=== PATIENT | male | born 1950 | race Caucasian/White ===

== ENCOUNTER → 2017-05-24 07:36 | Outpatient (CLI) | payer MEDICARE, OTHER, SELFPAY ==
--- NOTE | 2017-05-24 07:41 | CT_ITS ---
EXAM: CT LUNG LOW DOSE WO CONTRAST COMPARISON: None HISTORY: 66-year-old male asymptomatic with 30 pack-year smoking history ORDERING PHYSICIAN: Alondra Quan MD PATIENT AGE: 66 years TECHNIQUE: The exam was performed on a GE Light Speed [address] scanner using 2.90 mGy CTDI. A low dose helical CT CHEST was performed on a multi-detector scanner. All CT scans at the facility use one or more dose reduction, viz: automated exposure control; ma/kV adjustment per patient size (including targeted exams where dose is matched to indication; i.e. head); or iterative reconstruction technique. The LDCT was performed in a facility that meets the criteria for the screening program. Data regarding this exam was submitted to ACR which is an approved registry. The order for this exam indicates that it came as a result of a lung cancer screening counseling shard decision-making visit that included all the elements required of such a visit including smoking cessation. The radiologist interpreting this exam meets the CMS criteria for the LDCT lung cancer screening program. The exam is reported using the Lung-RADS classification scale and reported to the ACR registry. NOTE: This study was performed for the specific purposes of lung cancer screening and is not an alternative to diagnostic chest CT. RADIATION DOSE: CTDI vol(CT dose Index-volume) = 2.90mG DLP (Dose Length Product) = 112.03 mGcm FINDINGS: Centrilobular emphysematous change is. Hyperinflation with bronchial thickening consistent with obstructive chronic bronchitis. Severe coronary artery calcifications are present. Cardiac pacemaker device is present.. 4 mm noncalcified nodule right upper lobe. IMPRESSION: 1. Lung RADS Category: 2, benign 2. Other findings: Centrilobular emphysema/COPD Coronary artery disease RECOMMENDATIONS: 12 month LDCT follow-up
== END ==
PROVIDERS: Family Provider Family Medicine; PCP Family Medicine; Visit Provider Family Medicine
DX: Z87.891 Personal history of nicotine dependence (principal); Z12.2 Encounter for screening for malignant neoplasm of respiratory organs

== ENCOUNTER → 2018-08-10 12:48 | Outpatient (CLI) | payer MEDICARE, OTHER, SELFPAY ==
--- NOTE | 2018-08-10 12:56 | XR_ITS ---
XR ribs LT 2V HISTORY: ITS.REASON: LT CHEST WALL PAIN ORDERING PHYSICIAN: Aba Espinoza MD PATIENT AGE: 67 years Comparison: None FINDINGS: Bone density appears normal. There is a complete mildly fracture through the lateral left seventh rib. There is no definite evidence of pneumothorax or pleural effusion. Impression: Acute lateral left seventh rib fracture.
--- NOTE | 2018-08-10 12:56 | XR_ITS ---
XR chest 2V HISTORY: ITS.REASON: LT CHEST WALL PAIN ORDERING PHYSICIAN: Aba Espinoza MD PATIENT AGE: 67 years COMPARISON: 06/12/2016. FINDINGS: Comparison was also made with a left-sided rib series performed on the same day. The lateral left seventh rib fracture is not well seen on this exam. Cardiac silhouette, hilar areas and pulmonary vessels are normal. Lungs are clear without pleural effusion or pneumothorax. There is now a left subclavian cardiac pacemaker with the lead wire projected over the expected right ventricle area. This appears to be intact. Also noted is some pleural-based density along the left lateral hemithorax area. The underlying ribs however appear to be intact except the rib series showed a acute lateral left rib fracture. Impression: Nonspecific left lateral pleural process which could be thickening although considering symptoms in this area and a acute left lateral rib fracture consider CT scan of this area for further evaluation.
== END ==
PROVIDERS: PCP Family Medicine; Visit Provider Family Medicine
DX: R07.89 Other chest pain (principal)
CPT/HCPCS: 71046; 71100

== ENCOUNTER → 2019-06-29 07:40 | Outpatient (CLI) | payer MEDICARE, OTHER, SELFPAY ==
--- NOTE | 2019-06-29 07:45 | US_ITS ---
PROCEDURE: US EXTREMITY LT LIMITED CLINICAL INDICATION: BURSITIS Palpable mass of the elbow posteriorly COMPARISON: No exams were available for comparison FINDINGS: There is a hyperechoic collection along the posterior aspect of the elbow in the subcutaneous tissues which measures 5 x 3 cm. This contains hyperechoic mature which has some internal motion suggesting that this is fluid. There are few other areas of slightly decreased echogenicity which are rounded in nature IMPRESSION: Hyperechoic fluid collection along the posterior elbow with some internal debris. This could represent blood or pus or bursal fluid with internal debris. Dictated by: Je Plasencia MD 06/29/2019 21:16 Electronically signed by Je Plasencia MD in [place] 06/29/2019 21:16
== END ==
PROVIDERS: PCP Family Medicine; Visit Provider Family Medicine
DX: M70.22 Olecranon bursitis, left elbow (principal)
CPT/HCPCS: 76882

== ENCOUNTER → 2020-12-31 10:55 | Outpatient (CLI) | payer MEDICARE, OTHER, SELFPAY ==
--- NOTE | 2020-12-31 10:59 | XR_ITS ---
PROCEDURE: XR KNEE RT 3V CLINICAL INDICATION: RT KNEE PAIN COMPARISON: No exams were available for comparison FINDINGS: No acute fracture or dislocation. There are tricompartmental osteoarthritic changes greatest at the lateral compartment. There are tissue calcifications with vascular calcifications noted. One faint calcific density is present in dorsal to the distal femur at 14 mm and could be related to a soft tissue calcification or a loose body. Fragmentation is noted along tibial tuberosity which appears chronic IMPRESSION: Osteoarthritic changes, no acute finding. Possible loose body in the popliteal region. Dictated by: Je Plasencia MD 12/31/2020 18:55 Je Plasencia MD in [place] 12/31/2020 18:55
== END ==
PROVIDERS: PCP Family Medicine; Visit Provider Family Medicine
DX: M25.561 Pain in right knee (principal)
CPT/HCPCS: 73562

== ENCOUNTER → 2021-11-16 14:26 | Outpatient (CLI) | payer MEDICARE, OTHER, SELFPAY ==
--- NOTE | 2021-11-16 14:31 | XR_ITS ---
FINAL REPORT CLINICAL HISTORY: ISCHEMIC CARDIOMYOPAHY, S/P CABGX5 COMPARISON: 06/12/2016 FINDINGS: Cardiomegaly is noted. Postoperative changes are seen from median sternotomy. A left subclavian ICD is present. There are postoperative changes in the right axillary region. No acute pulmonary abnormalities identified. There is no pneumothorax. The bony thorax is intact. IMPRESSION: No acute cardiopulmonary process. Reviewed, Interpreted and Dictated by Pieter Sampson III, MD Transcribed by Sosa Hall Authenticated and [facility]
== END ==
PROVIDERS: PCP Family Medicine; Visit Provider Family Medicine
DX: I25.5 Ischemic cardiomyopathy (principal); Z95.1 Presence of aortocoronary bypass graft
CPT/HCPCS: 71046

== ENCOUNTER 2023-07-01 11:15 | Outpatient (CLI) | payer MEDICARE, SELFPAY ==
--- NOTE | 2023-07-01 11:24 | XR_ITS ---
FINAL REPORT CLINICAL HISTORY: PERIPHERAL POLYNEUROPATHY COMPARISON: None FINDINGS: 5 views of the lumbar spine were obtained. There is no evidence of fracture or dislocation. There is mild right curvature of the lumbar spine. There are moderate and severe degenerative changes present, with vacuum phenomenon present at the L4-5 and L5-S1 levels. There is mild retrolisthesis of L1 on L2, L2 on L3, L3 on L4, and L4 on L5. Vascular calcifications are noted. IMPRESSION: No acute bony abnormality. Moderate and severe degenerative changes as described. Reviewed, Interpreted and Dictated by Pieter Sampson III, MD Transcribed by Julia Aguirre Authenticated and . [facility]
== END 2023-07-01 23:59 | disposition home or self-care (01) ==
PROVIDERS: PCP Family Medicine; Visit Provider Family Medicine
DX: G62.9 Polyneuropathy, unspecified (principal)
CPT/HCPCS: 72110

== ENCOUNTER 2024-01-18 14:45 | Outpatient (CLI) | payer MEDICARE, SELFPAY ==
--- OUTSIDE RECORDS SUMMARY | 2024-01-18 14:48 | XMS_ITS ---
Author Organization [facility] Address [address] [facility] [address] [id number] Care Team Providers Care Jacquard Loom Carpet Weaver Name Role Phone Mirta Quan Primary Care Provider Mariah Heaton Unavailable [phone] ALLERGIES No Known Allergies REASON FOR VISIT wanting an xray, possible cracked ribs MEDICATIONS Medication SIG (Take, Route, Frequency, Duration) Notes Start Date End Date Status Zithromax Z-Da 250 MG 2 pills first day then one daily for 4 days orally as directed for 5 days 01/18/2024 Active Albuterol Sulfate HFA 108 (90 Base) MCG/ACT 1 puff as needed Inhalation every 4 hrs, prn 01/18/2024 Active Escitalopram Oxalate 20 MG TAKE 1 TABLET BY MOUTH EVERY DAY FOR 90 DAYS for 90 days Not-Taking Rosuvastatin Calcium 40 MG 1 tablet Orally Once a day Active Allopurinol 100 MG 1 tablet Orally Once a day for 90 days Active glipiZIDE 5 MG 3 tab(s) orally once a day Active Spironolactone 25 MG 1 tab(s) orally onc e a day Active Jardiance 25 MG 1 tab(s) orally once a day (in the morning) Active Carvedilol 25 MG 1 tab(s) Orally 2 ti mes a day Active Entresto 24-26 MG 1 tab(s) Orally 2 ti mes a day Active Nitroglycerin 0.4 MG/SPRAY 1 spray(s) sublingually every 5 minutes Active Torsemide 10 MG 1 tablet orally once a prn Active Magnesium Oxide 400 MG 1 tab(s) orally 2 times a day Active Aspirin 81 MG 1 tab(s) orally once a day Active Basaglar KwikPen 100 UNIT/ML 24 units qd subcutaneously once daily Active rOPINIRole HCl 0.5 MG 1 tablet 1 to 3 ho urs before bedtime Orally at bedtime Active Nexletol 180 MG 1 tablet Orally Once a day for 30 day(s) Active Ozempic (0.25 or 0.5 MG/DOSE) 2 MG/3ML 0.5 Subcutaneous once a week Active SOCIAL HISTORY Tobacco Use: Social History Observation Description Date Smoking Status WARNING: Information temporarily unavailable Sex Assigned At : Social History Observation Description Sex Assigned At Unknown CURRENT TOBACCO USE: Question Answer Notes Are you a: Stopped 08/14/2016 VITAL SIGNS Weight 270.2 lbs 01/18/2024 Blood pressure systolic 118 mm Hg 01/18/20 24 Blood pressure diastolic 66 mm Hg 024 Heart Rate 73 /min 01/18/2024 Height 75 in 01/18/2024 BMI 33.77 kg/m2 01/18/2024 Encounters Encounter Location Date Provider Diagnosis [facility] [id number] 01/18/2024 Mariah Crowdy Chest wall pain R07. 89 ; Pain, joint, shoulder, right M25.511 ; Acute midline thoracic back pain M54.6 ; Wheezing R06.2 and Bilateral rales R09.89 ASSESSMENTS Encounter Date Diagnosis Assessment Notes Treatment Notes Treatment Clinical Notes 01/18/2024 Chest wall pain (ICD-10 - R07.89) 01/18/2024 Pain, joint, shoulder, right (ICD-10 - M25.511) 01/18/2024 Acute midline thoracic back pain (ICD-10 - M54.6) 01/18/2024 Wheezing (ICD-10 - R06.2) 01/18/2024 Bilateral rales (ICD-10 - R09.89) PLAN OF TREATMENT Medication Medication Name Sig Start Date Stop Date Notes Zithromax Z-Da 250 MG 2 pills first day then one daily for 4 days orally as directed for 5 days 01/18/2024 Albuterol Sulfate HFA 108 (9 0 Base) MCG/ACT 1 puff as needed Inhalation every 4 hrs, prn 01/18/2024 Pending Test Test Name Order Date X ray : Shoulder, right 01/18/2024 X ray : Spine, thoracic spine 01/18/2024 CXR 01/18/2024 CBC Fingerstick (in house) 01/18/2024 COVID 19- Full Respiratory Panel with CO VID 01/18/2024 Next Appt Details Follow Up: via phone to repo rt test results, Reason: Provider Name:Mirta Zarate er, 03/05/2024 01:15:00 PM, [address], [address], [place], [place], [id number], Progress Notes * Examination Category Sub-Category Detail Notes General Examination HEENT: sclera and c onjunctiva clear, PERRLA, TM's normal, translucent Heart: RSR Lungs: bilateral wheezes an d rales Abdomen: bowel sounds present , soft and nontender, no organomegaly or masses, no guarding or rigidity Extremities: ttp along the right AC joint and upper humerus General Appearance: NAD Skin: normal, no rash Neurologic Exam: Intact, gait normal Neck: supple, no lymphaden opathy Oral cavity: no lesions, mucosa m oist and WNL, no erythema Peripheral pulses: normal (2+) bilatera lly Back: ttp along the mid T- spine Chest: normal shape and exp ansion, ttp along the entire right chest wall, pain with breathing History and Physical Notes * HPI (History of Present Illness) Category Sub-Category Detail Notes Shoulder/Upper arm shoulder pain Pt presents t frannie to discuss getting an order for an x-ray. Pt sts that he fell on Tuesday evening and hurt his right shoulder and right side of the chest. Pt sts that he is hurting all the way around into the left side of his ribs. Pt sts that he feels he may have broken something or possible punctured a lung. Pt has an audible wheeze and crackling with his breaths. Pt sts that he hurts every time he coughs
--- OUTSIDE RECORDS SUMMARY | 2024-01-18 14:48 | XMS_ITS ---
Care Plan - [facility] Created on: January 18, 2024 Dane Ray : 1950 Sex: Male Author Organization [facility] Address [address] [place] [phone] Phone Care Team Providers Care Tumor Registrar Name Role Phone Edvin VELAZQUEZ, [place] Cervantes Unavailable
--- OUTSIDE RECORDS SUMMARY | 2024-01-18 14:48 | XMS_ITS | Encounter Summary ---
[facility] Address [address] [place] [address] Care Team Providers Care Naval Designer Name Role Phone Aba Espinoza MD Primary Care Provider + [phone] Encounter Details Date Type Department Care Team (Late st Contact Info) Description 04/06/2022 Telephone [facility] MEDICAL [facility] SLEEP MEDICINE [address] [phone] Kelsi Hartman Social History Tobacco Use Types Packs/Day Years Used Date Smoking Tobacco: Former Cigarettes 3 26.7 1 - 07/29/2005 Smokeless Tobacco: Never Comments:stopped june 2016 Alcohol Use Standard Drinks/Week Comments Not Currently 12 (1 standard drink = 0.6 oz pu re alcohol) Sex and Gender Information Value Date Recorded Sex Assigned at Male 11/12/2019 1:21 PM EDT Legal Sex Male 8:04 AM EDT Gender Identity Male 11/12/2019 1:21 PM EDT Sexual Orientation Not on file documented as of this encounter Miscellaneous Notes * Telephone Encounter - Kelsi Hartman MA - 04/09/2022 2:57 PM EST PRESCRIPTION HAS BEEN SENT TO [facility] ON 04/08/2022 * Telephone Encounter - Kelsi Hartman MA - 04/06/2022 10:17 AM ESTSummary: refill request rOPINIRole (REQUIP) 0.5 MG tablet [facility] Pharmacy - JERALD Morrison - [facility] AT Portal to Registered [facility] Sites - [phone] - [phone] documented in this encounter Plan of Treatment Upcoming Encounters Date Type Department Care Team (Late st Contact Info) Description 03/02/2024 2:45 PM EST Telemedicine [facility] SLEEP MEDICINE [address] [facility] [address] [place] [phone] Rosalino Tom, CORRECTIVE AND MANUAL ARTS THERAPIST [address] [place] [address] documented as of this encounter Visit Diagnoses Not on filedocumented in this encounter Care Teams Naval Designer Relationship Specialty Start Date End Date Aba Espinoza MD [address] [facility] [address] [place] [address] PCP - General Family Medicine 02/17/18 documented as of this encounter
--- OUTSIDE RECORDS SUMMARY | 2024-01-18 14:48 | XMS_ITS | Encounter Summary ---
Author Organization [facility] Address [address] [place] [address] Care Team Providers Care Director Digital Strategy Name Role Phone Aba Espinoza MD Primary Care Provider + [phone] Reason for Visit * Reason Comments Med Refill Encounter Details Date Type Department Care Team (Late st Contact Info) Description 05/07/2021 Refill [facility] CARDIOLOGY [address] [facility] [address] [place] [phone] [place] Morataya MD [address] [facility] [address] [place] [address] Med Refill Social History Tobacco Use Types Packs/Day Years Used Date Smoking Tobacco: Former Cigarettes 3 26.7 1 - 07/29/2005 Smokeless Tobacco: Never Comments:stopped june 2016 Alcohol Use Standard Drinks/Week Comments Yes 12 (1 standard drink = 0.6 oz pu re alcohol) Sex and Gender Information Value Date Recorded Sex Assigned at Male 11/12/2019 1:21 PM EDT Legal Sex Male 8:04 AM EDT Gender Identity Male 11/12/2019 1:21 PM EDT Sexual Orientation Not on file documented as of this encounter Plan of Treatment Upcoming Encounters Date Type Department Care Team (Late st Contact Info) Description 03/02/2024 2:45 PM EST Telemedicine [facility]EP [facility] [address] [facility] [address] [place] [phone] Rosalino Tom, BILINGUAL LEGAL ASSISTANT [address] [place] [address] documented as of this encounter Visit Diagnoses Not on filedocumented in this encounter Care Teams Director Digital Strategy Relationship Specialty Start Date End Date Aba Espinoza MD [address] [facility] [address] [facility] [address] [facility] [place] [address] PCP - General Family Medicine 02/17/18 documented as of this encounter
--- OUTSIDE RECORDS SUMMARY | 2024-01-18 14:48 | XMS_ITS | Encounter Summary ---
Author Organization [facility] Address [address] [place] [address] Care Team Providers Care Meteorology Teacher Name Role Phone Aba Espinoza MD Primary Care Provider + [phone] Encounter Details Date Type Department Care Team (Late st Contact Info) Description 11/25/2021 Documentation [facility] C[facility]ATION [address] [place] [phone] Armida Mccarthy MA Social History Tobacco Use Types Packs/Day Years [...] on file documented as of this encounter Progress Notes * Armida Mccarthy MA - 11/25/2021 4:15 PM EDT Order received for Phase II Cardiac Rehab. Staff sent referral to [facility] in regards to scheduling. [facility] is the closest facility to patients home. Staff available if additional assistance needed. documented in this encounter Plan of Treatment Upcoming Encounters Date Type Department Care Team (Late st Contact Info) Description 03/02/2024 2:45 PM EST Telemedicine [facility] SLEEP MEDICINE [address] [facility] [address] [place] [address] Rosalino Tom, TERRAZZO LAYER HELPER [address] [place] [address] documented as of this encounter Visit Diagnoses Not on filedocumented in this encounter Care Teams Meteorology Teacher Relationship Specialty Start Date End Date Aba Espinoza MD [address] [facility] [address] [place] [address] PCP - General Family Medicine 02/17/18 documented as of this encounter
--- OUTSIDE RECORDS SUMMARY | 2024-01-18 14:48 | XMS_ITS ---
Author Organization [facility] Address [address] [facility] [address] [facility] [address] [place] [id number] Care Team Providers Care Certified Master Safe Technician Name Role Phone Mirta Quan Primary Care Provider REASON FOR VISIT Test results* Encounters Encounter Location Date Provider Diagnosis [facility] [address] [facility] [address] [place] [phone] 01/10/2024 Mirta Quan PLAN OF TREATMENT Next Appt Details Provider Name:Mirta Zarate er, 03/05/2024 01:15:00 PM, [address] [facility], [address], [place], [phone],
--- OUTSIDE RECORDS SUMMARY | 2024-01-18 14:48 | XMS_ITS | Clinical Summary ---
Author Organization [facility] Address [address] [place] [address] Care Team Providers Care Coal Bagger Name Role Phone Aba Espinoza MD Primary Care Provider + [phone] Allergies Active Allergy Reactions Criticality Noted Date Comments Epinephrine Other (See Comments) 05/04/2021 Contraindicated related to pt's EF=25% Medications escitalopram (LEXAPRO) 20 MG tablet Take 20 mg by mouth Daily. Active glipiZIDE (GLUCOTROL) 5 MG tablet Take 5 mg by mouth Daily. Active metFORMIN (GLUCOPHAGE) 1000 MG tablet Take 1,000 mg by mouth 2 (Two) Times a Day With Meals. Active aspirin 81 MG chewable tablet Chew 1 tablet Daily. 30 tablet 12 07/07/2016 3:28 PM EDT 7 Active spironolactone (ALDACTONE) 25 MG tablet Take 1 tablet by mouth Daily. 30 tablet 07/07/2016 3:28 PM EDT 7 Active carvedilol (COREG) 3.125 MG tablet Take 1 tablet by mouth 2 (Two) Times a Day With Meals. 60 tablet 7 Active Additional Information Patient taking differently:3.125 mg Oral 2 Times Daily With Meals,Takes 6.25 in evening, Reported on 11/25/2021 simvastatin (ZOCOR) 40 MG tablet Take 40 mg by mouth Every Night. Active magnesium oxide (MAG-OX) 400 MG tablet Take 400 mg by mouth 2 (Two) Times a Day. Active nitroglycerin (NITROLINGUAL) 0.4 MG/SPRAY spray PLACE 1 SPRAY UNDER THE TONGUE EVERY 5 MINUTES NEEDED FOR CHEST PAIN. 4.9 g 2 0 Active empagliflozin (JARDIANCE) 25 MG tablet tablet Take by mouth Daily. Active allopurinol (ZYLOPRIM) 100 MG tablet 1 tablet Daily. 1 Active BD Pen Needle Dori 2nd Gen 32G X 4 MM misc 1 Active Entresto 24-26 MG tablet TAKE ONE TABLET BY MOUTH TWICE A DAY 180 tablet 3 2 Active Insulin Glargine (BASAGLAR KWIKPEN SC) Inject 10 Units under the skin into the appropriate area as directed Every Evening. Active torsemide (DEMADEX) 10 MG tablet 1 tablet 3 (Three) Times a Week. Mon, wed, and fri 2 Active acetaminophen (TYLENOL) 325 MG tablet Take 2 tablets by mouth 2 (Two) Times a Day. Active rOPINIRole (REQUIP) 0.5 MG tabletIndicatio ns:Restless legs syndrome (RLS) TAKE 1 TABLET EVERY NIGHT 1 HOUR BEFORE BEDTIME 30 tablet 11 4 Active Active Problems Problem Noted Date Diagnosed Date Obesity, Class I, BMI 30-34.9 08/02/2019 Uncontrolled diabetes mellit us with stage 3 chronic kidney disease, without long-term current use of insulin 02/22/2019 Ischemic heart disease 08/30/2018 Dyslipidemia 08/30/2018 Severe obesity (BMI 35.0-39.9) with comorbidity 06/01/2018 Chronic systolic heart failure 11/26/2016 Cardiomyopathy 10/13/2016 Essential hypertension 10/13/2016 Mixed hyperlipidemia 10/13/2016 CAD (coronary artery disease) 07/06/2016 Systolic CHF 07/06/2016 Abnormal stress test 07/05/2016 Hypertension associated with diabetes 08/13/2014 Screening PSA (prostate specific antigen) 2014 Male erectile disorder 04/11/2014 Dyslipidemia 04/11/2014 Immunizations Name Administration Dates Next Due Fluzone High-Dose 65+YRS 11/14/2018,12/15/2017,1 Hepatitis A 03/10/2018 Influenza, Unspecified 09/29/2019 Pneumococcal Polysaccharide (PPSV23) 12/07/2016 Family History Medical History Relation Name Comments Diabetes Father Victorino nightingale Heart disease Father Victorino woodallingjose Hypertension Father Victorino nightingale Heart attack Mother Erin nightingale Heart disease Mother Erin nightingale Heart failure Mother Erin nightingale Hypertension Mother Erin pham Stroke Mother Erin pham Relation Name Status Comments Father Victorino pham Mother Erin pham Social History Tobacco Use Types Packs/Day Years Used Date Smoking Tobacco: Former Cigarettes 3 26.7 1 - 07/29/2005 Smokeless Tobacco: Never Tobacco Cessation:Counseling Given: Not Answered Comments:stopped june 2016 Alcohol Use Standard Drinks/Week Comments Not Currently 12 (1 standard drink = 0.6 oz pu re alcohol) Abuse Screen Answer Date Recorded Unsafe at Home or Work/School Not on file Feels Threatened by Someone? Not on file 08/2022 Does Anyone Keep You from Co ntacting Others or Doint Things Outside the Home? Not on file 11/20/2022 Physical Sign of Abuse Present Not on file 1 Housing Stability Answer Date Recorded Current Living Arrangements Not on file 08/2022 Potentially Unsafe Housing Conditions Not on antonio e 11/20/2022 Family and Community Support Answer Mario e Recorded Help with Day-to-Day Activities Not on file 11/20/2022 Lonely or Isolated Not on file 11/20/2022 Employment Answer Date Recorded Do you want help finding or keeping work or a jaleel b? Not on file 11/20/2022 Disabilities Answer Date Recorded Concentrating, Remembering, or Making Decisions Difficulty Not on file 11/20/2022 Doing Errands Independently Difficulty Not on fi le 11/20/2022 Education Answer Date Recorded Help with school or training? Not on file Preferred Language Not on file 11/20/2022 Sex and Gender Information Value Date Recorded Sex Assigned at Male 11/12/2019 1:21 PM EDT Legal Sex Male 8:04 AM EDT Gender Identity Male 11/12/2019 1:21 PM EDT Sexual Orientation Not on file Last Filed Vital Signs Vital Sign Reading Time Taken Comments Blood Pressure 126/62 11/25/2021 10:34 AM EDT Pulse 73 11/25/2021 10:34 AM EDT Temperature 36.3 ??C (97.3 ??F) 05/04/2021 10:46 AM E DT Respiratory Rate 16 05/04/2021 9:11 AM EDT Oxygen Saturation 99% 11/25/2021 10:34 AM EDT Inhaled Oxygen Concentration - - Weight 122 kg (270 lb) 03/04/2023 1:00 PM EST Height 190.5 cm (6' 3 ) 03/04/2023 1:00 PM EST Body Mass Index 33.75 03/04/2023 1:00 PM EST Plan of Treatment Upcoming Encounters Date Type Department Care Team (Late st Contact Info) Description 03/02/2024 2:45 PM EST Telemedicine [facility] [address] [place] [address] Rosalino Tom, MACHINE DRILLER [address] [place] [id number] Health Maintenance Due Date Last Done Comments BMI FOLLOWUP 1950 COLOGUARD 1950 COLON CANCER SCREENING 5 YEA R SIGMOIDOSCOPY [address] COLONOGRAPHY 1950 FECAL OCCULT BLOOD TEST 1950 FIT Testing (1 year) 1950 ANNUAL WELLNESS VISIT 07/05/2016 HEPATITIS C SCREENING 07/05/2016 Pneumococcal Vaccine 65+ (2 of 2 - PCV) 12/07/2017 12/07/2016 DIABETIC EYE EXAM 10/10/2019 10/09/2018, 07/04/2017 INFLUENZA VACCINE 08/15/2023 02/04/2022, , 10/12/2021, Additional history exists HEMOGLOBIN A1C 08/24/2023 02/23/2023, 10/15, 04/02/2022, Additional history exists COVID-19 Vaccine (4 - 2023-2 5 season) 2023 12/30/2020, 03/18/2020, 02/20/2020 LIPID PANEL 10/28/2023 10/27/2022, 03/17, 04/02/2022, Additional history exists TDAP/TD VACCINES (2 - Td or Tdap) 02/06/2030 020 COLONOSCOPY 05/05/2031 05/04/2021, 07/18/2017 COLORECTAL CANCER SCREENING 05/05/2031 ZOSTER VACCINE Completed 04/15/2020, 02/07/2020 URINE MICROALBUMIN Discontinued 10/27/2022, 0 04/02/2022, 02/19/2021, Additional history exists Medical Devices Implanted Type Area Sql Ssrs Ssis Developer Device Identifier Shelf Expiration Date Model / Serial / Lot Pacemaker-12/06 Implanted:12/06 (Quantity not on file) Pacemaker [id number] / / Description:place Nov 2016 vira casillas [facility], [facility] Lj Acevedo Insurance MEDICARE A & B Member Subscriber Plan / Payer (Ef fective 2016-Present) Name:Dane Pham Member ID:[id number] Relation to Subscriber:Self Name:Dane Pham Subscriber ID:[id number] Payer ID:[id number] Group ID:Not on file Type:Not on file Address: [id number] [employer] [facility] Advance Directives * Full Code (Latest Code Status on File) Date Activated Date Inactivated Comments 07/05/2016 5:25 PM 07/07/2016 6:46 PM Question Answer Comments Level Of Support Discussed With: Patient Care Teams Coal Bagger Relationship Specialty Start Date End Date Aba Espinoza MD [address] [facility] [address] [place] [address] PCP - General Family Medicine 02/17/18
--- OUTSIDE RECORDS SUMMARY | 2024-01-18 14:48 | XMS_ITS | Encounter Summary ---
Author Organization [facility] Address [address] [place] [address] Care Team Providers Care Snow Maker Name Role Phone Aba Espinoza MD Primary Care Provider [phone] Reason for Referral * Rehabilitation - Outpatient (Routine) - Closed Specialty Diagnoses / Procedures Referred By Contact Referred To Contact Cardiac Rehabilitation Diagnoses S/P CABG (coronary artery bypass graft) Heriberto Sotomayor MD [address] [address] Phone: tel: fax: [facility] CARDIAC REHABILIATATION [address] [place] [address] Phone: tel: Referral ID Status Reason Start Date Expiration Date V isits Requested Visits Authorized [id number] Closed Specialty Services Required 11/25/2021 11/25/2022 1 1 Reason for Visit * Reason Comments Coronary Artery Disease Ischemic heart disease Encounter Details Date Type Department Care Team (Late st Contact Info) Description 11/25/2021 10:45 AM EDT Office Visit [facility] CARDIOLOGY [address] [facility] [address] [place] [address] Heriberto Sotomayor MD [address] [facility] [address] [place] [address] S/P CABG (coronary artery bypass graft) (Primary Dx); Ischemic cardiomyopathy; Primary hypertension; Type 2 diabetes mellitus with other circulatory complication, without long-term current use of insulin; Chronic systolic heart failure; Severe obesity (BMI 35.0-39.9) with comorbidity; Stage 3a chronic kidney disease Social History Tobacco Use Types Packs/Day Years [...] on file documented as of this encounter Last Filed Vital Signs Vital Sign Reading Time Taken Comments Blood Pressure 126/62 11/25/2021 10:34 AM EDT Pulse 73 11/25/2021 10:34 AM EDT Temperature - - Respiratory Rate - - Oxygen Saturation 99% 11/25/2021 10:34 AM EDT Inhaled Oxygen Concentration - - Weight 113 kg (250 lb) 11/25/2021 10:34 AM EDT Height 190.5 cm (6' 3 ) 11/25/2021 10:34 AM EDT Body Mass Index 31.25 11/25/2021 10:34 AM EDT documented in this encounter Progress Notes * Heriberto Sotomayor MD - 11/25/2021 10:45 AM EDTAssociated Order(s): ECG 12 Lead Post-Procedure Diagnose(s): S/P CABG (coronary artery bypass graft) Established Patient Office Visit Patient Name: Dane Ray : 1950 Care Team: Patient Care Team: Aba Espinoza MD as PCP - General (Family Medicine) Chief Complaint Patient presents with ??? Coronary Artery Disease ??? Ischemic heart disease Patient ID: Dane Ray is a 71 y.o. 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 PHYSICIAN: Aba Espinoza MD REMOTE COMPRESSOR STATION ENGINEER: Steve Valentino MD HEART FAILURE/TRANSPLANT COMPRESSOR STATION ENGINEER:??Liss Acevedo MD ([facility]), Gary Vu MD CARDIOTHORACIC SURGEON: Surya Lopez MD; Dr. Bird at [facility], Amy Higuera MD ([facility]) UTILITY SERVICE WORKER: Fili Sanchez MD SLEEP PHYSICIAN: Heriberto Chaudhary MD Problem List: Coronary artery disease/ischemic cardiomyopathy - Echocardiogram,??07/13/2016; moderately enlarged left atrium, moderately dilated LV with severely reduced LV systolic function, LVEF 0.20-0.25 with multiple wall motion abnormalities, mild MR and TR, RVSP 38 mmHg Exercise stress test,??06/30/2016; abnormal, myocardial perfusion imaging abnormal, overall LV systolic function is abnormal with regional wall motion abnormalities, LVEF 0.18 Right and Left heart catheterization,??07/05/2016; left main 40% distal,??LAD 80% mid with collateral flow to the RCA, left circumflex 80% plaque, RCA 100% mid with collaterals from the left and right, LVEF 0.10, mixed ischemia/nonischemic cardiomyopathy, 2 vessel CAD, not a candidate for CABG at this time after cardiac viability testing and might need an LVAD and/or heart transplant, transplant specialist at [facility],??07/28/2016; LVEF 0.17, mixed viability area in the mid to distal LAD territory and nonviable areas of the RCA territory, RV normal in size, RVEF 34%, biatrial enlargement Medtronic ICD model number [id number] implanted at [facility],??12/06/2016?? TTE,??06/30/2017, [facility]: LV severely dilated, grade 2 LV??diastolic??dysfunction, EF??0.15, no LV thrombus, LA mildly dilated, aortic valve exhibits sclerosis Echocardiogram,??December 2017 at [facility]; EF??15% per patient report October 2019 with TTE with EF 20% at [facility] Echocardiogram 07/07/2020 at [facility] with EF 20% Acceptable remote device interrogation October 2020 with 8.3 year battery longevity, no ventricular arrhythmias Occasional PVCs Type 2 diabetes mellitus, hemoglobin A1c 7%, 6.3% October 2020 Hypertension Hyperlipidemia Former??tobacco use; on Chantix, quit 08/13/2016 Mild-moderate??obesity; BMI 33.64 Anxiety Remote fall with left rib fracture - data deficit, July 2018. 10. Surgical history: [facility] BiV ICD,??November 2016 HPI: Dane Ray is a 71 y.o. male who presents today for routine follow-up after bypass surgery in October at [facility]. He was admitted 10/28-11/05 at [facility] and underwent multivessel bypass (TREVIÑO-LAD, RSV-OM2, RSV-D1, RSV-PDA) with Dr. Rob Higuera. They have had chest x-raywith her PCP locally as well as blood work and had a telemedicine visit with the CT surgery clinic r eports things were going well. Mr. Ray has been able to ambulate and go up multiple flightsof stairs without issue and he feels like he is getting increasing strength and mobility in his upper extremities as well. He and his report that his sternotomy and vein harvest sites are all healing well. They are interested in pursuing cardiac rehab closer to home. He has been taking a regular log of his blood pressures and this morning did have a systolic of 77 mmHg however he felt asymptomatic and denies any dizziness with this. Otherwise his pressures have been 80s to 110s and tolerating activity well with no orthostasis. Subjective Review of Systems Constitutional: Negative for fatigue. Respiratory: Negative for shortness of breath. Cardiovascular: Positive for leg swelling. Negative for chest pain and palpitations. Neurological: Negative for dizziness. Social History Tobacco Use Smoking Status Former ??? Packs/day: 3.00 ??? Years: 25.00 ??? Pack years: 75.00 ??? Types: Cigarettes ??? Start date: 11/15/1978 ??? Quit date: 07/29/2005 ??? Years since quittin.3 Smokeless Tobacco Never Tobacco Comments stopped june 2016 Allergies Allergen Reactions ??? Epinephrine Other (See Comments) Contraindicated related to pt's EF=25% Current Outpatient Medications: ??? acetaminophen (TYLENOL) 325 MG tablet, Take 2 tablets by mouth 2 (Two) Times a Day., Disp: , Rfl: ??? allopurinol (ZYLOPRIM) 100 MG tablet, 1 tablet Daily., Disp: , Rfl: ??? aspirin 81 MG chewable tablet, Chew 1 tablet Daily., Disp: 30 tablet, Rfl: 12 ??? BD Pen Needle Dori 2nd Gen 32G X 4 MM [facility], , Disp: , Rfl: ??? carvedilol (COREG) 3.125 MG tablet, Take 1 tablet by mouth 2 (Two) Times a Day With Meals. (Patient taking differently: Take 1 tablet by mouth 2 (Two) Times a Day With Meals. Takes 6.25 in evening), Disp: 60 tablet, Rfl: 0 ??? empagliflozin (JARDIANCE) 25 MG tablet tablet, Take by mouth Daily., Disp: , Rfl: ??? Entresto 24-26 MG tablet, TAKE ONE TABLET BY MOUTH TWICE A DAY, Disp: 180 tablet, Rfl: 3 ??? escitalopram (LEXAPRO) 20 MG tablet, Take 20 mg by mouth Daily., Disp: , Rfl: ??? glipiZIDE (GLUCOTROL) 5 MG tablet, Take 5 mg by mouth Daily., Disp: , Rfl: ??? Insulin Glargine (BASAGLAR KWIKPEN SC), Inject 10 Units under the skin into the appropriate area as directed Every Evening., Disp: , Rfl: ??? magnesium oxide (MAG-OX) 400 MG tablet, Take 400 mg by mouth 2 (Two) Times a Day., Disp: , Rfl: ??? metFORMIN (GLUCOPHAGE) 1000 MG tablet, Take 1,000 mg by mouth 2 (Two) Times a Day With Meals., Disp: , Rfl: ??? nitroglycerin (NITROLINGUAL) 0.4 MG/SPRAY spray, PLACE 1 SPRAY UNDER THE TONGUE EVERY 5 MINUTESAS NEEDED FOR CHEST PAIN., Disp: 4.9 g, Rfl: 2 ??? rOPINIRole (REQUIP) 0.5 MG tablet, TAKE ONE TABLET BY MOUTH ONCE NIGHTLY ONE HOUR BEFORE BEDTIME, Disp: 30 tablet, Rfl: 11 ??? simvastatin (ZOCOR) 40 MG tablet, Take 40 mg by mouth Every Night., Disp: , Rfl: ??? spironolactone (ALDACTONE) 25 MG tablet, Take 1 tablet by mouth Daily., Disp: 30 tablet, Rfl: 12 ??? torsemide (DEMADEX) 10 MG tablet, 1 tablet 3 (Three) Times a Week. Mon, wed, and fri, Disp: , Rfl: Objective Vitals: 11/25/21 1034 BP: 126/62 BP Location: Left arm Patient Position: Sitting Pulse: 73 SpO2: 99% Weight: 113 kg (250 lb) Height: 190.5 cm (75 ) Body mass index is 31.25 kg/m??. Gen: well developed, older white male, sitting up on exam room been, no distress HEENT: MMM, sclera anicteric, conjunctiva normal CV: regular rate, regular rhythm, well approximated sternotomy, no erythema or induration surrounding incision, normal S1, S2. Pulm: RA, normal work of breathing, no wheezes, rales, rhonchi Abd: soft, non-tender, non-distended, +bowel sounds Ext: normal bulk for age, normal tone, 1+ edema of right lower extremity, vein harvest sites healing well Neuro: alert, oriented, face symmetrical, moving all extremities well Psych: normal mood, appropriate affect RESULTS: ECG 12 Lead Date/Time: 11/25/2021 1:29 PM Performed by: Heriberto Sotomayor MD Authorized by: Heriberto Sotomayor MD Comparison: compared with previous ECG from 11/19/2020 Comparison to previous ECG: T wave inversions in 1 and aVL more prominent inferior Q waves Rhythm: sinus rhythm Rate: normal BPM: 73 Conduction: 1st degree AV block Conduction comments: MO 242 ms Q waves: II, aVL and III ST Segments: ST segments normal T elevation: I and aVL QRS axis: normal Other findings: poor R wave progression Clinical impression: abnormal EKG Labs: Lab Results Component Value Date HGBA1C 7.4 (H) 06/04/2021 Lab Results Component Value Date CHLPL 133 06/04/2021 TRIG 172 (H) 06/04/2021 HDL 46 06/04/2021 LDL 58 06/04/2021 Most recent PCP note, imaging tests, and labs reviewed. Outside records from care everywhere were reviewed. Assessment & Plan ICD-10-CM ICD-9-CM 1. S/P CABG (coronary artery bypass graft) Z95.1 V45.81 2. Ischemic cardiomyopathy I25.5 414.8 3. Primary hypertension I10 401.9 4. Type 2 diabetes mellitus with other circulatory complication, without long- term current use of insulin (HCC) E11.59 250.70 5. Chronic systolic heart failure (HCC) I50.22 428.22 6. Severe obesity (BMI 35.0-39.9) with comorbidity ([facility]) E66.01 278.01 7. Stage 3a chronic kidney disease (HCC) N18.31 585.3 Coronary artery disease -CABG 10/28/21 (TREVIÑO-LAD, SVG- D1, SVG- OM1, SVG-PDA) Ischemic cardiomyopathy Chronic systolic congestive heart failure - Follows with [facility], surgeon is Dr. Rob Higuera - Doing well today on current medication regimen. Does have intermittent periods of hypotension however these are asymptomatic. I encouraged the patient to keep monitoring his blood pressure and callif he should develop symptoms of dizziness or presyncope. - Refer to cardiac rehab, patient prefers location closer to home - [facility] - GDMT includes sacubitril/valsartan 24/26mg, carvedilol 3.125mg a.m./6.25 mg p.m., spironolactone 25 mg daily, empagliflozin 25 mg daily - Maintaining weight on torsemide 3 times weekly Diabetes type 2, complicated by CKD and ASCVD - Empagliflozin, glipizide, metformin, glargine Return in about 6 months (around 05/26/2022). Alondra Sotomayor MD, MS 11/25/21 [facility] Cardiology [address] [place] [address] [address] [place] [address] documented in this encounter Plan of Treatment Upcoming Encounters Date Type Department Care Team (Late st Contact Info) Description 03/02/2024 2:45 PM EST Telemedicine [facility] SLEEP MEDICINE [address] [facility] [address] [place] [address] Rosalino Tom, FLATBED DRIVER [address] [place] [address] Scheduled Referrals Name Type Priority Associated Diagnoses Order Schedule Ambulatory Referral to Cardiac Rehab Outpatient Referral Routine S/P CABG (coronary artery bypass graft) Ordered: 11/25/2021 documented as of this encounter Procedures Procedure Name Priority Date/Time Associated Diagnosis Comments ECG 12-LEAD Routine 11/25/2021 S/P CABG (coronary artery bypass graft) documented in this encounter Results * ECG 12-LEAD (11/25/2021) Narrative 11/25/2021 Heriberto Sotomayor MD ? 11/25/2021 ??1:41 PM ECG 12 Lead Date/Time: 11/25/2021 1:29 PM Performed by: Heriberto Sotomayor MD Authorized by: Heriberto Sotomayor MD Comparison: compared with previous ECG from 11/19/2020 Comparison to previous ECG: T wave inversions in 1 and aVL more prominent inferior Q waves Rhythm: sinus rhythm Rate: normal BPM: 73 Conduction: 1st degree AV block Conduction comments: MO 242 ms Q waves: II, aVL and III ST Segments: ST segments normal T elevation: I and aVL QRS axis: normal Other findings: poor R wave progression Clinical impression: abnormal EKG Procedure Note Heriberto Sotomayor MD - 11/25/2021 10:45 AM EDT Established Patient Office Visit Patient Name: Dane Ray : 1950 Care Team: Patient Care Team: Aba Espinoza MD as PCP - General (Family Medicine) Chief Complaint Patient presents with ? ? Coronary Artery Disease ? ? Ischemic heart disease Patient ID: Dane Ray is a 71 y.o. 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 PHYSICIAN: Aba Espinoza MD REMOTE COMPRESSOR STATION ENGINEER: Steve Valentino MD HEART FAILURE/TRANSPLANT COMPRESSOR STATION ENGINEER:??Liss Acevedo MD ([facility]),Gary Vu MD CARDIOTHORACIC SURGEON: Surya Lopez MD; Dr. Bird at [facility], Amy Higuera MD ([facility]) UTILITY SERVICE WORKER: Fili Sanchez MD SLEEP PHYSICIAN: Heriberto Chaudhary MD Problem List: Coronary artery disease/ischemic cardiomyopathy - Echocardiogram,??07/13/2016; moderately enlarged left atrium, moderatelydilated LV with severely reduced LV systolic function, LVEF 0.20-0.25 withmultiple wall motion abnormalities, mild MR and TR, RVSP 38 mmHg Exercise stress test,??06/30/2016; abnormal, myocardial perfusion imagingabnormal, overall LV systolic function is abnormal with regional wallmotion abnormalities, LVEF 0.18 Right and Left heart catheterization,??07/05/2016; left main 40% distal,??LAD80% mid with collateral flow to the RCA, left circumflex 80% plaque, MDP959% mid with collaterals from the left and right, LVEF 0.10, mixedischemia/nonischemic cardiomyopathy, 2 vessel CAD, not a candidate forCABG at this time after cardiac viability testing and might need an LVADand/or heart transplant, transplant specialist at [facility],??07/28/2016; LVEF 0.17, mixed viability area in the mid todistal LAD territory and nonviable areas of the RCA territory, RV normalin size, RVEF 34%, biatrial enlargement Med[place] [facility] [place] [id number]?? TTE,??06/30/2017, [facility]: LV severely dilated, grade 2LV??diastolic??dysfunction, EF??0.15, no LV thrombus, LA mildly dilated,aortic valve exhibits sclerosis Echocardiogram,??December 2017 at [facility]; EF??15% per patientreport October 2019 with TTE with EF 20% at [facility] Echocardiogram 07/07/2020 at [facility] with EF 20% Acceptable remote device interrogation October 2020 with 8.3 yearbattery longevity, no ventricular arrhythmias Occasional PVCs Type 2 diabetes mellitus, hemoglobin A1c 7%, 6.3% October 2020 Hypertension Hyperlipidemia Former??tobacco use; on Chantix, quit 08/13/2016 Mild-moderate??obesity; BMI 33.64 Anxiety Remote fall with left rib fracture - data deficit, July 2018. 10. Surgical history: [facility] BiV ICD,??November 2016 HPI: Dane Ray is a 71 y.o. male who presents today for routinefollow-up after bypass surgery in October at [facility]. He wasadmitted 10/28-11/05 at [facility] and underwent multivessel bypass(TREVIÑO-LAD, RSV-OM2, RSV-D1, RSV-PDA) with Dr. Rob Higuera. They have hadchest x-ray with her PCP locally as well as blood work and had atelemedicine visit with the CT surgery clinic reports things were goingwell. Mr. Ray has been able to ambulate and go up multipleflights of stairs without issue and he feels like he is getting increasingstrength and mobility in his upper extremities as well. He and his wifereport that his sternotomy and vein harvest sites are all healing well.They are interested in pursuing cardiac rehab closer to home. He has beentaking a regular log of his blood pressures and this morning did have asystolic of 77 mmHg however he felt asymptomatic and denies any dizzinesswith this. Otherwise his pressures have been 80s to 110s and toleratingactivity well with no orthostasis. Subjective Review of Systems Constitutional: Negative for fatigue. Respiratory: Negative for shortness of breath. Cardiovascular: Positive for leg swelling. Negative for chest pain andpalpitations. Neurological: Negative for dizziness. Social History Tobacco Use Smoking Status Former ? ? Packs/day: 3.00 ? ? Years: 25.00 ? ? Pack years: 75.00 ? ? Types: Cigarettes ? ? Start date: 11/15/1978 ? ? Quit date: 07/29/2005 ? ? Years since quittin.3 Smokeless Tobacco Never Tobacco Comments stopped june 2016 Allergies Allergen Reactions ? ? Epinephrine Other (See Comments) Contraindicated related to pt's EF=25% Current Outpatient Medications: ? ? acetaminophen (TYLENOL) 325 MG tablet, Take 2 tablets by mouth 2 (Two)Times a Day., Disp: , Rfl: ? ? allopurinol (ZYLOPRIM) 100 MG tablet, 1 tablet Daily., Disp: , Rfl: ? ? aspirin 81 MG chewable tablet, Chew 1 tablet Daily., Disp: 30 tablet,Rfl: 12 ? ? BD Pen Needle Dori 2nd Gen 32G X 4 MM misc, , Disp: , Rfl: ? ? carvedilol (COREG) 3.125 MG tablet, Take 1 tablet by mouth 2 (Two)Times a Day With Meals. (Patient taking differently: Take 1 tablet bymouth 2 (Two) Times a Day With Meals. Takes 6.25 in evening), Disp: 60tablet, Rfl: 0 ? ? empagliflozin (JARDIANCE) 25 MG tablet tablet, Take by mouth Daily.,Disp: , Rfl: ? ? Entresto 24-26 MG tablet, TAKE ONE TABLET BY MOUTH TWICE A DAY, Disp:180 tablet, Rfl: 3 ? ? escitalopram (LEXAPRO) 20 MG tablet, Take 20 mg by mouth Daily., Disp:, Rfl: ? ? glipiZIDE (GLUCOTROL) 5 MG tablet, Take 5 mg by mouth Daily., Disp: ,Rfl: ? ? Insulin Glargine (BASAGLAR KWIKPEN SC), Inject 10 Units under the skininto the appropriate area as directed Every Evening., Disp: , Rfl: ? ? magnesium oxide (MAG-OX) 400 MG tablet, Take 400 mg by mouth 2 (Two)Times a Day., Disp: , Rfl: ? ? metFORMIN (GLUCOPHAGE) 1000 MG tablet, Take 1,000 mg by mouth 2 (Two)Times a Day With Meals., Disp: , Rfl: ? ? nitroglycerin (NITROLINGUAL) 0.4 MG/SPRAY spray, PLACE 1 SPRAY UNDERTHE TONGUE EVERY 5 MINUTES NEEDED FOR CHEST PAIN., Disp: 4.9 g, Rfl:2 ? ? rOPINIRole (REQUIP) 0.5 MG tablet, TAKE ONE TABLET BY MOUTH ONCENIGHTLY ONE HOUR BEFORE BEDTIME, Disp: 30 tablet, Rfl: 11 ? ? simvastatin (ZOCOR) 40 MG tablet, Take 40 mg by mouth Every Night.,Disp: , Rfl: ? ? spironolactone (ALDACTONE) 25 MG tablet, Take 1 tablet by mouth Daily.,Disp: 30 tablet, Rfl: 12 ? ? torsemide (DEMADEX) 10 MG tablet, 1 tablet 3 (Three) Times a Week. Mon,wed, and fri, Disp: , Rfl: Objective Vitals: 11/25/21 1034 BP: 126/62 BP Location: Left arm Patient Position: Sitting Pulse: 73 SpO2: 99% Weight: 113 kg (250 lb) Height: 190.5 cm (75 ) Body mass index is 31.25 kg/m??. Gen: well developed, older white male, sitting up on exam room been, nodistress HEENT: MMM, sclera anicteric, conjunctiva normal CV: regular rate, regular rhythm, well approximated sternotomy, noerythema or induration surrounding incision, normal S1, S2. Pulm: RA, normal work of breathing, no wheezes, rales, rhonchi Abd: soft, non-tender, non-distended, +bowel sounds Ext: normal bulk for age, normal tone, 1+ edema of right lower extremity,vein harvest sites healing well Neuro: alert, oriented, face symmetrical, moving all extremities well Psych: normal mood, appropriate affect RESULTS: ECG 12 Lead Date/Time: 11/25/2021 1:29 PM Performed by: Heriberto Sotomayor MD Authorized by: Heriberto Sotomayor MD Comparison: compared with previous ECG from 11/19/2020 Comparison to previous ECG: T wave inversions in 1 and aVL more prominentinferior Q waves Rhythm: sinus rhythm Rate: normal BPM: 73 Conduction: 1st degree AV block Conduction comments: MO 242 ms Q waves: II, aVL and III ST Segments: ST segments normal T elevation: I and aVL QRS axis: normal Other findings: poor R wave progression Clinical impression: abnormal EKG Labs: Lab Results Component Value Date HGBA1C 7.4 (H) 06/04/2021 Lab Results Component Value Date CHLPL 133 06/04/2021 TRIG 172 (H) 06/04/2021 HDL 46 06/04/2021 LDL 58 06/04/2021 Most recent PCP note, imaging tests, and labs reviewed. Outside recordsfrom care everywhere were reviewed. Assessment & Plan ICD-10-CM ICD-9-CM 1. S/P CABG (coronary artery bypass graft) Z95.1 V45.81 2. Ischemic cardiomyopathy I25.5 414.8 3. Primary hypertension I10 401.9 4. Type 2 diabetes mellitus with other circulatory complication, withoutlong- term current use of insulin (HCC) E11.59 250.70 5. Chronic systolic heart failure (HCC) I50.22 428.22 6. Severe obesity (BMI 35.0-39.9) with comorbidity ([facility]) E66.01 278.01 7. Stage 3a chronic kidney disease (HCC) N18.31 585.3 Coronary artery disease -CABG 10/28/21 (TREVIÑO-LAD, SVG- D1, SVG- OM1,SVG-PDA) Ischemic cardiomyopathy Chronic systolic congestive heart failure - Follows with [facility], surgeon is Dr. Shinya Unai - Doing well today on current medication regimen. Does have intermittentperiods of hypotension however these are asymptomatic. I encouraged thepatient to keep monitoring his blood pressure and call if he shoulddevelop symptoms of dizziness or presyncope. - Refer to cardiac rehab, patient prefers location closer to home -[facility] - GDMT includes sacubitril/valsartan 24/26mg, carvedilol 3.125mga.m./6.25 mg p.m., spironolactone 25 mg daily, empagliflozin 25 mg daily - Maintaining weight on torsemide 3 times weekly Diabetes type 2, complicated by CKD and ASCVD - Empagliflozin, glipizide, metformin, glargine Return in about 6 months (around 05/26/2022). Alondra Sotomayor MD, MS 11/25/21 [facility] Cardiology [address] [place] [id number] Heriberto Sotomayor MD ECG ORDERABLES Final Result documented in this encounter Visit Diagnoses Diagnosis S/P CABG (coronary artery bypass graft)- Primary Postsurgical aortocoronary bypass status Ischemic cardiomyopathy Other specified forms of chronic ischemic heart disease Primary hypertension Unspecified essential hypertension Type 2 diabetes mellitus with other circulatory complication, without long-term current use of insulin Chronic systolic heart failure Severe obesity (BMI 35.0-39.9) with comorbidity Stage 3a chronic kidney disease documented in this encounter Care Teams Snow Maker Relationship Specialty Start Date End Date Aba Espinoza MD [facility] [address] [facility] [address] [place] [address] PCP - General Family Medicine 02/17/18 documented as of this encounter
--- OUTSIDE RECORDS SUMMARY | 2024-01-18 14:48 | XMS_ITS | Encounter Summary ---
Author Organization [facility] Address [address] [place] [address] Care Team Providers Care Project Internship Name Role Phone Aba Espinoza MD Primary Care Provider + [phone] Reason for Referral * Durable Medical Equipment (Routine) - Closed Specialty Diagnoses / Procedures Referred By Kadie casillas Referred To Contact Diagnoses IVY (obstructive sleep apnea) Procedures PAP Therapy Rosalino Tom APRN [address] [place] [address] Phone: tel: fax: [address] [place] [address] Phone: tel: fax: Referral ID Status Reason Start Date Expiration Date Visits Re quested Visits Authorized [id number] Closed 03/04/2023 03/03/2024 1 1 Encounter Details Date Type Department Care Team (Late st Contact Info) Description 03/04/2023 2:30 PM EST Telemedicine [facility] SLEEP [facility] [address] [facility] [address] [place] [id number] Rosalino Tom APRN [address] [place], [place] [id number] IVY (obstructive sleep apnea) (Primary Dx); Restless legs syndrome (RLS); Obesity, Class I, BMI 30-34.9 Social History Tobacco Use Types Packs/Day Years [...] Sign Reading Time Taken Comments Blood Pressure - - Pulse - - Temperature - - Respiratory Rate - - Oxygen Saturation - - Inhaled Oxygen Concentration - - Weight 122 kg (270 lb) 03/04/2023 1:00 PM EST Height 190.5 cm (6' 3 ) 03/04/2023 1:00 PM EST Body Mass Index 33.75 03/04/2023 1:00 PM EST documented in this encounter Patient Instructions * Patient Instructions* Rosalino Tom APRN - 03/04/2023 2:30 PM EST Images from the original note were not included. Screening for Sleep Apnea Sleep apnea is a condition in which breathing pauses or becomes shallow during sleep. Sleep apnea screening is a test to determine if you are at risk for sleep apnea. The test is easy and only takes a few minutes. Your health care provider may ask you to have this test in preparation for surgery oras part of a physical exam. What are the symptoms of sleep apnea? Common symptoms of sleep apnea include: Snoring. Restless sleep. Daytime sleepiness. Pauses in breathing. Choking during sleep. Irritability. Forgetfulness. Trouble thinking clearly. Depression. Personality changes. Most people with sleep apnea are not aware that they have it. Why should I get screened? Getting screened for sleep apnea can help: Ensure your safety. It is important for your health care providers to know whether or not you have sleep apnea, especially if you are having surgery or have other long-term (chronic) health conditions. Improve your health and allow you to get a better night's rest. Restful sleep can help you: Have more energy. Lose weight. Improve high blood pressure. Improve diabetes management. Prevent stroke. Prevent car accidents. How is screening done? Screening usually includes being asked a list of questions about your sleep quality. Some questionsyou may be asked include: Do you snore? Is your sleep restless? Do you have daytime sleepiness? Has a partner or spouse told you that you stop breathing during sleep? Have you had trouble concentrating or memory loss? If your screening test is positive, you are at risk for the condition. Further testing may be needed to confirm a diagnosis of sleep apnea. Where to find more information You can find screening tools online or at your health care clinic. For more information about sleepapnea screening and healthy sleep, visit these websites: Centers for Disease Control and Prevention: www.cdc.gov/sleep/index.html [place] [employer]: www.sleepapnea.org Contact a health care provider if: You think that you may have sleep apnea. Summary Sleep apnea screening can help determine if you are at risk for sleep apnea. It is important for your health care providers to know whether or not you have sleep apnea, especially if you are having surgery or have other chronic health conditions. You may be asked to take a screening test for sleep apnea in preparation for surgery or as part of a physical exam. This information is not intended to replace advice given to you by your health care provider. Make sure you discuss any questions you have with your health care provider. Document Revised: 11/17/2018 Document Reviewed: 05/13/2017 [employer] Patient Education ?? 2020 [employer] documented in this encounter Progress Notes * Rosalino Tom APRN - 03/04/2023 2:30 PM EST Sleep Clinic Video Visit Follow Up Note The patient is located in [facility]. The patient presents today for telehealth service. This service was conducted via audio/video technology through a secure [facility] video visit connection through [employer]. This provider is located in [facility]. Patient stated they are in a secure environment for the session. Patient's condition being diagnosed/treated is appropriate for telemedicine. The provider identified himself as well as his credentials. The patient, and/or patient's guardian, consent to be seen remotely, and when consent is given they understanding that the consent allows for patient identifiable information to be sent to a third-democrat as needed. They may refuse to be seen remotely at any time. The electronic data is encrypted and password protected, and the patient and/or guardian has been advised of the potential risk to privacy not withstanding such measures. Patient identifiers used: Name and date of . You have chosen to receive care through a telehealth visit. Do you consent to use a video connection for your medical care today? Yes Chief Complaint Follow-up and compliance of PAP therapy Subjective History of Present Illness (from previous encounter on 05/01/2021 with Ms. Lai): Dane Ray is a 70 y.o. male here for follow-up of sleep apnea. Patient has a history of CAD,CHF, hypertension, l lipidemia, obesity, uncontrolled diabetes with neuropathy, ED and sleep apnea.Patient was seen 01/06/2021 in consult for restless sleep, snoring x20 years, apneas x20 years, nonrestorative sleep and multiple leg kicking throughout the night that would awaken him. He did have atest years ago at [facility] that did show moderate obstructive sleep apnea and he did not initiate CPAP therapy. Patient did do so after his consult with us. Patient states he feels he is doing very well with CPAP. He sleeps 6 to 8 hours nightly and definitely feels more rested. He will goto sleep within 5 to 10 minutes and will get up 1-2 times in the night to use the restroom. Patienthas an Mazon score of /24. Patient is having no concerns or complaints regarding CPAP use and does wish to continue therapy. (End copied text) Interval History: Dane Ray is a 72 y.o. male returns for follow up and compliance of PAP therapy. The patientwas last seen on 05/01/2021 with Joelle. Overall the patient feels good with regard to therapy. The device appears to be working appropriately. On average the patient sleeps 8 hours per night. Thepatient wake 1-2 times per night. He feels well with use of the device. The patient reports the following changes to their medical and medication history since they were last seen: CABG X5 (12/05) Further details are as follows: Mazon Scale is: 24 Weight: Current Weight: 270 lb The patient's relevant past medical, surgical, family, and social history reviewed and updated in [facility] as appropriate. PMH: Past Medical History: Diagnosis Date Abnormal ECG Anxiety Arthritis Asthma Cardiomyopathy CHF (congestive heart failure) Chronic kidney disease 10/2020 Congenital heart disease COPD (chronic obstructive pulmonary disease) 2020 Coronary artery disease Diabetes mellitus Hyperlipidemia Hypertension Myocardial infarction Sleep apnea 10/2020 Past Surgical History: Procedure Laterality Date CARDIAC CATHETERIZATION Bilateral 07/05/2016 Procedure: Right and Left Heart Cath; Surgeon: Steve Valentino MD; Location: [facility]; Service: CARDIAC DEFIBRILLATOR PLACEMENT Left 02/2017 also PPM CARDIAC SURGERY COLONOSCOPY N/A 07/18/2017 Procedure: COLONOSCOPY; Surgeon: Liban Pierce MD; Location: [facility]; Service: Gastroenterology COLONOSCOPY N/A 05/04/2021 Procedure: COLONOSCOPY; Surgeon: Liban Pierce MD; Location: [facility]; Service: General; Laterality: N/A; CORONARY ARTERY BYPASS GRAFT WISDOM TOOTH EXTRACTION Allergies Allergen Reactions Epinephrine Other (See Comments) Contraindicated related to pt's EF=25% MEDS: Prior to Admission medications Medication Sig Start Date End Date Taking? Authorizing Provider acetaminophen (TYLENOL) 325 MG tablet Take 2 tablets by mouth 2 (Two) Times a Day. Provider, Historical, MD allopurinol (ZYLOPRIM) 100 MG tablet 1 tablet Daily. 10/13/20 Rocael Alva MD aspirin 81 MG chewable tablet Chew 1 tablet Daily. 07/07/16 Karan Carter PA BD Pen Needle Dori 2nd Gen 32G X 4 MM misc 12/26/20 Rocael Alva MD carvedilol (COREG) 3.125 MG tablet Take 1 tablet by mouth 2 (Two) Times a Day With Meals. Patient taking differently: Take 1 tablet by mouth 2 (Two) Times a Day With Meals. Takes 6.25 in evening 12/30/16 Ky Morataya MD empagliflozin (JARDIANCE) 25 MG tablet tablet Take by mouth Daily. Rocael Alva MD Entresto 24-26 MG tablet TAKE ONE TABLET BY MOUTH TWICE A DAY 05/07/21 Ky Morataya MD escitalopram (LEXAPRO) 20 MG tablet Take 20 mg by mouth Daily. Rocael Alva MD glipiZIDE (GLUCOTROL) 5 MG tablet Take 5 mg by mouth Daily. Rocael Alva MD Insulin Glargine (BASAGLAR KWIKPEN SC) Inject 10 Units under the skin into the appropriate area as directed Every Evening. Rocael Alva MD magnesium oxide (MAG-OX) 400 MG tablet Take 400 mg by mouth 2 (Two) Times a Day. Rocael Alva MD metFORMIN (GLUCOPHAGE) 1000 MG tablet Take 1,000 mg by mouth 2 (Two) Times a Day With Meals. Rocael Alva MD nitroglycerin (NITROLINGUAL) 0.4 MG/SPRAY spray PLACE 1 SPRAY UNDER THE TONGUE EVERY 5 MINUTES NEEDED FOR CHEST PAIN. 04/05/19 Ky Morataya MD rOPINIRole (REQUIP) 0.5 MG tablet Take 1 tablet by mouth Every Night. Take 1 hour before bedtime. 04/08/22 Liz Lai APRN simvastatin (ZOCOR) 40 MG tablet Take 40 mg by mouth Every Night. Rocael Alva MD spironolactone (ALDACTONE) 25 MG tablet Take 1 tablet by mouth Daily. 07/07/16 Karan Carter PA torsemide (DEMADEX) 10 MG tablet 1 tablet 3 (Three) Times a Week. Mon, wed, and fri 11/19/21 Provider, MD Rocael FH: Family History Problem Relation Age of Onset Heart disease Mother Hypertension Mother Stroke Mother Heart attack Mother Heart failure Mother Heart disease Father Hypertension Father Diabetes Father Objective Vital Signs: Ht 190.5 cm (75 ) Wt 122 kg (270 lb) BMI 33.75 kg/m?? Physical Exam Constitutional: Appearance: Normal appearance. Neurological: Mental Status: He is alert and oriented to person, place, and time. Psychiatric: Mood and Affect: Mood normal. Behavior: Behavior normal. Thought Content: Thought content normal. Judgment: Judgment normal. Result Review : PAP Report: AHI: 1.8/H Days of Usage: (97%) 95th Percentile Pressure: 10.4 cm H2O 95th percentile leaks: 89.1 L/min Number of Days Greater than 4 hours: 97% Settings: Auto CPAP-8/18 cm H2O, EPR ramp only, EPR level 1, response soft. Assessment and Plan Dane Ray is a 72 y.o. male who returns for follow-up and compliance of PAP therapy. The papreport has been reviewed. Overall usage and compliance are excellent at 97%. Patient averages 8 hours 34 minutes of therapy. Sleep apnea is well-controlled with an AHI of 1.8/H. I note a large leak at 99.1 L/min. The patient may benefit from mask fitting/change with [employer]. I will refill the patient's supplies, and they will return for follow-up and compliance in 1 year or sooner should theyhave further questions or concerns. Diagnoses and all orders for this visit: 1. IVY (obstructive sleep apnea) (Primary) - PAP Therapy 2. Restless legs syndrome (RLS) 3. Obesity, Class I, BMI 30-34.9 The patient continues to use and benefit from PAP therapy. 1. The patient was counseled regarding multimodal approach with healthy nutrition, healthy sleep, regular physical activity, social activities, counseling, and medications. Encouraged to practice lateral sleep position. Avoid alcohol and sedatives close to bedtime. 2. We will refill supplies x1 year. Return to clinic 1 year or sooner if symptoms warrant. Patient gave verbal consent today for video visit. I have reviewed the results of my evaluation and impression and discussed my recommendations in detail with the patient. Follow Up Return in about 1 year (around 03/04/2024) for Annual visit. Patient was given instructions and counseling regarding his condition or for health maintenance advice. Please see specific information pulled into the AVS if appropriate. Rosalino Tom APRN, ACNP- Pulmonology, Critical Care, and Sleep Medicine documented in this encounter Plan of Treatment Upcoming Encounters Date Type Department Care Team (Late st Contact Info) Description 03/02/2024 2:45 PM EST Telemedicine [facility] SLEEP [facility] [address] [facility] [address] [address] [place] [phone] Rosalino Tom APRN [address] [id number] documented as of this encounter Visit Diagnoses Diagnosis IVY (obstructive sleep apnea)- Primary Obstructive sleep apnea (adult) (pediatric) Restless legs syndrome (RLS) Obesity, Class I, BMI 30-34.9 documented in this encounter Care Teams Project Internship Relationship Specialty Start Date End Date Aba Espinoza MD [address] [facility] [address] [facility] [address] [place] [address] PCP - General Family Medicine 02/17/18 documented as of this encounter
--- OUTSIDE RECORDS SUMMARY | 2024-01-18 14:48 | XMS_ITS ---
Author Organization [facility] Address [address] [facility] [address] [place] [id number] Care Team Providers Care Ceramic Coater Name Role Phone Mirta Quan Primary Care Provider ALLERGIES No Known Allergies RESULTS Component Value Reference Range Notes Glycohemoglobin A1c (in hous e) Reviewed date:01/06/2024 10:28:42 AM Interpretation:8.0% Performing Lab: Notes/Report: 8.0% glycohemoglobin 8.0% 5 - 6.5 % P-Comprehensive Metabolic Pa clotilde (CMP) Reviewed date:01/10/2024 03:44:57 PM Interpretation:gluc 127, bun 31, Cr 1.54, gfr 48 Performing Lab: Notes/Report: Test performed by [facility] [address] [place] [address] , [address], [place] [address] Fili Feng MD, Fancy Packer CLIA: [id number] Sodium 138 135-145 mmol/L Potassium 4.5 3.5-5.3 mmol/L Chloride 102 97-108 mmol/L CO2 25 22-32 mmol/L Glucose 127 65-99 mg/dL BUN 31 8-23 mg/dL Creatinine 1.54 0.70-1.30 mg/dL Calcium 9.8 8.6-10.4 mg/dL eGFR by Creatinine 48 >59 mL/min/1.73m2 Protein 7.2 6.0-8.3 g/dL Albumin 4.6 3.5-5.3 g/dL Alkaline Phosphatase 49 40-129 IU/L ALT (SGPT) 21 <5-55 IU/L AST (SGOT) 18 <5-46 IU/L Bilirubin, Total 0.3 <0.2-1.2 mg/dL A/G Ratio 1.8 1.1-2.5 P-CPK Reviewed date:01/10/2024 03:44:57 PM Interpretation:Normal Performing Lab: Notes/Report: Test performed by [facility] [address] [place] [address] , [place] [address] Fili Feng MD, Fancy Packer CLIA: [id number] Creatine Kinase 196 20-200 U/L P-Lipid Panel Reviewed date:01/10/2024 03:44:57 PM Interpretation:chol 217, trigs 379, hdl 38, chol/hdl 5.71, non-hdl 179 Performing Lab: Notes/Report: Test performed by [facility] [address] [place] [address] , [address], [place] [address] Fili Feng MD, Fancy Packer CLIA: [id number] Cholesterol 217 <200 mg/dL Triglycerides 379 <150 mg/dL HDL Cholesterol 38 >39 mg/dL Cholesterol / HDL Ratio 5.71 0.00-4.99 Ratio Non-HDL Cholesterol 179 <130 mg/dL LDL Cholesterol (Calculation) 103 <130 mg/dL LDL Cholesterol Levels* Less than 100 mg/dL Optimal 100 to 129 mg/dL Near Optimal/ Above Optimal 130 to 159 mg/dL Borderline High 160 to 189 mg/dL High 190 mg/dL and above Very High * Categories as recommended by the 2004 ATPIII guidelines LDL/HDL Ratio 2.7 <3.3 Ratio LDL Cholesterol Patient History Test Date: 01/06/2024 LDL Results: 103 Units: mg/dL % Change: - REASON FOR VISIT Check Up, Needs labs with PSA, low dose chest CT, AAA screening, diabetic eye exam, & flu vaccine MEDICATIONS Medication SIG (Take, Route, Frequency, Duration) Notes Start Date End Date Status Torsemide 10 MG 1 tablet orally once a prn Active Nitroglycerin 0.4 MG/SPRAY 1 spray(s) sublingually every 5 minutes Active Magnesium Oxide 400 MG 1 tab(s) orally 2 times a day Active Entresto 24-26 MG 1 tab(s) Orally 2 ti mes a day Active Basaglar KwikPen 100 UNIT/ML 24 units qd subcutaneously once daily Active rOPINIRole HCl 0.5 MG 1 tablet 1 to 3 ho urs before bedtime Orally at bedtime Active Allopurinol 100 MG 1 tablet Orally Once a day for 90 days Active Aspirin 81 MG 1 tab(s) orally once a day Active Ozempic (0.25 or 0.5 MG/DOSE) 2 MG/3ML 0.5 Subcutaneous once a week Active Nexletol 180 MG 1 tablet Orally Once a day for 30 day(s) Active Rosuvastatin Calcium 40 MG 1 tablet Orally Once a day Active Spironolactone 25 MG 1 tab(s) orally onc e a day Active Escitalopram Oxalate 20 MG TAKE 1 TABLET BY MOUTH EVERY DAY FOR 90 DAYS for 90 days Not-Taking Carvedilol 25 MG 1 tab(s) Orally 2 ti mes a day Active glipiZIDE 5 MG 3 tab(s) orally once a day Active Jardiance 25 MG 1 tab(s) orally once a day (in the morning) Active SOCIAL HISTORY Tobacco Use: Social History Observation Description Date Smoking Status WARNING: Information temporarily unavailable Sex Assigned At : Social History Observation Description Sex Assigned At Unknown CURRENT TOBACCO USE: Question Answer Notes Are you a: Stopped 08/14/2016 PROBLEMS Problem Type ICD Code Onset Dates Problem Status W/U Status Risk SNOMED Code Notes Problem Hyperlipidemia, unspecified hyperlipidemia type (E78.5) Active confirmed [id number] VITAL SIGNS Weight 275.0 lbs 01/05/2024 Blood pressure systolic 120 mm Hg 01/05/20 24 Blood pressure diastolic 70 mm Hg 024 Heart Rate 71 /min 01/05/2024 Height 75 in 01/05/2024 BMI 34.37 kg/m2 01/05/2024 Encounters Encounter Location Date Provider Diagnosis [facility] [address] [place] [id number] 01/05/2024 Mirta Quan Type 2 diabetes rosetta itus without complication, without long-term current use of insulin E11.9 ; Systolic CHF, chronic I50.22 ; Type 2 diabetes with complication E11.8 ; Peripheral polyneuropathy G62.9 ; Adverse reaction to statin medication T46.6X5A and Hyperlipidemia, unspecified hyperlipidemia type E78.5 ASSESSMENTS Encounter Date Diagnosis Assessment Notes Treatment Notes Treatment Clinical Notes 01/05/2024 Type 2 diabetes mellitus without complication, without long-term current use of insulin (ICD-10 - E11.9) 01/05/2024 Systolic CHF, chroni c (ICD-10 - I50.22) 01/05/2024 Type 2 diabetes with complication (ICD-10 - E11.8) 01/05/2024 Peripheral polyneuropathy (ICD-10 - G62.9) 01/05/2024 Adverse reaction to statin medication (ICD-10 - T46.6X5A) 01/05/2024 Hyperlipidemia, unspecified hyperlipidemia type (ICD-10 - E78.5) PLAN OF TREATMENT Next Appt Details Follow Up: 2 Months, Reason: Provider Name:Mirta Zarate er, 03/05/2024 01:15:00 PM, [address], [address], [place], [phone], Progress Notes * Examination Category Sub-Category Detail Notes General Examination HEENT: unremarkable Heart: RSR, S4 Lungs: clear to auscultatio n Abdomen: soft and nontender Extremities: trace leg edema General Appearance: NAD Skin: normal, no rash Neurologic Exam: Intact, gait improve d Neck: supple, no lymphaden opathy Oral cavity: no lesions, mucosa m oist and WNL, no erythema Peripheral pulses: normal Chest: normal shape and exp ansion History and Physical Notes * HPI (History of Present Illness) Category Sub-Category Detail Notes Knee/Osborne knee pain has appt for Ort hopedic surgery for possible knee replacement. Dr. Ky Pardo. Was in therapy at [place], referred from [facility]. Self referred to [facility].
--- OUTSIDE RECORDS SUMMARY | 2024-01-18 14:48 | XMS_ITS | Patient Health Record ---
Author Organization Formerly [facility] Address [address] [facility] [address] [place] [id number] Care Team Providers Care Child Care Giver Name Role Phone Mirta Quan Primary Care Provider [phone] Aba Espinoza Unavailable [phone] DeshawnMariah mooney Unavailable [phone] ALLERGIES No Known Allergies RESULTS Component Value Reference Range Notes Glycohemoglobin A1c (in hous e) Reviewed date:01/06/2024 10:28:42 AM Interpretation:8.0% Performing Lab: Notes/Report: 8.0% glycohemoglobin 8.0% 5 - 6.5 % P-Comprehensive Metabolic Pa clotilde (CMP) Reviewed date:01/10/2024 03:44:57 PM Interpretation:gluc 127, bun 31, Cr 1.54, gfr 48 Performing Lab: Notes/Report: Test performed by [facility], [employer] [facility] , [address], [place] [address] Fili Feng MD, Valet Parking Attendant CLIA: [id number] Sodium 138 135-145 mmol/L Potassium 4.5 3.5-5.3 [...] Interpretation:Normal Performing Lab: Notes/Report: Test performed by [facility] [address] [place] [address] , [place] [address] Fili Feng MD, Valet Parking Attendant CLIA: [id number] Creatine Kinase 196 20-200 U/L P-Lipid Panel Reviewed date:01/10/2024 03:44:57 PM Interpretation:chol 217, trigs 379, hdl 38, chol/hdl 5.71, non-hdl 179 Performing Lab: Notes/Report: Test performed by [facility] [address] [place] [address] , [place] [address] Fili Feng MD, Valet Parking Attendant CLIA: [id number] Cholesterol 217 <200 mg/dL Triglycerides 379 <150 [...] Results: 103 Units: mg/dL % Change: - X ray : Spine, lumbosacral Reviewed date:07/04/2023 10:26:52 AM Interpretation:moderate and severe degenerative changes Performing Lab: Notes/Report: moderate and severe degenerative changes P-Microalbumin/Creatinine, R andom Urine Sample Reviewed date:07/04/2023 10:26:52 AM Interpretation:a/c 37 Performing Lab: Notes/Report: Test performed by [facility] , [place] [address] Fili Feng MD, Valet Parking Attendant CLIA: [id number] Albumin/Creatinine Ratio, Urine 37 0-30 ug/m g Microalbumin, Urine, Random 4.2 Creatinine, Urine 112.1 P-Comprehensive Metabolic Pa clotilde (CMP) Reviewed date:07/04/2023 10:26:52 AM Interpretation:gluc 109, bun 44, Cr 1.88, gfr 38 Performing Lab: Notes/Report: Test performed by [facility] , [place] [address] Fili Feng MD, Valet Parking Attendant CLIA: [id number] Sodium 135 135-145 mEq/L Potassium 4.9 3.5-5.3 mEq/L Chloride 100 97-108 mEq/L CO2 24 22-32 mEq/L Glucose 109 65-99 mg/dL BUN 44 8-23 mg/dL Creatinine 1.88 0.70-1.30 mg/dL Calcium 9.4 8.6-10.4 mg/dL eGFR by Creatinine 38 >59 mL/min/1.73m2 Protein 7.2 6.0-8.3 g/dL Albumin 4.5 3.5-5.3 g/dL Alkaline Phosphatase 51 40-129 IU/L ALT (SGPT) 22 <5-55 IU/L AST (SGOT) 20 <5-46 IU/L Bilirubin, Total 0.3 <0.2-1.2 mg/dL A/G Ratio 1.7 1.1-2.5 mg/dL REASON FOR REFERRAL No Information MEDICATIONS Medication SIG (Take, Route, Frequency, Duration) Notes Start Date End Date Status Zithromax Z-Da 250 MG 2 pills first day then one daily for 4 days orally as directed for 5 days 01/18/2024 Active Nitroglycerin 0.4 MG/SPRAY 1 spray(s) sublingually every 5 minutes Active Albuterol Sulfate HFA 108 (90 Base) MCG/ACT 1 puff as needed Inhalation every 4 hrs, prn 01/18/2024 Active Torsemide 10 MG 1 tablet orally once a prn Active Escitalopram Oxalate 20 MG TAKE 1 TABLET BY MOUTH EVERY DAY FOR 90 DAYS for 90 days Not-Taking Magnesium Oxide 400 MG 1 tab(s) orally 2 times a day Active rOPINIRole HCl 0.5 MG 1 tablet 1 to 3 ho urs before bedtime Orally at bedtime Active Rosuvastatin Calcium 40 MG 1 tablet Orally Once a day Active Aspirin 81 MG 1 tab(s) orally once a day Active Allopurinol 100 MG 1 tablet Orally Once a day for 90 days Active Nexletol 180 MG 1 tablet Orally Once a day for 30 day(s) Active glipiZIDE 5 MG 3 tab(s) orally once a day Active Ozempic (0.25 or 0.5 MG/DOSE) 2 MG/3ML 0.5 Subcutaneous once a week Active Spironolactone 25 MG 1 tab(s) orally onc e a day Active Jardiance 25 MG 1 tab(s) orally once a day (in the morning) Active Carvedilol 25 MG 1 tab(s) Orally 2 ti mes a day Active Basaglar KwikPen 100 UNIT/ML 24 units qd subcutaneously once daily Active Entresto 24-26 MG 1 tab(s) Orally 2 ti mes a day Active IMMUNIZATIONS Vaccine Route Administration Date Status Comme nts COVID 19 Moderna Unknown 02/20/2020 Administered COVID 19 Moderna Unknown 03/18/2020 Administered COVID 19 Moderna Unknown 03/18/2020 Administered COVID 19 Pfizer Unknown 12/30/2020 Administered COVID 19 Pfizer Unknown 12/30/2020 Administered Fluzone High Dose (65yr and older) IM Intramuscular 12/31/2020 Administered Fluzone High Dose (65yr and older) IM Intramuscular 10/12/2021 Administered Fluzone High Dose (65yr and older) IM Intramuscular 02/04/2022 Administered Fluzone High Dose (65yr and older) IM Intramuscular 11/01/2022 Administered Hepatitis A (adult) Unknown 03/10/2018 Administered Prevnar (PCV13) IM Intramuscular 01/24/2020 Administered Prevnar (PCV20) IM Intramuscular 02/04/2022 Administered Shingrix Unknown 02/07/2020 Administered Shingrix Unknown 04/15/2020 Administered Tetanus Tdap-Adacel (over 7yrs) Unknown 02/07/2020 Administered Varivax Unknown 02/06/2020 Administered Varivax Unknown 02/06/2020 Administered SOCIAL HISTORY Tobacco Use: Social History Observation Description Date Smoking Status WARNING: Information temporarily unavailable Sex Assigned At : Social History Observation Description Sex Assigned At Unknown CURRENT TOBACCO USE: Question Answer Notes Are you a: Stopped 08/14/2016 PROBLEMS Problem Type ICD Code Onset Dates Problem Status W/U Status Risk SNOMED Code Notes Problem Cardiomegaly (I51.7) Active confirmed 3755858 Problem Mixed hyperlipidemia (E78.2) Active confirmed 504195949 Problem Ischemic cardiomyopathy (I25.5) Active confirmed 191188770 Problem Peripheral polyneuropathy (G62.9) Active confirmed 24893764 Problem Hyperlipidemia, unspecified hyperlipidemia type (E78.5) Active confirmed 79678933 Problem Congestive heart failure, unspecified congestive heart failure chronicity, unspecified congestive heart failure type (I50.9) Active confirmed 86733245 Problem Type 2 diabetes mellitus without complication, without long-term current use of insulin (E11.9) Active confirmed Type 2 diabe jono mellitus without complication (253410739) Problem Gout involving toe of right foot, unspecified cause, unspecified chronicity (M10.9) Active confirmed 441295807 Problem Non-traumatic rhabdomyolysis (M62.82) Active confirmed 856135221 Problem Benign prostatic hyperplasia without lower urinary tract symptoms (N40.0) Active confirmed 399517399 Problem 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) Active confirmed 33664486 Problem Stage 3a chronic kidney disease (N18.31) Active confirmed 795735071 Problem Adverse reaction to statin medication (T46.6X5A) Active confirmed 659106136 Problem 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) Active confirmed 403359595 Problem Systolic CHF, chronic (I50.22) Active confirmed 750682865 Problem Type 2 diabetes with complication (E11.8) Active confirmed 57638492 VITAL SIGNS Heart Rate 73 /min 01/18/2024 Blood pressure diastolic 66 mm Hg 01/18/2024 Height 75 in 01/18/2024 Blood pressure systolic 118 mm Hg 01/18/2024 Weight 270.2 lbs 01/18/2024 BMI 33.77 kg/m2 01/18/2024 Encounters Encounter Location Date Provider Diagnosis [facility] [address] [facility] [address] [place], [place] [id number] 02/10/2023 Mirta Quan Adverse reaction to statin medication T46.6X5A ; Mixed hyperlipidemia E78.2 ; S/P CABG x 5 Z95.1 and Ischemic cardiomyopathy I25.5 [facility] 12[address] [facility] [address] [place], [place] [id number] 02/22/2023 Mirta Quan [facility] [address] [place] [facility] [address] [place], [place] [id number] 04/14/2023 Mirta Quan Peripheral polyneuropathy G62.9 ; Type 2 diabetes with complication E11.8 ; S/P CABG x 5 Z95.1 ; Stage 3a chronic kidney disease N18.31 and Ischemic cardiomyopathy I25.5 [facility] [address] [place] [facility] [address] [place], [place] [id number] 05/09/2023 Mirta Quan Depression 311 [facility] [address] [place] [facility] [address] [place], [place] [id number] 05/09/2023 Mirta Quan [facility] [address] [place] [facility] [address] [place], [place] [id number] 06/30/2023 Mirta Quan Type 2 diabetes rosetta itus without complication, without long-term current use of insulin E11.9 ; Ischemic cardiomyopathy I25.5 ; Peripheral polyneuropathy G62.9 ; S/P CABG x 5 Z95.1 ; Systolic CHF, chronic I50.22 ; Screening for AAA (abdominal aortic aneurysm) Z13.6 and History of tobacco use Z87.891 [facility] [address] [place] [facility] [address] [place], [place] [id number] 07/04/2023 Mirta Quan [facility] [facility] [address] [place], [place] [id number] 07/25/2023 [facility] [address] [place], [place] [id number] 10/14/2023 Aba Espinoza [facility] [address] [place], [place] [id number] 12/23/2023 Mir[facility] [address] [place], [place] [id number] 01/05/2024 Mirta Quan Type 2 diabetes rosetta itus without complication, without long-term current use of insulin E11.9 ; Systolic CHF, chronic I50.22 ; Type 2 diabetes with complication E11.8 ; Peripheral polyneuropathy G62.9 ; Adverse reaction to statin medication T46.6X5A and Hyperlipidemia, unspecified hyperlipidemia type E78.5 [facility] [address] [place], [place] [id number] 01/10/2024 Mir[facility] Qu[facility] [address] [place], [place] [id number] 01/18/2024 Mariah Crowdy Chest wall pain R07. 89 ; Pain, joint, shoulder, right M25.511 ; Acute midline thoracic back pain M54.6 ; Wheezing R06.2 and Bilateral rales R09.89 ASSESSMENTS Encounter Date Diagnosis Assessment Notes Treatment Notes Treatment Clinical Notes 04/14/2023 Peripheral polyneuropathy (ICD-10 - G62.9) continue current therapy 04/14/2023 Type 2 diabetes with complication (ICD-10 - E11.8) 06/30/2023 Ischemic cardiomyopathy (ICD-10 - I25.5) 06/30/2023 Type 2 diabetes mellitus without complication, without long-term current use of insulin (ICD-10 - E11.9) 01/05/2024 Type 2 diabetes mellitus without complication, without long-term current use of insulin (ICD-10 - E11.9) 01/05/2024 Systolic CHF, chroni c (ICD-10 - I50.22) 01/18/2024 Chest wall pain (ICD-10 - R07.89) 01/18/2024 Pain, joint, shoulder, right (ICD-10 - M25.511) 05/09/2023 Depression (ICD-10 - 311) 02/10/2023 Mixed hyperlipidemia (ICD-10 - E78.2) 02/10/2023 Adverse reaction to statin medication (ICD-10 - T46.6X5A) Dr. Guero Villalta FAX [phone] 02/10/2023 S/P CABG x 5 (ICD-10 - Z95.1) 01/18/2024 Acute midline thoracic back pain (ICD-10 - M54.6) 01/05/2024 Type 2 diabetes with complication (ICD-10 - E11.8) 04/14/2023 S/P CABG x 5 (ICD-10 - Z95.1) 06/30/2023 Peripheral polyneuropathy (ICD-10 - G62.9) 04/14/2023 Stage 3a chronic kidney disease (ICD-10 - N18.31) 06/30/2023 S/P CABG x 5 (ICD-10 - Z95.1) 01/18/2024 Wheezing (ICD-10 - R06.2) 01/05/2024 Peripheral polyneuropathy (ICD-10 - G62.9) 02/10/2023 Ischemic cardiomyopathy (ICD-10 - I25.5) 01/18/2024 Bilateral rales (ICD-10 - R09.89) 01/05/2024 Adverse reaction to statin medication (ICD-10 - T46.6X5A) 06/30/2023 Systolic CHF, chroni c (ICD-10 - I50.22) 04/14/2023 Ischemic cardiomyopathy (ICD-10 - I25.5) 01/05/2024 Hyperlipidemia, unspecified hyperlipidemia type (ICD-10 - E78.5) 06/30/2023 Screening for AAA (abdominal aortic aneurysm) (ICD-10 - Z13.6) 06/30/2023 History of tobacco use (ICD-10 - Z87.891) PLAN OF TREATMENT Pending Test Test Name Order Date X ray : Shoulder, right 01/18/2024 X ray : Spine, thoracic spine 01/18/2024 CXR 01/18/2024 CBC Fingerstick (in house) 01/18/2024 Ultrasound : Aorta 06/30/2023 CT Scan : Chest, low dose 06/30/2023 COVID 19- Full Respiratory Panel with CO VID 01/18/2024 Next Appt Details Provider Name:Mirta Villaltafransisco er, 03/05/2024 01:15:00 PM, [address], [address], [place], [place], [id number], Insurance Providers Payer Name Payer Address Payer Phone Subscriber Number Group Number Insured Name Patient Relationship to Insured Coverage Start Date Coverage End Date MEDICARE PART B [address] [address] [place] [id number] [phone] [id number] AMANDA BAJWA Self - patient is the insured [email or web address] [address] [address] [place] [address] [id number] AMANDA BAJWA Self - patient is the insured MEDICAL (GENERAL) HISTORY Medical History History ICD Code Hypertension Type 2 Diabetes, [facility] Congestive Heart Failure, EF 15% in 2017 , [facility] Cardiac Defibrillator, 11/2016 EF 20-25% [facility] 06/16/2016 EF 15% at [facility] 12/15/2017 Gout 60 Year Smoking Hx, Quit 2017 CAD- [facility] Surgical History Surgery Date(Month/Year) Defibrillator Placement 12/2016 Colonoscopy 2018 Hospitalization History Reason Date(Month/Year)
--- OUTSIDE RECORDS SUMMARY | 2024-01-18 14:48 | XMS_ITS ---
Author Organization [facility] Address [address] [place] [phone] Phone Care Team Providers Care Pottery Decorator Name Role Phone Edvin VELAZQUEZ, [place] Cervantes Unavailable [phone] Plan of Treatment Future Appointments Date Time Location Provi stacey Physician Specified 01/23/2024 10:15AM [facility] [place] Pardo MD Last Documented On 8:45AM ; [facility], [facility] Assessments Includes: Assessments for all patient encounters No Assessments Recorded Medical Equipment - Implanted Devices Includes: Current and historical Devices No Medical Equipment Recorded Medications Administered Includes: Administered Medications in patient's chart No Administered Medications Recorded Results Includes: Results from 01/17/2023 through 01/18/2024 No Results Recorded For Specified Dates History of Present Illness History of Present Illness not supported for this document type No History of Present Illness Recorded Social History No Social History Recorded - Smoking Status Unknown Medical History Includes: Medical History in patient's chart No Medical History Recorded Family History Includes: Family History in patient's chart No Family History Recorded Review of Systems Review of Systems not supported for this document type No Review of Systems Recorded Mental Status No Mental Status Recorded Functional Status No Functional Status Recorded Physical Exam Physical Exam not supported for this document type No Physical Exam Recorded Insurance Includes: Active Insurance Policies Plan Name Member ID Group # Subscriber Relationship Effect anthony Dates 1 - Medicare Part B [facility] [id number] Dane Ray Self 2 - [employer] [id number] Dane Ray Self Clinical Notes Includes: Signed Clinical Notes starting from 01/28/2022 No Clinical Notes Recorded
--- OUTSIDE RECORDS SUMMARY | 2024-01-18 14:48 | XMS_ITS | Encounter Summary ---
Author Organization [facility] Address [address] [place] [address] Care Team Providers Care Casting Machine Service Operator Name Role Phone Aba Espinoza MD Primary Care Provider + [phone] Reason for Visit * Reason Comments Med Refill Encounter Details Date Type Department Care Team (Late st Contact Info) Description 04/12/2023 Refill [facility] SLEEP MEDICINE [address] [facility] [address] [place] [phone] Liz Lai, HAND COUNTER [address] [facility] [address] [place], [place] [id number] Restless legs syndrome (RLS) Social History Tobacco Use Types Packs/Day Years [...] Info) Description 03/02/2024 2:45 PM EST Telemedicine [facility]ICAL [facility] SLEEP MEDICINE [address] [facility] [address] [place] [phone] Rosalino Tom, HAND COUNTER [address] [place] [address] documented as of this encounter Visit Diagnoses Diagnosis Restless legs syndrome (RLS) documented in this encounter Care Teams Casting Machine Service Operator Relationship Specialty Start Date End Date Aba Espinoza MD [address] [facility] [address] [place] [address] PCP - General Family Medicine 02/17/18 documented as of this encounter
--- NOTE | 2024-01-18 14:49 | XR_ITS ---
FINAL REPORT CLINICAL HISTORY: PAIN, ATTN RT RIBS COMPARISON: None FINDINGS: Two views of the chest were obtained. A left subclavian ICD is present. The heart size and pulmonary vascularity are within normal limits. The patient is status post median sternotomy. Mild left base opacities favor atelectasis or scarring. Postoperative changes are noted in the right axilla. There are several chronic left lateral rib fractures. There is mild irregularity of the right fourth and fifth lateral ribs that are likely rib fractures. No pneumothorax is identified. IMPRESSION: Likely right fourth and fifth lateral rib fractures. Left base opacities favor atelectasis or scarring. Reviewed, Interpreted and Dictated by Pieter Sampson III, MD Transcribed by Claudia Wright Authenticated and [facility]
--- NOTE | 2024-01-18 14:49 | XR_ITS ---
FINAL REPORT CLINICAL HISTORY: .ACUTE BACK PAIN COMPARISON: None FINDINGS: Three views of the thoracic spine were obtained. There are right fourth, fifth, and sixth lateral rib fractures with mild adjacent pleural thickening. There are mild degenerative changes with osteophytes. IMPRESSION: Right fourth, fifth, and sixth lateral rib fractures with mild adjacent pleural thickening. Reviewed, Interpreted and Dictated by Pieter Sampson III, MD Transcribed by Claudia Wright Authenticated and [facility]
--- NOTE | 2024-01-18 14:49 | XR_ITS ---
FINAL REPORT CLINICAL HISTORY: RT SHOULD JOINT PAIN COMPARISON: None FINDINGS: RIGHT SHOULDER 3 views demonstrate no acute fracture or dislocation. There are mild acromioclavicular joint and mild glenohumeral joint degenerative changes. The visualized bony structures are well aligned. No soft tissue abnormality is seen. Postoperative changes are noted in the right axilla. IMPRESSION: Degenerative and postoperative changes without acute process. Reviewed, Interpreted and Dictated by Pieter Samspon III, MD Transcribed by Claudia Wright Authenticated and [facility] [place]
--- OUTSIDE RECORDS SUMMARY | 2024-01-18 14:49 | XMS_ITS | Encounter Summary ---
[facility] Organization [facility] Address [address] [place] [address] Care Team Providers Care Nurse Orthopedic Name Role Phone Aba Espinoza MD Primary Care Provider + [phone] Reason for Visit * Auth/Cert Specialty Diagnoses / Procedures Referred By Kadie casillas Referred To Contact Diagnoses Procedures MN COLONOSCOPY FLX DX W/COLLJ SPEC WHEN PFRMD COLONOSCOPY Referral ID Status Reason Start Date Expiration Date Visits Re quested Visits Authorized [id number] 1 1 Encounter Details Date Type Department Care Team (Late st Contact Info) Description 05/04/2021 10:00 AM EDT - 05/04/2021 10:59 AM EDT Surgery [facility] ENDO SUITES [address] [place] [address] Liban Pierce MD [address] [facility] [place] [address] COLONOSCOPY [55948 (CPT??)] Social History Tobacco Use Types Packs/Day Years [...] Sign Reading Time Taken Comments Blood Pressure 110/61 05/04/2021 10:50 AM EDT Pulse 64 05/04/2021 10:50 AM EDT Temperature 36.3 ??C (97.3 ??F) 05/04/2021 10:46 AM E DT Respiratory Rate 16 05/04/2021 9:11 AM EDT Oxygen Saturation 93% 05/04/2021 10:50 AM EDT Inhaled Oxygen Concentration - - Weight 117 kg (258 lb) 05/04/2021 9:11 AM EDT Height 190.5 cm (6' 3 ) 05/04/2021 9:11 AM EDT Body Mass Index 32.25 05/04/2021 9:11 AM EDT documented in this encounter Discharge Instructions * Attachments The following attachments cannot be sent through Care Everywhere. * Moderate Conscious Sedation Adult (Libyan) * Colonoscopy Adult Care After (Libyan) documented in this encounter Medications at Time of Discharge allopurinol (ZYLOPRIM) 100 MG tablet 1 tablet Daily. 10/13/2020 aspirin 81 MG chewable tablet Chew 1 tablet Daily. 30 tablet 07/07/2016 3:28 PM EDT 07/07/2016 BD Pen Needle Dori 2nd Gen 32G X 4 MM misc 12/26/2020 carvedilol (COREG) 3.125 MG tablet Take 1 tablet by mouth 2 (Two) Times a Day With Meals. 60 tablet 12/30/2016 empagliflozin (JARDIANCE) 25 MG tablet tablet Take by mouth Daily. escitalopram (LEXAPRO) 20 MG tablet Take 20 mg by mouth Daily. glipiZIDE (GLUCOTROL) 5 MG tablet Take 5 mg by mouth Daily. magnesium oxide (MAG-OX) 400 MG tablet Take 400 mg by mouth 2 (Two) Times a Day. metFORMIN (GLUCOPHAGE) 1000 MG tablet Take 1,000 mg by mouth 2 (Two) Times a Day With Meals. nitroglycerin (NITROLINGUAL) 0.4 MG/SPRAY spray PLACE 1 SPRAY UNDER THE TONGUE EVERY 5 MINUTES NEEDED FOR CHEST PAIN. 4.9 g 2 04/05/2019 simvastatin (ZOCOR) 40 MG tablet Take 40 mg by mouth Every Night. spironolactone (ALDACTONE) 25 MG tablet Take 1 tablet by mouth Daily. 30 tablet 12 07/07/2016 3:28 PM EDT 07/07/2016 naproxen sodium (ALEVE) 220 MG tablet Take 220 mg by mouth As Needed. 11/25/2021 rOPINIRole (REQUIP) 0.5 MG tabletIndications :Restless legs syndrome (RLS) TAKE ONE TABLET BY MOUTH ONCE NIGHTLY ONE HOUR BEFORE BEDTIME 30 tablet 11 03/25/2021 04/05/2022 sacubitril-valsar mistry (Entresto) 24-26 MG tablet Take 1 tablet by mouth 2 (Two) Times a Day. 180 tablet 3 04/16/2020 05/07/2021 documented as of this encounter H&P Notes * Liban Pierce MD - 05/04/2021 10:52 AM EDT Images from the original note were not included. Colon and Rectal [CSGA] Patient Care Team: Aba Espinoza MD as PCP - General (Family Medicine) Chief complaint: Colon screening with diarrhea Subjective HPI: 70-year-old male with chronic intermittent diarrhea. He has been done in the hospital because of his ejection fraction of 20%. Review of Systems: No chest pain or shortness of breath. Follows Dr. Morataya for ICM status post ICDand he is deemed not a cardiac candidate. Ejection fraction 15% ??5%. Sclerotic AV valve. 9 point review does not show any significant changes. History Past Medical History: Diagnosis Date ??? Abnormal ECG ??? Anxiety ??? Arthritis ??? Asthma ??? Cardiomyopathy (HCC) ??? CHF (congestive heart failure) (HCC) ??? Chronic kidney disease 10/2020 ??? Congenital heart disease ??? COPD (chronic obstructive pulmonary disease) (HCC) 2020 ??? Coronary artery disease ??? Diabetes mellitus (HCC) ??? Hyperlipidemia ??? Hypertension ??? Myocardial infarction (HCC) ??? Sleep apnea 10/2020 Past Surgical History: Procedure Laterality Date ??? CARDIAC CATHETERIZATION Bilateral 07/05/2016 Procedure: Right and Left Heart Cath; Surgeon: Steve Valentino MD; Location: [facility] CATH INVASIVE LOCATION; Service: ??? CARDIAC DEFIBRILLATOR PLACEMENT Left 02/2017 also PPM ??? COLONOSCOPY N/A 07/18/2017 Procedure: COLONOSCOPY; Surgeon: Liban Pierce MD; Location: [facility] ENDOSCOPY; Service: Gastroenterology ??? WISDOM TOOTH EXTRACTION Family History Problem Relation Age of Onset ??? Heart disease Mother ??? Hypertension Mother ??? Stroke Mother ??? Heart attack Mother ??? Heart failure Mother ??? Heart disease Father ??? Hypertension Father ??? Diabetes Father Social History Tobacco Use ??? Smoking status: Former Smoker Packs/day: 3.00 Years: 25.00 Pack years: 75.00 Types: Cigarettes Start date: 11/15/1978 Quit date: 07/29/2005 Years since quittin.7 ??? Smokeless tobacco: Never Used ??? Tobacco comment: stopped june 2016 Substance Use Topics ??? Alcohol use: Yes Alcohol/week: 12.0 standard drinks Types: 12 Cans of beer per week ??? Drug use: Yes Types: Marijuana Medications Prior to Admission Medication Sig Dispense Refill Last Dose ??? allopurinol (ZYLOPRIM) 100 MG tablet Daily. 05/03/2021 at Unknown time ??? aspirin 81 MG chewable tablet Chew 1 tablet Daily. 30 tablet 12 05/03/2021 at 0800 ??? BD Pen Needle Dori 2nd Gen 32G X 4 MM misc 05/03/2021 at Unknown time ??? carvedilol (COREG) 3.125 MG tablet Take 1 tablet by mouth 2 (Two) Times a Day With Meals. (Patient taking differently: Take 6.25 mg by mouth 2 (Two) Times a Day With Meals.) 60 tablet 0 05/03/2021t 0800 ??? empagliflozin (JARDIANCE) 25 MG tablet tablet Take by mouth Daily. Past Week at Unknown time ??? escitalopram (LEXAPRO) 20 MG tablet Take 20 mg by mouth Daily. 05/03/2021 at Unknown time ??? glipiZIDE (GLUCOTROL) 5 MG tablet Take 5 mg by mouth Daily. 05/03/2021 at Unknown time ??? magnesium oxide (MAG-OX) 400 MG tablet Take 400 mg by mouth 2 (Two) Times a Day. 05/03/2021 at Unknown time ??? metFORMIN (GLUCOPHAGE) 1000 MG tablet Take 1,000 mg by mouth 2 (Two) Times a Day With Meals. 05/03/2021 at Unknown time ??? naproxen sodium (ALEVE) 220 MG tablet Take 220 mg by mouth As Needed. Past Week at Unknown time ??? nitroglycerin (NITROLINGUAL) 0.4 MG/SPRAY spray PLACE 1 SPRAY UNDER THE TONGUE EVERY 5 MINUTES NEEDED FOR CHEST PAIN. 4.9 g 2 Past Month at Unknown time ??? rOPINIRole (REQUIP) 0.5 MG tablet TAKE ONE TABLET BY MOUTH ONCE NIGHTLY ONE HOUR BEFORE [id number] tablet 11 05/03/2021 at Unknown time ??? sacubitril-valsartan (Entresto) 24-26 MG tablet Take 1 tablet by mouth 2 (Two) Times a Day. 180tablet 3 05/03/2021 at Unknown time ??? simvastatin (ZOCOR) 40 MG tablet Take 40 mg by mouth Every Night. 05/03/2021 at Unknown time ??? spironolactone (ALDACTONE) 25 MG tablet Take 1 tablet by mouth Daily. (Patient taking differently: Take 25 mg by mouth Daily. Take 1/2 tablet in am.) 30 tablet 12 05/03/2021 at Unknown time Allergies: Patient has no known allergies. Objective Vital Signs Blood pressure 107/60, pulse 63, temperature 97.3 ??F (36.3 ??C), temperature source Temporal, resp. rate 16, height 190.5 cm (75 ), weight 117 kg (258 lb), SpO2 94 %. Physical Exam: Alert and oriented HEENT normal Neck supple Lungs clear Heart regular Abdomen soft and benign Extremities warm good pulses no edema Musculoskeletal neurologic grossly within normal limits Results Review: Lab Results (last 24 hours) Procedure Component Value Units Date/Time Potassium [[id number]] (Normal) Collected: 05/04/21921 Specimen: Blood Updated: 05/04/21958 Potassium 4.4 mmol/L POC Glucose Once [[id number]] (Abnormal) Collected: 05/04/21920 Specimen: Blood Updated: 05/04/21921 Glucose 162 mg/dL Comment: Meter: [id number] Steam Trap Worker: [id number] Erika Hill Imaging Results (Last 24 Hours) No results found for the last 24 hours. Assessment/Plan Impression screening colonoscopy with chronic intermittent diarrhea Recommendation: Colonoscopy with anesthesia supervision I discussed the patients findings and my recommendations with patient and family. Liban Pierce MD 05/04/21 10:52 EDT documented in this encounter OR Notes * Op Note - Liban Pierce MD - 05/04/2021 10:23 AM EDT Colon and Rectal [CSGA] COLONOSCOPY Procedure Note Dane Ray 05/04/2021 Pre-op Diagnosis: Screening colonoscopy Chronic intermittent diarrhea Post-op Diagnosis: Normal colon and ileum Procedure(s): Ileal COLONOSCOPY with biopsies Surgeon(s): Liban Pierce MD Underwriting Service Representative: Rachel Osullivan RN Endo Buffing Turner And Counter: Sherrie Jeronimo CNA was responsible for performing the following activities. social science research assistant and their skilled assistance was necessary for the success of this case. Anesthesia: Monitored Anesthesia Care Staff: Underwriting Service Representative: Rachel Osullivan RN Endo Buffing Turner And Counter: Sherrie Jeronimo CNA Estimated Blood Loss: Minimal Specimens: Order Name Source Comment Collection Info Order Time POTASSIUM For all patients with renal disease, within 3 days if taking digoxin, [id number], or diuretics. Collected By: Tiana Diana RN 05/03/2021 11:34 AM Release to patient Immediate POTASSIUM 05/04/2021 9:27 AM Release to patient Immediate TISSUE PATHOLOGY EXAM Small Intestine Collected By: Liban Pierce MD 05/04/2021 10:28 AM Release to patient Immediate Findings: Normal Technique: Patient was brought to the endoscopy suite put in left lateral position given fentanyl and Versed. External anal digital exam showed some minor irritation probably from the prep. What I could feel the prostate was normal. Retroflexion the scope in the rectum was normal. Scope was passed easily to the cecum showing a normal opening the appendix and small bowel. The terminal ileum was normal The colon was normal without diverticuli, inflammation or polyps. Random biopsies were taken throughout to look for microscopic colitis. Follow-up with pathology within 2 weeks Family spoken to. Complications: 0 Liban Pierce MD Date: 05/04/2021 Time: 10:48 EDT documented in this encounter Plan of Treatment Upcoming Encounters Date Type Department Care Team (Princess Contact Info) Description 03/02/2024 2:45 PM EST Telemedicine [facility] SLEEP MEDIC[facility] [address] [place] [address] Rosalino Tom, VESSEL CAPTAIN [address] [place] [address] documented as of this encounter Procedures Procedure Name Priority Date/Time Associated Diagnosis Comments TISSUE PATHOLOGY EXAM Routine 05/04/2021 10:28 AM EDT Diarrhea MN COLONOSCOPY FLX DX W/COLLJ SPEC WHEN PFRMD 05/04/2021 10:02 AM EDT POTASSIUM Routine 05/04/2021 9:22 AM EDT POCT GLUCOSE FINGERSTICK Routine 05/04/2021 9:21 AM EDT documented in this encounter Results * Tissue Pathology Exam (05/04/2021 10:28 AM EDT) Case Report Surgical Pathology Report ? Case: [id number] ? Authorizing Provider: ??Liban Pierce MD ? Collected: ? 05/04/2021 10:28 AM ? Ordering Location: ? [facility] ?? Received: ?05/04/2021 11:48 AM ? ENDO SUITES ? Pathologist: ? Ike Marie MD ? Specimens: ?? 1) - Small Intestine, ileum biopsy for path ? 2) - Large Intestine, Transverse Colon, right/transverse colon biopsy for path ? 3) - Large Intestine, Left / Descending Colon, left colon biopsy for path ? 05/05/2021 9:18 AM [facility] Clinical Information Diarrhea 05/05/2021 9:18 AM [facility] Final Diagnosis ILEUM, BIOPSY: Small bowel mucosa with no significant pathologic change. 2. TRANSVERSE COLON, BIOPSIES: Colonic mucosa with no significant pathologic change. 3. DESCENDING COLON, BIOPSIES: Colonic mucosa with no significant pathologic change. GJK 05/05/2021 9:18 AM [facility] Gross Description 1. Small Intestine. Received in formalin labeled ileum biopsy is a 0.3 x 0.3 x 0.3 cm mistry soft tissue fragment submitted entirely in a single cassette. 2. Large Intestine, Transverse Colon. Received in formalin labeled right/transverse colon biopsy are multiple mistry soft tissue fragments aggregating 1 x 1 x 0.3 cm submitted entirely in a single cassette. 3. Large Intestine, Left / Descending Colon. Received in formalin labeled left colon biopsy are multiple mistry soft tissue fragments aggregating 1 x 1 x 0.2 cm submitted entirely in a single cassette. 05/05/2021 9:18 AM [facility] Microscopic Description The slides are reviewed and demonstrate histopathologic features supporting the above rendered diagnosis. 05/05/2021 9:18 AM EDT [facility] Tissue Structure of small intestine / Unknown 05/04/2021 10:28 AM EDT 05/04/2021 11:48 AM EDT Tissue specimen (specimen) Transverse colon structure / Unknown 05/04/2021 10:30 AM EDT 05/04/2021 11:48 AM EDT Tissue specimen (specimen) Descending colon structure / Unknown 05/04/2021 10:32 AM EDT 05/04/2021 11:48 AM EDT Liban Pierce MD PATHOLOGY/CYTOLOGY ORDERABLES Final Result Performing Organization Address City/[facility]/ZIP Co de Phone Number [facility]
[address] [place] [address], * Potassium (05/04/2021 9:22 AM EDT) Potassium 4.4 3.5 - 5.2 mmol/L 05/04/2021 9:59 AM EDT [facility] Blood Venipuncture / Unknown 05/04/2021 9:22 AM EDT 05/04/2021 9:38 AM EDT Beto Alanis MD LAB BLOOD ORDERABLES Final Re sult Performing Organization Address City/[facility]/ZIP Co de Phone Number [facility]
[address] [place] [address], * (ABNORMAL) POC Glucose Once (05/04/2021 9:21 AM EDT) Glucose 162(H) 70 - 130 mg/dL 05/04/2021 9:22 AM EDT [facility] Comment:Meter: [id number] Op erator: [id number] Erika Hill Blood 05/04/2021 9:21 AM EDT 05/04/2021 9:22 AM EDT us Liban Pierce MD POINT OF CARE TEST ORDERABLES Final Result [facility]
[address] [place] [address], documented in this encounter Visit Diagnoses Not on filedocumented in this encounter Administered Medications Inactive Administered Medications - up to 3 most recent administrations Medication Order MAR Action Action Date Dose Rate Site famotidine (PEPCID) injection 20 mg 20 mg, Intravenous, Once, On Tue05/04/21 at 0929, For 1 dose, Dilute to 10 mL total volume and give IV push over 2 minutes. Given 05/04/2021 9:38 AM EDT 20 mg lactated ringers infusion 9 mL/hr, Intravenous, Continuous, Starting on Tue05/04/21 at 0929, May switch to NS IV at KVO if renal / if indicated lidocaine PF 1% (XYLOCAINE) injection 0.5 mL 0.5 mL, Injection, Once As Needed, IV Start, Starting on Tue05/04/21 at 0927, For 1 dose midazolam (VERSED) injection 0.5 mg 0.5 mg, Intravenous, Every 10 Minutes PRN, Anxiety prophylaxis, Pre-op comfort, Starting on Tue05/04/21 at 0927, For 2 doses, May repeat dose in 10 minutes one time then contact provider for additional orders. {LUCRECIA} Given 05/04/2021 10:21 AM EDT 2 mg sodium chloride 0.9 % flush 10 mL 10 mL, Intravenous, Every 12 Hours Scheduled, First dose on Tue05/04/21 at 0929 sodium chloride 0.9 % flush 10 mL 10 mL, Intravenous, As Needed, Line Care, Starting on Tue05/04/21 at 0927 sodium chloride 0.9 % infusion 50 mL/hr, Intravenous, Continuous, Starting on Tue05/04/21 at 0930 New Bag 05/04/2021 9:38 AM EDT 50 mL/hr 50 mL/hr documented in this encounter Active and Recently Administered Medications Times are shown in EDT. Scheduled Medication Order 05/02/2021 05/03/2021 05/04/2021 famotidine (PEPCID) injection 20 mg (COMPLETED) 20 mg, Intravenous, Once, On Tue05/04/21 at 0929, For 1 dose, Dilute to 10 mL total volume and give IV push over 2 minutes. 0938 (Given - Provid er: Tiana Diana RN) famotidine (PEPCID) tablet 20 mg 20 mg, Oral, Once, On Tue05/04/21 at 0929, For 1 dose 09 (Due) sodium chloride 0.9 % flush 10 mL 10 mL, Intravenous, Every 12 Hours Scheduled, First dose on Tue05/04/21 at 0929 0929 (Due) Continuous Medication Order 05/02/2021 05/03/2021 05/04/2021 lactated ringers infusion 9 mL/hr, Intravenous, Continuous, Starting on Tue05/04/21 at 0929, May switch to NS IV at O if renal / if indicated 928 (Due) sodium chloride 0.9 % infusion 50 mL/hr, Intravenous, Continuous, Starting on Tue05/04/21 at 0930 0938 (New Bag - Prov ider: Tiana Diana RN) PRN Medication Order 05/02/2021 05/03/2021 05/04/2021 lidocaine PF 1% (XYLOCAINE) injection 0.5 mL 0.5 mL, Injection, Once As Needed, IV Start, Starting on Tue05/04/21 at 0927, For 1 dose midazolam (VERSED) injection 0.5 mg 0.5 mg, Intravenous, Every 10 Minutes PRN, Anxiety prophylaxis, Pre-op comfort, Starting on Tue05/04/21 at 0927, For 2 doses, May repeat dose in 10 minutes one time then contact provider for additional orders. {LUCRECIA} 1021 (Given - Provid er: Frederick Kern CRNA) sodium chloride 0.9 % flush 10 mL 10 mL, Intravenous, As Needed, Line Care, Starting on Tue05/04/21 at 0927 documented in this encounter Care Teams Nurse Orthopedic Relationship Specialty Start Date End Date Aba Espinoza MD [address] [place] [address] [place] [address] PCP - General Family Medicine 02/17/18 documented as of this encounter
--- OUTSIDE RECORDS SUMMARY | 2024-01-18 14:49 | XMS_ITS | Encounter Summary ---
Author Organization [facility] Address [address] [place] [address] Care Team Providers Care Waste Collection Driver Name Role Phone Aba Espinoza MD Primary Care Provider + [phone] Reason for Visit * Reason Onset Date Comments Med Refill 10/09/2018 Encounter Details Date Type Department Care Team (Late st Contact Info) Description 10/09/2018 Refill [facility] CARDIOLOGY [address] [facility] [address] [place] [phone] [place] Morataya MD [address] [facility] [address] [place] [address] Med Refill Social History Tobacco Use Types Packs/Day Years Used Date Smoking Tobacco: Former Cigarettes Q uit: 08/13/2016 Smokeless Tobacco: Never Comments:stopped june 2016 Alcohol Use Standard Drinks/Week Comments Yes 4 (1 standard drink = 0.6 oz pur e alcohol) Sex and Gender Information Value Date Recorded Sex Assigned at Male 11/12/2019 1:21 PM EDT Legal Sex Male 8:04 AM EDT Gender Identity Male 11/12/2019 1:21 PM EDT Sexual Orientation Not on file documented as of this encounter Plan of Treatment Upcoming Encounters Date Type Department Care Team (Late st Contact Info) Description 03/02/2024 2:45 PM EST Telemedicine [facility] SLEEP MEDICINE [address] [place] [phone] Rosalino Tom, INSPECTOR FUEL HOSE [address] [place] [address] documented as of this encounter Visit Diagnoses Not on filedocumented in this encounter Care Teams Waste Collection Driver Relationship Specialty Start Date End Date Aba Espinoza MD [address] [facility] [address] [facility] [address] [place] [address] PCP - General Family Medicine 02/17/18 documented as of this encounter
--- OUTSIDE RECORDS SUMMARY | 2024-01-18 14:49 | XMS_ITS | Encounter Summary ---
Author Organization [facility] Address [address] [place] [address] Care Team Providers Care Application Project Leader Name Role Phone Aba Espinoza MD Primary Care Provider [phone] Encounter Details Date Type Department Care Team (Late Contact Info) Description 06/01/2018 External CPT II DECORATOR HAND - [facility] Social History Tobacco Use Types Packs/Day Years [...] 03/02/2024 2:45 PM EST Telemedicine [facility] SLEEP MEDICINE [address] [facility] [address] [place] [phone] Rosalino Tom W, DUSTLESS OPERATOR [address] [place] [address] documented as of this encounter Visit Diagnoses Not on filedocumented in this encounter Care Teams Application Project Leader Relationship Specialty Start Date End Date Aba Espinoza MD [address] [facility] [address] [place] [address] PCP - General Family Medicine 02/17/18 documented as of this encounter
--- OUTSIDE RECORDS SUMMARY | 2024-01-18 14:49 | XMS_ITS | Encounter Summary ---
Author Organization [facility] Address [address] [place] [address] Care Team Providers Care Radio Tower Technician Name Role Phone Aba Espinoza MD Primary Care Provider + [phone] Reason for Visit * Reason Comments Med Refill Encounter Details Date Type Department Care Team (Late st Contact Info) Description 04/05/2019 Refill [facility] CARDIOLOGY [address] [facility] [address] [place] [phone] [place] Morataya MD [address] [facility] [address] [place] [address] Med Refill Social History Tobacco Use Types [...] Info) Description 03/02/2024 2:45 PM EST Telemedicine [facility] SLEEP MEDICINE [address] [place] [address] Rosalino Tom, WEAVER HAND LOOM [address] [place] [address] documented as of this encounter Visit Diagnoses Not on filedocumented in this encounter Care Teams Radio Tower Technician Relationship Specialty Start Date End Date Aba Espinoza MD [address] [facility] [address] [facility] [address] [place] [id number] PCP - General Family Medicine 02/17/18 documented as of this encounter
--- OUTSIDE RECORDS SUMMARY | 2024-01-18 14:49 | XMS_ITS | Encounter Summary ---
Author Organization [facility] Address [address] [place] [address] Care Team Providers Care Acoustical Installer Name Role Phone Aba Espinoza MD Primary Care Provider [phone] Encounter Details Date Type Department Care Team (Late Contact Info) Description 12/09/2017 External CPT II WEIGHT TRAINING INSTRUCTOR - [facility] Social History Tobacco Use [...] Info) Description 03/02/2024 2:45 PM EST Telemedicine [facility] SLEEP MEDICINE [address] [facility] [address] [place] [phone] Rosalino Tom W, PHYSICAL THERAPY AID [address] [place] [address] documented as of this encounter Visit Diagnoses Not on filedocumented in this encounter Care Teams Acoustical Installer Relationship Specialty Start Date End Date Aba Espinoza MD [address] [place] [facility] [address] [place] [address] PCP - General Family Medicine 02/17/18 documented as of this encounter
--- OUTSIDE RECORDS SUMMARY | 2024-01-18 14:49 | XMS_ITS | Encounter Summary ---
[facility] Address [address] [place] [address] Care Team Providers Care Train System Operator Name Role Phone Aba Espinoza MD Primary Care Provider + [phone] Reason for Visit * Auth/Cert Specialty Diagnoses / Procedures Referred By Kadie casillas Referred To Contact Diagnoses Procedures SD COLONOSCOPY FLX DX W/COLLJ SPEC WHEN PFRMD COLONOSCOPY Referral ID Status Reason Start Date Expiration Date Visits Re quested Visits Authorized [id number] 1 1 Encounter Details Date Type Department Care Team (Latest Contact Info) Description 05/04/2021 7:49 AM EDT - 05/04/2021 11:30 AM EDT Hospital Encounter [facility] END[facility] SUITES [address] [place] [address] Liban Pierce MD [address] [place] [id number] Diarrhea Discharge Disposition: Home or Self Care Social History Tobacco Use Types Packs/Day Years [...] Sign Reading Time Taken Comments Blood Pressure 124/70 05/04/2021 11:00 AM EDT Pulse 64 05/04/2021 11:00 AM EDT Temperature 36.3 ??C (97.3 ??F) 05/04/2021 10:46 AM E DT Respiratory Rate 16 05/04/2021 9:11 AM EDT Oxygen Saturation 95% 05/04/2021 11:00 AM EDT Inhaled Oxygen Concentration - - Weight 117 kg (258 lb) 05/04/2021 9:11 AM EDT Height 190.5 cm (6' 3 ) 05/04/2021 9:11 AM EDT Body Mass Index 32.25 05/04/2021 9:11 AM EDT documented in this encounter Discharge Instructions * Attachments The following attachments cannot be sent through Care Everywhere. * Moderate Conscious Sedation Adult (Hungarian) * Colonoscopy Adult Care After (Hungarian) documented in this encounter Medications at Time [...] disease ??? COPD (chronic obstructive pulmonary disease) ([facility]) 2020 ??? Coronary artery disease ??? Diabetes mellitus (HCC) ??? Hyperlipidemia ??? Hypertension ??? Myocardial infarction (HCC) ??? Sleep apnea 10/2020 Past Surgical History: Procedure Laterality Date ??? CARDIAC CATHETERIZATION Bilateral 07/05/2016 Procedure: Right and Left Heart Cath; Surgeon: Steve Valentino MD; [facility]; Service: ??? CARDIAC DEFIBRILLATOR PLACEMENT Left 02/2017 also PPM ??? COLONOSCOPY N/A 07/18/2017 Procedure: COLONOSCOPY; Surgeon: Liban Pierce MD; Location: [facility]; Service: Gastroenterology ??? WISDOM TOOTH EXTRACTION [...] BY MOUTH ONCE NIGHTLY ONE HOUR BEFORE [id number] tablet 11 05/03/2021 at Unknown time ??? [...] hours) Procedure Component Value Units Date/Time Potassium [[id number]] (Normal) Collected: 05/04/21921 Specimen: Blood Updated: 05/04/21958 Potassium 4.4 mmol/L POC Glucose Once [[id number]] (Abnormal) Collected: 05/04/21920 Specimen: Blood Updated: 05/04/21921 Glucose 162 mg/dL Comment: Meter: [id number] Tanning Drum Operator: [id number] Erika Hill Imaging Results (Last 24 Hours) [...] COLONOSCOPY with biopsies Surgeon(s): Liban Pierce MD Pattern Lease Inspector: Rachel Osullivan RN Endo Tar Worker: Sherrie Jeronimo CNA was responsible for performing the following activities. pastoral assistant and their skilled assistance was necessary for the success of this case. Anesthesia: Monitored Anesthesia Care Staff: Pattern Lease Inspector: Rachel Osullivan RN Endo Tar Worker: Sherrie Jeronimo CNA Estimated Blood Loss: Minimal Specimens: Order Name Source Comment Collection Info Order Time POTASSIUM For all patients with renal disease, within 3 days if taking digoxin, tzubxhsza-ojmpxyitivrxd-czqrwikizkdoc, or diuretics. Collected By: Tiana Diana RN [...] Info) Description 03/02/2024 2:45 PM EST Telemedicine [facility] SLEEP MEDICINE [address] [place] [address] Rosalino Tom, MEDICAL SCHEDULER [address] [place] [address] documented as of this encounter Procedures Procedure Name Priority Date/Time Associated Diagnosis Comments TISSUE PATHOLOGY EXAM Routine 05/04/2021 10:28 AM EDT Diarrhea SD COLONOSCOPY FLX DX W/COLLJ SPEC WHEN PFRMD 05/04/2021 10:02 AM EDT POTASSIUM Routine 05/04/2021 9:22 AM EDT POCT GLUCOSE FINGERSTICK Routine 05/04/2021 9:21 AM EDT documented in this encounter Results * Tissue Pathology Exam (05/04/2021 10:28 AM EDT) Case Report Surgical Pathology Report ? Case: [id number] ? Authorizing Provider: ??Liban Pierce MD ? Collected: ? 05/04/2021 10:28 AM ? Ordering Location: ? [facility] ?? Received: ?05/04/2021 11:48 AM ? ENDO SUITES ? Pathologist: ? Ike Marie MD ? Specimens: ?? 1) - Small Intestine, ileum biopsy for path ? 2) - Large Intestine, Transverse Colon, right/transverse colon biopsy for path ? 3) - Large Intestine, Left / Descending Colon, left colon biopsy for path ? 05/05/2021 9:18 AM [facility] Clinical Information Diarrhea 05/05/2021 9:18 AM [facility] Final Diagnosis ILEUM, BIOPSY: Small bowel mucosa with no significant pathologic change. 2. TRANSVERSE COLON, BIOPSIES: Colonic mucosa with no significant pathologic change. 3. DESCENDING COLON, BIOPSIES: Colonic mucosa with no significant pathologic change. GJK 05/05/2021 9:18 AM [facility] Gross Description 1. Small Intestine. Received [...] in a single cassette. 05/05/2021 9:18 AM [facility] Microscopic Description The slides are reviewed and demonstrate histopathologic features supporting the above rendered diagnosis. 05/05/2021 9:18 AM EDT [facility] Tissue Structure of small intestine / Unknown 05/04/2021 10:28 AM EDT 05/04/2021 11:48 AM EDT Tissue specimen (specimen) Transverse colon structure / Unknown 05/04/2021 10:30 AM EDT 05/04/2021 11:48 AM EDT Tissue specimen (specimen) Descending colon structure / Unknown 05/04/2021 10:32 AM EDT 05/04/2021 11:48 AM EDT Liban Pierce MD PATHOLOGY/CYTOLOGY ORDERABLES Final Result Performing Organization Address City/[facility]/ZIP Co de Phone Number [facility]
[address] [place] [address], * Potassium (05/04/2021 9:22 AM EDT) Potassium 4.4 3.5 - 5.2 mmol/L 05/04/2021 9:59 AM EDT [facility] Blood Venipuncture / Unknown 05/04/2021 9:22 AM EDT 05/04/2021 9:38 AM EDT Beto Alanis MD LAB BLOOD ORDERABLES Final Re sult Performing Organization Address City/[facility]/ZIP Co de Phone Number [facility]
[address] [place] [address], * (ABNORMAL) POC Glucose Once (05/04/2021 9:21 AM EDT) Glucose 162(H) 70 - 130 mg/dL 05/04/2021 9:22 AM EDT [facility] Comment:Meter: [id number] Op erator: [id number] Erika Hill Blood 05/04/2021 9:21 AM EDT 05/04/2021 9:22 AM EDT us Liban Pierce MD POINT OF CARE TEST ORDERABLES Final Result [facility]
[address] [place] [address], documented in this encounter Visit Diagnoses Diagnosis Diarrhea documented in this encounter Administered Medications Inactive Administered [...] {LUCRECIA} 1021 (Given - Provid er: Frederick Kern, ELOINA) sodium chloride 0.9 % flush 10 mL 10 mL, Intravenous, As Needed, Line Care, Starting on Tue05/04/21 at 0927 documented in this encounter Care Teams Train System Operator Relationship Specialty Start Date End Date Aba Espinoza MD [address] [place] [address] PCP - General Family Medicine 02/17/18 documented as of this encounter
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
--- OUTSIDE RECORDS SUMMARY | 2024-01-18 14:49 | XMS_ITS | Encounter Summary ---
[facility] Address [address] [place] [address] Care Team Providers Care Career Technical Counselor Name Role Phone Aba Espinoza MD Primary Care Provider + [phone] Reason for Visit * Reason Comments Med Refill Encounter Details Date Type Department Care Team (Late st Contact Info) Description 01/09/2020 Refill [facility] [address] [place] [id number] Carmelina Huang, CUT OUT AND MARKING MACHINE OPERATOR [address] [place] [address] Med Refill Social History Tobacco Use Types [...] encounter Miscellaneous Notes * Telephone Encounter - Laron Mcclelland RN - 01/09/2020 4:14 PM EST Refill. documented in this encounter Plan of Treatment Upcoming Encounters Date Type Department Care Team (Late st Contact Info) Description 03/02/2024 2:45 PM EST Telemedicine [facility]EP MEDIC[facility] [address] [facility] [place] [address] Rosalino Tom, CUT OUT AND MARKING MACHINE OPERATOR [address] [place] [address] documented as of this encounter Visit Diagnoses Not on filedocumented in this encounter Care Teams Career Technical Counselor Relationship Specialty Start Date End Date Aba Espinoza MD [address] [facility] [address] [facility] [address] [place] [address] PCP - General Family Medicine 02/17/18 documented as of this encounter
--- OUTSIDE RECORDS SUMMARY | 2024-01-18 14:49 | XMS_ITS | Encounter Summary ---
Author Organization [facility] Address [address] [address] Care Team Providers Care Angle Bender Name Role Phone Aba Espinoza MD Primary Care Provider + [phone] Reason for Visit * Reason Comments Med Refill Encounter Details Date Type Department Care Team (Late st Contact Info) Description 11/15/2019 Refill [facility] [address] [facility] [address] [place] [id number] Ky Morataya MD [address] [facility] [address] [place] [address] Med Refill Social History Tobacco Use Types [...] Info) Description 03/02/2024 2:45 PM EST Telemedicine [facility] SLEEP MEDICINE [address] [place] [address] Rosalino Tom, BORING MILL SET UP OPERATOR [address] [place] [address] documented as of this encounter Visit Diagnoses Not on filedocumented in this encounter Care Teams Angle Bender Relationship Specialty Start Date End Date Aba Espinoza MD [address] [facility] [address] [facility] [address] [place] [id number] PCP - General Family Medicine 02/17/18 documented as of this encounter
--- OUTSIDE RECORDS SUMMARY | 2024-01-18 14:49 | XMS_ITS | Encounter Summary ---
Author Organization [facility] Address [address] [place] [address] Care Team Providers Care Skidder Name Role Phone Aba Espinoza MD Primary Care Provider + [phone] Reason for Visit * Reason Comments Med Refill Encounter Details Date Type Department Care Team (Late st Contact Info) Description 09/19/2019 Refill [facility] [address] [facility] [address] [place] [phone] Ky Morataya MD [address] [facility] [address] [place] [address] Med Refill Social History Tobacco Use Types [...] Info) Description 03/02/2024 2:45 PM EST Telemedicine [facility] SLEEP MEDICINE [address] [place] [address] Rosalino Tom, HEADING MATCHER AND ASSEMBLER [address] [place] [address] documented as of this encounter Visit Diagnoses Not on filedocumented in this encounter Care Teams Skidder Relationship Specialty Start Date End Date Aba Espinoza MD [address] [facility] [address] [facility] [address] [place] [id number] PCP - General Family Medicine 02/17/18 documented as of this encounter
--- OUTSIDE RECORDS SUMMARY | 2024-01-18 14:49 | XMS_ITS | Encounter Summary ---
Author Organization [facility] Address [address] [place] [address] Care Team Providers Care Supervisor Painting Name Role Phone Aba Espinoza MD Primary Care Provider + [phone] Reason for Visit * Reason Onset Date Comments Med Refill 04/16/2020 Encounter Details Date Type Department Care Team (Late st Contact Info) Description 04/16/2020 Refill [facility] CARDIOLOGY [address] [facility] [address] [place] [phone] [place] Morataya MD [address] [facility] [address] [place] [address] Med Refill Social History Tobacco Use Types [...] [facility] SLEEP MEDICINE [address] [place] [phone] Rosalino Tom, SENIOR MARKET INTELLIGENCE CONSULTANT [address] [place] [address] documented as of this encounter Visit Diagnoses Not on filedocumented in this encounter Care Teams Supervisor Painting Relationship Specialty Start Date End Date Aba Espinoza MD [address] [facility] [address] [facility] [address] [place] [address] PCP - General Family Medicine 02/17/18 documented as of this encounter
--- OUTSIDE RECORDS SUMMARY | 2024-01-18 14:49 | XMS_ITS | Encounter Summary ---
Author Organization [facility] Address [address] [place] [address] Care Team Providers Care Mems Integration Engineer Name Role Phone Aba Espinoza MD Primary Care Provider + [phone] Encounter Details Date Type Department Care Team (Late st Contact Info) Description 01/13/2021 Telephone [facility] SLEEP MEDICINE [address] [facility] [address] [place] [address] Ita Rice, [facility] Social History Tobacco Use Types Packs/Day Years [...] encounter Miscellaneous Notes * Telephone Encounter - Ita Rice RegSched Rep - 01/13/2021 11:10 AM EST CREATED IN ERROR documented in this encounter Plan of Treatment Upcoming Encounters Date Type Department Care Team (Late st Contact Info) Description 03/02/2024 2:45 PM EST Telemedicine [facility] SLEEP MEDICINE [address] [facility] [address] [place] [address] Rosalino Tom, JAY [address] [place] [address] documented as of this encounter Visit Diagnoses Not on filedocumented in this encounter Care Teams Mems Integration Engineer Relationship Specialty Start Date End Date Aba Espinoza MD [address] [facility] [address] [facility] [address] [place] [address] PCP - General Family Medicine 02/17/18 documented as of this encounter
--- OUTSIDE RECORDS SUMMARY | 2024-01-18 14:49 | XMS_ITS | Encounter Summary ---
Author Organization [facility] Address [address] [place] [address] Care Team Providers Care Investigator Cash Shortage Name Role Phone Aba Espinoza MD Primary Care Provider + [phone] Reason for Referral * Durable Medical Equipment (Routine) - Closed Specialty Diagnoses / Procedures Referred By Kadie casillas Referred To Contact Diagnoses IVY (obstructive sleep apnea) Procedures PAP Therapy Liz Lai APRN [address] [facility] [address] [place] [address] Phone: tel: fax: [address] [place] [address] Phone: tel: fax: Referral ID Status Reason Start Date Expiration Date Visits Re quested Visits Authorized [id number] Closed 05/01/2021 05/01/2022 1 1 Reason for Visit * Reason Comments Follow-up Encounter Details Date Type Department Care Team (Late st Contact Info) Description 05/01/2021 9:15 AM EDT Telemedicine [facility] SLEEP MEDICINE [address] [facility] [address] [place] [phone] Liz Lai APRN [address] [facility] [address] [place] [address] IVY (obstructive sleep apnea) (Primary Dx); Restless legs syndrome (RLS) Social History Tobacco [...] - Inhaled Oxygen Concentration - - Weight 117 kg (258 lb) 05/01/2021 9:26 AM EDT Height 190.5 cm (6' 3 ) 05/01/2021 9:26 AM EDT Body Mass Index 32.25 05/01/2021 9:26 AM EDT documented in this encounter Progress Notes * Liz Lai, MATERIAL FLOW ANALYST - 05/01/2021 9:15 AM EDT Chief Complaint: Chief Complaint Patient presents with ??? Follow-up HPI: Dane Ray is a 70 y.o. male [...] He did have at[facility] that did show moderate obstructive sleep [...] night to use the restroom. Patienthas an Ben[place] score of 1/24. Patient is having no concerns or complaints regarding CPAP use and does wish to continue therapy. Patient does feel he is doing very well with Requip 0.5 mg. If he does not take this an hour beforebedtime he will have a leg movements throughout the night. Of asked patient if he would like to increase the dose and he is does not at this time he if he takes it 1 hour before bed he does very well. He has no side effects from this medication and will continue use. Current medications are: Current Outpatient Medications: ??? allopurinol (ZYLOPRIM) 100 MG tablet, Daily., Disp: , Rfl: ??? aspirin 81 MG chewable tablet, Chew 1 tablet Daily., Disp: 30 tablet, Rfl: 12 ??? BD Pen Needle Dori 2nd Gen 32G X 4 MM misc, , Disp: , Rfl: ??? carvedilol (COREG) 3.125 MG tablet, Take 1 tablet by mouth 2 (Two) Times a Day With Meals. (Patient taking differently: Take 6.25 mg by mouth 2 (Two) Times a Day With Meals.), Disp: 60 tablet, Rfl: 0 ??? empagliflozin (Jardiance) 25 MG tablet tablet, Take by mouth Daily., Disp: , Rfl: ??? escitalopram (LEXAPRO) 20 MG tablet, Take 20 mg by mouth Daily., Disp: , Rfl: ??? glipiZIDE (GLUCOTROL) 5 MG tablet, Take 5 mg by mouth Daily., Disp: , Rfl: ??? magnesium oxide (MAG-OX) [...] BEDTIME, Disp: 30 tablet, Rfl: 11 ??? sacubitril-valsartan (Entresto) 24-26 MG tablet, Take 1 tablet by mouth 2 (Two) Times a Day., Disp: 180 tablet, Rfl: 3 ??? simvastatin (ZOCOR) 40 MG tablet, Take 40 mg by mouth Every Night., Disp: , Rfl: ??? spironolactone (ALDACTONE) 25 MG tablet, Take 1 tablet by mouth Daily. (Patient taking differently: Take 25 mg by mouth Daily. Take 1/2 tablet in am.), Disp: 30 tablet, Rfl: 12. The patient's relevant past medical, surgical, family and social history were reviewed and updated in [facility] as appropriate. Review of Systems Eyes: Positive for visual disturbance. Respiratory: Positive for apnea, chest tightness and shortness of breath. Cardiovascular: Positive for chest pain, palpitations and leg swelling. Musculoskeletal: Positive for arthralgias, joint swelling and myalgias. Neurological: Positive for light-headedness and numbness. Psychiatric/Behavioral: Positive for sleep disturbance. The patient is nervous/anxious. All other systems reviewed and are negative. Objective: Physical Exam Constitutional: Appearance: Normal appearance. HENT: Head: Normocephalic and atraumatic. Pulmonary: Effort: Pulmonary effort is normal. No respiratory distress. Neurological: Mental Status: He is alert and oriented to person, place, and time. Psychiatric: Mood and Affect: Mood normal. Behavior: Behavior normal. Thought Content: Thought content normal. Judgment: Judgment normal. 55/55 days of use Greater than 4-hour use 84% Settings 8-18 95th percentile pressure 10.6 AHI of 3.9 ASSESSMENT/PLAN Diagnoses and all orders for this visit: 1. IVY (obstructive sleep apnea) (Primary) - PAP Therapy 2. Restless legs syndrome (RLS) 1. Counseled patient regarding multimodal approach with healthy nutrition, healthy sleep, regular physical activity, social activities, counseling, and medications. Encouraged to practice lateral sleep position. Avoid alcohol and sedatives close to bedtime. 2. Refill supplies x1 year. Return to clinic 1 year or sooner symptoms warrant. Patient will continue Requip with no changes to dosing at this time he gave verbal consent today for video visit. I have reviewed the results of my evaluation and impression and discussed my recommendations in detail with the patient. Signed by Liz Lai, JAY May 01, 2021 CC: Aba Espinoza MD No ref. provider found documented in this encounter Plan of Treatment Upcoming Encounters Date Type Department Care Team (Late st Contact Info) Description 03/02/2024 2:45 PM EST Telemedicine [facility] SLEEP MEDICINE [address] [facility] [address] [place] [phone] Rosalino Tom, MATERIAL FLOW ANALYST [address] [place] [address] documented as of this encounter Visit Diagnoses Diagnosis IVY (obstructive sleep apnea)- Primary Obstructive sleep apnea (adult) (pediatric) Restless legs syndrome (RLS) documented in this encounter Care Teams Investigator Cash Shortage Relationship Specialty Start Date End Date Aba Espinoza MD [address] [facility] [address] [facility] 2 [place] [address] PCP - General Family Medicine 02/17/18 documented as of this encounter
--- OUTSIDE RECORDS SUMMARY | 2024-01-18 14:49 | XMS_ITS | Encounter Summary ---
Author Organization [facility] Address [address] [place] [address] Care Team Providers Care Weaver Apprentice Name Role Phone Aba Espinoza MD Primary Care Provider + [phone] Reason for Visit * Reason Comments Cardiomyopathy Shortness of Breath Encounter Details Date Type Department Care Team (Late st Contact Info) Description 11/19/2020 11:00 AM EDT Office Visit [facility] CARDIOLOGY [address] [facility] [facility] [address] [place] [address] Ky Morataya MD [address] [facility] [address] [place] [address] Ischemic heart disease (Primary Dx); Cardiomyopathy, unspecified [...] Sign Reading Time Taken Comments Blood Pressure 126/72 11/19/2020 11:19 AM EDT Pulse 72 11/19/2020 11:19 AM EDT Temperature - - Respiratory Rate - - Oxygen Saturation 97% 11/19/2020 11:19 AM EDT Inhaled Oxygen Concentration - - Weight 119 kg (262 lb) 11/19/2020 11:13 AM EDT Height 188 cm (6' 2 ) 11/19/2020 11:13 AM EDT Body Mass Index 33.64 11/19/2020 11:13 AM EDT documented in this encounter Progress Notes * Ky Morataya MD - 11/19/2020 11:00 AM EDTAssociated Order(s): ECG 12 Lead Subjective: Encounter Date:11/19/2020 Patient ID: Dane Ray is a 70 y.o. 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 ?? PHYSICIAN: Aba Espinoza MD REMOTE TRIM INSTALLER: Steve Valentino MD HEART FAILURE/TRANSPLANT TRIM INSTALLER:??Liss Acevedo MD ([facility]), Gary Vu MD CARDIOTHORACIC SURGEON: Surya Lopez MD; Dr. Bird at [facility] FLIGHT ENGINEER: Fili Sanchez MD SLEEP PHYSICIAN: Heriberto Chaudhary MD Chief Complaint: Chief Complaint Patient presents with ??? Cardiomyopathy ??? Shortness of Breath Problem List: 1. Coronary artery disease/ischemic cardiomyopathy: a. Remote??exercise stress test x 6: Negative per patient-data deficit, in [place] b. Echocardiogram, 07/13/2016; moderately enlarged left atrium, [...] biatrial enlargement f. Medtronic ICD model number [id number] implanted at [facility], 12/06/2016?? g. Echocardiogram,??06/30/2017, [facility]: LV severely dilated, grade 2 LV??diastolic??dysfunction, EF??0.15, no LV thrombus, LA mildly dilated, aortic valve exhibits sclerosis h. Echocardiogram, December 2017 at [facility]; EF 0.15 per patient report, minute ventilation test acceptable-data deficit?? i. CCS??class I chest discomfort/NYHA class II dyspnea with exertion, October 2019 with abnormal echocardiogram at [facility] (LVEF 0.20), July 2019 j. Echocardiogram 07/07/2020 at [facility] with EF 20% k. Acceptable remote device interrogation October 2020 with 8.3 year battery longevity, no ventricular arrhythmias l. CCS??class I chest discomfort/NYHA class II dyspnea with exertion November 2020 2. Occasional PVCs 3. Type 2 diabetes mellitus, hemoglobin A1c 7%, 6.3% October 2020 4. Hypertension 5. Hyperlipidemia 6. Former??tobacco use; on Chantix, quit 08/13/2016 7. Mild-moderate??obesity; BMI 33.64 8. Anxiety 9. Remote fall with left rib fracture - data deficit, July 2018. 10. Surgical history: a. C b. BiV ICD, November 2016 No Known Allergies Current Outpatient Medications: ??? allopurinol (ZYLOPRIM) 100 [...] PAIN., Disp: 4.9 g, Rfl: 2 ??? sacubitril-valsartan (Entresto) 24-26 MG tablet, Take [...] in am.), Disp: 30 tablet, Rfl: 12 ?? Basaglar 10 units per day History of Present Illness: Patient returns for scheduled 12-month follow up. In the interim the patient has not had any hospitalizations. He is followed closely at [facility] and had an echocardiogram in June 2020 with EF 20%. The patient recently saw his [facility] mascara molder and wastold that his biventricular ICD had 8 years left on it and LVAD was deferred. He was recently switched from Januvia to Jardiance. He is no longer taking torsemide. He has not noticed any increased swelling or increased shortness of breath. He also denies any chest pain, presyncope, or syncope. He has an upcoming sleep study December [address] Heriberto Chaudhary to assess for sleep apnea. He has frequent nocturnal awakening. His last A1c was 6.3%. He has had both of his Moderna COVID vaccinations aswell as his shingles vaccination. The patient is able to do most of his activities without many cardiopulmonary complaints. He just got a new puppy over the summer. He has torsemide to use PRN at home for increased edema/SOB. He is accompanied to the office today by his who confirms his history. Review of Systems Cardiovascular: Positive for dyspnea on exertion. Obtained and negative except as outlined in problem list and HPI. ECG 12 Lead Date/Time: 11/19/2020 12:25 PM Performed by: Ky Morataya MD Authorized by: Ky Morataya MD Rhythm comments: SR with 1st degree AV block with occasional PVC's, nonspecific T wave abnormality,70bpm, QRS 104ms, QTc 455 ms, MD 254ms, no significant changes from last ECG July 2017 Objective: Vitals: 11/19/20 1113 11/19/20 1119 BP: 119/72 126/72 BP Location: Right arm Right arm Patient Position: Sitting Standing Pulse: 70 72 SpO2: 97% 97% Weight: 119 kg (262 lb) Height: 188 cm (74 ) Body mass index is 33.64 kg/m??. Last weight: 260 lbs Vitals reviewed. Constitutional: Appearance: Well-developed. Neck: Thyroid: No thyromegaly. Vascular: No carotid bruit or JVD. Lymphadenopathy: No cervical adenopathy. Pulmonary: Effort: Pulmonary effort is normal. Breath sounds: Decreased breath sounds present. No wheezing. No rhonchi. No rales. Cardiovascular: Regular rhythm. Murmurs: There is a grade 2/6 mid frequency harsh early systolic murmur at the LLSB. No gallop. No S3 gallop. Pulses: Dorsalis pedis: 2+ bilaterally. Posterior tibial: 2+ bilaterally. Edema: Peripheral edema absent. Abdominal: Palpations: Abdomen is soft. There is no abdominal mass. Tenderness: There is no abdominal tenderness. Musculoskeletal: Normal range of motion. Skin: General: Skin is warm and dry. Findings: No rash. Comments: Left precordial PCD nominal Neurological: Mental Status: Alert and oriented to person, place, and time. Lab Review: 11/05/2020: ?? Lipid panel: cholesterol 123, HDL 59, triglycerides 72, LDL 49 ?? HgbA1C 6.3% ?? CMP: creatinine 1.41, ALT 14, AST 14, alkaline phosphatase 54 Assessment: Overall continued acceptable course with no new interim cardiopulmonary complaints with acceptable functional status. We will defer additional diagnostic or therapeutic intervention from a cardiac perspective at this time. Last EF was 20% on echocardiogram June 2020 at [facility] on GDMT and Bi VICD. Diagnosis Plan 1. Ischemic heart disease No recurrent angina pectoris or CHF on current activity schedule; continue current treatment 2. Cardiomyopathy, unspecified type (HCC) Last EF was 20% on echocardiogram June 2020 at [facility] on GDMT and BiVICD 3. Essential hypertension Controlled, continue current cardiac medications 4. Dyslipidemia No new labs to review, continue simvastatin Plan: 1. Patient to continue current medications and close follow up with the above providers. 2. Tentative cardiology follow up in November 2021 or patient may return sooner PRN. Scribed for Ky Morataya MD by Carmelina Huang APRN. 11/19/2020 12:21 EDT I, Ky Morataya MD, [facility], personally performed the services described in this documentation as scribed by the above named individual in my presence, and it is both accurate and complete. At 12:59EDT on 11/19/2020 documented in this encounter Plan of Treatment Upcoming Encounters Date Type Department Care Team (Late st Contact Info) Description 03/02/2024 2:45 PM EST Telemedicine [facility] SLEEP MEDICINE [address] [facility] [address] [place] [phone] Roaslino Tom, VARNISH COOKER [address] [place] [address] documented as of this encounter Procedures Procedure Name Priority Date/Time Associated Diagnosis Comments ECG 12-LEAD Routine 11/19/2020 Ischemic heart disease documented in this encounter Results * ECG 12-LEAD (11/19/2020) Narrative 11/19/2020 Ky Moraatya MD ? 11/19/2020 12:59 PM ECG 12 Lead Date/Time: 11/19/2020 12:25 PM Performed by: Ky Morataya MD Authorized by: Ky Morataya MD Rhythm comments: SR with 1st degree AV block with occasional PVC's, nonspecific T wave abnormality, 70bpm, QRS 104ms, QTc 455 ms, MD 254ms, no significant changes from last ECG July 2017 Procedure Note Ky Morataya MD - 11/19/2020 11:00 AM EDT Subjective: Encounter Date:11/19/2020 Patient ID: Dane Ray is a 70 y.o. 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 ?? PHYSICIAN: Aba Espinoza MD REMOTE TRIM INSTALLER: Steve Valentino MD HEART FAILURE/TRANSPLANT TRIM INSTALLER:??Liss Acevedo MD ([facility]),Gary Vu MD CARDIOTHORACIC SURGEON: Surya Lopez MD; Dr. Bird at [facility] FLIGHT ENGINEER: Fili Sanchez MD SLEEP PHYSICIAN: Heriberto Chaudhary MD Chief Complaint: Chief Complaint Patient presents with ? ? Cardiomyopathy ? ? Shortness of Breath Problem List: 1. Coronary artery disease/ischemic cardiomyopathy: a. Remote??exercise stress test x 6: [place] b. Echocardiogram, 07/13/2016; moderately enlarged left atrium, moderatelydilated LV with severely reduced LV systolic function, LVEF 0.20-0.25 withmultiple omental wall motion abnormalities, mild MR and TR, RVSP 38 mmHg c. Exercise stress test, 06/30/2016; abnormal, myocardial perfusion imagingabnormal, overall LV systolic function is abnormal with regional wallmotion abnormalities, LVEF 0.18 d. Right and Left heart catheterization, 07/05/2016; left main 40%distal,??LAD 80% mid with collateral flow to the RCA, left circumflex 80%plaque, RCA 100% mid with collaterals from the left and right, LVEF 0.10,mixed ischemia/nonischemic cardiomyopathy, 2 vessel CAD, not a candidatefor CABG at this time after cardiac viability testing and might need anLVAD and/or heart transplant, transplant specialist at e. Cardiac MRI, 07/28/2016; LVEF 0.17, mixed viability area in the mid todistal LAD territory and nonviable areas of the RCA territory, RV normalin size, RVEF 34%, biatrial enlargement f. Medtronic ICD model number [id number] implanted at [facility],12/06/2016?? g. Echocardiogram,??06/30/2017, [facility]: LV severely dilated, grade2 LV??diastolic??dysfunction, EF??0.15, no LV thrombus, LA mildly dilated,aortic valve exhibits sclerosis h. Echocardiogram, December 2017 at [facility]; EF 0.15 per patientreport, minute ventilation test acceptable-data deficit?? i. CCS??class I chest discomfort/NYHA class II dyspnea with exertion,October 2019 with abnormal echocardiogram at [facility] (LVEF0.20), July 2019 j. Echocardiogram 07/07/2020 at [facility] with EF 20% k. Acceptable remote device interrogation October 2020 with 8.3 yearbattery longevity, no ventricular arrhythmias l. CCS??class I chest discomfort/NYHA class II dyspnea with exertionOct2020 2. Occasional PVCs 3. Type 2 diabetes mellitus, hemoglobin A1c 7%, 6.3% October 2020 4. Hypertension 5. Hyperlipidemia 6. Former??tobacco use; on Chantix, quit 08/13/2016 7. Mild-moderate??obesity; BMI 33.64 8. Anxiety 9. Remote fall with left rib fracture - data deficit, July 2018. 10. Surgical history: a. [facility] b. BiV ICD, November 2016 No Known Allergies Current Outpatient Medications: ? ? allopurinol (ZYLOPRIM) 100 MG tablet, Daily., Disp: , Rfl: ? ? aspirin 81 MG chewable tablet, Chew 1 tablet Daily., Disp: 30 tablet,Rfl: 12 ? ? carvedilol (COREG) 3.125 MG tablet, Take 1 tablet by mouth 2 (Two)Times a Day With Meals. (Patient taking differently: Take 6.25 mg by mouth2 (Two) Times a Day With Meals.), Disp: 60 tablet, Rfl: 0 ? ? empagliflozin (Jardiance) 25 MG tablet tablet, Take by mouth Daily.,Disp: , Rfl: ? ? escitalopram (LEXAPRO) 20 MG tablet, Take 20 mg by mouth Daily., Disp:, Rfl: ? ? glipiZIDE (GLUCOTROL) 5 MG tablet, Take 5 mg by mouth Daily., Disp: ,Rfl: ? ? magnesium oxide (MAG-OX) 400 MG tablet, Take 400 mg by mouth 2 (Two)Times a Day., Disp: , Rfl: ? ? metFORMIN (GLUCOPHAGE) 1000 MG tablet, Take 1,000 mg by mouth 2 (Two)Times a Day With Meals., Disp: , Rfl: ? ? naproxen sodium (ALEVE) 220 MG tablet, Take 220 mg by mouth As Needed.,Disp: , Rfl: ? ? nitroglycerin (NITROLINGUAL) 0.4 MG/SPRAY spray, PLACE 1 SPRAY UNDERTHE TONGUE EVERY 5 MINUTES NEEDED FOR CHEST PAIN., Disp: 4.9 g, Rfl:2 ? ? sacubitril-valsartan (Entresto) 24-26 MG tablet, Take 1 tablet by mouth2 (Two) Times a Day., Disp: 180 tablet, Rfl: 3 ? ? simvastatin (ZOCOR) 40 MG tablet, Take 40 mg by mouth Every Night.,Disp: , Rfl: ? ? spironolactone (ALDACTONE) 25 MG tablet, Take 1 tablet by mouth Daily.(Patient taking differently: Take 25 mg by mouth Daily. Take 1/2 tablet nick.), Disp: 30 tablet, Rfl: 12 ?? Basaglar 10 units per day History of Present Illness: Patient returns for scheduled 12-month followup. In the interim the patient has not had any hospitalizations. He isfollowed closely at [facility] and had an echocardiogram in June 2020with EF 20%. The patient recently saw his [facility] cardiologistand was told that his biventricular ICD had 8 years left on it and LVADwas deferred. He was recently switched from Januvia to Jardiance. He isno longer taking torsemide. He has not noticed any increased swelling orincreased shortness of breath. He also denies any chest pain, presyncope,or syncope. He has an upcoming sleep study December [address] Ellison to assess for sleep apnea. He has frequent nocturnal awakening.His last A1c was 6.3%. He has had both of his Moderna COVID vaccinationsas well as his shingles vaccination. The patient is able to do most ofhis activities without many cardiopulmonary complaints. He just got a newpuppy over the summer. He has torsemide to use PRN at home for increasededema/SOB. He is accompanied to the office today by his who confirmshis history. Review of Systems Cardiovascular: Positive for dyspnea on exertion. Obtained and negative except as outlined in problem list and HPI. ECG 12 Lead Date/Time: 11/19/2020 12:25 PM Performed by: Ky Morataya MD Authorized by: Ky Morataya MD Rhythm comments: SR with 1st degree AV block with occasional PVC's,nonspecific T wave abnormality, 70bpm, QRS 104ms, QTc 455 ms, MD 254ms, nosignificant changes from last ECG July 2017 Objective: Vitals: 11/19/20 1113 11/19/20 1119 BP: 119/72 126/72 BP Location: Right arm Right arm Patient Position: Sitting Standing Pulse: 70 72 SpO2: 97% 97% Weight: 119 kg (262 lb) Height: 188 cm (74 ) Body mass index is 33.64 kg/m??. Last weight: 260 lbs Vitals reviewed. Constitutional: Appearance: Well-developed. Neck: Thyroid: No thyromegaly. Vascular: No carotid bruit or JVD. Lymphadenopathy: No cervical adenopathy. Pulmonary: Effort: Pulmonary effort is normal. Breath sounds: Decreased breath sounds present. No wheezing. Norhonchi. No rales. Cardiovascular: Regular rhythm. Murmurs: There is a grade 2/6 mid frequency harsh early systolic murmurat the LLSB. No gallop. No S3 gallop. Pulses: Dorsalis pedis: 2+ bilaterally. Posterior tibial: 2+ bilaterally. Edema: Peripheral edema absent. Abdominal: Palpations: Abdomen is soft. There is no abdominal mass. Tenderness: There is no abdominal tenderness. Musculoskeletal: Normal range of motion. Skin: General: Skin is warm and dry. Findings: No rash. Comments: Left precordial PCD nominal Neurological: Mental Status: Alert and oriented to person, place, and time. Lab Review: 11/05/2020: ?? Lipid panel: cholesterol 123, HDL 59, triglycerides 72, LDL 49 ?? HgbA1C 6.3% ?? CMP: creatinine 1.41, ALT 14, AST 14, alkaline phosphatase 54 Assessment: Overall continued acceptable course with no new interim cardiopulmonarycomplaints with acceptable functional status. We will defer additionaldiagnostic or therapeutic intervention from a cardiac perspective at thistime. Last EF was 20% on echocardiogram June 2020 at [facility] onGDMT and BiVICD. Diagnosis Plan 1. Ischemic heart disease No recurrent angina pectoris or CHF on currentactivity schedule; continue current treatment 2. Cardiomyopathy, unspecified type (HCC) Last EF was 20% onechocardiogram June 2020 at [facility] on GDMT and BiVICD 3. Essential hypertension Controlled, continue current cardiacmedications 4. Dyslipidemia No new labs to review, continue simvastatin Plan: 1. Patient [facility] continue current medications [facility] 2. Tentative cardiology follow up in November 2021 or patient may returnsooner PRN. Scribed for Ky Morataya MD by Carmelina Huang, VARNISH COOKER. 11/19/2020 12:21EDT I, Ky Morataya MD, [facility], personally performed the services describedin this documentation as scribed by the above named individual in mypresence, and it is both accurate and complete. At 12:59 EDT on11/19/2020 us Ky Morataya MD ECG ORDERABLES Final Result documented in this encounter Visit Diagnoses Diagnosis Ischemic heart disease- Primary Other specified forms of chronic ischemic heart disease Cardiomyopathy, unspecified type Essential hypertension Unspecified essential hypertension Dyslipidemia Other and unspecified hyperlipidemia documented in this encounter Care Teams Weaver Apprentice Relationship Specialty Start Date End Date Aba Espinoza MD Critical access hospital0 [facility] [address] [facility] [address] [place] [address] PCP - General Family Medicine 02/17/18 documented as of this encounter
--- OUTSIDE RECORDS SUMMARY | 2024-01-18 14:49 | XMS_ITS | Encounter Summary ---
Author Organization [facility] Address [address] [place] [address] Care Team Providers Care Pit Clerk Name Role Phone Aba Espinoza MD Primary Care Provider [phone] Encounter Details Date Type Department Care Team (Late Contact Info) Description 07/20/2017 External CPT II STAMP MAKER - [employer] [facility] Social History Tobacco Use [...] Info) Description 03/02/2024 2:45 PM EST Telemedicine [facility] SLEEP MEDICINE [address] [facility] [address] [place] [phone] Rosalino Tom W, ELECTRICIAN HELPER [address] [place] [address] documented as of this encounter Visit Diagnoses Not on filedocumented in this encounter Care Teams Pit Clerk Relationship Specialty Start Date End Date Aba Espinoza MD [address] [facility] [address] [place] [id number] PCP - General Family Medicine 02/17/18 documented as of this encounter
--- OUTSIDE RECORDS SUMMARY | 2024-01-18 14:49 | XMS_ITS | Encounter Summary ---
Author Organization [facility] Address [address] [place] [address] Care Team Providers Care Bit Welder Name Role Phone Aba Espinoza MD Primary Care Provider + [phone] Reason for Visit * Reason Comments Med Refill Encounter Details Date Type Department Care Team (Late st Contact Info) Description 12/11/2019 Refill [facility] CARDIOLOGY [address] [facility] [address] [place] [phone] Ky Morataya MD [address] [facility] [address] [place] [address] Med Refill Social History Tobacco Use Types [...] Info) Description 03/02/2024 2:45 PM EST Telemedicine [facility] SLEEP MEDICINE [address] [address] [place] [address] Rosalino Tom, SERVER CASHIER [address] [place] [address] documented as of this encounter Visit Diagnoses Not on filedocumented in this encounter Care Teams Bit Welder Relationship Specialty Start Date End Date Aba Espinoza MD [address] [facility] [address] [facility] [address] [place] [id number] PCP - General Family Medicine 02/17/18 documented as of this encounter
--- OUTSIDE RECORDS SUMMARY | 2024-01-18 14:49 | XMS_ITS | Encounter Summary ---
Author Organization [facility] Address [address] [place] [address] Care Team Providers Care Child Care Attendant School Name Role Phone Aba Espinoza MD Primary Care Provider [phone] Reason for Referral * Durable Medical Equipment (Routine) - Closed Specialty Diagnoses / Procedures Referred By Kadie casillas Referred To Contact Diagnoses Obstructive sleep apnea, adult Procedures Detailed AutoPAP Order Heriberto Chaudhary MD [address] [facility] 1, [facility] [address] [place] [address] Phone: tel: fax: [address] [place] [address] Phone: tel: fax: Referral ID Status Reason Start Date Expiration Date Visits Re quested Visits Authorized [id number] Closed 01/06/2021 01/06/2022 1 1 Reason for Visit * Reason Comments Sleeping Problem * Consultation (Routine) - Closed Specialty Diagnoses / Procedures Referred By Kadie casillas Referred To Contact Sleep Medicine Diagnoses Snoring Guero Villalta MD [address] [place] [address] Phone: tel: fax: [facility] [address] [place] [phone] Phone: tel: fax: Referral ID Status Reason Start Date Expiration Date Visits Re quested Visits Authorized [id number] Closed 10/31/2020 10/31/2021 1 1 Encounter Details Date Type Department Care Team (Late st Contact Info) Description 01/06/2021 8:30 AM EST Office Visit [facility] [address] [facility] [address] [place] [address] Heriberto Chaudhary MD [address] [facility] [address], [address] [place] [id number] Snoring (Primary Dx); Obstructive sleep apnea, adult; Cardiomyopathy, unspecified type; Restless legs syndrome (RLS); Class 1 obesity due to excess calories without serious comorbidity with body mass index (BMI) of 33.0 to 33.9 in adult; Parasomnia, unspecified type Social History Tobacco Use Types Packs/Day Years [...] Sign Reading Time Taken Comments Blood Pressure 99/70 01/06/2021 8:31 AM EST Pulse 76 01/06/2021 8:31 AM EST Temperature - - Respiratory Rate - - Oxygen Saturation 96% 01/06/2021 8:31 AM EST Inhaled Oxygen Concentration - - Weight 119 kg (262 lb 6.4 oz) 01/06/2021 8:31 AM EST Height 188 cm (6' 2 ) 01/06/2021 8:31 AM EST Body Mass Index 33.69 01/06/2021 8:31 AM EST documented in this encounter Patient Instructions * Patient Instructions* Heriberto Chaudhary MD - 01/06/2021 8:30 AM EST Images from the original note were not included. Restless Legs Syndrome Restless legs syndrome is a condition that causes uncomfortable feelings or sensations in the legs,especially while sitting or lying down. The sensations usually cause an overwhelming urge to move the legs. The arms can also sometimes be affected. The condition can range from mild to severe. The symptoms often interfere with a person's ability to sleep. What are the causes? The cause of this condition is not known. What increases the risk? The following factors may make you more likely to develop this condition: ?? Being older than 50. ?? . ?? Being a woman. In general, the condition is more common in women than in men. ?? A family history of the condition. ?? Having iron deficiency. ?? Overuse of caffeine, nicotine, or alcohol. ?? Certain medical conditions, such as kidney disease, Parkinson's disease, or nerve damage. ?? Certain medicines, such as those for high blood pressure, nausea, colds, allergies, depression, and some heart conditions. What are the signs or symptoms? The main symptom of this condition is uncomfortable sensations in the legs, such as: ?? Pulling. ?? Tingling. ?? Prickling. ?? Throbbing. ?? Crawling. ?? Burning. Usually, the sensations: ?? Affect both sides of the body. ?? Are worse when you sit or lie down. ?? Are worse at night. These may wake you up or make it difficult to fall asleep. ?? Make you have a strong urge to move your legs. ?? Are temporarily relieved by moving your legs. The arms can also be affected, but this is rare. People who have this condition often have tiredness during the day because of their lack of sleep at night. How is this diagnosed? This condition may be diagnosed based on: ?? Your symptoms. ?? Blood tests. In some cases, you may be monitored in a sleep lab by a specialist (a sleep study). This can detectany disruptions in your sleep. How is this treated? This condition is treated by managing the symptoms. This may include: ?? Lifestyle changes, such as exercising, using relaxation techniques, and avoiding caffeine, alcohol, or tobacco. ?? Medicines. Anti-seizure medicines may be tried first. Follow these instructions at home: General instructions ?? Take [id number]-[id number] and prescription medicines only as told by your health care provider. ?? Use methods to help relieve the uncomfortable sensations, such as: ? Massaging your legs. ? Walking or stretching. ? Taking a cold or hot bath. ?? Keep all follow-up visits as told by your health care provider. This is important. Lifestyle ?? Practice good sleep habits. For example, go to bed and get up at the same time every day. Most adults should get 7-9 hours of sleep each night. ?? Exercise regularly. Try to get at least 30 minutes of exercise most days of the week. ?? Practice ways of relaxing, such as yoga or meditation. ?? Avoid caffeine and alcohol. ?? Do not use any products that contain nicotine or tobacco, such as cigarettes and e-cigarettes. If you need help quitting, ask your health care provider. Contact a health care provider if: ?? Your symptoms get worse or they do not improve with treatment. Summary ?? Restless legs syndrome is a condition that causes uncomfortable feelings or sensations in the legs, especially while sitting or lying down. ?? The symptoms often interfere with a person's ability to sleep. ?? This condition is treated by managing the symptoms. You may need to make lifestyle changes or take medicines. This information is not intended to replace advice given to you by your health care provider. Make sure you discuss any questions you have with your health care provider. Document Revised: 03/21/2020 Document Reviewed: 02/20/2018 [employer] Patient Education ?? 2020 [employer] Sleep Apnea Sleep apnea is a condition in which breathing pauses or becomes shallow during sleep. Episodes of sleep apnea usually last 10 seconds or longer, and they may occur as many as 20 times an hour. Sleep apnea disrupts your sleep and keeps your body from getting the rest that it needs. This condition can increase your risk of certain health problems, including: ?? Heart attack. ?? Stroke. ?? Obesity. ?? Diabetes. ?? Heart failure. ?? Irregular heartbeat. What are the causes? There are three kinds of sleep apnea: ?? Obstructive sleep apnea. This kind is caused by a blocked or collapsed airway. ?? Central sleep apnea. This kind happens when the part of the brain that controls breathing does not send the correct signals to the muscles that control breathing. ?? Mixed sleep apnea. This is a combination of obstructive and central sleep apnea. The most common cause of this condition is a collapsed or blocked airway. An airway can collapse orbecome blocked if: ?? Your throat muscles are abnormally relaxed. ?? Your tongue and tonsils are larger than normal. ?? You are overweight. ?? Your airway is smaller than normal. What increases the risk? You are more likely to develop this condition if you: ?? Are overweight. ?? Smoke. ?? Have a smaller than normal airway. ?? Are elderly. ?? Are male. ?? Drink alcohol. ?? Take sedatives or tranquilizers. ?? Have a family history of sleep apnea. What are the signs or symptoms? Symptoms of this condition include: ?? Trouble staying asleep. ?? Daytime sleepiness and tiredness. ?? Irritability. ?? Loud snoring. ?? Morning headaches. ?? Trouble concentrating. ?? Forgetfulness. ?? Decreased interest in sex. ?? Unexplained sleepiness. ?? Mood swings. ?? Personality changes. ?? Feelings of depression. ?? Waking up often during the night to urinate. ?? Dry mouth. ?? Sore throat. How is this diagnosed? This condition may be diagnosed with: ?? A medical history. ?? A physical exam. ?? A series of tests that are done while you are sleeping (sleep study). These tests are usually done in a sleep lab, but they may also be done at home. How is this treated? Treatment for this condition aims to restore normal breathing and to ease symptoms during sleep. Itmay involve managing health issues that can affect breathing, such as high blood pressure or obesity. Treatment may include: ?? Sleeping on your side. ?? Using a decongestant if you have nasal congestion. ?? Avoiding the use of depressants, including alcohol, sedatives, and narcotics. ?? Losing weight if you are overweight. ?? Making changes to your diet. ?? Quitting smoking. ?? Using a device to open your airway while you sleep, such as: ? An oral appliance. This is a custom-made mouthpiece that shifts your lower jaw forward. ? A continuous positive airway pressure (CPAP) device. This device blows air through a mask when you breathe out (exhale). ? A nasal expiratory positive airway pressure (EPAP) device. This device has valves that you put into each nostril. ? A bi-level positive airway pressure (BPAP) device. This device blows air through a mask when you breathe in (inhale) and breathe out (exhale). ?? Having surgery if other treatments do not work. During surgery, excess tissue is removed to create a wider airway. It is important to get treatment for sleep apnea. Without treatment, this condition can lead to: ?? High blood pressure. ?? Coronary artery disease. ?? In men, an inability to achieve or maintain an erection (impotence). ?? Reduced thinking abilities. Follow these instructions at home: Lifestyle ?? Make any lifestyle changes that your health care provider recommends. ?? Eat a healthy, well-balanced diet. ?? Take steps to lose weight if you are overweight. ?? Avoid using depressants, including alcohol, sedatives, and narcotics. ?? Do not use any products that contain nicotine or tobacco, such as cigarettes, e-cigarettes, and chewing tobacco. If you need help quitting, ask your health care provider. General instructions ?? Take vegh-sbi-flbosnd and prescription medicines only as told by your health care provider. ?? If you were given a device to open your airway while you sleep, use it only as told by your health care provider. ?? If you are having surgery, make sure to tell your health care provider you have sleep apnea. Youmay need to bring your device with you. ?? Keep all follow-up visits as told by your health care provider. This is important. Contact a health care provider if: ?? The device that you received to open your airway during sleep is uncomfortable or does not seem to be working. ?? Your symptoms do not improve. ?? Your symptoms get worse. Get help right away if: ?? You develop: ? Chest pain. ? Shortness of breath. ? Discomfort in your back, arms, or stomach. ?? You have: ? Trouble speaking. ? Weakness on one side of your body. ? Drooping in your face. These symptoms may represent a serious problem that is an emergency. Do not wait to see if the symptoms will go away. Get medical help right away. Call your local emergency services (911 in the [place] Do not drive yourself to the hospital. Summary ?? Sleep apnea is a condition in which breathing pauses or becomes shallow during sleep. ?? The most common cause is a collapsed or blocked airway. ?? The goal of treatment is to restore normal breathing and to ease symptoms during sleep. This information is not intended to replace advice given to you by your health care provider. Make sure you discuss any questions you have with your health care provider. Document Revised: 07/18/2019 Document Reviewed: 09/26/2018 [employer] Patient Education ?? 2020 [employer] documented in this encounter Progress Notes * Heriberto Chaudhary MD - 01/06/2021 8:30 AM EST Chief Complaint Snoring and obstructive sleep apnea Subjective Dane Ray presents to [facility] for evaluation snoring andobstructive sleep apnea. He is referred by Dr. Villalta at [facility]. His local barrel and receiver aligner is Dr. Morataya. His primary care physician is Dr. Espinoza. He is seen in person in the sleep clinic. History of Present Illness Patient complains of being restless at night. He acts out sometimes at night. He has been told thathe snores loudly and awakens at least twice during the night. He sometimes has problems getting back to sleep. He had snoring noted for 20 years and apneas also noted for 20 years. He denies awakening gasping for breath. He is not rested on arising in the morning. He has a morning headache 2 days/week. He had a home sleep test to fall being evaluated at [facility] and was found to have moderate obstructive sleep apnea. He is not been started on therapy. He says his weight has been stable for the past 6 months. He has occasional kicking of his legs at night. Says he is has neuropathy. He denies having chronicpain that keeps him awake. He describes acting out dreams . He says this occurs maybe once per month. He moves in bed but has not gotten out of bed. He may remember the dreams. He has been noticing these for about 5 years. He did fall out of bed on one occasion 3 months ago. He goes to bed about 9:30 PM till 11 PM. He will fall asleep in 30 to 90 minutes. He awakens twice during the night. He thinks he gets 7 to 8 hours of sleep but is not rested. He has had hypertensionknown for 20 years and diabetes known for 20 years. He has a history of cardiomyopathy. His ejection fraction earlier this year was 21%. Allergies: Without Habits: Smoking: He smoked 3 packs/day for up to 40 years but says he quit in 2017. Caffeine: He has 2 cups of coffee and 3-4 eden each day. Alcohol: He says he will have a sixpack of beer about every third night. Medical illnesses: He has had a history of arrhythmias, congestive heart failure, arthritis, COPD, diabetes, restless leg syndrome. Medications:allopurinol (ZYLOPRIM) 100 MG tablet aspirin 81 MG chewable tablet BD Pen Needle Dori 2nd Gen 32G X 4 MM misc carvedilol (COREG) 3.125 MG tablet empagliflozin (Jardiance) 25 MG tablet tablet escitalopram (LEXAPRO) 20 MG tablet glipiZIDE (GLUCOTROL) 5 MG tablet magnesium oxide (MAG-OX) 400 MG tablet metFORMIN (GLUCOPHAGE) 1000 MG tablet sacubitril-valsartan (Entresto) 24-26 MG tablet simvastatin (ZOCOR) 40 MG tablet spironolactone (ALDACTONE) 25 MG tablet naproxen sodium (ALEVE) 220 MG tablet nitroglycerin (NITROLINGUAL) 0.4 MG/SPRAY spray rOPINIRole (Requip) 0.5 MG tablet Surgeries: Had wisdom teeth extraction and a defibrillator implanted Family history: Positive for diabetes, heart disease, stroke, obesity, Review of systems: Is positive for appetite change, weight change, nasal congestion, dental problems, hearing loss, rhinorrhea, sneezing, eye itching, visual disturbance, chest tightness, cough, chest pain, leg swelling, diarrhea, heat intolerance, decreased libido, pain, joint swelling, neck stiffness, dizziness, lightheadedness, weakness, easy bruising, behavioral problems, confusion, decreasedconcentration, sleep disturbance. Other systems reviewed and negative. [place] score is 6/24 Objective Vital Signs: BP 99/70 Pulse 76 Ht 188 cm (74 ) Wt 119 kg (262 lb 6.4 oz) SpO2 96% BMI 33.69 kg/m?? Physical Exam patient appears to be awake and alert. He does not appear to be in acute respiratory distress. He is normocephalic. He has Mallampati class II anatomy. Lungs are clear. Cardiac exam revealed normal S1 and S2. Extremities showed no edema. Result Review : Patient had home sleep testing to [facility] on September 30. He was found to have respiratory event index of 26 consistent with moderate obstructive sleep apnea. He spent 214 minutes in the desaturated state Assessment and Plan Diagnoses and all orders for this visit: 1. Snoring (Primary) 2. Obstructive sleep apnea, adult - Detailed AutoPAP Order 3. Cardiomyopathy, unspecified type (HCC) 4. Restless legs syndrome (RLS) - rOPINIRole (Requip) 0.5 MG tablet; Take 1 tablet by mouth Every Night. Take 1 hour before bedtime. Dispense: 30 tablet; Refill: 2 5. Class 1 obesity due to excess calories without serious comorbidity with body mass index (BMI) of33.0 to 33.9 in adult 6. Parasomnia, unspecified type Patient does have moderate obstructive sleep apnea. We have discussed potential therapies includingCPAP, weight control, oral appliance, and surgery. He is willing to try CPAP. We will place orders for this. With his cardiomyopathy we will watch carefully if he has treatment emergent central apneas. He had only a few central events on his home sleep test. We discussed. Long-term consequences of untreated obstructive sleep apnea. These include hypertension, diabetes, heart disease, stroke, and dementia. He is encouraged to achieve ideal body weight. He is encouraged to avoid alcohol and sedatives close to bedtime. He is encouraged to practice lateral position sleep. We will plan to see him back in 2 months and we can then download his machine to make sure it is being effective. If he tolerates it well he may also need to have overnight oximetry to be certain we are correcting his nocturnal hypoxemia. Patient also has a history of kicking his legs at night and having difficulty to sleep sometimes. We will try him on ropinirole 0.5 mg taken 1 hour before bedtime. Patient also says he sometimes actsout dreams. 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 These events did not improve with treatment of his obstructive sleep apnea. He may need to have a polysomnogram to see if can observe theseevents. These issues may need to be addressed further on his return. I spent 45 minutes caring for Dane on this date of service. This time includes time spent by me in the following activities:reviewing tests, obtaining and/or reviewing a separately obtained history, performing a medically appropriate examination and/or evaluation , counseling and educating the patie nt/family/caregiver, ordering medications, tests, or procedures and documenting information in the medical record Follow Up Return in about 2 months (around 03/08/2021). Patient was given instructions and counseling regarding his condition or for health maintenance advice. Please see specific information pulled into the AVS if appropriate. Heriberto Chaudhary MD [facility] Sleep Medicine Pulmonary and Critical Care Medicine documented in this encounter Plan of Treatment Upcoming Encounters Date Type Department Care Team (Late st Contact Info) Description 03/02/2024 2:45 PM EST Telemedicine [facility] [address] [facility] [address] [place] [id number] Rosalino Tom, SALES REPRESENT[employer]IVE [employer] [address] [place] [address] documented as of this encounter Visit Diagnoses Diagnosis Snoring- Primary Other dyspnea and respiratory abnormality Obstructive sleep apnea, adult Cardiomyopathy, unspecified type Restless legs syndrome (RLS) Class 1 obesity due to excess calories without serious comorbidity with body mass index (BMI) of 33.0 to 33.9 in adult Parasomnia, unspecified type documented in this encounter Care Teams Child Care Attendant School Relationship Specialty Start Date End Date Aba Espinoza MD [address] [facility] [address] [place] [id number] PCP - General Family Medicine 02/17/18 documented as of this encounter
--- OUTSIDE RECORDS SUMMARY | 2024-01-18 14:49 | XMS_ITS | Encounter Summary ---
Author Organization [facility] Address [address] [place] [address] Care Team Providers Care Gas Derrick Operator Name Role Phone Aba Espinoza MD Primary Care Provider + [phone] Reason for Visit * Reason Comments Ischemic heart disease Shortness of Breath Encounter Details Date Type Department Care Team (Late st Contact Info) Description 11/13/2019 1:30 PM EDT Office Visit [facility] [address] [facility] [address] [place] [address] Ky Morataya MD [address] [facility] [address] [place] [address] Ischemic heart disease (Primary Dx); Cardiomyopathy, unspecified [...] Sign Reading Time Taken Comments Blood Pressure 116/68 11/13/2019 1:16 PM EDT Pulse 81 11/13/2019 1:16 PM EDT Temperature - - Respiratory Rate - - Oxygen Saturation - - Inhaled Oxygen Concentration - - Weight 118 kg (260 lb) 11/13/2019 1:16 PM EDT Height 190.5 cm (6' 3 ) 11/13/2019 1:16 PM EDT Body Mass Index 32.5 11/13/2019 1:16 PM EDT documented in this encounter Progress Notes * Ky Morataya MD - 11/13/2019 1:30 PM EDT Subjective: Encounter Date:11/13/2019 Patient ID: Dane Ray is a 69 y.o. 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 ?? PHYSICIAN: Aba Espinoza MD REMOTE GLOVE FACTORY SEWER: Steve Valentino MD HEART FAILURE/TRANSPLANT GLOVE FACTORY SEWER:??Liss Acevedo MD ([facility]) CARDIOTHORACIC SURGEON: Surya Lopez MD; Dr. Bird at [facility] SPEECH COMMUNICATION INSTRUCTOR: Fili Sanchez MD Chief Complaint: Chief Complaint Patient presents with ??? Ischemic heart disease ??? Shortness of Breath Problem List: 1. Coronary artery disease/ischemic cardiomyopathy: a. Remote??exercise stress test x 6: Negative per patient-data deficit, in [place] b. Echocardiogram, 07/13/2016; moderately enlarged left atrium, [...] biatrial enlargement f. Medtronic ICD model number [id number] implanted at [facility], 12/06/2016?? g. Echocardiogram,??06/30/2017, [facility]: LV severely dilated, grade 2 LV??diastolic??dysfunction, EF??0.15, no LV thrombus, LA mildly dilated, aortic valve exhibits sclerosis h. Echocardiogram, December 2017 at [facility]; EF 0.15 per patient report, minute ventilation test acceptable-data deficit?? i. CCS??class I chest discomfort/NYHA class II dyspnea with exertion, October 2019 with abnormal echocardiogram at [facility] (LVEF 0.20), July 2019 2. Occasional PVCs 3. Type 2 diabetes mellitus, hemoglobin A1c 7% 4. Hypertension 5. Hyperlipidemia 6. Former??tobacco use; on Chantix, quit 08/13/2016 7. Mild-moderate??obesity; BMI 32.50 8. Anxiety 9. Recent fall with left rib fracture - data deficit, July 2018. 10. Surgical history: a. C b. BiV ICD, November 2016 No Known Allergies Current Outpatient Medications: ??? aspirin 81 MG chewable tablet, Chew 1 tablet Daily., Disp: 30 tablet, Rfl: 12 ??? carvedilol (COREG) 3.125 MG tablet, Take 1 tablet by mouth 2 (Two) Times a Day With Meals. (Patient taking differently: Take 6.25 mg by mouth 2 (Two) Times a Day With Meals.), Disp: 60 tablet, Rfl: 0 ??? ENTRESTO 24-26 MG tablet, TAKE 1 TABLET EVERY 12 HOURS, Disp: 180 tablet, Rfl: 3 ??? escitalopram [...] PAIN., Disp: 4.9 g, Rfl: 2 ??? simvastatin (ZOCOR) 40 MG tablet, Take [...] 12 ??? torsemide (DEMADEX) 20 MG tablet, TAKE 1/2 TO 1 TABLET DAILY NEEDED. (NEED LABS FOR FURTHER REFILLS), Disp: 45 tablet, Rfl: 0 History of Present Illness: Patient has telephone visit today after a 14-month hiatus. Since he waslast seen he has been doing well overall. He is staying safe and sheltered from the pandemic. He has been seeing Dr. Vu in [facility] recently for his advanced ischemic cardiomyopathy. He has also been seeing Dr. Sanchez for his diabetes mellitis. He has already received the influenza immunization this fall. He is active and asymptomatic on a daily basis. He has had no interim ER visits, hospitalizations, serious illnesses, or surgeries. Patient otherwise denies chest pain, severe shortness of breath, PND, edema, palpitations, syncope or presyncope at this time on limited activity. ROS Obtained and negative except as outlined in problem list and HPI. Procedures Objective: Vitals: 11/13/19 1316 BP: 116/68 BP Location: Left arm Patient Position: Sitting Pulse: 81 Weight: 118 kg (260 lb) Height: 190.5 cm (75 ) Body mass index is 32.5 kg/m??. Last weight: 267 lbs. Physical Exam not able to be performed due to telephone visit due to coronavirus. Lab Review: Reviewed with patient by letter: Lab Results Component Value Date GLU 214 (H) 08/01/2019 BUN 26 (H) 08/01/2019 CREATININE 1.50 (H) 08/01/2019 EGFRIFNONA 75 07/06/2016 EGFRIFAFRI 56 08/01/2019 BCR 13.0 07/06/2016 NA 137 08/01/2019 K 4.8 08/01/2019 CL 99 08/01/2019 MG 1.9 08/01/2019 CO2 27 08/01/2019 CALCIUM 9.5 08/01/2019 ALBUMIN 4.5 08/01/2019 AST 20 08/01/2019 ALT 19 08/01/2019 Lab Results Component Value Date WBC 8.71 08/01/2019 HGB 12.9 (L) 08/01/2019 HCT 39.3 08/01/2019 MCV 102.3 (H) 08/01/2019 PLT 213 08/01/2019 Echocardiogram, 08/01/2019: LVEF 0.22 AICD interrogation nominal, 08/01/2019 This patient has consented to a telehealth visit via telephone. The visit was scheduled as a telephone visit to comply with patient safety concerns in accordance with CDC recommendations. All vitals recorded within this visit are reported by the patient. I spent 25 minutes in total including but not limited to the 10 minutes spent in direct conversation with this patient. Assessment: Overall continued acceptable course with no new interim cardiopulmonary complaints with acceptable functional status. We will defer additional diagnostic or therapeutic intervention from a cardiac perspective at this time. He will discuss with his flat bed knitter substituting Farxiga for glipizide. Diagnosis Plan 1. Ischemic heart disease No recurrent angina pectoris or CHF on current activity schedule; continue current treatment. 2. Cardiomyopathy, unspecified type (CMS/HCC) Continue current treatment; may be a candidate for Farxiga. 3. Essential hypertension Acceptable controlled; Continue current treatment. 4. Dyslipidemia No data to review; continue simvastatin. Plan: 1. Patient to continue current medications and close follow up with the above providers. 2. Tentative cardiology follow up in October 2020 or patient may return sooner PRN. Scribed for Ky Morataya MD by Gracie Ma. 11/13/2019 13:35 EDT I, Ky Morataya MD, [facility], personally performed the services described in this documentation as scribed by the above named individual in my presence, and it is both accurate and complete. At 13:35EDT on 11/13/2019 documented in this encounter Plan of Treatment Upcoming Encounters Date Type Department Care Team (Late st Contact Info) Description 03/02/2024 2:45 PM EST Telemedicine [facility] SLEEP MEDICINE [address] [facility] [address] [place] [phone] Rosalino Tom, BOILER ENGINEER [address] [place] [address] documented as of this encounter Visit Diagnoses Diagnosis Ischemic heart disease- Primary Other specified forms of chronic ischemic heart disease Cardiomyopathy, unspecified type Essential hypertension Unspecified essential hypertension Dyslipidemia Other and unspecified hyperlipidemia documented in this encounter Care Teams Gas Derrick Operator Relationship Specialty Start Date End Date Aba Espinoza MD [address] [facility] [address] [facility] [address] [place] [address] PCP - General Family Medicine 02/17/18 documented as of this encounter
--- OUTSIDE RECORDS SUMMARY | 2024-01-18 14:49 | XMS_ITS | Encounter Summary ---
Author Organization [facility] Address [address] [place] [address] Care Team Providers Care President Practicing Urologist Name Role Phone Aba Espinoza MD Primary Care Provider + [phone] Encounter Details Date Type Department Care Team (Late st Contact Info) Description 11/21/2019 Telephone [facility] CARDIOLOGY [address] [facility] [address] [place] [phone] Ky Morataya MD [address] [facility] [address] [place] [address] Social History Tobacco Use Types Packs/Day Years [...] encounter Miscellaneous Notes * Telephone Encounter - Abril Singleton RN - 11/30/2019 5:01 PM EDT Patient called back, LVM. Returned pt's call. No answer, LVM for return call. * Telephone Encounter - Abril Singleton RN - 11/21/2019 2:01 PM EDT [employer] sent fax stating that patient had received RXs for Entresto and losartan. I called the patient and he stated that he is not taking losartan, that he is taking Entresto. Patient stated that he used to take valsartan. I asked patient if he was still taking valsartan and Entresto and patient was unsure. Patient was driving and could not verify medications at this time. Advised pt to call me back when he got home to verify which medications he was taking. Pt verbalizes understanding and agreeable to plan. documented in this encounter Plan of Treatment Upcoming Encounters Date Type Department Care Team (Late st Contact Info) Description 03/02/2024 2:45 PM EST Telemedicine [facility] SLEEP MEDICINE [address] [facility] [address] [place] [phone] Rosalino Tom, LUNCHROOM OPERATOR [address] [place] [address] documented as of this encounter Visit Diagnoses Not on filedocumented in this encounter Care Teams President Practicing Urologist Relationship Specialty Start Date End Date Aba Espinoza MD [address] [facility] [address] [facility] [place] [address] PCP - General Family Medicine 02/17/18 documented as of this encounter
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
--- OUTSIDE RECORDS SUMMARY | 2024-01-18 14:49 | XMS_ITS | Encounter Summary ---
Author Organization [facility] Address [address] [place] [address] Care Team Providers Care Cardiovascular Invasive Specialist Name Role Phone Alexandr Quan MD Primary Care Provider Reason for Visit * Reason Onset Date Comments Med Refill 10/27/2017 Encounter Details Date Type Department Care Team (Late st Contact Info) Description 10/27/2017 Refill [facility] CARDIOLOGY [address] [facility] [address] [place] [address] Ky Morataya MD [address] [facility] [address] [place] [address] Med Refill Social History Tobacco Use Types [...] as of this encounter Progress Notes * Jerrell Avilez RN - 10/28/2017 3:05 PM EDTAddended by: JERRELL AVILEZ on: 10/28/2017 03:05 PM Modules accepted: Orders documented in this encounter Plan of Treatment Upcoming Encounters Date Type Department Care Team (Late st Contact Info) Description 03/02/2024 2:45 PM EST Telemedicine [facility] SLEEP MEDICINE [address] [facility] [address] [place] [address] Rosalino Tom, OUTSIDE SALES MANAGER [address] [place] [address] documented as of this encounter Visit Diagnoses Not on filedocumented in this encounter Care Teams Cardiovascular Invasive Specialist Relationship Specialty Start Date End Date Alexandr Quan MD PCP - General Family Medicine 07/20/17 02/16/18 documented as of this encounter
--- OUTSIDE RECORDS SUMMARY | 2024-01-18 14:49 | XMS_ITS | Encounter Summary ---
Author Organization [facility] Address [address] [place] [address] Care Team Providers Care Business Services Intern Name Role Phone Aba Espinoza MD Primary Care Provider + [phone] Reason for Visit * Reason Comments Med Refill Encounter Details Date Type Department Care Team (Late st Contact Info) Description 03/31/2018 Refill [facility] CARDIOLOGY [address] [facility] [address] [place] [phone] Ky Morataya MD [address] [facility] [address] [place] [address] Med Refill Social History Tobacco Use Types [...] Info) Description 03/02/2024 2:45 PM EST Telemedicine [facility] SLEEP MEDICINE [address] [facility] [address] [place] [address] Rosalino Tom, SEAM STAY STITCHER [address] [place] [address] documented as of this encounter Visit Diagnoses Not on filedocumented in this encounter Care Teams Business Services Intern Relationship Specialty Start Date End Date Aba Espinoza MD [address] [facility] [address] [facility] [address] [place] [phone] PCP - General Family Medicine 02/17/18 documented as of this encounter
--- OUTSIDE RECORDS SUMMARY | 2024-01-18 14:49 | XMS_ITS | Encounter Summary ---
Author Organization [facility] Address [address] [place] [address] Care Team Providers Care Fancy Wire Drawer Name Role Phone Alexandr Quan MD Primary Care Provider Reason for Visit * Reason Onset Date Comments Med Refill 08/05/2017 Encounter Details Date Type Department Care Team (Late st Contact Info) Description 08/05/2017 Refill [facility] CARDIOLOGY [address] [facility] [address] [place] [address] Glendy Gaviria, RN Med Refill Social History Tobacco Use Types [...] Info) Description 03/02/2024 2:45 PM EST Telemedicine [facility] SLEEP MEDICINE [address] [facility] [address] [place] [address] Rosalino Tom, SUPERVISOR CELLARS [address] [place] [address] documented as of this encounter Visit Diagnoses Not on filedocumented in this encounter Care Teams Fancy Wire Drawer Relationship Specialty Start Date End Date Alexandr Quan MD PCP - General Family Medicine 07/20/17 02/16/18 documented as of this encounter
--- OUTSIDE RECORDS SUMMARY | 2024-01-18 14:49 | XMS_ITS | Encounter Summary ---
Author Organization [facility] Address [address] [place] [address] Care Team Providers Care Communications Attendant Name Role Phone Aba Espinoza MD Primary Care Provider [phone] Encounter Details Date Type Department Care Team (Late Contact Info) Description 04/07/2018 External CPT II ENGINEERING LABORATORY TECHNICIAN - [employer] Social History Tobacco Use [...] Info) Description 03/02/2024 2:45 PM EST Telemedicine [facility] SLEEP MEDICINE [address] [facility] [address] [place] [phone] Rosalino Tom W, RADIAL DRILL OPERATOR [address] [place] [address] documented as of this encounter Visit Diagnoses Not on filedocumented in this encounter Care Teams Communications Attendant Relationship Specialty Start Date End Date Aba Espinoza MD [address] [facility] [address] [place] [address] PCP - General Family Medicine 02/17/18 documented as of this encounter
--- OUTSIDE RECORDS SUMMARY | 2024-01-18 14:49 | XMS_ITS | Encounter Summary ---
Author Organization [facility] Address [address] [place] [address] Care Team Providers Care Auto Locator Name Role Phone Aba Espinoza MD Primary Care Provider + [phone] Reason for Visit * Reason Comments Med Refill Encounter Details Date Type Department Care Team (Late st Contact Info) Description 01/31/2019 Refill [facility] CARDIOLOGY [address] [facility] [address] [place] [phone] Ky Morataya MD [address] [facility] [address] [place] [address] Med Refill Social History Tobacco Use Types [...] Info) Description 03/02/2024 2:45 PM EST Telemedicine [facility] SLEEP MEDICINE [address] [facility] [address] [place] [address] Rosalino Tom, OPERATING ROOM SURGICAL TECHNICIAN [address] [place] [address] documented as of this encounter Visit Diagnoses Not on filedocumented in this encounter Care Teams Auto Locator Relationship Specialty Start Date End Date Aba Espinoza MD [address] [facility] [address] [facility] [address] [place] [id number] PCP - General Family Medicine 02/17/18 documented as of this encounter
--- OUTSIDE RECORDS SUMMARY | 2024-01-18 14:49 | XMS_ITS | Encounter Summary ---
Author Organization [facility] Address [address] [place] [address] Care Team Providers Care Hand Launderer Name Role Phone Aba Espinoza MD Primary Care Provider + [phone] Reason for Visit * Auth/Cert Specialty Diagnoses / Procedures Referred By Kadie casillas Referred To Contact Diagnoses Procedures HI COLONOSCOPY FLX DX W/COLLJ SPEC WHEN PFRMD COLONOSCOPY Referral ID Status Reason Start Date Expiration Date Visits Re quested Visits Authorized [id number] 1 1 Encounter Details Date Type Department Care Team (Late st Contact Info) Description 05/04/2021 10:18 AM EDT Anesthesia Event [facility] [address] [place] [phone] Beto Alanis MD [address] [place] [address] Anesthesia Record Procedure Summary Procedure Name Responsible Anesthesiologist Anesthesia Start Time Anesthesia Stop Time COLONOSCOPY Beto Alanis MD 05/04/21 1018 1042 Events Date Time Event Comment 05/04/2021 0919 0948 AN Equip Check 1018 An Start The patient was reevaluated immediately before moderate or deep sedation use and before anesthesia induction. 1018 An Start Data 1021 An Induction 1040 an stop data 1042 An Stop 1042 Handoff to RN The following has been completed: 1. Identification of Patient, holt family member(s) or patient surrogate 2. Identification of the responsible Practitioner (primary service) 3. Discussion of the pertinent/attainable medical history 4. Discussion of the surgical/procedure course (procedure, reason for surgery, procedure performed) 5. Intraoperative anesthetic management and issue/concerns to include things such as airway, hemodynamics, narcotic, sedation level and paralytic management and intravenous fluids/blood products and urine output during the procedure 6. Expectations/Plans for the early post-procedure period to include things such as anticipated course (anticipatory guidance), complications, need for laboratory or ECG and medication administration 7. Opportunity for questions and acknowledgment of understanding of report from the receiving PACU/ICU team Meds Name Total midazolam (VERSED) injection 0.5 mg 2 mg fentaNYL (SUBLIMAZE) 0.05 mg/mL 100 mcg lactated ringers infusion 300 mL * Agents Name O2 N2O Air * Blood No blood administrations on file. Lines, Drains, and Airways Type Details Placement Removal Peripheral IV Placement Date: 04/15 03/07; Placement Time: 919; Catheter Size: 20 G; Orientation: Posterior, Right; Location: Forearm; Site Prep: Chlorhexidine; Inserted by: Caty James RN; Insertion Attempts: 1; Patient Tolerance: Tolerated well; Removal Date: 05/04/21; Removal Time: 112105/04/21919 by Tiana Diana RN 05/04/211121 by Beto Magaña, TONNY documented in this encounter Social History Tobacco Use Types Packs/Day Years [...] on file documented as of this encounter OR Notes * Anesthesia Postprocedure Evaluation - Frederick Kern CRNA - 05/04/2021 10:47 AM EDT Patient: Dane Ray Procedure Summary Date: 05/04/21 [facility] / [facility] Anesthesia Start: 1018 Anesthesia Stop: 1041 Procedure: COLONOSCOPY (N/A ) Diagnosis: Surgeons: Liban Pierce MD Provider: Beto Alanis MD Anesthesia Type: MAC ASA Status: 4 Anesthesia Type: MAC Vitals Vitals Value Taken Time BP 111/59 05/04/21 1045 Temp Pulse 53 05/04/21 1045 Resp SpO2 91 % 05/04/21 1046 Vitals shown include unvalidated device data. Post Anesthesia Care and Evaluation Patient location during evaluation: PACU Patient participation: complete - patient participated Level of consciousness: awake and alert Pain management: adequate Airway patency: patent Anesthetic complications: No anesthetic complications PONV Status: none Cardiovascular status: hemodynamically stable and acceptable Respiratory status: nonlabored ventilation, acceptable and nasal cannula Hydration status: acceptable * Anesthesia Preprocedure Evaluation - Beto Alanis MD - 05/04/2021 9:13 AM EDT Anesthesia Evaluation Patient summary reviewed and Nursing notes reviewed Airway Mallampati: II TM distance: >3 FB Neck ROM: full No difficulty expected Dental - normal exam Pulmonary - normal exam (+) a smoker (quit 15 yrs ago) Former, COPD, asthma,sleep apnea, Cardiovascular - normal exam (+) pacemaker pacemaker, hypertension, CAD, hyperlipidemia, ROS comment: Echo 07/04: EF 20% LHC 06/30: L main 40%, LAD 80% w/ collateral flow to RCA, left circumflex 80%, RCA 100% w/ collaterals Neuro/Psych- negative ROS GI/Hepatic/Renal/Endo (+) obesity, renal disease CRI, diabetes mellitus, Musculoskeletal Abdominal - normal exam Bowel sounds: normal. 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 Plan discussed with MASTER TECHNICIAN. CODE STATUS: documented in this encounter Plan of Treatment Upcoming Encounters Date Type Department Care Team (Late st Contact Info) Description 03/02/2024 2:45 PM EST Telemedicine [facility] SLEEP MEDICINE [address] [facility] [address] [place] [address] Rosalino Tom, WALLCOVERING HANGER [address] [place] [address] documented as of this encounter Visit Diagnoses Not on filedocumented in this encounter Administered Medications Inactive Administered Medications - up to 3 most recent administrations Medication Order MAR Action Action Date Dose Rate Site fentaNYL citrate (PF) (SUBLIMAZE) injection Intravenous, As Needed, Starting on Tue05/04/21 at 1021 Given 05/04/2021 10:37 AM EDT 25 mcg Given 05/04/2021 10:32 AM EDT 25 mcg Given 05/04/2021 10:21 AM EDT 50 mcg lactated ringers infusion Intravenous, Continuous PRN, Starting on Tue05/04/21 at 1018 New Bag 05/04/2021 10:18 AM EDT midazolam (VERSED) injection 0.5 mg 0.5 mg, Intravenous, Every 10 Minutes PRN, Anxiety prophylaxis, Pre-op comfort, Starting on Tue05/04/21 at 0927, For 2 doses, May repeat dose in 10 minutes one time then contact provider for additional orders. {LUCRECIA} Given 05/04/2021 10:21 AM EDT 2 mg documented in this encounter Care Teams Hand Launderer Relationship Specialty Start Date End Date Aba Espinoza MD [address] [facility] [address] [place] [address] PCP - General Family Medicine 02/17/18 documented as of this encounter
--- OUTSIDE RECORDS SUMMARY | 2024-01-18 14:49 | XMS_ITS | Encounter Summary ---
Author Organization [facility] Address [address] [place] [address] Care Team Providers Care Special Events Coordinator Name Role Phone Aba Espinoza MD Primary Care Provider + [phone] Reason for Visit * Reason Comments Med Refill Encounter Details Date Type Department Care Team (Late st Contact Info) Description 03/23/2021 Refill [facility] SLEEP MEDICINE [address] [facility] [address] [place] [address] Heriberto Chaudhary MD [address] [place] [address] 1, [address] [place] [address] Restless legs syndrome (RLS) Social History Tobacco [...] encounter Miscellaneous Notes * Telephone Encounter - Becki Reynolds - 03/25/2021 9:11 AM EST Advised patient that rx was escribed documented in this encounter Plan of Treatment Upcoming Encounters Date Type Department Care Team (Late st Contact Info) Description 03/02/2024 2:45 PM EST Telemedicine [facility] SLEEP MEDICINE [address] [facility] [address] [place] [address] Rosalino Tom, ADVERTISING LAYOUT WORKER [address] [place] [address] documented as of this encounter Visit Diagnoses Diagnosis Restless legs syndrome (RLS) documented in this encounter Care Teams Special Events Coordinator Relationship Specialty Start Date End Date Aba Espinoza MD [address] [facility] [address] [place] [address] PCP - General Family Medicine 02/17/18 documented as of this encounter
--- OUTSIDE RECORDS SUMMARY | 2024-01-18 14:49 | XMS_ITS | Encounter Summary ---
Author Organization [facility] Address [address] [place] [address] Care Team Providers Care Packager Head Name Role Phone Aba Espinoza MD Primary Care Provider + [phone] Reason for Visit * Reason Comments Med Refill Encounter Details Date Type Department Care Team (Late st Contact Info) Description 04/17/2019 Refill [facility] CARDIOLOGY [address] [facility] [address] [place] [phone] Ky Morataya MD [address] [facility] [address] [place] [address] Med Refill Social History Tobacco Use Types [...] Info) Description 03/02/2024 2:45 PM EST Telemedicine [facility] SLEEP MEDICINE [address] [facility] [address] [place] [address] Rosalino Tom, CLOTH FRAMER [address] [place] [address] documented as of this encounter Visit Diagnoses Not on filedocumented in this encounter Care Teams Packager Head Relationship Specialty Start Date End Date Aab Espinoza MD [address] [facility] [address] [facility] [address] [place] [phone] PCP - General Family Medicine 02/17/18 documented as of this encounter
--- OUTSIDE RECORDS SUMMARY | 2024-01-18 14:49 | XMS_ITS | Encounter Summary ---
Author Organization [facility] Address [address] [place] [address] Care Team Providers Care Director Of Engineering Name Role Phone Aba Espinoza MD Primary Care Provider + [phone] Reason for Visit * Reason Comments Med Refill Encounter Details Date Type Department Care Team (Late st Contact Info) Description 03/13/2020 Refill [facility] CARDIOLOGY [address] [facility] [address] [place] [phone] Ky Morataya MD [address] [facility] [address] [place] [address] Med Refill Social History Tobacco Use Types [...] Description 03/02/2024 2:45 PM EST Telemedicine [facility] SLEEP MEDICINE [address] [facility] [address] [place] [address] Rosalino Tom, GAS PLUMBING INSPECTOR [address] [place] [address] documented as of this encounter Visit Diagnoses Not on filedocumented in this encounter Care Teams Director Of Engineering Relationship Specialty Start Date End Date Aba Espinoza MD [address] [facility] [address] [facility] 2 [place] [address] PCP - General Family Medicine 02/17/18 documented as of this encounter
--- OUTSIDE RECORDS SUMMARY | 2024-01-18 14:49 | XMS_ITS | Encounter Summary ---
Author Organization [facility] Address [address] [place] [address] Care Team Providers Care Huc Ob Name Role Phone Aba Espinoza MD Primary Care Provider + [phone] Reason for Visit * Reason Comments Med Refill Encounter Details Date Type Department Care Team (Late st Contact Info) Description 04/15/2020 Refill [facility] CARDIOLOGY [address] [facility] [address] [place] [phone] Carmelina Huang, SINGLE STROKE PREFORMER [address] [facility] [address] [address] [place] [address] Med Refill Social History Tobacco Use Types [...] Info) Description 03/02/2024 2:45 PM EST Telemedicine [facility] SLEEP MEDICINE [address] [facility] [address] [place] [address] Rosalino Tom, SINGLE STROKE PREFORMER [address] [place] [address] documented as of this encounter Visit Diagnoses Not on filedocumented in this encounter Care Teams Huc Ob Relationship Specialty Start Date End Date Aba Espinoza MD [address] [facility] [address] [facility] 2 [place] [address] PCP - General Family Medicine 02/17/18 documented as of this encounter
--- OUTSIDE RECORDS SUMMARY | 2024-01-18 14:49 | XMS_ITS | Encounter Summary ---
Author Organization [facility] Address [address] [place] [address] Care Team Providers Care Midwife Name Role Phone Aba Espinoza MD Primary Care Provider + [phone] Reason for Visit * Reason Onset Date Comments Med Refill 04/10/2018 Encounter Details Date Type Department Care Team (Late st Contact Info) Description 04/10/2018 Refill [facility] CARDIOLOGY [address] [facility] [address] [place] [phone] Ky Morataya MD [address] [facility] [address] [place] [address] Med Refill Social History Tobacco Use Types [...] [facility] SLEEP MEDICINE [address] [facility] [address] [place] [phone] Rosalino Tom, PROMOTIONS TEAM LEADER [address] [place] [address] documented as of this encounter Visit Diagnoses Not on filedocumented in this encounter Care Teams Midwife Relationship Specialty Start Date End Date Aba Espinoza MD 12[address] [facility] [address] [facility] 2 [place] [address] PCP - General Family Medicine 02/17/18 documented as of this encounter
--- OUTSIDE RECORDS SUMMARY | 2024-01-18 14:49 | XMS_ITS | Encounter Summary ---
Author Organization [facility] Address [address] [place] [address] Care Team Providers Care Registered Dental Assistant Name Role Phone Aba Espinoza MD Primary Care Provider + [phone] Reason for Visit * Reason Comments Med Refill Encounter Details Date Type Department Care Team (Late st Contact Info) Description 06/04/2019 Refill [facility] CARDIOLOGY [address] [facility] 400 [place] [phone] Ky Morataya MD [address] [facility] [address] [place] [address] Med Refill Social History Tobacco Use Types [...] [facility] SLEEP MEDICINE [address] [facility] [address] [place] [address] Rosalino Tom, FLANGING ROLL OPERATOR [address] [place] [address] documented as of this encounter Visit Diagnoses Not on filedocumented in this encounter Care Teams Registered Dental Assistant Relationship Specialty Start Date End Date Aba Espinoza MD [address] [facility] [address] [facility] 2 [place] [phone] PCP - General Family Medicine 02/17/18 documented as of this encounter
--- OUTSIDE RECORDS SUMMARY | 2024-01-18 14:49 | XMS_ITS | Encounter Summary ---
Author Organization [facility] Address [address] [place] [address] Care Team Providers Care Mine Equipment Design Engineer Name Role Phone Aba Espinoza MD Primary Care Provider + [phone] Reason for Visit * Reason Comments Congestive Heart Failure Encounter Details Date Type Department Care Team (Late st Contact Info) Description 02/17/2018 1:15 PM EST Office Visit [facility] CARDIOLOGY [address] [place] [address] Ky Morataya MD [address] [facility] [address] [place] [address] Cardiomyopathy, unspecified type (Primary Dx); Systolic congestive heart failure, unspecified HF chronicity; Essential hypertension; Mixed hyperlipidemia Social History Tobacco Use Types Packs/Day Years [...] Sign Reading Time Taken Comments Blood Pressure 93/64 02/17/2018 1:16 PM EST Pulse 78 02/17/2018 1:16 PM EST Temperature - - Respiratory Rate - - Oxygen Saturation - - Inhaled Oxygen Concentration - - Weight 125 kg (276 lb 6.4 oz) 02/17/2018 1:13 PM EST Height - - Body Mass Index 34.55 07/20/2017 1:46 PM EDT documented in this encounter Progress Notes * Ky Morataya MD - 02/17/2018 1:15 PM EST Subjective: Encounter Date:02/17/2018 Patient ID: Dane Ray is a 67 y.o. 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 ?? PHYSICIAN: Aba Espinoza MD REMOTE PHOTOTYPESETTER OPERATOR: Steve Valentino MD HEART FAILURE/TRANSPLANT PHOTOTYPESETTER OPERATOR:??Liss Acevedo MD ([facility]) CARDIOTHORACIC SURGEON: Surya Lopez MD; Dr. Bird at [facility] . Chief Complaint: Chief Complaint Patient presents with ??? Congestive Heart Failure Problem List: 1. Coronary artery disease/ischemic cardiomyopathy: a. Remote exercise stress test x 6: Negative per patient-data deficit, in [place] b. Echocardiogram 07/13/16; moderately enlarged left atrium, moderately dilated LV with severely reduced LV systolic function, LVEF 0.20-0.25 with multiple omental wall motion abnormalities, mild MR and TR, RVSP 38 mmHg c. Exercise stress test 06/30/16; abnormal, myocardial perfusion imaging abnormal, overall LV systolic function is abnormal with regional wall motion abnormalities, LVEF 0.18 d. Right and Left heart catheterization 07/05/16; left main 40% distal,??LAD 80% mid with collateralflow to the RCA, left circumflex 80% plaque, RCA 100% mid with collaterals from the left and right,LVEF 0.10, mixed ischemia/nonischemic cardiomyopathy, 2 vessel CAD, not a candidate for CABG at this time after cardiac viability testing and might need an LVAD and/or heart transplant, transplant specialist at e. Cardiac MRI 07/28/16; LVEF 0.17, mixed viability area in the mid to distal LAD territory and nonviable areas of the RCA territory, RV normal in size, RVEF 34%, biatrial enlargement f. Medtronic ICD model number [id number] implanted at [facility] 12/06/16 g. Echocardiogram, 06/30/2017, [facility]: LV severely dilated, grade 2 LV diastolic dysfunction, EF 0.15, no LV thrombus, LA mildly dilated, aortic valve exhibits sclerosis h. Echocardiogram December 2017 at [facility]; EF 15% per patient report, minute ventilation test acceptable-data deficit i. CCS class I chest discomfort/NYHA class II dyspnea with exertion 2. Occasional PVCs 3. Type 2 diabetes mellitus, hemoglobin A1c 7% 4. Hypertension 5. Hyperlipidemia 6. Former??tobacco use; on Chantix, quit 08/13/16 7. Mild-moderate??obesity; BMI 34.4 8. Anxiety 9. Surgical history: a. LHC b. BiV ICD November 2016 ?? No Known Allergies Current Outpatient Medications: ??? [...] Day Before Meals., Disp: , Rfl: ??? metFORMIN (GLUCOPHAGE) 1000 [...] ??? torsemide (DEMADEX) 20 MG tablet, Take 1 tablet by mouth Daily. Take one half to one whole tablet as needed daily, Disp: 90 tablet, Rfl: 3 ?? Magnesium 400mg bid HISTORY OF PRESENT ILLNESS: Patient is here for a 7 month follow-up. His echocardiograms in June and December 2017 at the [facility] demonstrated EF of 0.15 per patient report. He was seen in December 2017 at the [facility] with recommendations to defer LVAD currently, but this may be an option in the future, possibly 5 years from now. Magnesium 400 mg twice a day was added. He has some shortness of breath on exer tion but overall continues most of his activities without difficulties. He states that he is a little bit more fatigued than he used to be. If he overdoes it on one day, it will take him 1-2 days to recover. He denies any anginal type chest discomfort, increased edema, palpitations, presyncope, or syncope. His blood pressure is chronically low, and he measures this daily. He had questions whether he can try some cardiopulmonary rehabilitation by swimming. He also had a minute ventilation stress study at [facility] in December 2017 that was borderline acceptable; data deficit. Review of Systems Constitution: Positive for weight gain. Respiratory: Positive for shortness of breath. Hematologic/Lymphatic: Bruises/bleeds easily. Obtained and otherwise negative except as outlined in problem list and HPI. Procedures Objective: Vitals: 02/17/18 1313 02/17/18 1316 BP: 99/69 93/64 BP Location: Left arm Left arm Patient Position: Sitting Standing Pulse: 78 78 Weight: 125 kg (276 lb 6.4 oz) Body mass index is 34.55 kg/m??. Last weight July 2017 was 275 pounds Physical Exam Constitutional: He is oriented to person, place, and time. He appears well- developed and well-nourished. Neck: No JVD present. Carotid bruit is not present. No thyromegaly present. Cardiovascular: Regular rhythm, S1 normal and S2 normal. Exam reveals distant heart sounds. Exam reveals no gallop, no S3 and no friction rub. Murmur heard. High-pitched blowing holosystolic murmur is present with a grade of 2/6 at the apex. Pulses: Dorsalis pedis pulses are 1+ on the right side, and 1+ on the left side. Posterior tibial pulses are 1+ on the right side, and 1+ on the left side. Pulmonary/Chest: Effort normal. He has decreased breath sounds. He has no wheezes. He has no rhonchi. He has no rales. Abdominal: Soft. He exhibits no mass. There [...] Value Date GLUCOSE 106 (H) 07/06/2016 BUN 13 07/06/2016 CREATININE 1.00 07/06/2016 EGFRIFNONA 75 07/06/2016 BCR 13.0 07/06/2016 CO2 29.0 07/06/2016 CALCIUM 9.2 07/06/2016 ALBUMIN 3.70 07/06/2016 AST 27 07/06/2016 ALT 25 07/06/2016 Lab Results Component Value Date WBC 7.17 07/05/2016 HGB 14.1 07/05/2016 HCT 44.7 07/05/2016 MCV 100.2 (H) 07/05/2016 PLT 269 07/05/2016 Medtronic PACEART ICD interrogation, December 2017: Battery voltage 3.02 V Assessment: Overall continued acceptable course with no interim cardiopulmonary complaints with fair but acceptable functional status. We will defer additional diagnostic or therapeutic intervention from a cardiac perspective at this time. His echocardiogram at [facility] in December 2017 demonstrated EFof 0.15 per patient's report. He has marginal blood pressure but is tolerating the Entresto 24/26 mg twice a day. The patient will eventually need an LVAD but is surprisingly functional and asymptomatic most of the time. He also had a minute ventilation test that was acceptable. Diagnosis Plan 1. Cardiomyopathy, unspecified type (CMS/HCC) EF 0.15 per patient report in December 2017 2. Systolic congestive heart failure, unspecified HF chronicity (CMS/[facility]) EF 0.15 3. Essential hypertension Controlled 4. Mixed hyperlipidemia No new labs to review Plan: 1. Patient to continue current medications and close follow up with the above providers. 2. Tentative cardiology follow up in August 2018 or patient may return sooner PRN. Scribed for Ky Morataya MD by Carmelina Huang, DIAMOND ASSORTER. 02/17/2018 1:48 PM I, Ky Morataya MD, [facility], personally performed the services described in this documentation as scribed by the above named individual in my presence, and it is both accurate and complete. At 2:07 PM on 02/17/2018 documented in this encounter Plan of Treatment Upcoming Encounters Date Type Department Care Team (Late st Contact Info) Description 03/02/2024 2:45 PM EST Telemedicine [facility] SLEEP MEDICINE [address] [facility] [address] [place] [phone] Rosalino Tom, DIAMOND ASSORTER [address] [place] [address] documented as of this encounter Visit Diagnoses Diagnosis Cardiomyopathy, unspecified type- Primary Systolic congestive heart failure, unspecified HF chronicity Essential hypertension Unspecified essential hypertension Mixed hyperlipidemia documented in this encounter Care Teams Mine Equipment Design Engineer Relationship Specialty Start Date End Date Aba Espinoza MD [address] [facility] [address] [place] [address] PCP - General Family Medicine 02/17/18 documented as of this encounter
--- OUTSIDE RECORDS SUMMARY | 2024-01-18 14:50 | XMS_ITS | Encounter Summary ---
Author Organization [facility] Address [address] [place] [address] Care Team Providers Care Motor Equipment Lieutenant Name Role Phone Aba Espinoza MD Primary Care Provider + [phone] Reason for Visit * Reason Onset Date Comments Med Refill 12/30/2016 Encounter Details Date Type Department Care Team (Late st Contact Info) Description 12/30/2016 Refill [facility] [address] [facility] [address] [place] [address] Laron Mcclelland RN Med Refill Social History Tobacco Use Types Packs/Day Years Used Date Smoking Tobacco: Former Cigarettes Q uit: 08/13/2016 Smokeless Tobacco: Never Alcohol Use Standard Drinks/Week Comments Yes 12 [...] 03/02/2024 2:45 PM EST Telemedicine [facility] SLEEP [facility] [address] [facility] [address] [place] [address] Rosalino Tom, PARKING ASSISTANT [address] [place] [address] documented as of this encounter Visit Diagnoses Not on filedocumented in this encounter Care Teams Motor Equipment Lieutenant Relationship Specialty Start Date End Date Aba Espinoza MD [address] [place] [facility] [address] [place] [address] PCP - General Family Medicine 07/05/16 07/19/17 documented as of this encounter
--- OUTSIDE RECORDS SUMMARY | 2024-01-18 14:50 | XMS_ITS | Encounter Summary ---
Author Organization [facility] Address [address] [place] [address] Care Team Providers Care Washing Machine Installer Name Role Phone Aba Espinoza MD Primary Care Provider + [phone] Encounter Details Date Type Department Care Team (Late st Contact Info) Description 04/29/2017 Telephone [facility] [address] [facility] [address] [place] [address] Josephine Gonzalez RN Social History Tobacco Use Types Packs/Day Years [...] encounter Miscellaneous Notes * Telephone Encounter - Josephine Live RN - 04/29/2017 3:04 PM EDT Ino Bonds, pharmacist from [facility], ([phone]) called and states patient came in to refill Torsemide. Patient reports to pharmacist that [facility] advised him to take Torsemide two times daily due to the build up of fluid he has. Pharmacy called primary care who had patient brittny lower dose than what our records currently show. Our records show Torsemide 20 mg, take one half to one whole tablet daily as needed. Patient asked pharmacist to contact Dr. Morataya's office for refills. Advised pharmacy will check with Dr. Morataya and call them back. Chart review of [facility] records show Dr. Acevedo did advise to double but with stipulations.Called patient to get more info, his phone kept disconnecting. Will wait for his return call. documented in this encounter Plan of Treatment Upcoming Encounters Date Type Department Care Team (Late st Contact Info) Description 03/02/2024 2:45 PM EST Telemedicine [facility] SLEEP [facility]ICINE [address] [facility] [address] [place] [address] Rosalino Tom, COMMERCIAL BAKING TEACHER [address] [place] [address] documented as of this encounter Visit Diagnoses Not on filedocumented in this encounter Care Teams Washing Machine Installer Relationship Specialty Start Date End Date Aba Espinoza MD [address] [facility] [address] [facility] [address] [place] [address] PCP - General Family Medicine 07/05/16 07/19/17 documented as of this encounter
--- OUTSIDE RECORDS SUMMARY | 2024-01-18 14:50 | XMS_ITS | Encounter Summary ---
[facility] Organization [facility] Address [address] [place] [address] Care Team Providers Care Qa Tester Name Role Phone Aba Espinoza MD Primary Care Provider [phone] Reason for Visit * Auth/Cert Specialty Diagnoses / Procedures Referred By Kadie casillas Referred To Contact Diagnoses Abnormal stress test Abnormal stress test [R94.39] Procedures Right and Left Heart Cath Referral ID Status Reason Start Date Expiration Date Visits Re quested Visits Authorized [id number] 1 1 Encounter Details Date Type Department Care Team (Late st Contact Info) Description 07/05/2016 6:05 PM EDT - 07/05/2016 7:05 PM EDT Surgery [facility] [address] [place] [address] Steve Valentino MD [address] [place] [address] Right and Left Heart Cath Social History Tobacco Use Types Packs/Day Years Used Date Smoking Tobacco: Every Day Cigarettes Tobacco Cessation:Ready to Q uit: Yes; Counseling Given: Yes Alcohol Use Standard Drinks/Week Comments Yes 12 [...] Sign Reading Time Taken Comments Blood Pressure 73/50 07/05/2016 7:00 PM EDT Pulse 74 07/05/2016 7:00 PM EDT Temperature 35.9 ??C (96.7 ??F) 07/05/2016 1:14 PM ED T Respiratory Rate 18 07/05/2016 4:54 PM EDT Oxygen Saturation 93% 07/05/2016 7:00 PM EDT Inhaled Oxygen Concentration - - Weight 103 kg (226 lb 13.7 oz) 07/05/2016 1:14 P M EDT Height 190.5 cm (6' 3 ) 07/05/2016 1:14 PM EDT Body Mass Index 27.89 07/07/2016 11:58 AM EDT documented in this encounter Discharge Summaries * Karan Carter PA - 07/07/2016 2:49 PM EDT Date of Discharge: 07/07/2016 [facility] Date of Admit: 07/05/2016 Aba Espinoza MD Discharge Diagnosis:Active Problems: Abnormal stress test CAD (coronary artery disease) Systolic CHF Hospital Course: Mr. Ray is a very pleasant 65-year-old male who was admitted to [facility] on 07/05/16 secondary to an abnormal stress test. He underwent heart catheterization which revealed multivessel CAD. His EF is estimated to be approximately 10%. Dr. Lopez of cardiothoracic surgery was consulted and felt his best option would be to follow up with cardiothoracic surgery at the [facility]. These arrangements are currently being made. Mr. Ray is being provided a lifevest prior to discharge. Today he is denying any complaints and is therefore felt ready for discharge. Procedures Performed Procedure(s): Right and Left Heart Cath Consults No orders found from 06/06/2016 to 07/06/2016. Pertinent Test Results: angiography: Multivessel CAD, EF~10% . Discharge Physical Exam: General Appearance No acute distress Neck No adenopathy, supple, trachea midline, no JVD Lungs Clear to auscultation,respirations regular, even and unlabored Heart Regular rhythm and normal rate, normal S1 and S2, no murmur, no gallop, no rub, no click Chest wall No abnormalities observed Abdomen Normal bowel sounds, no masses, no hepatomegaly, soft Extremities Moves all extremities well, no edema, no cyanosis, no redness Neurological Alert and oriented x 3 Discharge Medications Dane Ray Home Medication Instructions BLESSING:[id number] Printed on:07/07/16 5038 Medication Information aspirin 81 MG chewable tablet Chew 1 tablet Daily. CALCIUM-MAGNESIUM PO Take 1 tablet by mouth Daily. carvedilol (COREG) 3.125 MG tablet Take 3.125 mg by mouth 2 (Two) Times a Day With Meals. escitalopram (LEXAPRO) 20 MG tablet Take 20 mg by mouth Daily. furosemide (LASIX) 40 MG tablet Take 40 mg by mouth Daily. glipiZIDE (GLUCOTROL) 5 MG tablet Take 5 mg by mouth 2 (Two) Times a Day Before Meals. metFORMIN (GLUCOPHAGE) 1000 MG tablet Take 1,000 mg by mouth 2 (Two) Times a Day With Meals. potassium chloride (K-DUR) 10 MEQ CR tablet Take 10 mEq by mouth Daily. sacubitril-valsartan (ENTRESTO) 24-26 MG tablet Take 1 tablet by mouth 2 (Two) Times a Day. simvastatin (ZOCOR) 40 MG tablet Take 40 mg by mouth Every Night. SITagliptin (JANUVIA) 50 MG tablet Take 50 mg by mouth Daily. spironolactone (ALDACTONE) 25 MG tablet Take 1 tablet by mouth Daily. Discharge Diet: cardiac/diabetic Activity at Discharge: as tolerated Discharge disposition: home Condition on Discharge: stable Follow-up Appointments No future appointments. Additional Instructions for the Follow-ups that You Need to Schedule Discharge Follow-up with Specified Provider As directed To: CTS at [facility] as soon as possible Home with JERALD Lees 07/07/16 2:52 PM Cosigned by Steve Valentino MD at 07/07/2016 8:39 PM EDT documented in this encounter Discharge Instructions * Appointments* Mer Bashir - 07/07/2016 3:03 PM EDT You have an appointment with Shon Bird MD on June@14:30. Call them if you have any questions. [address] [place] [id number] * Attachments The following attachments cannot be sent through Care Everywhere. * STEPS TO QUIT SMOKING (SYRIAC) * CHEST PAIN OBSERVATION (SYRIAC) documented in this encounter Medications at Time of Discharge aspirin 81 MG chewable tablet Chew 1 tablet Daily. 30 tablet 12 07/07/2016 3:28 PM EDT 07/07/2016 escitalopram (LEXAPRO) 20 MG tablet Take 20 mg by mouth Daily. glipiZIDE (GLUCOTROL) 5 MG tablet Take 5 mg by mouth Daily. metFORMIN (GLUCOPHAGE) 1000 MG tablet Take 1,000 mg by mouth 2 (Two) Times a Day With Meals. spironolactone (ALDACTONE) 25 MG tablet Take 1 tablet by mouth Daily. 30 tablet 12 07/07/2016 3:28 PM EDT 07/07/2016 CALCIUM-MAGNESIUM PO Take 1 tablet by mouth Daily. 10/13/2016 carvedilol (COREG) 3.125 MG tablet Take 3.125 mg by mouth 2 (Two) Times a Day With Meals. 12/30/2016 furosemide (LASIX) 40 MG tablet Take 40 mg by mouth Daily. 10/13/2016 potassium chloride (K-DUR) 10 MEQ CR tablet Take 10 mEq by mouth Daily. 07/18/2017 sacubitril-valsar mistry (ENTRESTO) 24-26 MG tablet Take 1 tablet by mouth 2 (Two) Times a Day. 10/13/2016 simvastatin (ZOCOR) 40 MG tablet Take 40 mg by mouth Every Night. 07/18/2017 SITagliptin (JANUVIA) 50 MG tablet Take 50 mg by mouth Daily. 11/19/2020 documented as of this encounter Progress Notes * Laura Hogan, RD - 07/07/2016 12:15 PM EDT Malnutrition Severity Assessment Patient Name: Dane Ray Date of : 1950 Admit Date: 07/05/2016 Patient meets criteria for : Mild malnutrition (pt meets criteria for mild, chronic malnutrition based on energy intake and wt loss) Comments: Malnutrition Type: Chronic Illness Malnutrition Malnutrition Type (last 8 hours) Malnutrition Severity Assessment 07/07/16 1207 Malnutrition Severity Assessment Malnutrition Type Chronic Illness Malnutrition Weight Status Most Recent Value Weight Loss Mild (>5% / 3 mo) Energy Intake Status Most Recent Value Energy Intake Mod (<75% / > or equal to 1 mo) Electronically signed by: Laura Hogan RD 07/07/16 12:15 PM Cosigned by Steve Valentino MD at 07/12/2016 12:00 PM EDT Associated attestation - Steve Valentino MD - 07/12/2016 12:00 PM EDT I have reviewed the documentation above and agree. Steve Valentino MD 07/12/16 11:00 AM * Karan Carter PA - 07/07/2016 11:17 AM EDT [facility] LOS: 2 days Patient Care Team: Aba Espinoza MD as PCP - General (Family Medicine) Subjective Patient Denies: Cp, sob, palps Vital Signs Temp: [97.4 ??F (36.3 ??C)-98.1 ??F (36.7 ??C)] 97.9 ??F (36.6 ??C) Heart Rate: [78-82] 78 Resp: [16-18] 18 BP: (79-95)/(51-73) 89/62 Intake/Output Summary (Last 24 hours) at 07/07/16 1118 Last data filed at 07/07/16 0904 Gross per 24 hour Intake 940 ml Output 600 ml Net 340 ml I/O this shift: In: 240 [P.O.:240] Out: - Physical Exam: General Appearance: Alert, cooperative, in no acute distress Neck: No adenopathy, supple, trachea midline, no JVD Lungs: Clear to auscultation,respirations regular, even and unlabored Heart: Regular rhythm and normal rate, normal S1 and S2, no murmur, no gallop, no rub, no click Chest Wall: No abnormalities observed Abdomen: Normal bowel sounds, no masses, no organomegaly, soft non-tender, non- distended, no guarding, no rebound tenderness Extremities: Moves all extremities well, no edema, no cyanosis, no redness Pulses: Pulses palpable and equal bilaterally Results Review: I reviewed the patient's new clinical results. WBC WBC Date/Time Value Ref Range Status 07/05/2016 1319 7.17 3.50 - 10.80 10*3/mm3 Final HGB Hemoglobin Date/Time Value Ref Range Status 07/05/2016 1319 14.1 13.1 - 17.5 g/dL Final HCT Hematocrit Date/Time Value Ref Range Status 07/05/2016 1319 44.7 38.9 - 50.9 % Final Platlets No results found for: LABPLAT Sodium Sodium Date/Time Value Ref Range Status 07/06/2016 1453 138 132 - 146 mmol/L Final 07/05/2016 1319 139 132 - 146 mmol/L Final Potassium Potassium Date/Time Value Ref Range Status 07/06/2016 1453 4.3 3.5 - 5.5 mmol/L Final 07/05/2016 1319 4.5 3.5 - 5.5 mmol/L Final Chloride Chloride Date/Time Value Ref Range Status 07/06/2016 1453 108 99 - 109 mmol/L Final 07/05/2016 1319 107 99 - 109 mmol/L Final BicarbonateNo results found for: PLASMABICARB BUN BUN Date/Time Value Ref Range Status 07/06/2016 1453 13 9 - 23 mg/dL Final 07/05/2016 1319 15 9 - 23 mg/dL Final Creatinine Creatinine Date/Time Value Ref Range Status 07/06/2016 1453 1.00 0.60 - 1.30 mg/dL Final 07/05/2016 1319 0.90 0.60 - 1.30 mg/dL Final Calcium Calcium Date/Time Value Ref Range Status 07/06/2016 1453 9.2 8.7 - 10.4 mg/dL Final 07/05/2016 1319 9.3 8.7 - 10.4 mg/dL Final Mag No results found for: MG PT/INR: No results found for: PROTIME/No results found for: INR Troponin I No results found for: CKTOTAL, CKMB, CKMBINDEX, TROPONINI, TROPONINT aspirin 81 mg Oral Daily carvedilol 3.125 mg Oral BID With Meals escitalopram 20 mg Oral Daily furosemide 40 mg Oral Daily glipiZIDE 5 mg Oral BID AC insulin lispro 0-7 Units Subcutaneous 4x Daily With Meals & Nightly Pharmacy Meds to Bed Consult Does not apply Daily potassium chloride 10 mEq Oral Daily sacubitril-valsartan 1 tablet Oral Q12H SITagliptin 50 mg Oral Daily spironolactone 25 mg Oral Daily Assessment/Plan Patient Active Problem List Diagnosis Code ??? Abnormal stress test R94.39 ??? CAD (coronary artery disease) I25.10 ??? Systolic CHF I50.20 Home after lifevest placed JERALD Schultz 07/07/16 11:18 AM Cosigned by Steve Valentino MD at 07/07/2016 8:39 PM EDT Associated attestation - Steve Valentino MD - 07/07/2016 8:39 PM EDT I have reviewed the documentation above and agree. * Karan Carter PA - 07/06/2016 11:11 AM EDT [facility] LOS: 1 day Patient Care Team: Aba Espinoza MD as PCP - General (Family Medicine) Subjective Patient Denies: Cp, sob, palps Vital Signs Temp: [96.7 ??F (35.9 ??C)-97.9 ??F (36.6 ??C)] 97.5 ??F (36.4 ??C) Heart Rate: [51-84] 51 Resp: [16-18] 18 BP: (73-97)/(47-79) 89/66 Intake/Output Summary (Last 24 hours) at 07/06/16 1112 Last data filed at 07/06/16 0906 Gross per 24 hour Intake 240 ml Output 800 ml Net -560 ml I/O this shift: In: 240 [P.O.:240] Out: - Physical Exam: General Appearance: Alert, cooperative, in no acute distress Neck: No adenopathy, supple, trachea midline, no JVD Lungs: Clear to auscultation,respirations regular, even and unlabored Heart: Regular rhythm and normal rate, normal S1 and S2, no murmur, no gallop, no rub, no click Chest Wall: No abnormalities observed Abdomen: Normal bowel sounds, no masses, no organomegaly, soft non-tender, non- distended, no guarding, no rebound tenderness Extremities: Moves all extremities well, no edema, no cyanosis, no redness Pulses: Pulses palpable and equal bilaterally Results Review: I reviewed the patient's new clinical results. WBC WBC Date/Time Value Ref Range Status 07/05/2016 1319 7.17 3.50 - 10.80 10*3/mm3 Final HGB Hemoglobin Date/Time Value Ref Range Status 07/05/2016 1319 14.1 13.1 - 17.5 g/dL Final HCT Hematocrit Date/Time Value Ref Range Status 07/05/2016 1319 44.7 38.9 - 50.9 % Final Platlets No results found for: LABPLAT Sodium Sodium Date/Time Value Ref Range Status 07/05/2016 1319 139 132 - 146 mmol/L Final Potassium Potassium Date/Time Value Ref Range Status 07/05/2016 1319 4.5 3.5 - 5.5 mmol/L Final Chloride Chloride Date/Time Value Ref Range Status 07/05/2016 1319 107 99 - 109 mmol/L Final BicarbonateNo results found for: PLASMABICARB BUN BUN Date/Time Value Ref Range Status 07/05/2016 1319 15 9 - 23 mg/dL Final Creatinine Creatinine Date/Time Value Ref Range Status 07/05/2016 1319 0.90 0.60 - 1.30 mg/dL Final Calcium Calcium Date/Time Value Ref Range Status 07/05/2016 1319 9.3 8.7 - 10.4 mg/dL Final Mag No results found for: MG PT/INR: No results found for: PROTIME/No results found for: INR Troponin I No results found for: CKTOTAL, CKMB, CKMBINDEX, TROPONINI, TROPONINT aspirin 81 mg Oral Daily carvedilol 3.125 mg Oral BID With Meals escitalopram 20 mg Oral Daily furosemide 40 mg Oral Daily glipiZIDE 5 mg Oral BID AC insulin lispro 0-7 Units Subcutaneous 4x Daily With Meals & Nightly potassium chloride 10 mEq Oral Daily sacubitril-valsartan 1 tablet Oral Q12H SITagliptin 50 mg Oral Daily spironolactone 25 mg Oral Daily Assessment/Plan Patient Active Problem List Diagnosis Code ??? Abnormal stress test R94.39 ??? CAD (coronary artery disease) I25.10 ??? Systolic CHF I50.20 CTS to see JERALD Schultz 07/06/16 11:12 AM Cosigned by Steve Valentino MD at 07/07/2016 8:39 PM EDT Associated attestation - Steve Valentino MD - 07/07/2016 8:39 PM EDT I have reviewed the documentation above and agree. documented in this encounter Consult Notes * Laura Hogan RD - 07/07/2016 12:11 PM EDTAssociated Order(s): IP CONSULT TO NUTRITION SERVICES Adult Nutrition Assessment/PES Patient Name: Dane Ray Date of : 1950 Admit Date: 07/05/2016 Assessment Date: 07/07/2016 Reason for Assessment 07/07/16 1153 Reason for Assessment Reason For Assessment/Visit nurse/nurse practitioner consult Identified At Risk By Screening Criteria unintentional loss of 10 lbs or more in the past 2 mos Time Spent (min) 30 Cardiac HTN;Dyslipidemia;CAD;CHF Endocrine DM Type 2 Nutrition/Diet History 07/07/16 1156 Nutrition/Diet History Reported/Observed By Family Other Pt sleeping at time of visit. Family reports pt appetite/PO intake very good. PO intake decreased to <75% usual x 2-3 months. Asked for heart healthy nutrition education materials. Anthropometrics 07/07/16 1158 Anthropometrics Height 190.5 cm (75 ) Weight 101 kg (223 lb 1.6 oz) [place] Body Weight (IBW) [place] Body Weight (IBW), Male (kg) 90.45 % [place] Body Weight 112.12 Usual Body Weight (UBW) Usual Body Weight 109 kg (240 lb) 235-240 lb % Usual Body Weight 92.96 Weight Loss 6.804 kg (15 lb) unintentional % Weight Loss 6.25 % Weight Loss Time Frame last 2-3 months Body Mass Index (BMI) BMI (kg/m2) 27.94 Labs/Tests/Procedures/Meds 07/07/16 120 Labs/Tests/Procedures/Meds Labs/Tests Review Reviewed Nutrition Prescription Ordered 07/07/16 120 Nutrition Prescription PO Current PO Diet Regular Common Modifiers Cardiac Evaluation of Received Nutrient/Fluid Intake 07/07/16 1201 PO Evaluation Number of Meals 5 % PO Intake 100 Malnutrition Severity Assessment 07/07/16 120 Malnutrition Severity Assessment Malnutrition Type Chronic Illness Malnutrition Weight Status (Chronic) Weight Loss Mild (>5% / 3 mo) Energy Intake Status (Chronic) Energy Intake Mod (<75% / > or equal to 1 mo) Criteria Met (Must meet criteria for severity in at least 2 of these categories: M Wasting, Fat Loss, Fluid, Secondary Signs, Wt. Status, Intake) Patient meets criteria for Mild malnutrition pt meets criteria for mild, malnutrition based on energy intake and wt loss Problem/Interventions: Problem 1 07/07/16 120 Nutrition Diagnoses Problem 1 Problem 1 Knowledge Deficit Etiology (related to) Medical Diagnosis Cardiac CAD;CHF Signs/Symptoms (evidenced by) Reported Information Deficit Problem 2 07/07/161201 Nutrition Diagnoses Problem 2 Problem 2 Nutrition Appropriate for Condition at this Time Signs/Symptoms (evidenced by) PO Intake Percent (%) intake recorded 100 % Over number of meals 5 Intervention Goal 07/07/16 120 Intervention Goal General Nutrition support treatment;Provide information regarding MNT for treatment/condition PO Maintain intake Nutrition Intervention 07/07/[address]/Tech Action Follow Tx progress;Care plan reviewd Nutrition Prescription 07/07/161202 Nutrition Prescription PO PO Prescription Begin/change diet appropriate for current dx Begin/Change Diet to Regular Common Modifiers Cardiac;Consistent Carbohydrate New PO Prescription Ordered? Yes Education/Evaluation 07/07/161202 Education Education Provided education regarding;Education topics;Advised regarding habits/behavior Provided education regarding Diet rationale Education Topics Cardiac heart health low sodium/fat intake Advised Regarding Habits/Behavior Appropriate portions;Eating out;Food choices;Food prep;Label reading;Seasoning food Monitor/Evaluation Monitor Per protocol;PO intake Comments: Electronically signed by: Laura Hogan RD 07/07/16 12:11 PM * Surya Lopez MD - 07/07/2016 7:08 AM EDT CTS Consult Patient Care Team: Aba Espinoza MD as PCP - General (Family Medicine) Reason for Consult: Evaluate for coronary surgery HPI Patient is a 65 y.o. male presents with some fatigue and increasing shortness of breath. This patient essentially was unaware that he ever had a heart-related medical issue. He is a long-standing diabetic and he is a nonsmoker and he has never had anginal symptoms. He is had some shortness of breath with activity that he says has worsened recently. It is associated with some fatigue but again no chest pain. His also felt like he has had a bronchitis or mild pneumonia that he has been unable to resolve. His family physician sent him to Dr. Valentino for cardiac evaluation and subsequent tests have demonstrated significant coronary artery disease with an ejection fraction of only 10%. There wasno significant associated valvular abnormalities. I have visited the patient last evening and had along discussion with him and his and I will return today to talk further as his daughter is flying in from another state. This time the patient remains pain free and is breathing on labored and is alert and conversant Review of Systems Ocular: Denies blurred vision denies retinal disease denies glaucoma Nose and throat: Denies thyroid disease denies known tracheal malignancy Pulmonary: denies tuberculosis history , positive for recent bronchitis Endocrine: Denies thyroid disease, does have a history of hyperlipidemia positive for diabetes Gastrointestinal: Denies chronic constipation denies chronic diarrhea denies a history of ulcer surgery Neurologic: Denies a history of strokes denies a history of seizures Integument: denies a history of psoriasis or malignant melanoma Psychiatric: Denies a history of psychosis denies a diagnosis of neurolysis positive for anxiety Cardiac: Denies a history of rheumatic fever or palpitations Urologic: Denies a history of nephrolithiasis or hematuria Hematologic: Denies known blood dyscrasias also denies any hemophilia Immunologic: Denies any known immunologic deficiency denies recent steroid usage History Past Medical History: Diagnosis Date ??? Anxiety ??? Diabetes mellitus ??? Hyperlipidemia ??? Hypertension Past Surgical History: Procedure Laterality Date ??? CARDIAC CATHETERIZATION Bilateral 07/05/2016 Procedure: Right and Left Heart Cath; Surgeon: Steve Valentino MD; Location: [facility]; Service: Family History Problem Relation Age of Onset ??? Heart disease Mother ??? Hypertension Mother ??? Stroke Mother ??? Heart disease Father ??? Hypertension Father ??? Diabetes Father Social History Substance Use Topics ??? Smoking status: Current Every Day Smoker Packs/day: 3.00 Types: Cigarettes ??? Smokeless tobacco: None ??? Alcohol use 7.2 oz/week 12 Cans of beer per week Prescriptions Prior to Admission Medication Sig Dispense Refill Last Dose ??? CALCIUM-MAGNESIUM PO Take 1 tablet by mouth Daily. 07/04/2016 at Unknown time ??? carvedilol (COREG) 3.125 MG tablet Take 3.125 mg by mouth 2 (Two) Times a Day With Meals. 07/05/2016 at Unknown time ??? escitalopram (LEXAPRO) 20 MG tablet Take 20 mg by mouth Daily. 07/05/2016 at Unknown time ??? furosemide (LASIX) 40 MG tablet Take 40 mg by mouth Daily. 07/04/2016 at Unknown time ??? glipiZIDE (GLUCOTROL) 5 MG tablet Take 5 mg by mouth 2 (Two) Times a Day Before Meals. 07/04/2016 at Unknown time ??? metFORMIN (GLUCOPHAGE) 1000 MG tablet Take 1,000 mg by mouth 2 (Two) Times a Day With Meals. 07/02/2016 ??? potassium chloride (K-DUR) 10 MEQ CR tablet Take 10 mEq by mouth Daily. 07/04/2016 at Unknown time ??? sacubitril-valsartan (ENTRESTO) 24-26 MG tablet Take 1 tablet by mouth 2 (Two) Times a Day. 07/05/2016 at Unknown time ??? simvastatin (ZOCOR) 40 MG tablet Take 40 mg by mouth Every Night. 07/04/2016 at Unknown time ??? SITagliptin (JANUVIA) 50 MG tablet Take 50 mg by mouth Daily. 07/04/2016 at Unknown time Allergies: Review of patient's allergies indicates no known allergies. Objective Vital Signs Temp: [97.4 ??F (36.3 ??C)-98.1 ??F (36.7 ??C)] 97.4 ??F (36.3 ??C) Heart Rate: [51-82] 80 Resp: [16-18] 16 BP: (79-95)/(51-73) 90/60 Physical Exam:CONSTITUTIONAL: Alert and conversant, in his hospital room EYES: Sclera clean, Anicteric, Pupils equal ENT: No nasal deviation, Trachea midline NECK: No neck masses, Supple LUNGS: No wheezing, Cough, non-congested HEART: No rubs, No murmurs ABDOMEN: Soft, non-distended, No masses, Non tender to palpation NEURO: No motor deficits, No sensory deficits, Cranial Nerves 2 through 12 grossly intact PSYCHIATRIC: Oriented to person, place and time, No memory deficits, Mood appropriate VASCULAR: No carotid bruits, Posterior tibial pulses palpable bilaterally, Femoral pulses palpable and symmetric Data Review: Results from last 7 days Lab Units 07/05/16 1319 WBC 10*3/mm3 7.17 HEMOGLOBIN g/dL 14.1 HEMATOCRIT % 44.7 PLATELETS 10*3/mm3 269 Results from last 7 days Lab Units 07/06/16 1453 SODIUM mmol/L 138 POTASSIUM mmol/L 4.3 CHLORIDE mmol/L 108 TOTAL CO2 mmol/L 29.0 BUN mg/dL 13 CREATININE mg/dL 1.00 GLUCOSE mg/dL 106* CALCIUM mg/dL 9.2 Coagulation: No results found for: INR, APTT Cardiac markers: ABGs: Invalid input(s): PO2, PCO2 Radiology: Imaging Results (last 72 hours) Procedure Component Value Units Date/Time XR Chest 1 View [[id number]] Collected: 07/06/16 1603 Updated: 07/06/16 1619 Narrative: EXAMINATION: XR CHEST 1 VW- 07/06/2016 INDICATION: R94.39-Abnormal result of other cardiovascular function study COMPARISON: NONE FINDINGS: There is a normal cardiac silhouette. There is no pulmonary inflammatory process. There is no mass or effusion. Impression: No active disease. E: 07/06/2016 This report was finalized on 07/06/2016 4:[address] Rodolfo Ruano MD. Assessment: Active Problems: Abnormal stress test CAD (coronary artery disease) Systolic CHF This patient has coronary disease and an ejection fraction of barely 10%. However clinically he does not look like a typical patient with this poor heart function. He does have systolic failure but does not have what appears to be significant diastolic failure. I have discussed with him high risk coronary bypass grafting surgery but there is questions regarding postoperatively if he has heart failure could we placed a left ventricular assist device and/or would he be a transplant candidate. He may be near the upper age limit is otherwise fairly healthy and may very well be a transplant candidate. I have now discussed this with Dr. Valentino on 2 occasions and now with the patient and his wifeon 2 occasions and now with his daughter who is in attendance. It is their feeling they would rather have his coronary surgery at the [facility] so that he would have heart transplant backup readily available and/or ventricular assist device readily available should problems arise. I can concur with their decision I discussed placing a LifeVest with Dr. Valentino and he will make those arrangements. Plan: As stated above Please note that portions of this note were completed with a voice recognition program. Efforts were made to edit the dictations, but occasionally words are mistranscribed. Surya Lopez MD 07/07/16 7:08 AM documented in this encounter Nursing Notes * Gela Soto RN - 07/07/2016 9:29 AM EDT Problem: Patient Care Overview (Adult) Goal: Discharge Needs Assessment Outcome: Ongoing (interventions implemented as appropriate) * Gela Soto RN - 07/07/2016 9:28 AM EDT Problem: Cardiac Output, Decreased (Adult) Goal: Adequate Cardiac Output/Effective Tissue Perfusion Outcome: Ongoing (interventions implemented as appropriate) * Kelly Banks RN - 07/07/2016 3:25 AM EDT Problem: Patient Care Overview (Adult) Goal: Plan of Care Review Outcome: Ongoing (interventions implemented as appropriate) Goal: Adult Individualization and Mutuality Outcome: Ongoing (interventions implemented as appropriate) Goal: Discharge Needs Assessment Outcome: Ongoing (interventions implemented as appropriate) Problem: Cardiac Catheterization with/without PCI (Adult) Goal: Signs and Symptoms of Listed Potential Problems Will be Absent or Manageable (Cardiac Catheterization with/without PCI) Outcome: Ongoing (interventions implemented as appropriate) Problem: Cardiac Output, Decreased (Adult) Goal: Identify Related Risk Factors and Signs and Symptoms Outcome: Outcome(s) achieved Date Met: 07/07/16 Goal: Adequate Cardiac Output/Effective Tissue Perfusion Outcome: Ongoing (interventions implemented as appropriate) * Steve Wooten RN - 07/06/2016 2:31 AM EDT Problem: Cardiac Catheterization with/without PCI (Adult) Goal: Signs and Symptoms of Listed Potential Problems Will be Absent or Manageable (Cardiac Catheterization with/without PCI) Outcome: Ongoing (interventions implemented as appropriate) 07/06/16 0231 Cardiac Catheterization with/without PCI Problems Assessed (Cardiac Catheterization) all Problems Present (Cardiac Catheterization) none * Maria Fernanda Adams, RN - 07/05/2016 1:28 PM EDT Problem: Patient Care Overview (Adult) Goal: Plan of Care Review Outcome: Ongoing (interventions implemented as appropriate) 07/05/16 1327 Coping/Psychosocial Response Interventions Plan Of Care Reviewed With patient;spouse Patient Care Overview Progress progress toward functional goals as expected documented in this encounter Plan of Treatment Upcoming Encounters Date Type Department Care Team (Late st Contact Info) Description 03/02/2024 2:45 PM EST Telemedicine [facility] SLEEP MEDICINE [address] [facility] [address] [place] [id number] Rosalino Tom, COMPLIANCE INTERN [address] [place] [address] documented as of this encounter Procedures Procedure Name Priority Date/Time Associated Diagnosis Comments POCT GLUCOSE FINGERSTICK Routine 07/07/2016 11:43 AM EDT POCT GLUCOSE FINGERSTICK Routine 07/07/2016 7:40 AM EDT POCT GLUCOSE FINGERSTICK Routine 07/06/2016 8:27 PM EDT POCT GLUCOSE FINGERSTICK Routine 07/06/2016 5:00 PM EDT P2Y12 PLATELET INHIBITION Routine 07/06/2016 2:53 PM EDT COMPREHENSIVE METABOLIC PANEL Routine 07/06/2016 2:53 PM EDT XR CHEST 1 VW STAT 07/06/2016 2:48 PM EDT POCT GLUCOSE FINGERSTICK Routine 07/06/2016 11:42 AM EDT POCT GLUCOSE FINGERSTICK Routine 07/06/2016 7:33 AM EDT POCT GLUCOSE FINGERSTICK Routine 07/05/2016 10:40 PM EDT CARDIAC CATHETERIZATION Routine 07/06/19 17 4:51 PM EDT Abnormal stress test CBC (NO DIFF) STAT 07/05/2016 1:19 PM EDT BASIC METABOLIC PANEL STAT 07/05/2016 1:19 PM EDT POCT GLUCOSE FINGERSTICK Routine 07/05/2016 1:14 PM EDT SCANNED - TELEMETRY 07/05/2016 SCANNED - TELEMETRY 07/05/2016 SCANNED - CARDIOLOGY 07/05/2016 documented in this encounter Results * POC Glucose Fingerstick (07/07/2016 11:43 AM EDT) Glucose 127 70 - 130 mg/dL 07/07/2016 11:52 AM EDT [facility] Blood 07/07/2016 11:4 3 AM EDT 07/07/2016 11:52 AM EDT [facility] - 07/07/2016 11:52 AM EDT Meter: [id number] Admission Specialist: [id number] Buddy Montenegro Steve Valentino MD POINT OF CARE TEST ORDERA BLES Final Result Performing Organization Address [facility] Co de Phone Number [facility]
[address] [place] [address], * POC Glucose Fingerstick (07/07/2016 7:40 AM EDT) Glucose 124 70 - 130 mg/dL 07/07/2016 7:46 AM EDT [facility] Blood 07/07/2016 7:40 AM EDT 07/07/2016 7:46 AM EDT [facility] - 07/07/2016 7:46 AM EDT Meter: [id number] Admission Specialist: [id number] Buddy Montenegro Steve Valentino MD POINT OF CARE TEST ORDERA BLES Final Result Performing Organization Address [facility] de Phone Number [facility]
[address] [place] [address], * (ABNORMAL) POC Glucose Fingerstick (07/06/2016 8:27 PM EDT) Glucose 186(H) 70 - 130 mg/dL 07/06/2016 8:28 PM EDT [facility] Blood 07/06/2016 8:27 PM EDT 07/06/2016 8:28 PM EDT [facility] - 07/06/2016 8:28 PM EDT Meter: [id number] Admission Specialist: [id number] Jeff Vega Steve Valentino MD POINT OF CARE TEST ORDERA BLES Final Result Performing Organization Address [facility] de Phone Number [facility]
[address] [place] [address], * POC Glucose Fingerstick (07/06/2016 5:00 PM EDT) Glucose 108 70 - 130 mg/dL 07/06/2016 5:16 PM EDT [facility] Blood 07/06/2016 5:00 PM EDT 07/06/2016 5:16 PM EDT [facility] - 07/06/2016 5:16 PM EDT Meter: [id number] Admission Specialist: [id number] Buddy Montenegro Steve Valentino MD POINT OF CARE TEST ORDERA BLES Final Result Performing Organization Address [facility] Phone Number [facility]
[address] [place] [address], * P2Y12 Platelet Inhibition (07/06/2016 2:53 PM EDT) P2Y12 Reactivity Unit 236 PRU DISK DIFFUSION 07/06/2016 3:45 PM EDT [facility] Blood 07/06/2016 2:53 PM EDT 07/06/2016 3:31 PM EDT [facility] - 07/06/2016 3:45 PM EDT Test results are reported in P2Y12 Reaction Units (PRU). ??This measures the extent of platelet aggregation in the presence of a P2Y12 inhibitor. ??P2Y12 results of less than 208 PRU are associated with expected anti-platelet effect. P2Y12 results of greater than 208 PRU are indicative of a decreased response to P2Y12 inhibitors. ??Pre-surgical P2Y12 values should be greater than 250 PRU to ensure adequate coagulation and prevent bleeding. ??The results of a study performed by the test newspaper vendor are summarized below: % Inhibition Threshold ?PRU Threshold ?JOHNATHAN AUC ? 10% ?259 ?0.91 ? 20% ?237 ?0.93 ? 30% ?214 ?0.95 ? 40% ?187 ?0.97 ? 50% ?159 ?0.98 ? 60% ?131 ?0.99 ? us Tariq MARQUES LAB BLOOD ORDERABLES Final R esult [facility]
[address] [place] [address], * (ABNORMAL) Comprehensive Metabolic Panel (07/06/2016 2:53 PM EDT) [facility] Signature Glucose 106(H) 70 - 100 mg/dL 07/06/2016 4:14 PM EDT [facility] BUN 13 9 - 23 mg/dL 07/06/2016 4:14 PM EDT [facility] Creatinine 1.00 0.60 - 1.30 mg/dL 07/06/2016 4:14 PM EDT [facility] Sodium 138 132 - 146 mmol/L 07/06/2016 4:14 PM EDT [facility] Potassium 4.3 3.5 - 5.5 mmol/L 07/06/2016 4:14 PM EDT [facility] Chloride 108 99 - 109 mmol/L 07/06/2016 4:14 PM EDT [facility] CO2 29.0 20.0 - 31.0 mmol/L 07/06/2016 4:14 PM EDT [facility] Calcium 9.2 8.7 - 10.4 mg/dL 07/06/2016 4:14 PM EDT [facility] Total Protein 7.3 5.7 - 8.2 g/dL 07/06/2016 4:14 PM EDT [facility] Albumin 3.70 3.20 - 4.80 g/dL 07/06/2016 4:14 PM EDT [facility] ALT (SGPT) 25 7 - 40 U/L 07/06/2016 4:14 PM EDT [facility] AST (SGOT) 27 0 - 33 U/L 07/06/2016 4:14 PM EDT [facility] Alkaline Phosphatase 63 25 - 100 U/L 07/06/2016 4:14 PM EDT [facility] Total Bilirubin 0.5 0.3 - 1.2 mg/dL 07/06/2016 4:14 PM EDT [facility] eGFR Non Amer 75 >60 mL/min/1.7 3 07/06/2016 4:14 PM EDT [facility] Globulin 3.6 gm/dL 07/06/2016 4:14 PM EDT [facility] A/G Ratio 1.0(L) 1.5 - 2.5 g/dL 07/06/2016 4:14 PM EDT [facility] BUN/Creatinine Ratio 13.0 7.0 - 25.0 07/06/2016 4:14 PM EDT [facility] Anion Gap 1.0(L) 3.0 - 11.0 mmol/L 07/06/2016 4:14 PM EDT [facility] Blood 07/06/2016 2:53 PM EDT 07/06/2016 3:26 PM EDT Narrative [facility] - 07/06/2016 4:14 PM EDT National Kid[employer] Guidelines Stage ? Description ?GFR 1 ? Normal or High ? 90+ 2 ? Mild decrease ?60-89 3 ? Moderate decrease ??30-59 4 ? Severe decrease ?15-29 5 ? Kidney failure ? <15 Tariq MARQUES LAB BLOOD ORDERABLES Final R esult [facility]
[address] [place] [address], * XR Chest 1 View (07/06/2016 2:48 PM EDT) Anatomical Region Laterality Modality Body N/A Radiographic Emma ging 07/06/2016 4:03 PM EDT Impressions 07/06/2016 4:16 PM EDT No active disease. D: ??07/06/2016 E: ??07/06/2016 This report was finalized on 07/06/2016 4:[address] Rodolfo Ruano MD. Narrative 07/06/2016 4:16 PM EDT EXAMINATION: XR CHEST 1 VW- 07/06/2016 INDICATION: R94.39-Abnormal result of other cardiovascular function study COMPARISON: NONE FINDINGS: There is a normal cardiac silhouette. There is no pulmonary inflammatory process. There is no mass or effusion. ? Procedure Note Sharan Ruano MD - 07/06/2016 EXAMINATION: XR CHEST 1 VW- 07/06/2016 INDICATION: R94.39-Abnormal result of other cardiovascular function study COMPARISON: NONE FINDINGS: There is a normal cardiac silhouette. There is no pulmonary inflammatory process. There is no mass or effusion. IMPRESSION: No active disease. E: 07/06/2016 This report was finalized on 07/06/2016 4:[address] Rodolfo Ruano MD. Tariq MARQUES IMG DIAGNOSTIC IMAGING ORDER AURELIO Final Result * (ABNORMAL) POC Glucose Fingerstick (07/06/2016 11:42 AM EDT) Glucose 190(H) 70 - 130 mg/dL 07/06/2016 11:52 AM EDT [facility] Blood 07/06/2016 11:4 2 AM EDT 07/06/2016 11:52 AM EDT [facility] - 07/06/2016 11:52 AM EDT Meter: [id number] Admission Specialist: [id number] Goodwinella Montenegro Steve Valentino MD POINT OF CARE TEST ORDERA BLES Final Result [facility]
[address] [place] [address], * (ABNORMAL) POC Glucose Fingerstick (07/06/2016 7:33 AM EDT) Glucose 131(H) 70 - 130 mg/dL 07/06/2016 7:39 AM EDT [facility] Blood 07/06/2016 7:33 AM EDT 07/06/2016 7:39 AM EDT [facility] - 07/06/2016 7:39 AM EDT Meter: [id number] Admission Specialist: [id number] Buddy Montenegro Steve Valentino MD POINT OF CARE TEST ORDERA BLES Final Result Performing Organization Address [facility] Co de Phone Number [facility]
[address] [place] [address], [place] [phone] * POC Glucose Fingerstick (07/05/2016 10:40 PM EDT) Glucose 94 70 - 130 mg/dL 07/05/2016 10:41 PM EDT [facility] Blood 07/05/2016 10:4 0 PM EDT 07/05/2016 10:41 PM EDT Narrative [facility] - 07/05/2016 10:41 PM EDT Meter: [id number] Admission Specialist: [id number] Mookie Mendiola Steve Valentino MD POINT OF CARE TEST ORDERA BLES Final Result Performing Organization Address [facility] de Phone Number [facility]
[address] [place] [address], * RIGHT AND LEFT HEART CATH (07/05/2016 4:51 PM EDT) Anatomical Region Laterality Modality X-Ray Angiograph y Narrative 07/05/2016 4:59 PM EDT Cardiac Catheterization Referring Provider: ??Aba Espinoza M.D. Indication(s) for this Procedure: ??Unstable angina pectoris with abnormal stress test showing ischemia and chronic systolic congestive heart failure Procedure(s) Performed: ?? Right heart catheterization Left heart catheterization Left ventriculography Coronary angiography Description of the Procedure: ??Informed since tapered sheath was placed a left radial artery and left brachial vein. ??Selective angiography of the right left coronary arteries as well as left heart catheterization left ventriculography was performed. ??Right heart catheterization was performed. ??Procedure is terminated sheath was moved with the TR band and there were no early complications Angiographic Findings: right coronary dominance ?? LM: ?? 40% distal ?? LAD: ??80% mid with collateral flow to the RCA ?? LCX: ??80% plaque ?? RCA: ??100% mid with collaterals from the left and right LV: LVEF ??10% Hemodynamic Findings: Ao pressure: ??97/69 mmHg LVEDP: ??25 mmHg RA: ?? 6 RV: ??30/6 PA: ??30/18 PA mean: ??20 Mean PCWP: ?? 17 EBL: None Specimen(s): None obtained Complications: There were no early complications. Final Impression(s): ?? Two-vessel CAD Severely impaired LV systolic function Mixed ischemic/nonischemic cardio myopathy Recommendations: ?? Implantable defibrillator Consideration for two-vessel bypass surgery Aggressive medical management for congestive heart failure us Steve Valentino MD CV CARDIAC CATH ORDERABLE S Final Result * (ABNORMAL) Basic Metabolic Panel (07/05/2016 1:19 PM EDT) Glucose 159(H) 70 - 100 mg/dL 07/05/2016 1:52 PM EDT [facility] BUN 15 9 - 23 mg/dL 07/05/2016 1:52 PM EDT [facility] Creatinine 0.90 0.60 - 1.30 mg/dL 07/05/2016 1:52 PM EDT [facility] Sodium 139 132 - 146 mmol/L 07/05/2016 1:52 PM EDT [facility] Potassium 4.5 3.5 - 5.5 mmol/L 07/05/2016 1:52 PM EDT [facility] Chloride 107 99 - 109 mmol/L 07/05/2016 1:52 PM EDT [facility] CO2 24.0 20.0 - 31.0 mmol/L 07/05/2016 1:52 PM EDT [facility] Calcium 9.3 8.7 - 10.4 mg/dL 07/05/2016 1:52 PM EDT [facility] eGFR Non Amer 85 >60 mL/min/1.7 3 07/05/2016 1:52 PM EDT [facility] BUN/Creatinine Ratio 16.7 7.0 - 25.0 07/05/2016 1:52 PM EDT [facility] Anion Gap 8.0 3.0 - 11.0 mmol/L 07/05/2016 1:52 PM EDT [facility] Blood Line / Unknown 07/05/2016 1: 19 PM EDT 07/05/2016 1:26 PM EDT Narrative [facility] - 07/05/2016 1:52 PM EDT National Kidney Foundation Guidelines Stage ? Description ?GFR 1 ? Normal or High ? 90+ 2 ? Mild decrease ?60-89 3 ? Moderate decrease ??30-59 4 ? Severe decrease ?15-29 5 ? Kidney failure ? <15 us Steve Valentino MD LAB BLOOD ORDERABLES Jessenia bartholomew Result [facility]
[address] [place] [address], * (ABNORMAL) CBC (No Diff) (07/05/2016 1:19 PM EDT) WBC 7.17 3.50 - 10.80 10*3/mm3 07/05/2016 1:32 PM EDT [facility] RBC 4.46 4.20 - 5.76 10*6/mm3 07/05/2016 1:32 PM EDT [facility] Hemoglobin 14.1 13.1 - 17.5 g/dL 07/05/2016 1:32 PM EDT [facility] Hematocrit 44.7 38.9 - 50.9 % 07/05/2016 1:32 PM EDT [facility] MCV 100.2(H) 80.0 - 99.0 fL 07/05/2016 1:32 PM EDT [facility] MCH 31.6(H) 27.0 - 31.0 pg 07/05/2016 1:32 PM EDT [facility] MCHC 31.5(L) 32.0 - 36.0 g/dL 07/05/2016 1:32 PM EDT [facility] RDW 14.2 11.3 - 14.5 % 07/05/2016 1:32 PM EDT [facility] RDW-SD 51.9 37.0 - 54.0 fl 07/05/2016 1:32 PM EDT [facility] MPV 10.7 6.0 - 12.0 fL 07/05/2016 1:32 PM EDT [facility] Platelets 269 150 - 450 10*3/mm3 07/05/2016 1:32 PM EDT [facility] Blood Line / Unknown 07/05/2016 1: 19 PM EDT 07/05/2016 1:26 PM EDT Steve Valentino MD LAB BLOOD ORDERABLES Jessenia l Result Performing Organization Address City/[facility]/ZIP Co de Phone Number [facility]
[address] [place] [address], * (ABNORMAL) POC Glucose Fingerstick (07/05/2016 1:14 PM EDT) Glucose 152(H) 70 - 130 mg/dL 07/05/2016 1:16 PM EDT [facility] Blood 07/05/2016 1:14 PM EDT 07/05/2016 1:16 PM EDT Narrative [facility] - 07/05/2016 1:16 PM EDT Meter: [id number] Admission Specialist: [id number] Meghan Nazario Steve Valentino MD POINT OF CARE TEST ORDERA BLES Final Result [facility]
[address] [place] [address], * SCANNED - CARDIOLOGY (07/05/2016) Anatomical Region Laterality Modality Other [facility] CARDI[facility] SERVICES ORDERABLE S Final Result * SCANNED - TELEMETRY (07/05/2016) Anatomical Region Laterality Modality Other [facility] ECG ORDERABLES Final Result * SCANNED - TELEMETRY (07/05/2016) Anatomical Region Laterality Modality Other [facility] ECG ORDERABLES Final Result documented in this encounter Visit Diagnoses Diagnosis Abnormal stress test Other nonspecific abnormal cardiovascular system function study Abnormal stress test Other nonspecific abnormal cardiovascular system function study Abnormal stress test Other nonspecific abnormal cardiovascular system function study documented in this encounter Admitting Diagnoses Diagnosis Abnormal stress test Other nonspecific abnormal cardiovascular system function study documented in this encounter Administered Medications Inactive Administered Medications - up to 3 most recent administrations Medication Order MAR Action Action Date Dose Rate Site aspirin chewable tablet 81 mg 81 mg, Oral, Daily, First dose on Tue07/06/16 at 0900, Unless given today. Herbal/drug interaction: Avoid use with ginkgo biloba. Given 07/07/2016 9:06 AM EDT 81 mg Given 07/06/2016 10:14 AM EDT 81 mg dextrose (D50W) solution 25 g 25 g, Intravenous, Every 15 Minutes PRN, Low Blood Sugar, Blood Sugar Less Than 70, Patient Has IV Access - Unresponsive, NPO or Unable To Safely Swallow, Starting on Tue07/05/16 at 1337 dextrose (GLUTOSE) oral gel 15 g 15 g, Oral, Every 15 Minutes PRN, Low Blood Sugar, Blood Sugar Less Than 70, Patient Alert, Is Not NPO & Can Safely Swallow, Starting on Tue07/05/16 at 1337 escitalopram (LEXAPRO) tablet 20 mg 20 mg, Oral, Daily, First dose on Tue07/06/16 at 0900 Given 07/07/2016 9:07 AM EDT 20 mg Given 07/06/2016 10:13 AM EDT 20 mg furosemide (LASIX) tablet 40 mg 40 mg, Oral, Daily, First dose on Tue07/05/16 at 1800 Given 07/07/2016 9:07 AM EDT 40 mg Given 07/06/2016 10:12 AM EDT 40 mg glipiZIDE (GLUCOTROL) tablet 5 mg 5 mg, Oral, 2 Times Daily Before Meals, First dose on Tue07/05/16 at 1800 Given 07/07/2016 9:06 AM EDT 5 mg Given 07/06/2016 5:19 PM EDT 5 mg Given 07/06/2016 10:15 AM EDT 5 mg glucagon (GLUCAGEN) injection 1 mg 1 mg, Subcutaneous, Every 15 Minutes PRN, Blood Glucose Less Than 70 - Patient Without IV Access - Unresponsive, NPO or Unable To Safely Swallow, Starting on Tue07/05/16 at 1337 HYDROcodone-acetaminophen (NORCO) 5-325 MG per tablet 1 tablet 1 tablet, Oral, Every 4 Hours PRN, Moderate Pain, Starting on Tue07/05/16 at 1725, For 10 days, Do not exceed 4 grams of acetaminophen in a 24 hr period. Given 07/07/2016 9:06 AM EDT 1 tablet insulin lispro (humaLOG) injection 0-7 Units 0-7 Units, Subcutaneous, 4 Times Daily With Meals & Nightly, First dose on Tue07/05/16 at 1800, Correction - Low Dose. Less than 40 units/day total insulin dose or lean, elderly, renal patients Blood glucose 150-199 mg/dL - 2 units Blood glucose 200-249 mg/dL - 3 units Blood glucose 250-299 mg/dL - 4 units Blood glucose 300-349 mg/dL - 5 units Blood glucose 350-400 mg/dL - 6 units Blood glucose greater than 400 mg/dL - 7 units and call provider {BKC} Given 07/06/2016 9:42 PM EDT 2 Units Right Lower Abdomen Given 07/06/2016 1:38 PM EDT 2 Units Le ft Arm iopamidol (ISOVUE-370) 76 % injection As Needed, Starting on Tue07/05/16 at 1651 Given 07/05/2016 4:51 PM EDT 89 mL lidocaine (XYLOCAINE) 1 % injection As Needed, Starting on Tue07/05/16 at 1632 Given 07/05/2016 4:32 PM EDT 3 mL Wrist Left Morphine sulfate (PF) injection 1 mg 1 mg, Intravenous, Every 4 Hours PRN, Severe Pain, Starting on Tue07/05/16 at 1725, For 10 days naloxone (NARCAN) injection 0.4 mg 0.4 mg, Intravenous, Every 5 Minutes PRN, Respiratory Depression, Starting on Tue07/05/16 at 1725, If respiratory rate is less than 8 breaths/minute or patient is difficult to arouse stop any narcotics and contact physician. Administer slow IV push. Repeat as ordered until patient's respiratory rate is greater than 12 breaths/minute. nicardipine (CARDENE) 400 mcg, nitroglycerin 400 mcg, heparin (porcine) 5,000 Units radial artery injection As Needed, Starting on Tue07/05/16 at 1634 Given 07/05/2016 4:34 PM EDT Left Arm O2 (OXYGEN) As Needed, Starting on Tue07/05/16 at 1641 Given 07/05/2016 4:41 PM EDT 2 L Pharmacy Meds to Bed Consult Daily (Tuesday-Tuesday), First dose on Tue07/06/16 at 1230, Until Discontinued potassium chloride (MICRO-K) CR capsule 10 mEq 10 mEq, Oral, Daily, First dose on Tue07/05/16 at 1800 Given 07/07/2016 9:07 AM EDT 10 mEq Given 07/06/2016 10:12 AM EDT 10 mEq sacubitril-valsartan (ENTRESTO) 24-26 MG tablet 1 tablet 1 tablet, Oral, Every 12 Hours Scheduled, First dose on Tue07/05/16 at 2100 Given 07/07/2016 9:06 AM EDT 1 tablet Given 07/06/2016 9:42 PM EDT 1 tablet Given 07/06/2016 10:16 AM EDT 1 tablet SITagliptin (JANUVIA) tablet 50 mg 50 mg, Oral, Daily, First dose on Tue07/05/16 at 1800 Given 07/07/2016 9:07 AM EDT 50 mg Given 07/06/2016 10:15 AM EDT 50 mg spironolactone (ALDACTONE) tablet 25 mg 25 mg, Oral, Daily, First dose on Tue07/05/16 at 1800 Given 07/07/2016 9:07 AM EDT 25 mg Given 07/06/2016 10:14 AM EDT 25 mg documented in this encounter Active and Recently Administered Medications Times are shown in EDT. Scheduled Medication Order 07/05/2016 07/06/2016 07/07/2016 aspirin chewable tablet 81 mg 81 mg, Oral, Daily, First dose on Tue07/06/16 at 0900, Unless given today. Herbal/drug interaction: Avoid use with ginkgo biloba. 1014 (Given - Provider: Jyoti Fox RN) 0906 (Given - Provider: Jyoti Fox RN) aspirin EC tablet 325 mg (CANCELED) 325 mg, Oral, Daily, First dose on Tue07/05/16 at 1400, Herbal/drug interaction: Avoid use with ginkgo biloba. Do not crush or chew. 1424 (Given - Provider: Maria Fernanda Adams RN)1600 (MAR Hold - Provider: Automatic Transfer Provider - Reason: Unreviewed Transfer Orders)1725 (MAR Unhold - Provider: Tiana Crabtree RN) carvedilol (COREG) tablet 3.125 mg 3.125 mg, Oral, 2 Times Daily With Meals, First dose on Tue07/05/16 at 1800, Give with food. 2242 (Not Given - Provider: Marlena Damico RN - Reason: Other - Comment: bp /) 1013 (Not Given - Provider: Jyoti Fox RN - Reason: Order parameters not met)1851 (Not Given - Provider: Jyoti Fox RN - Reason: Order parameters not met) 0907 (Not Given - Provider: Jyoti Fox RN - Reason: Order parameters not met) escitalopram (LEXAPRO) tablet 20 mg 20 mg, Oral, Daily, First dose on Tue07/06/16 at 0900 1013 (Given - Provider: Jyoti Fox RN) 0907 (Given - Provider: Jyoti Fox RN) furosemide (LASIX) tablet 40 mg 40 mg, Oral, Daily, First dose on Tue07/05/16 at 1800 2246 (Not Given - Provider: Marlena Damico RN - Reason: Other - Comment: bp /) 1012 (Given - Provider: Jyoti Fox RN) 0907 (Given - Provider: Jyoti Fox RN) glipiZIDE (GLUCOTROL) tablet 5 mg 5 mg, Oral, 2 Times Daily Before Meals, First dose on Tue07/05/16 at 1800 2244 (Not Given - Provider: Marlena Damico RN - Reason: Patient/family refused) 1015 (Given - Provider: Jyoti Fox RN)1719 (Given - Provider: Maribell Moreno LPN) 0906 (Given - Provider: Jyoti Fox RN) insulin lispro (humaLOG) injection 0-7 Units 0-7 Units, Subcutaneous, 4 Times Daily With Meals & Nightly, First dose on Tue07/05/16 at 1800, Correction - Low Dose. Less than 40 units/day total insulin dose or lean, elderly, renal patients Blood glucose 150-199 mg/dL - 2 units Blood glucose 200-249 mg/dL - 3 units Blood glucose 250-299 mg/dL - 4 units Blood glucose 300-349 mg/dL - 5 units Blood glucose 350-400 mg/dL - 6 units Blood glucose greater than 400 mg/dL - 7 units and call provider {BKC} 1600 (MAR Hold - Provider: Automatic Transfer Provider - Reason: Unreviewed Transfer Orders)1725 (MAR Unhold - Provider: Tiana Crabtree RN)2243 (Not Given - Provider: Marlena Damico RN - Reason: Other - Comment: fsbs 94) 0057 (Not Given - Provider: Steve Wooten RN - Reason: Order parameters not met)1017 (Not Given - Provider: Jyoti Fox RN - Reason: Order parameters not met)1338 (Given - Provider: Jyoti Fox RN)1721 (Not Given - Provider: Maribell Moreno LPN - Reason: Order parameters not met)2142 (Given - Provider: Kelly Banks RN) 0908 (Not Given - Provider: Jyoti Fox RN - Reason: Order parameters not met - Comment: B)1226 (Not Given - Provider: Gela Soto RN - Reason: Contraindicated) Pharmacy Meds to Bed Consult Daily (Tuesday-Tuesday), First dose on Tue07/06/16 at 1230, Until Discontinued 1339 (Canceled Entry - Provider: Jyoti Fox RN) 0908 (Canceled Entry - Provider: Jyoti Fox RN) potassium chloride (MICRO-K) CR capsule 10 mEq 10 mEq, Oral, Daily, First dose on Tue07/05/16 at 1800 2246 (Not Given - Provider: Marlena Damico RN - Reason: Patient/family refused) 1012 (Given - Provider: Jyoti Fox RN) 0907 (Given - Provider: Jyoti Fox RN) sacubitril-valsartan (ENTRESTO) 24-26 MG tablet 1 tablet 1 tablet, Oral, Every 12 Hours Scheduled, First dose on Tue07/05/16 at 2100 2243 (Not Given - Provider: Marlena Damico RN - Reason: Other - Comment: bp 90/73) 1016 (Given - Provider: Jyoti Fox RN)2142 (Given - Provider: Kelly Banks RN) 0906 (Given - Provider: Jyoti Fox RN) SITagliptin (JANUVIA) tablet 50 mg 50 mg, Oral, Daily, First dose on Tue07/05/16 at 1800 2244 (Not Given - Provider: Marlena Damico RN - Reason: Patient/family refused) 1015 (Given - Provider: Jyoti Fox RN) 0907 (Given - Provider: Jyoti Fox RN) spironolactone (ALDACTONE) tablet 25 mg 25 mg, Oral, Daily, First dose on Tue07/05/16 at 1800 2245 (Not Given - Provider: Marlena Damico RN - Reason: Other) 1014 (Given - Provider: Jyoti Fox RN) 0907 (Given - Provider: Jyoti Fox RN) PRN Medication Order 07/05/2016 07/06/2016 07/07/2016 acetaminophen (TYLENOL) tablet 650 mg 650 mg, Oral, Every 4 Hours PRN, Mild Pain, temperature greater than 101F, Starting on Tue07/05/16 at 1725, Do not exceed 4 grams of acetaminophen in a 24 hr period. ALPRAZolam (XANAX) tablet 0.25 mg 0.25 mg, Oral, 3 Times Daily PRN, Anxiety, Starting on Tue07/05/16 at 1725, For 10 days, Avoid grapefruit juice dextrose (D50W) solution 25 g 25 g, Intravenous, Every 15 Minutes PRN, Low Blood Sugar, Blood Sugar Less Than 70, Patient Has IV Access - Unresponsive, NPO or Unable To Safely Swallow, Starting on Tue07/05/16 at 1337 1600 ([facility] Hold - Provider: Automatic Transfer Provider - Reason: Unreviewed Transfer Orders)1725 ([facility] Unhold - Provider: Tiana Crabtree RN) dextrose (GLUTOSE) oral gel 15 g 15 g, Oral, Every 15 Minutes PRN, Low Blood Sugar, Blood Sugar Less Than 70, Patient Alert, Is Not NPO & Can Safely Swallow, Starting on Tue07/05/16 at 1337 1600 ([facility] Hold - Provider: Automatic Transfer Provider - Reason: Unreviewed Transfer Orders)1725 ([facility] Unhold - Provider: Tiana Crabtree RN) glucagon (GLUCAGEN) injection 1 mg 1 mg, Subcutaneous, Every 15 Minutes PRN, Blood Glucose Less Than 70 - Patient Without IV Access - Unresponsive, NPO or Unable To Safely Swallow, Starting on Tue07/05/16 at 1337 1600 ([facility] Hold - Provider: Automatic Transfer Provider - Reason: Unreviewed Transfer Orders)1725 ([facility] Unhold - Provider: Tiana Crabtree RN) HYDROcodone-acetaminophen (NORCO) 5-325 MG per tablet 1 tablet 1 tablet, Oral, Every 4 Hours PRN, Moderate Pain, Starting on Tue07/05/16 at 1725, For 10 days, Do not exceed 4 grams of acetaminophen in a 24 hr period. 0906 (Given - Provid er: Jyoti Fox RN) iopamidol (ISOVUE-370) 76 % injection (CANCELED) As Needed, Starting on Tue07/05/16 at 1651 1651 (Given - Provider: Steve Valentino MD) lidocaine (XYLOCAINE) 1 % injection (CANCELED) As Needed, Starting on Tue07/05/16 at 1632 1632 (Given - Provider: Steve Valentino MD - Comment: Left AC vein) Morphine sulfate (PF) injection 1 mg(Linked Group 1) 1 mg, Intravenous, Every 4 Hours PRN, Severe Pain, Starting on Tue07/05/16 at 1725, For 10 days naloxone (NARCAN) injection 0.4 mg(Linked Group 1) 0.4 mg, Intravenous, Every 5 Minutes PRN, Respiratory Depression, Starting on Tue07/05/16 at 1725, If respiratory rate is less than 8 breaths/minute or patient is difficult to arouse stop any narcotics and contact physician. Administer slow IV push. Repeat as ordered until patient's respiratory rate is greater than 12 breaths/minute. nicardipine (CARDENE) 400 mcg, nitroglycerin 400 mcg, heparin (porcine) 5,000 Units radial artery injection (CANCELED) As Needed, Starting on Tue07/05/16 at 1634 1634 (Given - Provider: Steve Valentino MD) O2 (OXYGEN) (CANCELED) As Needed, Starting on Tue07/05/16 at 1641 1641 (Given - Provider: Sabine Garcia RN) temazepam (RESTORIL) capsule 7.5 mg 7.5 mg, Oral, Nightly PRN, Sleep, Starting on Tue07/05/16 at 1725, For 10 days Linked Groups Order Group 1: Morphine sulfate (PF) injection 1 mgJump to med 1 mg, Intravenous, Every 4 Hours PRN, Severe Pain, Starting on Tue07/05/16 at 1725, For 10 days And naloxone (NARCAN) injection 0.4 mgJump to med 0.4 mg, Intravenous, Every 5 Minutes PRN, Respiratory Depression, Starting on Tue07/05/16 at 1725, If respiratory rate is less than 8 breaths/minute or patient is difficult to arouse stop any narcotics and contact physician. Administer slow IV push. Repeat as ordered until patient's respiratory rate is greater than 12 breaths/minute. documented in this encounter Care Teams Qa Tester Relationship Specialty Start Date End Date Aba Espinoza MD [address] [place] [address] [address] [place] [address] PCP - General Family Medicine 07/05/16 07/19/17 documented as of this encounter
--- OUTSIDE RECORDS SUMMARY | 2024-01-18 14:50 | XMS_ITS | Encounter Summary ---
Author Organization [facility] Address [address] [place] [address] Care Team Providers Care Stamp Analyst Name Role Phone Aba Espinoza MD Primary Care Provider + [phone] Reason for Visit * Auth/Cert Specialty Diagnoses / Procedures Referred By Kadie casillas Referred To Contact Diagnoses Encounter for screening for malignant neoplasm of colon Z12.11 (ICD-10-CM) - Encounter for screening for malignant neoplasm of colon Procedures COLONOSCOPY Referral ID Status Reason Start Date Expiration Date Visits Re quested Visits Authorized [id number] 1 1 Encounter Details Date Type Department Care Team (Latest Contact Info) Description 07/18/2017 9:02 AM EDT - 07/18/2017 2:00 PM EDT Hospital Encounter [facility] OR [address] [place] [id number] Liban Pierce MD [address] [place] [address] Screening for cancer Discharge Disposition: Home or Self Care Social [...] Sign Reading Time Taken Comments Blood Pressure 113/66 07/18/2017 1:20 PM EDT Pulse 64 07/18/2017 1:20 PM EDT Temperature 36.6 ??C (97.8 ??F) 07/18/2017 1:20 PM ED T Respiratory Rate 18 07/18/2017 1:20 PM EDT Oxygen Saturation 96% 07/18/2017 1:20 PM EDT Inhaled Oxygen Concentration - - Weight 122 kg (269 lb 12.8 oz) 07/18/2017 10:34 AM EDT Height 190.5 cm (6' 3 ) 07/18/2017 10:26 AM EDT Body Mass Index 33.72 07/18/2017 10:26 AM EDT documented in this encounter Discharge Instructions * Attachments The following attachments cannot be sent through Care Everywhere. * COLONOSCOPY ADULT CARE AFTER [id number] ([facility]) * MODERATE CONSCIOUS SEDATION ADULT CARE AFTER ([facility]) documented in this encounter Medications at Time of Discharge aspirin 81 MG chewable tablet Chew 1 tablet Daily. 30 tablet 12 07/07/2016 3:28 PM EDT 07/07/2016 carvedilol (COREG) 3.125 MG tablet Take 1 tablet by mouth 2 (Two) Times a Day With Meals. 60 tablet 12/30/2016 escitalopram (LEXAPRO) 20 MG tablet Take 20 mg by mouth Daily. glipiZIDE (GLUCOTROL) 5 MG tablet Take 5 mg by mouth Daily. metFORMIN (GLUCOPHAGE) 1000 MG tablet Take 1,000 mg by mouth 2 (Two) Times a Day With Meals. spironolactone (ALDACTONE) 25 MG tablet Take 1 tablet by mouth Daily. 30 tablet 12 07/07/2016 3:28 PM EDT 07/07/2016 benzonatate (TESSALON) 200 MG capsule Take 200 mg by mouth As Needed for Cough. 07/20/2017 nitroglycerin (NITROLINGUAL) 0.4 MG/SPRAY spray Place 1 spray under the tongue Every 5 (Five) Minutes As Needed for Chest Pain. 4.9 g 12 10/13/2016 10/27/2017 sacubitril-valsar mistry (ENTRESTO) 24-26 MG tablet Take 1 tablet by mouth Every 12 (Twelve) Hours. 60 tablet 11 04/22/2017 08/05/2017 SITagliptin (JANUVIA) 50 MG tablet Take 50 mg by mouth Daily. 11/19/2020 torsemide (DEMADEX) 20 MG tablet Take 1 tablet by mouth Daily. Take one half to one whole tablet as needed daily 90 tablet 3 03/02/2017 08/05/2017 documented as of this encounter H&P Notes * Liban Pierce MD - 07/18/2017 12:31 PM EDT Pre-Op H&P Dane Ray [phone] [id number] Chief complaint: Screening colonoscopy HPI: Patient is a 66 y.o.male presents with history of colonoscopy 20 years ago with remote benign colonpolyps with removal who presents today in referral from his PCP for screening colonoscopy. Denies any melena, change in bowel habits. Review of Systems: General ROS: negative for chills, fever or skin lesions; No changes since last office visit Cardiovascular ROS: no chest pain or dyspnea on exertion. Follows with Dr. Abernathy/[facility] for ICM s/p ICD and not cardiac surgical candidate. Last TTE 06/2017 with [facility] office visit (see chart for note) EF 15% +/- 5% sclerotic AV. No shocks, monitoring weight gain with no significant increases. ? Plans for cardiac transplant in future Respiratory ROS: no cough, +baselin shortness of breath, or wheezing. No orthopnea Allergies: No Known Allergies Home Meds: No current facility-administered medications on file prior to encounter. Current Outpatient Prescriptions on File Prior to Encounter Medication Sig Dispense Refill ??? aspirin 81 MG chewable tablet Chew 1 tablet Daily. 30 tablet 12 ??? carvedilol (COREG) 3.125 MG tablet Take 1 tablet by mouth 2 (Two) Times a Day With Meals. (Patient taking differently: Take 6.25 mg by mouth 2 (Two) Times a Day With Meals.) 60 tablet 0 ??? escitalopram (LEXAPRO) 20 MG tablet Take 20 mg by mouth Daily. ??? glipiZIDE (GLUCOTROL) 5 MG tablet Take 5 mg by mouth 2 (Two) Times a Day Before Meals. ??? metFORMIN (GLUCOPHAGE) 1000 MG tablet Take 1,000 mg by mouth 2 (Two) Times a Day With Meals. ??? nitroglycerin (NITROLINGUAL) 0.4 MG/SPRAY spray Place 1 spray under the tongue Every 5 (Five) Minutes As Needed for Chest Pain. 4.9 g 12 ??? sacubitril-valsartan (ENTRESTO) 24-26 MG tablet Take 1 tablet by mouth Every 12 (Twelve) Hours.60 tablet 11 ??? SITagliptin (JANUVIA) 50 MG tablet Take 50 mg by mouth Daily. ??? spironolactone (ALDACTONE) 25 MG tablet Take 1 tablet by mouth Daily. (Patient taking differently: Take 25 mg by mouth Daily. Take 1/2 tablet in am.) 30 tablet 12 ??? torsemide (DEMADEX) 20 MG tablet Take 1 tablet by mouth Daily. Take one half to one whole tablet as needed daily 90 tablet 3 ??? benzonatate (TESSALON) 200 MG capsule Take 200 mg by mouth As Needed for Cough. ??? [DISCONTINUED] potassium chloride (K-DUR) 10 MEQ CR tablet Take 10 mEq by mouth Daily. ??? [DISCONTINUED] simvastatin (ZOCOR) 40 MG tablet Take 40 mg by mouth Every Night. PMH: Past Medical History: Diagnosis Date ??? Anxiety ??? Cardiomyopathy ??? Coronary artery disease ??? Diabetes mellitus ??? Hyperlipidemia ??? Hypertension PSH: Past Surgical History: Procedure Laterality Date ??? CARDIAC CATHETERIZATION Bilateral 07/05/2016 Procedure: Right and Left Heart Cath; Surgeon: Steve Valentino MD; Location: [facility] CATH [facility] LOCATION; Service: ??? CARDIAC DEFIBRILLATOR PLACEMENT Left 02/2017 also PPM Social History: Tobacco: History Smoking Status ??? Former Smoker ??? Types: Cigarettes ??? Quit date: 08/13/2016 Smokeless Tobacco ??? Never Used Comment: stopped june 2016 Alcohol: History Alcohol Use ??? 2.4 oz/week ??? 4 Cans of beer per week Vitals: BP 119/81 (BP Location: Left arm, Patient Position: Lying) Pulse 62 Temp 97.5 ??F (36.4 ??C) (Temporal Artery ) Resp 16 Ht 190.5 cm (75 ) Wt 122 kg (269 lb 12.8 oz) SpO2 97% BMI 33.72 kg/m?? Physical Exam: General Appearance: Alert, cooperative, no distress, appears stated age Head: Normocephalic, without obvious abnormality, atraumatic Lungs: Clear to auscultation bilaterally, respirations unlabored Heart: Regular rate and rhythm, S1 and S2 normal, no murmur, rub or gallop Abdomen: Soft, non-tender. +bowel sounds Breast Exam: deferred Genitalia: deferred Extremities: Extremities normal, atraumatic, no cyanosis or scant LE edema Skin: Skin color, texture, turgor normal, no rashes or lesions Neurologic: Grossly intact Results Review I reviewed the patient's new clinical results. Cancer Staging (if applicable) Cancer Patient: __ yes _x_no __unknown; If yes, clinical stage T:__ N:__M:__, stage group or __N/A Impression/Plan: Colonoscopy screening, Preoperative evaluation for possible cardiac transplant, with last colonoscopy approximately 20 yrs ago with benign colon polyps with removal per pt/family report. Procedure discussed with pt/family and agreeable to proceed. Cassia Crespo APRN 07/18/2017 12:31 PM documented in this encounter OR Notes * Op Note - Liban Pierce MD - 07/18/2017 1:08 PM EDT Colon and Rectal [CSGA] COLONOSCOPY Procedure Note Dane Stoutjose 07/18/2017 Pre-op Diagnosis: Lung cancer screening Post-op Diagnosis: Right colon polyp Procedure(s): COLONOSCOPY and polypectomy Surgeon(s): Liban Pierce MD Anesthesia: Sedation Staff: Endo Comb Capper: Gracie Dubose Endo Nurse: Caty James RN Estimated Blood Loss: 0 Specimens: Order Name Source Comment Collection Info Order Time OR POTASSIUM Arm, Right Collected By: Caty James RN 07/18/2017 10:59 AM TISSUE PATHOLOGY EXAM Large Intestine, Right / Ascending Colon Collected By: Liban Pierce MD 07/18/2017 12:54 PM Findings: Given his severe heart disease, anesthesia opted to treat him lightly with Versed and propofol. This was done in the left lateral position. External anal and digital exam was normal. The scope was passed fairly easily to the cecum showing a normal opening the appendix and small bowel. There is some thick bile on the wall that would not come off so I easily could've missed some small polyps. There was a 1 cm polyp in the proximal right colon removed cleanly with the cold snare and retrieved. The remainder of the colon was normal without evidence of diverticuli, inflammation or further polyps. The patient tolerated the procedure well and follow-up will depend on pathology symptoms and his overall health. Complications: 0 Liban Pierce MD Date: 07/18/2017 Time: 1:08 PM documented in this encounter Plan of Treatment Upcoming Encounters Date Type Department Care Team (Late st Contact Info) Description 03/02/2024 2:45 PM EST Telemedicine [facility] [address] [facility] [address] [place] [phone] Rosalino Tom, [employer]ER [address] [place] [address] documented as of this encounter Procedures Procedure Name Priority Date/Time Associated Diagnosis Comments TISSUE PATHOLOGY EXAM Routine 07/18/2017 12:53 PM EDT Screening for cancer COLONOSCOPY 07/18/2017 12:23 PM EDT ECG 12-LEAD Routine 07/18/2017 11:27 AM EDT CONV OR POTASSIUM Routine 07/18/2017 11: 02 AM EDT POCT GLUCOSE FINGERSTICK Routine 07/18/2017 10:38 AM EDT documented in this encounter Results * Tissue Pathology Exam (07/18/2017 12:53 PM EDT) Case Report Surgical Pathology Report ? Case: [id number] ? Authorizing Provider: ??Liban Pierce MD ?Collected: ? 07/18/2017 12:53 PM ? Ordering Location: ? [facility] ?? Received: ?07/18/2017 01:53 PM ? ENDO SUITES ? Pathologist: ? Heriberto Shah MD ? Specimen: ?Large Intestine, Right / Ascending Colon, cold snare polyp ? 07/19/2017 5:22 PM EDT [facility] Clinical Information The working history is colon polyps. 07/19/2017 5:22 PM EDT [facility] Final Diagnosis CECUM POLYP: Tubular adenoma without high-grade dysplasia. JFJ/dlb 07/19/2017 5:22 PM EDT [facility] Gross Description Received in formalin labeled as right colon cold snare polyp are two pieces of mistry soft tissue aggregating 1.0 x 1.0 x 0.3 cm. The larger piece of tissue is sectioned and the specimen is submitted entirely in cassette 1. HBM/klb 07/19/2017 5:22 PM EDT [facility] Microscopic Description Sections show a tubular proliferation of crypts lined by cells with enlarged, hyperchromatic, overlapping nuclei. There is no evidence of in-situ or invasive carcinoma. 07/19/2017 5:22 PM EDT [facility] Embedded Images 07/19/2017 5:22 PM EDT [facility] Tissue Ascending colon structure / Unknown 07/18/2017 12:53 PM EDT 07/18/2017 1:53 PM EDT us Liban Pierce MD PATHOLOGY/CYTOLOGY ORDERABLES Final Result [facility]
[address] [place] [address], * ECG 12 Lead (07/18/2017 11:27 AM EDT) 07/18/2017 11:2 7 AM EDT 07/18/2017 3:34 PM EDT Narrative ECG - 07/18/2017 3:35 PM EDT Test Reason : pre procedure Blood Pressure : / mmHG Vent. Rate : 064 BPM ? Atrial Rate : 064 BPM ?? P-R Int : 234 ms ?QRS Dur : 102 ms ?QT Int : 464 ms ? P-R-T Axes : 072 -21 035 degrees ?? QTc Int : 478 ms Poor data quality, interpretation may be adversely affected Sinus rhythm with 1st degree AV block Low voltage QRS Abnormal ECG No previous ECGs available Confirmed by JOSEMANUEL ??KY VELAZQUEZ ([id number]) on 07/18/2017 3:34:57 PM Referred By: ? Confirmed By:KY ABERNATHY ?? Procedure Note Ky Abernathy MD - 07/18/2017 Test Reason : pre procedure Blood Pressure : / mmHG Vent. Rate : 064 BPM Atrial Rate : 064 BPM P-R Int : 234 ms QRS Dur : 102 ms QT Int : 464 ms P-R-T Axes : 072 -21 035 degrees QTc Int : 478 ms Poor data quality, interpretation may be adversely affected Sinus rhythm with 1st degree AV block Low voltage QRS Abnormal ECG No previous ECGs available Confirmed by KY ABERNATHY MD ([id number]) on 07/18/2017 3:34:57 PM Referred By: Confirmed By:KY ABERNATHY MD Philip Raman MD ECG ORDERABLES Final Result Performing Organization Address [facility] Co de Phone Number ECG * OR Potassium (07/18/2017 11:02 AM EDT) Potassium, OR 4.20 3.5 - 5.3 mmol/L 07/18/2017 11:13 AM EDT [facility] Blood Right upper arm structure / Unknown Venipuncture / Unknown 07/18/2017 11:02 AM EDT 07/18/2017 11:11 AM EDT Philip Raman MD LAB BLOOD ORDERABLES Final R esult Performing Organization Address [facility] [[email or web address]] de Phone Number [facility]
[address] [place] [address], * (ABNORMAL) POC Glucose Once (07/18/2017 10:38 AM EDT) Glucose 132(H) 70 - 130 mg/dL 07/18/2017 10:41 AM EDT [facility] Blood 07/18/2017 10:3 8 AM EDT 07/18/2017 10:41 AM EDT Narrative [facility] - 07/18/2017 10:41 AM EDT Meter: [id number] Blade Operator: [id number] Robert Frazier Liban Pierce MD POINT OF CARE TEST ORDERABLES Final Result Performing Organization Address [facility] Co de Phone Number [facility]
[address] [place] [address], documented in this encounter Visit Diagnoses Diagnosis Screening for cancer Screening for unspecified malignant neoplasm documented in this encounter Administered Medications Inactive Administered Medications - up to 3 most recent administrations Medication Order MAR Action Action Date Dose Rate Site lactated ringers infusion 9 mL/hr, Intravenous, Continuous, Starting on 07/18/17 at 1315, May switch to NS IV at KVO if renal / if indicated New Bag 07/18/2017 12:37 PM EDT New Bag 07/18/2017 12:31 PM EDT 9 mL/hr 9 mL/hr documented in this encounter Active and Recently Administered Medications Times are shown in EDT. Continuous Medication Order 07/16/2017 07/17/2017 07/18/2017 lactated ringers infusion 9 mL/hr, Intravenous, Continuous, Starting on 07/18/17 at 1315, May switch to NS IV at KVO if renal / if indicated 1231 (New Bag - Prov ider: Caty James RN)1237 (New Bag - Provider: April Kay CRNA)1255 (Anesthesia Volume Adjustment - Provider: April Kay CRNA) documented in this encounter Care Teams Stamp Analyst Relationship Specialty Start Date End Date Aba Espinoza MD [address] [facility] [address] [facility] [address] [place] [address] PCP - General Family Medicine 07/05/16 07/19/17 documented as of this encounter
--- OUTSIDE RECORDS SUMMARY | 2024-01-18 14:50 | XMS_ITS | Encounter Summary ---
Author Organization [facility] Address [address] [address] Care Team Providers Care Dairy Tester Name Role Phone Aba Espinoza MD Primary Care Provider + [phone] Reason for Visit * Reason Comments Cardiomyopathy Encounter Details Date Type Department Care Team (Late st Contact Info) Description 01/13/2017 2:15 PM EST Office Visit [facility] CARDIOLOGY [address] [place] [address] Ky Morataya MD [address] [facility] [address] [place] [address] Cardiomyopathy, unspecified type (Primary Dx); Coronary artery disease involving eyak coronary artery of eyak heart without angina pectoris; Essential hypertension; Mixed hyperlipidemia Social History Tobacco [...] Sign Reading Time Taken Comments Blood Pressure 91/64 01/13/2017 2:41 PM EST Pulse 88 01/13/2017 2:41 PM EST Temperature - - Respiratory Rate - - Oxygen Saturation - - Inhaled Oxygen Concentration - - Weight 121 kg (267 lb) 01/13/2017 2:39 PM EST Height 190.5 cm (6' 3 ) 01/13/2017 2:39 PM EST Body Mass Index 33.37 01/13/2017 2:39 PM EST documented in this encounter Progress Notes * Ky Morataya MD - 01/13/2017 2:15 PM EST Images from the original note were not included. Subjective: Encounter Date:01/13/2017 Patient ID: Dane Ray is a 66 y.o. 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 PHYSICIAN: Aba Espinoza MD REMOTE COLLEGE COUNSELOR: Steve Valentino MD HEART FAILURE/TRANSPLANT COLLEGE COUNSELOR: Liss Acevedo MD ([facility]) CARDIOTHORACIC SURGEON: Surya Lopez MD; Dr. Bird at [facility] Chief Complaint: Chief Complaint Patient presents with ??? Cardiomyopathy Problem List: 1. Coronary artery disease/ischemic cardiomyopathy: A. Remote exercise stress test x 6: Negative per patient-data deficit, in [place] B. Echocardiogram 07/13/16; moderately enlarged left atrium, moderately dilated LV with severely reduced LV systolic function, LVEF 0.20-0.25 with multiple omental wall motion abnormalities, mild MR and TR, RVSP 38 mmHg C. Exercise stress test 06/30/16; abnormal, myocardial perfusion imaging abnormal, overall LV systolic function is abnormal with regional wall motion abnormalities, LVEF 0.18 D. Right and Left heart catheterization 07/05/16; left main 40% distal, LAD 80% mid with collateral flow to the RCA, left circumflex 80% plaque, RCA 100% mid with collaterals from the left and right, LVEF 0.10, mixed ischemia/nonischemic cardiomyopathy, 2 vessel CAD, not a candidate for CABG at thistime after cardiac viability testing and might need an LVAD and/or heart transplant, transplant specialist at E. Cardiac MRI 07/28/16; LVEF 0.17, mixed viability area in the mid to distal LAD territory and nonviable areas of the RCA territory, RV normal in size, RVEF 34%, biatrial enlargement F. Medtronic ICD model number [id number] implanted at [facility] 12/06/16 G. CCS Class I chest discomfort/NYHA class II dyspnea with exertion 2. Occasional PVC's 3. Type 2 diabetes mellitus, hemoglobin A1c 7% 4. Hypertension 5. Hyperlipidemia 6. Former tobacco use; on Chantix, quit 08/13/16 7. Mild-moderate obesity; BMI 33.4 8. Anxiety 9. Surgical history: LHC ?? No Known Allergies Current Outpatient Prescriptions: ??? aspirin 81 MG chewable tablet, Chew 1 tablet Daily., Disp: 30 tablet, Rfl: 12 ??? benzonatate (TESSALON) 200 MG capsule, Take 200 mg by mouth As Needed for Cough., Disp: , Rfl: ??? carvedilol (COREG) 3.125 MG tablet, Take 1 tablet by mouth 2 (Two) Times a Day With Meals., Disp: 60 tablet, Rfl: 0 ??? escitalopram [...] for Chest Pain., Disp: 4.9 g, Rfl: 12 ??? potassium chloride (K-DUR) 10 MEQ CR tablet, Take 10 mEq by mouth Daily., Disp: , Rfl: ??? sacubitril-valsartan (ENTRESTO) 24-26 MG tablet, Take 1 tablet by mouth 2 (Two) Times a Day., Disp: , Rfl: ??? simvastatin (ZOCOR) 40 MG tablet, Take 40 mg by mouth Every Night., Disp: , Rfl: ??? SITagliptin (JANUVIA) 50 MG tablet, Take 50 mg by mouth Daily., Disp: , Rfl: ??? spironolactone (ALDACTONE) 25 MG tablet, Take 1 tablet by mouth Daily., Disp: 30 tablet, Rfl: 12 ??? torsemide (DEMADEX) 10 MG tablet, Take 1 tablet by mouth Daily., Disp: 90 tablet, Rfl: 1 HISTORY OF PRESENT ILLNESS: Patient returns for scheduled 3-month followup. Since he last saw us, he went to [facility] where they placed an ICD on 12/06/16. He had no complications with surgery and has not sustained any shocks since having his device implanted. He has had a cold for the past2 weeks and was hoping that overall he would have more energy or feel a little bit better after having his device placed. He denies any chest pain and does not use nitroglycerin. Occasionally he has had some intermittent GERD which was relieved with Tums. He denies any shortness of breath or edema.He is scheduled to go back up to [facility] in February 2017 for reassessment including echocar diogram. He did have Pneumovax, as well as influenza immunization, in November 2016. Patient otherwise denies chest pain, shortness of breath, PND, edema, palpitations, syncope or presyncope at this time. He is accompanied to the office today by his . Review of Systems Constitution: Positive for weight gain. Cardiovascular: Positive for dyspnea on exertion. Respiratory: Positive for cough and snoring. Endocrine: Positive for polydipsia. Hematologic/Lymphatic: Bruises/bleeds easily. Skin: Positive for dry skin and poor wound healing. Gastrointestinal: Positive for heartburn. Neurological: Positive for difficulty with concentration, dizziness and loss of balance. Allergic/Immunologic: Positive for environmental allergies. Obtained and otherwise negative except as outlined in problem list and HPI. Procedures Objective: Vitals: 01/13/17 1439 01/13/17 1441 BP: 103/68 91/64 BP Location: Left arm Left arm Patient Position: Sitting Standing Pulse: 83 88 Weight: 267 lb (121 kg) Height: 75 (190.5 cm) Body mass index is 33.37 kg/(m^2). Last weight: 254 lbs. Physical Exam Constitutional: He is oriented to person, place, and time. He appears well- developed and well-nourished. Neck: No JVD present. Carotid bruit is not present. No thyromegaly present. Cardiovascular: Regular rhythm, S1 normal and S2 normal. Exam reveals no gallop, no S3 and no friction rub. Murmur heard. High-pitched blowing holosystolic murmur is present at the apex Pulses: Dorsalis pedis pulses are 2+ on the right side, and 2+ on the left side. Posterior tibial pulses are 2+ on the right side, and 2+ on the left side. Pulmonary/Chest: Effort normal. [...] warm, dry and intact. No rash noted. ICD site CDI Vitals reviewed. Lab Review: Lab Results Component Value Date GLUCOSE 106 (H) 07/06/2016 BUN 13 07/06/2016 CREATININE 1.00 07/06/2016 EGFRIFNONA 75 07/06/2016 BCR 13.0 07/06/2016 CO2 29.0 07/06/2016 CALCIUM 9.2 07/06/2016 ALBUMIN 3.70 07/06/2016 LABIL2 1.0 (L) 07/06/2016 AST 27 07/06/2016 ALT 25 07/06/2016 Lab Results Component Value Date WBC 7.17 07/05/2016 HGB 14.1 07/05/2016 HCT 44.7 07/05/2016 MCV 100.2 (H) 07/05/2016 PLT 269 07/05/2016 Assessment: Patient with right and left heart catheterization in June 2016 with EF of 0.10 followed by a cardiacMRI in July 2016 demonstrating LVEF of 0.17. Patient has been seen by Dr. Acevedo at the [facility] and had a Medtronic ICD placed 12/06/16. He is scheduled to go back to [facility] in February 2017 with an echocardiogram. Diagnosis Plan 1. Cardiomyopathy, unspecified type Patient to have follow-up echocardiogram in February 2017 2. Coronary artery disease involving eyak coronary artery of eyak heart without angina pectorisStable 3. Essential hypertension Controlled 4. Mixed hyperlipidemia No new labs Plan: 1. Patient to continue current medications and close follow up with the above providers. 2. Tentative cardiology follow up in June 2017, or patient may return sooner PRN. Scribed for Ky Morataya MD by Carmelina Huang APRN. 01/13/2017 2:46 PM I, Ky Morataya MD, [facility], personally performed the services described in this documentation as scribed by the above named individual in my presence, and it is both accurate and complete. At 4:02 PM on 01/13/2017 documented in this encounter Plan of Treatment Upcoming Encounters Date Type Department Care Team (Late st Contact Info) Description 03/02/2024 2:45 PM EST Telemedicine [facility] SLEEP MEDICINE [address] [facility] [address] [address] [place] [address] Rosalino Tom, HOSPITALITY TEAM MEMBER [address] [place] [address] documented as of this encounter Visit Diagnoses Diagnosis Cardiomyopathy, unspecified type- Primary Coronary artery disease involving eyak coronary artery of eyak heart without angina pectoris Essential hypertension Unspecified essential hypertension Mixed hyperlipidemia documented in this encounter Care Teams Dairy Tester Relationship Specialty Start Date End Date Aba Espinoza MD [address] [facility] [address] [facility] [place] [address] PCP - General Family Medicine 07/05/16 07/19/17 documented as of this encounter
--- OUTSIDE RECORDS SUMMARY | 2024-01-18 14:50 | XMS_ITS | Clinical Summary ---
Author Organization [facility] Address [address] [id number] Care Team Providers Care Yard Switcher Name Role Phone Heriberto Quan MD Primary Care Provider [phone] Allergies Active Allergy Reactions Criticality Noted Date Comments Epinephrine Palpitations Low 09/15/2023 Contraindicated per cardiology Medications allopurinol (Zyloprim) 100 MG tablet Take 1 tablet (100 mg) by mouth 1 (one) time each day. 08/23/2023 Active ASPIRIN 81 MG chewable tablet Chew 1 tablet (81 mg) 1 (one) time each day. 07/07/2016 Active carvedilol (Coreg) 25 MG tablet Take 1 tablet (25 mg) by mouth 2 (two) times a day with meals. 02/23/2023 Active cyanocobalamin 1000 MCG tablet Take 1 tablet (1,000 mcg) by mouth 1 (one) time each day. 02/25/2023 Active Jardiance 25 MG Take 1 tablet (25 mg) by mouth 1 (one) time each day. Active ergocalciferol 1.25 MG (46320 UT) capsule Take 1 capsule (50,000 Units) by mouth 1 (one) time per week. Active escitalopram (Lexapro) 20 MG tablet Take 1 tablet (20 mg) by mouth 1 (one) time each day. Active glipiZIDE XL 5 MG 24 hr tablet Take 2 tablets (10 mg) by mouth 1 (one) time each day. And 5mg in evening 02/25/2023 Active Basaglar KwikPen 100 UNIT/ML injection pen Inject 26 Units under the skin 1 (one) time each day in the evening. 02/25/2023 Active magnesium oxide (Mag-Ox) 400 MG tablet Take 1 tablet (400 mg) by mouth 2 (two) times a day. Active rOPINIRole (Requip) 0.5 MG tablet Take 1 tablet (0.5 mg) by mouth every night. 04/12/2023 Active rosuvastatin (Crestor) 20 MG tablet Take 1 tablet (20 mg) by mouth every night. 06/23/2023 Active Entresto 24-26 MG tablet Take 1 tablet by mouth 2 (two) times a day. Active Ozempic, 1 MG/DOSE, 4 MG/3ML solution pen-injector 1 (one) time per week. Active spironolactone (Aldactone) 25 MG tablet Take 1 tablet (25 mg) by mouth 1 (one) time each day. 07/07/2016 Active torsemide (Demadex) 10 MG tablet Take 1 tablet (10 mg) by mouth if needed. 04/11/2023 Active diclofenac (Voltaren) 1 % topical gelIndications: Chronic pain of both knees Place 2-4 g on the skin 3 (three) times a day. Apply as directed to b/l knee 3-4x/d for knee pain 150 g 1 09/15/2023 Active Encounters Date Type Department Care Team Description 01/02/2024 2:20 PM EST Procedure Visit [facility] at [facility] [address] [place] [address] Michael Reynolds DO Chronic pain of both knees (Primary Dx); Bilateral primary osteoarthritis of knee 01/02/2024 Travel 12/26/2023 Travel 11/15/2023 Telephone [facility] [address] [place] [address] Michael Reynolds DO [facility] Clinical Concern/Question from Last 3 Months Family History Medical History Relation Name Comments Cardiac disorder Father Coronary artery disease Father Diabetes Father Hypertension Father Coronary artery disease Mother Hypertension Mother Stroke Mother Relation Name Status Comments Father Mother Social History Tobacco Use Types Packs/Day Years Used Date Smoking Tobacco: Every Day Smokeless Tobacco: Never Tobacco Cessation:Ready to Q uit: Not Asked; Counseling Given: Not Answered Alcohol Use Standard Drinks/Week Comments Yes 0 (1 standard drink = 0.6 oz pure alcohol) Alcoholic Drinks/day: History of alcohol abuse PHQ-2 Answer Date Recorded Patient Health Questionnaire-2 Score 0 09/29/2023 Sex and Gender Information Value Date Recorded Sex Assigned at Not on file Legal Sex Male 6:27 PM EDT Gender Identity Not on file Sexual Orientation Not on file Last Filed Vital Signs Vital Sign Reading Time Taken Comments Blood Pressure 105/62 01/02/2024 2:03 PM EST Pulse 68 01/02/2024 2:03 PM EST Temperature - - Respiratory Rate 18 01/02/2024 2:03 PM EST Oxygen Saturation 95% 01/02/2024 2:03 PM EST Inhaled Oxygen Concentration - - Weight 119 kg (262 lb) 01/02/2024 2:03 PM EST Height 190.5 cm (6' 3 ) 01/02/2024 2:03 PM EST Body Mass Index 32.75 01/02/2024 2:03 PM EST Plan of Treatment Health Maintenance Due Date Last Done Comments [facility]-Hepatitis C Screening 1950 [facility]-Medicare Annual Wellness (AWV) 1950 [facility]-/Child/Adol SDOH Screenings 1950 [facility]- SDOH Screenings 10/21/1969 [facility]-Adult SDOH Screenings 10/21/1969 CT Colonography 10/21/1996 Colonoscopy 10/21/1996 FIT-DNA 10/21/1996 FIT 10/21/1996 FOBT 10/21/1996 Sigmoidoscopy 10/21/1996 [facility]-Colorectal Cancer Screening 10/21/1996 [facility]-Abdominal Aortic Aneurysm (AAA) Screening 10/21/2016 [id number] Vaccine (2023- season) 2023 12/30/2020, 03/18/2020, 02/20/2020 [facility]-Depression Screening 09/28/2024 09/29/2023 [facility]-RSV Vaccine: 60+ Years or (1 - 1-dose 75+ series) 10/21/2026 [facility]-DTaP,Tdap,and Td Vaccines (2 - Td or Tdap) 02/06/2030 02/07/2020 [facility]-Hepatitis A Vaccines Aged Out 03/10/2018 No longer eligible based on patient's age to complete this topic [facility]-Zoster Vaccines Completed 04/15/2020, 02/07/2020, 02/06/2020 [facility]-Pneumococcal Vaccine: 65+ Years Completed 02/04/2022, 01/24/2020, 12/07/2016 [facility]-Influenza Vaccine Completed 10/13/2023 , 10/12/2021, 12/31/2020, Additional history exists [facility]-Obesity Intervention Completed 024, 09/29/2023, 09/15/2023 [facility]-HIB Vaccines Aged Out No longer e ligible based on patient's age to complete this topic [facility]-HPV Vaccines Aged Out No longer e ligible based on patient's age to complete this topic [facility]-IPV Vaccines Aged Out No longer e ligible based on patient's age to complete this topic [facility]-Rotavirus Vaccines Aged Out No lo nger eligible based on patient's age to complete this topic Insurance MEDICARE Care Teams Yard Switcher Relationship Specialty Start Date End Date Heriberto Quan MD [address] [place] [address] PCP - General 08/24/23
--- OUTSIDE RECORDS SUMMARY | 2024-01-18 14:50 | XMS_ITS | Encounter Summary ---
Author Organization [facility] Address [address] [place] [address] Care Team Providers Care Blow Up Operator Name Role Phone Aba Espinoza MD Primary Care Provider + [phone] Encounter Details Date Type Department Care Team (Late st Contact Info) Description 01/26/2017 Telephone [facility] CARDIOLOGY [address] [facility] [address] [place] [address] Glendy Gaviria RN Social History Tobacco Use Types Packs/Day [...] encounter Miscellaneous Notes * Telephone Encounter - Glendy Espinal RN - 01/26/2017 12:50 PM EST Pharmacy called for refill for Carvedilol 3.125 mg take one tablet daily BID with meals. Refill approved. documented in this encounter Plan of Treatment Upcoming Encounters Date Type Department Care Team (Late st Contact Info) Description 03/02/2024 2:45 PM EST Telemedicine [facility] SLEEP MEDICINE [address] [facility] [address] [place] [address] Rosalino Tom, OCCUPATIONAL HEALTH AND SAFETY ADVISER [address] [place] [address] documented as of this encounter Visit Diagnoses Not on filedocumented in this encounter Care Teams Blow Up Operator Relationship Specialty Start Date End Date Aba Espinoza MD [address] [facility] [address] [place] [address] PCP - General Family Medicine 07/05/16 07/19/17 documented as of this encounter
--- OUTSIDE RECORDS SUMMARY | 2024-01-18 14:50 | XMS_ITS | Encounter Summary ---
Author Organization [facility] Address [address] [place] [address] Care Team Providers Care Deputy District Customs Director Name Role Phone Aba Espinoza MD Primary Care Provider + [phone] Reason for Visit * Reason Onset Date Comments Med Refill 03/02/2017 Encounter Details Date Type Department Care Team (Late st Contact Info) Description 03/02/2017 Refill [facility] CARDIOLOGY [address] [place] [address] [address] [place] [address] Glendy Gaviria RN Med Refill Social History Tobacco Use [...] Telephone Encounter - Glendy Espinal RN - 03/02/2017 2:19 PM EST Refilled medication per patient request documented in this encounter Plan of Treatment Upcoming Encounters Date Type Department Care Team (Late st Contact Info) Description 03/02/2024 2:45 PM EST Telemedicine [facility] SLEEP MEDICINE [address] [facility] [address] [place] [address] Rosalino Tom, APARTMENT COORDINATOR [address] [place] [address] documented as of this encounter Visit Diagnoses Not on filedocumented in this encounter Care Teams Deputy District Customs Director Relationship Specialty Start Date End Date Aba Espinoza MD [address] [facility] [address] [place] [address] PCP - General Family Medicine 07/05/16 07/19/17 documented as of this encounter
--- OUTSIDE RECORDS SUMMARY | 2024-01-18 14:50 | XMS_ITS | Encounter Summary ---
Author Organization [facility] Address [address] [place] [address] Care Team Providers Care Loom Checker Name Role Phone Aba Espinoza MD Primary Care Provider + [phone] Reason for Visit * Auth/Cert Specialty Diagnoses / Procedures Referred By Kadie casillas Referred To Contact Diagnoses Encounter for screening for malignant neoplasm of colon Z12.11 (ICD-10-CM) - Encounter for screening for malignant neoplasm of colon Procedures COLONOSCOPY Referral ID Status Reason Start Date Expiration Date Visits Re quested Visits Authorized [id number] 1 1 Encounter Details Date Type Department Care Team (Late st Contact Info) Description 07/18/2017 12:37 PM EDT Anesthesia Event [facility] SU[facility] [address] [place] [address] Rodolfo Vu MD [address] [place] [address] Anesthesia Record Procedure Summary Procedure Name Responsible Anesthesiologist Anesthesia Start Time Anesthesia Stop Time COLONOSCOPY Rodolfo Vu MD 07/18/17 1237 8 1304 Events Date Time Event Comment 07/18/2017 1121 1237 AN Equip Check 1237 An Start 1237 An Start Data 1241 An Induction The patient was reevaluated immediately before moderate or deep sedation use and before anesthesia induction. 1259 an stop data 1304 Handoff to RN The following has been [...] of report from the receiving PACU/ICU team 1304 An Stop Meds Name Total propofol (DIPRIVAN) injection 50 mg lidocaine 1% 50 mg midazolam (VERSED) injection 2 mg/2 mL 2 mg lactated ringers infusion 550 mL * Agents Name O2 * Blood No blood administrations on file. Lines, Drains, and Airways Type Details Placement Removal Peripheral IV Placement Date: 06/01; Catheter Size: 20 G; Orientation: Left; Location: Hand; Site Prep: Chlorhexidine; Inserted by: Juan Trotter RN; Insertion Attempts: 3; Patient Tolerance: Tolerated well; Removal Date: 07/18/17; Removal Time: 1355 07/18/17 0000 by Caty James RN 07/18/17 1355 by Shakir English RN documented in this encounter Social History Tobacco [...] OR Notes * Anesthesia Postprocedure Evaluation - Moise Borrego CRNA - 07/18/2017 1:04 PM EDT Patient: Dane Ray Procedure Summary Date: 07/18/17 [facility] / [facility] Anesthesia Start: 1237 Anesthesia Stop: 1304 Procedure: COLONOSCOPY (N/A ) Diagnosis: Surgeon: Liban Pierce MD Provider: Rodolfo Vu MD Anesthesia Type: MAC ASA Status: 4 Anesthesia Type: MAC Last vitals BP (!) 88/54 (07/18/17 1301) Temp 97.8 ??F (36.6 ??C) (07/18/17 1301) Pulse 64 (07/18/17 1301) Resp 16 (07/18/17 1301) SpO2 98 % (07/18/17 1301) Post Anesthesia Care and Evaluation Patient location during evaluation: PACU Patient participation: complete - patient participated Level of consciousness: awake and alert Pain score: 0 Pain management: adequate Airway patency: patent Anesthetic complications: No anesthetic complications PONV Status: none Cardiovascular status: hemodynamically stable and acceptable Respiratory status: nonlabored ventilation, acceptable and nasal cannula Hydration status: acceptable * Anesthesia Preprocedure Evaluation - Loly Gilbert CRNA - 07/18/2017 11:10 AM EDT Anesthesia Evaluation Patient summary reviewed and Nursing notes reviewed NPO Solid Status: > 8 hours NPO Liquid Status: > 8 hours Airway Mallampati: II TM distance: >3 FB Neck ROM: full No difficulty expected Dental (+) poor dentition Pulmonary breath sounds clear to auscultation Cardiovascular Exercise tolerance: poor (<4 METS) Rhythm: regular Rate: normal Neuro/Psych GI/Hepatic/Renal/Endo Musculoskeletal Abdominal Substance History MOLDING ASSOCIATE Other Phys Exam Other: This patient looks better than his numbers suggest I talked to him and his about sedation for this procedure He understands he is not getting a full anesthetic and maybe aware Anesthesia Plan ASA 4 MAC intravenous induction Anesthetic plan and risks discussed with patient. Plan discussed with ELOINA. documented in this encounter Plan of Treatment Upcoming Encounters Date Type Department Care Team (Late st Contact Info) Description 03/02/2024 2:45 PM EST Telemedicine [facility] SLEEP MEDICINE [address] [address] Rosalino Tom, WATCHER [employer] [address] [place] [address] documented as of this encounter Visit Diagnoses Not on filedocumented in this encounter Administered Medications Inactive Administered Medications - up to 3 most recent administrations Medication Order MAR Action Action Date Dose Rate Site lactated ringers infusion 9 mL/hr, Intravenous, Continuous, Starting on Tue07/18/17 at 1315, May switch to NS IV at KVO if renal / if indicated New Bag 07/18/2017 12:37 PM EDT New Bag 07/18/2017 12:31 PM EDT 9 mL/hr 9 mL/hr lidocaine (XYLOCAINE) 1 % injection As Needed, Starting on Tue07/18/17 at 1240 Given 07/18/2017 12:40 PM EDT 5 0 mg midazolam (VERSED) injection Intravenous, As Needed, Starting on Tue07/18/17 at 1240 Given 07/18/2017 12:40 PM EDT 2 mg Propofol (DIPRIVAN) injection Intravenous, As Needed, Starting on Tue07/18/17 at 1240 Given 07/18/2017 12:40 PM EDT 50 mg documented in this encounter Care Teams Loom Checker Relationship Specialty Start Date End Date Aba Espinoza MD [address] [facility] [address] [facility] [address] [place] [address] PCP - General Family Medicine 07/05/16 07/19/17 documented as of this encounter
--- OUTSIDE RECORDS SUMMARY | 2024-01-18 14:50 | XMS_ITS | Encounter Summary ---
Author Organization [facility] Address [address] [place] [address] Care Team Providers Care Senior Catering Sales Manager Name Role Phone Aba Espinoza MD Primary Care Provider + [phone] Reason for Visit * Auth/Cert Specialty Diagnoses / Procedures Referred By Kadie casillas Referred To Contact Diagnoses Encounter for screening for malignant neoplasm of colon Z12.11 (ICD-10-CM) - Encounter for screening for malignant neoplasm of colon Procedures COLONOSCOPY Referral ID Status Reason Start Date Expiration Date Visits Re quested Visits Authorized [id number] 1 1 Encounter Details Date Type Department Care Team (Late st Contact Info) Description 07/18/2017 10:30 AM EDT - 07/18/2017 11:14 AM EDT Surgery [facility] [address] [place] [id number] Liban Pierce MD [address] [facility] [place] [address] COLONOSCOPY Social History Tobacco Use Types Packs/Day Years [...] Sign Reading Time Taken Comments Blood Pressure 119/81 07/18/2017 10:26 AM EDT Pulse 62 07/18/2017 10:26 AM EDT Temperature 36.4 ??C (97.5 ??F) 07/18/2017 10:26 AM E DT Respiratory Rate 16 07/18/2017 10:26 AM EDT Oxygen Saturation 97% 07/18/2017 10:26 AM EDT Inhaled Oxygen Concentration - - Weight 122 kg (269 lb 12.8 oz) 07/18/2017 10:34 AM EDT Height 190.5 cm (6' 3 ) 07/18/2017 10:26 AM EDT Body Mass Index 33.72 07/18/2017 10:26 AM EDT documented in this encounter Discharge Instructions * Attachments The following attachments cannot be sent through Care Everywhere. * COLONOSCOPY ADULT CARE AFTER HBAG-LY-AKOI ([facility]WK) * MODERATE CONSCIOUS SEDATION ADULT CARE AFTER ([facility]) documented in this encounter Medications at Time [...] 12:31 PM EDT Pre-Op H&P Dane Ray [id number] Chief complaint: Screening colonoscopy HPI: Patient [...] or dyspnea on exertion. Follows with Dr. Abernathy/[facility] for ICM s/p ICD and not cardiac surgical candidate. Last TTE 06/2017 with [facility] office visit (see chart for note) [...] Heart Cath; Surgeon: Steve Valentino MD; Location: [facility] CATH INVASIVE LOCATION; Service: ??? CARDIAC DEFIBRILLATOR [...] Rectal [CSGA] COLONOSCOPY Procedure Note Dane Ray 07/18/2017 Pre-op Diagnosis: Lung cancer screening Post-op Diagnosis: Right colon polyp Procedure(s): COLONOSCOPY and polypectomy Surgeon(s): Liban Pierce MD Anesthesia: Sedation Staff: Endo Check Writer: Gracie Dubose Endo Nurse: Caty James RN [...] Info) Description 03/02/2024 2:45 PM EST Telemedicine [facility]EP [facility]IC[facility] [address] [facility] [address] [place] [address] Rosalino Tom, COLLETER [address] [phone] documented as of this encounter Procedures Procedure [...] Case Report Surgical Pathology Report ? Case: [id number] ? Authorizing Provider: ??Liban Pierce MD ?Collected: ? 07/18/2017 12:53 PM ? Ordering Location: ? [facility] ?? Received: ?07/18/2017 01:53 PM ? ENDO SUITES ? Pathologist: ? Heriberto Shah MD ? Specimen: ?Large Intestine, Right / Ascending Colon, cold snare polyp ? 07/19/2017 5:22 PM EDT [facility] Clinical Information The working history is colon polyps. 07/19/2017 5:22 PM EDT [facility] Final Diagnosis CECUM POLYP: Tubular adenoma without high-grade dysplasia. JFJ/cuong 07/19/2017 5:22 PM EDT [facility] Gross Description Received in formalin labeled as right colon cold snare polyp are two pieces of mistry soft tissue aggregating 1.0 x 1.0 x 0.3 cm. The larger piece of tissue is sectioned and the specimen is submitted entirely in cassette 1. MICKIE/cydney 07/19/2017 5:22 PM EDT [facility] Microscopic Description Sections show a tubular proliferation of crypts lined by cells with enlarged, hyperchromatic, overlapping nuclei. There is no evidence of in-situ or invasive carcinoma. 07/19/2017 5:22 PM EDT [facility] Embedded Images 07/19/2017 5:22 PM EDT [facility] Tissue Ascending colon structure / Unknown 07/18/2017 12:53 PM EDT 07/18/2017 1:53 PM EDT us Liban Pierce MD PATHOLOGY/CYTOLOGY ORDERABLES Final Result [facility]
[address] [place] [address], * ECG 12 Lead (07/18/2017 11:27 AM [...] ECG ORDERABLES Final Result Performing Organization Address [facility] Phone Number ECG * OR Potassium (07/18/2017 11:02 AM EDT) Potassium, OR 4.20 3.5 - 5.3 mmol/L 07/18/2017 11:13 AM EDT [facility] Blood Right upper arm structure / Unknown Venipuncture / Unknown 07/18/2017 11:02 AM EDT 07/18/2017 11:11 AM EDT Philip Raman MD LAB BLOOD ORDERABLES Final R esult Performing Organization Address [facility] Phone Number [facility]
[address] [place] [address], * (ABNORMAL) POC Glucose Once (07/18/2017 10:38 AM EDT) Glucose 132(H) 70 - 130 mg/dL 07/18/2017 10:41 AM EDT [facility] Blood 07/18/2017 10:3 8 AM EDT 07/18/2017 10:41 AM EDT Narrative [facility] - 07/18/2017 10:41 AM EDT Meter: [id number] [employer] Job Titles: [id number] Robert Frazier Liban Pierce MD POINT OF CARE TEST ORDERABLES Final Result Performing Organization Address [facility] [employer] Phone Number [facility]
[address] [place] [address], documented in this encounter Visit Diagnoses Not [...] CRNA) documented in this encounter Care Teams Senior Catering Sales Manager Relationship Specialty Start Date End Date Aba Espinoza MD [address] [facility] [address] [facility] [address] [place] [address] PCP - General Family Medicine 07/05/16 07/19/17 documented as of this encounter
--- OUTSIDE RECORDS SUMMARY | 2024-01-18 14:50 | XMS_ITS | Encounter Summary ---
Author Organization [facility] Address [address] [place], [place] [id number] Care Team Providers Care Manager Party Name Role Phone Heriberto Quan MD Primary Care Provider Reason for Referral * Consultation (Routine) - Authorized Specialty Diagnoses / Procedures Referred By Kadie casillas Referred To Contact Orthopaedic Surgery Diagnoses Chronic pain of both knees Bilateral primary osteoarthritis of knee Michael Reynolds DO [address] [address] Phone: tel: fax: Referral ID Status Reason Start Date Expiration Date V isits Requested Visits Authorized [id number] Authorized 01/02/2024 07/03/2025 1 1 Scheduling Instructions [facility] - Dr Moura Reason for Visit * Other Medical (Routine) - Closed Specialty Diagnoses / Procedures Referred By Kadie casillas Referred To Contact Physical Medicine and Rehabilitation Diagnoses Chronic pain of both knees Bilateral primary osteoarthritis of knee Procedures Injection - Large Joint Michael Reynolds DO [address] [address] Phone: tel: fax: Referral ID Status Reason Start Date Expiration Date Visits Re quested Visits Authorized [id number] Closed 09/29/2023 03/30/2025 1 1 Encounter Details Date Type Department Care Team (Late st Contact Info) Description 01/02/2024 2:20 PM EST Procedure Visit [facility] [address] [place] [address] Michael Reynolds DO [address] [place] [address] Chronic pain of both knees (Primary Dx); Bilateral primary osteoarthritis of knee Social History Tobacco Use Types Packs/Day Years Used Date Smoking Tobacco: Every Day Smokeless Tobacco: Never Alcohol Use Standard Drinks/Week Comments Yes 0 (1 standard drink = 0.6 oz pure alcohol) Alcoholic Drinks/day: History of alcohol abuse PHQ-2 Answer Date Recorded Patient Health Questionnaire-2 Score 0 09/29/2023 Sex and Gender Information Value Date Recorded Sex Assigned at Not on file Legal Sex Male 6:27 PM EDT Gender Identity Not on file Sexual Orientation Not on file documented as [...] Mass Index 32.75 01/02/2024 2:03 PM EST documented in this encounter Miscellaneous Notes * Progress Notes - Cal Carl, - 01/02/2024 2:20 PM EST Physical Medicine and Rehabilitation Outpatient Follow Up Visit Chief Complaint: BL Knee Pain Background History: Patient is a 73 year old male w/ BL knee pain R>L in the setting of BL Knee OA. Patient was lastseen 09/29/23 at which time he received BL knee CSI. Interval History: Patient states that he is doing okay. States that he is having L>R knee pain. Worked w/ PT whichsomewhat helped, but flared up the pain in his knees, so he stopped going the in person visits. Continues home exercises. States that the CSI only lasted a month and a half and did not provide as much pain relief as he was hoping for. It also increased his blood pressure and blood glucose. States that he's been using frankincense that seems to help his bilateral knee pain. Would like to avoid further injections but asks about MAYBERRY injection. Would prefer to discuss w/ surgeon. Details of past medical history, surgical history, family history, and social history reviewed in the medical record. Allergies: Allergies Allergen Reactions Epinephrine Palpitations Contraindicated per cardiology Medications: Current Outpatient Medications: allopurinol (Zyloprim) 100 MG tablet, Take 1 tablet (100 mg) by mouth 1 (one) time each day., Disp:, Rfl: ASPIRIN 81 MG chewable tablet, Chew 1 tablet (81 mg) 1 (one) time each day., Disp: , Rfl: Basaglar KwikPen 100 UNIT/ML injection pen, Inject 26 Units under the skin 1 (one) time each day inthe evening., Disp: , Rfl: carvedilol (Coreg) 25 MG tablet, Take 1 tablet (25 mg) by mouth 2 (two) times a day with meals., Disp: , Rfl: cyanocobalamin 1000 MCG tablet, Take 1 tablet (1,000 mcg) by mouth 1 (one) time each day., Disp: , Rfl: diclofenac (Voltaren) 1 % topical gel, Place 2-4 g on the skin 3 (three) times a day. Apply as directed to b/l knee 3-4x/d for knee pain, Disp: 150 g, Rfl: 1 Entresto 24-26 MG tablet, Take 1 tablet by mouth 2 (two) times a day., Disp: , Rfl: ergocalciferol 1.25 MG (67917 UT) capsule, Take 1 capsule (50,000 Units) by mouth 1 (one) time per week., Disp: , Rfl: escitalopram (Lexapro) 20 MG tablet, Take 1 tablet (20 mg) by mouth 1 (one) time each day., Disp: ,Rfl: glipiZIDE XL 5 MG 24 hr tablet, Take 2 tablets (10 mg) by mouth 1 (one) time each day. And 5mg in evening, Disp: , Rfl: Jardiance 25 MG, Take 1 tablet (25 mg) by mouth 1 (one) time each day., Disp: , Rfl: magnesium oxide (Mag-Ox) 400 MG tablet, Take 1 tablet (400 mg) by mouth 2 (two) times a day., Disp:, Rfl: Ozempic, 1 MG/DOSE, 4 MG/3ML solution pen-injector, 1 (one) time per week., Disp: , Rfl: rOPINIRole (Requip) 0.5 MG tablet, Take 1 tablet (0.5 mg) by mouth every night., Disp: , Rfl: rosuvastatin (Crestor) 20 MG tablet, Take 1 tablet (20 mg) by mouth every night., Disp: , Rfl: spironolactone (Aldactone) 25 MG tablet, Take 1 tablet (25 mg) by mouth 1 (one) time each day., Disp: , Rfl: torsemide (Demadex) 10 MG tablet, Take 1 tablet (10 mg) by mouth if needed., Disp: , Rfl: The following portions of the chart were reviewed this encounter and updated as appropriate: Tobacco Allergies Meds Problems Med Hx Surg Hx Fam Hx ROS: 14 point ROS negative except for above. Physical Examination: Visit Vitals BP 105/62 Pulse 68 Ht 1.905 m (6' 3 ) Wt 119 kg (262 lb) SpO2 95% BMI 32.75 kg/m?? Some recent data might be hidden Constitutional: Well-developed, no acute distress and well nourished. Psychiatric: Follows commands and alert Eyes: EOMI and anicteric. NCAT. Neck: supple, trachea midline Respiratory: Normal effort and normal rate. Cardiovascular: No edema and no clubbing. Skin: Warm, dry and intact, no cyanosis Neurologic: Speech is fluent, muscle tone normal. MSK: Gait intact. Range of motion was within functional limits Motor Exam: Moving all extremities against gravity. Tenderness to palpation around the bilateral knee joints L>R DATA: XRAY === 09/15/23 === XR KNEE RIGHT 4+ VIEWS - Narrative - CLINICAL INDICATION: pain TECHNIQUE: XR KNEE LEFT 4+ VIEWS, XR KNEE RIGHT 4+ VIEWS COMPARISON: None. FINDINGS: 4 views of the left knee show minimal chondrocalcinosis in the medial compartment. Normal joint space and alignment. Minimal degenerative changes of the patellofemoral joint. No fracture or osteonecrosis. No effusion. Minimal arterial calcification. 4 views of the right knee show lateral compartment joint space narrowing and osteophyte formation. Surgical clips in the posterior medial soft tissues. Dystrophic calcifications in the distribution of the iliotibial band possibly related to prior injection. Skin calcifications are appreciated in the anterior soft tissues of the lower leg. Minimal arterial calcification. - Impression - 1. Severe osteoarthritis of the right knee. 2. Minimal left patellofemoral degenerative changes. CRITICAL RESULT: No. COMMUNICATION: Per this written report. Drafted by Wero Galvez MD on 09/15/2023 12:57 PM Final report signed by Wero Galvez MD on 09/15/2023 1:01 PM Assessment: Dane Ray is a 73 y.o. male with severe OA of the R knee, mild OA of the L knee. This is a/an Chronic Worsening problem Diagnoses and all orders for this visit: Chronic pain of both knees - Injection - Large Joint Bilateral primary osteoarthritis of knee - Injection - Large Joint Plan: - Will refer to Orthopedic Surgeon, Dr. Waterman, at [facility] at patient's request - Patient would like to discuss options for knee replacement given that he is trying to avoid further injections - If patient does not or can not proceed with surgery, could trial MAYBERRY injection to ascertain if this could provide pain relief - Could receive this from ortho surgeon office if wishes to proceed - Could consider cryo if other options not available Follow up if symptoms worsen or fail to improve. Cosigned by Michael Reynolds DO at 01/02/2024 3:11 PM EST Associated attestation - Michael Reynolds DO - 01/02/2024 3:11 PM EST I saw and evaluated the patient with the resident/fellow. I discussed the case with the resident/fellow and agree with the findings and plan as documented. documented in this encounter Plan of Treatment Scheduled Referrals Name Type Priority Associated Diagnoses Orde r Schedule Ambulatory referral to Orthopaedics Joint Reconstruction Outpatient Referral Routine Chronic pain of both knees Bilateral primary osteoarthritis of knee 1 Occurrences starting 01/02/2024 until 07/01/2025 documented as of this encounter Visit Diagnoses Diagnosis Chronic pain of both knees- Primary Bilateral primary osteoarthritis of knee documented in this encounter Additional Health Concerns Assessment Noted Time A fall risk assessment has been complete d for the patient 01/02/2024 2:07 PM EST A Body Mass Index follow-up plan has been documented for the patient 01/02/2024 3:11 PM EST documented as of this encounter Care Teams Manager Party Relationship Specialty Start Date End Date Heriberto Quan MD [address] [place] [address] PCP - General 08/24/23 documented as of this encounter
--- OUTSIDE RECORDS SUMMARY | 2024-01-18 14:50 | XMS_ITS | Encounter Summary ---
Author Organization [facility] Address [address] [place] [address] Care Team Providers Care Manager Market Intelligence Name Role Phone Aba Espinoza MD Primary Care Provider + [phone] Reason for Visit * Reason Comments Congestive Heart Failure Consult Encounter Details Date Type Department Care Team (Late st Contact Info) Description 10/13/2016 9:30 AM EDT Consult [facility] CARDIOLOGY [address] [facility] [address] [place] [address] Lucas Morataya MD [address] [facility] [address] [place] [id number] Cardiomyopathy (Primary Dx); Coronary artery disease involving twin hills coronary artery of twin hills heart without angina pectoris; Essential hypertension; Mixed hyperlipidemia; Acute on chronic systolic congestive heart failure Social History Tobacco Use Types Packs/Day Years [...] Sign Reading Time Taken Comments Blood Pressure 95/63 10/13/2016 9:24 AM EDT Pulse 74 10/13/2016 9:24 AM EDT Temperature - - Respiratory Rate - - Oxygen Saturation - - Inhaled Oxygen Concentration - - Weight 115 kg (254 lb 3.2 oz) 10/13/2016 9:15 AM EDT Height 190.5 cm (6' 3 ) 10/13/2016 9:15 AM EDT Body Mass Index 31.77 10/13/2016 9:15 AM EDT documented in this encounter Progress Notes * Lucas Morataya MD - 10/13/2016 9:30 AM EDTAssociated Order(s): ECG 12-LEAD Subjective: Encounter Date:10/13/2016 Patient ID: Dane Ray is a 65 y.o. 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 PHYSICIAN: Aba Espinoza MD REMOTE SPECIAL DIET COOK: Steve Valentino MD HEART FAILURE/TRANSPLANT SPECIAL DIET COOK: Liss Acevedo MD ([facility]) CARDIOTHORACIC SURGEON: Surya Lopez MD; Dr. Bird at [facility] Chief Complaint: Chief Complaint Patient presents with ??? Congestive Heart Failure Consult Problem List: 1. Coronary artery disease/ischemic cardiomyopathy A. Remote exercise stress test x 6: Negative per patient-data deficit, in [place] B. Echocardiogram 07/13/16; moderately enlarged left atrium, [...] in size, RVEF 34%, biatrial enlargement F. CCS Class I chest discomfort/NYHA class II dyspnea with exertion 2. Occasional PVC's 3. Type 2 diabetes mellitus, hemoglobin A1c 7% 4. Hypertension 5. Hyperlipidemia 6. Former tobacco use; on Chantix, quit 08/13/16 7. Mild obesity; BMI 31 8. Anxiety 9. Surgical history: [facility] No Known Allergies Current Outpatient Prescriptions: ??? aspirin 81 MG chewable tablet, Chew 1 tablet Daily., Disp: 30 tablet, Rfl: 12 ??? carvedilol (COREG) 3.125 MG tablet, Take 3.125 mg by mouth 2 (Two) Times a Day With Meals., Disp: , Rfl: ??? escitalopram (LEXAPRO) 20 MG tablet, Take 20 mg by mouth Daily., Disp: , Rfl: ??? furosemide (LASIX) 40 MG tablet, Take 40 mg by mouth Daily., Disp: , Rfl: ??? glipiZIDE (GLUCOTROL) 5 MG tablet, Take 5 mg by mouth 2 (Two) Times a Day Before Meals., Disp: , Rfl: ??? metFORMIN (GLUCOPHAGE) 1000 MG tablet, Take 1,000 mg by mouth 2 (Two) Times a Day With Meals., Disp: , Rfl: ??? potassium chloride (K-DUR) 10 MEQ CR tablet, Take 10 mEq by mouth Daily., Disp: , Rfl: ??? simvastatin (ZOCOR) 40 MG tablet, Take 40 mg by mouth Every Night., Disp: , Rfl: ??? SITagliptin (JANUVIA) 50 MG tablet, Take 50 mg by mouth Daily., Disp: , Rfl: ??? spironolactone (ALDACTONE) 25 MG tablet, Take 1 tablet by mouth Daily., Disp: 30 tablet, Rfl: 12 ??? valsartan (DIOVAN) 80 MG tablet, Take 40 mg by mouth 2 (Two) Times a Day., Disp: , Rfl: History of Present Illness This 65-year-old white male presents to establish care for his cardiomyopathy. He was seen previously for a heart catheterization by Dr. Valentino. He went to his physician's office for a scrape on hisshin, and when the physician auscultated his chest, she found an abnormality (PVCs) and suggested an echocardiogram. His echocardiogram showed an EF of 10%. He has had multiple stress tests in the past, but none of them required a left heart catheterization or treatment prior to June 2016. He had a right and left heart catheterization in June 2016 and was found to have 2-vessel CAD, as well as cardiomyopathy, with an EF at that time of approximately 20%. He spoke with Dr. Lopez, and after having a cardiac MRI, he was not found to be a candidate for surgery and was sent to the [facility] for consideration of an LVAD and/or heart transplant. The patient went to [facility] and spoke to Dr. Bird and very briefly with the transplant surgeon, and the patient and his girlfriend were not happy with their demeanor and went to [facility] for evaluation. Once he talked to Dr. Kristina strickland [facility], she suggested that he had a 6-month waiting period for any type of surgery because he was a smoker. He stopped smoking on 08/13/16 and has been wearing a LifeVest. Initially, he was started on carvedilol, Entresto, and furosemide, but Entresto was discontinued and valsartan started because she wanted my lower number (diastolic) to go up with my blood pressure. Occasionally,he has some chest discomfort, but it resolves with rest; he does not have nitroglycerin sublingual available at home. He has noticed some shortness of breath with his activity, but he has still been able to do some hiking. 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 He denies any palpitations, arrhythmias, heart monitors in the past, CVA's, TIAs, seizures, DVTs, or PEs. Occasionally, he has mild edema in his right ankle. He has known hypertension, type 2 diabetes mellitus which is controlled with an A1c of 7%, and hyperlipidemia. He has smoked on and off for several years and smoked around one pack per day for two years. Prior to that, he had quit smoking for 8 yearsbut had smoked remotely. Cardiovascular Disease Risk Factors hyptertension, hyperlipidemia, diabetes mellitus, increased age, male gender Social History Social History ??? Marital status: Single Spouse name: N/A ??? Number of children: 3 ??? Years of education: N/A Occupational History ??? Not on file. Social History Main Topics ??? Smoking status: Former Smoker Types: Cigarettes Quit date: 08/13/2016 ??? Smokeless tobacco: Never Used ??? Alcohol use 7.2 oz/week 12 Cans of beer per week ??? Drug use: No ??? Sexual activity: Defer Other Topics Concern ??? Not on file Social History Narrative Family History Problem Relation Age of Onset ??? Heart disease Mother ??? Hypertension Mother ??? Stroke Mother ??? Heart disease Father ??? Hypertension Father ??? Diabetes Father Review of Systems Constitution: Positive for diaphoresis, weakness and night sweats. HENT: Negative. Eyes: Negative. Cardiovascular: Positive for chest pain and leg swelling. Negative for claudication, irregular heartbeat, near-syncope, palpitations, paroxysmal nocturnal dyspnea and syncope. Respiratory: Positive for shortness of breath and snoring. Endocrine: T2DM Hematologic/Lymphatic: Bruises/bleeds easily. Skin: Positive for dry skin and poor wound healing. Musculoskeletal: Negative. Gastrointestinal: Positive for bloating, change in bowel habit, constipation and heartburn. Negative for melena. Genitourinary: Positive for frequency. Neurological: Positive for dizziness. Negative for focal weakness, light- headedness and seizures. Psychiatric/Behavioral: The patient is nervous/anxious. Allergic/Immunologic: Negative. Obtained and negative except as outlined in problem list and HPI. ECG 12 Lead Date/Time: 10/13/2016 10:58 AM Performed by: LUCAS MORATAYA Authorized by: LUCAS MORATAYA Rhythm comments: Sinus rhythm with first-degree AV block, cannot rule out inferior infarct, age undetermined, abnormal ECG, 75 bpm Objective: Vitals: 10/13/16 0915 10/13/16 0922 10/13/16 0923 10/13/16 0924 BP: (!) 82/56 (!) 74/55 (!) 81/62 95/63 BP Location: Left arm Left arm Right arm Right arm Patient Position: Sitting Standing Standing Sitting Pulse: 74 80 84 74 Weight: 254 lb 3.2 oz (115 kg) Height: 75 (190.5 cm) Body mass index is 31.77 kg/(m^2). Physical Exam Constitutional: He appears well-developed and well-nourished. HENT: Head: Normocephalic and atraumatic. Mouth/Throat: Oropharynx is clear and moist and mucous membranes are normal. Eyes: Fundoscopic exam: The right eye shows AV nicking. The right eye shows no exudate and no hemorrhage. The left eye shows AV nicking. The left eye shows no exudate and no hemorrhage. Neck: Neck supple. No JVD present. Carotid bruit is not present. No thyromegaly present. Cardiovascular: Normal rate and regular rhythm. Exam reveals no gallop, no S3 and no friction rub. Murmur heard. Medium-pitched blowing holosystolic murmur is present with a grade of 2/6 at the apex Pulses: Dorsalis pedis pulses are 2+ on the right side, and 2+ on the left side. Posterior tibial pulses are 2+ on the right side, and 2+ on the left side. Pulmonary/Chest: Effort normal. He has decreased breath sounds. Abdominal: Soft. He exhibits no mass. There is no hepatosplenomegaly. There is no tenderness. Musculoskeletal: He exhibits edema (1+ right ankle). Lymphadenopathy: He has no cervical adenopathy. Neurological: He is alert. Skin: Skin is warm, dry and intact. Lab Review: Results for orders placed or performed during the hospital encounter of 07/05/16 CBC (No Diff) Result Value Ref Range WBC 7.17 3.50 - 10.80 10*3/mm3 RBC 4.46 4.20 - 5.76 10*6/mm3 Hemoglobin 14.1 13.1 - 17.5 g/dL Hematocrit 44.7 38.9 - 50.9 % MCV 100.2 (H) 80.0 - 99.0 fL MCH 31.6 (H) 27.0 - 31.0 pg MCHC 31.5 (L) 32.0 - 36.0 g/dL RDW 14.2 11.3 - 14.5 % RDW-SD 51.9 37.0 - 54.0 fl MPV 10.7 6.0 - 12.0 fL Platelets 269 150 - 450 10*3/mm3 Basic Metabolic Panel Result Value Ref Range Glucose 159 (H) 70 - 100 mg/dL BUN 15 9 - 23 mg/dL Creatinine 0.90 0.60 - 1.30 mg/dL Sodium 139 132 - 146 mmol/L Potassium 4.5 3.5 - 5.5 mmol/L Chloride 107 99 - 109 mmol/L CO2 24.0 20.0 - 31.0 mmol/L Calcium 9.3 8.7 - 10.4 mg/dL eGFR Non Amer 85 >60 mL/min/1.73 BUN/Creatinine Ratio 16.7 7.0 - 25.0 Anion Gap 8.0 3.0 - 11.0 mmol/L Comprehensive Metabolic Panel Result Value Ref Range Glucose 106 (H) 70 - 100 mg/dL BUN 13 9 - 23 mg/dL Creatinine 1.00 0.60 - 1.30 mg/dL Sodium 138 132 - 146 mmol/L Potassium 4.3 3.5 - 5.5 mmol/L Chloride 108 99 - 109 mmol/L CO2 29.0 20.0 - 31.0 mmol/L Calcium 9.2 8.7 - 10.4 mg/dL Total Protein 7.3 5.7 - 8.2 g/dL Albumin 3.70 3.20 - 4.80 g/dL ALT (SGPT) 25 7 - 40 U/L AST (SGOT) 27 0 - 33 U/L Alkaline Phosphatase 63 25 - 100 U/L Total Bilirubin 0.5 0.3 - 1.2 mg/dL eGFR Non Amer 75 >60 mL/min/1.73 Globulin 3.6 gm/dL A/G Ratio 1.0 (L) 1.5 - 2.5 g/dL BUN/Creatinine Ratio 13.0 7.0 - 25.0 Anion Gap 1.0 (L) 3.0 - 11.0 mmol/L P2Y12 Platelet Inhibition Result Value Ref Range P2Y12 Reactivity Unit 236 PRU POC Glucose Fingerstick Result Value Ref Range Glucose 152 (H) 70 - 130 mg/dL POC Glucose Fingerstick Result Value Ref Range Glucose 94 70 - 130 mg/dL POC Glucose Fingerstick Result Value Ref Range Glucose 131 (H) 70 - 130 mg/dL POC Glucose Fingerstick Result Value Ref Range Glucose 190 (H) 70 - 130 mg/dL POC Glucose Fingerstick Result Value Ref Range Glucose 108 70 - 130 mg/dL POC Glucose Fingerstick Result Value Ref Range Glucose 186 (H) 70 - 130 mg/dL POC Glucose Fingerstick Result Value Ref Range Glucose 124 70 - 130 mg/dL POC Glucose Fingerstick Result Value Ref Range Glucose 127 70 - 130 mg/dL Assessment: Patient with severe cardiomyopathy with LVEF approximately 15%, currently wearing a LifeVest. He isbeing seen/treated at the [facility] with possible LVAD and/or heart transplant in the future. He was told of a six-month waiting period due to his smoking history. He quit 08/13/16. We will discontinue his valsartan and substitute Entresto 24/26 mg twice a day to help improve his cardiomyopathy. In addition we will discontinue his Lasix and substitute torsemide 10 mg daily. We instructed the patient that he can take an additional 10 mg of torsemide when necessary for increased edema/shortness of breath. He is scheduled to see his physician at [facility] in November 2016 for further evaluation. We provided him with a CHF handbook today. We will also sign any papers for him to havea handicap permit. Lastly, we will provide him with nitroglycerin sublingual for intermittent chestpain. Patient will call us in 2 weeks with blood pressure readings. Patient to continue wearing LifeVest. Diagnosis Plan 1. Cardiomyopathy Discontinue valsartan. Begin Entresto 24/26 mg twice a day 2. Coronary artery disease involving [place] coronary artery of [place] heart without angina pectorisAwaiting further consultation from [facility] and/or heart transplant 3. Essential hypertension Controlled 4. Mixed hyperlipidemia Controlled 5. Acute on chronic systolic congestive heart failure Continue Lasix. Begin torsemide 10 mg daily. Instructed patient that he may have an additional 10 mg when necessary for edema/increased shortnessof breath Plan: 1. Patient to continue current medications and close follow up with the above providers. 2. Tentative cardiology follow up in December 2016 or patient may return sooner PRN. 3. Discontinue valsartan 4. Entresto 24/26 mg bid 5. Patient is to call us in 2 weeks with blood pressure readings 6. CHF handbook 7. Handicap permit 8. Discontinue lasix 9. Torsemide 10 mg daily and an additional 10 mg PRN for increased edema/SOB 10. NTG SL 11. Continue wearing LifeVest 12. 1 800 card provided Scribed for Lucas Morataya MD by Carmelina Huang, JAY. 10/13/2016 10:56 AM I, Lucas Morataya MD, [facility], personally performed the services described in this documentation as scribed by the above named individual in my presence, and it is both accurate and complete. At 11:31AM on 10/13/2016 documented in this encounter Plan of Treatment Upcoming Encounters Date Type Department Care Team (Late st Contact Info) Description 03/02/2024 2:45 PM EST Telemedicine [facility] SLEEP MEDICINE [address] [place] [id number] Rosalino Tom, FILLING MACHINE SET UP MECHANIC [address] [place] [address] documented as of this encounter Procedures Procedure Name Priority Date/Time Associated Diagnosis Comments ECG 12-LEAD Routine 10/13/2016 4:27 PM EDT Cardiomyopathy SCANNED EKG 10/13/2016 documented in this encounter Results * ECG 12-LEAD (10/13/2016 4:27 PM EDT) Narrative Lucas Morataya MD - 10/13/2016 4:27 PM EDT Lucas Morataya MD ? 10/13/2016 ??4:27 PM ECG 12 Lead Date/Time: 10/13/2016 10:58 AM Performed by: LUCAS MORATAYA Authorized by: LUCAS MORATAYA Rhythm comments: Sinus rhythm with first-degree AV block, cannot rule out inferior infarct, age undetermined, abnormal ECG, 75 bpm Lucas Morataya MD ECG ORDERABLES Final Result * SCANNED EKG (10/13/2016) Lucas Morataya MD ECG ORDERABLES Final Result documented in this encounter Visit Diagnoses Diagnosis Cardiomyopathy- Primary Other primary cardiomyopathies Coronary artery disease involving [place] coronary artery of [place] heart without angina pectoris Essential hypertension Unspecified essential hypertension Mixed hyperlipidemia Acute on chronic systolic congestive heart failure documented in this encounter Care Teams Manager Market Intelligence Relationship Specialty Start Date End Date Aba Espinoza MD [address] [place] [id number] PCP - General Family Medicine 07/05/16 07/19/17 documented as of this encounter
--- OUTSIDE RECORDS SUMMARY | 2024-01-18 14:50 | XMS_ITS | Encounter Summary ---
Author Organization [facility] Address [address] [place] [address] Care Team Providers Care Syrup Mixer Helper Name Role Phone Aba Espinoza MD Primary Care Provider [phone] Reason for Referral * Diagnostic Medical (Routine) - Closed Specialty Diagnoses / Procedures Referred By Kadie casillas Referred To Contact Diagnoses Abnormal stress test Procedures Cardiac Catheterization/Vascular Study Steve Valentino MD [address] [place] [address] Phone: tel: fax: Referral ID Status Reason Start Date Expiration Date Visits Re quested Visits Authorized [id number] Closed 07/02/2016 07/02/2017 1 1 Reason for Visit * Auth/Cert Specialty Diagnoses / Procedures Referred By Kadie casillas Referred To Contact Diagnoses Abnormal stress test Abnormal stress test [R94.39] Procedures Right and Left Heart Cath Referral ID Status Reason Start Date Expiration Date Visits Re quested Visits Authorized [id number] 1 1 Encounter Details Date Type Department Care Team (Late st Contact Info) Description 07/05/2016 1:00 PM EDT - 07/07/2016 4:45 PM EDT Hospital Encounter [facility] [address] [place] [address] Steve Valentino MD [address] [facility] [address] [place] [address] Abnormal stress test Discharge Disposition: Home or Self Care Social [...] Sign Reading Time Taken Comments Blood Pressure 91/63 07/07/2016 1:58 PM EDT Pulse 79 07/07/2016 1:58 PM EDT Temperature 36.6 ??C (97.9 ??F) 07/07/2016 1:58 PM ED T Respiratory Rate 18 07/07/2016 1:58 PM EDT Oxygen Saturation 95% 07/06/2016 11:45 PM EDT Inhaled Oxygen Concentration - - Weight 101 kg (223 lb 1.6 oz) 07/07/2016 11:58 A M EDT Height 190.5 cm (6' 3 ) 07/07/2016 11:58 AM EDT Body Mass Index 27.89 07/07/2016 11:58 AM EDT documented in this encounter Discharge Summaries * Karan Carter PA - 07/07/2016 2:49 PM EDT Date of Discharge: 07/07/2016 [facility] Date of Admit: 07/05/2016 Aba Espinoza MD Discharge Diagnosis:Active Problems: Abnormal stress test CAD (coronary artery disease) Systolic CHF Hospital Course: Mr. Ray is a very pleasant 65-year-old male who was admitted to [facility] on 07/05/16 secondary to an abnormal stress test. He underwent heart catheterization which revealed multivessel CAD. His EF is estimated to be approximately 10%. Dr. Lopez of cardiothoracic surgery was consulted and felt his best option would be to follow up with cardiothoracic surgery at the [facility]. These arrangements are currently being made. Mr. [...] Discharge Medications Dane Ray Home Medication Instructions BLESSING:[id number] Printed on:07/07/16 8464 Medication Information aspirin 81 MG chewable tablet [...] Specified Provider As directed To: CTS at [facility] as soon as possible Home with JERALD Lees 07/07/16 2:52 PM Cosigned by Steve Valentino MD at 07/07/2016 8:39 PM EDT documented in this encounter Discharge Instructions * Appointments* Mer Bashir - 07/07/2016 3:03 PM EDT You have an appointment with Shon Bird MD on June@14:30. Call them if you have any questions. [address] [facility] [address] * Attachments The following attachments cannot be sent through Care Everywhere. * STEPS TO QUIT SMOKING (LEBANESE) * CHEST PAIN OBSERVATION (LEBANESE) documented in this encounter Medications at Time [...] of this encounter Progress Notes * Laura Hogan RD - 07/07/2016 12:15 PM EDT Malnutrition [...] 07/12/2016 12:00 PM EDT Associated attestation - Steev Valentino MD - 07/12/2016 12:00 PM EDT I have reviewed the documentation above and agree. Steve Valentino MD 07/12/16 11:00 AM * Karan Carter PA - 07/07/2016 11:17 AM EDT [facility] LOS: 2 days Patient Care [...] Carter PA - 07/06/2016 11:11 AM EDT [facility] LOS: 1 day Patient Care [...] Weight 101 kg (223 lb 1.6 oz) [place] Body Weight (IBW) [place] Body Weight (IBW), Male (kg) 90.45 % [place] Body Weight 112.12 Usual Body Weight (UBW) Usual Body Weight 109 kg (240 lb) 235-240 lb % Usual Body Weight 92.96 Weight Loss 6.804 kg (15 lb) unintentional % Weight Loss 6.25 % Weight Loss Time Frame last 2-3 months Body Mass Index (BMI) BMI (kg/m2) 27.94 Labs/Tests/Procedures/Meds 07/07/16 1201 Labs/Tests/Procedures/Meds Labs/Tests Review Reviewed Nutrition Prescription Ordered 07/07/16 1201 Nutrition Prescription PO Current PO Diet Regular Common Modifiers Cardiac Evaluation of Received Nutrient/Fluid Intake 07/07/16 1201 PO Evaluation Number of Meals 5 % PO Intake 100 Malnutrition Severity Assessment 07/07/16 1207 Malnutrition Severity [...] and wt loss Problem/Interventions: Problem 1 07/07/16 1201 Nutrition Diagnoses Problem 1 Problem 1 Knowledge Deficit Etiology (related to) Medical Diagnosis Cardiac CAD;CHF Signs/Symptoms (evidenced by) Reported Information Deficit Problem 2 07/07/16 1202 Nutrition Diagnoses Problem 2 Problem 2 Nutrition Appropriate for Condition at this Time Signs/Symptoms (evidenced by) PO Intake Percent (%) intake recorded 100 % Over number of meals 5 Intervention Goal 07/07/16 1202 Intervention Goal General Nutrition support treatment;Provide information regarding MNT for treatment/condition PO Maintain intake Nutrition Intervention 07/07/[address]/Tech Action Follow Tx progress;Care plan reviewd Nutrition Prescription 07/07/16 1203 Nutrition Prescription PO PO Prescription Begin/change diet appropriate for current dx Begin/Change Diet to Regular Common Modifiers Cardiac;Consistent Carbohydrate New PO Prescription Ordered? Yes Education/Evaluation 07/07/16 1203 Education Education Provided education regarding;Education topics;Advised regarding [...] Heart Cath; Surgeon: Steve Valentino MD; Location: [facility] CATH INVASIVE LOCATION; Service: Family History Problem [...] Value Units Date/Time XR Chest 1 View [[id number]] Collected: 07/06/16 1603 Updated: 07/06/16 1619 Narrative: [...] rather have his coronary surgery at the [facility] so that he would have heart transplant [...] Present (Cardiac Catheterization) none * Maria Fernanda Adams RN - 07/05/2016 1:28 PM EDT Problem: [...] [facility] SLEEP [facility] [address] [place] [address] Rosalino Tom, LIQUOR GRINDING MILL OPERATOR [address] [place] [address] documented as of this encounter Procedures Procedure [...] 10:40 PM EDT CARDIAC CATHETERIZATION Routine 07/06/19 4:51 PM EDT Abnormal stress test CBC [...] - 130 mg/dL 07/07/2016 11:52 AM EDT [facility] Blood 07/07/2016 11:4 3 AM EDT 07/07/2016 11:52 AM EDT [facility] - 07/07/2016 11:52 AM EDT Meter: [id number] Senior Visual Designer: [id number] Buddy Montenegro Steve Valentino MD POINT OF CARE TEST ORDERA BLES Final Result Performing Organization Address City/[facility]/ZIP Co de Phone Number [facility]
[address] [place] [address], * POC Glucose Fingerstick (07/07/2016 7:40 AM EDT) Glucose 124 70 - 130 mg/dL 07/07/2016 7:46 AM EDT [facility] Blood 07/07/2016 7:40 AM EDT 07/07/2016 7:46 AM EDT [facility] - 07/07/2016 7:46 AM EDT Meter: [id number] Senior Visual Designer: [id number] Buddy Montenegro Steve Valentino MD POINT OF CARE TEST ORDERA BLES Final Result Performing Organization Address City/[facility]/ZIP Co de Phone Number [facility]
[address] [place] [address], * (ABNORMAL) POC Glucose Fingerstick (07/06/2016 8:27 PM EDT) Glucose 186(H) 70 - 130 mg/dL 07/06/2016 8:28 PM EDT [facility] Blood 07/06/2016 8:27 PM EDT 07/06/2016 8:28 PM EDT [facility] - 07/06/2016 8:28 PM EDT Meter: [id number] Senior Visual Designer: [id number] Jeff Vega Steve Valentino MD POINT OF CARE TEST ORDERA BLES Final Result Performing Organization Address [facility]/ZIP Co de Phone Number [facility]
[address] [place] [address], * POC Glucose Fingerstick (07/06/2016 5:00 PM EDT) Glucose 108 70 - 130 mg/dL 07/06/2016 5:16 PM EDT [facility] Blood 07/06/2016 5:00 PM EDT 07/06/2016 5:16 PM EDT [facility] - 07/06/2016 5:16 PM EDT Meter: [id number] Senior Visual Designer: [id number] Buddy Montenegro Steve Valentino MD POINT OF CARE TEST ORDERA BLES Final Result Performing Organization Address [facility]/State/ZIP Co de Phone Number [facility]
[address] [place] [address], * P2Y12 Platelet Inhibition (07/06/2016 2:53 PM EDT) P2Y12 Reactivity Unit 236 PRU DISK DIFFUSION 07/06/2016 3:45 PM EDT [facility] Blood 07/06/2016 2:53 PM EDT 07/06/2016 3:31 PM EDT [facility] - 07/06/2016 3:45 PM EDT [...] of a study performed by the test lodging facilities attendant are summarized below: % Inhibition Threshold ?PRU Threshold ?JOHNATHAN AUC ? 10% ?259 ?0.91 ? 20% ?237 ?0.93 ? 30% ?214 ?0.95 ? 40% ?187 ?0.97 ? 50% ?159 ?0.98 ? 60% ?131 ?0.99 ? us Tariq MARQUES LAB BLOOD ORDERABLES Final R esult [facility]
[address] [place] [address], * (ABNORMAL) Comprehensive Metabolic Panel (07/06/2016 2:53 PM EDT) Glucose 106(H) 70 - 100 mg/dL 07/06/2016 4:14 PM EDT [facility] BUN 13 9 - 23 mg/dL 07/06/2016 4:14 PM EDT [facility] Creatinine 1.00 0.60 - 1.30 mg/dL 07/06/2016 4:14 PM EDT [facility] Sodium 138 132 - 146 mmol/L 07/06/2016 4:14 PM EDT [facility] Potassium 4.3 3.5 - 5.5 mmol/L 07/06/2016 4:14 PM EDT [facility] Chloride 108 99 - 109 mmol/L 07/06/2016 4:14 PM EDT [facility] CO2 29.0 20.0 - 31.0 mmol/L 07/06/2016 4:14 PM EDT [facility] Calcium 9.2 8.7 - 10.4 mg/dL 07/06/2016 4:14 PM EDT [facility] Total Protein 7.3 5.7 - 8.2 g/dL 07/06/2016 4:14 PM EDT [facility] Albumin 3.70 3.20 - 4.80 g/dL 07/06/2016 4:14 PM EDT [facility] ALT (SGPT) 25 7 - 40 U/L 07/06/2016 4:14 PM EDT [facility] AST (SGOT) 27 0 - 33 U/L 07/06/2016 4:14 PM EDT [facility] Alkaline Phosphatase 63 25 - 100 U/L 07/06/2016 4:14 PM EDT [facility] Total Bilirubin 0.5 0.3 - 1.2 mg/dL 07/06/2016 4:14 PM EDT [facility] eGFR Non Amer 75 >60 mL/min/1.7 3 07/06/2016 4:14 PM EDT [facility] Globulin 3.6 gm/dL 07/06/2016 4:14 PM EDT [facility] A/G Ratio 1.0(L) 1.5 - 2.5 g/dL 07/06/2016 4:14 PM EDT [facility] BUN/Creatinine Ratio 13.0 7.0 - 25.0 07/06/2016 4:14 PM EDT [facility] Anion Gap 1.0(L) 3.0 - 11.0 mmol/L 07/06/2016 4:14 PM EDT [facility] Blood 07/06/2016 2:53 PM EDT 07/06/2016 3:26 PM EDT [facility] - 07/06/2016 4:14 PM EDT National Kidney Foundation Guidelines Stage ? Description ?GFR 1 ? Normal or High ? 90+ 2 ? Mild decrease ?60-89 3 ? Moderate decrease ??30-59 4 ? Severe decrease ?15-29 5 ? Kidney failure ? <15 us Tariq MARQUES LAB BLOOD ORDERABLES Final R esult [facility]
[address] [place] [address], * XR Chest 1 View (07/06/2016 2:48 PM EDT) Anatomical Region Laterality Modality Body N/A Radiographic Emma ging 07/06/2016 4:03 PM EDT Impressions 07/06/2016 4:16 PM EDT No active disease. D: ??07/06/2016 E: ??07/06/2016 This report was finalized on 07/06/2016 4:[address] Rodolfo Ruano MD. Narrative 07/06/2016 4:16 PM EDT EXAMINATION: XR CHEST 1 - 07/06/2016 INDICATION: R94.39-Abnormal result of other cardiovascular function study COMPARISON: NONE FINDINGS: There is a normal cardiac silhouette. There is no pulmonary inflammatory process. There is no mass or effusion. ? Procedure Note Sharan Ruano MD - 07/06/2016 EXAMINATION: XR CHEST 1 - 07/06/2016 INDICATION: R94.39-Abnormal result of other cardiovascular function study COMPARISON: NONE FINDINGS: There is a normal cardiac silhouette. There is no pulmonary inflammatory process. There is no mass or effusion. IMPRESSION: No active disease. E: 07/06/2016 This report was finalized on 07/06/2016 4:[address] Rodolfo Ruano MD. us Tariq MARQUES IMG DIAGNOSTIC IMAGING ORDER AURELIO Final Result * (ABNORMAL) POC Glucose Fingerstick (07/06/2016 11:42 AM EDT) Glucose 190(H) 70 - 130 mg/dL 07/06/2016 11:52 AM EDT [facility] Blood 07/06/2016 11:4 2 AM EDT 07/06/2016 11:52 AM EDT Narrative [facility] - 07/06/2016 11:52 AM EDT Meter: [id number] Senior Visual Designer: [id number] Buddy Montenegro Steve Valentino MD POINT OF CARE TEST ORDERA BLES Final Result [facility]
[address] [place] [address], * (ABNORMAL) POC Glucose Fingerstick (07/06/2016 7:33 AM EDT) Glucose 131(H) 70 - 130 mg/dL 07/06/2016 7:39 AM EDT [facility] Blood 07/06/2016 7:33 AM EDT 07/06/2016 7:39 AM EDT [facility] - 07/06/2016 7:39 AM EDT Meter: [id number] Senior Visual Designer: [id number] Buddy Montenegro Steve Valentino MD POINT OF CARE TEST ORDERA BLES Final Result Performing Organization Address [facility]/ZIP Co de Phone Number [facility]
[address] [place] [address], * POC Glucose Fingerstick (07/05/2016 10:40 PM EDT) Glucose 94 70 - 130 mg/dL 07/05/2016 10:41 PM EDT [facility] Blood 07/05/2016 10:4 0 PM EDT 07/05/2016 10:41 PM EDT [facility] - 07/05/2016 10:41 PM EDT Meter: [id number] Senior Visual Designer: [id number] Mookie Mendiola Steve Valentino MD POINT OF CARE TEST ORDERA BLES Final Result Performing Organization Address [facility]/ZIP Co de Phone Number [facility]
[address] [place] [address], * RIGHT AND LEFT HEART CATH (07/05/2016 [...] Basic Metabolic Panel (07/05/2016 1:19 PM EDT) [facility] Glucose 159(H) 70 - 100 mg/dL 07/05/2016 1:52 PM EDT [facility] BUN 15 9 - 23 mg/dL 07/05/2016 1:52 PM EDT [facility] Creatinine 0.90 0.60 - 1.30 mg/dL 07/05/2016 1:52 PM EDT [facility] Sodium 139 132 - 146 mmol/L 07/05/2016 1:52 PM EDT [facility] Potassium 4.5 3.5 - 5.5 mmol/L 07/05/2016 1:52 PM EDT [facility] Chloride 107 99 - 109 mmol/L 07/05/2016 1:52 PM EDT [facility] CO2 24.0 20.0 - 31.0 mmol/L 07/05/2016 1:52 PM EDT [facility] Calcium 9.3 8.7 - 10.4 mg/dL 07/05/2016 1:52 PM EDT [facility] eGFR Non Amer 85 >60 mL/min/1.7 3 07/05/2016 1:52 PM EDT [facility] BUN/Creatinine Ratio 16.7 7.0 - 25.0 07/05/2016 1:52 PM EDT [facility] Anion Gap 8.0 3.0 - 11.0 mmol/L 07/05/2016 1:52 PM EDT [facility] Blood Line / Unknown 07/05/2016 1: 19 PM EDT 07/05/2016 1:26 PM EDT [facility] - 07/05/2016 1:52 PM EDT National Kidney Foundation Guidelines Stage ? Description ?GFR 1 ? Normal or High ? 90+ 2 ? Mild decrease ?60-89 3 ? Moderate decrease ??30-59 4 ? Severe decrease ?15-29 5 ? Kidney failure ? <15 us Steve Valentino MD LAB BLOOD ORDERABLES Jessenia l Result [facility]
[address] [place] [address], * (ABNORMAL) CBC (No Diff) (07/05/2016 1:19 PM EDT) WBC 7.17 3.50 - 10.80 10*3/mm3 07/05/2016 1:32 PM EDT [facility] RBC 4.46 4.20 - 5.76 10*6/mm3 07/05/2016 1:32 PM EDT [facility] Hemoglobin 14.1 13.1 - 17.5 g/dL 07/05/2016 1:32 PM EDT [facility] Hematocrit 44.7 38.9 - 50.9 % 07/05/2016 1:32 PM EDT [facility] MCV 100.2(H) 80.0 - 99.0 fL 07/05/2016 1:32 PM EDT [facility] MCH 31.6(H) 27.0 - 31.0 pg 07/05/2016 1:32 PM EDT [facility] MCHC 31.5(L) 32.0 - 36.0 g/dL 07/05/2016 1:32 PM EDT [facility] RDW 14.2 11.3 - 14.5 % 07/05/2016 1:32 PM EDT [facility] RDW-SD 51.9 37.0 - 54.0 fl 07/05/2016 1:32 PM EDT [facility] MPV 10.7 6.0 - 12.0 fL 07/05/2016 1:32 PM EDT [facility] Platelets 269 150 - 450 10*3/mm3 07/05/2016 1:32 PM EDT [facility] Blood Line / Unknown 07/05/2016 1: 19 PM EDT 07/05/2016 1:26 PM EDT Steve Valentino MD LAB BLOOD ORDERABLES Jessenia bartholomew Result [facility]
[address] [place] [address], * (ABNORMAL) POC Glucose Fingerstick (07/05/2016 1:14 PM EDT) Glucose 152(H) 70 - 130 mg/dL 07/05/2016 1:16 PM EDT [facility] Blood 07/05/2016 1:14 PM EDT 07/05/2016 1:16 PM EDT Narrative [facility] - 07/05/2016 1:16 PM EDT Meter: [id number] Senior Visual Designer: [id number] Meghan Nazario Steve Valentino MD POINT OF CARE TEST ORDERA BLES Final Result [facility]
[address] [place] [address], * SCANNED - CARDIOLOGY (07/05/2016) Anatomical Region Laterality Modality Other [facility] Onbase CV CARDIAC SERVICES ORDERABLE S Final Result * SCANNED - TELEMETRY (07/05/2016) Anatomical Region Laterality Modality Other [facility] Onbase ECG ORDERABLES Final Result * SCANNED - TELEMETRY (07/05/2016) Anatomical Region Laterality Modality Other [facility] Onbase ECG ORDERABLES Final Result documented in this encounter Visit Diagnoses Diagnosis Abnormal stress test Other nonspecific abnormal cardiovascular system function study Abnormal stress test Other nonspecific abnormal cardiovascular system function study CAD (coronary artery disease) Coronary atherosclerosis of unspecified type of vessel, kotlik or graft Systolic CHF Abnormal stress test Other nonspecific abnormal cardiovascular [...] Given 07/06/2016 10:14 AM EDT 81 mg aspirin EC tablet 325 mg 325 mg, Oral, Daily, First dose on Tue07/05/16 at 1400, Herbal/drug interaction: Avoid use with ginkgo biloba. Do not crush or chew. Given 07/05/2016 2:24 PM EDT 325 mg dextrose (D50W) solution 25 g 25 [...] PM EDT 2 Units Le ft Arm Morphine sulfate (PF) injection 1 mg 1 [...] respiratory rate is greater than 12 breaths/minute. Pharmacy Meds to Bed Consult Daily (Tuesday-Tuesday), [...] Patient/family refused) 1015 (Given - Provider: Jyoti Fox, TONNY)1719 (Given - Provider: Maribell Moreno LPN) 0906 [...] Crabtree RN)2243 (Not Given - Provider: Marlena Dmaico RN - Reason: Other - Comment: fsbs [...] 2100 2243 (Not Given - Provider: Marlena Damcio RN - Reason: Other - Comment: bp [...] Swallow, Starting on Tue07/05/16 at 1337 1600 ([facility] Hold - Provider: Automatic Transfer Provider - Reason: Unreviewed Transfer Orders)172 ([facility] Unhold - Provider: Tiana Crabtree RN) dextrose (GLUTOSE) oral gel 15 g 15 g, Oral, Every 15 Minutes PRN, Low Blood Sugar, Blood Sugar Less Than 70, Patient Alert, Is Not NPO & Can Safely Swallow, Starting on Tue07/05/16 at 1337 1600 ([facility] Hold - Provider: Automatic Transfer Provider - Reason: Unreviewed Transfer Orders)172 ([facility] Unhold - Provider: Tiana Crabtree RN) glucagon (GLUCAGEN) injection 1 mg 1 mg, Subcutaneous, Every 15 Minutes PRN, Blood Glucose Less Than 70 - Patient Without IV Access - Unresponsive, NPO or Unable To Safely Swallow, Starting on Tue07/05/16 at 1337 1600 ([facility] Hold - Provider: Automatic Transfer Provider - Reason: Unreviewed Transfer Orders)172 ([facility] Unhold - Provider: Tiana Crabtree RN) HYDROcodone-acetaminophen (NORCO) 5-325 MG per tablet 1 tablet 1 tablet, Oral, Every 4 Hours PRN, Moderate Pain, Starting on Tue07/05/16 at 1725, For 10 days, Do not exceed 4 grams of acetaminophen in a 24 hr period. 0906 (Given - Provid er: Jyoti Fox, RN) iopamidol (ISOVUE-370) 76 % injection (CANCELED) [...] breaths/minute. documented in this encounter Care Teams Syrup Mixer Helper Relationship Specialty Start Date End Date Aba Espinoza MD [address] [facility] [address] [facility] [address] [place] [address] PCP - General Family Medicine 07/05/16 07/19/17 documented as of this encounter
--- OUTSIDE RECORDS SUMMARY | 2024-01-18 14:50 | XMS_ITS | Encounter Summary ---
Author Organization [facility] Address [address] [place] [address] Care Team Providers Care Fashion Illustrator Name Role Phone Heriberto Quan MD Primary Care Provider [phone] Reason for Visit * Reason Onset Date Comments HCN Clinical Concern/Question 11/15/2023 Encounter Details Date Type Department Care Team (Late st Contact Info) Description 11/15/2023 Telephone Physical Medicine & Rehabilitation Clinic at [facility] [address] [place] [address] Michael Reynolds DO [address] [place] [address] HCN Clinical Concern/Question Social History Tobacco Use Types Packs/Day Years [...] encounter Miscellaneous Notes * Telephone Encounter - Emely Fong - 11/15/2023 4:27 PM EDT I spoke with pt, he said he will just wait until it start bothering him again and he will let us know but as of right now he will just keep his next appt. * Telephone Encounter - Hakeem Fnogjoanna Kennedy - 11/15/2023 12:36 PM EDT Spoke with pt he stated that PT is Starting to affect both knees every time he does some exercise.Pain score is a 4 even when he sleeps.PT has him standing up and holding 5 pounds and he thinks it's to much. Pt did not go last and this week. Please advise * Telephone Encounter - Ruth Doll - 11/15/2023 8:35 AM EDT Clinical Concern/Question Reason for Call: patient is requesting a call back regarding his pain after PT. Best contact number: [phone] (home) Optimal time of day to reach caller: ANYTIME Additional comments/information from caller: None Note: Please do not reply to this message. Follow-up communication and further actions as a result of this message need to be communicated with the patient directly, if the patient is not active onMyChart. If the patient is active on MyChart, they will receive notification of the communication/outcome via [employer]. documented in this encounter Plan of Treatment Not on file documented as of this encounter Visit Diagnoses Not on filedocumented in this encounter Additional Health Concerns Assessment Noted Time A fall risk assessment has been complete d for the patient 09/29/2023 11:41 AM EDT A Body Mass Index follow-up plan has been documented for the patient 09/29/2023 12:31 PM EDT documented as of this encounter Care Teams Fashion Illustrator Relationship Specialty Start Date End Date Heriberto Quan MD [address] [place] [address] PCP - General 08/24/23 documented as of this encounter
--- OUTSIDE RECORDS SUMMARY | 2024-01-18 14:50 | XMS_ITS | Encounter Summary ---
Author Organization Healthcare Address [facility] [place] [address] Care Team Providers Care Diamond Powder Mixer Name Role Phone Heriberto Quan MD Primary Care Provider [phone] Encounter Details Date Type Department Care Team (Latest Contact Info) Description 12/26/2023 Travel Social History Tobacco Use Types Packs/Day Years [...] as of this encounter Plan of Treatment Not on [...] documented as of this encounter Care Teams Diamond Powder Mixer Relationship Specialty Start Date End Date Heriberto Quan MD [address] [place] [address] PCP - General 08/24/23 documented as of this encounter
--- OUTSIDE RECORDS SUMMARY | 2024-01-18 14:50 | XMS_ITS | Encounter Summary ---
Author Organization [facility] Address [address] [place] [address] Care Team Providers Care Speech Therapy Assistant Name Role Phone Aba Espinoza MD Primary Care Provider + [phone] Reason for Visit * Reason Onset Date Comments Med Refill 04/22/2017 Encounter Details Date Type Department Care Team (Late st Contact Info) Description 04/22/2017 Refill [facility] [address] [facility] [address] [place] [address] Glendy Gaviria, RN Med Refill [...] Info) Description 03/02/2024 2:45 PM EST Telemedicine [facility] [address] [facility] [address] [place] [address] Rosalino Tom, PROGRAM EVALUATOR [address] [place] [address] documented as of this encounter Visit Diagnoses Not on filedocumented in this encounter Care Teams Speech Therapy Assistant Relationship Specialty Start Date End Date Aba Espinoza MD [address] [facility] [address] [place] [address] PCP - General Family Medicine 07/05/16 07/19/17 documented as of this encounter
--- OUTSIDE RECORDS SUMMARY | 2024-01-18 14:50 | XMS_ITS | Encounter Summary ---
Author Organization Healthcare Address [facility] [place] [address] Care Team Providers Care Lending Manager Name Role Phone Heriberto Quan MD Primary Care Provider [phone] Encounter Details Date Type Department Care Team (Latest Contact Info) Description 09/29/2023 Travel Social History Tobacco Use Types Packs/Day [...] documented as of this encounter Care Teams Lending Manager Relationship Specialty Start Date End Date Heriberto Quan MD [address] [place] [address] PCP - General 08/24/23 documented as of this encounter
--- OUTSIDE RECORDS SUMMARY | 2024-01-18 14:50 | XMS_ITS | Encounter Summary ---
Author Organization Healthcare Address [facility] [place] [address] Care Team Providers Care Compatibility Test Engineer Name Role Phone Heriberto Quan MD Primary Care Provider [phone] Encounter Details Date Type Department Care Team (Latest Contact Info) Description 01/02/2024 Travel Social History Tobacco Use Types Packs/Day [...] documented as of this encounter Care Teams Compatibility Test Engineer Relationship Specialty Start Date End Date Heriberto Quan MD [address] [place] [address] PCP - General 08/24/23 documented as of this encounter
--- OUTSIDE RECORDS SUMMARY | 2024-01-18 14:50 | XMS_ITS | Encounter Summary ---
Author Organization [facility] Address [address] [place] [address] Care Team Providers Care Oriental Medicine Practitioner Name Role Phone Alexandr Quan MD Primary Care Provider Reason for Visit * Reason Comments Cardiomyopathy Chest Pain Shortness of Breath Dizziness Encounter Details Date Type Department Care Team (Late st Contact Info) Description 07/20/2017 1:45 PM EDT Office Visit [facility] [address] [facility] [address] [place] [address] Ky Morataya MD [address] [facility] [address] [place] [address] Acute on chronic systolic congestive heart failure (Primary Dx); Cardiomyopathy, unspecified type; Essential hypertension; Mixed hyperlipidemia Social History Tobacco [...] Sign Reading Time Taken Comments Blood Pressure 86/56 07/20/2017 1:46 PM EDT Pulse 78 07/20/2017 1:46 PM EDT Temperature - - Respiratory Rate - - Oxygen Saturation - - Inhaled Oxygen Concentration - - Weight 125 kg (275 lb) 07/20/2017 1:46 PM EDT Height 190.5 cm (6' 3 ) 07/20/2017 1:46 PM EDT Body Mass Index 34.37 07/20/2017 1:46 PM EDT documented in this encounter Progress Notes * Ky Morataya MD - 07/20/2017 1:45 PM EDT Subjective: Encounter Date:07/20/2017 Patient ID: Dane Ray is a 66 y.o. 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 ?? PHYSICIAN: Aba Espinoza MD REMOTE LEACHER: Steve Valentino MD HEART FAILURE/TRANSPLANT LEACHER:??Liss Acevedo MD ([facility]) CARDIOTHORACIC SURGEON: Surya Lopez MD; Dr. Bird at [facility] Chief Complaint: Chief Complaint Patient presents with ??? Cardiomyopathy ??? Chest Pain ??? Shortness of Breath ??? Dizziness Problem List: 1. Coronary artery disease/ischemic cardiomyopathy: A. Remote exercise stress test x 6: Negative per patient-data deficit, in [place] B. Echocardiogram 07/13/16; moderately enlarged left atrium, [...] biatrial enlargement F. Medtronic ICD model number [id number] implanted at [facility] 12/06/16 G. Echocardiogram, 06/30/2017, [facility]: LV severely dilated, grade 2 LV diastolic dysfunction, EF 0.15, no LV thrombus, LA mildly dilated, aortic valve exhibits sclerosis H. CCS class I chest discomfort/NYHA class II dyspnea with exertion 2. Occasional PVCs 3. Type 2 diabetes mellitus, hemoglobin A1c 7% 4. Hypertension 5. Hyperlipidemia 6. Former??tobacco use; on Chantix, quit 08/13/16 7. Mild-moderate obesity; BMI 34.4 8. Anxiety 9. Surgical history: A. LHC B. BiV ICD November 2016 ?? No Known Allergies Current Outpatient Prescriptions: ??? acetaminophen (TYLENOL) 500 MG tablet, Take [...] Pain., Disp: 4.9 g, Rfl: 12 ??? sacubitril-valsartan (ENTRESTO) 24-26 MG tablet, Take 1 tablet by mouth Every 12 (Twelve) Hours., Disp: 60 tablet, Rfl: 11 ??? SITagliptin (JANUVIA) 50 MG tablet, Take [...] needed daily, Disp: 90 tablet, Rfl: 3 HISTORY OF PRESENT ILLNESS: Patient returns for scheduled followup after a 6- month hiatus. He denies increased SOB, palpitations, presyncope, or syncope. He has a Medtronic ICD which was interrogatedon 07/18/2017 before his colonoscopy. He had a polyp removal with no complications. He denies melena or change in bowel habits. Occasionally, he has increased edema but has torsemide and can take an extra tablet if needed. Several months ago, he had an episode of chest pain and took one nitroglycerinsublingual with resolution of symptoms. He had an echocardiogram in June 2017 when he went to [facility] which demonstrated an EF of 0.15. His Coreg was increased to 6.25 mg twice a day. He denies any defibrillator shocks. He was rather sedentary over the winter and has gained 8 pounds since his last visit. He has used sublingual nitroglycerin for prompt relief of chest pain, approximately monthly on average. Patient otherwise denies prolonged chest pain, recurrent shortness of breath, PND, edema, palpitations, syncope or presyncope at this time on limited activity. He is accompanied to the office today by his girlfriend, with whom he lives. Review of Systems Constitution: Positive for weight gain. Cardiovascular: Positive for chest pain and leg swelling. Respiratory: Positive for snoring. Endocrine: Positive for polydipsia. Hematologic/Lymphatic: Bruises/bleeds easily. Skin: Positive for dry skin and poor wound healing. Gastrointestinal: Positive for flatus and heartburn. Neurological: Positive for excessive daytime sleepiness, dizziness and loss of balance. Obtained and otherwise negative except as outlined in problem list and HPI. Procedures Objective: Vitals: 07/20/17 1340 07/20/17 1346 BP: (!) 86/52 (!) 86/56 BP Location: Left arm Left arm Patient Position: Sitting Standing Pulse: 73 78 Weight: 125 kg (275 lb) 125 kg (275 lb) Height: 190.5 cm (75 ) 190.5 cm (75 ) Body mass index is 34.37 kg/m??. Last weight: 267 lbs. Physical Exam Constitutional: He is oriented [...] the apex Pulses: Dorsalis pedis pulses are 1+ on [...] MCV 100.2 (H) 07/05/2016 PLT 269 07/05/2016 BMP 06/30/17: BUN 34, creatinine 1.45, sodium 136, potassium 5.2, chloride 97, carbon dioxide 27, calcium 9.4, glucose 194, GFR 47, proBNP 312 Assessment: Overall continued acceptable course with no interim cardiopulmonary complaints with acceptable functional status. He had an echocardiogram when he had a follow-up appointment at [facility] June 2017 which demonstrated EF of 0.15. He had a colonoscopy this week with polyp removal. Overall, he is rather asymptomatic and able to tolerate activity despite his low EF. We will defer a trial of Ranexa at this time. He states he will attempt to allow us to review his recent laboratory studies. Diagnosis Plan 1. Acute on chronic systolic congestive heart failure Echocardiogram with EF of 0.15 with recent increase Coreg to 6.25 mg twice a day 2. Cardiomyopathy, unspecified type No recurrent prolonged angina pectoris or CHF. 3. Essential hypertension Controlled 4. Mixed hyperlipidemia No new labs Plan: 1. Patient to continue current medications and close follow up with the above providers. 2. Tentative cardiology follow up in January 2018, or patient may return sooner PRN. Scribed for Ky Morataya MD by Carmelina Huang APRN. 07/20/2017 2:11 PM IKy MD, [facility], personally performed the services described in this documentation as scribed by the above named individual in my presence, and it is both accurate and complete. At 2:27 PM on 07/20/2017 documented in this encounter Plan of Treatment Upcoming Encounters Date Type Department Care Team (Late st Contact Info) Description 03/02/2024 2:45 PM EST Telemedicine [facility] [address] [facility] [address] [place] [id number] Rosalino Tom, FINANCIAL LEGAL ASSISTANT [address] [place] [address] documented as of this encounter Visit Diagnoses Diagnosis Acute on chronic systolic congestive heart failure- Primary Cardiomyopathy, unspecified type Essential hypertension Unspecified essential hypertension Mixed hyperlipidemia documented in this encounter Care Teams Oriental Medicine Practitioner Relationship Specialty Start Date End Date Alexandr Quan MD PCP - General Family Medicine 07/20/17 02/16/18 documented as of this encounter
--- OUTSIDE RECORDS SUMMARY | 2024-01-18 14:50 | XMS_ITS | Encounter Summary ---
Author Organization [facility] Address [address] [place] [address] Care Team Providers Care Marking Machine Operator Name Role Phone Heriberto Quan MD Primary Care Provider [phone] Reason for Visit * Reason Onset Date Comments HCN - Patient Message 10/05/2023 Encounter Details Date Type Department Care Team (Late st Contact Info) Description 10/05/2023 Telephone Physical Medicine [facility] at [facility] [address] [place] [place] [address] Michael Reynolds DO [address] [facility] [address] [place] [address] HCN - Patient Message Social History Tobacco Use Types Packs/Day Years [...] encounter Miscellaneous Notes * Telephone Encounter - Sabino Faust - 10/05/2023 11:46 AM EDT Clinical Concern/Question Reason for Call: Hannah W/ [facility] is asking to get a PT order faxed to her at ; says patient has an appointment with them tomorrow. Best contact number: Other: Optimal time of day to reach caller: ANYTIME Additional comments/information from caller: None Note: Please do not reply to this message. Follow-up communication and further actions as a result of this message need to be communicated with the patient directly, if the patient is not active onMyChart. If the patient is active on MyChart, they will receive notification of the communication/outcome via [facility]. documented in this encounter Plan of Treatment [...] documented as of this encounter Care Teams Marking Machine Operator Relationship Specialty Start Date End Date Heriberto Quan MD [address] [place] [address] PCP - General 08/24/23 documented as of this encounter
--- OUTSIDE RECORDS SUMMARY | 2024-01-18 14:51 | XMS_ITS | Encounter Summary ---
Author Organization Healthcare Address [facility] [place] [address] Care Team Providers Care Meat Pumper Name Role Phone Heriberto Quan MD Primary Care Provider [phone] Encounter Details Date Type Department Care Team (Latest Contact Info) Description 09/15/2023 Travel Social History Tobacco Use Types Packs/Day Years Used Date Smoking Tobacco: Every Day Smokeless Tobacco: Never Alcohol Use Standard Drinks/Week Comments Yes 0 (1 standard drink = 0.6 oz pure alcohol) Alcoholic Drinks/day: History of alcohol abuse PHQ-2 Answer Date Recorded Patient Health Questionnaire-2 Score 0 09/15/2023 Sex and Gender Information Value Date Recorded [...] has been complete d for the patient 09/15/2023 10:03 AM EDT A Body Mass Index follow-up plan has been documented for the patient 09/19/2023 1:04 PM EDT documented as of this encounter Care Teams Meat Pumper Relationship Specialty Start Date End Date Heriberto Quan MD [address] [place] [address] PCP - General 08/24/23 documented as of this encounter
--- OUTSIDE RECORDS SUMMARY | 2024-01-18 14:51 | XMS_ITS | Encounter Summary ---
Author Organization Healthcare Address [facility] [place] [address] Care Team Providers Care Tail Puller Name Role Phone Unavailable Primary Care Provider Unavailabl e Encounter Details Date Type Department Care Team ([facility] st Contact Info) Description 07/14/2016 [facility] Vitals Encounter [facility] OUTPATIENT CONVERSIONS [address] [place] [address] Provider, MD Rocael [address] [place] [address] Social History Tobacco Use Types Packs/Day Years Used Date Smoking Tobacco: Never Assessed Sex and Gender Information Value Date Recorded [...] - Inhaled Oxygen Concentration - - Weight 103 kg (227 lb 1.2 oz) 07/14/2016 2:34 PM EDT Height 190.5 cm (6' 3 ) 07/14/2016 2:34 PM EDT Body Mass Index 28.38 07/14/2016 2:34 PM EDT documented in this encounter Plan of Treatment Not on file documented as of this encounter Visit Diagnoses Not on filedocumented in this encounter
--- OUTSIDE RECORDS SUMMARY | 2024-01-18 14:51 | XMS_ITS | Encounter Summary ---
Author Organization Healthcare Address [facility] [place] [address] Care Team Providers Care Development Executive Name Role Phone Heriberto Quan MD Primary Care Provider [phone] Encounter Details Date Type Department Care Team (Latest Contact Info) Description 09/22/2023 Travel Social History Tobacco Use Types Packs/Day [...] documented as of this encounter Care Teams Development Executive Relationship Specialty Start Date End Date Heriberto Quan MD [address] [place] [address] PCP - General 08/24/23 documented as of this encounter
--- OUTSIDE RECORDS SUMMARY | 2024-01-18 14:51 | XMS_ITS | Encounter Summary ---
Author Organization [place] [address] Care Team Providers Care Dog Sitter Name Role Phone Fili Sanchez MD Unavailable [phone] Aba Espinoza MD Primary Care Provider [phone] Reason for Visit * Reason Onset Date Comments Medication Refill 10/31/2023 Encounter Details Date Type Department Care Team (Late st Contact Info) Description 10/31/2023 Refill [facility] [address] [facility] [address] [place] [address] Lakisha Gupta APRN [address] [facility] [address] [place] [phone] Medication Refill Social History Tobacco Use Types Packs/Day Years Used Date Smoking Tobacco: Former Cigarettes 2.5 8.1 1 03/02/2012 - 06/25/2016 Passive Smoke Exposure: Past Smokeless Tobacco: Never Comments:3 months ago Alcohol Use Standard Drinks/Week Comments Yes 10 (1 standard drink = 0.6 oz pu re alcohol) A week Sexually Active Control Partners Comments Not Currently Female Sex and Gender Information Value Date Recorded Sex Assigned at Not on file Legal Sex Male 12:38 PM EST Gender Identity Not on file Sexual Orientation Not on file documented as of this encounter Ordered Prescriptions Prescription Sig Dispense Quantity Refills Last Filled Start Date End Date empagliflozin (JARDIANCE) 25 mg Oral TabletIndications:T ype 2 diabetes mellitus with hyperglycemia, with long-term current use of insulin (HCC) Take 1 Tablet by mouth daily. 90 Tablet 3 10/31/2023 documented in this encounter Plan of Treatment Upcoming Encounters Date Type Department Care Team (Late st Contact Info) Description 04/26/2024 9:00 AM EDT Office Visit [facility] [place] [address] [facility] [place] [address] Julio Silva MD [address] [facility] [place] [address] documented as of this encounter Visit Diagnoses Diagnosis Type 2 diabetes mellitus with hyperglycemia, with long-term current use of insulin (HCC)- Primary documented in this encounter Discontinued Medications Medication Sig Discontinue Reason Start Date End Da te empagliflozin (JARDIANCE) 25 mg Oral Tablet Take 1 Tablet by mouth daily. Reorder 10/28/2022 10/31/2023 documented as of this encounter Additional Health Concerns Assessment Noted Time A fall risk assessment has been complete d for the patient 10/19/2023 9:50 AM EDT documented as of this encounter Care Teams Dog Sitter Relationship Specialty Start Date End Date Aba Espinoza MD [address] [place] [address] PCP - General Family Medicine 07/27/16 Fili Sanchez MD [address] [address] Internal Medicine-Endocrinology, Diabetes & Metabolism 04/11/14 documented as of this encounter
--- OUTSIDE RECORDS SUMMARY | 2024-01-18 14:51 | XMS_ITS | Encounter Summary ---
Author Organization [facility] Address [facility] [place] [address] Care Team Providers Care Head Sawyer Automatic Name Role Phone Heriberto Quan MD Primary Care Provider [phone] Reason for Referral * Other Medical (Routine) - Pending Review Specialty Diagnoses / Procedures Referred By Kadie casillas Referred To Contact Physical Medicine and Rehabilitation Diagnoses Chronic pain of both knees Bilateral primary osteoarthritis of knee Procedures Injection - Large Joint Michael Reynolds DO [address] [id number] Phone: tel: fax: Referral ID Status Reason Start Date Expiration Date V isits Requested Visits Authorized [id number] Pending Review 09/19/2023 03/20/2025 1 1 * Consultation (Routine) - Authorized Specialty Diagnoses / Procedures Referred By Kadie casillas Referred To Contact Physical Therapy Diagnoses Pain in both knees, unspecified chronicity Michael Reynolds DO [address] [address] Phone: tel: fax: Referral ID Status Reason Start Date Expiration Date Visits Requested Visits Authorized [id number] Authorized Specialty Services Required 09/15/2023 03/16/2025 10 10 Scheduling Instructions Consult PT for modalities, ROM/ Flexibility , HEP, and quad/glute/core strengthening. Please include modalities as dry needling, manual techniques and if needed and other indicated therapies per PT. Reason for Visit * Reason Comments Consult Neck Pain Encounter Details Date Type Department Care Team (Late st Contact Info) Description 09/15/2023 10:00 AM EDT Office Visit Physical Medicine & Rehabilitation Clinic at [facility] [address] [place] [address] Michael Reynolds DO [address] [place] [address] Chronic pain of both knees [...] Sign Reading Time Taken Comments Blood Pressure 95/61 09/15/2023 9:54 AM EDT Pulse 77 09/15/2023 9:54 AM EDT Temperature - - Respiratory Rate 18 09/15/2023 9:54 AM EDT Oxygen Saturation 98% 09/15/2023 9:54 AM EDT Inhaled Oxygen Concentration - - Weight 122 kg (270 lb) 09/15/2023 9:54 AM EDT Height 190.5 cm (6' 3 ) 09/15/2023 9:54 AM EDT Body Mass Index 33.75 09/15/2023 9:54 AM EDT documented in this encounter Miscellaneous Notes * Progress Notes - Alexis Sims DO - 09/15/2023 10:00 AM EDT [facility] PHYSICAL MEDICINE AND REHABILITATION OUTPATIENT CONSULT NOTE Chief Complaint: b/l knee pain HPI Onset: worsening since Sep 2022 Location: R > L medial knee recess; deep, intraarticular Duration: constant Character: stabbing ache Radiation: none Timing: PM > AM Associated Factors: crepitus, CAD s/p CABG 2021, ischemic HFpEF ( EF 18%) Exacerbating Factors: walking, standing/seated long time Alleviating Factors: tylenol, jamel's rub Severity: On average pain level 6/10 and at worst pain level 7/10. Red flags: Negative for changes in bowel or bladder function, saddle anesthesia, night sweats, nighttime fever chills, and no unintentional weight loss greater than 20 lb in the last 6 months. Prior Treatment Have You Tried Any Benefit Comments Rest Yes Sometimes Ice No N/A Heat No N/A Topical Medications: Voltaren gel, Lidocaine, Aspercream, BenGay, Icy Hot, etc No N/A N/A NSAIDs Ibuprofen, Advil, Naproxen, Aleve, Meloxicam, Diclofenac, Celebrex Yes Sometimes N/A Tylenol Yes Yes Muscle Relaxants No N/A N/A Manual Medicine No N/A [id number]: N/A Other Treatments: none Physical Therapy: Patient has not completed PT for knee pain Injection Therapies: none Pertinent Imaging: none Review of Systems 14 point ROS negative other than mentioned above and HPI. Medical Histories Past Medical: Past Medical History: Diagnosis Date Essential (primary) hypertension Hypertension Type 2 diabetes mellitus without complications (CMS/HCC) Non-insulin dependent type 2 diabetes mellitus Past Surgical: No past surgical history on file. Allergies: Allergies Allergen Reactions Epinephrine Palpitations Contraindicated per cardiology Family History: Family History Problem Relation Name Age of Onset Coronary artery disease Mother Coronary artery disease Father Cardiac disorder Father Stroke Mother Diabetes Father Hypertension Mother Hypertension Father Family history reviewed with patient and not pertinent. Social History: Patient lives in [place], [place]. Lives in a(n) home with Education level includes college Current/Past work history: retired Tobacco: Denies use Alcohol: Affirms use Recreational drug use: Denies use Home Exercise Program: none Medications: Current Outpatient Medications: allopurinol (Zyloprim) 100 [...] day., Disp: , Rfl: ergocalciferol 1.25 MG (56030 UT) capsule, Take 1 capsule (50,000 Units) [...] by mouth if needed., Disp: , Rfl: Physical Exam: Visit Vitals BP 95/61 Pulse 77 Ht 1.905 m (6' 3 ) Wt 122 kg (270 lb) SpO2 98% BMI 33.75 kg/m?? Some recent data might be hidden General: Well nourished, no acute distress. Psych: Alert and oriented. Mood and affect normal. Eyes: PERRLA and EOMI. HEENT: Supple, no JVD. Unable to exam oral mucosa with facemask in place. Trachea midline Respiratory: nonlabored breathing and normal rate Cardiovascular: no edema and no clubbing Skin: warm, dry and intact. No rashes on exposed skin. Neuro: Speech fluent. Follows commands. Normal muscle tone. MSK: Gait intact, not antalgic. TTP b/l knee medial recess Motor Exam: Lower Extremity Motor Strength Right Left L2: Hip flexion (Iliopsoas) 06/18 06/18 L3: Knee extension (Quads) 06/18 06/18 L4: Ankle DF (TA) 06/18 06/18 L5: Great Toe DF (EHL) 06/18 06/18 S1: Ankle PF (Gastroc and Soleus) Foot Eversion (Peroneal longus/brevis) 06/18 06/18 S2: Great Toe flexion (FHL) Knee flexion 06/18 06/18 Neuro Exam: Lower Extremity Reflexes Right Left Patella +2 +2 Medial Hamstring +2 +2 Achilles +2 +2 Clonus Beats 0 0 Sensation Right Left L2: Proximal anterior thigh Normal Normal L3: Mid anterior thigh Normal Normal L4: Medial leg/foot, great toe (Saphenous n.) Normal Normal L5: Dorsum of mid foot Normal Normal S1: Lateral leg/foot, little toe, Back of leg (Sural n.) Normal Normal Special Tests: Knee Inspection/Palpation Right Left Erythema Negative Negative Edema Positive Positive Rashes Negative Negative Surgical incisions Negative Negative Joint line tenderness Positive Positive Pes Anserine tenderness Negative Negative SPECIAL TESTS RIGHT LEFT Kirti Negative Negative Anterior Drawer Negative Negative Posterior Drawer Negative Negative Varus test @ 0 & 30 degrees Positive Positive Valgus test @ 0 & 30 degrees Positive Positive Giovanni Negative Negative Thessaly Negative Negative Assessment: Dane Ray is a 72 y.o. male with b/l knee pain who presents to clinic for evaluation and recommendations. This is a/an Chronic Progressing problem Diagnoses and all orders for this visit: Chronic pain of both knees - Physical Therapy (outgoing); Future - XR Knee Right 4+ Views; Future - XR Knee Left 4+ Views; Future - diclofenac (Voltaren) 1 % topical gel; Place 2-4 g on the skin 3 (three) times a day. Apply as directed to b/l knee 3-4x/d for knee pain Bilateral primary osteoarthritis of knee Plan: Order PT Rx for pain control, inflammatory control, ROM, quad/glute/core strengthening for b/l kneepain and use modalities such as ice, heat, pool, TENS, stim, etc as see fit Order b/l knee XR to assess degree of arthritic change and for further treatment plan Rx Voltaren 1% gel to b/l knee 2-4g tid or qid for inflammatory control Educate patient on efficacy of pool therapy or swimming RTC in 2 weeks for repeat clinical evaluation and to consider further intervention (ie injections vs surgical referral) pending XR results Follow up in about 2 weeks (around 09/29/2023). Alexis Sims D.O. PGY-4 [facility] Physical Medicine & Rehabilitation Pager: [phone] Thank you very much for allowing me to participate in the care of this patient. If you have any questions, please do not hesitate to contact me. Cosigned by Michael Reynolds DO at 09/19/2023 1:04 PM EDT Associated attestation - Michael Reynolds DO - 09/19/2023 1:04 PM EDT I saw and evaluated the patient with the resident/fellow. I discussed the case with the resident/fellow and agree with the findings and plan as documented. documented in this encounter Plan of Treatment Scheduled Orders Name Type Priority Associated Diagnoses Orde r Schedule Injection - Large Joint Procedures Routine Chronic pain of both knees Bilateral primary osteoarthritis of knee 1 Occurrences starting 09/19/2023 until 09/18/2024 Scheduled Referrals Name Type Priority Associated Diagnoses Orde r Schedule Physical Therapy (outgoing) Outpatient Referral Routine Chronic pain of both knees Expected: 09/15/2023 (Approximate), Expires: 03/17/2025 documented as of this encounter Results * XR Knee Left 4+ Views (09/15/2023 11:22 AM EDT) Anatomical Region Laterality Modality Lower Extremities, Knee Left Digital Radiography Impressions 09/15/2023 1:01 PM EDT 1. Severe osteoarthritis of the right knee. 2. Minimal left patellofemoral degenerative changes. CRITICAL RESULT: ?? No. COMMUNICATION: Per this written report. Drafted by Wero Galvez MD on 09/15/2023 12:57 PM Final report signed by Wero Galvez MD on 09/15/2023 1:01 PM Narrative 09/15/2023 1:01 PM EDT CLINICAL INDICATION: pain TECHNIQUE: XR KNEE LEFT [...] of the lower leg. Minimal arterial calcification. Procedure Note Wero Galvez MD - 09/15/2023 CLINICAL INDICATION: pain TECHNIQUE: XR KNEE LEFT 4+ VIEWS, XR KNEE RIGHT 4+ VIEWS COMPARISON: None. FINDINGS: 4 views of the left knee show minimal chondrocalcinosis in the medialcompartment. Normal joint space and alignment. Minimal degenerativechanges of the patellofemoral joint. No fracture or osteonecrosis. Noeffusion. Minimal arterial calcification. 4 views of the right knee show lateral compartment joint space narrowingand osteophyte formation. Surgical clips in the posterior medial softtissues. Dystrophic calcifications in the distribution of the iliotibialband possibly related to prior injection. Skin calcifications areappreciated in the anterior soft tissues of the lower leg. Minimalarterial calcification. IMPRESSION: 1.Severe osteoarthritis of the right knee. 2.Minimal left patellofemoral degenerative changes. CRITICAL RESULT: No. COMMUNICATION: Per this written report. Drafted by Wero Galvez MD on 09/15/2023 12:57 PM Final report signed by Wero Galvez MD on 09/15/2023 1:01 PM Michael Reynolds DO IMG XR PROCEDURES Final Re sult * XR Knee Right 4+ Views (09/15/2023 11:22 AM EDT) Anatomical Region Laterality Modality Lower Extremities, Knee Right Digital Radiography Impressions 09/15/2023 1:01 PM EDT 1. Severe osteoarthritis of the right knee. 2. Minimal left patellofemoral degenerative changes. CRITICAL RESULT: ?? No. COMMUNICATION: Per this written report. Drafted by Wero Galvez MD on 09/15/2023 12:57 PM Final report signed by Wero Galvez MD on 09/15/2023 1:01 PM Narrative 09/15/2023 1:01 PM EDT CLINICAL INDICATION: pain TECHNIQUE: XR KNEE LEFT [...] of the lower leg. Minimal arterial calcification. Procedure Note Wero Galvez MD - 09/15/2023 CLINICAL INDICATION: pain TECHNIQUE: XR KNEE LEFT 4+ VIEWS, XR KNEE RIGHT 4+ VIEWS COMPARISON: None. FINDINGS: 4 views of the left knee show minimal chondrocalcinosis in the medialcompartment. Normal joint space and alignment. Minimal degenerativechanges of the patellofemoral joint. No fracture or osteonecrosis. Noeffusion. Minimal arterial calcification. 4 views of the right knee show lateral compartment joint space narrowingand osteophyte formation. Surgical clips in the posterior medial softtissues. Dystrophic calcifications in the distribution of the iliotibialband possibly related to prior injection. Skin calcifications areappreciated in the anterior soft tissues of the lower leg. Minimalarterial calcification. IMPRESSION: 1.Severe osteoarthritis of the right knee. 2.Minimal left patellofemoral degenerative changes. CRITICAL RESULT: No. COMMUNICATION: Per this written report. Drafted by Wero Galvez MD on 09/15/2023 12:57 PM Final report signed by Wero Galvez MD on 09/15/2023 1:01 PM Michael Reynolds DO IMG XR PROCEDURES Final Re sult documented in this encounter Visit Diagnoses Diagnosis Chronic pain of both knees- Primary Bilateral primary osteoarthritis of knee Pain in both knees, unspecified chronicity documented in this encounter Additional Health Concerns Assessment Noted Time A fall risk assessment has been complete d for the patient 09/15/2023 10:03 AM EDT A Body Mass Index follow-up plan has been documented for the patient 09/19/2023 1:04 PM EDT documented as of this encounter Care Teams Head Sawyer Automatic Relationship Specialty Start Date End Date Heriberto Quan MD [address] [place] [address] PCP - General 08/24/23 documented as of this encounter
--- OUTSIDE RECORDS SUMMARY | 2024-01-18 14:51 | XMS_ITS | Encounter Summary ---
Author Organization Healthcare Address [address] [place] [address] Care Team Providers Care Director Social Welfare Name Role Phone Heriberto Quan MD Primary Care Provider [phone] Encounter Details Date Type Department Care Team (Latest Contact Info) Description 09/15/2023 11:12 AM EDT - 09/15/2023 11:59 PM EDT Hospital Encounter [facility] [address] [facility], [address] [place] [address] Pain in both knees, unspecified chronicity Discharge Disposition: Home or Self Care Social [...] on file documented as of this encounter Medications at Time of Discharge allopurinol (Zyloprim) 100 MG tablet Take 1 tablet (100 mg) by mouth 1 (one) time each day. 08/23/2023 ASPIRIN 81 MG chewable tablet Chew 1 tablet (81 mg) 1 (one) time each day. 07/07/2016 Basaglar KwikPen 100 UNIT/ML injection pen Inject 26 Units under the skin 1 (one) time each day in the evening. 02/25/2023 carvedilol (Coreg) 25 MG tablet Take 1 tablet (25 mg) by mouth 2 (two) times a day with meals. 02/23/2023 cyanocobalamin 1000 MCG tablet Take 1 tablet (1,000 mcg) by mouth 1 (one) time each day. 02/25/2023 diclofenac (Voltaren) 1 % topical gelIndications:Ch ronic pain of both knees Place 2-4 g on the skin 3 (three) times a day. Apply as directed to b/l knee 3-4x/d for knee pain 150 g 1 09/15/2023 Entresto 24-26 MG tablet Take 1 tablet by mouth 2 (two) times a day. ergocalciferol 1.25 MG (52540 UT) capsule Take 1 capsule (50,000 Units) by mouth 1 (one) time per week. escitalopram (Lexapro) 20 MG tablet Take 1 tablet (20 mg) by mouth 1 (one) time each day. glipiZIDE XL 5 MG 24 hr tablet Take 2 tablets (10 mg) by mouth 1 (one) time each day. And 5mg in evening 02/25/2023 Jardiance 25 MG Take 1 tablet (25 mg) by mouth 1 (one) time each day. magnesium oxide (Mag-Ox) 400 MG tablet Take 1 tablet (400 mg) by mouth 2 (two) times a day. Ozempic, 1 MG/DOSE, 4 MG/3ML solution pen-injector 1 (one) time per week. rOPINIRole (Requip) 0.5 MG tablet Take 1 tablet (0.5 mg) by mouth every night. 04/12/2023 rosuvastatin (Crestor) 20 MG tablet Take 1 tablet (20 mg) by mouth every night. 06/23/2023 spironolactone (Aldactone) 25 MG tablet Take 1 tablet (25 mg) by mouth 1 (one) time each day. 07/07/2016 torsemide (Demadex) 10 MG tablet Take 1 tablet (10 mg) by mouth if needed. 04/11/2023 documented as of this encounter Plan of Treatment Not on file documented as of this encounter Procedures Procedure Name Priority Date/Time Associated Diagnosis Comments XR KNEE RIGHT 4+ VIEWS Routine 09/15/2023 11:22 AM EDT Pain in both knees, unspecified chronicity XR KNEE LEFT 4+ VIEWS Routine 09/15/2023 11:22 AM EDT Pain in both knees, unspecified chronicity documented in this encounter Results * XR Knee Right 4+ Views (09/15/2023 [...] PROCEDURES Final Re sult * XR Knee Left 4+ Views (09/15/2023 [...] documented in this encounter Visit Diagnoses Diagnosis Pain in both knees, unspecified chronicity documented in this encounter Additional Health Concerns Assessment Noted Time A fall risk assessment has been complete d for the patient 09/15/2023 10:03 AM EDT A Body Mass Index follow-up plan has been documented for the patient 09/19/2023 1:04 PM EDT documented as of this encounter Care Teams Director Social Welfare Relationship Specialty Start Date End Date Heriberto Quan MD [address] [place] [address] PCP - General 08/24/23 documented as of this encounter
--- OUTSIDE RECORDS SUMMARY | 2024-01-18 14:51 | XMS_ITS | Encounter Summary ---
Author Organization Healthcare Address [facility] [place] [address] Care Team Providers Care [place] Worker Name Role Phone Unavailable Primary Care Provider Unavailabl e Encounter Details Date Type Department Care Team ([facility] st Contact Info) Description 07/28/2016 [facility] Vitals Encounter [facility] OUTPATIENT CONVERSIONS [address] [place] [address] Provider, MD Rocael [address] [place] [id number] Social History Tobacco Use Types Packs/Day [...] - Inhaled Oxygen Concentration - - Weight 106 kg (233 lb 11 oz) 07/28/2016 12:48 PM EDT Height 190.5 cm (6' 3 ) 07/28/2016 12:48 PM EDT Body Mass Index 29.21 07/28/2016 12:48 PM EDT documented in this encounter Plan of Treatment Not on file documented as of this encounter Visit Diagnoses Not on filedocumented in this encounter
--- OUTSIDE RECORDS SUMMARY | 2024-01-18 14:51 | XMS_ITS | Encounter Summary ---
Author Organization [place] [address] Care Team Providers Care Distribution Operations Supervisor Name Role Phone Fili Sanchez MD Unavailable [phone] Aba Espinoza MD Primary Care Provider [phone] Encounter Details Date Type Department Care Team (Latest Contact Info) Description 12/23/2023 1:23 PM EST - 12/23/2023 11:59 PM [facility] Hospital Encounter NOEMI Cruz [facility] [address] [place] [address] Chronic systolic heart failure (HCC) (Primary Dx); Stage 3a chronic kidney disease (HCC); HTN (hypertension), benign; Chronic kidney disease-mineral and bone disorder Discharge Disposition: Home or Self Care Social [...] this encounter Medications at Time of Discharge allopurinoL (ZYLOPRIM) 100 mg Oral Tablet 100 mg daily. TAKES IN EVENING 06/22/2019 aspirin (ASPIRIN) 81 mg Oral Tablet, Chewable Take 1 Tab by mouth daily. 30 Tab 0 04/11/2014 bempedoic acid 180 mg Oral Tablet Take 180 mg by mouth daily. 05/06/2023 Blood Sugar Diagnostic (ACCU-CHEK GUIDE TEST STRIPS) [facility] Strip Use to test blood sugars daily. Dx Code:E11.65 100 Strip 3 11/12/2020 carvediloL (COREG) 25 mg Oral Tablet Take 25 mg by mouth 2 times daily. cyanocobalamin 1,000 mcg Oral Tablet Take 1 Tablet by mouth daily. Take one tab daily 02/25/2023 empagliflozin (JARDIANCE) 25 mg Oral TabletIndication s:Type 2 diabetes mellitus with hyperglycemia, with long-term current use of insulin (HCC) Take 1 Tablet by mouth daily. 90 Tablet 3 10/31/2023 ergocalciferol (DRISDOL) 1,250 mcg (50,000 unit) Oral CapsuleIndicatio ns:Type 2 diabetes mellitus with microalbuminuria , with long-term current use of insulin (HCC) Take 1 Capsule by mouth once a week. 12 Capsule 3 03/03/2023 escitalopram oxalate (LEXAPRO) 20 mg Oral Tablet Take by mouth daily. flash glucose sensor (FREESTYLE THIEN 2 SENSOR) [facility] Kit 1 Each by [facility].(Non-Drug; Combo Route) route every 14 days. 6 Kit 1 12/18/2021 FREESTYLE THIEN 2 READER [facility] Use as directed to test BS. DX code: E11.21 1 Each 12/18/2021 glipiZIDE (GLUCOTROL XL) 5 mg Oral Tablet Extended Rel 24 hr TAKE 3 TABLETS WITH FIRST MEAL OF THE DAY 300 Tablet 12/19/2023 Insulin [place], Disposable, (BD PATITO 2ND GEN PEN NEEDLE) 32 gauge x 32 [facility] Needle USE ONCE DAILY WITH INSULIN 90 Each 1 09/22/2023 magnesium oxide 400 mg magnesium Oral Capsule Take by mouth. Take 2 times daily nitroGLYCERIN (NITROLINGUAL) 400 mcg/spray TL [place], Non-Aerosol Place 1 [place] under the tongue every 5 minutes as needed for Chest pain. rOPINIRole (REQUIP) 0.5 mg Oral Tablet Take 0.5 mg by mouth. Takes once daily at night 01/30/2021 rosuvastatin (CRESTOR) 20 mg Oral Tablet Take 20 mg by mouth daily. 07/27/2022 sacubitriL-valsa rtan (ENTRESTO) 24-26 mg Oral Tablet Take 1 Tab by mouth 2 times daily. semaglutide (OZEMPIC) 1 mg/dose (4 mg/3 mL) SubQ Pen InjectorIndicati ons:Type 2 diabetes mellitus with diabetic nephropathy, with long-term current use of insulin (HCC) Subcutaneous (Inject under the skin) 1 mg once a week. 3 mL 11 06/01/2023 spironolactone (ALDACTONE) 25 mg Oral Tablet Take 25 mg by mouth daily. torsemide (DEMADEX) 10 mg Oral Tablet 10 mg. Takes one tab MWF 05/25/2021 BASAGLAR KWIKPEN U-100 INSULIN 100 unit/mL (3 mL) SubQ Insulin Pen Subcutaneous (Inject under the skin) 26 Units every evening. 15 mL 3 02/25/2023 4 documented as of this encounter Discharge Disposition Disposition Code Departure Means Destination Home or Self Care documented in this encounter Plan of Treatment Upcoming Encounters Date Type Department Care Team (Late st Contact Info) Description 04/26/2024 9:00 AM EDT Office Visit [facility] Nephrology [place] [address] [facility] [place] [place] [address] Julio Silva MD [address] [place] [address] documented as of this encounter Procedures Procedure Name Priority Date/Time Associated Diagnosis Comments BILIRUBIN DIRECT Routine 12/23/2023 1:27 PM EST Stage 3a chronic kidney disease (HCC) PROTEIN/CREATININE RATIO URINE Routine 12/23/2023 1:27 PM EST Stage 3a chronic kidney disease (HCC) HTN (hypertension), benign CBC Routine 12/23/2023 1:27 PM EST Chronic systolic heart failure (HCC) VITAMIN D 25 HYDROXY Routine 12/23/2023 1:27 PM EST Chronic kidney disease-mineral and bone disorder MICROALBUMIN/CREATININE RATIO URINE Routine 12/23/2023 1:27 PM EST Stage 3a chronic kidney disease (HCC) HTN (hypertension), benign URINALYSIS Routine 12/23/2023 1:27 PM EST Stage 3a chronic kidney disease (HCC) ALANINE AMINOTRANSFERASE Routine 1:27 PM EST Stage 3a chronic kidney disease (HCC) ASPARTATE AMINOTRANSFERASE Routine 12/23/2023 1:27 PM EST Stage 3a chronic kidney disease (HCC) PROTEIN TOTAL-BLOOD Routine 12/23/2023 1 :27 PM EST Stage 3a chronic kidney disease (HCC) ALKALINE PHOSPHATASE Routine 12/23/2023 1:27 PM EST Stage 3a chronic kidney disease (HCC) PARATHYROID HORMONE INTACT Routine 12/23/2023 1:27 PM EST Chronic kidney disease-mineral and bone disorder NT PROBNP Routine 12/23/2023 1:27 PM EST Chronic systolic heart failure (HCC) IRON LEVEL Routine 12/23/2023 1:27 PM EST Chronic systolic heart failure (HCC) BILIRUBIN TOTAL Routine 12/23/2023 1:27 PM EST Stage 3a chronic kidney disease (HCC) RENAL FUNCTION PANEL Routine 12/23/2023 1:27 PM EST Stage 3a chronic kidney disease (HCC) HTN (hypertension), benign documented in this encounter Results * ALANINE AMINOTRANSFERASE (12/23/2023 1:27 PM EST) ALT 24 <=41 U/L 12/23/2023 9:0 3 PM EST [facility] Blood VENOUS BLOOD / Unknown Venipuncture / Unknown 12/23/2023 1:27 PM EST 12/23/2023 1:27 PM EST us Julio Silva MD CHEMISTRY ORDERABLES Final Resul t Performing Organization Address [facility] Co de Phone Number [facility] [address] , [place] [phone] * ASPARTATE AMINOTRANSFERASE (12/23/2023 1:27 PM EST) AST 24 <=40 U/L 12/23/2023 9:0 3 PM EST [facility] Blood VENOUS BLOOD / Unknown Venipuncture / Unknown 12/23/2023 1:27 PM EST 12/23/2023 1:27 PM EST us Julio Silva MD CHEMISTRY ORDERABLES Final Resul t Performing Organization Address [facility] de Phone Number [facility] [address] , [place] [address] * PROTEIN TOTAL-BLOOD (12/23/2023 1:27 PM EST) Total Protein 7.5 6.4 - 8.3 gm/dL 12/23/2023 9:03 PM EST [email or web address] Blood VENOUS BLOOD / Unknown Venipuncture / Unknown 12/23/2023 1:27 PM EST 12/23/2023 1:27 PM EST us Julio Silva MD CHEMISTRY ORDERABLES Final Resul t Performing Organization Address [facility] Co de Phone Number [facility] [address] , [place] [address] * ALKALINE PHOSPHATASE (12/23/2023 1:27 PM EST) Alk Phos 49 40 - 129 U/L 12/23/2023 9:03 PM EST [email or web address] Blood VENOUS BLOOD / Unknown Venipuncture / Unknown 12/23/2023 1:27 PM EST 12/23/2023 1:27 PM EST us Julio Silva MD CHEMISTRY ORDERABLES Final Resul t Performing Organization Address [facility] Co de Phone Number [facility] [employer], [address] , [place] [address] * BILIRUBIN TOTAL (12/23/2023 1:27 PM EST) Bili Total 0.4 0.2 - 1.4 mg/dL 12/23/2023 9:03 PM EST [facility] Blood VENOUS BLOOD / Unknown Venipuncture / Unknown 12/23/2023 1:27 PM EST 12/23/2023 1:27 PM EST us Julio Silva MD CHEMISTRY ORDERABLES Final Resul t Performing Organization Address [facility] Co de Phone Number [facility] + [facility] [address] , [place] [address] * BILIRUBIN DIRECT (12/23/2023 1:27 PM EST) Pathologist [facility] Bili Direct <0.2 0.0 - 0.3 mg/dL 12/23/2023 9:03 PM EST [facility] [employer] Blood VENOUS BLOOD / Unknown Venipuncture / Unknown 12/23/2023 1:27 PM EST 12/23/2023 1:27 PM EST us Julio Silva MD CHEMISTRY ORDERABLES Final Resul t Performing Organization Address [facility] Co de Phone Number [facility], [facility] [address] , [place] [address] * (ABNORMAL) URINALYSIS (12/23/2023 1:27 PM EST) UA Color Colorless 12/23/2023 8:04 PM EST [facility] UA Appear Clear Clear 12/23/2023 8:04 PM EST [facility] UA Glucose 4+ (>1000mg/dL) (A) Negative mg/dL 12/23/2023 8:04 PM EST [facility] UA Ketones Negative Negative mg/dL 12/23/2023 8:04 PM EST [facility] UA Blood Negative Negative 12/23/2023 8:04 PM EST [facility] UA pH 6.0 5.0 - 8.0 pH 12/23/2023 8:04 PM EST [facility] UA Protein Negative Negative mg/dL 12/23/2023 8:04 PM EST [facility] UA Urobilinogen Normal <=1 mg/dL 8:04 PM EST [facility] UA Bili Negative Negative 12/23/2023 8:04 PM EST [facility] UA Nitrite Negative Negative 12/23/2023 8:04 PM EST [facility] UA Leuk Est Negative Negative 12/23/2023 8:04 PM EST [facility] UA Spec Grav 1.011 1.001 - 1.035 no units 12/23/2023 8:04 PM EST [facility] Comment:Reference range ji d for random specimens only. Urine URINE SPECIMEN COLLECTION, CLEAN CATCH / Unknown 12/23/2023 1:27 PM EST 12/23/2023 1:27 PM EST us Julio Silva MD URINE ORDERABLES Final Result [facility] [employer], [facility] [address] , [address] [place] [phone] * PARATHYROID HORMONE INTACT (12/23/2023 1:27 PM EST) PTH Intact 62.70 15.00 - 65.00 pg/mL 12/24/2023 12:05 AM EST [facility], [facility] Blood VENOUS BLOOD / Unknown Venipuncture / Unknown 12/23/2023 1:27 PM EST 12/23/2023 1:27 PM EST Narrative [facility], [facility] - 12/24/2023 12:05 AM EST Intact PTH ? Calcium ? Interpretation ? ------- ? 15 - 65 ? 8.6 - 10.2 ?Normal ?? > 65 ? > 10.2 ? Primary Hyperparathyroidism ?? < 20 ? > 10.2 ? Non-Parathyroid hypercalcemia ?? < 15 ? < 8.6 ?Hypoparathyroidism Consider the above as guidelines only. ??PTH results should be interpreted in conjunction with the total or ionized calcium level. ??The finding of a persistently high-normal calcium accompanied by a high-normal PTH (or a low-normal calcium accompanied by a low-normal PTH) warrants further investigation. Although the PTH may itself be within normal limits, it may be inappropriately high (or low) relative to the circulating calcium level. ?? Ingestion of pratik doses of biotin (>5 mg/day) taken within 8 hours of drawing blood sample can interfere with this immunoassay test. Julio Silva MD CHEMISTRY ORDERABLES Final Resul t Performing Organization Address [facility] de Phone Number [facility] [address] [place] [address] , [place] [address] * VITAMIN D 25 HYDROXY (12/23/2023 1:27 PM EST) Pathologist [facility] Vit D 25 OH 32.3 30.0 - 150.0 ng/mL 12/24/2023 1:52 AM EST [facility] Comment: Preferred: >= 30 ng/mL Insufficient: 21-29 ng/mL Deficient <= 20 ??ng/mL Possible Toxicity: >150 ng/mL Samples should not be taken from patients receiving therapy with high biotin doses (i.e. > 5 mg/day) until at least 8 hours following the last biotin administration. Blood VENOUS BLOOD / Unknown Venipuncture / Unknown 12/23/2023 1:27 PM EST 12/23/2023 1:27 PM EST Julio Silva MD CHEMISTRY ORDERABLES Final Resul t Performing Organization Address [facility] de Phone Number [facility] [address] , [place] [address] * (ABNORMAL) RENAL FUNCTION PANEL (12/23/2023 1:27 PM EST) Sodium 137 136 - 145 mmol/L 12/23/2023 9:03 PM EST [facility] Potassium 4.6 3.5 - 5.0 mmol/L 12/23/2023 9:03 PM EST [facility] Chloride 98 98 - 107 mmol/L 12/23/2023 9:03 PM EST [facility] Total CO2 27 22 - 29 mmol/L 12/23/2023 9:03 PM EST [facility] Anion Gap 12 7 - 16 mmol/L 12/23/2023 9:03 PM EST [facility] Calcium 9.6 8.8 - 10.4 mg/dL 12/23/2023 9:03 PM EST [facility] Glucose Lvl 136(H) 70 - 99 mg/dL 12/23/2023 9:03 PM EST [facility] BUN 28(H) 8 - 23 mg/dL 12/23/2023 9:03 PM EST [facility] Creatinine 1.58(H) 0.67 - 1.30 mg/dL 12/23/2023 9:03 PM EST [facility] Albumin 4.7(H) 3.2 - 4.6 gm/dL 12/23/2023 9:03 PM EST [facility] Phosphorus 3.7 2.5 - 4.5 mg/dL 12/23/2023 9:03 PM EST [facility] eGFR (CKD-EPIcr 2020) 46(L) >=60 mL/min/1.7 3 m2 12/23/2023 9:03 PM EST [facility] Comment:Estimated GFR was ca lculated using the CKD-EPIcr (2020) equation refit without race. The equation is recommended by the National Kidney Foundation - [place] [employer] of Nephrology Task Force. Blood VENOUS BLOOD / Unknown Venipuncture / Unknown 12/23/2023 1:27 PM EST 12/23/2023 1:27 PM EST us Julio Silva MD CHEMISTRY ORDERABLES Final Resul t Performing Organization Address [facility] Co de Phone Number [facility] [employer] [facility] [employer], [facility] [address] , [place] [address] [facility] [address] [place] [address] * PROTEIN/CREATININE RATIO URINE (12/23/2023 1:27 PM EST) Urine Protein <6.0 mg/dL 12/23/2023 9:50 PM EST [facility] Urine Creatinine 39.7 mg/dL 12/23/2023 9:50 PM EST [facility] Ur Protein/Creat <0.15 mg/mg 12/23/2023 9:50 PM EST [facility] Urine URINE SPECIMEN COLLECTION / Unknown 12/23/2023 1:27 PM EST 12/23/2023 1:27 PM EST Julio Silva MD URINE ORDERABLES Final Result Performing Organization Address [facility] Co de Phone Number [facility] [employer], [facility] [address] , [place] [address] [facility] 1 [place] [address] * MICROALBUMIN/CREATININE RATIO URINE (12/23/2023 1:27 PM EST) Urine Microalb 12.0 mg/L 12/23/2023 9:50 PM EST [facility] Urine Creatinine 39.7 mg/dL 12/23/2023 9:50 PM EST [facility] Ur Microalb/Creat 30 0 - 30 mg/g 12/23/2023 9:50 PM EST [facility] Urine URINE SPECIMEN COLLECTION / Unknown 12/23/2023 1:27 PM EST 12/23/2023 1:27 PM EST Julio Silva MD URINE ORDERABLES Final Result Performing Organization Address [facility]/ZIP Co de Phone Number [facility], [facility] [address] , [place] [address] [facility] 1 [place] [address] * IRON LEVEL (12/23/2023 1:27 PM EST) Pathologist [facility] Iron 119 50 - 170 mcg/dL 12/23/2023 9:03 PM EST [email or web address] Blood VENOUS BLOOD / Unknown Venipuncture / Unknown 12/23/2023 1:27 PM EST 12/23/2023 1:27 PM EST us Referring Nonstaff CHEMISTRY ORDERABLES Final Re sult Performing Organization Address [facility] Co de Phone Number [facility] [address] , [place] [address] * (ABNORMAL) NT PROBNP (12/23/2023 1:27 PM EST) [facility] NT Pro-BNP 688(H) <=229 pg/mL 12/24/2023 1:38 AM EST [email or web address] Blood VENOUS BLOOD / Unknown Venipuncture / Unknown 12/23/2023 1:27 PM EST 12/23/2023 1:27 PM EST Narrative [facility] - 12/24/2023 1:38 AM EST An NT pro-BNP level less than 300 pg/mL in any patient, regardless of age, effectively rules out acute CHF with a 99% negative predictive value. Ingestion of pratik doses of biotin (>5 mg/day) taken within 8 hours of drawing blood sample can interfere with this immunoassay test. us Referring Nonstaff CHEMISTRY ORDERABLES Final Re sult Performing Organization Address [facility] Co de Phone Number [email or web address] [address] , [place] [address] * (ABNORMAL) CBC (12/23/2023 1:27 PM EST) Pathologist [facility] WBC 12.0(H) 3.7 - 10.3 x10(3)/mcL 12/23/2023 8:39 PM EST [facility] RBC 3.99(L) 4.60 - 6.10 x10(6)/mcL 12/23/2023 8:39 PM EST [facility] Hgb 13.8 13.7 - 17.5 g/dL 12/23/2023 8:39 PM EST [facility] Hct 41.4 40.0 - 51.0 % 12/23/2023 8:39 PM EST [facility] MCV 103.8(H) 80.0 - 100.0 fL 12/23/2023 8:39 PM EST [facility] MCH 34.6(H) 26.0 - 34.0 pg 12/23/2023 8:39 PM EST [facility] MCHC 33.3 30.7 - 35.5 g/dL 12/23/2023 8:39 PM EST [facility] RDW 12.7 <=14.9 % 12/23/2023 8:39 PM EST [facility] Platelet 165 155 - 369 x10(3)/mcL 12/23/2023 8:39 PM EST [facility] MPV 13.4(H) 8.8 - 12.5 fL 12/23/2023 8:39 PM EST [facility] Blood VENOUS BLOOD / Unknown Venipuncture / Unknown 12/23/2023 1:27 PM EST 12/23/2023 1:27 PM EST us Referring Nonstaff HEMATOLOGY ORDERABLES Final R esult [facility] [address] [place] [address] documented in this encounter Visit Diagnoses Diagnosis Chronic systolic heart failure (HCC)- Primary Chronic systolic heart failure Stage 3a chronic kidney disease (HCC) HTN (hypertension), benign Essential hypertension, benign Chronic kidney disease-mineral and bone disorder documented in this encounter Orders Lab Orders Without Results Count Last Ordered D ate First Ordered Date HEPATIC FUNCTION PANEL 1 12/23/2023 documented in this encounter Additional Health Concerns Assessment Noted Time A fall risk assessment has been complete d for the patient 10/19/2023 9:50 AM EDT documented as of this encounter Care Teams Distribution Operations Supervisor Relationship Specialty Start Date End Date Aba Espinoza MD [address] [place] [phone] PCP - General Family Medicine 07/27/16 Fili Sanchez MD [address] [address] Internal Medicine-Endocrinology, Diabetes & Metabolism 04/11/14 documented as of this encounter
--- OUTSIDE RECORDS SUMMARY | 2024-01-18 14:51 | XMS_ITS | Encounter Summary ---
Author Organization [facility] [address] Care Team Providers Care Freight Car Repairer Name Role Phone Fili Sanchez MD Unavailable [phone] Aba Espinoza MD Primary Care Provider [phone] Reason for Visit * Reason Onset Date Comments Cancellation 01/18/2024 Encounter Details Date Type Department Care Team (Late st Contact Info) Description 01/18/[address] [facility] [address] [facility] [address] [place] [id number] Dat Onofre MD [address] [place] [address] Cancellation Social History Tobacco Use Types Packs/Day Years [...] encounter Miscellaneous Notes * Telephone Encounter - Katt Hernandez Crystal - 01/18/2024 8:11 AM EST Noted no labs to review * Telephone Encounter - Saida Cai - 01/18/2024 8:06 AM EST pt cancelled appt for 01/17 pt fell will call back to rs documented in this encounter Plan of Treatment Upcoming Encounters Date Type Department Care Team (Late st Contact Info) Description 04/26/2024 9:00 AM EDT Office Visit [facility] Nephrology [place] [address] [facility] [address] [facility] [address] [place] [address] Julio Silva MD [address] [place] [address] documented as of this encounter Visit Diagnoses Not on filedocumented in this encounter Additional Health Concerns Assessment Noted Time A fall risk assessment has been complete d for the patient 10/19/2023 9:50 AM EDT documented as of this encounter Care Teams Freight Car Repairer Relationship Specialty Start Date End Date Aba Espinoza MD [address] [place] [phone] PCP - General Family Medicine 07/27/16 Fili Sanchez MD [address] [facility] [address] [place] [address] Internal Medicine-Endocrinology, Diabetes & Metabolism 04/11/14 documented as of this encounter
--- OUTSIDE RECORDS SUMMARY | 2024-01-18 14:51 | XMS_ITS | Encounter Summary ---
Author Organization Healthcare Address [address] [place] [address] Care Team Providers Care Extension Associate Name Role Phone Aba Espinoza MD Primary Care Provider [phone] Heriberto Quan MD Primary Care Provider [phone] Encounter Details Date Type Department Care Team (Late st Contact Info) Description 07/01/2023 Orders Only External Location [address] [place] [address] Provider, External Social History Tobacco Use Types Packs/Day Years Used Date Smoking Tobacco: Every Day Alcohol Use Standard Drinks/Week Comments Yes 0 (1 standard drink = 0.6 oz pure alcohol) Alcoholic Drinks/day: History of alcohol abuse Sex and Gender Information Value Date Recorded Sex Assigned at Not on file Legal Sex Male 6:27 PM EDT Gender Identity Not on file Sexual Orientation Not on file documented as of this encounter Plan of Treatment Not on file documented as of this encounter Procedures Procedure Name Priority Date/Time Associated Diagnosis Comments XR OUTSIDE IMAGES 07/01/2023 11:26 AM EDT documented in this encounter Results * XR OUTSIDE IMAGES (07/01/2023 11:26 AM EDT) Anatomical Region Laterality Modality Radiographic Emma ging 07/01/2023 11:2 6 AM EDT us External Provider IMG XR PROCEDURES Final Result documented in this encounter Visit Diagnoses Not on filedocumented in this encounter Care Teams Extension Associate Relationship Specialty Start Date End Date Aba Espinoza MD [address] [place], [place] [id number] PCP - General 06/27/20 08/23/23 Heriberto Quan MD [address] [facility] [address] [facility] [place] [address] PCP - General 08/24/23 documented as of this encounter
--- OUTSIDE RECORDS SUMMARY | 2024-01-18 14:51 | XMS_ITS | Referral Summary ---
Author Organization [facility] Address [address] [place] [phone] Phone Care Team Providers [employer] Leader Name Role Phone Fili Sanchez MD Unavailable [phone] Aba Espinoza MD Primary Care Provider Encounters Date Type Department Care Team Description 01/18/2024 Telephone [facility] [address] [facility] [address] [place] [phone] Dat Onofre MD Cancellation 01/14/2024 Travel 01/13/2024 Refill [facility] [address] [facility] [address] [place] [phone] Lakisha Gupta APRN Medication Refill 12/23/2023 1:23 PM EST - 12/23/2023 11:59 PM EST Hospital Encounter [facility] [address] [place] [address] Chronic systolic heart failure (HCC) (Primary Dx); Stage 3a chronic kidney disease (HCC); HTN (hypertension), benign; Chronic kidney disease-mineral and bone disorder Discharge Disposition: Home or Self Care 12/15/2023 Refill [facility] [address] [place] [address] Lakisha Gupta APRN Medication Refill 10/31/2023 Refill [facility] [address] [phone] Lakisha Gupta APRN Medication Refill 10/19/2023 10:00 AM EDT Office Visit [facility] [address] [phone] Dat Onofre MD Type 2 diabetes mellitus with microalbuminuria, with long-term current use of insulin (HCC) (Primary Dx); Type 2 diabetes mellitus with hyperglycemia, with long-term current use of insulin (HCC); Hypertension associated with diabetes (HCC); Hyperlipidemia associated with type 2 diabetes mellitus ([facility]) from Last 3 Months Allergies Active Allergy Reactions Criticality Noted Date Comments Pioglitazone Other (See Comments) 02/25/2023 HF Epinephrine Other (See Comments) 05/04/2021 Contraindicated related to pt's EF=25% Metformin Swelling Medium 10/28/2022 Swelling of feet and myalgias Rosuvastatin Other (See Comments) 04/11/2023 Leg cramps and pain. Medications aspirin (ASPIRIN) 81 mg Oral Tablet, Chewable Take 1 Tab by mouth daily. 30 Tab 0 04/11/19 15 Active escitalopram oxalate (LEXAPRO) 20 mg Oral Tablet Take by mouth daily. Active spironolactone (ALDACTONE) 25 mg Oral Tablet Take 25 mg by mouth daily. Active sacubitriL-rylee sartan (ENTRESTO) 24-26 mg Oral Tablet Take 1 Tab by mouth 2 times daily. Active nitroGLYCERIN (NITROLINGUAL) 400 mcg/spray TL [place], Non-Aerosol Place 1 [place] under the tongue every 5 minutes as needed for Chest pain. Active allopurinoL (ZYLOPRIM) 100 mg Oral Tablet 100 mg daily. TAKES IN EVENING 06/22/19 20 Active Blood Sugar Diagnostic (ACCU-CHEK GUIDE TEST STRIPS) Misc Strip Use to test blood sugars daily. Dx Code:E11.65 100 Strip 3 11/13/19 21 Active Additional Information Patient not taking.Reported on 10/19/2023 magnesium oxide 400 mg magnesium Oral Capsule Take by mouth. Take 2 times daily Active rOPINIRole (REQUIP) 0.5 mg Oral Tablet Take 0.5 mg by mouth. Takes once daily at night 01/31/20 21 Active torsemide (DEMADEX) 10 mg Oral Tablet 10 mg. Takes one tab MWF 05/26/19 22 Active flash glucose sensor (FREESTYLE THIEN 2 SENSOR) [facility] Kit 1 Each by [facility].(Non-Drug; Combo Route) route every 14 days. 6 Kit 1 12/19/19 22 Active FREESTYLE THIEN 2 READER [facility] Use as directed to test BS. DX code: E11.21 1 Each 12/19/19 22 Active carvediloL (COREG) 25 mg Oral Tablet Take 25 mg by mouth 2 times daily. Active rosuvastatin (CRESTOR) 20 mg Oral Tablet Take 20 mg by mouth daily. 07/28/19 23 Active cyanocobalamin 1,000 mcg Oral Tablet Take 1 Tablet by mouth daily. Take one tab daily 02/25/19 24 Active ergocalciferol (DRISDOL) 1,250 mcg (50,000 unit) Oral CapsuleIndicat ions:Type 2 diabetes mellitus with microalbuminur ia, with long-term current use of insulin ([facility]) Take 1 Capsule by mouth once a week. 12 Capsule 3 03/03/19 24 Active bempedoic acid 180 mg Oral Tablet Take 180 mg by mouth daily. 05/06/19 24 Active semaglutide (OZEMPIC) 1 mg/dose (4 mg/3 mL) SubQ Pen InjectorIndica tions:Type 2 diabetes mellitus with diabetic nephropathy, with long-term current use of insulin (HCC) Subcutaneous (Inject under the skin) 1 mg once a week. 3 mL 11 06/01/19 24 Active Insulin [place], Disposable, (BD PATITO 2ND GEN PEN NEEDLE) 32 gauge x /32 [facility] Needle USE ONCE DAILY WITH INSULIN 90 Each 1 09/22/19 24 Active empagliflozin (JARDIANCE) 25 mg Oral TabletIndicati ons:Type 2 diabetes mellitus with hyperglycemia, with long-term current use of insulin (HCC) Take 1 Tablet by mouth daily. 90 Tablet 3 10/31/19 24 Active glipiZIDE (GLUCOTROL XL) 5 mg Oral Tablet Extended Rel 24 hr TAKE 3 TABLETS WITH FIRST MEAL OF THE DAY 300 Tablet 12/19/19 24 Active BASAGLAR KWIKPEN U-100 INSULIN 100 unit/mL (3 mL) SubQ Insulin Pen Inject 20 units daily 30 Each 1 01/16/20 24 Active BASAGLAR KWIKPEN U-100 INSULIN 100 unit/mL (3 mL) SubQ Insulin Pen Subcutaneous (Inject under the skin) 26 Units every evening. 15 mL 3 02/25/19 24 024 Discontinued Active Problems Problem Noted Date Diagnosed Date Hyperlipidemia associated with type 2 diabetes m ellitus 06/01/2023 Obesity, diabetes, and hypertension syndrome 01/2024 Vitamin D deficiency 11/25/2022 Stage 3a chronic kidney disease 11/25/2022 Type 2 diabetes mellitus wit h microalbuminuria, with long-term current use of insulin 10/28/2022 Long-term insulin use 10/28/2022 Encounter for long-term (current) use of medicat ions 10/28/2022 Dyslipidemia associated with type 2 diabetes shereen litus 10/28/2022 Type 2 diabetes mellitus wit h diabetic nephropathy, with long-term current use of insulin 02/22/2019 Severe obesity (BMI 35.0-39.9) with comorbidity 06/01/2018 Hypertension associated with diabetes 08/13/2014 Screening PSA (prostate specific antigen) 2014 Dyslipidemia 04/11/2014 Male erectile disorder 04/11/2014 Resolved Problems Problem Noted Date Diagnosed Date Resolved Date Essential hypertension 07/29/201507/27 Uncontrolled type 2 diabetes mellitus without complication, without long-term current use of insulin 04/11/2014 02/22/2019 HTN (hypertension) 04/11/2014 6 Immunizations Name Administration Dates Next Due Influenza Nasal, Unspecified Formulation 019 Tdap 02/06/2020 Varicella 02/06/2020 Social History Tobacco Use Types Packs/Day Years Used Date Smoking Tobacco: Former Cigarettes 2.5 8.1 1 03/02/2012 - 06/25/2016 Passive Smoke Exposure: Past Smokeless Tobacco: Never Tobacco Cessation:Counseling Given: Not Answered Comments:3 months ago Alcohol Use Standard Drinks/Week [...] Sign Reading Time Taken Comments Blood Pressure 116/60 10/19/2023 9:52 AM EDT Pulse 74 10/19/2023 9:52 AM EDT Temperature 35.9 ??C (96.6 ??F) 10/11/2023 9:20 AM ED T Respiratory Rate 16 10/19/2023 9:52 AM EDT Oxygen Saturation - - Inhaled Oxygen Concentration - - Weight 121 kg (266 lb 12.8 oz) 10/19/2023 9:52 A M EDT Height 185.4 cm (6' 1 ) 10/19/2023 9:52 AM EDT Body Mass Index 35.2 10/19/2023 9:52 AM EDT Plan of Treatment Upcoming Encounters Date Type Department Care Team (Late st Contact Info) Description 04/26/2024 9:00 AM EDT Office Visit [facility] [place] [address] [place] [address] Julio Silva MD [address] [place] [address] Procedures Procedure Name Priority Date/Time Associated Diagnosis Comments ALANINE AMINOTRANSFERASE Routine 1:27 PM EST Stage 3a chronic kidney disease (HCC) ASPARTATE AMINOTRANSFERASE Routine 12/23/2023 1:27 PM EST Stage 3a chronic kidney disease (HCC) PROTEIN TOTAL-BLOOD Routine 12/23/2023 1 :27 PM EST Stage 3a chronic kidney disease (HCC) ALKALINE PHOSPHATASE Routine 12/23/2023 1:27 PM EST Stage 3a chronic kidney disease (HCC) BILIRUBIN TOTAL Routine 12/23/2023 1:27 PM EST Stage 3a chronic kidney disease (HCC) BILIRUBIN DIRECT Routine 12/23/2023 1:27 PM EST Stage 3a chronic kidney disease (HCC) URINALYSIS Routine 12/23/2023 1:27 PM EST Stage 3a chronic kidney disease (HCC) PARATHYROID HORMONE INTACT Routine 12/23/2023 1:27 PM EST Chronic kidney disease-mineral and bone disorder VITAMIN D 25 HYDROXY Routine 12/23/2023 1:27 PM EST Chronic kidney disease-mineral and bone disorder RENAL FUNCTION PANEL Routine 12/23/2023 1:27 PM EST Stage 3a chronic kidney disease (HCC) HTN (hypertension), benign PROTEIN/CREATININE RATIO URINE Routine 12/23/2023 1:27 PM EST Stage 3a chronic kidney disease (HCC) HTN (hypertension), benign MICROALBUMIN/CREATININE RATIO URINE Routine 12/23/2023 1:27 PM EST Stage 3a chronic kidney disease (HCC) HTN (hypertension), benign IRON LEVEL Routine 12/23/2023 1:27 PM EST Chronic systolic heart failure (HCC) NT PROBNP Routine 12/23/2023 1:27 PM EST Chronic systolic heart failure (HCC) CBC Routine 12/23/2023 1:27 PM EST Chronic systolic heart failure (HCC) POCT GLYCATED HEMOGLOBIN, TOTAL Routine 10/19/2023 9:58 AM EDT Type 2 diabetes mellitus with hyperglycemia, with long-term current use of insulin (HCC) HM DIABETES EYE EXAM Routine 05/20/2023 LIPID PANEL REFLEX Routine 10/27/2022 10 :59 AM EDT Type 2 diabetes mellitus with diabetic nephropathy, with long-term current use of insulin (HCC) from Last 3 Months or Most Recently Relevant to Health Maintenance Results * BILIRUBIN DIRECT (12/23/2023 1:27 PM EST) Bili Direct <0.2 0.0 - 0.3 mg/dL 12/23/2023 9:03 PM EST [facility] [employer], [facility] Blood VENOUS BLOOD / Unknown Venipuncture / Unknown 12/23/2023 1:27 PM EST 12/23/2023 1:27 PM EST us Julio Silva MD CHEMISTRY ORDERABLES Final Resul t Performing Organization Address City/[facility]/ZIP Co de Phone Number [facility] [employer], [facility] [address] [facility] , [place] [address] * PROTEIN/CREATININE RATIO URINE (12/23/2023 1:27 PM EST) Urine Protein <6.0 mg/dL 12/23/2023 9:50 PM EST [facility] Urine Creatinine 39.7 mg/dL 12/23/2023 9:50 PM EST [facility] Ur Protein/Creat <0.15 mg/mg 12/23/2023 9:50 PM EST [facility] Urine URINE SPECIMEN COLLECTION / Unknown 12/23/2023 1:27 PM EST 12/23/2023 1:27 PM EST us Julio Silva MD URINE ORDERABLES Final Result Performing Organization Address [facility] de Phone Number [facility] [employer], [facility] [address] [facility] , [place] [address] [facility] [address] [place], [place] [id number] * (ABNORMAL) CBC (12/23/2023 1:27 PM EST) WBC 12.0(H) 3.7 - 10.3 x10(3)/mcL 12/23/2023 8:39 PM EST [facility] RBC 3.99(L) 4.60 - 6.10 x10(6)/mcL 12/23/2023 8:39 PM EST [facility] Hgb 13.8 13.7 - 17.5 g/dL 12/23/2023 8:39 PM EST [facility] Hct 41.4 40.0 - 51.0 % 12/23/2023 8:39 PM EST [facility] MCV 103.8(H) 80.0 - 100.0 fL 12/23/2023 8:39 PM EST [facility] MCH 34.6(H) 26.0 - 34.0 pg 12/23/2023 8:39 PM EST [facility] MCHC 33.3 30.7 - 35.5 g/dL 12/23/2023 8:39 PM EST [facility] RDW 12.7 <=14.9 % 12/23/2023 8:39 PM EST [facility] Platelet 165 155 - 369 x10(3)/mcL 12/23/2023 8:39 PM EST [facility] [employer], [facility] MPV 13.4(H) 8.8 - 12.5 fL 12/23/2023 8:39 PM EST [facility] [employer], [facility] Blood VENOUS BLOOD / Unknown Venipuncture / Unknown 12/23/2023 1:27 PM EST 12/23/2023 1:27 PM EST us Referring Nonstaff HEMATOLOGY ORDERABLES Final R esult [facility] [employer], [facility] [address] [facility] , [address] [place] [id number] * VITAMIN D 25 HYDROXY (12/23/2023 1:27 PM EST) Vit D 25 OH 32.3 30.0 - 150.0 ng/mL 12/24/2023 1:52 AM EST [facility] [employer], [facility] Comment: Preferred: >= 30 ng/mL Insufficient: 21-29 [...] ORDERABLES Final Resul t Performing Organization Address City/[facility] Co de Phone Number [facility]REFERRED [facility] [employer], [address] , [place] [address] * MICROALBUMIN/CREATININE RATIO URINE (12/23/2023 1:27 PM EST) Urine Microalb 12.0 mg/L 12/23/2023 9:50 PM EST [facility] Urine Creatinine 39.7 mg/dL 12/23/2023 9:50 PM EST [facility] Ur Microalb/Creat 30 0 - 30 mg/g 12/23/2023 9:50 PM EST [facility] Urine URINE SPECIMEN COLLECTION / Unknown 12/23/2023 1:27 PM EST 12/23/2023 1:27 PM EST us Julio Silva MD URINE ORDERABLES Final Result Performing Organization Address [facility] de Phone Number [facility] [address] [facility] , [place] [address] [facility] [address] [place] [address] * (ABNORMAL) URINALYSIS (12/23/2023 1:27 PM EST) UA Color Colorless 12/23/2023 8:04 PM EST [facility] UA Appear Clear Clear 12/23/2023 8:04 PM EST [facility] UA Glucose 4+ (>1000mg/dL) (A) Negative mg/dL 12/23/2023 8:04 PM EST [facility] UA Ketones Negative Negative mg/dL 12/23/2023 8:04 PM EST [facility] UA Blood Negative Negative 12/23/2023 8:04 PM EST [facility] UA pH 6.0 5.0 - 8.0 pH 12/23/2023 8:04 PM EST [facility] UA Protein Negative Negative mg/dL 12/23/2023 8:04 PM EST [facility] UA Urobilinogen Normal <=1 mg/dL 8:04 PM EST [facility] UA Bili Negative Negative 12/23/2023 8:04 PM EST [facility] UA Nitrite Negative Negative 12/23/2023 8:04 PM EST [facility] UA Leuk Est Negative Negative 12/23/2023 8:04 PM EST [facility] UA Spec Grav 1.011 1.001 - 1.035 no units 12/23/2023 8:04 PM EST [facility] Comment:Reference range ji d for random specimens only. Urine URINE SPECIMEN COLLECTION, CLEAN CATCH / Unknown 12/23/2023 1:27 PM EST 12/23/2023 1:27 PM EST us Julio Silva MD URINE ORDERABLES Final Result Performing Organization Address [facility] Phone Number [facility] [employer] , [place] [address] * ALANINE AMINOTRANSFERASE (12/23/2023 1:27 PM EST) ALT 24 <=41 U/L 12/23/2023 9:0 3 PM EST [facility] [employer], [facility] Blood VENOUS BLOOD / Unknown Venipuncture / Unknown 12/23/2023 1:27 PM EST 12/23/2023 1:27 PM EST us Julio Silva MD CHEMISTRY ORDERABLES Final Resul t Performing Organization Address [facility] Phone Number [facility]ED [facility] [employer], [address] , [place] [address] * ASPARTATE AMINOTRANSFERASE (12/23/2023 1:27 PM EST) AST 24 <=40 U/L 12/23/2023 9:0 3 PM EST [facility] [employer], [facility] Blood VENOUS BLOOD / Unknown Venipuncture / Unknown 12/23/2023 1:27 PM EST 12/23/2023 1:27 PM EST us Julio Silva MD CHEMISTRY ORDERABLES Final Resul t Performing Organization Address [facility]/ZIP Co de Phone Number [employer] [address] [facility] , [place] [address] * PROTEIN TOTAL-BLOOD (12/23/2023 1:27 PM EST) Pathologist [facility] Total Protein 7.5 6.4 - 8.3 gm/dL 12/23/2023 9:03 PM EST [facility] [employer] Blood VENOUS BLOOD / Unknown Venipuncture / Unknown 12/23/2023 1:27 PM EST 12/23/2023 1:27 PM EST us Julio Silva MD CHEMISTRY ORDERABLES Final Resul t Performing Organization Address [facility] Co de Phone Number [employer] [address] [facility] , [place] [address] * ALKALINE PHOSPHATASE (12/23/2023 1:27 PM EST) Pathologist [facility] Alk Phos 49 40 - 129 U/L 12/23/2023 9:03 PM EST [employer] Blood VENOUS BLOOD / Unknown Venipuncture / Unknown 12/23/2023 1:27 PM EST 12/23/2023 1:27 PM EST us Julio Silva MD CHEMISTRY ORDERABLES Final Resul t Performing Organization Address [facility] de Phone Number [employer] [address] [facility] , [place] [address] * PARATHYROID HORMONE INTACT (12/23/2023 1:27 PM EST) PTH Intact 62.70 15.00 - 65.00 pg/mL 12/24/2023 12:05 AM EST [facility] [employer] Blood VENOUS BLOOD / Unknown Venipuncture / Unknown 12/23/2023 1:27 PM EST 12/23/2023 1:27 PM EST Narrative [facility] [employer] - 12/24/2023 12:05 AM EST Intact PTH [...] can interfere with this immunoassay test. us Julio Silva MD CHEMISTRY ORDERABLES Final Resul t [facility] [employer] [address] [place] [address] , [place] [address] * (ABNORMAL) NT PROBNP (12/23/2023 1:27 PM EST) NT Pro-BNP 688(H) <=229 pg/mL 12/24/2023 1:38 AM EST [facility] [employer] Blood VENOUS BLOOD / Unknown Venipuncture / Unknown 12/23/2023 1:27 PM EST 12/23/2023 1:27 PM EST Narrative [facility] [employer] - 12/24/2023 1:38 AM EST An NT pro-BNP level less than 300 pg/mL in any patient, regardless of age, effectively rules out acute CHF with a 99% negative predictive value. Ingestion of pratik doses of biotin (>5 mg/day) taken within 8 hours of drawing blood sample can interfere with this immunoassay test. us Referring Nonstaff CHEMISTRY ORDERABLES Final Re sult Performing Organization Address [facility] Co de Phone Number [employer] [address] [facility] , [place] [address] * IRON LEVEL (12/23/2023 1:27 PM EST) Iron 119 50 - 170 mcg/dL 12/23/2023 9:03 PM EST [facility] [employer], [employer] Blood VENOUS BLOOD / Unknown Venipuncture / Unknown 12/23/2023 1:27 PM EST 12/23/2023 1:27 PM EST us Referring Nonstaff CHEMISTRY ORDERABLES Final Re sult Performing Organization Address [facility] de Phone Number [employer] [facility] [address] [facility] , [place] [address] * BILIRUBIN TOTAL (12/23/2023 1:27 PM EST) Bili Total 0.4 0.2 - 1.4 mg/dL 12/23/2023 9:03 PM EST [facility] [employer], [employer] Blood VENOUS BLOOD / Unknown Venipuncture / Unknown 12/23/2023 1:27 PM EST 12/23/2023 1:27 PM EST us Julio Silva MD CHEMISTRY ORDERABLES Final Resul t Performing Organization Address [facility] de Phone Number [employer] [address] [facility] , [place] [address] * (ABNORMAL) RENAL FUNCTION PANEL (12/23/2023 1:27 PM EST) Sodium 137 136 - 145 mmol/L 12/23/2023 9:03 PM EST [facility] [employer] [employer] Potassium 4.6 3.5 - 5.0 mmol/L 12/23/2023 9:03 PM EST [facility] [employer] Chloride 98 98 - 107 mmol/L 12/23/2023 9:03 PM EST [facility] Total CO2 27 22 - 29 mmol/L 12/23/2023 9:03 PM EST [facility], [facility] Anion Gap 12 7 - 16 mmol/L 12/23/2023 9:03 PM EST [facility], [facility] Calcium 9.6 8.8 - 10.4 mg/dL 12/23/2023 9:03 PM EST [facility], [facility] Glucose Lvl 136(H) 70 - 99 mg/dL 12/23/2023 9:03 PM EST [facility], [facility] BUN 28(H) 8 - 23 mg/dL 12/23/2023 9:03 PM EST [facility], [facility] Creatinine 1.58(H) 0.67 - 1.30 mg/dL 12/23/2023 9:03 PM EST [facility] Albumin 4.7(H) 3.2 - 4.6 gm/dL 12/23/2023 9:03 PM EST [facility], [facility] Phosphorus 3.7 2.5 - 4.5 mg/dL 12/23/2023 9:03 PM EST [facility], [facility] eGFR (CKD-EPIcr 2020) 46(L) >=60 mL/min/1.7 3 m2 12/23/2023 9:03 PM EST [facility] Comment:Estimated GFR was ca lculated using the CKD-EPIcr (2020) equation refit without race. The equation is recommended by the National Kidney Foundation - [place] [employer] of Nephrology Task Force. Blood VENOUS BLOOD / Unknown Venipuncture / Unknown 12/23/2023 1:27 PM EST 12/23/2023 1:27 PM EST us Julio Silva MD CHEMISTRY ORDERABLES Final Resul t [facility] [address] [facility] , [place] [address] [facility] [address] [place] [address] * (ABNORMAL) POCT GLYCATED HEMOGLOBIN, TOTAL (10/19/2023 9:58 AM EDT) Hemoglobin A1C 7.2(A) 4 - 6 % SEP OFFICE Lot Number SEP OFFICE Expiration Date SEP OFFICE SeriAl # SEP OFFICE 10/19/2023 9:58 AM EDT us Dat Onofre MD POINT OF CARE TEST ORDERABLES Final Result SEP OFFICE * HM DIABETES EYE EXAM (05/20/2023) Left Diabetic Retinopathy Not Present Present/Not Present SEP OFFICE Right Diabetic Retinopathy Not Present Present/Not Present SEP OFFICE us Lakisha Gupta ASSISTANT [employer] MAINTENANCE Final Res ult SEP OFFICE * LIPID PANEL REFLEX (10/27/2022 10:59 AM EDT) Cholesterol 128 <200 mg/dL 10/27/2022 3:09 PM EDT [facility] [employer] Comment: < 200 ?Desirable 200 - 239 ? Borderline High >= 240 ?High Triglyceride 122 <150 mg/dL 10/27/2022 3:09 PM EDT [facility] [employer] Comment: < 150 ? Normal 150 - 199 ?Borderline High 200 - 499 ?High ??>= 500 ? Very High HDL 50 >=40 mg/dL 10/27/2022 3:09 PM EDT [employer] [employer] Comment: ??> 60 ?Optimal 40 - 60 ?Acceptable ?? < 40 ?Low LDL Calculated 56 <100 mg/dL 10/27/2022 3:09 PM EDT [facility]REF[facility]ED [employer], [employer] Non-HDL-C Calculated 78 <=129 mg/dL 10/27/2022 3:09 PM EDT [facility] [employer] [employer] Comment: <130 ?Desirable 130-159 Above Desirable 160-189 Borderline High 190-219 High >= 220 ??Very High Fasting Specimen? Yes None 023 3:09 PM EDT [facility] Blood VENOUS BLOOD / Unknown Venipuncture / Unknown 10/27/2022 10:59 AM EDT 10/27/2022 10:59 AM EDT Fili Sanchez MD CHEMISTRY ORDERABLES Fin al Result [facility] [employer] [address] [facility], [place] [address] [facility] 1 [place] [address] from Last 3 Months or Most Recently Relevant to Health Maintenance Insurance MEDICARE [place] PART A AND B MEDICARE [place] PART A AND B [id number] INS MEDICARE [place] PART A AND B [employer] [facility] SPPNTL INS Care Teams [employer] Leader Relationship Specialty Start Date End Date Aba Espinoza MD [address] [place] [address] [place] [id number] PCP - General Family Medicine 07/27/16 Fili Sanchez MD [address] [facility] [address] [place] [id number] Internal Medicine-Endocrinology, Diabetes & Metabolism 04/11/14
--- OUTSIDE RECORDS SUMMARY | 2024-01-18 14:51 | XMS_ITS | Encounter Summary ---
Author Organization [place] [address] Care Team Providers Care Director Of Casino Marketing Name Role Phone Fili Sanchez MD Unavailable [phone] Aba Espinoza MD Primary Care Provider [phone] Reason for Visit * Reason Comments Diabetes * Consultation (Routine) - Pending Review Specialty Diagnoses / Procedures Referred By Kadie casillas Referred To Contact Internal Medicine-Endocrinology, Diabetes & Metabolism / Diabetes Services Diagnoses DM ty2 FU 3 mo per 05/31 jr Procedures DM FOLLOW UP Aba Espinoza MD [address] [facility] [address] [place] [address] Phone: tel: fax: Dat Onofre MD [address] [place] [address] Phone: tel: fax: Referral ID Status Reason Start Date Expiration Date V isits Requested Visits Authorized [id number] Pending Review 10/19/2023 10/18/2024 99 [phone] Encounter Details Date Type Department Care Team (Late st Contact Info) Description 10/19/2023 10:00 AM EDT [facility] [address] [place], [place] [id number] Dat Onofre MD [address] [place] [address] Type 2 diabetes mellitus with microalbuminuria, with long-term current use of insulin (HCC) (Primary Dx); Type 2 diabetes mellitus with hyperglycemia, with long-term current use of insulin (HCC); Hypertension associated with diabetes (HCC); Hyperlipidemia associated with type 2 diabetes mellitus (HCC) Social History Tobacco Use Types Packs/Day Years [...] Pulse 74 10/19/2023 9:52 AM EDT Temperature - - Respiratory Rate 16 10/19/2023 9:52 AM EDT Oxygen Saturation - - Inhaled Oxygen Concentration - - Weight 121 kg (266 lb 12.8 oz) 10/19/2023 9:52 A M EDT Height 185.4 cm (6' 1 ) 10/19/2023 9:52 AM EDT Body Mass Index 35.2 10/19/2023 9:52 AM EDT documented in this encounter Progress Notes * Rosalee Bowens MA - 10/19/2023 10:00 AM EDT Pt forgot Rianna reader. Pharmacy verified. Refills not needed. A1c resulted. Medication reconciliation complete. * Dat Onofre MD - 10/19/2023 10:00 AM EDT Subjective Subjective: Patient ID: Dane Ray is a 72 y.o. male. Chief Complaint Patient presents with Diabetes HPI: Dane returns for follow up of type 2 diabetes. He reports some fluctuations in blood sugar with some hypoglycemia. He has chronic cough that is non productive and wonders if it is his medications. Itstarted a few months ago. His foot healed up after removal of embedded splinter. He also saw motor racer with good check up. PMSFH: Past Medical History: Diagnosis Date Diabetes mellitus (HCC) High blood pressure Hyperlipidemia Multiple endocrine neoplasia (HCC) Uncontrolled diabetes mellitus with stage 3 chronic kidney disease, without long-term current use of insulin 02/22/2019 Patients past medical, family and social histories were reviewed and updated. There were no changesexcept as noted. Review of Systems Constitutional: Negative for activity change, appetite change, chills, diaphoresis, fatigue and fever. HENT: Positive for congestion, rhinorrhea and sinus pressure. Negative for dental problem, drooling, ear discharge, ear pain, facial swelling, hearing loss, mouth sores, nosebleeds, postnasal drip, sore throat, tinnitus, trouble swallowing and voice change. Eyes: Positive for photophobia and discharge. Negative for pain, redness, itching and visual disturbance. Respiratory: Negative for apnea, cough, choking, chest tightness, shortness of breath and wheezing. Cardiovascular: Positive for leg swelling. Negative for chest pain and palpitations. Gastrointestinal: Negative for abdominal distention, abdominal pain, anal bleeding, constipation, diarrhea, nausea, rectal pain and vomiting. Endocrine: Negative for cold intolerance, heat intolerance, polydipsia, polyphagia and polyuria. Genitourinary: Positive for flank pain and urgency. Negative for decreased urine volume, dysuria, frequency, genital sores and hematuria. Musculoskeletal: Positive for back pain, gait problem, myalgias, neck pain and neck stiffness. Skin: Negative for color change, pallor, rash and wound. Allergic/Immunologic: Negative for environmental allergies, food allergies and immunocompromised state. Neurological: Positive for dizziness, weakness, light-headedness and numbness. Negative for tremors, seizures, facial asymmetry, speech difficulty and headaches. Hematological: Does not bruise/bleed easily. Psychiatric/Behavioral: Negative for agitation, behavioral problems, confusion, decreased concentration, dysphoric mood, hallucinations, self-injury, sleep disturbance and suicidal ideas. The patientis not nervous/anxious and is not hyperactive. Objective Outpatient Medications Marked as Taking for the 10/19/23 encounter (Office Visit) with Evelio Onofre MD Medication Sig Dispense Refill allopurinoL (ZYLOPRIM) 100 mg Oral Tablet 100 mg daily. TAKES IN EVENING aspirin (ASPIRIN) 81 mg Oral Tablet, Chewable Take 1 Tab by mouth daily. 30 Tab 0 bempedoic acid 180 mg Oral Tablet Take 180 mg by mouth daily. carvediloL (COREG) 25 mg Oral Tablet Take 25 mg by mouth 2 times daily. cyanocobalamin 1,000 mcg Oral Tablet Take 1 Tablet by mouth daily. Take one tab daily empagliflozin (JARDIANCE) 25 mg Oral Tablet Take 1 Tablet by mouth daily. 30 Tablet 5 ergocalciferol (DRISDOL) 1,250 mcg (50,000 unit) Oral Capsule Take 1 Capsule by mouth once a week. 12 Capsule 3 escitalopram oxalate (LEXAPRO) 20 mg Oral Tablet Take by mouth daily. flash glucose sensor (FREESTYLE RIANNA 2 SENSOR) [facility] Kit 1 Each by [facility].(Non- Drug; Combo Route) route every 14 days. 6 Kit 1 FREESTYLE RIANNA 2 READER [facility] Use as directed to test BS. DX code: E11.21 1 Each 0 glipiZIDE (GLUCOTROL XL) 5 mg Oral Tablet Extended Rel 24 hr Take 3 tabs with first meal of the pse612 Tablet 2 Insulin [place], Disposable, (BD PATITO 2ND GEN PEN NEEDLE) 32 gauge x 5/32 [facility] Needle USE ONCE DAILY WITH INSULIN 90 Each 1 magnesium oxide 400 mg magnesium Oral Capsule Take by mouth. Take 2 times daily nitroGLYCERIN (NITROLINGUAL) 400 mcg/spray TL [place], Non-Aerosol Place 1 [place] under the tongue every 5 minutes as needed for Chest pain. rOPINIRole (REQUIP) 0.5 mg Oral Tablet Take 0.5 mg by mouth. Takes once daily at night rosuvastatin (CRESTOR) 20 mg Oral Tablet Take 20 mg by mouth daily. sacubitriL-valsartan (ENTRESTO) 24-26 mg Oral Tablet Take 1 Tab by mouth 2 times daily. semaglutide (OZEMPIC) 1 mg/dose (4 mg/3 mL) SubQ Pen Injector Subcutaneous (Inject under the skin) 1 mg once a week. 3 mL 11 spironolactone (ALDACTONE) 25 mg Oral Tablet Take 25 mg by mouth daily. torsemide (DEMADEX) 10 mg Oral Tablet 10 mg. Takes one tab MWF Objective: DATA REVIEW: LABS Recent and historical labs reviewed in chart, results discussed with patient. DIABETES CGM Lab Results Component Value Date HGBA1C 7.2 (A) 10/19/2023 HGBA1C 8.0 (H) 05/30/2023 HGBA1C 9.2 (H) 02/23/2023 RENAL Lab Results Component Value Date CREATININE 1.49 (H) 10/11/2023 Lab Results Component Value Date MICROALBCR 10/11/2023 Comment: Because the albumin level is below the level of detection in this urine specimen, the laboratory isunable to calculate a reliable albumin/creatinine ratio. Microalbuminuria is unlikely if the urine albumin concentration is less than 20- 30 mg/L in a randomspecimen. LIPIDS No components found for: LDL Lab Results Component Value Date LDLCALC 56 10/27/2022 Lab Results Component Value Date LDLDIRECT 61 06/27/2020 Lab Results Component Value Date HDL 50 10/27/2022 Lab Results Component Value Date TRIG 122 10/27/2022 Lab Results Component Value Date CHOLESTEROL 128 10/27/2022 OTHER Lab Results Component Value Date TSH 2.750 02/23/2023 FREET4 1.27 04/16/2014 Lab Results Component Value Date FSHD81ZF 41.8 10/11/2023 Lab Results Component Value Date [id number] 867 05/30/2023 Vitals: 10/19/23 0952 BP: 116/60 Pulse: 74 Resp: 16 Weight: 266 lb 12.8 oz (121 kg) Height: 6' 1 (1.854 m) Body mass index is 35.2 kg/m??. Physical Exam Vitals and nursing note reviewed. Assessment and Plan: Diagnoses and all orders for this visit: Type 2 diabetes mellitus with microalbuminuria, with long-term current use of insulin (HCC) (Chronic) - MICROALBUMIN/CREATININE RATIO URINE; Future; Expected date: 12/28/2023 (Before Next Appt) - HEMOGLOBIN A1C; Future; Expected date: 12/28/2023 (Before Next Appt) Type 2 diabetes mellitus with hyperglycemia, with long-term current use of insulin (HCC) (Chronic) - POCT GLYCATED HEMOGLOBIN, TOTAL Hypertension associated with diabetes (HCC) (Chronic) - COMPREHENSIVE METABOLIC PANEL; Future; Expected date: 12/28/2023 (Before Next Appt) Hyperlipidemia associated with type 2 diabetes mellitus (HCC) (Chronic) - LIPID PANEL REFLEX; Future; Expected date: 12/28/2023 (Before Next Appt) Assessment and Recommendations: 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 His HbA1c is down to 7.2%. He is having some symptomatic hypoglycemia with activity and fasting blood sugar is above goal. I recommend decreasing glipizide to 5 mg in the morning and increasing Basaglar to 24 units nightly. Cellulitis or right foot has resolved with treatment. He has follow up with soapstoner. Hypertension controlled. Hyperlipidemia treated with rosuvastatin. Managed by Dr. Quan. Return to office: Return in about 3 months (around 01/18/2024) for Type 2 diabetes. documented in this encounter Miscellaneous Notes * Patient Instructions - Dat Onofre MD - 10/19/2023 10:00 AM EDT Decrease Glipizide to one 5 mg tablet daily. Increase Basaglar to 24 units every evening Continue all other medications as before. documented in this encounter Plan of Treatment Upcoming Encounters Date Type Department Care Team (Late st Contact Info) Description 04/26/2024 9:00 AM EDT Office Visit [facility] Nephrology [place] [address] [place] [address] Julio Silva MD [address] [place] [address] Scheduled Orders Name Type Priority Associated Diagnoses Orde r Schedule MICROALBUMIN/CREATININE RATIO URINE Lab Routine Type 2 diabetes mellitus with microalbuminuria, with long-term current use of insulin (HCC) Expected: 12/28/2023 (Approximate), Expires: 10/18/2024 HEMOGLOBIN A1C Lab Routine Type 2 diabetes mellitus with microalbuminuria, with long-term current use of insulin (HCC) Expected: 12/28/2023 (Approximate), Expires: 10/18/2024 COMPREHENSIVE METABOLIC PANEL Lab Routine Hypertension associated with diabetes (HCC) Expected: 12/28/2023 (Approximate), Expires: 10/18/2024 LIPID PANEL REFLEX Lab Routine Hyperlipidemia associated with type 2 diabetes mellitus (HCC) Expected: 12/28/2023 (Approximate), Expires: 10/18/2024 documented as of this encounter Procedures Procedure Name Priority Date/Time Associated Diagnosis Comments POCT GLYCATED HEMOGLOBIN, TOTAL Routine 10/19/2023 9:58 AM EDT Type 2 diabetes mellitus with hyperglycemia, with long-term current use of insulin ([facility]) documented in this encounter Results * (ABNORMAL) POCT GLYCATED HEMOGLOBIN, TOTAL (10/19/2023 9:58 AM EDT) Hemoglobin A1C 7.2(A) 4 - 6 % SEP OFFICE Lot Number SEP OFFICE Expiration Date SEP OFFICE SeriAl # SEP OFFICE 10/19/2023 9:58 AM EDT us Dat Onofre MD POINT OF CARE TEST ORDERABLES Final Result SEP OFFICE documented in this encounter Visit Diagnoses Diagnosis Type 2 diabetes mellitus with microalbuminuria, with long-term current use of insulin (HCC)- Primary Type 2 diabetes mellitus with hyperglycemia, with long-term current use of insulin ([facility]) Hypertension associated with diabetes ([facility]) Type II or unspecified type diabetes mellitus with other specified manifestations, not stated as uncontrolled Hyperlipidemia associated with type 2 diabetes mellitus ([facility]) documented in this encounter Discontinued Medications Medication Sig Discontinue Reason Start Date End Da te carvediloL (COREG) 12.5 mg Oral Tablet 12.5 mg 2 times daily. Take an additonal 6.25 every evening Patient Reported not taking medication 03/26/2022 10/19/2023 flash glucose sensor (FREESTYLE RIANNA 14 DAY SENSOR) [facility] Kit 1 Each by Mis.(Non-Drug; Combo Route) route every 14 days. Patient Reported not taking medication 12/16/2021 10/19/2023 documented as of this encounter Additional Health Concerns Assessment Noted Time A fall risk assessment has been complete d for the patient 10/19/2023 9:50 AM EDT documented as of this encounter Care Teams Director Of Casino Marketing Relationship Specialty Start Date End Date Aba Espinoza MD [address] [place] [id number] PCP - General Family Medicine 07/27/16 Fili Sanchez MD [address] [address] Internal Medicine-Endocrinology, Diabetes & Metabolism 04/11/14 documented as of this encounter
--- OUTSIDE RECORDS SUMMARY | 2024-01-18 14:51 | XMS_ITS | Encounter Summary ---
Author Organization Healthcare Address [facility] [place] [address] Care Team Providers Care Steeler Name Role Phone Heriberto Quan MD Primary Care Provider [phone] Encounter Details Date Type Department Care Team (Latest Contact Info) Description 09/14/2023 Travel Social History Tobacco Use Types Packs/Day [...] on filedocumented in this encounter Care Teams Steeler Relationship Specialty Start Date End Date Heriberto Quan MD [address] [place] [address] PCP - General 08/24/23 documented as of this encounter
--- OUTSIDE RECORDS SUMMARY | 2024-01-18 14:51 | XMS_ITS | Encounter Summary ---
Author Organization Healthcare Address [address] [place] [address] Care Team Providers Care Registered Medical Transcriptionist Name Role Phone Aba Espinoza MD Primary Care Provider [phone] Heriberto Quan MD Primary Care Provider [phone] Encounter Details Date Type Department Care Team (Late st Contact Info) Description 08/25/2016 [facility] Encounter HISTORICAL OTTR [address] [place] [address] ProviderRocael MD [address] [place] [id number] Social History Tobacco Use Types Packs/Day Years Used Date Smoking Tobacco: Never Assessed Sex and Gender Information Value Date Recorded Sex Assigned at Not on file Legal Sex Male 6:27 PM EDT Gender Identity Not on file Sexual Orientation Not on file documented as of this encounter Miscellaneous Notes * Progress Notes - ProviderRocael MD - 08/25/2016 11:59 AM EDT Romana from [facility] called for pt phone number. I called back, had to leave message. Provided number and also advised that pt cancelled his appt/eval and we closed out the referral. * Progress Notes - Gela Whaley - 08/09/2016 11:03 AM EDT bed request for 7/3 cancelled in [employer] * Progress Notes - Gela Whaley - 08/09/2016 10:56 AM EDT pt called and stated he needs to cancel eval on Tuesday and he has decided to consult another doctor, I tried to get more info but the pt did not elaborate, I asked that he keep my contact info in case things don't work out and he stated he will and he expressed his gratitude for my assistance, MD Colin/ Julia Noyola/MD Bird notified referral closed * Progress Notes - Rocael Alva MD - 08/05/2016 2:17 PM EDT Added FC letter to [employer]. * Progress Notes - Rocael Alva MD - 08/04/2016 1:20 PM EDT Per Romana at [facility], case effective date is 08/03. To list, submit clinical to be reviewed. [email or web address] network will be used. * Progress Notes - Gela Whaley - 08/03/2016 4:50 PM EDT per Cynthia Million ok to order eval testing spoke with pt and scheduled for direct admit on 08/16 at 8:00 Pav A registration, pt had C/LHC 07/05/16-MD Colin aware, provided pt with my contact info and instructed him to call me if he has any questions, requires ER visit due to HF or needs to reschedule, pt verbalized understanding pt stated last colonoscopy performed 10yrs ago in [place], pt denies family/medical hx of cancer bed requested in [employer] * Progress Notes - Rocael Alva MD - 08/02/2016 1:47 PM EDT Faxed clinical and home phone # to Romana, per her request. * Progress Notes - Rocael Alva MD - 08/02/2016 1:45 PM EDT Pt is financially clear to start the evaluation, no approval needed, per Romana Olson (TONNY CM). Iwill check the drug plan and write the FC letter. * Progress Notes - Rocael Alva MD - 07/29/2016 2:48 PM EDT Pt has UMR. Called txp dept, left message. Waiting for call back. * Progress Notes - Julia Noyola - 07/29/2016 11:52 AM EDT New referral entered. documented in this encounter Plan of Treatment Not on file documented as of this encounter Visit Diagnoses Not on filedocumented in this encounter Care Teams Registered Medical Transcriptionist Relationship Specialty Start Date End Date Aba Espinoza MD [address] [facility] [address] [place] [address] PCP - General 06/27/20 08/23/23 Heriberto Quan MD [address] [facility] [address] [facility] [place] [address] PCP - General 08/24/23 documented as of this encounter
--- OUTSIDE RECORDS SUMMARY | 2024-01-18 14:51 | XMS_ITS | Encounter Summary ---
Author Organization [place] [address] Care Team Providers Care Dental Mechanic Name Role Phone Fili Sanchez MD Unavailable [phone] Aba Espinoza MD Primary Care Provider [phone] Reason for Visit * Reason Comments Medication Refill Encounter Details Date Type Department Care Team (Late st Contact Info) Description 12/15/2023 Refill [facility] Physicians [facility] Diabetes [place] [address] [facility] [address] [place] [phone] Lakisha Gupta APRN [address] [facility] [address] [place] [phone] Medication Refill Social History Tobacco Use [...] Refills Last Filled Start Date End Date glipiZIDE (GLUCOTROL XL) 5 mg Oral Tablet Extended Rel 24 hr TAKE 3 TABLETS WITH FIRST MEAL OF THE DAY 300 Tablet 12/19/2023 documented in this encounter Miscellaneous Notes * Telephone Encounter - Betty Grimes CPhT - 12/19/2023 9:22 AM EST Glipizide 5mg - Future Visit: 01-18-24 Last Assessed Visit: 10-19-23 Follow-Up Date: 01-18-24 All protocols passed. Refills approved and sent to requesting pharmacy. Routed to [facility] if applicable. documented in this encounter Plan of Treatment Upcoming Encounters Date Type Department Care Team (Late st Contact Info) Description 04/26/2024 9:00 AM EDT Office Visit [facility] Nephrology [place] [address] [facility] [address] [place] [address] Julio Silva MD [address] [facility] [address] [place] [address] documented as of this encounter Visit Diagnoses Not on filedocumented in this encounter Discontinued Medications Medication Sig Discontinue Reason Start Date End Da te glipiZIDE (GLUCOTROL XL) 5 mg Oral Tablet Extended Rel 24 hr Take 3 tabs with first meal of the day 02/25/2023 12/19/2023 documented as of this encounter Additional Health Concerns Assessment Noted Time A fall risk assessment has been complete d for the patient 10/19/2023 9:50 AM EDT documented as of this encounter Care Teams Dental Mechanic Relationship Specialty Start Date End Date Aba Espinoza MD [address] [place] [phone] PCP - General Family Medicine 07/27/16 Fili Sanchez MD [address] [id number] Internal Medicine-Endocrinology, Diabetes & Metabolism 04/11/14 documented as of this encounter
--- OUTSIDE RECORDS SUMMARY | 2024-01-18 14:51 | XMS_ITS | Clinical Summary ---
Author Organization [facility] Address [address] [place] [phone] Phone Care Team Providers Care Geospatial Information Scientist Name Role Phone Fili Sanchez MD Unavailable [phone] Aba Espinoza MD Primary Care Provider [phone] Allergies Active Allergy Reactions Criticality Noted Date [...] daily. Active nitroGLYCERIN (NITROLINGUAL) 400 mcg/spray TL [place], Non-Aerosol Place 1 [place] under the tongue every 5 minutes as needed for Chest pain. Active allopurinoL (ZYLOPRIM) 100 mg Oral Tablet 100 mg daily. TAKES IN EVENING 06/22/19 20 Active Blood Sugar Diagnostic (ACCU-CHEK GUIDE TEST STRIPS) [facility] Strip Use to test blood sugars daily. [...] flash glucose sensor (FREESTYLE THIEN 2 SENSOR) [facility] Kit 1 Each by [facility]Non-Drug; Combo Route) route every 14 days. 6 Kit 1 12/19/19 22 Active FREESTYLE THIEN 2 READER [facility] Use as directed to test BS. [...] ia, with long-term current use of insulin (HCC) [...] 3 mL 11 06/01/19 24 Active Insulin [place], Disposable, (BD PATITO 2ND GEN PEN NEEDLE) 32 gauge x 5/32 [facility] Needle USE ONCE DAILY WITH INSULIN 90 [...] insulin 04/11/2014 02/22/2019 HTN (hypertension) 04/11/2014 6 Encounters Date Type Department Care Team Description 01/18/2024 Telephone [facility] [address] [facility] [address] [place] [phone] Dat Onofre MD Cancellation 01/14/2024 Travel 01/13/2024 Refill [facility] [address] [facility] [address] [place] [address] Lakisha Gupta APRN Medication Refill 12/23/2023 1:23 PM EST - 12/23/2023 11:59 PM EST Hospital Encounter [facility] [address] [place] [address] Chronic systolic heart failure (HCC) (Primary Dx); Stage 3a chronic kidney disease (HCC); HTN (hypertension), benign; Chronic kidney disease-mineral and bone disorder Discharge Disposition: Home or Self Care 12/15/2023 Refill [facility] [address] [place] [phone] Lakisha Gupta APRN Medication Refill 10/31/2023 Refill [facility] [address] [place] [phone] Lakisha Gupta APRN Medication Refill 10/19/2023 10:00 AM EDT Office Visit [facility] [address] [place] [phone] Dat Onofre MD Type 2 diabetes mellitus with microalbuminuria, with long-term current use of insulin (HCC) (Primary Dx); Type 2 diabetes mellitus with hyperglycemia, with long-term current use of insulin (HCC); Hypertension associated with diabetes (HCC); Hyperlipidemia associated with type 2 diabetes mellitus (HCC) from Last 3 Months Immunizations Name Administration Dates Next Due Influenza Nasal, Unspecified Formulation 019 Tdap 02/06/2020 Varicella 02/06/2020 Surgical History Surgery Date Site/Laterality Comments PACEMAKER PLACEMENT COLONOSCOPY BYPASS GRAFT 11/14/2021 - 12/14/2021 Medical History Medical History Date Comments Diabetes mellitus (HCC) High blood pressure Hyperlipidemia Uncontrolled diabetes mellit us with stage 3 chronic kidney disease, without long-term current use of insulin 02/22/2019 Multiple endocrine neoplasia (HCC) Family History Medical History Relation Name Comments Diabetes Father Victorino pham Heart Attack Father Victorino pham Heart Attack Mother Relation Name Status Comments Father Victorino pham Mother Social History Tobacco Use Types Packs/Day [...] on file Sexual Orientation Not on file Obstetrics History Last Filed Vital Signs Vital Sign Reading [...] Description 04/26/2024 9:00 AM EDT Office Visit [facility] Nephrology [place] [address] [place] [address] Julio Silva MD [address] [place] [address] Health Maintenance Due Date Last Done Comments Wellness Exam Medicare 10/21/1952 Hepatitis C Screening 10/21/1969 Cologuard 10/21/1996 Colon Cancer Screening 10/21/1996 Colonoscopy 10/21/1996 FIT 10/21/1996 Sigmoidoscopy 10/21/1996 Virtual Colonography 10/21/1996 Low Dose Lung Cancer Screening 10/21/2001 RSV or 60+ (1 - Ris k 60-74 years 1-dose series) 2011 AAA Screening 10/21/2016 COVID-19 Vaccine (4 - 2023-2 5 season) 2023 12/30/2020, 03/18/2020, 02/20/2020 Lipids 10/28/2023 10/27/2022, 03/17, 11/26/2021, Additional history exists Hemoglobin A1c 04/17/2024 10/19/2023, 05/15, 02/23/2023, Additional history exists Microalbuminuria 12/22/2024 12/23/2023, , 10/27/2022, Additional history exists Diabetic Eye Exam 05/19/2025 05/20/2023, , 04/15/2020, Additional history exists DTaP/TDaP/Td (2 - Td or Tdap) 02/05/2030 02/06/2020 Zoster Completed 04/15/2020, 02/07/2020 Pneumococcal Vaccine 65+ Completed 022, 01/24/2020, 12/07/2016 Influenza Vaccine Completed 10/13/2023, , 12/31/2020, Additional history exists Hepatitis B Vaccine Aged Out No longe r eligible based on patient's age to complete this topic Procedures Procedure Name Priority Date/Time Associated Diagnosis Comments ALANINE AMINOTRANSFERASE Routine 024 1:27 PM EST Stage 3a chronic kidney [...] mg/dL 12/23/2023 9:03 PM EST [facility] Blood VENOUS BLOOD / Unknown Venipuncture / Unknown 12/23/2023 1:27 PM EST 12/23/2023 1:27 PM EST us Julio Silva MD CHEMISTRY ORDERABLES Final Resul t Performing Organization Address City/[facility]/ZIP Co de Phone Number [facility]REFERRED [facility] [address] [facility] , [place] [address] * PROTEIN/CREATININE RATIO URINE (12/23/2023 1:27 PM EST) Urine Protein <6.0 mg/dL 12/23/2023 9:50 PM EST [facility] Urine Creatinine 39.7 mg/dL 12/23/2023 9:50 PM EST [facility] Ur Protein/Creat <0.15 mg/mg 12/23/2023 9:50 PM EST [facility] Urine URINE SPECIMEN COLLECTION / Unknown 12/23/2023 1:27 PM EST 12/23/2023 1:27 PM EST us Julio Silva MD URINE ORDERABLES Final Result Performing Organization Address [facility] de Phone Number [facility] [address] [facility] , [place] [address] [facility] [address] [place], [place] [id number] * (ABNORMAL) CBC (12/23/2023 1:27 PM EST) WBC 12.0(H) 3.7 - 10.3 x10(3)/mcL 12/23/2023 8:39 PM EST [facility] RBC 3.99(L) 4.60 - 6.10 x10(6)/mcL 12/23/2023 8:39 PM EST [facility] Hgb 13.8 13.7 - 17.5 g/dL 12/23/2023 8:39 PM EST [facility] Hct 41.4 40.0 - 51.0 % 12/23/2023 8:39 PM EST [facility] MCV 103.8(H) 80.0 - 100.0 fL 12/23/2023 8:39 PM EST [facility] MCH 34.6(H) 26.0 - 34.0 pg 12/23/2023 8:39 PM EST [facility] MCHC 33.3 30.7 - 35.5 g/dL 12/23/2023 8:39 PM EST [facility] RDW 12.7 <=14.9 % 12/23/2023 8:39 PM EST [facility] Platelet 165 155 - 369 x10(3)/mcL 12/23/2023 8:39 PM EST [facility] MPV 13.4(H) 8.8 - 12.5 fL 12/23/2023 8:39 PM EST [facility] Blood VENOUS BLOOD / Unknown Venipuncture / Unknown 12/23/2023 1:27 PM EST 12/23/2023 1:27 PM EST us Referring Nonstaff HEMATOLOGY ORDERABLES Final R esult [facility] [address] [facility] , [address] [place] [id number] * VITAMIN D 25 HYDROXY (12/23/2023 1:27 PM EST) Vit D 25 OH 32.3 30.0 - 150.0 ng/mL 12/24/2023 1:52 AM EST [facility] Comment: Preferred: >= 30 ng/mL Insufficient: [...] ORDERABLES Final Resul t Performing Organization Address City/[facility] Co de Phone Number [facility], [address] , [place] [address] * MICROALBUMIN/CREATININE RATIO URINE (12/23/2023 1:27 PM EST) Urine Microalb 12.0 mg/L 12/23/2023 9:50 PM EST [facility] Urine Creatinine 39.7 mg/dL 12/23/2023 9:50 PM EST [facility] Ur Microalb/Creat 30 0 - 30 mg/g 12/23/2023 9:50 PM EST [facility] Urine URINE SPECIMEN COLLECTION / Unknown 12/23/2023 1:27 PM EST 12/23/2023 1:27 PM EST us Julio Silva MD URINE ORDERABLES Final Result Performing Organization Address [facility] de Phone Number [facility] [address] [facility] , [place] [address] [facility] [address] [place] [address] * (ABNORMAL) URINALYSIS (12/23/2023 1:27 PM EST) UA Color Colorless 12/23/2023 8:04 PM EST [facility] UA Appear Clear Clear 12/23/2023 8:04 PM EST [facility] UA Glucose 4+ (>1000mg/dL) (A) Negative mg/dL 12/23/2023 8:04 PM EST [facility] UA Ketones Negative Negative mg/dL 12/23/2023 8:04 PM EST [facility] UA Blood Negative Negative 12/23/2023 8:04 PM EST [facility] UA pH 6.0 5.0 - 8.0 pH 12/23/2023 8:04 PM EST [facility] UA Protein Negative Negative mg/dL 12/23/2023 8:04 PM EST [facility] UA Urobilinogen Normal <=1 mg/dL 8:04 PM EST [facility] UA Bili Negative Negative 12/23/2023 8:04 PM EST [facility] UA Nitrite Negative Negative 12/23/2023 8:04 PM EST [facility] UA Leuk Est Negative Negative 12/23/2023 8:04 PM EST [facility] UA Spec Grav 1.011 1.001 - 1.035 no units 12/23/2023 8:04 PM EST [facility] Comment:Reference range ji d for random specimens only. Urine URINE SPECIMEN COLLECTION, CLEAN CATCH / Unknown 12/23/2023 1:27 PM EST 12/23/2023 1:27 PM EST us Julio Silva MD URINE ORDERABLES Final Result Performing Organization Address [facility] Phone Number [facility] , [place] [address] * ALANINE AMINOTRANSFERASE (12/23/2023 1:27 PM EST) ALT 24 <=41 U/L 12/23/2023 9:0 3 PM EST [facility] Blood VENOUS BLOOD / Unknown Venipuncture / Unknown 12/23/2023 1:27 PM EST 12/23/2023 1:27 PM EST us Julio Silva MD CHEMISTRY ORDERABLES Final Resul t Performing Organization Address [facility] Phone Number [facility]ERRED [facility], [address] , [place] [address] * ASPARTATE AMINOTRANSFERASE (12/23/2023 1:27 PM EST) AST 24 <=40 U/L 12/23/2023 9:0 3 PM EST [facility] Blood VENOUS BLOOD / Unknown Venipuncture / Unknown 12/23/2023 1:27 PM EST 12/23/2023 1:27 PM EST us Julio Silva MD CHEMISTRY ORDERABLES Final Resul t Performing Organization Address [facility]/ZIP Co de Phone Number [facility] [address] [facility] , [place] [address] * PROTEIN TOTAL-BLOOD (12/23/2023 1:27 PM EST) Pathologist [facility] Total Protein 7.5 6.4 - 8.3 gm/dL 12/23/2023 9:03 PM EST [facility] Blood VENOUS BLOOD / Unknown Venipuncture / Unknown 12/23/2023 1:27 PM EST 12/23/2023 1:27 PM EST us Julio Silva MD CHEMISTRY ORDERABLES Final Resul t Performing Organization Address [facility] Co de Phone Number [facility] [address] [facility] , [place] [address] * ALKALINE PHOSPHATASE (12/23/2023 1:27 PM EST) Pathologist [facility] Alk Phos 49 40 - 129 U/L 12/23/2023 9:03 PM EST [facility] Blood VENOUS BLOOD / Unknown Venipuncture / Unknown 12/23/2023 1:27 PM EST 12/23/2023 1:27 PM EST us Julio Silva MD CHEMISTRY ORDERABLES Final Resul t Performing Organization Address [facility] de Phone Number [facility] [address] [facility] , [place] [address] * PARATHYROID HORMONE INTACT (12/23/2023 1:27 PM EST) PTH Intact 62.70 15.00 - 65.00 pg/mL 12/24/2023 12:05 AM EST [facility] Blood VENOUS BLOOD / Unknown Venipuncture / Unknown 12/23/2023 1:27 PM EST 12/23/2023 1:27 PM EST Narrative [facility] - 12/24/2023 12:05 AM EST Intact PTH [...] MD CHEMISTRY ORDERABLES Final Resul t [facility] [address] [place] [address] , [place] [address] * (ABNORMAL) NT PROBNP (12/23/2023 1:27 PM EST) NT Pro-BNP 688(H) <=229 pg/mL 12/24/2023 1:38 AM EST [facility] Blood VENOUS BLOOD / Unknown Venipuncture / Unknown 12/23/2023 1:27 PM EST 12/23/2023 1:27 PM EST Narrative [facility] - 12/24/2023 1:38 AM EST An NT pro-BNP level less than 300 pg/mL in any patient, regardless of age, effectively rules out acute CHF with a 99% negative predictive value. Ingestion of pratik doses of biotin (>5 mg/day) taken within 8 hours of drawing blood sample can interfere with this immunoassay test. us Referring Nonstaff CHEMISTRY ORDERABLES Final Re sult Performing Organization Address [facility] Co de Phone Number [facility] [address] [facility] , [place] [address] * IRON LEVEL (12/23/2023 1:27 PM EST) Iron 119 50 - 170 mcg/dL 12/23/2023 9:03 PM EST [facility] Blood VENOUS BLOOD / Unknown Venipuncture / Unknown 12/23/2023 1:27 PM EST 12/23/2023 1:27 PM EST us Referring Nonstaff CHEMISTRY ORDERABLES Final Re sult Performing Organization Address [facility] de Phone Number [employer] [facility] [address] [facility] , [place] [address] * BILIRUBIN TOTAL (12/23/2023 1:27 PM EST) Bili Total 0.4 0.2 - 1.4 mg/dL 12/23/2023 9:03 PM EST [facility] Blood VENOUS BLOOD / Unknown Venipuncture / Unknown 12/23/2023 1:27 PM EST 12/23/2023 1:27 PM EST us Julio Silva MD CHEMISTRY ORDERABLES Final Resul t Performing Organization Address [facility] de Phone Number [facility] [address] [facility] , [place] [address] * (ABNORMAL) RENAL FUNCTION PANEL (12/23/2023 1:27 PM EST) Sodium 137 136 - 145 mmol/L 12/23/2023 9:03 PM EST [facility] Potassium 4.6 3.5 - 5.0 mmol/L 12/23/2023 9:03 PM EST [facility] Chloride 98 98 - 107 mmol/L 12/23/2023 9:03 PM EST [facility] Total CO2 27 22 - 29 mmol/L 12/23/2023 9:03 PM EST [facility], [facility] Anion Gap 12 7 - 16 mmol/L 12/23/2023 9:03 PM EST [facility], [facility] Calcium 9.6 8.8 - 10.4 mg/dL 12/23/2023 9:03 PM EST [facility], [facility] Glucose Lvl 136(H) 70 - 99 mg/dL 12/23/2023 9:03 PM EST [facility], [facility] BUN 28(H) 8 - 23 mg/dL 12/23/2023 9:03 PM EST [facility], [facility] Creatinine 1.58(H) 0.67 - 1.30 mg/dL 12/23/2023 9:03 PM EST [facility], [facility] Albumin 4.7(H) 3.2 - 4.6 gm/dL 12/23/2023 9:03 PM EST [facility] Phosphorus 3.7 2.5 - 4.5 mg/dL 12/23/2023 9:03 PM EST [facility], [facility] eGFR (CKD-EPIcr 2020) 46(L) >=60 mL/min/1.7 3 m2 12/23/2023 9:03 PM EST [facility] Comment:Estimated GFR was ca lculated using the CKD-EPIcr (2020) equation refit without race. The equation is recommended by the National Kidney [employer] - [place] [employer] of Nephrology Task Force. Blood VENOUS BLOOD / Unknown Venipuncture / Unknown 12/23/2023 1:27 PM EST 12/23/2023 1:27 PM EST us Julio Silva MD CHEMISTRY ORDERABLES Final Resul t [facility] [address] [facility] , [place] [address] [facility] 1 [place] [address] * (ABNORMAL) POCT GLYCATED HEMOGLOBIN, [...] Present/Not Present SEP OFFICE us Lakisha Gupta PRODUCTION RECORDER HEALTH MAINTENANCE Final Res ult SEP OFFICE * LIPID PANEL REFLEX (10/27/2022 10:59 AM EDT) Cholesterol 128 <200 mg/dL 10/27/2022 3:09 PM EDT [facility] Comment: < 200 ?Desirable 200 - 239 ? Borderline High >= 240 ?High Triglyceride 122 <150 mg/dL 10/27/2022 3:09 PM EDT PREFERRED [facility] Comment: < 150 ? Normal 150 - 199 ?Borderline High 200 - 499 ?High ??>= 500 ? Very High HDL 50 >=40 mg/dL 10/27/2022 3:09 PM EDT [facility] Comment: ??> 60 ?Optimal 40 - 60 ?Acceptable ?? < 40 ?Low LDL Calculated 56 <100 mg/dL 10/27/2022 3:09 PM EDT PREFERRED [employer], [facility] Non-HDL-C Calculated 78 <=129 mg/dL 10/27/2022 3:09 PM EDT [facility] Comment: <130 ?Desirable 130-159 Above Desirable 160-189 Borderline High 190-219 High >= 220 ??Very High Fasting Specimen? Yes None 023 3:09 PM EDT [facility] Blood VENOUS BLOOD / Unknown Venipuncture / Unknown 10/27/2022 10:59 AM EDT 10/27/2022 10:59 AM EDT Fili Sanchez MD CHEMISTRY ORDERABLES Fin al Result [facility] [address] [facility], [place] [address] [facility] [address] [place] [address] from Last 3 Months or Most Recently Relevant to Health Maintenance Insurance [place]ICARE [place] B [place]ARE [place] PART A AND B [employer] INS MED[place]ARE [place] PART A AND B AETNA [facility] SPPNTL INS Care Teams Geospatial Information Scientist Relationship Specialty Start Date End Date Aba Espinoza MD [address] [place] [address] [place] [id number] PCP - General Family Medicine 07/27/16 Fili Sanchez MD [address] [facility] [address] [place] [id number] Internal Medicine-Endocrinology, Diabetes & Metabolism 04/11/14
--- OUTSIDE RECORDS SUMMARY | 2024-01-18 14:51 | XMS_ITS | Encounter Summary ---
Author Organization [facility] [place] [address] Care Team Providers Care Land Planner Name Role Phone Fili Sanchez MD Unavailable Aba Espinoza MD Primary Care Provider [phone] Encounter Details Date Type Department Care Team (Latest Contact Info) Description 01/14/2024 Travel Social History Tobacco Use Types Packs/Day [...] Description 04/26/2024 9:00 AM EDT Office Visit [facility] Nephrology [place] [address] [place] [address] Julio Silva MD [address] [place] [address] documented as of this encounter Visit Diagnoses Not on filedocumented in this encounter Additional Health Concerns Assessment Noted Time A fall risk assessment has been complete d for the patient 10/19/2023 9:50 AM EDT documented as of this encounter Care Teams Land Planner Relationship Specialty Start Date End Date Aba Espinoza MD [address] [place] [address] [place] [phone] PCP - General Family Medicine 07/27/16 Fili Sanchez MD [address] [phone] Internal Medicine-Endocrinology, Diabetes & Metabolism 04/11/14 documented as of this encounter
--- OUTSIDE RECORDS SUMMARY | 2024-01-18 14:51 | XMS_ITS | Encounter Summary ---
Author Organization Address [address] [place] [address] Care Team Providers Care Electronic Equipment Repairer Name Role Phone Heriberto Quan MD Primary Care Provider [phone] Reason for Referral * Other Medical (Routine) - Pending Review Specialty Diagnoses / Procedures Referred By Kadie casillas Referred To Contact Diagnoses Chronic pain of both knees Bilateral primary osteoarthritis of knee Procedures Injection - Large Joint: R knee Michael Reynolds DO [address] [address] Phone: tel: fax: Referral ID Status Reason Start Date Expiration Date V isits Requested Visits Authorized [id number] Pending Review 09/29/2023 03/30/2025 1 1 * Other Medical (Routine) - Closed Specialty Diagnoses / Procedures Referred By Kadie casillas Referred To Contact Physical Medicine and Rehabilitation Diagnoses Chronic pain of both knees Bilateral primary osteoarthritis of knee Procedures Injection - Large Joint Michael Reynolds DO [address] [address] Phone: tel: fax: Referral ID Status Reason Start Date Expiration Date Visits Re quested Visits Authorized [id number] Closed 09/29/2023 03/30/2025 1 1 Encounter Details Date Type Department Care Team (Late st Contact Info) Description 09/29/2023 11:40 AM EDT Office Visit [facility] Rehabilitation [facility] at [facility] [address] [place] [address] Michael Reynolds DO [address] [place] [address] Chronic pain of both knees [...] Sign Reading Time Taken Comments Blood Pressure 97/58 09/29/2023 11:37 AM EDT Pulse 72 09/29/2023 11:37 AM EDT Temperature - - Respiratory Rate - - Oxygen Saturation 98% 09/29/2023 11:37 AM EDT Inhaled Oxygen Concentration - - Weight 122 kg (270 lb) 09/29/2023 11:37 AM EDT Height 190.5 cm (6' 3 ) 09/29/2023 11:37 AM EDT Body Mass Index 33.75 09/29/2023 11:37 AM EDT documented in this encounter Miscellaneous Notes * Progress Notes - Raphael Bob DO - 09/29/2023 11:40 AM EDTAssociated Order(s): Injection - Large Joint: R knee Post-Procedure Diagnose(s): Chronic pain of both knees; Bilateral primary osteoarthritis of knee [facility] PHYSICAL MEDICINE AND REHABILITATION OUTPATIENT FOLLOW UP NOTE Chief Complaint: b/l knee pain HPI Onset: worsening since Sep 2022 Location: R > L medial knee recess; deep, intraarticular Duration: constant Character: stabbing ache Radiation: none Timing: PM > AM Associated Factors: crepitus, CAD s/p CABG 2021, ischemic HFpEF ( EF 18%) Exacerbating Factors: walking, standing/seated long time Alleviating Factors: Tylenol, jamel's rub Severity: On average pain level 6/10 and at worst pain level 7/10. INTERVAL HISTORY: Patient returns to clinic today following initial consultation and evaluation of bilateral knee pain right >left completed on 09/15/2023. Patient presents with today. Patient continues to utilize diclofenac gel and OTC analgesics/NSAIDs to mitigate symptoms. Patient endorses significant carmelita litating pain that has greatly impacted activities of daily living including exercises and house hold chores. Patient has been staying at [facility] and is moving back up to [facility] in the coming days. Patient would like to review XR images and discuss possible treatment options moving forward. Of note, patient has not been able to start PT due to lack of availability. Patient is otherwise in good health and in NAD today. Patient denies weakness, numbness, significant bilateral lower extremity weakness/sensory deficit, fever or other unexplained weight loss/red flag symptoms. Details of past medical history, surgical history, family history, and social history reviewed in the medical record. Prior Treatment Have You Tried Any Benefit Comments Rest Yes Sometimes Ice No N/A Heat No N/A Topical Medications: Voltaren gel, Lidocaine, Aspercream, BenGay, Icy Hot, etc No N/A N/A NSAIDs Ibuprofen, Advil, Naproxen, Aleve, Meloxicam, Diclofenac, Celebrex Yes Sometimes N/A Tylenol Yes Yes Muscle Relaxants No N/A N/A Manual Medicine No N/A [id number]: N/A Other Treatments: none Physical Therapy: Patient has completed PT for knee pain Injection Therapies: [...] not pertinent. Social History: Patient lives in [place], [place]. Lives in a(n) home with Education [...] day., Disp: , Rfl: ergocalciferol 1.25 MG (01666 UT) capsule, Take 1 capsule (50,000 Units) [...] by mouth if needed., Disp: , Rfl: No current facility-administered medications for this visit. Physical Exam: Visit Vitals BP 97/58 Pulse 72 Ht 1.905 m (6' 3 ) Wt 122 kg (270 lb) SpO2 98% BMI 33.75 kg/m?? Some recent data might be hidden General: Well nourished, NAD Psych: Alert and oriented x 3. Mood and affect normal. Eyes: PERRLA and EOMI. Respiratory: nonlabored breathing and normal rate Cardiovascular: no edema and no clubbing Skin: warm, dry and intact. No rashes on exposed skin. Neuro: Speech fluent. Follows commands. Normal muscle tone. MSK: Gait intact, not antalgic. TTP b/l knee medial recess Motor Exam: Lower Extremity Motor Strength Right Left L2: Hip flexion (Iliopsoas) 5 55 L3: Knee extension (Quads) / 5 L4: Ankle DF (TA) 06/18 55 L5: Great Toe DF (EHL) 06/18 5 S1: Ankle PF (Gastroc and Soleus) Foot Eversion (Peroneal longus/brevis) 06/18 5 S2: Great Toe flexion (FHL) Knee flexion 06/18 5 Neuro Exam: Lower Extremity Reflexes Right Left [...] Positive Giovanni Negative Negative Thessaly Negative Negative Name of Procedure: R knee CSI Pre-Procedure Diagnosis: R knee OA Post-Procedure Diagnosis: Same Procedure performed by: Raphael Bob DO Supervised by: Michael Reynolds DO The patient was examined and informed of the risks, benefits, and alternative options. The patient signed the informed consent form. A time out was performed to verify the correct patient identity, site, and procedure. In seated position, the right Knee was exposed, the knee joint was palpated, marked, and prepped with chloraprep. Under aseptic conditions, a 25 gauge 1.5 inch needle was advanced into the knee jointwithout ultrasound guidance, followed by an injection of 40mg Triamcinolone, 2mL 0.25% Bupivicaine,and 2mL 1% Lidocaine after negative aspiration. The needle removed from the injection site thereafter. A bandage was applied. The patient tolerated the procedure well with no complications. Patient ID: Dane Ray is a 72 y.o. male. Encounter Diagnoses Name Primary? Chronic pain of both knees Yes Bilateral primary osteoarthritis of knee Injection - Large Joint: R knee on 09/29/2023 11:40 AM Indications: pain and joint swelling Details: 22 G needle, anterolateral approach (guidance: palpation) Medications: 10 mg bupivacaine 0.5 %; 20 mg lidocaine 1 %; 10 mg Kenalog-10 10 MG/ML Outcome: tolerated well, no immediate complications Procedure, treatment alternatives, risks and benefits explained, specific risks discussed. Consent was given by the patient. Immediately prior to procedure a time out was called to verify the correctpatient, procedure, equipment, it support specialist and site/side marked as required. Patient was prepped and draped in the usual sterile fashion. Assessment: Dane Ray is a 72 y.o. male with b/l knee pain who presents to clinic for evaluation and recommendations. This is a/an Chronic Progressing problem Diagnoses and all orders for this visit: Chronic pain of both knees - Injection - Large Joint; Future - lidocaine (Xylocaine) 1 % injection 2 mL - triamcinolone acetonide (Kenalog-40) injection 40 mg - bupivacaine PF (Marcaine) 0.25 % injection 5 mg Bilateral primary osteoarthritis of knee - Injection - Large Joint; Future - lidocaine (Xylocaine) 1 % injection 2 mL - triamcinolone acetonide (Kenalog-40) injection 40 mg - bupivacaine PF (Marcaine) 0.25 % injection 5 mg Other orders - Injection - Large Joint PLAN: #Primary Knee Osteoarthritis, chronic progressing #Acute on Chronic Knee Pain, chronic worsening Due to the patient 's persistent symptoms of intraarticular knee pain secondary to radiographic evidence of moderate to severe OA. Corticosteroid injections were considered for today's appointment due to the chronic progressive nature of the patient's symptoms. Patient tolerated CSI to the right knee with no postprocedural complications. Patient endorsed significant improvement of symptoms immediately following the injection. Patient endorsed greater than 50% symptom relief. Counseled patient on the likelihood for postoperative soreness and increased pressure inside the knee following today's procedure. Discussed the need for mobilization of the knee in order to assist in evenly dissipating the substance throughout the joint. Informed patient to contact the office if symptoms do not resolve in approximately 3-5 days. Recommended that the patient continue conservativemanagement including ice, heat and OTC analgesics/anti- inflammatories as needed. Depending on the responsiveness of today's CSI injection, discussed the candidacy for alternative treatments in the setting of primary osteoarthritis. Discussed the option for MAYBERRY injections to provide benefit over prior corticosteroid injections. Will also introduce the possibility for orthopedic ball rgery referral in order to consider options for knee replacement versus alternative non-surgical treatment modalities (e.g including Cryoneurolysis/Iovera, Genicular Nerve blocks with IVP or repeat MAYBERRY injections) to mitigate current worsening symptoms. At that time, may obtain repeat plain film radiographs of the knee to assess for worsening and/or advancement of osteoarthritis of the knee. Patient recommended to: 1. Keep the injection site clean and dry. 2. Continue medications as currently prescribed. 3. Avoid submerging injection site, eg. Hot tub, pool, baths, for at least 24 hours Follow up in about 3 months (around 12/30/2023) for large joint right knee . Patient was seen and plan was discussed with attending physician Dr. Michael Reynolds DO; we are grateful for the opportunity to participate in the care of this patient. Raphael Bob D.O MSirishaS Resident Physician, PGY-2 Dept. Of Physical Medicine and Rehabilitation This note was partially generated using [employer] Direct system, and there may be some incorrect words, spellings, and punctuation that were not noted in checking the note before saving. Cosigned by Michael Reynolds DO at 09/30/2023 7:53 AM EDT Associated attestation - Michael Reynolds DO - 09/30/2023 7:53 AM EDT I saw and evaluated the patient with the resident/fellow. I discussed the case with the resident/fellow and agree with the findings and plan as documented. I was present for the entirety of the procedure(s). documented in this encounter Plan of Treatment Scheduled Orders Name Type Priority Associated Diagnoses Orde r Schedule Injection - Large Joint Procedures Routine Chronic pain of both knees Bilateral primary osteoarthritis of knee Expected: 09/29/2023, Expires: 09/28/2024 documented as of this encounter Procedures Procedure Name Priority Date/Time Associated Diagnosis Comments MI ARTHROCENTESIS ASPIR&/INJ MAJOR JT/BURSA W/O US Routine 09/29/2023 11:40 AM EDT Chronic pain of both knees Bilateral primary osteoarthritis of knee documented in this encounter Results * MI ARTHROCENTESIS ASPIR&/INJ MAJOR JT/BURSA W/O US (09/29/2023 11:40 AM EDT) Narrative Michael Reynolds, DO - 09/29/2023 11:40 AM EDT Michael Reynolds, DO ? 09/30/2023 ??7:53 AM Injection - Large Joint: R knee on 09/29/2023 11:40 AM Indications: pain and joint swelling Details: 22 G needle, anterolateral approach (guidance: palpation) Medications: 10 mg bupivacaine 0.5 %; 20 mg lidocaine 1 %; 10 mg Kenalog-10 10 MG/ML Outcome: tolerated well, no immediate complications Procedure, treatment alternatives, risks and benefits explained, specific risks discussed. Consent was given by the patient. Immediately prior to procedure a time out was called to verify the correct patient, procedure, equipment, it support specialist and site/side marked as required. Patient was prepped and draped in the usual sterile fashion. Michael Reynolds DO IN CLINIC/BEDSIDE ORDERABL ES Final Result documented in this encounter Visit Diagnoses Diagnosis Chronic pain of both knees- Primary Bilateral primary osteoarthritis of knee documented in this encounter Administered Medications Inactive Administered Medications - up to 3 most recent administrations Medication Order MAR Action Action Date Dose Rate Site bupivacaine (Marcaine) 0.5 % injection 10 mg 10 mg, Injection, Once PRN Procedure, 1 dose, Starting on Marie 09/29/23 at 1140, Until Marie 09/29/23 at 1140, RoutineIndications:Chronic pain of both knees,Bilateral primary osteoarthritis of knee Given 09/29/2023 11:40 AM EDT 10 mg bupivacaine PF (Marcaine) 0.25 % injection 5 mg 5 mg (2 mL), Injection, Once, 1 dose, On Marie 09/29/23 at 1230, RoutineIndications:Chronic pain of both knees,Bilateral primary osteoarthritis of knee Given 09/29/2023 12:10 PM EDT 5 mg Other lidocaine (Xylocaine) 1 % injection 2 mL 2 mL, Injection, Once, 1 dose, On Marie 09/29/23 at 1230, RoutineIndications:Chronic pain of both knees,Bilateral primary osteoarthritis of knee Given 09/29/2023 12:09 PM EDT 2 mL Other lidocaine (Xylocaine) 1 % injection 20 mg 20 mg, Intra-articular, Once PRN Procedure, 1 dose, Starting on Marie 09/29/23 at 1140, Until Marie 09/29/23 at 1140, RoutineIndications:Chronic pain of both knees,Bilateral primary osteoarthritis of knee Given 09/29/2023 11:40 AM EDT 20 mg triamcinolone acetonide (Kenalog) 10 MG/ML injection 10 mg 10 mg, Intra-articular, Once PRN Procedure, 1 dose, Starting on Marie 09/29/23 at 1140, Until Marie 09/29/23 at 1140, RoutineIndications:Chronic pain of both knees,Bilateral primary osteoarthritis of knee Given 09/29/2023 11:40 AM EDT 10 mg triamcinolone acetonide (Kenalog-40) injection 40 mg 40 mg, Intra-articular, Once, 1 dose, On Marie 09/29/23 at 1230, RoutineIndications:Chronic pain of both knees,Bilateral primary osteoarthritis of knee Given 09/29/2023 12:09 PM EDT 40 mg Other documented in this encounter Additional Health Concerns Assessment Noted Time A fall risk assessment has been complete d for the patient 09/29/2023 11:41 AM EDT A Body Mass Index follow-up plan has been documented for the patient 09/29/2023 12:31 PM EDT documented as of this encounter Care Teams Electronic Equipment Repairer Relationship Specialty Start Date End Date Heriberto Quan MD [address] [place] [address] PCP - General 08/24/23 documented as of this encounter
--- OUTSIDE RECORDS SUMMARY | 2024-01-18 14:51 | XMS_ITS | Encounter Summary ---
Author Organization [place] [address] Care Team Providers Care Senior Java Software Developer Name Role Phone Fili Sanchez MD Unavailable [phone] Aba Espinoza MD Primary Care Provider [phone] Reason for Visit * Reason Comments Medication Refill Encounter Details Date Type Department Care Team (Late st Contact Info) Description 01/13/2024 Refill [facility] Physicians [facility] Diabetes Tracy [address] [facility] [address] [place] [phone] Lakisha Gupta APRN [address] [facility] [address] [place] [phone] Medication Refill Social History Tobacco Use [...] Refills Last Filled Start Date End Date BASAGLAR ANTONIIKPEN U-100 INSULIN 100 unit/mL (3 mL) SubQ Insulin Pen Inject 20 units daily 30 Each 1 01/16/2024 documented in this encounter Miscellaneous Notes * Telephone Encounter - Betty Grimes CPhT - 01/16/2024 6:32 AM EST Insulin Glargine - Refill request deferred to the office: Patient is taking medication differently than prescribed documented in this encounter Plan of Treatment Upcoming Encounters Date Type Department Care Team (Late st Contact Info) Description 04/26/2024 9:00 AM EDT Office Visit [facility] Neph[facility] [place] [address] [facility] [place] [address] Julio Silva MD [address] [facility] [place] [address] documented as of this encounter Visit Diagnoses Not on filedocumented in this encounter Discontinued Medications Medication Sig Discontinue Reason Start Date End Da te BASAGLAR KWIKPEN U-100 INSULIN 100 unit/mL (3 mL) SubQ Insulin Pen Subcutaneous (Inject under the skin) 26 Units every evening. 02/25/2023 01/16/2024 documented as of this encounter Additional Health Concerns Assessment Noted Time A fall risk assessment has been complete d for the patient 10/19/2023 9:50 AM EDT documented as of this encounter Care Teams Senior Java Software Developer Relationship Specialty Start Date End Date Aba Espinoza MD [address] [place] [address] [place] [id number] PCP - General Family Medicine 07/27/16 Fili Sanchez MD [address] [facility] [address] [place] [address] Internal Medicine-Endocrinology, Diabetes & Metabolism 04/11/14 documented as of this encounter
--- OUTSIDE RECORDS SUMMARY | 2024-01-18 14:52 | XMS_ITS | Encounter Summary ---
Author Organization [place] [address] Care Team Providers Care Associate Professor Of Art History Name Role Phone Fili Sanchez MD Unavailable [phone] Aba Espinoza MD Primary Care Provider [phone] Reason for Referral * Consultation (Routine) - Pending Review Specialty Diagnoses / Procedures Referred By Kadie casillas Referred To Contact Nephrology Diagnoses Stage 3a chronic kidney disease (HCC) Lakisha Gupta APRN [address] [facility] [address] [place] [address] Phone: tel: fax: Kidney [facility] Hypertension [address] [place] [address] [address] [place] [address] Phone: tel: fax: Referral ID Status Reason Start Date Expiration Date V isits Requested Visits Authorized [id number] Pending Review 02/25/2023 02/25/2024 99 99 Reason for Visit * Reason Comments Diabetes type 2 * Consultation (Routine) - Closed Specialty Diagnoses / Procedures Referred By Kadie casillas Referred To Contact Internal Medicine-Endocrinology, Diabetes & Metabolism / Diabetes Services Diagnoses FU DM, type 2-4 months per 04/05/22 lw Procedures DM FOLLOW UP Aba Espinoza MD [address] [place] [address] [place] [address] Phone: tel: fax: Fili Sanchez MD [address] [employer] [address] [place] [phone] Phone: tel: fax: Referral ID Status Reason Start Date Expiration Date Visits Re quested Visits Authorized [id number] Closed 08/04/2022 08/04/2023 99 99 Encounter Details Date Type Department Care Team (Late st Contact Info) Description 02/25/2023 9:20 AM EST Office Visit [facility] [address] [employer] [address] [place] [phone] Lakisha Gupta APRN [address] [employer] [address] [phone] Type 2 diabetes mellitus with microalbuminuria, with long-term current use of insulin (HCC) (Primary Dx); Type 2 diabetes mellitus with diabetic nephropathy, with long-term current use of insulin (HCC); Hypertension associated with diabetes (HCC) (HCC); Dyslipidemia associated with type 2 diabetes mellitus (HCC) (HCC); Encounter for long-term (current) use of medications; Long-term insulin use (HCC); Stage 3a chronic kidney disease (HCC); Vitamin D deficiency; Severe obesity (BMI 35.0-39.9) with comorbidity (HCC); Obesity, diabetes, and hypertension syndrome (HCC) (HCC) Social History Tobacco Use Types Packs/Day Years Used Date Smoking Tobacco: Former Cigarettes 3 4 1 03/02/2012 - 06/25/2016 Smokeless Tobacco: Never Comments:3 months ago Alcohol Use Standard Drinks/Week Comments Not Currently 10 (1 standard drink = 0.6 oz [...] Sign Reading Time Taken Comments Blood Pressure 104/64 02/25/2023 9:22 AM EST Pulse 95 02/25/2023 9:22 AM EST Temperature - - Respiratory Rate 12 02/25/2023 9:22 AM EST Oxygen Saturation - - Inhaled Oxygen Concentration - - Weight 123.6 kg (272 lb 8 oz) 02/25/2023 9:22 AM EST Height 185.4 cm (6' 1 ) 02/25/2023 9:22 AM EST Body Mass Index 35.95 02/25/2023 9:22 AM EST documented in this encounter Ordered Prescriptions Prescription Sig Dispense Quantity Refills Last Filled Start Date End Date cyanocobalamin 1,000 mcg Oral Tablet Take 1 Tablet by mouth daily. Take one tab daily 02/25/2023 ergocalciferol (DRISDOL) 1,250 mcg (50,000 unit) Oral Capsule Take 1 Capsule by mouth once a week. 12 Capsule 3 02/25/2023 4 glipiZIDE (GLUCOTROL XL) 5 mg Oral Tablet Extended Rel 24 hr Take 3 tabs with first meal of the day 270 Tablet 2 02/25/2023 4 BASAGLAR KWIKPEN U-100 INSULIN 100 unit/mL (3 mL) SubQ Insulin Pen Subcutaneous (Inject under the skin) 26 Units every evening. 15 mL 3 02/25/2023 4 semaglutide 0.25 mg or 0.5 mg (2 mg/3 mL) SubQ Pen Injector Subcutaneous (Inject under the skin) 0.5 mg once a week. 9 mL 2 02/25/2023 4 documented in this encounter Progress Notes * Ranjana Harper MA - 02/25/2023 9:20 AM EST pharmacy verified no refills checks bs 3-4 ismael * Lakisha Gupta APRN - 02/25/2023 9:20 AM EST Diabetes Associated symptoms include arthralgias, headaches, myalgias and neck pain. Pertinent negatives include no abdominal pain, chest pain, chills, congestion, coughing, diaphoresis, fatigue, fever, nausea, numbness, rash, sore throat, vomiting or weakness. Dane Ray is a 72 y.o. male who presents today for follow up Diabetes Mellitus since 2003. He is here for follow up. He was last seen 3 months ago. Current diabetes regimen includes: Glipizide XL 5 mg 2 tabs a day before breakfast Jardiance 25 mg a day Basaglar 23 units every evening. Did not start the ozempic as ordered at last visit due to cost. Using Rianna: avg for past 2 weeks is 203 with 31% TIR and no lows. Sugars are elevated after meals and also overnight. Review of Systems Constitutional: Positive for activity change and appetite change. Negative for chills, diaphoresis,fatigue and fever. HENT: Positive for dental problem. Negative for congestion, drooling, ear discharge, ear pain, facial swelling, hearing loss, mouth sores, nosebleeds, postnasal drip, rhinorrhea, sinus pressure, sorethroat, tinnitus and voice change. Eyes: Positive for visual disturbance. Negative for photophobia, pain, discharge, redness and itching. Respiratory: Negative for apnea, cough, choking, chest tightness, shortness of breath and wheezing. Cardiovascular: Positive for leg swelling. Negative for chest pain. Gastrointestinal: Positive for diarrhea. Negative for abdominal distention, abdominal pain, anal bleeding, constipation, nausea, rectal pain and vomiting. Endocrine: Negative for cold intolerance, heat intolerance, polydipsia, polyphagia and polyuria. Genitourinary: Positive for flank pain. Negative for decreased urine volume, dysuria, frequency, genital sores and urgency. Musculoskeletal: Positive for arthralgias, back pain, myalgias, neck pain and neck stiffness. Negative for gait problem. Skin: Negative for color change, pallor, rash and wound. Allergic/Immunologic: Negative for environmental allergies, food allergies and immunocompromised state. Neurological: Positive for dizziness, light-headedness and headaches. Negative for tremors, seizures, speech difficulty, weakness and numbness. Hematological: Bruises/bleeds easily. Psychiatric/Behavioral: Negative for agitation, behavioral problems, confusion, decreased concentration, dysphoric mood, hallucinations, self-injury, sleep disturbance and suicidal ideas. The patientis not nervous/anxious and is not hyperactive. Objective Vitals: 02/25/23 0922 BP: 104/64 Pulse: 95 Resp: 12 Weight: 272 lb 8 oz (123.6 kg) Height: 6' 1 (1.854 m) Body mass index is 35.95 kg/m??. Objective: Physical Exam Vitals reviewed. Constitutional: Appearance: Normal appearance. He is obese. HENT: Head: Normocephalic. Nose: Nose normal. Eyes: Conjunctiva/sclera: Conjunctivae normal. Cardiovascular: Rate and Rhythm: Normal rate. Pulmonary: Effort: Pulmonary effort is normal. Abdominal: General: There is no distension. Musculoskeletal: General: Normal range of motion. Cervical back: Normal range of motion. Right lower leg: Edema present. Left lower leg: Edema present. Neurological: Mental Status: He is alert and oriented to person, place, and time. Psychiatric: Mood and Affect: Mood normal. Behavior: Behavior normal. Thought Content: Thought content normal. Judgment: Judgment normal. Laboratory: Lab Results Component Value Date HGBA1C 9.2 (H) 02/23/2023 Lab Results Component Value Date CREATININE 1.45 (H) 02/23/2023 No results found for: TSHREFLEX Lab Results Component Value Date ALT 20 02/23/2023 AST 17 02/23/2023 ALKPHOS 76 02/23/2023 Lab Results Component Value Date URINEMICROAL 13.6 10/27/2022 Lab Results Component Value Date CHOLESTEROL 128 10/27/2022 Lab Results Component Value Date HDL 50 10/27/2022 Lab Results Component Value Date LDLCALC 56 10/27/2022 Lab Results Component Value Date TRIG 122 10/27/2022 No results found for: CHOLHDL Assessment and Plan: 1. Diabetes Mellitus Type 2 UnControlled with CKD 3 Plan: -increase Glipizide ER 5 mg 3 tabs before first meal of the day. -increase Basaglar to 26 units a day. -continue Jardiance 25 mg a day. Tolerating well. -Call if BS less than 80 -Continue Freestyle rianna. Will see if can afford ozempic again, Take Ozempic 0.25 mg subcutaneous once a week for 4 weeks, increase to Ozempic 0.5 mg once a week until your next office visit here. Stop taking Ozempic and call the office if experiencing severe nausea, vomiting, or abdominal pain. -Hypoglycemic symptoms, prevention and treatment discussed in detail. - Advised to keep glucose tab and hard candy with him all the time -unable to use actos due to HF. -check fingerstick 2 times a day at different times. Diabetes Health Maintance: Eye exam: Advised yearly eye exam. Last exam on record from 04/2020; will call for report. Foot exam: 10/2022 MATT/ARB: on entresto ASA: 81 mg once a day. Smoking: former smoker 2. HTN: BP is at goal; Follows with Cardiology. 3. Dyslipidemia: currently not taking crestor 20 mg due to myalgias per direction of PCP. Goal LDL of less than 55 with hx of CAD; 10/2022 LDL at 56, HDL and trigs at goal. He prefers to defer to cardiology and PCP right no, will not recheck. 4. CAD with low EF and hx of CABG 10/2021: defer to specialist 5. Vit D Def: level low, will start drisdol once a week and repeat at follow up. 6. Low normal B 12: start OTC 1000 mcg daily since having myalgias. No follow-ups on file. documented in this encounter Miscellaneous Notes * Patient Instructions - Lakisha Gupta APRN - 02/25/2023 9:20 AM EST Test sugars at fasting and 2 hours after lunch or last meal of the day. Continue sensor. Start prescription vitamin D once a week Start over the counter vitamin B 12 1000 mcg once a day. Increase basaglar to 26 units daily and increase glipizide to 3 tabs Take Ozempic 0.25 mg subcutaneous once a week for 4 weeks, increase to Ozempic 0.5 mg once a week until your next office visit here. Stop taking Ozempic and call the office if experiencing severe nausea, vomiting, or abdominal pain. documented in this encounter Plan of Treatment Upcoming Encounters Date Type Department Care Team (Late st Contact Info) Description 04/26/2024 9:00 AM EDT Office Visit [facility] Nephrology [place] [address] [place] [address] Julio Silva MD [address] [address] Scheduled Orders Name Type Priority Associated Diagnoses Orde r Schedule IL CONTINUOUS GLUCOSE MONITORING ANALYSIS I&R [place] Charge Routine Type 2 diabetes mellitus with microalbuminuria, with long-term current use of insulin (HCC) Ordered: 02/25/2023 Scheduled Referrals Name Type Priority Associated Diagnoses Order Schedule AMB REFERRAL TO NEPHROLOGY Outpatient Referral Routine Stage 3a chronic kidney disease (HCC) Ordered: 02/25/2023 documented as of this encounter Results * VITAMIN D 25 HYDROXY (05/30/2023 11:11 AM EDT) Vit D 25 OH 31.9 30.0 - 150.0 ng/mL 05/30/2023 4:03 PM EDT [facility] Comment: Preferred: >= 30 ng/mL Insufficient: 21-29 ng/mL Deficient <= 20 ??ng/mL Possible Toxicity: >150 ng/mL Samples should not be taken from patients receiving therapy with high biotin doses (i.e. > 5 mg/day) until at least 8 hours following the last biotin administration. Blood VENOUS BLOOD / Unknown Venipuncture / Unknown 05/30/2023 11:11 AM EDT 05/30/2023 11:11 AM EDT us Lakisha Gupta MEASUREMENT TECHNICIAN CHEMISTRY ORDERABLES Final R esult [facility] [address] [place] [address] * VITAMIN B12 LEVEL (05/30/2023 11:11 AM EDT) Vitamin B12 867 232 - 1,245 pg/mL 05/30/2023 4:03 PM EDT [facility] [employer] [facility] Blood VENOUS BLOOD / Unknown Venipuncture / Unknown 05/30/2023 11:11 AM EDT 05/30/2023 11:11 AM EDT Narrative [facility] [employer] [facility] - 05/30/2023 4:03 PM EDT Ingestion of pratik doses of biotin (>5 mg/day) taken within 8 hours of drawing blood sample can interfere with this immunoassay test. Lakisha Gupta APRN CHEMISTRY ORDERABLES Final R esult Performing Organization Address [facility] [address] [facility] Co de Phone Number [facility] [employer] [address] , [place] [address] * (ABNORMAL) HEMOGLOBIN A1C (05/30/2023 11:11 AM EDT) [facility] Hgb A1C 8.0(H) 4.2 - 5.6 % 05/30/2023 3:54 PM EDT [facility] Est. Avg Glucose 183 mg/dL 05/30/2023 3:54 PM EDT [facility] [employer] [facility] Blood VENOUS BLOOD / Unknown Venipuncture / Unknown 05/30/2023 11:11 AM EDT 05/30/2023 11:11 AM EDT Narrative [facility] - 05/30/2023 3:54 PM EDT REFERENCE RANGE: Normal: 4.0-5.6% Pre-diabetes: 5.7-6.4% Provisional diagnosis of diabetes: >6.4% Hgb F>10% and anything which shortens red cell survival, such as hemolytic anemia, or unstable hemoglobin variants such as HbSS, HbSC, or HbCC, will lower the HbA1c value associated with a given level of glycemic control. ? Lakisha Gupta APRN CHEMISTRY ORDERABLES Final R esult Performing Organization Address [facility] [address]/[facility] Co de Phone Number [facility] [employer] [address] [place] [address] * (ABNORMAL) FRUCTOSAMINE (05/30/2023 11:11 AM EDT) Fructosamine 304(H) 205 - 285 mcmol/L 05/30/2023 4:03 PM EDT [facility] Blood VENOUS BLOOD / Unknown Venipuncture / Unknown 05/30/2023 11:11 AM EDT 05/30/2023 11:11 AM EDT Narrative [facility] - 05/30/2023 4:03 PM EDT Serum protein level variations may alter fructosamine results. Lakisha Gupta APRN CHEMISTRY ORDERABLES Final R esult [facility] [address] [facility] [address] , [place] [address] * (ABNORMAL) COMPREHENSIVE METABOLIC PANEL (05/30/2023 11:11 AM EDT) Sodium 137 136 - 145 mmol/L 05/30/2023 4:17 PM EDT [facility] Potassium 4.8 3.5 - 5.0 mmol/L 05/30/2023 4:17 PM EDT [facility] Chloride 99 98 - 107 mmol/L 05/30/2023 4:17 PM EDT [facility] Total CO2 25 22 - 29 mmol/L 05/30/2023 4:17 PM EDT [facility] Anion Gap 13 7 - 16 mmol/L 05/30/2023 4:17 PM EDT [facility] Calcium 10.3 8.8 - 10.4 mg/dL 05/30/2023 4:17 PM EDT [facility] Glucose Lvl 164(H) 70 - 99 mg/dL 05/30/2023 4:17 PM EDT [facility] BUN 29(H) 8 - 23 mg/dL 05/30/2023 4:17 PM EDT [facility] Creatinine 1.46(H) 0.67 - 1.30 mg/dL 05/30/2023 4:17 PM EDT [facility] Albumin 4.7(H) 3.2 - 4.6 gm/dL 05/30/2023 4:17 PM EDT [facility] Total Protein 7.7 6.4 - 8.3 gm/dL 05/30/2023 4:17 PM EDT [facility] Bili Total 0.3 0.2 - 1.4 mg/dL 05/30/2023 4:17 PM EDT [facility] ALT 20 <=41 U/L 05/30/2023 4:17 PM EDT [facility] AST 24 <=40 U/L 05/30/2023 4:17 PM EDT [facility] Alk Phos 53 40 - 129 U/L 05/30/2023 4:17 PM EDT [facility] eGFR (CKD-EPIcr 2020) 51(L) >=60 mL/min/1.7 3 m2 05/30/2023 4:17 PM EDT [facility] Comment:Estimated GFR was ca lculated using the CKD-EPIcr (2020) equation refit without race. The equation is recommended by the National Kidney Foundation - [place] [employer] of Nephrology Task Force. Blood VENOUS BLOOD / Unknown Venipuncture / Unknown 05/30/2023 11:11 AM EDT 05/30/2023 11:11 AM EDT Lakisha Gupta APRN CHEMISTRY ORDERABLES Final R esult [facility], [address] , [address] [place] [id number] [facility] [address] [place], [place] [phone] documented in this encounter Visit Diagnoses Diagnosis Type 2 diabetes mellitus with microalbuminuria, with long-term current use of insulin (HCC)- Primary Type 2 diabetes mellitus with diabetic nephropathy, with long-term current use of insulin (HCC) Hypertension associated with diabetes (HCC) Type II or unspecified type diabetes mellitus with other specified manifestations, not stated as uncontrolled Dyslipidemia associated with type 2 diabetes mellitus (HCC) Type II or unspecified type diabetes mellitus with other specified manifestations, not stated as uncontrolled Encounter for long-term (current) use of medications Encounter for long-term (current) use of other medications Long-term insulin use (HCC) Encounter for long-term (current) use of insulin Stage 3a chronic kidney disease (HCC) Vitamin D deficiency Unspecified vitamin D deficiency Severe obesity (BMI 35.0-39.9) with comorbidity (HCC) Obesity, diabetes, and hypertension syndrome (HCC) Type II or unspecified type diabetes mellitus without mention of complication, not stated as uncontrolled documented in this encounter Discontinued Medications Medication Sig Discontinue Reason Start Date End Da te BASAGLAR KWIKPEN U-100 INSULIN 100 unit/mL (3 mL) SubQ Insulin Pen Subcutaneous (Inject under the skin) 17 Units every evening. Reorder 11/25/2022 02/25/2023 glipiZIDE (GLUCOTROL XL) 5 mg Oral Tablet Extended Rel 24 hr Take 2 tabs with first meal of the day Reorder 11/25/2022 02/25/2023 documented as of this encounter Orders Nursing Count Last Ordered Date First Orde red Date EXTERNAL RESULTS REQUEST 1 02/25/2023 documented in this encounter Care Teams Associate Professor Of Art History Relationship Specialty Start Date End Date Aba Espinoza MD [address] [place] [address] [place] [phone] PCP - General Family Medicine 07/27/16 Fili Sanchez MD [address] [phone] Internal Medicine-Endocrinology, Diabetes & Metabolism 04/11/14 documented as of this encounter
--- OUTSIDE RECORDS SUMMARY | 2024-01-18 14:52 | XMS_ITS | Encounter Summary ---
Author Organization [place] [address] Care Team Providers Care Tobacco Stripping Machine Operator Name Role Phone Fili Sanchez MD Unavailable [phone] Aba Espinoza MD Primary Care Provider [phone] Reason for Visit * Reason Onset Date Comments Medication Refill 01/02/2023 Encounter Details Date Type Department Care Team (Late st Contact Info) Description 01/05/2023 Refill [facility] [address] [facility] [address] [place] [phone] Lakisha Gupta APRN [address] [facility] [address] [place] [phone] Medication Refill Social History Tobacco Use [...] encounter Miscellaneous Notes * Telephone Encounter - Jackie Adhikari MA - 01/05/2023 3:21 PM ESTFrom: Dane Ray To: Aba Espinoza Sent: 01/02/2023 9:24 PM EST Subject: Medication Renewal Request Refills have been requested for the following medications: Other - Spironolactone been out for a month.. Preferred pharmacy: [facility] - [place] [id number] - [facility] - [phone] Delivery method: Pickup documented in this encounter Plan of Treatment Upcoming Encounters Date Type Department Care Team (Late st Contact Info) Description 04/26/2024 9:00 AM EDT Office Visit [facility] Nephrology [place] [address] [place] [address] Julio Silva MD [address] [place] [address] documented as of this encounter Visit Diagnoses Not on filedocumented in this encounter Care Teams Tobacco Stripping Machine Operator Relationship Specialty Start Date End Date Aba Espinoza MD [address] [place] [address] [facility] [place] [place] [phone] PCP - General Family Medicine 07/27/16 Fili Sanchez MD [address] [facility] [address] [place] [phone] Internal Medicine-Endocrinology, Diabetes & Metabolism 04/11/14 documented as of this encounter
--- OUTSIDE RECORDS SUMMARY | 2024-01-18 14:52 | XMS_ITS | Encounter Summary ---
Author Organization [place] [address] Care Team Providers Care Manager Of Case Name Role Phone Fili Sanchez MD Unavailable [phone] Aba Espinoza MD Primary Care Provider [phone] Encounter Details Date Type Department Care Team (Late st Contact Info) Description 05/05/[address] [facility] [address] [place] [phone] Ranjana Harper MA Type 2 diabetes mellitus with microalbuminuria, with long-term current use of insulin (HCC) (Primary Dx) Social History Tobacco Use Types Packs/Day Years [...] Refills Last Filled Start Date End Date semaglutide 0.25 mg or 0.5 mg (2 mg/3 mL) SubQ Pen InjectorIndicatio ns:Type 2 diabetes mellitus with microalbuminuria, with long-term current use of insulin (HCC) Subcutaneous (Inject under the skin) 0.5 mg once a week. 9 mL 2 05/05/2023 4 documented in this encounter Plan of Treatment Upcoming Encounters Date Type Department Care Team (Late st Contact Info) Description 04/26/2024 9:00 AM EDT Office Visit [facility] Nephrology [place] [address] [place] [address] Julio Silva MD [address] [place] [address] documented as of this encounter Visit Diagnoses Diagnosis Type 2 diabetes mellitus with microalbuminuria, with long-term current use of insulin (HCC)- Primary documented in this encounter Discontinued Medications Medication Sig Discontinue Reason Start Date End Da te semaglutide 0.25 mg or 0.5 mg (2 mg/3 mL) SubQ Pen Injector Subcutaneous (Inject under the skin) 0.5 mg once a week. Reorder 02/25/2023 05/05/2023 documented as of this encounter Care Teams Manager Of Case Relationship Specialty Start Date End Date Aba Espinoza MD [address] [place] [phone] PCP - General Family Medicine 07/27/16 Fili Sanchez MD [address] [facility] [address] [place] [address] Internal Medicine-Endocrinology, Diabetes & Metabolism 04/11/14 documented as of this encounter
--- OUTSIDE RECORDS SUMMARY | 2024-01-18 14:52 | XMS_ITS | Encounter Summary ---
Author Organization [facility] [place] [address] Care Team Providers Care Production Painter Name Role Phone Fili Sanchez MD Unavailable [phone] Aba Espinoza MD Primary Care Provider [phone] Encounter Details Date Type Department Care Team (Latest Contact Info) Description 02/24/2023 Travel Social History Tobacco Use Types Packs/Day [...] Description 04/26/2024 9:00 AM EDT Office Visit [facility] Nephrology [place] [address] [facility] [place] [address] Julio Silva MD [address] [place] [address] documented as of this encounter Visit Diagnoses Not on filedocumented in this encounter Care Teams Production Painter Relationship Specialty Start Date End Date Aba Espinoza MD [address] [place] [phone] PCP - General Family Medicine 07/27/16 Fili Sanchez MD [address] [phone] Internal Medicine-Endocrinology, Diabetes & Metabolism 04/11/14 documented as of this encounter
--- OUTSIDE RECORDS SUMMARY | 2024-01-18 14:52 | XMS_ITS | Encounter Summary ---
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 [...] flash glucose sensor (FREESTYLE THIEN 2 SENSOR) [facility] Kit 1 Each by [facility].(Non-Drug; Combo Route) route every 14 days. 6 Kit 1 12/18/2021 FREESTYLE THIEN 2 READER [facility] Use as directed to test BS. DX code: E11.21 1 Each 12/18/2021 Insulin [place], Disposable, (BD PATITO 2ND GEN PEN NEEDLE) 32 gauge x 5/32 [facility] Needle USE ONCE DAILY WITH INSULIN 90 Each 1 09/22/2023 magnesium oxide 400 mg magnesium Oral Capsule Take by mouth. Take 2 times daily nitroGLYCERIN (NITROLINGUAL) 400 mcg/spray TL [place], Non-Aerosol Place 1 [place] under the tongue every 5 minutes as [...] every evening. 15 mL 3 02/25/2023 4 carvediloL (COREG) 12.5 mg Oral Tablet 12.5 mg 2 times daily. Take an additonal 6.25 every evening 03/26/2022 4 flash glucose sensor (FREESTYLE THIEN 14 DAY SENSOR) Misc Kit 1 Each by Mis.(Non-Drug; Combo Route) route every 14 days. 3 Kit 12/16/2021 4 glipiZIDE (GLUCOTROL XL) 5 mg Oral Tablet Extended Rel 24 hr Take 3 tabs with first meal of the day 270 Tablet 2 02/25/2023 4 documented as of this encounter Discharge Disposition Disposition Code Departure Means Destination Home or Self Care documented in this encounter Plan of Treatment Upcoming Encounters Date Type Department Care Team (Late st Contact Info) Description 04/26/2024 9:00 AM EDT Office Visit [facility] Nephrology [place] [address] [facility] [place] [address] Julio Silva MD [address] [facility] [place] [address] documented as of this encounter Procedures Procedure Name Priority Date/Time Associated Diagnosis Comments PROTEIN/CREATININE RATIO URINE Routine 10/11/2023 2:07 PM EDT Stage 3a chronic kidney disease (HCC) MICROALBUMIN/CREATININE RATIO URINE Routine 10/11/2023 2:07 PM EDT Stage 3a chronic kidney disease (HCC) URINALYSIS Routine 10/11/2023 2:07 PM EDT Stage 3a chronic kidney disease (HCC) BILIRUBIN DIRECT Routine 10/11/2023 10:4 0 AM EDT Stage 3a chronic kidney disease (HCC) VITAMIN D 25 HYDROXY Routine 10/11/2023 10:40 AM EDT 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) ALANINE AMINOTRANSFERASE Routine 024 10:40 AM EDT Stage 3a chronic kidney disease (HCC) ASPARTATE AMINOTRANSFERASE Routine 10/11/2023 10:40 AM EDT Stage 3a chronic kidney disease (HCC) PROTEIN TOTAL-BLOOD Routine 10/11/2023 1 0:40 AM EDT Stage 3a chronic kidney disease (HCC) ALKALINE PHOSPHATASE Routine 10/11/2023 10:40 AM EDT Stage 3a chronic kidney disease (HCC) PARATHYROID HORMONE INTACT Routine 10/11/2023 10:40 AM EDT 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) BILIRUBIN TOTAL Routine 10/11/2023 10:40 AM EDT Stage 3a chronic kidney disease (HCC) RENAL FUNCTION PANEL Routine 10/11/2023 10:40 AM EDT Stage 3a chronic kidney disease (HCC) documented in this encounter Results * (ABNORMAL) URINALYSIS (10/11/2023 2:07 PM EDT) UA Color Light Yellow 10/11/2023 7:44 PM EDT [facility] UA Appear Clear Clear 10/11/2023 7:44 PM EDT [facility] UA Glucose 4+ (1000 mg/dL)(A) Negative mg/dL 10/11/2023 7:44 PM EDT [facility] UA Ketones Negative Negative mg/dL 10/11/2023 7:44 PM EDT [facility] UA Blood Negative Negative 10/11/2023 7:44 PM EDT [facility] UA pH 6.5 5.0 - 8.0 pH 10/11/2023 7:44 PM EDT [facility] UA Protein Trace (10 mg/dL)(A) Negative mg/dL 10/11/2023 7:44 PM EDT [facility] UA Urobilinogen Normal <=1 mg/dL 7:44 PM EDT [facility] UA Bili Negative Negative 10/11/2023 7:44 PM EDT [facility] UA Nitrite Negative Negative 10/11/2023 7:44 PM EDT [facility] UA Leuk Est Negative Negative 10/11/2023 7:44 PM EDT [facility] UA Spec Grav 1.020 1.001 - 1.035 no units 10/11/2023 7:44 PM EDT [facility] Comment:Reference range ji d for random specimens only. Urine URINE SPECIMEN COLLECTION, CLEAN CATCH / Unknown 10/11/2023 2:07 PM EDT 10/11/2023 2:07 PM EDT us Julio Silva MD URINE ORDERABLES Final Result [facility] [address] [facility] [address] , [place] [address] * PROTEIN/CREATININE RATIO URINE (10/11/2023 2:07 PM EDT) Urine Protein 8.9 mg/dL 10/11/2023 9:04 PM EDT [facility] Urine Creatinine 90.1 mg/dL 10/11/2023 9:04 PM EDT [facility] Ur Protein/Creat 0.10 <=0.14 mg/mg 10/11/2023 9:[address] [facility] Urine URINE SPECIMEN COLLECTION / Unknown 10/11/2023 2:07 PM EDT 10/11/2023 2:07 PM EDT us Julio Silva MD URINE ORDERABLES Final Result [facility] [address] [facility] , [place] [address] [facility] [address] [place] [address] * MICROALBUMIN/CREATININE RATIO URINE (10/11/2023 2:07 PM EDT) Urine Microalb <12.0 mg/L 10/11/2023 9:04 PM EDT [facility] Urine Creatinine 90.1 mg/dL 10/11/19 24 9:04 PM EDT [facility] Ur Microalb/Creat 024 9:04 PM EDT [facility] Comment: Because the albumin level is below the level of detection in this urine specimen, the laboratory is unable to calculate a reliable albumin/creatinine ratio. Microalbuminuria is unlikely if the urine albumin concentration is less than 20- 30 mg/L in a random specimen. Urine URINE SPECIMEN COLLECTION / Unknown 10/11/2023 2:07 PM EDT 10/11/2023 2:07 PM EDT us Julio Silva MD URINE ORDERABLES Final Result Performing Organization Address [facility] Co de Phone Number [facility] [employer] [facility] [address] , [place] [address] * ALANINE AMINOTRANSFERASE (10/11/2023 10:40 AM EDT) ALT 21 <=41 U/L 10/11/2023 5:3 8 PM EDT [facility] Blood VENOUS BLOOD / Unknown Venipuncture / Unknown 10/11/2023 10:40 AM EDT 10/11/2023 10:40 AM EDT us Julio Silva MD CHEMISTRY ORDERABLES Final Resul t Performing Organization Address City/[facility]/ZIP Co de Phone Number [facility] [address] , [place] [address] * ASPARTATE AMINOTRANSFERASE (10/11/2023 10:40 AM EDT) AST 18 <=40 U/L 10/11/2023 5:3 8 PM EDT [facility] Blood VENOUS BLOOD / Unknown Venipuncture / Unknown 10/11/2023 10:40 AM EDT 10/11/2023 10:40 AM EDT us Julio Silva MD CHEMISTRY ORDERABLES Final Resul t Performing Organization Address City/[facility] Co de Phone Number [facility] [address] [facility] , [address] [place] [phone] * PROTEIN TOTAL-BLOOD (10/11/2023 10:40 AM EDT) Total Protein 7.4 6.4 - 8.3 gm/dL 10/11/2023 5:38 PM EDT [facility] Blood VENOUS BLOOD / Unknown Venipuncture / Unknown 10/11/2023 10:40 AM EDT 10/11/2023 10:40 AM EDT us Julio Silva MD CHEMISTRY ORDERABLES Final Resul t Performing Organization Address [facility] Co de Phone Number [facility] [address] [facility] [address] , [address] [place] [phone] * ALKALINE PHOSPHATASE (10/11/2023 10:40 AM EDT) Alk Phos 55 40 - 129 U/L 10/11/2023 5:38 PM EDT [facility] Blood VENOUS BLOOD / Unknown Venipuncture / Unknown 10/11/2023 10:40 AM EDT 10/11/2023 10:40 AM EDT us Julio Silva MD CHEMISTRY ORDERABLES Final Resul t Performing Organization Address City/[facility]/ZIP Co de Phone Number [facility] [address] [facility] [address] , [place] [address] * BILIRUBIN TOTAL (10/11/2023 10:40 AM EDT) Bili Total 0.4 0.2 - 1.4 mg/dL 10/11/2023 5:38 PM EDT [facility] Blood VENOUS BLOOD / Unknown Venipuncture / Unknown 10/11/2023 10:40 AM EDT 10/11/2023 10:40 AM EDT us Julio Silva MD CHEMISTRY ORDERABLES Final Resul t Performing Organization Address City/[facility]/ZIP Co de Phone Number [facility] [address] [place] [address] , [place] [address] * BILIRUBIN DIRECT (10/11/2023 10:40 AM EDT) Pathologist [facility] Bili Direct <0.2 0.0 - 0.3 mg/dL 10/11/2023 5:38 PM EDT [facility] Blood VENOUS BLOOD / Unknown Venipuncture / Unknown 10/11/2023 10:40 AM EDT 10/11/2023 10:40 AM EDT us Julio Silva MD CHEMISTRY ORDERABLES Final Resul t Performing Organization Address City/[facility] Co de Phone Number [facility] [address] [place] [place] [address] , [place] [address] * (ABNORMAL) PARATHYROID HORMONE INTACT (10/11/2023 10:40 AM EDT) PTH Intact 93.40(H) 15.00 - 65.00 pg/mL 10/11/2023 4:45 PM EDT [facility] Blood VENOUS BLOOD / Unknown Venipuncture / Unknown 10/11/2023 10:40 AM EDT 10/11/2023 10:40 AM EDT Narrative [facility] - 10/11/2023 4:45 PM EDT Intact PTH ? Calcium ? Interpretation ? [...] Silva MD CHEMISTRY ORDERABLES Final Resul t [facility] [address] [place] [address] , [place] [address] * VITAMIN D 25 HYDROXY (10/11/2023 10:40 AM EDT) [facility] Vit D 25 OH 41.8 30.0 - 150.0 ng/mL 10/11/2023 5:01 PM EDT [facility] Comment: Preferred: >= 30 ng/mL Insufficient: 21-29 ng/mL Deficient <= 20 ??ng/mL Possible Toxicity: >150 ng/mL Samples should not be taken from patients receiving therapy with high biotin doses (i.e. > 5 mg/day) until at least 8 hours following the last biotin administration. Blood VENOUS BLOOD / Unknown Venipuncture / Unknown 10/11/2023 10:40 AM EDT 10/11/2023 10:40 AM EDT us Julio Silva MD CHEMISTRY ORDERABLES Final Resul t [facility] [address] [facility] , [address] [place] [phone] * (ABNORMAL) RENAL FUNCTION PANEL (10/11/2023 10:40 AM EDT) Sodium 140 136 - 145 mmol/L 10/11/2023 5:38 PM EDT [facility] Potassium 4.8 3.5 - 5.0 mmol/L 10/11/2023 5:38 PM EDT [facility] Chloride 104 98 - 107 mmol/L 10/11/2023 5:38 PM EDT [facility] Total CO2 27 22 - 29 mmol/L 10/11/2023 5:38 PM EDT [facility] Anion Gap 9 7 - 16 mmol/L 10/11/2023 5:38 PM EDT [facility] Calcium 9.4 8.8 - 10.4 mg/dL 10/11/2023 5:38 PM EDT [facility] Glucose Lvl 153(H) 70 - 99 mg/dL 10/11/2023 5:38 PM EDT [facility] BUN 25(H) 8 - 23 mg/dL 10/11/2023 5:38 PM EDT [facility] Creatinine 1.49(H) 0.67 - 1.30 mg/dL 10/11/2023 5:38 PM EDT [facility] Albumin 4.5 3.2 - 4.6 gm/dL 10/11/2023 5:38 PM EDT [facility] Phosphorus 3.2 2.5 - 4.5 mg/dL 10/11/2023 5:38 PM EDT [facility] eGFR (CKD-EPIcr 2020) 50(L) >=60 mL/min/1.7 3 m2 10/11/2023 5:[address] [facility] Comment:Estimated GFR was ca lculated using the CKD-EPIcr (2020) equation refit without race. The equation is recommended by the National Kidney Foundation - [employer] of Nephrology Task Force. 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
--- OUTSIDE RECORDS SUMMARY | 2024-01-18 14:52 | XMS_ITS | Encounter Summary ---
Author Organization [place] [address] Care Team Providers Care Ict Business Development Manager Name Role Phone Fili Sanchez MD Unavailable [phone] Aba Espinoza MD Primary Care Provider [phone] Reason for Visit * Reason Onset Date Comments Medication Refill 03/08/2023 Encounter Details Date Type Department Care Team (Late st Contact Info) Description 03/08/2023 [facility] [address] [address] Fili Sanchez MD [address] [address] Medication Refill Social History Tobacco Use [...] Refills Last Filled Start Date End Date Insulin [place], Disposable, (BD PATITO 2ND GEN PEN NEEDLE) 32 gauge x 5/32 Misc Needle Use once daily with insulin 100 Each 1 03/09/2023 documented in this encounter Plan of Treatment Upcoming Encounters Date Type Department Care Team (Late st Contact Info) Description 04/26/2024 9:00 AM EDT Office Visit [facility] Nephrology [place] [address] [facility] [address] [address] [place] [address] Julio Silva MD [address] [place] [address] documented as of this encounter Visit Diagnoses Not on filedocumented in this encounter Discontinued Medications Medication Sig Discontinue Reason Start Date End Da te BD PATITO 2ND GEN PEN NEEDLE 32 gauge x 5/32 Misc Needle USE ONCE DAILY TO GIVE INSULIN SHOT Reorder 01/18/2022 03/08/2023 documented as of this encounter Care Teams Ict Business Development Manager Relationship Specialty Start Date End Date Aba Espinoza MD [address] [place] [address] [place] [id number] PCP - General Family Medicine 07/27/16 Fili Sanchez MD [address] [facility] [address] [place] [address] Internal Medicine-Endocrinology, Diabetes & Metabolism 04/11/14 documented as of this encounter
--- OUTSIDE RECORDS SUMMARY | 2024-01-18 14:52 | XMS_ITS | Encounter Summary ---
Author Organization [facility] Address [address] [place] [address] Care Team Providers Care Food Production Worker Name Role Phone Fili Sanchez MD Unavailable [phone] Aba Espinoza MD Primary Care Provider [phone] Reason for Referral * Ultrasound (Routine) - Pending Review Specialty Diagnoses / Procedures Referred By Kadie casillas Referred To Contact Radiology Diagnoses Stage 3a chronic kidney disease (HCC) Procedures US RENAL AND BLADDER Julio Silva MD [address] [place] [address] Phone: tel: fax: Referral ID Status Reason Start Date Expiration Date V isits Requested Visits Authorized [id number] Pending Review 06/23/2023 06/22/2024 1 1 Reason for Visit * Reason Comments New Patient Encounter Details Date Type Department Care Team (Late st Contact Info) Description 06/23/2023 9:15 AM EDT Office Visit [facility] Nephrology [place] [address] [place] [address] Julio Silva MD [address] [place] [address] Stage 3a chronic kidney disease (HCC) (Primary Dx); 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) Social History Tobacco Use Types Packs/Day Years Used Date Smoking Tobacco: Former Cigarettes 2.5 8.1 1 03/02/2012 - 06/25/2016 Smokeless Tobacco: Never Tobacco Cessation:Counseling Given: Yes Comments:3 months ago Alcohol Use Standard Drinks/Week [...] Sign Reading Time Taken Comments Blood Pressure 98/52 06/23/2023 9:14 AM EDT Pulse 69 06/23/2023 9:14 AM EDT Temperature - - Respiratory Rate - - Oxygen Saturation - - Inhaled Oxygen Concentration - - Weight 123.4 kg (272 lb) 06/23/2023 9:14 AM EDT Height 185.4 cm (6' 1 ) 06/23/2023 9:14 AM EDT Body Mass Index 35.89 06/23/2023 9:14 AM EDT documented in this encounter Progress Notes * Julio Silva MD - 06/23/2023 9:15 AM EDT Images from the original note were not included. OFFICE NOTE Referred by Lakisha Gupta APRN Reason for Consult: CKD stage 3a Chief Complaint Patient presents with New Patient History of Present Ilness: This patient is a pleasant 72 y.o. male presented to clinic for evaluation of renal insufficiency. He has DMII since 1999. He had CABG X 5 done in 2021. Hx of ischemic cardiopathy. He denies use of NSAIDs. Denies blood in urine or foamy urine. He denies nausea, vomiitng, chest pain, weight loss, mucosal ulcer, focal weakness. Going for vacation for 3 months. Past Medical History: Diagnosis Date Diabetes mellitus (HCC) High blood pressure Hyperlipidemia Multiple endocrine neoplasia (HCC) Uncontrolled diabetes mellitus with stage 3 chronic kidney disease, without long-term current use of insulin 02/22/2019 Past Surgical History: Procedure Laterality Date BYPASS GRAFT 11/2021 COLONOSCOPY PACEMAKER PLACEMENT Social History Occupational History Not on file Tobacco Use Smoking status: Former Current packs/day: 0.00 Average packs/day: 2.5 packs/day for 8.1 years (20.1 ttl pk-yrs) Types: Cigarettes Start date: 12/31/2012 Quit date: 06/25/2016 Years since quittin.9 Smokeless tobacco: Never Tobacco comments: 3 months ago Vaping Use Vaping status: Never Used Substance and Sexual Activity Alcohol use: Yes Alcohol/week: 6.0 oz Types: 10 Cans of beer per week Comment: A week Drug use: No Sexual activity: Not Currently Partners: Female Family History Problem Relation Age of Onset Heart Attack Mother Diabetes Father Heart Attack Father Allergies: Metformin, Actos [pioglitazone], Epinephrine, and Rosuvastatin Current Medications: Current Outpatient Medications on File Prior to Visit Medication Sig Dispense Refill allopurinoL (ZYLOPRIM) 100 mg Oral Tablet 100 mg daily. TAKES IN EVENING aspirin (ASPIRIN) 81 mg Oral Tablet, Chewable Take 1 Tab by mouth daily. 30 Tab 0 BASAGLAR KWIKPEN U-100 INSULIN 100 unit/mL (3 mL) SubQ Insulin Pen Subcutaneous (Inject under the skin) 26 Units every evening. 15 mL 3 bempedoic acid 180 mg Oral Tablet Take 180 mg by mouth daily. Blood Sugar Diagnostic (ACCU-CHEK GUIDE TEST STRIPS) [facility] Strip Use to test blood sugars daily. Dx Code:E11.65 100 Strip 3 carvediloL (COREG) 25 mg Oral Tablet Take [...] mouth daily. flash glucose sensor (FREESTYLE THIEN 14 DAY SENSOR) [facility] Kit 1 Each by [facility].(Non-Drug; Combo Route) route every 14 days. 3 Kit 0 flash glucose sensor (FREESTYLE THIEN 2 SENSOR) [facility] Kit 1 Each by [facility].(Non- Drug; Combo Route) route every 14 days. 6 Kit 1 FREESTYLE THIEN 2 READER [facility] Use as directed to test BS. DX code: E11.21 1 Each 0 glipiZIDE (GLUCOTROL XL) 5 mg Oral Tablet Extended Rel 24 hr Take 3 tabs with first meal of the [id number] Tablet 2 Insulin [place], Disposable, (BD PATITO 2ND GEN PEN NEEDLE) 32 gauge x 5/32 [facility] Needle Use once daily with insulin 100 Each 1 magnesium oxide 400 mg magnesium Oral Capsule Take by mouth. Take 2 times daily nitroGLYCERIN (NITROLINGUAL) 400 mcg/spray TL [place], Non-Aerosol Place 1 [place] under the tongue every 5 minutes as [...] Tablet 10 mg. Takes one tab MWF carvediloL (COREG) 12.5 mg Oral Tablet 12.5 mg 2 times daily. Take an additonal 6.25 every evening No current facility-administered medications on file prior to visit. Review of Systems: All other 12 ROS were negative except in HPI. Denies diaphoresis, weakness, blurred vision,photophobia, polydipsia,rash, ear pain, nosebleed, hemoptysis, dysuria, flank pain, tremor, tingling, depression, or insomnia. Physical exam: Vitals: 06/23/23 0914 BP: 98/52 BP Location: Right arm Patient Position: Sitting Pulse: 69 Weight: 272 lb (123.4 kg) Height: 6' 1 (1.854 m) Gen: Alert, oriented, not in distress HEENT: oral mucosa moist, atraumatic, sclera and conjunctiva clear Neck: Supple. JVD absent, midline trachea, no tenderness, no mass, no thyromegaly Chest: CTAB, normal airflow, normal effort, symmetrical chest expansion and clear to percussion andpalpation Heart: s1s2 normal, No rub or gallop, Abd: soft, Nt, BS present, no organomegaly Ext: Edema absent, no clubbing or cyanosis INTERNATIONAL REPRESENTATIVE: no focal deficit, alert, oriented Psychiatry: normal mood and affect. No depression Skin no rashes or suspicious lesions, no evidence of bleeding or bruising Database No results found for: FERRITIN No results found for: IRON , UIBC , TRANSSAT Lab Results Component Value Date WBC 9.9 10/27/2022 RBC 3.84 (L) 10/27/2022 HGB 13.4 (L) 10/27/2022 HCT 40.5 10/27/2022 MCV 105.5 (H) 10/27/2022 MCH 34.9 (H) 10/27/2022 MCHC 33.1 10/27/2022 RDW 13.0 10/27/2022 PLT 143 (L) 10/27/2022 MPV 12.4 10/27/2022 Lab Results Component Value Date NA 137 05/30/2023 K 4.8 05/30/2023 CL 99 05/30/2023 CO2 25 05/30/2023 ANIONGAP 13 05/30/2023 CALCIUM 10.3 05/30/2023 GLU 164 (H) 05/30/2023 BUN 29 (H) 05/30/2023 CREATININE 1.46 (H) 05/30/2023 ALBUMIN 4.7 (H) 05/30/2023 PROT 7.7 05/30/2023 LABBILI 0.3 05/30/2023 AST 24 05/30/2023 ALT 20 05/30/2023 ALKPHOS 53 05/30/2023 GFRAFRAM 58 (L) 11/05/2020 GFRNONAFRAM 50 (L) 11/05/2020 No results found for: PHOS Lab Results Component Value Date CHOLESTEROL 128 10/27/2022 TRIG 122 10/27/2022 HDL 50 10/27/2022 LDLCALC 56 10/27/2022 NONHDLC 78 10/27/2022 Lab Results Component Value Date UOWE61KC 31.9 05/30/2023 No results found for: PTHINTACT Assessment and Plan: 1. CKD IIIa: His chronic kidney disease is most likely secondary to atherosclerotic vascular disease + diabetic nephrpathy. Will do urine analysis and quantify urine proteinuria. If UA is active willdo glomerulonephritis work up. Will do renal US to assess the chronicity of kidney disease as well rule out cystic kidney disease. Asked to avoid high salt and high phos diet. Should avoid processed food and NSAIDs. Sr cr is around 1.4 2. BMD (bone mineral disease): Will check PTH, Phos and Vitamin D level. Calcium level Ok. 3. Anemia: HGB 13.4 4. HTN: Fairly well controlled. 5. Edema: Ask to monitor weight. 6. Ischemic cardiomyopathy: s/p CABG X5. On coreg, jardiance, entresto, spironolactone and torsemide. 7. DMII: HGBA1C 8.0. Better control will help nephropathy. Thank you for referring patient to me. Please call me with any question. Julio Silva MD [facility] NEPHROLOGY [place] [address] [facility] [address] [facility] [place] [address] Dept: [phone] Dept Loc: [phone] Loc [facility] Nephrology documented in this encounter Miscellaneous Notes * Patient Instructions - Julio Silva MD - 06/23/2023 9:15 AM EDT Please do all blood and urine tests one week before your next appointment. documented in this encounter Plan of Treatment Upcoming Encounters Date Type Department Care Team (Late st Contact Info) Description 04/26/2024 9:00 AM EDT Office Visit [facility] Nephrology [place] [address] [place] [address] Julio Silva MD [address] [place] [address] documented as of this encounter Results * (ABNORMAL) URINALYSIS (10/11/2023 2:07 PM EDT) UA Color Light Yellow 10/11/2023 7:44 PM EDT [facility] UA Appear Clear Clear 10/11/2023 7:44 PM EDT [facility] UA Glucose 4+ (1000 mg/dL)(A) Negative mg/dL 10/11/2023 7:44 PM EDT [facility] UA Ketones Negative Negative mg/dL 10/11/2023 7:44 PM EDT [facility] UA Blood Negative Negative 10/11/2023 7:44 PM EDT [facility] UA pH 6.5 5.0 - 8.0 pH 10/11/2023 7:44 PM EDT [facility] UA Protein Trace (10 mg/dL)(A) Negative mg/dL 10/11/2023 7:44 PM EDT [facility] UA Urobilinogen Normal <=1 mg/dL 7:44 PM EDT [facility] UA Bili Negative Negative 10/11/2023 7:44 PM EDT [facility] UA Nitrite Negative Negative 10/11/2023 7:44 PM EDT [facility] UA Leuk Est Negative Negative 10/11/2023 7:44 PM EDT [facility] UA Spec Grav 1.020 1.001 - 1.035 no units 10/11/2023 7:44 PM EDT [facility] Comment:Reference range ji d for random specimens only. Urine URINE SPECIMEN COLLECTION, CLEAN CATCH / Unknown 10/11/2023 2:07 PM EDT 10/11/2023 2:07 PM EDT us Julio Silva MD URINE ORDERABLES Final Result [facility] [address] [facility] , [place] [address] * PROTEIN/CREATININE RATIO URINE (10/11/2023 2:07 PM EDT) Urine Protein 8.9 mg/dL 10/11/2023 9:04 PM EDT [facility], [facility] Urine Creatinine 90.1 mg/dL 10/11/2023 9:04 PM EDT [facility], [facility] Ur Protein/Creat 0.10 <=0.14 mg/mg 10/11/2023 9:04 PM EDT [facility] Urine URINE SPECIMEN COLLECTION / Unknown 10/11/2023 2:07 PM EDT 10/11/2023 2:07 PM EDT Julio Silva MD URINE ORDERABLES Final Result Performing Organization Address [facility]/ZIP Co de Phone Number [address] [place] [address] [facility] [address] [place], [place] [id number] * MICROALBUMIN/CREATININE RATIO URINE (10/11/2023 2:07 PM EDT) [facility] Urine Microalb <12.0 mg/L 10/11/2023 9:04 PM EDT [facility] Urine Creatinine 90.1 mg/dL 10/11/19 24 9:04 PM EDT [facility] Ur Microalb/Creat 024 9:04 PM EDT [facility] Comment: Because the albumin level is [...] URINE ORDERABLES Final Result Performing Organization Address [facility] Co de Phone Number [facility] [address] [facility] , [place] [phone] * (ABNORMAL) PARATHYROID HORMONE INTACT (10/11/2023 10:40 AM EDT) [facility] PTH Intact 93.40(H) 15.00 - 65.00 pg/mL 10/11/2023 4:45 PM EDT [facility] Blood VENOUS BLOOD / Unknown Venipuncture / Unknown 10/11/2023 10:40 AM EDT 10/11/2023 10:40 AM EDT Narrative [facility] - 10/11/2023 4:45 PM EDT Intact PTH [...] Silva MD CHEMISTRY ORDERABLES Final Resul t [facility] [address] [facility] , [place] [address] * VITAMIN D 25 HYDROXY (10/11/2023 10:40 AM EDT) Pathologist [facility] Vit D 25 OH 41.8 30.0 - 150.0 ng/mL 10/11/2023 5:01 PM EDT [facility] Comment: Preferred: >= 30 ng/mL Insufficient: 21-29 [...] ORDERABLES Final Resul t [facility] [address] [facility] , [address] [place] [phone] * (ABNORMAL) RENAL FUNCTION PANEL (10/11/2023 10:40 [...] - 4.5 mg/dL 10/11/2023 5:38 PM EDT [facility] [employer], [facility] eGFR (CKD-EPIcr 2020) 50(L) >=60 mL/min/1.7 3 m2 10/11/2023 5:38 PM EDT [facility] Comment:Estimated GFR was ca lculated using the CKD-EPIcr (2020) equation refit without race. The equation is recommended by the National Kidney Foundation - [place] [employer] of Nephrology Task Force. Blood VENOUS BLOOD / Unknown Venipuncture / Unknown 10/11/2023 10:40 AM EDT 10/11/2023 10:40 AM EDT us Julio Silva MD CHEMISTRY ORDERABLES Final Resul t [facility] [employer] [facility] [address] [facility] [place] [address] [facility] [address] [place] [address] * US RENAL AND BLADDER (06/27/2023 1:27 PM EDT) Anatomical Region Laterality Modality Abdomen, Pelvis Ultrasound 06/27/2023 1:27 PM EDT Impressions 06/27/2023 1:31 PM EDT Bladder debris, otherwise normal. - Note: Radiology results need to be interpreted within a comprehensive clinical context. ??If you have questions about the radiology report, please contact the office of the ordering clinician. Narrative 06/27/2023 1:31 PM EDT US KIDNEYS AND BLADDER, ??06/27/2023 1:27 PM ?? CLINICAL HISTORY: ??N18.31-Chronic kidney disease, stage 3a (HCC)-ICD-10-CM. COMPARISON: ??None. PROCEDURE COMMENTS: Routine sonographic evaluation of the kidneys and bladder with termite control representative images and cnc operator programmer notes sent to PACS for radiologist review. FINDINGS: ?? RIGHT: ??11.8 x 6.3 x 6.1 cm. ??No hydronephrosis, solid-appearing mass, or shadowing stone. LEFT: 11.8 x 4.9 x 4.8 cm. ?? No hydronephrosis, solid-appearing mass, or shadowing stone. 1.2 cm left renal cyst. PELVIS: ??Layering bladder debris. Procedure Note Elan Vu MD - 06/27/2023 US KIDNEYS AND BLADDER, 06/27/2023 1:27 PM CLINICAL HISTORY: N18.31-Chronic kidney disease, stage 3a(HCC)-ICD-10-CM. COMPARISON: None. PROCEDURE COMMENTS: Routine sonographic evaluation of the kidneys andbladder with termite control representative images and cnc operator programmer notes sent to PACS forradiologist review. FINDINGS: RIGHT: 11.8 x 6.3 x 6.1 cm. No hydronephrosis, solid-appearing mass,or shadowing stone. LEFT: 11.8 x 4.9 x 4.8 cm. No hydronephrosis, solid-appearing mass, or shadowing stone. 1.2 cm left renal cyst. PELVIS: Layering bladder debris. IMPRESSION: Bladder debris, otherwise normal. - Note: Radiology results need to be interpreted within a comprehensiveclinical context. If you have questions about the radiology report, please contactthe office of the ordering clinician. 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
--- OUTSIDE RECORDS SUMMARY | 2024-01-18 14:52 | XMS_ITS | Encounter Summary ---
Author Organization [facility] [place] [address] Care Team Providers Care Aluminum Polisher Name Role Phone Fili Sanchez MD Unavailable [phone] Aba Espinoza MD Primary Care Provider [phone] Encounter Details Date Type Department Care Team (Latest Contact Info) Description 05/27/2023 Travel Social History Tobacco Use Types Packs/Day [...] Description 04/26/2024 9:00 AM EDT Office Visit [facility] Nephrology [place] [address] [facility] [place] [address] Julio Silva MD [address] [place] [address] documented as of this encounter Visit Diagnoses Not on filedocumented in this encounter Care Teams Aluminum Polisher Relationship Specialty Start Date End Date Aba Espinoza MD [address] [place] [address] [place] [address] [place] [phone] PCP - General Family Medicine 07/27/16 Fili Sanchez MD [address] [phone] Internal Medicine-Endocrinology, Diabetes & Metabolism 04/11/14 documented as of this encounter
--- OUTSIDE RECORDS SUMMARY | 2024-01-18 14:52 | XMS_ITS | Encounter Summary ---
Author Organization [place] [address] Care Team Providers Care Medical Office Receptionist Name Role Phone Fili Sanchez MD Unavailable [phone] Aba Espinoza MD Primary Care Provider [phone] Encounter Details Date Type Department Care Team (Latest Contact Info) Description 02/23/2023 12:10 PM EST - 02/23/2023 11:59 PM EST Hospital Encounter [facility] [address] [place] [address] Encounter for long-term (current) use of medications; Type 2 diabetes mellitus with diabetic nephropathy, with long-term current use of insulin (HCC); Vitamin D deficiency Discharge Disposition: Home or Self Care Social [...] by mouth daily. 30 Tab 0 04/11/2014 Blood Sugar Diagnostic (ACCU-CHEK GUIDE TEST STRIPS) [facility] Strip Use to test blood sugars daily. Dx Code:E11.65 100 Strip 3 11/12/2020 carvediloL (COREG) 25 mg Oral Tablet Take 25 mg by mouth 2 times daily. escitalopram oxalate (LEXAPRO) 20 mg Oral Tablet Take by mouth daily. flash glucose sensor (FREESTYLE THIEN 2 SENSOR) [facility] Kit 1 Each by [facility].(Non-Drug; Combo Route) route every 14 days. 6 Kit 1 12/18/2021 FREESTYLE THIEN 2 READER [facility] Use as directed to test BS. DX code: E11.21 1 Each 12/18/2021 magnesium oxide 400 mg magnesium Oral Capsule Take by mouth. Take 2 times daily nitroGLYCERIN (NITROLINGUAL) 400 mcg/spray TL [place], Non-Aerosol Place 1 [place] under the tongue every 5 minutes as needed for Chest pain. rOPINIRole (REQUIP) 0.5 mg Oral Tablet Take 0.5 mg by mouth. Takes once daily at night 01/30/2021 rosuvastatin (CRESTOR) 20 mg Oral Tablet Take 20 mg by mouth daily. 07/27/2022 sacubitriL-valsa rtan (ENTRESTO) 24-26 mg Oral Tablet Take 1 Tab by mouth 2 times daily. spironolactone (ALDACTONE) 25 mg Oral Tablet Take 25 mg by mouth daily. torsemide (DEMADEX) 10 mg Oral Tablet 10 mg. Takes one tab MWF 05/25/2021 carvediloL (COREG) 12.5 mg Oral Tablet 12.5 mg 2 times daily. Take an additonal 6.25 every evening 03/26/2022 4 flash glucose sensor (FREESTYLE THIEN 14 DAY SENSOR) [facility] Kit 1 Each by [facility].(Non-Drug; Combo Route) route every 14 days. 3 Kit 12/16/2021 4 documented as of this encounter Discharge Disposition Disposition Code Departure Means Destination Home or Self Care documented in this encounter Plan of Treatment Upcoming Encounters Date Type Department Care Team (Late st Contact Info) Description 04/26/2024 9:00 AM EDT Office Visit [facility] Nephrology [place] [address] [place] [address] Julio Silva MD [address] [place] [address] documented as of this encounter Procedures Procedure Name Priority Date/Time Associated Diagnosis Comments VITAMIN D 25 HYDROXY Routine 02/23/2023 12:23 PM EST Vitamin D deficiency THYROID STIMULATING HORMONE Routine 02/23/2023 12:23 PM EST Type 2 diabetes mellitus with diabetic nephropathy, with long-term current use of insulin (HCC) HEMOGLOBIN A1C Routine 02/23/2023 12:23 PM EST Type 2 diabetes mellitus with diabetic nephropathy, with long-term current use of insulin (HCC) VITAMIN B12 LEVEL Routine 02/23/2023 12: 23 PM EST Encounter for long-term (current) use of medications COMPREHENSIVE METABOLIC PANEL Routine 02/23/2023 12:23 PM EST Encounter for long-term (current) use of medications documented in this encounter Results * (ABNORMAL) VITAMIN D 25 HYDROXY (02/23/2023 12:23 PM EST) Vit D 25 OH 20.6(L) 30.0 - 150.0 ng/mL 02/23/2023 7:08 PM EST [facility] [employer] Comment: Preferred: >= 30 ng/mL Insufficient: 21-29 ng/mL Deficient <= 20 ??ng/mL Possible Toxicity: >150 ng/mL Samples should not be taken from patients receiving therapy with high biotin doses (i.e. > 5 mg/day) until at least 8 hours following the last biotin administration. Blood VENOUS BLOOD / Unknown Venipuncture / Unknown 02/23/2023 12:23 PM EST 02/23/2023 12:23 PM EST Lakisha Gupta WILDLIFE CONSERVATIONIST CHEMISTRY ORDERABLES Final R esult Performing Organization Address [facility] Co de Phone Number [facility] [address] , [place] [phone] * VITAMIN B12 LEVEL (02/23/2023 12:23 PM EST) [facility] Vitamin B12 339 232 - 1,245 pg/mL 02/23/2023 7:09 PM EST [facility] [employer] [address] [employer] [facility] Blood VENOUS BLOOD / Unknown Venipuncture / Unknown 02/23/2023 12:23 PM EST 02/23/2023 12:23 PM EST Narrative [facility] [employer] [address] [employer] [facility] - 02/23/2023 7:09 PM EST Ingestion of pratik doses of biotin (>5 mg/day) taken within 8 hours of drawing blood sample can interfere with this immunoassay test. Lakisha Gupta APRN CHEMISTRY ORDERABLES Final [facility] Performing Organization Address [facility] de Phone Number [facility] [employer] , [place] [address] * THYROID STIMULATING HORMONE (02/23/2023 12:23 PM EST) [facility] TSH 2.750 0.270 - 4.200 mcIU/mL 02/23/2023 7:00 PM EST [facility] [employer] [address] [employer] [facility] Blood VENOUS BLOOD / Unknown Venipuncture / Unknown 02/23/2023 12:23 PM EST 02/23/2023 12:23 PM EST Narrative [facility] - 02/23/2023 7:00 PM EST Ingestion of pratik doses of biotin (>5 mg/day) taken within 8 hours of drawing blood sample can interfere with this immunoassay test. Lakisha Gupta APRN CHEMISTRY ORDERABLES Final [facility] Performing Organization Address [facility] Co de Phone Number [facility] [address] [facility] , [place] [address] * (ABNORMAL) HEMOGLOBIN A1C (02/23/2023 12:23 PM EST) [facility] Hgb A1C 9.2(H) 4.2 - 5.6 % 02/23/2023 5:12 PM EST [facility] Est. Avg Glucose 217 mg/dL 02/23/2023 5:12 PM EST [facility] Blood VENOUS BLOOD / Unknown Venipuncture / Unknown 02/23/2023 12:23 PM EST 02/23/2023 12:23 PM EST Narrative [facility] - 02/23/2023 5:12 PM EST REFERENCE RANGE: Normal: 4.0-5.6% Pre-diabetes: 5.7-6.4% Provisional diagnosis of diabetes: >6.4% Hgb F>10% and anything which shortens red cell survival, such as hemolytic anemia, or unstable hemoglobin variants such as HbSS, HbSC, or HbCC, will lower the HbA1c value associated with a given level of glycemic control. ? us Lakisha Gupta WILDLIFE CONSERVATIONIST CHEMISTRY ORDERABLES Final R esult [facility] [address] [facility] , [address] [place] [phone] * (ABNORMAL) COMPREHENSIVE METABOLIC PANEL (02/23/2023 12:23 PM EST) Sodium 138 136 - 145 mmol/L 02/23/2023 7:00 PM EST [facility] Potassium 4.4 3.5 - 5.0 mmol/L 02/23/2023 7:00 PM EST [facility] Chloride 99 98 - 107 mmol/L 02/23/2023 7:00 PM EST [facility] Total CO2 27 22 - 29 mmol/L 02/23/2023 7:00 PM EST [facility] Anion Gap 12 7 - 16 mmol/L 02/23/2023 7:00 PM EST [facility] Calcium 9.7 8.8 - 10.4 mg/dL 02/23/2023 7:00 PM EST [facility] Glucose Lvl 215(H) 82 - 100 mg/dL 02/23/2023 7:00 PM EST [facility] BUN 29(H) 8 - 23 mg/dL 02/23/2023 7:00 PM EST [facility] Creatinine 1.45(H) 0.67 - 1.30 mg/dL 02/23/2023 7:00 PM EST [facility] Albumin 4.2 3.2 - 4.6 gm/dL 02/23/2023 7:00 PM EST [facility] Total Protein 7.3 6.4 - 8.3 gm/dL 02/23/2023 7:00 PM EST [facility] Bili Total 0.5 0.2 - 1.4 mg/dL 02/23/2023 7:00 PM EST [facility] ALT 20 <=41 U/L 02/23/2023 7:00 PM EST [facility] AST 17 <=40 U/L 02/23/2023 7:00 PM EST [facility] Alk Phos 76 40 - 129 U/L 02/23/2023 7:00 PM EST [facility] eGFR (CKD-EPIcr 2020) 52(L) >=60 mL/min/1.7 3 m2 02/23/2023 7:00 PM EST [facility] Comment:Estimated GFR was ca lculated using the CKD-EPIcr (2020) equation refit without race. The equation is recommended by the National Kidney [employer] - [place] [employer] of Nephrology Task Force. Blood VENOUS BLOOD / Unknown Venipuncture / Unknown 02/23/2023 12:23 PM EST 02/23/2023 12:23 PM EST Lakisha Gupta APRN CHEMISTRY ORDERABLES Final R esult [facility] [address] [facility] , [place] [address] [facility] [address] [place] [phone] documented in this encounter Visit Diagnoses Diagnosis Encounter for long-term (current) use of medications Encounter for long-term (current) use of other medications Type 2 diabetes mellitus with diabetic nephropathy, with long-term current use of insulin (HCC) Vitamin D deficiency Unspecified vitamin D deficiency documented in this encounter Care Teams Medical Office Receptionist Relationship Specialty Start Date End Date Aba Espinoza MD [address] [place] [address] [place] [phone] PCP - General Family Medicine 07/27/16 Fili Sanchez MD [address] [address] Internal Medicine-Endocrinology, Diabetes & Metabolism 04/11/14 documented as of this encounter
--- OUTSIDE RECORDS SUMMARY | 2024-01-18 14:52 | XMS_ITS | Encounter Summary ---
Author Organization [place] [address] Care Team Providers Care Caseworker Name Role Phone Fili Sanchez MD Unavailable [phone] Aba Espinoza MD Primary Care Provider [phone] Reason for Visit * Reason Onset Date Comments Medication Refill 03/08/2023 Encounter Details Date Type Department Care Team (Late st Contact Info) Description 03/09[facility]2023 [facility] [address] [facility] [address] [place] [phone] Dat Onofre MD [address] [place] [address] Medication Refill Social History Tobacco Use Types [...] encounter Miscellaneous Notes * Telephone Encounter - Trish Platt RMA - 04/25/2023 10:59 AM EDT PA for Ozempic 0.5 mg Pen was completed and approved. * Telephone Encounter - Jackie Adhikari MA - 03/09/2023 7:23 AM ESTFrom: Dane [facility] Nightingale To: Aba Espinoza Sent: 03/08/2023 9:05 PM EST Subject: Medication Renewal Request Refills have been requested for the following medications: Other - Ozempic, If you would [facility] script needs your ok to to explain why i need it. Also the needles for the basaglar. Thank you !!!!!!! Preferred pharmacy: [facility] [place] [address] Delivery method: Mail Medication renewals requested in this message routed separately: BD PATITO 2ND GEN PEN NEEDLE 32 gauge x 5/32 Misc Needle [Fili Sanchez] documented in this encounter Plan of Treatment Upcoming Encounters Date Type Department Care Team (Late st Contact Info) Description 04/26/2024 9:00 AM EDT Office Visit [facility] Nephrology [place] [address] [facility] [address] [place] [address] Julio Silva MD [address] [place] [address] documented as of this encounter Visit Diagnoses Not on filedocumented in this encounter Care Teams Caseworker Relationship Specialty Start Date End Date Aba Espinoza MD [address] [place] [address] [place] [phone] PCP - General Family Medicine 07/27/16 Fili Sanchez MD [address] [facility] [address] [place] [address] Internal Medicine-Endocrinology, Diabetes & Metabolism 04/11/14 documented as of this encounter
--- OUTSIDE RECORDS SUMMARY | 2024-01-18 14:52 | XMS_ITS | Encounter Summary ---
Author Organization [facility] [place] [address] Care Team Providers Care Operations Examiner Name Role Phone Fili Sanchez MD Unavailable [phone] Aba Espinoza MD Primary Care Provider [phone] Encounter Details Date Type Department Care Team (Latest Contact Info) Description 07/03/2023 Travel Social History Tobacco Use Types Packs/Day [...] Description 04/26/2024 9:00 AM EDT Office Visit [facility] Nephrology [place] [address] [facility] [place] [address] Julio Silva MD [address] [place] [address] documented as of this encounter Visit Diagnoses Not on filedocumented in this encounter Care Teams Operations Examiner Relationship Specialty Start Date End Date Aba Espinoza MD [address] [place] [phone] PCP - General Family Medicine 07/27/16 Fili Sanchez MD [address] [address] Internal Medicine-Endocrinology, Diabetes & Metabolism 04/11/14 documented as of this encounter
--- OUTSIDE RECORDS SUMMARY | 2024-01-18 14:52 | XMS_ITS | Encounter Summary ---
Author [place] [address] Care Team Providers Care Nuclear Design Engineer Name Role Phone Fili Sanchez MD Unavailable [phone] Aba Espinoza MD Primary Care Provider [phone] Reason for Referral * Medication Prior Authorization - Closed Specialty Diagnoses / Procedures Referred By Kadie casillas Referred To Contact Diagnoses Type 2 diabetes mellitus with diabetic nephropathy, with long-term current use of insulin (HCC) Dat Onofre MD [address] [place] [address] Phone: tel: fax: Referral ID Status Reason Start Date Expiration Date Visits Re quested Visits Authorized [id number] Closed 1 1 * Consultation (Routine) - Authorization Not Needed Specialty Diagnoses / Procedures Referred By Kadie casillas Referred To Contact Podiatry Diagnoses Type 2 diabetes mellitus with microalbuminuria, with long-term current use of insulin (HCC) Cellulitis of toe of left foot Dat Onofre MD [address] [place] [address] Phone: tel: fax: [facility] [place] [address] [place] [address] Phone: tel: fax: Referral ID Status Reason Start Date Expiration Date Visits Requested Visits Authorized [id number] Authorization Not Needed 06/01/2023 05/31/2024 99 99 Reason for Visit * Reason Comments New Patient Diabetes * Consultation (Routine) - Closed Specialty Diagnoses / Procedures Referred By Kadie casillas Referred To Contact Internal Medicine-Endocrinology, Diabetes & Metabolism / Diabetes Services Diagnoses FU DM, type 2-4 months per 04/05/22 lw Procedures DM FOLLOW UP Aba Espinoza MD [address] [place] [address] Phone: tel: fax: Fili Sanchez MD [address] [facility] [address] [place] [phone] Phone: tel: fax: Referral ID Status Reason Start Date Expiration Date Visits Re quested Visits Authorized [id number] Closed 08/04/2022 08/04/2023 99 99 Encounter Details Date Type Department Care Team (Late st Contact Info) Description 06/01/2023 10:15 AM EDT Office Visit [facility] [address] [place] [id number] Dat Onofre MD [address] [place] [address] Type 2 diabetes mellitus with microalbuminuria, with long-term current use of insulin (HCC) (Primary Dx); Type 2 diabetes mellitus with diabetic nephropathy, with long-term current use of insulin (HCC); Hypertension associated with diabetes (HCC); Hyperlipidemia associated with type 2 diabetes mellitus (HCC); Cellulitis of toe of right foot Social History Tobacco Use Types Packs/Day Years Used Date Smoking Tobacco: Former Cigarettes 2.5 8 1 03/02/2012 - 06/25/2016 Smokeless Tobacco: Never Tobacco Cessation:Counseling Given: Not [...] Sign Reading Time Taken Comments Blood Pressure 118/70 06/01/2023 10:02 AM EDT Pulse 66 06/01/2023 10:02 AM EDT Temperature - - Respiratory Rate 16 06/01/2023 10:02 AM EDT Oxygen Saturation - - Inhaled Oxygen Concentration - - Weight 124.7 kg (275 lb) 06/01/2023 10:02 AM EDT Height 185.4 cm (6' 1 ) 06/01/2023 10:02 AM EDT Body Mass Index 36.28 06/01/2023 10:02 AM EDT documented in this encounter Ordered Prescriptions Prescription Sig Dispense Quantity Refills Last Filled Start Date End Date semaglutide (OZEMPIC) 1 mg/dose (4 mg/3 mL) SubQ Pen InjectorIndicatio ns:Type 2 diabetes mellitus with diabetic nephropathy, with long-term current use of insulin (HCC) Subcutaneous (Inject under the skin) 1 mg once a week. 3 mL 11 06/01/2023 cephALEXin (KEFLEX) 500 mg Oral Capsule Take 1 Capsule by mouth every 6 hours for 14 days. 56 Capsule 06/01/2023 documented in this encounter Progress Notes * Rosalee Bowens MA - 06/01/2023 10:15 AM EDT Rianna downloaded. Pharmacy verified. Refills not appropriate at this time. INFORMATION SYSTEMS PROJECT MANAGER. Medication reconciliation complete. * Dat Onofre MD - 06/01/2023 10:15 AM EDT Subjective Subjective: Patient ID: Dane Ray is a 72 y.o. male. Chief Complaint Patient presents with New Patient Diabetes HPI: Dane was seen as new patient for type 2 diabetes. He was diagnosed in 2003 and has been working with Dr. Sanchez and Loly but he requested switch to me. At his last visit he was started on Ozempic and has done well in general with it. He reports some falling problems and neuropathy. He had EMG recently done with findings consistent with diabetic polyneuropathy. He is scheduled to see Dr. Silva for neurology consultation for this and his back pain. He reports left foot swelling and redness in fifth toe recently. PMSFH: Past Medical History: Diagnosis Date Diabetes [...] Outpatient Medications Marked as Taking for the 06/01/23 encounter (Office Visit) with Dat Onofre MD Medication Sig Dispense Refill allopurinoL [...] flash glucose sensor (FREESTYLE RIANNA 2 SENSOR) [facility] Kit 1 Each by [facility].(Non- Drug; Combo Route) route every 14 days. 6 Kit 1 FREESTYLE RIANNA 2 READER [facility] Use as directed to test BS. DX code: E11.21 1 Each 0 glipiZIDE (GLUCOTROL XL) 5 mg Oral Tablet Extended Rel 24 hr Take 3 tabs with first meal of the [id number] Tablet 2 Insulin [place], Disposable, (BD PATITO 2ND GEN PEN NEEDLE) 32 gauge x [facility] Needle Use once daily with insulin 100 Each 1 magnesium oxide 400 mg magnesium Oral Capsule Take by mouth. Take 2 times daily nitroGLYCERIN (NITROLINGUAL) 400 mcg/spray TL [place], Non-Aerosol Place 1 [place] under the tongue every 5 minutes as needed for Chest pain. rOPINIRole (REQUIP) 0.5 mg Oral Tablet Take 0.5 mg by mouth. Takes once daily at night sacubitriL-valsartan (ENTRESTO) 24-26 mg Oral Tablet Take 1 Tab by mouth 2 times daily. [DISCONTINUED] semaglutide 0.25 mg or 0.5 mg (2 mg/3 mL) SubQ Pen Injector Subcutaneous (Inject under the skin) 0.5 mg once a week. 9 mL 2 spironolactone (ALDACTONE) 25 mg Oral Tablet Take 25 mg by mouth daily. torsemide (DEMADEX) 10 mg Oral Tablet 10 mg. Takes one tab MWF Objective: DATA REVIEW: LABS Recent and historical labs reviewed in chart, results discussed with patient. DIABETES CGM TIR 76%, TAR 24%, TBR 0% AVG 160, GMI -%, GV 21.5% Pattern: Good nocturnal control with variable postprandial hyperglycemia. Lab Results Component Value Date HGBA1C 8.0 (H) 05/30/2023 HGBA1C 9.2 (H) 02/23/2023 HGBA1C 8.2 (H) 10/27/2022 RENAL Lab Results Component Value Date CREATININE 1.46 (H) 05/30/2023 Lab Results Component Value Date MICROALBCR 36 (H) 10/27/2022 LIPIDS No components found for: LDL Lab Results Component Value Date LDLCALC 56 10/27/2022 Lab Results Component Value Date LDLDIRECT 61 06/27/2020 Lab Results Component Value Date HDL 50 10/27/2022 Lab Results Component Value Date TRIG 122 10/27/2022 Lab Results Component Value Date CHOLESTEROL 128 10/27/2022 OTHER Lab Results Component Value Date TSH 2.750 02/23/2023 FREET4 1.27 04/16/2014 Lab Results Component Value Date FUCX08IA 31.9 05/30/2023 Lab Results Component Value Date [id number] 867 05/30/2023 Vitals: 06/01/23 1002 BP: 118/70 Pulse: 66 Resp: 16 Weight: 275 lb (124.7 kg) Height: 6' 1 (1.854 m) Body mass index is 36.28 kg/m??. Physical Exam Vitals and nursing note reviewed. Cardiovascular: Pulses: Dorsalis pedis pulses are 1+ on the right side and 1+ on the left side. Posterior tibial pulses are 1+ on the right side and 1+ on the left side. Feet: Right foot: Protective Sensation: 10 sites tested. 0 sites sensed. Skin integrity: Erythema, warmth and callus present. Toenail Condition: Right toenails are abnormally thick. Fungal disease present. Left foot: Protective Sensation: 10 sites tested. 0 sites sensed. Skin integrity: Callus present. Toenail Condition: Left toenails are abnormally thick. Fungal disease present. Comments: Right fifth toe is red and swollen. There is a callous and blister forming on the lateralaspect of the foot behind the metatarsal joint. Thick callous on ball of foot. Assessment and Plan: Diagnoses and all orders for this visit: Type 2 diabetes mellitus with microalbuminuria, with long-term current use of insulin (HCC) (Chronic) - AMB REFERRAL TO PODIATRY - MA CONTINUOUS GLUCOSE MONITORING ANALYSIS I&R Type 2 diabetes mellitus with diabetic nephropathy, with long-term current use of insulin ([facility]) (Chronic) - semaglutide (OZEMPIC) 1 mg/dose (4 mg/3 mL) SubQ Pen Injector; Subcutaneous (Inject under the skin) 1 mg once a week. Dispense: 3 mL; Refill: 11 - MA CONTINUOUS GLUCOSE MONITORING ANALYSIS I&R Hypertension associated with diabetes (HCC) (Chronic) Hyperlipidemia associated with type 2 diabetes mellitus (HCC) (Chronic) Cellulitis of toe of right foot - AMB REFERRAL TO PODIATRY Other orders - cephALEXin (KEFLEX) 500 mg Oral Capsule; Take 1 Capsule by mouth every 6 hours for 14 days. Dispense: 56 Capsule; Refill: 0 Assessment and Recommendations: 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 His HbA1c is down to 8.0% since starting Ozempic. I recommend increasing dose to 1 mg weekly. He will continue other medications as before. Cellulitis or right foot, mostly involving fifth toe. I recommend treatment with keflex 500 mg every six hours for 14 days. I'm referring him to podiatry for further care and follow up management of diabetic foot disease. Hypertension controlled. Hyperlipidemia treated with rosuvastatin. Managed by Dr. Quan. Return to office: Return in about 3 months (around 08/31/2023) for Type 2 diabets. 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, with long-term current use of insulin (HCC) Ordered: 06/01/2023 Scheduled Referrals Name Type Priority Associated Diagnoses Orde r Schedule AMB REFERRAL TO PODIATRY Outpatient Referral Routine Type 2 diabetes mellitus with microalbuminuria, with long-term current use of insulin (HCC) Cellulitis of toe of right foot Ordered: 06/01/2023 documented as of this encounter Visit Diagnoses [...] associated with type 2 diabetes mellitus (HCC) Cellulitis of toe of right foot Cellulitis and abscess of toe, unspecified documented in this encounter Discontinued Medications Medication Sig Discontinue Reason Start Date End Da te semaglutide 0.25 mg or 0.5 mg (2 mg/3 mL) SubQ Pen InjectorIndications:T ype 2 diabetes mellitus with microalbuminuria, with long-term current use of insulin (HCC) Subcutaneous (Inject under the skin) 0.5 mg once a week. Dose adjustment 05/05/2023 06/01/2023 documented as of this encounter Historical Medications * This list may reflect changes made after this encounter. bempedoic acid 180 mg Oral Tablet Take 180 mg by mouth daily. 05/06/2023 added in this encounter Care Teams Nuclear Design Engineer Relationship Specialty Start Date End Date Aba Espinoza MD [address] [place] [phone] PCP - General Family Medicine 07/27/16 Fili Sanchez MD [address] [address] Internal Medicine-Endocrinology, Diabetes & Metabolism 04/11/14 documented as of this encounter
--- OUTSIDE RECORDS SUMMARY | 2024-01-18 14:52 | XMS_ITS | Encounter Summary ---
Author Organization [place] [address] Care Team Providers Care Accreditation Specialist Name Role Phone Fili Sanchez MD Unavailable [phone] Aba Espinoza MD Primary Care Provider [phone] Encounter Details Date Type Department Care Team (Latest Contact Info) Description 05/30/2023 11:10 AM EDT - 05/30/2023 11:59 PM EDT Hospital Encounter NOEMI [facility] [address] [place] [address] Encounter for long-term (current) use of medications; Type 2 diabetes mellitus with microalbuminuria, with long-term current use of insulin (HCC); [...] Blood Sugar Diagnostic (ACCU-CHEK GUIDE TEST STRIPS) [facility] Strip Use to test blood sugars daily. [...] flash glucose sensor (FREESTYLE THIEN 2 SENSOR) [facility] Kit 1 Each by [facility].(Non-Drug; Combo Route) route every 14 days. 6 Kit 1 12/18/2021 FREESTYLE THIEN 2 READER [facility] Use as directed to test BS. DX code: E11.21 1 Each 12/18/2021 magnesium oxide 400 mg magnesium Oral Capsule Take by mouth. Take 2 times daily nitroGLYCERIN (NITROLINGUAL) 400 mcg/spray TL [place], Non-Aerosol Place 1 [place] under the tongue every 5 minutes as [...] mg. Takes one tab MWF 05/25/2021 BASAGLAR MARYCARMEN U-100 INSULIN 100 unit/mL (3 mL) SubQ Insulin Pen Subcutaneous (Inject under the skin) 26 Units every evening. 15 mL 3 02/25/2023 4 carvediloL (COREG) 12.5 mg Oral Tablet 12.5 mg 2 times daily. Take an additonal 6.25 every evening 03/26/2022 4 flash glucose sensor (FREESTYLE THIEN 14 DAY SENSOR) [facility] Kit 1 Each by [facility].(Non-Drug; Combo Route) route every 14 days. 3 Kit 12/16/2021 4 glipiZIDE (GLUCOTROL XL) 5 mg Oral Tablet Extended Rel 24 hr Take 3 tabs with first meal of the day 270 Tablet 2 02/25/2023 4 Insulin [place], Disposable, (BD PATITO 2ND GEN PEN NEEDLE) 32 gauge x /32 Misc Needle Use once daily with insulin 100 Each 1 03/09/2023 4 documented as of this encounter Discharge Disposition Disposition Code Departure Means Destination Home or Self Care documented in this encounter Plan of Treatment Upcoming Encounters Date Type Department Care Team (Late st Contact Info) Description 04/26/2024 9:00 AM EDT Office Visit [facility] Nephrology [place] [address] [facility] [place] [address] Julio Silva MD [address] [place] [address] documented as of this encounter Procedures Procedure Name Priority Date/Time Associated Diagnosis Comments FRUCTOSAMINE Routine 05/30/2023 11:11 AM EDT Type 2 diabetes mellitus with microalbuminuria, with long-term current use of insulin (HCC) VITAMIN D 25 HYDROXY Routine 05/30/2023 11:11 AM EDT Vitamin D deficiency HEMOGLOBIN A1C Routine 05/30/2023 11:11 AM EDT Type 2 diabetes mellitus with microalbuminuria, with long-term current use of insulin (HCC) VITAMIN B12 LEVEL Routine 05/30/2023 11: 11 AM EDT Encounter for long-term (current) use of medications COMPREHENSIVE METABOLIC PANEL Routine 05/30/2023 11:11 AM EDT Encounter for long-term (current) use of medications documented in this encounter Results * VITAMIN D 25 HYDROXY (05/30/2023 11:11 AM EDT) Vit D 25 OH 31.9 30.0 - 150.0 ng/mL 05/30/2023 4:03 PM EDT PREFERRED [facility] Comment: Preferred: >= 30 ng/mL Insufficient: 21-29 [...] Lakisha Gupta APRN CHEMISTRY ORDERABLES Final R [facility] Performing Organization Address [facility] de Phone Number [facility] [address] [place] [address] , [place] [address] * VITAMIN B12 LEVEL (05/30/2023 11:11 AM EDT) Pathologist [facility] Vitamin B12 867 232 - 1,245 pg/mL 05/30/2023 4:03 PM EDT [facility] Blood VENOUS BLOOD / Unknown Venipuncture / Unknown 05/30/2023 11:11 AM EDT 05/30/2023 11:11 AM EDT Narrative [facility] - 05/30/2023 4:03 PM EDT Ingestion of pratik doses of biotin (>5 mg/day) taken within 8 hours of drawing blood sample can interfere with this immunoassay test. Lakisha Gupta APRN CHEMISTRY ORDERABLES Final R esult Performing Organization Address [facility] Co de Phone Number [facility] [address] [place] [address] , [place] [address] * (ABNORMAL) HEMOGLOBIN A1C (05/30/2023 11:11 AM EDT) Pathologist [facility] Hgb A1C 8.0(H) 4.2 - 5.6 % 05/30/2023 3:54 PM EDT [facility]REF[facility] Est. Avg Glucose 183 mg/dL 05/30/2023 3:54 PM EDT [facility] [employer] [facility] Blood VENOUS BLOOD / Unknown Venipuncture / Unknown 05/30/2023 11:11 AM EDT 05/30/2023 11:11 AM EDT Narrative PREFERRED [employer] [facility] - 05/30/2023 3:54 PM EDT REFERENCE RANGE: Normal: 4.0-5.6% Pre-diabetes: 5.7-6.4% Provisional diagnosis of diabetes: >6.4% Hgb F>10% and anything which shortens red cell survival, such as hemolytic anemia, or unstable hemoglobin variants such as HbSS, HbSC, or HbCC, will lower the HbA1c value associated with a given level of glycemic control. ? Lakisha Gupta APRN CHEMISTRY ORDERABLES Final R [employer] [facility] [employer] [address] , [place] [address] * (ABNORMAL) FRUCTOSAMINE (05/30/2023 11:11 AM EDT) Pathologist [facility] Fructosamine 304(H) 205 - 285 mcmol/L 05/30/2023 4:03 PM EDT [facility] Blood VENOUS BLOOD / Unknown Venipuncture / Unknown 05/30/2023 11:11 AM EDT 05/30/2023 11:11 AM EDT Narrative [facility] [employer] [facility] - 05/30/2023 4:03 PM EDT Serum protein level variations may alter fructosamine results. Lakisha Gupta APRN CHEMISTRY ORDERABLES Final R [facility] [address] [place] [address] , [place] [address] * (ABNORMAL) COMPREHENSIVE METABOLIC PANEL (05/30/2023 11:11 AM EDT) [facility] Sodium 137 136 - 145 mmol/L 05/30/2023 [...] 4:17 PM EDT [facility] Bili Total 0.3 0.2 - 1.4 mg/dL 05/30/2023 4:17 PM EDT [facility] ALT 20 <=41 U/L 05/30/2023 4:17 PM EDT [facility] AST 24 <=40 U/L 05/30/2023 4:17 PM EDT [facility] Alk Phos 53 40 - 129 U/L 05/30/2023 4:17 PM EDT [facility] eGFR (CKD-EPIcr 2020) 51(L) >=60 mL/min/1.7 3 m2 05/30/2023 4:17 PM EDT [facility] Comment:Estimated GFR was ca lculated using the CKD-EPIcr (2020) equation refit without race. The equation is recommended by the National Kidney Foundation - [place] [employer] of Nephrology Task Force. Blood VENOUS BLOOD / Unknown Venipuncture / Unknown 05/30/2023 11:11 AM EDT 05/30/2023 11:11 AM EDT us Lakisha Gupta MEDICAL STAFF SPECIALIST CHEMISTRY ORDERABLES Final R esult [facility] [address] [place] [address] [facility] [address] [place] [address] documented in this encounter Visit Diagnoses Diagnosis Encounter for long-term (current) use of medications Encounter for long-term (current) use of other medications Type 2 diabetes mellitus with microalbuminuria, with long-term current use of insulin (HCC) Vitamin D deficiency Unspecified vitamin D deficiency documented in this encounter Care Teams Accreditation Specialist Relationship Specialty Start Date End Date Aba Espinoza MD [address] [place] [phone] PCP - General Family Medicine 07/27/16 Fili Sanchez MD [address] [facility] [address] [place] [address] Internal Medicine-Endocrinology, Diabetes & Metabolism 04/11/14 documented as of this encounter
--- OUTSIDE RECORDS SUMMARY | 2024-01-18 14:52 | XMS_ITS | Encounter Summary ---
Author Organization [place] [address] Care Team Providers Care Supervisor Gas Meter Rep[employer] Name Role Phone Fili Sanchez MD Unavailable [phone] Aba Espinoza MD Primary Care Provider [phone] Reason for Referral * In Office Procedure (Routine) - Authorization Not Needed Specialty Diagnoses / Procedures Referred By Kadie casillas Referred To Contact Diagnoses Right foot pain Foreign body (FB) in soft tissue Procedures DE INCISION & REMOVAL FOREIGN BODY SUBQ TISS SIMPLE Dane Alanis DPM Phone: tel: fax: Dane Alanis DPM Phone: tel: fax: Referral ID Status Reason Start Date Expiration Date Visits Requested Visits Authorized [id number] Authorization Not Needed 07/08/2023 07/16/2024 1 1 Reason for Visit * Reason Comments Diabetes Foot Pain B/L * In Office Procedure (Routine) - Authorization Not Needed Specialty Diagnoses / Procedures Referred By Kadie casillas Referred To Contact Diagnoses Right foot pain Foreign body (FB) in soft tissue Procedures DE INCISION & REMOVAL FOREIGN BODY SUBQ TISS SIMPLE Dane Alanis DPM Phone: tel: fax: Dane Alanis, [place] Phone: tel: fax: Referral ID Status Reason Start Date Expiration Date Visits Requested Visits Authorized [id number] Authorization Not Needed 07/08/2023 07/16/2024 1 1 Encounter Details Date Type Department Care Team (Late st Contact Info) Description 07/08/2023 8:30 AM EDT Office Visit [facility] [place] [address] [place] [address] Dane Alanis, DPM [address] [place] [address] Foreign body (FB) in soft tissue (Primary Dx); Type 2 diabetes mellitus with diabetic nephropathy, with long-term current use of insulin (HCC); Type 2 diabetes mellitus with microalbuminuria, with long-term current use of insulin (HCC); Right foot pain; Corns and callosities; Onychodystrophy; Onychomycosis Social History Tobacco Use Types Packs/Day Years [...] Pressure - - Pulse - - Temperature 36.1 ??C (96.9 ??F) 07/08/2023 8:34 AM ED T Respiratory Rate - - Oxygen Saturation - - Inhaled Oxygen Concentration - - Weight 123.7 kg (272 lb 9.6 oz) 07/08/2023 8:34 AM EDT Height 185.4 cm (6' 1 ) 07/08/2023 8:34 AM EDT Body Mass Index 35.97 07/08/2023 8:34 AM EDT documented in this encounter Progress Notes * Chen Knight MA - 07/08/2023 8:30 AM EDT Review of Systems Constitutional: Positive for activity change. Musculoskeletal: Positive for back pain, gait problem and joint swelling. * Dane Alanis DPM - 07/08/2023 8:30 AM EDT Images from the original note were not included. [facility] Podiatric Surgery Outpatient Progress Note Dane Alanis DPM Name: Dane Ray Primary Care Physician: Aba Espinoza MD Chief Complaint: Chief Complaint Patient presents with Diabetes Foot Pain B/L History of Presenting Illness: Dane Ray is a 72 y.o. male who is coming here for diabetic foot care and a thicken lesionon the outside of his right foot. The patient was placed on oral abx. Before coming into the office. Medications: Outpatient Medications Marked as Taking for the 07/08/23 encounter (Office Visit) with Dane Alanis DPM Medication Sig Dispense Refill allopurinoL (ZYLOPRIM) 100 mg Oral Tablet 100 mg daily. TAKES IN EVENING aspirin (ASPIRIN) 81 mg Oral Tablet, Chewable Take 1 Tab by mouth daily. 30 Tab 0 BASAGLAR KWIKPEN U-100 INSULIN 100 unit/mL (3 mL) SubQ Insulin Pen Subcutaneous (Inject under the skin) 26 Units every evening. 15 mL 3 Blood Sugar Diagnostic (ACCU-CHEK GUIDE TEST STRIPS) [...] Take by mouth daily. flash glucose sensor (Can'tWaitYLE THIEN 14 DAY SENSOR) [facility] Kit 1 Each by [facility].(Non-Drug; Combo Route) route every 14 days. 3 Kit 0 flash glucose sensor (FREESTYLE THIEN 2 SENSOR) [facility] Kit 1 Each by [facility].(Non- Drug; Combo Route) route every 14 days. 6 Kit 1 FREESTYLE THIEN 2 READER [facility] Use as directed to test BS. DX code: E11.21 1 Each 0 glipiZIDE (GLUCOTROL XL) 5 mg Oral Tablet Extended Rel 24 hr Take 3 tabs with first meal of the [id number] Tablet 2 Insulin [place], Disposable, (BD PATITO 2ND GEN PEN NEEDLE) 32 gauge x [facility] Needle Use once daily with insulin 100 Each 1 magnesium oxide 400 mg magnesium Oral Capsule Take by mouth. Take 2 times daily nitroGLYCERIN (NITROLINGUAL) 400 mcg/spray TL [place], Non-Aerosol Place 1 [place] under the tongue every 5 minutes as [...] Tablet 10 mg. Takes one tab MWF Allergies Allergen Reactions Metformin Swelling Swelling of feet and myalgias Actos [Pioglitazone] Other (See Comments) HF Epinephrine Other (See Comments) Contraindicated related to pt's EF=25% Rosuvastatin Other (See Comments) Leg cramps and pain. Past Medical History: Diagnosis Date Diabetes mellitus (HCC) High blood pressure Hyperlipidemia Multiple endocrine neoplasia (HCC) Uncontrolled diabetes mellitus with stage 3 chronic kidney disease, without long-term current use of insulin 02/22/2019 Past Surgical History: Procedure Laterality Date BYPASS GRAFT 11/2021 COLONOSCOPY PACEMAKER PLACEMENT Family History Problem Relation Age of Onset Heart Attack Mother Diabetes Father Heart Attack Father Social History: Dane's social history reviewed: Social History Socioeconomic History Marital status: Single Spouse name: None Number of children: None Years of education: None Highest education level: None Tobacco Use Smoking status: Former Current packs/day: 0.00 Average packs/day: 2.5 packs/day for 8.1 years (20.1 ttl pk-yrs) Types: Cigarettes Start date: 12/31/2012 Quit date: 06/25/2016 Years since quittin.0 Passive exposure: Past Smokeless tobacco: Never Tobacco comments: 3 months ago Vaping Use Vaping status: Never Used Substance and Sexual Activity Alcohol use: Yes Alcohol/week: 6.0 oz Types: 10 Cans of beer per week Comment: A week Drug use: No Sexual activity: Not Currently Partners: Female Social Determinants of Health Financial Resource Strain: Low Risk (10/29/2021) Received from [facility] Overall Financial Resource Strain (CARDIA) Difficulty of Paying Living Expenses: Not hard at all Food Insecurity: No Food Insecurity (10/29/2021) Received from [facility] Hunger Vital Sign Worried About Running Out of Food in the Last Year: Never true Ran Out of Food in the Last Year: Never true Transportation Needs: No Transportation Needs (10/29/2021) Received from [facility] PRAPARE - Transportation Lack of Transportation (Medical): No Lack of Transportation (Non-Medical): No Received from [facility], [facility] Family and Community Support Received from [facility] Abuse Screen Received from [facility] Housing Stability Review of Systems: The following systems were reviewed and revealed the following in addition to any already discussedin the HPI: Constitutional: Positive for activity change. Musculoskeletal: Positive for back pain, gait problem and joint swelling. Physical Examination: Vital Signs: Temp 96.9 ??F (36.1 ??C) (Forehead) Ht 6' 1 (1.854 m) Wt 272 lb 9.6 oz (123.7 kg) BMI 35.97 kg/m?? General: Dane appears in no acute distress Skin: warm, dry, and intact Head: Normocephalic, without obvious abnormality, atraumatic Lungs: Breathing unlabored Neurological: sensation grossly normal. LE exam separate. Extremities/Musculoskeletal: See Focused Exam LOWER EXTREMITY FOCUSED EXAM: Lower Extremity Exam: Vascular Exam: Pedal pulses palpable for dorsalis pedis and posterior tibial arteries bilaterally. Capillary refill time < 3 seconds to digits 1-5 bilaterally. No vascular lesions or varicosities bilaterally. Neuro Exam: Sensation decreased to light touch. Musc Exam: Muscle strength normal for lower extremity extrinsic musculature bilaterally. Range of motion is within normal limits for the ankle joint, subtalar joint, midtarsal joint, metatarsal phalangeal joints. Mild pain and tenderness on submet 5 of the right foot. Derm Exam: Deroofed blister with a couple of pieces of wood in the foot. Hyperkeratotic lesions on the medial right hallux and distal tip of the left 2nd toe. Thicken and discolored toenails on the hallux b/l and the 2nd toe b/l. Assessment: Dane Ray was seen today for Chief Complaint Patient presents with Diabetes Foot Pain B/L Dane was seen today for diabetes and foot pain. 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 The patient was evaluated and treated today with my staff and I taking a detailed medical history of the patient. 2. I performed a diabetic foot exam on the patient and recommended that he check his feet daily, always wear shoegear, and keep his blood sugar under control. 3. Sharp debridement of mycotic toenails X4 and elongated toenails X6. 4. Sharp debridement of hyperkeratotic lesions X2. 5. I sharply debrided the deroofed blister area and removed at least 2 small pieces of wood. There was no pus or drainage associated with the site. 6. RTO in 3 months. Dane Alanis DPM 07/12/2023 documented in this encounter Plan of Treatment Upcoming Encounters Date Type Department Care Team (Late st Contact Info) Description 04/26/2024 9:00 AM EDT Office Visit [facility] Nephrology [address] [place] [address] Julio Silva MD [address] [place] [address] Scheduled Orders Name Type Priority Associated Diagnoses Orde r Schedule DE INCISION & REMOVAL FOREIGN BODY SUBQ TISS SIMPLE DE Charge Routine Right foot pain Foreign body (FB) in soft tissue Ordered: 07/17/2023 documented as of this encounter Visit Diagnoses Diagnosis Foreign body (FB) in soft tissue- Primary Residual foreign body in soft tissue Type 2 diabetes mellitus with diabetic nephropathy, 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
--- OUTSIDE RECORDS SUMMARY | 2024-01-18 14:52 | XMS_ITS | Encounter Summary ---
Author Organization [facility] [place] [address] Care Team Providers Care Package Delivery Driver Name Role Phone Fili Sanchez MD Unavailable [phone] Aba Espinoza MD Primary Care Provider [phone] Encounter Details Date Type Department Care Team (Latest Contact Info) Description 10/10/2023 Travel Social History Tobacco Use Types Packs/Day [...] Description 04/26/2024 9:00 AM EDT Office Visit [facility] Nephrology [place] [address] [place] [address] Julio Silva MD [address] [place] [address] documented as of this encounter Visit Diagnoses Not on filedocumented in this encounter Care Teams Package Delivery Driver Relationship Specialty Start Date End Date Aba Espinoza MD [address] [place] [address] [place] [phone] PCP - General Family Medicine 07/27/16 Fili Sanchez MD [address] [place] [address] [address] Internal Medicine-Endocrinology, Diabetes & Metabolism 04/11/14 documented as of this encounter
--- OUTSIDE RECORDS SUMMARY | 2024-01-18 14:52 | XMS_ITS | Encounter Summary ---
Author Organization [facility] [place] [address] Care Team Providers Care Supervisor [employer] Name Role Phone Fili Sanchez MD Unavailable [phone] Aba Espinoza MD Primary Care Provider [phone] Reason for Visit * Reason Onset Date Comments Medication Refill 01/05/2023 Encounter Details Date Type Department Care Team (Late st Contact Info) Description 01/05/2023 Refill [facility] [address] [facility] [address] [place] [phone] Lakisha Gupta APRN [address] [facility] [address] [place] [phone] Medication Refill Social History Tobacco Use [...] encounter Miscellaneous Notes * Telephone Encounter - Dalila Hudson MA - 01/05/2023 4:30 PM EST We do not prescribe that for him. Please contact PCP. * Telephone Encounter - Lakisha Gupta APRN - 01/05/2023 4:28 PM EST Defer to PCP, we do not order that for him and it appears it was last ordered 6 years ago per refill request? * Telephone Encounter - Yolis Quan MA - 01/05/2023 2:12 PM EST Pt would like a refill of Spironolactone 25 mg. Pt previously got medication from historical provider. Pt was last seen 12/04/2022. documented in this encounter Plan of Treatment Upcoming Encounters Date Type Department Care Team (Late st Contact Info) Description 04/26/2024 9:00 AM EDT Office Visit [facility] Nephrology [place] [address] [place] [address] Julio Silva MD [address] [place] [address] documented as of this encounter Visit Diagnoses Not on filedocumented in this encounter Care Teams Supervisor [employer] Relationship Specialty Start Date End Date Aba Espinoza MD [address] [place] [address] [place] [address] PCP - General Family Medicine 07/27/16 Fili Sanchez MD [address] [place] [facility] [address] [place] [address] Internal Medicine-Endocrinology, Diabetes & Metabolism 04/11/14 documented as of this encounter
--- OUTSIDE RECORDS SUMMARY | 2024-01-18 14:52 | XMS_ITS | Encounter Summary ---
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, with long-term current use of insulin (HCC) Onychodystrophy Onychomycosis Pain in toes of both feet Procedures UT DEBRIDEMENT OF NAIL(S), 1-5 Dane Alanis DPM [address] [place] [address] Phone: tel: fax: Referral ID Status Reason Start Date Expiration Date Visits Requested Visits Authorized [id number] Authorization Not Needed 10/11/2023 10/10/2024 1 1 Reason for Visit * Reason Comments Nail Care nail care Encounter Details Date Type Department Care Team (Late st Contact Info) Description 10/11/2023 9:15 AM EDT Office Visit [facility] [place] [address] [place] [phone] Dane Alanis, DPM [address] [place] [address] Pain in toes of both feet (Primary Dx); Type 2 diabetes mellitus with diabetic nephropathy, with long-term current use of insulin (HCC); Type 2 diabetes mellitus with microalbuminuria, with long-term current use of insulin (HCC); Right foot pain; Onychodystrophy; Onychomycosis; Corns and callosities Social History Tobacco Use Types Packs/Day Years [...] Pressure - - Pulse - - Temperature 35.9 ??C (96.6 ??F) 10/11/2023 9:20 AM ED T Respiratory Rate - - Oxygen Saturation - - Inhaled Oxygen Concentration - - Weight 121.6 kg (268 lb) 10/11/2023 9:20 AM EDT Height 185.4 cm (6' 1 ) 10/11/2023 9:20 AM EDT Body Mass Index 35.36 10/11/2023 9:20 AM EDT documented in this encounter Progress Notes * Arianna Salcido RMA - 10/11/2023 9:15 AM EDT Review of Systems Constitutional: Negative for activity change, chills, fatigue and fever. Eyes: Positive for visual disturbance (glasses as needed). Respiratory: Negative for apnea and shortness of breath. Cardiovascular: Positive for leg swelling. Negative for chest pain. Gastrointestinal: Negative for nausea and vomiting. Musculoskeletal: Positive for gait problem (knee pain). Negative for back pain and joint swelling. Skin: Negative for rash and wound. Neurological: Positive for weakness, light-headedness, numbness (feet, neck and legs) and headaches. Negative for dizziness and seizures. Hematological: Bruises/bleeds easily. Psychiatric/Behavioral: Negative for agitation, behavioral problems and confusion. The patient is not nervous/anxious. All other systems reviewed and are negative. * Dane Alanis DPM - 10/11/2023 9:15 AM EDT [facility] Podiatric Surgery Outpatient Progress Note Dane Alanis DPM Name: Dane Ray Primary Care Physician: Aba Espinoza MD Chief Complaint: Chief Complaint Patient presents with Nail Care nail care History of Presenting Illness: Dane Ray is a 72 y.o. male who is coming here for diabetic foot care and a thicken lesionon the outside of his right foot. Medications: Outpatient Medications Marked as Taking for the 10/11/23 encounter (Office Visit) with Dane Alanis DPM [...] flash glucose sensor (FREESTYLE THIEN 2 SENSOR) Misc Kit 1 Each by [facility].(Non- Drug; Combo Route) route every 14 days. 6 Kit 1 FREESTYLE THIEN 2 READER [facility] Use as directed to test BS. DX code: E11.21 1 Each 0 glipiZIDE (GLUCOTROL XL) 5 mg Oral Tablet Extended Rel 24 hr Take 3 tabs with first meal of the [id number] Tablet 2 Insulin [place], Disposable, (BD PATITO 2ND GEN PEN NEEDLE) 32 gauge x /32 [facility] Needle USE ONCE DAILY WITH INSULIN 90 Each 1 magnesium oxide 400 mg magnesium Oral Capsule Take by mouth. Take 2 times daily nitroGLYCERIN (NITROLINGUAL) 400 mcg/spray TL [place], Non-Aerosol Place 1 [place] under the tongue every 5 minutes as [...] date: 12/31/2012 Quit date: 06/25/2016 Years since quittin.2 Passive exposure: Past Smokeless tobacco: Never Tobacco comments: 3 months ago Vaping Use Vaping status: Never Used Substance and Sexual Activity Alcohol use: Yes Alcohol/week: 6.0 oz Types: 10 Cans of beer per week Comment: A week Drug use: No Sexual activity: Not Currently Partners: Female Social Determinants of Health Financial Resource Strain: Low Risk (10/29/2021) Received from [facility] Overall Financial Resource Strain (CARDIA) Difficulty of Paying Living Expenses: Not hard at all Food Insecurity: No Food Insecurity (10/29/2021) Received from [facility] Hunger Vital Sign Worried About Running Out of Food in the Last Year: Never true Ran Out of Food in the Last Year: Never true Transportation Needs: No Transportation Needs (10/29/2021) Received from [facility] PRAPARE - Transportation Lack of Transportation (Medical): No Lack of Transportation (Non-Medical): No [facility] Family and Community Support Received from [facility] Abuse Screen Received from [facility] Housing Stability Review of Systems: The following systems were reviewed and revealed the following in addition to any already discussedin the HPI: Constitutional: Positive for activity change. Musculoskeletal: Positive for back pain, gait problem and joint swelling. Physical Examination: Vital Signs: Temp 96.6 ??F (35.9 ??C) (Forehead) Ht 6' 1 (1.854 m) Wt 268 lb (121.6 kg) BMI 35.36 kg/m?? General: Dane appears in no acute [...] 5 of the right foot. Derm Exam: Hyperkeratotic lesions on the medial right hallux and distal tip of the left 2nd toe. Thicken and discolored toenails on the hallux b/l and the 2nd toe b/l. Assessment: Dane Ray was seen today for Chief Complaint Patient presents with Nail Care nail care Dane was seen today for nail care. 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 The patient was evaluated and treated today. 2. I recommended that he check his feet daily, always wear shoegear, and keep his blood sugar undercontrol. 3. Sharp debridement of mycotic toenails X4 and elongated toenails X6. 4. Sharp debridement of hyperkeratotic lesions X2. 5. RTO in 3 months. 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, with long-term current use of insulin ([facility]) Onychodystrophy Onychomycosis Pain in toes of both feet Ordered: 10/11/2023 documented as of this encounter Visit Diagnoses Diagnosis Pain in toes of both feet- Primary Type 2 diabetes mellitus with diabetic nephropathy, 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
--- OUTSIDE RECORDS SUMMARY | 2024-01-18 14:52 | XMS_ITS | Encounter Summary ---
Author Organization [facility] Address [address] [place] [address] Care Team Providers Care Casting Wheel Operator Helper Name Role Phone Fili Sanchez MD Unavailable [phone] Aba Espinoza MD Primary Care Provider [phone] Reason for Visit * Reason Comments Chronic Kidney Disease Stage 3a Encounter Details Date Type Department Care Team (Late st Contact Info) Description 10/13/2023 3:15 PM EDT Office Visit [facility] Nephrology [place] [address] [facility] [address] [place] [address] Julio Silva MD [address] [place] [address] Stage 3a chronic kidney disease (HCC) (Primary Dx); Chronic kidney disease-mineral and bone disorder; HTN (hypertension), benign Social History Tobacco Use Types Packs/Day Years Used Date Smoking Tobacco: Former Cigarettes 2.5 8.1 1 03/02/2012 - 06/25/2016 Passive Smoke Exposure: Past Smokeless Tobacco: Never Tobacco Cessation:Counseling Given: Yes [...] Sign Reading Time Taken Comments Blood Pressure 115/65 10/13/2023 3:12 PM EDT Pulse 72 10/13/2023 3:12 PM EDT Temperature - - Respiratory Rate - - Oxygen Saturation - - Inhaled Oxygen Concentration - - Weight 121.7 kg (268 lb 3.2 oz) 10/13/2023 3:12 PM EDT Height 185.4 cm (6' 1 ) 10/13/2023 3:12 PM EDT Body Mass Index 35.38 10/13/2023 3:12 PM EDT documented in this encounter Progress Notes * Julio Silva MD - 10/13/2023 3:15 PM EDT Images from the original note were not included. OFFICE NOTE Referred by Lakisha Gupta APRN Reason for Consult: CKD stage 3a Chief Complaint Patient presents with Chronic Kidney Disease Stage 3a History of Present Ilness: This patient is [...] date: 12/31/2012 Quit date: 06/25/2016 Years since quittin.3 Passive exposure: Past Smokeless tobacco: Never Tobacco [...] Tablet Take 180 mg by mouth daily. (Patient not taking: Reported on 10/11/2023) Blood Sugar Diagnostic (ACCU-CHEK GUIDE TEST STRIPS) [facility] Strip Use to test blood sugars daily. Dx Code:E11.65 100 Strip 3 carvediloL (COREG) 12.5 mg Oral Tablet 12.5 mg 2 times daily. Take an additonal 6.25 every evening (Patient not taking: Reported on 07/08/2023) carvediloL (COREG) 25 mg Oral Tablet Take [...] glucose sensor (FREESTYLE THIEN 14 DAY SENSOR) [facility] Kit 1 Each by [facility].(Non-Drug; Combo Route) route every 14 days. 3 Kit 0 flash glucose sensor (FREESTYLE THIEN 2 SENSOR) [facility] Kit 1 Each by [facility].(Non- Drug; Combo Route) route every 14 days. 6 Kit 1 FREESTYLE THIEN 2 READER [facility] Use as directed to test BS. DX code: E11.21 1 Each 0 glipiZIDE (GLUCOTROL XL) 5 mg Oral Tablet Extended Rel 24 hr Take 3 tabs with first meal of the phw298 Tablet 2 Insulin [place], Disposable, (BD PATITO 2ND GEN PEN NEEDLE) 32 gauge x 5/32 Misc Needle USE ONCE DAILY WITH INSULIN 90 Each 1 magnesium oxide 400 mg magnesium Oral Capsule Take by mouth. Take 2 times daily nitroGLYCERIN (NITROLINGUAL) 400 mcg/spray TL [place], Non-Aerosol Place 1 [place] under the tongue every 5 minutes as [...] Tablet 10 mg. Takes one tab MWF No current facility-administered medications on file prior to visit. Review of Systems: All other 12 ROS were negative except in HPI. Denies diaphoresis, weakness, blurred vision,photophobia, polydipsia,rash, ear pain, nosebleed, hemoptysis, dysuria, flank pain, tremor, tingling, depression, or insomnia. Physical exam: There were no vitals filed for this visit. Gen: Alert, oriented, not in distress HEENT: oral mucosa moist, atraumatic, sclera and conjunctiva clear Neck: Supple. JVD absent, midline trachea, no tenderness, no mass, no thyromegaly Chest: CTAB, normal airflow, normal effort, symmetrical chest expansion and clear to percussion andpalpation Heart: s1s2 normal, No rub or gallop, Abd: soft, Nt, BS present, no organomegaly Ext: Edema absent, no clubbing or cyanosis ROCK PICKER: no focal deficit, alert, oriented Psychiatry: normal [...] 10/27/2022 Lab Results Component Value Date NA 140 10/11/2023 K 4.8 10/11/2023 CL 104 10/11/2023 CO2 27 10/11/2023 ANIONGAP 9 10/11/2023 CALCIUM 9.4 10/11/2023 GLU 153 (H) 10/11/2023 BUN 25 (H) 10/11/2023 CREATININE 1.49 (H) 10/11/2023 ALBUMIN 4.5 10/11/2023 PROT 7.4 10/11/2023 LABBILI 0.4 10/11/2023 AST 18 10/11/2023 ALT 21 10/11/2023 ALKPHOS 55 10/11/2023 GFRAFRAM 58 (L) 11/05/2020 GFRNONAFRAM 50 (L) 11/05/2020 Lab Results Component Value Date PHOS 3.2 10/11/2023 Lab Results Component Value Date CHOLESTEROL 128 10/27/2022 TRIG 122 10/27/2022 HDL 50 10/27/2022 LDLCALC 56 10/27/2022 NONHDLC 78 10/27/2022 Lab Results Component Value Date PMDA42LT 41.8 10/11/2023 Lab Results Component Value Date PTHINTACT 93.40 (H) 10/11/2023 Assessment and Plan: 1. CKD IIIa: His chronic kidney disease is most likely secondary to atherosclerotic vascular disease + diabetic nephrpathy. UA bland. No proteinuria. Rt kidney 111.8 cm and left kidney 11.8 cm. Left kidney has 1.2 cm left renal cyst. Asked to avoid high salt and high phos diet. Should avoid processed food and NSAIDs. Sr cr is around 1.4. SR cr 1.49. On Jardiance. 2. BMD (bone mineral disease): PTH 93, Phos 3.2 and Vitamin D level 41. Calcium level Ok. 3. Anemia: HGB 13.4 4. HTN: Fairly well controlled. On coreg 25 mg BID and spironolactone 25 mg daily. 5. Edema: Ask to monitor weight. 6. Ischemic cardiomyopathy: s/p CABG X5. On coreg, jardiance, entresto, spironolactone and torsemide. 7. DMII: HGBA1C 8.0. Better control will help nephropathy. Thank you for referring patient to me. Please call me with any question. Julio Silva MD [facility] NEPHROLOGY [place] [address] [place] [address] Dept: [phone] Dept Loc: [phone] Loc [facility] Nephrology documented in this encounter Plan of Treatment Upcoming Encounters Date Type Department Care Team (Late st Contact Info) Description 04/26/2024 9:00 AM EDT Office Visit [facility] Nephrology [place] [address] [place] [address] Julio Silva MD [address] [place] [address] documented as of this encounter Results * (ABNORMAL) URINALYSIS (12/23/2023 1:27 PM EST) UA Color Colorless 12/23/2023 8:04 PM EST [facility] UA Appear Clear Clear 12/23/2023 8:04 PM EST [facility] UA Glucose 4+ (>1000mg/dL) (A) Negative mg/dL 12/23/2023 8:04 PM EST [facility] UA Ketones Negative Negative mg/dL 12/23/2023 8:04 PM EST [facility] UA Blood Negative Negative 12/23/2023 8:04 PM EST [facility] UA pH 6.0 5.0 - 8.0 pH 12/23/2023 8:04 PM EST [facility] UA Protein Negative Negative mg/dL 12/23/2023 8:04 PM EST [facility] [employer] [facility] UA Urobilinogen Normal <=1 mg/dL 8:04 PM EST [facility] UA Bili Negative Negative 12/23/2023 8:04 PM EST [facility] UA Nitrite Negative Negative 12/23/2023 8:04 PM EST [facility] UA Leuk Est Negative Negative 12/23/2023 8:04 PM EST [facility] UA Spec Grav 1.011 1.001 - 1.035 no units 12/23/2023 8:04 PM EST [facility] [employer] Comment:Reference range ji d for random specimens only. Urine URINE SPECIMEN COLLECTION, CLEAN CATCH / Unknown 12/23/2023 1:27 PM EST 12/23/2023 1:27 PM EST Julio Silva MD URINE ORDERABLES Final Result [facility] [address] [facility] , [place] [address] * PARATHYROID HORMONE INTACT (12/23/2023 1:27 PM EST) PTH Intact 62.70 15.00 - 65.00 pg/mL 12/24/2023 12:05 AM EST [facility] Blood VENOUS BLOOD / Unknown Venipuncture / Unknown 12/23/2023 1:27 PM EST 12/23/2023 1:27 PM EST Narrative [facility] - 12/24/2023 12:05 AM EST Intact PTH [...] ORDERABLES Final Resul t Performing Organization Address [facility] de Phone Number [facility] [address] [place] [address] [place] [address] * VITAMIN D 25 HYDROXY (12/23/2023 1:27 PM EST) Pathologist [facility] Vit D 25 [place] 32.3 30.0 - 150.0 ng/mL 12/24/2023 1:52 AM EST [facility] Comment: Preferred: >= 30 ng/mL Insufficient: 21-29 [...] ORDERABLES Final Resul t Performing Organization Address [facility] Phone Number [facility] [address] [place] [address] [place] [address] * (ABNORMAL) RENAL FUNCTION PANEL (12/23/2023 1:27 PM EST) [facility] Sodium 137 136 - 145 mmol/L 12/23/2023 9:03 PM EST [facility] Potassium 4.6 3.5 - 5.0 mmol/L 12/23/2023 9:03 PM EST [facility] Chloride 98 98 - 107 mmol/L 12/23/2023 9:03 PM EST [facility] Total CO2 27 22 - 29 mmol/L 12/23/2023 9:03 PM EST [facility] Anion Gap 12 7 - 16 mmol/L 12/23/2023 9:03 PM EST [facility] Calcium 9.6 8.8 - 10.4 mg/dL 12/23/2023 9:03 PM EST [facility] Glucose Lvl 136(H) 70 - 99 mg/dL 12/23/2023 9:03 PM EST [facility] BUN 28(H) 8 - 23 mg/dL 12/23/2023 9:03 PM EST [facility] Creatinine 1.58(H) 0.67 - 1.30 mg/dL 12/23/2023 9:03 PM EST [facility] Albumin 4.7(H) 3.2 - 4.6 gm/dL 12/23/2023 9:03 PM EST [facility] Phosphorus 3.7 2.5 - 4.5 mg/dL 12/23/2023 9:03 PM EST [facility] eGFR (CKD-EPIcr 2020) 46(L) >=60 mL/min/1.7 3 m2 12/23/2023 9:03 PM EST [facility] Comment:Estimated GFR was ca lculated using the CKD-EPIcr (2020) equation refit without race. The equation is recommended by the National Kidney Foundation - [place] [employer] of Nephrology Task Force. Blood VENOUS BLOOD / Unknown Venipuncture / Unknown 12/23/2023 1:27 PM EST 12/23/2023 1:27 PM EST us Julio Silva MD CHEMISTRY ORDERABLES Final Resul t [facility] [address] , [place] [address] [facility] [address] [place], [place] [id number] * PROTEIN/CREATININE RATIO URINE (12/23/2023 1:27 PM EST) Urine Protein <6.0 mg/dL 12/23/2023 9:50 PM EST [facility] Urine Creatinine 39.7 mg/dL 12/23/2023 9:50 PM EST [facility] Ur Protein/Creat <0.15 mg/mg 12/23/2023 9:50 PM EST [facility] Urine URINE SPECIMEN COLLECTION / Unknown 12/23/2023 1:27 PM EST 12/23/2023 1:27 PM EST us Julio Silva MD URINE ORDERABLES Final Result Performing Organization Address [facility] Co de Phone Number [facility] [address] , [place] [address] [facility] [address] [place], [place] [id number] * MICROALBUMIN/CREATININE RATIO URINE (12/23/2023 1:27 PM EST) Urine Microalb 12.0 mg/L 12/23/2023 9:50 PM EST [facility] Urine Creatinine 39.7 mg/dL 12/23/2023 9:50 PM EST [facility] Ur Microalb/Creat 30 0 - 30 mg/g 12/23/2023 9:50 PM EST [facility] Urine URINE SPECIMEN COLLECTION / Unknown 12/23/2023 1:27 PM EST 12/23/2023 1:27 PM EST us Julio Silva MD URINE ORDERABLES Final Result Performing Organization Address City/[facility]/ZIP Co de Phone Number [facility] [address] , [place] [phone] [facility] [address] [place] [phone] documented in this encounter Visit Diagnoses Diagnosis Stage 3a chronic kidney disease (HCC)- Primary Chronic kidney disease-mineral and bone disorder HTN (hypertension), benign Essential hypertension, benign documented in this encounter Orders Lab Orders Without Results Count Last Ordered D ate First Ordered Date HEPATIC FUNCTION PANEL 1 10/13/2023 documented in this encounter Care Teams Casting Wheel Operator Helper Relationship Specialty Start Date End Date Aba Espinoza MD [address] [place] [phone] PCP - General Family Medicine 07/27/16 Fili Sanchez MD [address] [facility] [address] [place] [address] Internal Medicine-Endocrinology, Diabetes & Metabolism 04/11/14 documented as of this encounter
--- OUTSIDE RECORDS SUMMARY | 2024-01-18 14:52 | XMS_ITS | Encounter Summary ---
Author Organization [place] [address] Care Team Providers Care Fiber Optic Assembly Worker Name Role Phone Fili Sanchez MD Unavailable [phone] Aba Espinoza MD Primary Care Provider [phone] Reason for Referral * Ultrasound (Routine) - Pending Review Specialty Diagnoses / Procedures Referred By Contac t Referred To Contact Radiology Diagnoses Stage 3a chronic kidney disease (HCC) Procedures US RENAL AND BLADDER Julio Silva MD [address] [place] [address] Phone: tel: fax: Referral ID Status Reason Start Date Expiration Date V isits Requested Visits Authorized [id number] Pending Review 06/23/2023 06/22/2024 1 1 Reason for Visit * Ultrasound (Routine) - Pending Review Specialty Diagnoses / Procedures Referred By Contac t Referred To Contact Radiology Diagnoses Stage 3a chronic kidney disease (HCC) Procedures US RENAL AND BLADDER Julio Silva MD [address] [facility] [address] [place] [address] Phone: tel: fax: Referral ID Status Reason Start Date Expiration Date V isits Requested Visits Authorized [id number] Pending Review 06/23/2023 06/22/2024 1 1 Encounter Details Date Type Department Care Team (Latest Contact Info) Description 06/27/2023 1:09 PM EDT - 06/27/2023 11:59 PM EDT Hospital Encounter [facility] [address] [place] [phone] Julio Silva MD [address] [place] [address] Stage 3a chronic kidney disease (HCC) Discharge Disposition: [...] Blood Sugar Diagnostic (ACCU-CHEK GUIDE TEST STRIPS) [facility] Strip Use to test blood sugars daily. [...] flash glucose sensor (FREESTYLE THIEN 2 SENSOR) [facility] Kit 1 Each by [facility]Non-Drug; Combo Route) route every 14 days. 6 Kit 1 12/18/2021 FREESTYLE THIEN 2 READER [facility] Use as directed to test BS. DX code: E11.21 1 Each 12/18/2021 magnesium oxide 400 mg magnesium Oral Capsule Take by mouth. Take 2 times daily nitroGLYCERIN (NITROLINGUAL) 400 mcg/spray TL [place], Non-Aerosol Place 1 [place] under the tongue every 5 minutes as [...] glucose sensor (FREESTYLE THIEN 14 DAY SENSOR) [facility] Kit 1 Each by [facility].(Non-Drug; Combo Route) route every 14 days. 3 Kit 12/16/2021 4 glipiZIDE (GLUCOTROL XL) 5 mg Oral Tablet Extended Rel 24 hr Take 3 tabs with first meal of the day 270 Tablet 2 02/25/2023 4 Insulin [place], Disposable, (BD PATITO 2ND GEN PEN NEEDLE) [...] Description 04/26/2024 9:00 AM EDT Office Visit [facility] Ne[facility]rology [place] [address] [place] [address] Julio Silva MD [address] [address] documented as of this encounter Procedures Procedure Name Priority Date/Time Associated Diagnosis Comments US RENAL AND BLADDER Routine 06/27/2023 1:27 PM EDT Stage 3a chronic kidney disease (HCC) documented in this encounter Results * US RENAL AND BLADDER (06/27/2023 1:27 [...] evaluation of the kidneys and bladder with access representative images and unified communications architect notes sent to PACS for radiologist review. [...] sonographic evaluation of the kidneys andbladder with access representative images and unified communications architect notes sent to PACS forradiologist review. FINDINGS: [...] please contactthe office of the ordering clinician. us Julio Silva MD [facility] US ORDERABLES Final Result documented in this encounter Visit Diagnoses Diagnosis Stage 3a chronic kidney disease (HCC) documented in this encounter Care Teams Fiber Optic Assembly Worker Relationship Specialty Start Date End Date Aba Espinoza MD [address] [place] [address] PCP - General Family Medicine 07/27/16 Fili Sanchez MD [address] [facility] [address] [place] [phone] Internal Medicine-Endocrinology, Diabetes & Metabolism 04/11/14 documented as of this encounter
--- OUTSIDE RECORDS SUMMARY | 2024-01-18 14:52 | XMS_ITS | Encounter Summary ---
Author Organization [place] [address] Care Team Providers Care Director Operations Name Role Phone Fili Sanchez MD Unavailable [phone] Aba Espinoza MD Primary Care Provider [phone] Reason for Visit * Reason Onset Date Comments Results 02/25/2023 External records request- diabetic eye exam Encounter Details Date Type Department Care Team (Late st Contact Info) Description 02/25/2023 Telephone [facility] Transformation [address] [place] [address] Tri Soares RMA Results (External records request- diabetic eye exam ) Social History Tobacco Use Types Packs/Day Years [...] encounter Miscellaneous Notes * Telephone Encounter - Tri Soares RMA - 02/25/2023 10:27 AM EST The requested records EXTERNALRESULTSREQUEST: Diabetic Eye Exam from the facility were received andabstracted in the patient's chart on 02/25/2023. documented in this encounter Plan of Treatment Upcoming Encounters Date Type Department Care Team (Late st Contact Info) Description 04/26/2024 9:00 AM EDT Office Visit [facility] Nephrology [place] [address] [place] [address] Julio Silva MD [address] [place] [address] documented as of this encounter Visit Diagnoses Not on filedocumented in this encounter Care Teams Director Operations Relationship Specialty Start Date End Date Aba Espinoza MD [address] [place] [phone] PCP - General Family Medicine 07/27/16 Fili Sanchez MD [address] [facility] [address] [place] [address] Internal Medicine-Endocrinology, Diabetes & Metabolism 04/11/14 documented as of this encounter
--- OUTSIDE RECORDS SUMMARY | 2024-01-18 14:52 | XMS_ITS | Encounter Summary ---
Author Organization [place] [address] Care Team Providers Care Orthopaedic Surgeon Name Role Phone Fili Sanchez MD Unavailable [phone] Aba Espinoza MD Primary Care Provider [phone] Reason for Visit * Reason Comments Medication Refill Encounter Details Date Type Department Care Team (Late st Contact Info) Description 09/22/2023 Refill [facility] Physicians [facility] [address] [facility] [address] [place] [phone] Fili Sanchez MD [address] [address] Medication Refill Social History Tobacco [...] Last Filled Start Date End Date Insulin [place], Disposable, (BD YVETTE 2ND GEN PEN NEEDLE) 32 gauge x 5/32 Misc Needle USE ONCE DAILY WITH INSULIN 90 Each 1 09/22/2023 documented in this encounter Miscellaneous Notes * Telephone Encounter - Leyla Colbert CPhT - 09/22/2023 4:49 PM EDT bd yvette pen needle Medication Refill Protocol not available for this medication. Routed to office staff. documented in this encounter Plan of Treatment Upcoming Encounters Date Type Department Care Team (Late st Contact Info) Description 04/26/2024 9:00 AM EDT Office Visit [facility] [place] [address] [place] [address] Julio Silva MD [address] [place] [address] documented as of this encounter Visit Diagnoses Not on filedocumented in this encounter Discontinued Medications Medication Sig Discontinue Reason Start Date End Da te Insulin [place], Disposable, (BD YVETTE 2ND GEN PEN NEEDLE) 32 gauge x 5/32 Misc Needle Use once daily with insulin 03/09/2023 09/22/2023 documented as of this encounter Care Teams Orthopaedic Surgeon Relationship Specialty Start Date End Date Aba Espinoza MD [address] [place] [phone] PCP - General Family Medicine 07/27/16 Fili Sanchez MD [address] [facility] [address] [place] [address] Internal Medicine-Endocrinology, Diabetes & Metabolism 04/11/14 documented as of this encounter
--- OUTSIDE RECORDS SUMMARY | 2024-01-18 14:52 | XMS_ITS | Encounter Summary ---
Author Organization [facility] [place] [address] Care Team Providers Care Senior Insight Manager International Name Role Phone Fili Sanchez MD Unavailable Aba Espinoza MD Primary Care Provider [phone] Encounter Details Date Type Department Care Team (Latest Contact Info) Description 10/14/2023 Travel Social History Tobacco Use Types Packs/Day [...] Description 04/26/2024 9:00 AM EDT Office Visit [facility] Nephrology [place] [address] [place] [address] Julio Silva MD [address] [place] [address] documented as of this encounter Visit Diagnoses Not on filedocumented in this encounter Care Teams Senior Insight Manager International Relationship Specialty Start Date End Date Aba Espinoza MD [address] [place] [phone] PCP - General Family Medicine 07/27/16 Fili Sanchez MD [address] [address] Internal Medicine-Endocrinology, Diabetes & Metabolism 04/11/14 documented as of this encounter
--- OUTSIDE RECORDS SUMMARY | 2024-01-18 14:53 | XMS_ITS | Encounter Summary ---
Author Organization [place] [address] Care Team Providers Care Clinical Geneticist Name Role Phone Fili Sanchez MD Unavailable [phone] Aba Espinoza MD Primary Care Provider [phone] Reason for Visit * Reason Comments Medication Refill Encounter Details Date Type Department Care Team (Late st Contact Info) Description 05/31/2022 Refill [facility] Physicians [facility] [address] [facility] [address] [place] [address] Fili Sanchez MD [address] [address] Medication Refill Social History Tobacco [...] Refills Last Filled Start Date End Date metFORMIN (GLUCOPHAGE) 1,000 mg Oral Tablet TAKE 1 TABLET BY MOUTH TWICE A DAY 180 Tablet 06/01/2022 09/03/2022 documented in this encounter Miscellaneous Notes * Telephone Encounter - Glendy Kimbrough CPhT - 06/01/2022 1:55 PM EDT Metformin Medication Refill Protocol passed. [facility] Action: Approved 90-day supply with sufficient refills to cover patient until scheduled appointment on 08/04/22, and not exceeding 90 days past that date. documented in this encounter Plan of Treatment Upcoming Encounters Date Type Department Care Team (Late st Contact Info) Description 04/26/2024 9:00 AM EDT Office Visit [facility] Nephrology [place] [address] [facility] [address] [place] [address] Julio Silva MD [address] [place] [address] documented as of this encounter Visit Diagnoses Not on filedocumented in this encounter Discontinued Medications Medication Sig Discontinue Reason Start Date End Da te metFORMIN (GLUCOPHAGE) 1,000 mg Oral Tablet TAKE 1 TABLET BY MOUTH TWICE A DAY 03/03/2022 06/01/2022 documented as of this encounter Care Teams Clinical Geneticist Relationship Specialty Start Date End Date Aba Espinoza MD [address] [place] [phone] PCP - General Family Medicine 07/27/16 Fili Sanchez MD [address] [facility] [address] [place] [address] Internal Medicine-Endocrinology, Diabetes & Metabolism 04/11/14 documented as of this encounter
--- OUTSIDE RECORDS SUMMARY | 2024-01-18 14:53 | XMS_ITS | Encounter Summary ---
Author Organization [place] [address] Care Team Providers Care Applications Development Consultant Name Role Phone Fili Sanchez MD Unavailable [phone] Aba Espinoza MD Primary Care Provider [phone] Encounter Details Date Type Department Care Team (Latest Contact Info) Description 03/22/2022 5:00 PM EST - 03/22/2022 11:59 PM EST Hospital Encounter [facility] Cardiac Rehab [place] [address] [facility] [place] [address] Discharge Disposition: Home or Self Care Social [...] on file Sexual Orientation Not on file COVID-19 Exposure Response Date Recorded In the last 10 days, have yo u been in contact with someone who was confirmed or suspected to have Coronavirus/COVID-19? No / Unsure 03/22/2022 5:27 PM EST documented as of this encounter Medications at Time of Discharge allopurinoL (ZYLOPRIM) 100 mg Oral Tablet 100 mg daily. TAKES IN EVENING 06/22/2019 aspirin (ASPIRIN) 81 mg Oral Tablet, Chewable Take 1 Tab by mouth daily. 30 Tab 0 04/11/2014 Blood Sugar Diagnostic (ACCU-CHEK GUIDE TEST STRIPS) [facility] Strip Use to test blood sugars daily. Dx Code:E11.65 100 Strip 3 11/12/2020 escitalopram oxalate (LEXAPRO) 20 mg Oral Tablet Take by mouth daily. flash glucose sensor (FREESTYLE THIEN 2 SENSOR) [facility] Kit 1 Each by [facility].(Non-Drug ; Combo Route) route every 14 days. 6 Kit 1 12/18/2021 FREESTYLE THIEN 2 READER [facility] Use as directed to test BS. DX code: E11.21 1 Each 12/18/2021 magnesium oxide 400 mg magnesium Oral Capsule Take by mouth. Take 2 times daily nitroGLYCERIN (NITROLINGUAL) 400 mcg/spray TL [place], Non-Aerosol Place 1 [place] under the tongue every 5 minutes as needed for Chest pain. rOPINIRole (REQUIP) 0.5 mg Oral Tablet Take 0.5 mg by mouth. Takes once daily at night 01/30/2021 sacubitriL-valsa rtan (ENTRESTO) 24-26 mg Oral Tablet Take 1 Tab by mouth 2 times daily. spironolactone (ALDACTONE) 25 mg Oral Tablet Take 25 mg by mouth daily. torsemide (DEMADEX) 10 mg Oral Tablet 10 mg. Takes one tab MWF 05/25/2021 empagliflozin (JARDIANCE) 25 mg Oral Tablet Take 1 Tablet by mouth daily. 30 Tablet 5 11/26/2021 05/21/2022 flash glucose sensor (FREESTYLE THIEN 14 DAY SENSOR) [facility] Kit 1 Each by [facility].(Non-Drug ; Combo Route) route every 14 days. 3 Kit 12/16/2021 10/19/2023 metFORMIN (GLUCOPHAGE) 1,000 mg Oral Tablet TAKE 1 TABLET BY MOUTH TWICE A DAY 180 Tablet 03/03/2022 06/01/2022 documented as of this encounter Discharge Disposition Disposition Code Departure Means Destination Home or Self Care documented in this encounter Plan of Treatment Upcoming Encounters Date Type Department Care Team (Late st Contact Info) Description 04/26/2024 9:00 AM EDT Office Visit [place] Nephrology [place] [address] [place] [address] Julio Silva MD [address] [place] [address] documented as of this encounter Visit Diagnoses Not on filedocumented in this encounter Care Teams Applications Development Consultant Relationship Specialty Start Date End Date Aba Espinoza MD [address] [place] [phone] PCP - General Family Medicine 07/27/16 Fili Sanchez MD [address] [facility] [address] [place] [address] Internal Medicine-Endocrinology, Diabetes & Metabolism 04/11/14 documented as of this encounter
--- OUTSIDE RECORDS SUMMARY | 2024-01-18 14:53 | XMS_ITS | Encounter Summary ---
Author Organization [place] [address] Care Team Providers Care Doughnut Machine Operator Helper Name Role Phone Fili Sanchez MD Unavailable [phone] Aba Espinoza MD Primary Care Provider [phone] Reason for Visit * Reason Comments Diabetes * Consultation (Routine) - Closed Specialty Diagnoses / Procedures Referred By Kadie casillas Referred To Contact Internal Medicine-Endocrinology, Diabetes & Metabolism / Diabetes Services Diagnoses FU DM, type 2-4 months per 04/05/22 lw Procedures DM FOLLOW UP Aba Espinoza MD [address] [place] [address] [place] [address] Phone: tel: fax: Fili Sanchez MD [address] [place] [address] Phone: tel: fax: Referral ID Status Reason Start Date Expiration Date Visits Re quested Visits Authorized [id number] Closed 08/04/2022 08/04/2023 99 99 Encounter Details Date Type Department Care Team (Late st Contact Info) Description 11/25/2022 12:00 PM EDT Office Visit [facility] Diabetes [place] [address] [place] [address] Lakisha Gupta APRN [address] [address] Type 2 diabetes mellitus with diabetic nephropathy, with long-term current use of insulin (HCC) (Primary Dx); Severe obesity (BMI 35.0-39.9) with comorbidity (HCC); Long-term insulin use (HCC); Encounter for long-term (current) use of medications; Type 2 diabetes mellitus with microalbuminuria, with long-term current use of insulin (HCC); Dyslipidemia associated with type 2 diabetes mellitus (HCC) (HCC); Hypertension associated with diabetes (HCC) (HCC); Vitamin D deficiency; Stage 3a chronic kidney disease (HCC) Social History [...] Sign Reading Time Taken Comments Blood Pressure 108/68 11/25/2022 11:51 AM EDT Pulse 64 11/25/2022 11:51 AM EDT Temperature - - Respiratory Rate - - Oxygen Saturation - - Inhaled Oxygen Concentration - - Weight 122.1 kg (269 lb 3.2 oz) 023 11:51 AM EDT Height 185.4 cm (6' 1 ) 11/25/2022 11:5 1 AM EDT Body Mass Index 35.52 11/25/2022 11:51 AM EDT documented in this encounter Ordered Prescriptions Prescription Sig Dispense Quantity Refills Last Filled Start Date End Date glipiZIDE (GLUCOTROL XL) 5 mg Oral Tablet Extended Rel 24 hr Take 2 tabs with first meal of the day 180 Tablet 2 11/25/2022 MARKUS CONROY U-100 INSULIN 100 unit/mL (3 mL) SubQ Insulin Pen Subcutaneous (Inject under the skin) 17 Units every evening. 15 mL 3 11/25/2022 4 documented in this encounter Progress Notes * Lakisha Gupta APRN - 11/25/2022 12:00 PM EDT Diabetes Associated symptoms include arthralgias, congestion, myalgias, neck pain and weakness. Dane Ray is a 72 y.o. male who presents today for follow up Diabetes Mellitus since 2003. He is here for follow up. He was last seen one month ago. Current diabetes regimen includes: Glipizide ER 5 mg a day before breakfast Jardiance 25 mg a day Basaglar 14 units every evening. Did not start the ozempic as ordered at last visit due to cost. Using Rianna: avg for past 2 weeks is 209 with 40% TIR and no lows. Sugars are elevated after meals and also overnight. Review of Systems HENT: Positive for congestion. Respiratory: Positive for shortness of breath. Cardiovascular: Positive for leg swelling. Endocrine: Positive for cold intolerance. Musculoskeletal: Positive for arthralgias, back pain, myalgias, neck pain and neck stiffness. Neurological: Positive for weakness and light-headedness. Objective Vitals: 11/25/22 1151 BP: 108/68 Pulse: 64 Weight: 269 lb 3.2 oz (122.1 kg) Height: 6' 1 (1.854 m) Body mass index is 35.52 kg/m??. Objective: Physical Exam Vitals reviewed. Constitutional: [...] Laboratory: Lab Results Component Value Date HGBA1C 8.2 (H) 10/27/2022 Lab Results Component Value Date CREATININE 1.37 (H) 10/27/2022 No results found for: TSHREFLEX Lab Results Component Value Date ALT 18 10/27/2022 AST 20 10/27/2022 ALKPHOS 62 10/27/2022 Lab Results Component Value Date URINEMICROAL 13.6 10/27/2022 Lab Results Component Value Date CHOLESTEROL 128 10/27/2022 Lab Results Component Value Date HDL 50 10/27/2022 Lab Results Component Value Date LDLCALC 56 10/27/2022 Lab Results Component Value Date TRIG 122 10/27/2022 No results found for: CHOLHDL Assessment and Plan: 1. Diabetes Mellitus Type 2 UnControlled with CKD 3 Plan: -increase Glipizide ER 5 mg 2 tabs before first meal of the day. - increase Basaglar to 17 units a day. -continue Jardiance 25 mg a day. Tolerating well. - Call if BS less than 80 -Continue Freestyle rianna. -Hypoglycemic symptoms, prevention and treatment discussed in detail. - Advised to keep glucose tab and hard candy with him all the time -unable to use actos due to HF. -check fingerstick 2 times a day at different times. Diabetes Health Maintance: Eye exam: Advised yearly eye exam. Last exam on record from 04/2020; will call for report Foot exam: up to date MATT/ARB:Losartan ASA: 81 mg once a day. Smoking: former smoker 2. HTN: BP is at goal Follows with Cardiology. 3. Dyslipidemia: currently taking crestor 20 mg Goal LDL of less than 55 with hx of CAD will need at least a moderate intensity statin, he states his nurse orthopaedic in [place]. 4. 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 documented in this encounter Miscellaneous Notes * Patient Instructions - Lakisha Gupta APRN - 11/25/2022 12:00 PM EDT Test sugars at fasting and 2 hours after lunch or last meal of the day. Increase basaglar to 17 units and increase glipizide to 2 tabs with first meal of the day Continue sensor documented in this encounter Plan of Treatment Upcoming Encounters Date Type Department Care Team (Late st Contact Info) Description 04/26/2024 9:00 AM EDT Office Visit [facility] Nephrology [place] [address] [place] [place] [address] Julio Silva MD [address] [place] [address] documented as of this encounter Results * (ABNORMAL) VITAMIN D 25 HYDROXY (02/23/2023 12:23 PM EST) Pathologist [facility] Vit D 25 OH 20.6(L) 30.0 - 150.0 ng/mL 02/23/2023 7:08 PM EST [facility] Comment: Preferred: >= 30 ng/mL Insufficient: 21-29 [...] Gupta APRN CHEMISTRY ORDERABLES Final R esult [facility] [employer] [address] [facility] [place] [address] * VITAMIN B12 LEVEL (02/23/2023 12:23 PM EST) Pathologist [facility] Vitamin B12 339 232 - 1,245 pg/mL 02/23/2023 7:09 PM EST [facility] Blood VENOUS BLOOD / Unknown Venipuncture / Unknown 02/23/2023 12:23 PM EST 02/23/2023 12:23 PM EST Narrative [facility] - 02/23/2023 7:09 PM EST Ingestion of pratik doses of biotin (>5 mg/day) taken within 8 hours of drawing blood sample can interfere with this immunoassay test. Lakisha Gupta APRN CHEMISTRY ORDERABLES Final R esult Performing Organization Address [facility] de Phone Number [facility] [address] , [place] [id number] * THYROID STIMULATING HORMONE (02/23/2023 12:23 PM EST) TSH 2.750 0.270 - 4.200 mcIU/mL 02/23/2023 7:00 PM EST [facility] Blood VENOUS BLOOD / Unknown Venipuncture / Unknown 02/23/2023 12:23 PM EST 02/23/2023 12:23 PM EST Narrative [facility] - 02/23/2023 7:00 PM EST Ingestion of pratik doses of biotin (>5 mg/day) taken within 8 hours of drawing blood sample can interfere with this immunoassay test. Lakisha Gupta APRN CHEMISTRY ORDERABLES Final R [facility] Performing Organization Address [facility] de Phone Number [facility] [employer] [address] , [place] [address] * (ABNORMAL) HEMOGLOBIN A1C (02/23/2023 12:23 PM EST) Hgb A1C 9.2(H) 4.2 - 5.6 % 02/23/2023 5:12 PM EST [facility] Est. Avg Glucose 217 mg/dL 02/23/2023 5:12 PM EST [facility] Blood VENOUS BLOOD / Unknown Venipuncture / Unknown 02/23/2023 12:23 PM EST 02/23/2023 12:23 PM EST Narrative [facility] [employer] - 02/23/2023 5:12 PM EST REFERENCE RANGE: Normal: 4.0-5.6% Pre-diabetes: 5.7-6.4% Provisional diagnosis of diabetes: >6.4% Hgb F>10% and anything which shortens red cell survival, such as hemolytic anemia, or unstable hemoglobin variants such as HbSS, HbSC, or HbCC, will lower the HbA1c value associated with a given level of glycemic control. ? us Lakisha Gupta MEDICAL ADMINISTRATIVE CHEMISTRY ORDERABLES Final R esult [facility], [facility] [address] [facility] , [place] [address] * (ABNORMAL) COMPREHENSIVE METABOLIC PANEL (02/23/2023 12:23 PM EST) Sodium 138 136 - 145 mmol/L 02/23/2023 7:00 PM EST [facility] Potassium 4.4 3.5 - 5.0 mmol/L 02/23/2023 7:00 PM EST [facility] Chloride 99 98 - 107 mmol/L 02/23/2023 7:00 PM EST [facility] Total CO2 27 22 - 29 mmol/L 02/23/2023 7:00 PM EST [facility] Anion Gap 12 7 - 16 mmol/L 02/23/2023 7:00 PM EST [facility] Calcium 9.7 8.8 - 10.4 mg/dL 02/23/2023 7:00 PM EST [facility] Glucose Lvl 215(H) 82 - 100 mg/dL 02/23/2023 7:00 PM EST [facility] BUN 29(H) 8 - 23 mg/dL 02/23/2023 7:00 PM EST [facility] Creatinine 1.45(H) 0.67 - 1.30 mg/dL 02/23/2023 7:00 PM EST [facility] Albumin 4.2 3.2 - 4.6 gm/dL 02/23/2023 7:00 PM EST [facility] Total Protein 7.3 6.4 - 8.3 gm/dL 02/23/2023 7:00 PM EST [facility] Bili Total 0.5 0.2 - 1.4 mg/dL 02/23/2023 7:00 PM EST [facility] ALT 20 <=41 U/L 02/23/2023 7:00 PM EST [facility], [facility] AST 17 <=40 U/L 02/23/2023 7:00 PM EST [facility] [employer], [facility] Alk Phos 76 40 - 129 U/L 02/23/2023 7:00 PM EST [facility], [facility] eGFR (CKD-EPIcr 2020) 52(L) >=60 mL/min/1.7 3 m2 02/23/2023 7:00 PM EST [facility] Comment:Estimated GFR was ca lculated using the CKD-EPIcr (2020) equation refit without race. The equation is recommended by the National Kidney Foundation - [place] [employer] of Nephrology Task Force. Blood VENOUS BLOOD / Unknown Venipuncture / Unknown 02/23/2023 12:23 PM EST 02/23/2023 12:23 PM EST us Lakisha Gupta MEDICAL ADMINISTRATIVE CHEMISTRY ORDERABLES Final R esult [facility] [employer], [facility] [address] [facility] [place], [place] [address] [facility] [address] [place] [address] documented in this encounter Visit Diagnoses Diagnosis Type 2 diabetes mellitus with diabetic nephropathy, with long-term current use of insulin (HCC)- Primary Severe obesity (BMI 35.0-39.9) with comorbidity (HCC) Long-term insulin use (HCC) Encounter for long-term (current) use of insulin Encounter for long-term (current) use of medications Encounter for long-term (current) use of other medications Type 2 diabetes mellitus with microalbuminuria, with long-term current use of insulin ([facility]) Dyslipidemia associated with type 2 diabetes mellitus (HCC) Type II or unspecified type diabetes mellitus with other specified manifestations, not stated as uncontrolled Hypertension associated with diabetes (HCC) Type II or unspecified type diabetes mellitus with other specified manifestations, not stated as uncontrolled Vitamin D deficiency Unspecified vitamin D deficiency Stage 3a chronic kidney disease (HCC) documented in this encounter Discontinued Medications Medication Sig Discontinue Reason Start Date End Da te semaglutide 0.25 mg or 0.5 mg (2 mg/3 mL) SubQ Pen Injector Subcutaneous (Inject under the skin) 0.5 mg once a week. Cost of medication 10/28/2022 11/25/2022 simvastatin (ZOCOR) 40 mg Oral Tablet Take 1 Tablet by mouth nightly. DELETE-Therapy completed 09/16/2021 11/25/2022 BASAGLAR ANTONIIKPEN U-100 INSULIN 100 unit/mL (3 mL) SubQ Insulin Pen Subcutaneous (Inject under the skin) 14 Units every evening. Reorder 10/28/2022 11/25/2022 glipiZIDE (GLUCOTROL XL) 5 mg Oral Tablet Extended Rel 24 hr Take 1 Tablet by mouth daily. Reorder 10/28/2022 11/25/2022 documented as of this encounter Historical Medications * This list may reflect changes made after this encounter. rosuvastatin (CRESTOR) 20 mg Oral Tablet Take 20 mg by mouth daily. 07/27/2022 carvediloL (COREG) 25 mg Oral Tablet Take 25 mg by mouth 2 times daily. added in this encounter Care Teams Doughnut Machine Operator Helper Relationship Specialty Start Date End Date Aab Espinoza MD [address] [place] [phone] PCP - General Family Medicine 07/27/16 Fili Sanchez MD [address] [phone] Internal Medicine-Endocrinology, Diabetes & Metabolism 04/11/14 documented as of this encounter
--- OUTSIDE RECORDS SUMMARY | 2024-01-18 14:53 | XMS_ITS | Encounter Summary ---
Author Organization [place] [address] Care Team Providers Care Spray Painter Name Role Phone Fili Sanchez MD Unavailable [phone] Aba Espinoza MD Primary Care Provider [phone] Reason for Visit * Reason Onset Date Comments Medication Refill 07/02/2022 Encounter Details Date Type Department Care Team (Late st Contact Info) Description 07/02/[address] [facility] [address] [facility] [address] [place] [address] Fili Sanchez MD [address] [address] Medication Refill Social History Tobacco [...] Refills Last Filled Start Date End Date MARKUS CONROY U-100 INSULIN 100 unit/mL (3 mL) SubQ Insulin Pen Subcutaneous (Inject under the skin) 12 Units every evening. 15 mL 07/02/2022 documented in this encounter Miscellaneous Notes * Telephone Encounter - Dalila Hudson MA - 07/02/2022 8:24 AM EDT script has been sent * Telephone Encounter - James Sorenson - 07/02/2022 8:03 AM EDT Who is requesting the refill? pt Name of medication. Basaglar 30 or 90 day supply? 30 Pharmacy and Location [id number] [place] [address] [place] [phone] [[id number]] How many days of medication left on hand? OUT Future Appointment: Patient has appointment with Dr. Sanchez on 08/04. Route to [place]. Additional Notes : documented in this encounter Plan of Treatment Upcoming Encounters Date Type Department Care Team (Late st Contact Info) Description 04/26/2024 9:00 AM EDT Office Visit [facility] Nephrology [place] [address] [place] [address] Julio Silva MD [address] [place] [address] documented as of this encounter Visit Diagnoses Not on filedocumented in this encounter Discontinued Medications Medication Sig Discontinue Reason Start Date End Da te Insulin glargine (BASAGLAR KWIKPEN U-100 INSULIN) 100 unit/mL (3 mL) SubQ Insulin Pen Subcutaneous (Inject under the skin) 10 Units every evening. Reorder 11/26/2021 07/02/2022 documented as of this encounter Care Teams Spray Painter Relationship Specialty Start Date End Date Aba Espinoza MD [address] [place] [address] [place] [address] PCP - General Family Medicine 07/27/16 Fili Sanchez MD [address] [phone] Internal Medicine-Endocrinology, Diabetes & Metabolism 04/11/14 documented as of this encounter
--- OUTSIDE RECORDS SUMMARY | 2024-01-18 14:53 | XMS_ITS | Encounter Summary ---
Author Organization [facility] [address] Care Team Providers Care Financial Investment Adviser Name Role Phone Fili Sanchez MD Unavailable [phone] Aba Espinoza MD Primary Care Provider [phone] Encounter Details Date Type Department Care Team (Latest Contact Info) Description 10/25/2022 Travel Social History Tobacco Use Types Packs/Day [...] Description 04/26/2024 9:00 AM EDT Office Visit [facility] Nephrology [place] [address] [facility] [place] [address] Julio Silva MD [address] [place] [place] [address] documented as of this encounter Visit Diagnoses Not on filedocumented in this encounter Care Teams Financial Investment Adviser Relationship Specialty Start Date End Date Aba Espinoza MD [address] [place] [address] [place] [phone] PCP - General Family Medicine 07/27/16 Fili Sanchez MD [address] [address] Internal Medicine-Endocrinology, Diabetes & Metabolism 04/11/14 documented as of this encounter
--- OUTSIDE RECORDS SUMMARY | 2024-01-18 14:53 | XMS_ITS | Encounter Summary ---
Author Organization [place] [address] Care Team Providers Care Tutor Coordinator Name Role Phone Fili Sanchez MD Unavailable [phone] Aba Espinoza MD Primary Care Provider [phone] Encounter Details Date Type Department Care Team (Latest Contact Info) Description 04/02/2022 8:10 AM EST - 04/02/2022 11:59 PM EST Hospital Encounter [facility] [address] [place] [address] Type 2 diabetes mellitus with diabetic nephropathy, with long-term current use of insulin (HCC) Discharge Disposition: Home or Self Care [...] suspected to have Coronavirus/COVID-19? No / Unsure 04/02/2022 8:06 AM EST documented as of this encounter Medications at Time of Discharge allopurinoL (ZYLOPRIM) 100 mg Oral Tablet 100 mg daily. TAKES IN EVENING 06/22/2019 aspirin (ASPIRIN) 81 mg Oral Tablet, Chewable Take 1 Tab by mouth daily. 30 Tab 0 04/11/2014 Blood Sugar Diagnostic (ACCU-CHEK GUIDE TEST STRIPS) [facility] Strip Use to test blood sugars daily. Dx Code:E11.65 100 Strip 3 11/12/2020 escitalopram oxalate (LEXAPRO) 20 mg Oral Tablet Take by mouth daily. flash glucose sensor (FREESTYLE THIEN 2 SENSOR) [facility] Kit 1 Each by [facility].(Non-Drug; Combo Route) route every 14 days. 6 Kit 1 12/18/2021 FREESTYLE THIEN 2 READER [facility] Use as directed to test BS. DX code: E11.21 1 Each 12/18/2021 magnesium oxide 400 mg magnesium Oral Capsule Take by mouth. Take 2 times daily nitroGLYCERIN (NITROLINGUAL) 400 mcg/spray TL [place], Non-Aerosol Place 1 [place] under the tongue every 5 minutes as [...] an additonal 6.25 every evening 03/26/2022 4 empagliflozin (JARDIANCE) 25 mg Oral Tablet Take 1 Tablet by mouth daily. 30 Tablet 5 11/26/2021 3 flash glucose sensor (FREESTYLE THIEN 14 DAY SENSOR) [facility] Kit 1 Each by [facility].(Non-Drug; Combo Route) route every 14 days. 3 Kit 12/16/2021 4 metFORMIN (GLUCOPHAGE) 1,000 mg Oral Tablet TAKE 1 TABLET BY MOUTH TWICE A DAY 180 Tablet 03/03/2022 3 documented as of this encounter Discharge Disposition Disposition Code Departure Means Destination Home or Self Care documented in this encounter Plan of Treatment Upcoming Encounters Date Type Department Care Team (Late st Contact Info) Description 04/26/2024 9:00 AM EDT Office Visit [facility] Nephrology [place] [address] [place] [address] Julio Silva MD [address] [place] [address] documented as of this encounter Procedures Procedure Name Priority Date/Time Associated Diagnosis Comments LIPID PANEL REFLEX Routine 04/02/2022 8: 22 AM EST Type 2 diabetes mellitus with diabetic nephropathy, with long-term current use of insulin (HCC) MICROALBUMIN/CREATININ E RATIO URINE Routine 04/02/2022 8:22 AM EST Type 2 diabetes mellitus with diabetic nephropathy, with long-term current use of insulin (HCC) HEMOGLOBIN A1C Routine 04/02/2022 8:22 AM EST Type 2 diabetes mellitus with diabetic nephropathy, with long-term current use of insulin (HCC) COMPREHENSIVE METABOLIC PANEL Routine 04/02/2022 8:22 AM EST Type 2 diabetes mellitus with diabetic nephropathy, with long-term current use of insulin (HCC) documented in this encounter Results * MICROALBUMIN/CREATININE RATIO URINE (04/02/2022 8:22 AM EST) Urine Microalb <12.0 mg/L 04/02/2022 12:07 PM EST [facility] Urine Creatinine 48.1 mg/dL 04/02/19 23 12:07 PM EST [facility] Ur Microalb/Creat 023 12:07 PM EST [facility] Comment: Because the albumin level is below the level of detection in this urine specimen, the laboratory is unable to calculate a reliable albumin/creatinine ratio. Microalbuminuria is unlikely if the urine albumin concentration is less than 20- 30 mg/L in a random specimen. Urine URINE SPECIMEN COLLECTION / Unknown 04/02/2022 8:22 AM EST 04/02/2022 8:22 AM EST Fili Sanchez MD URINE ORDERABLES Final R esult Performing Organization Address [facility] de Phone Number [facility] [address] , [address] [place] [phone] * (ABNORMAL) HEMOGLOBIN A1C (04/02/2022 8:22 AM EST) Hgb A1C 7.7(H) 4.2 - 5.6 % 04/02/2022 11:57 AM EST [facility] Est. Avg Glucose 174 mg/dL 04/02/2022 11:57 AM EST [facility] Blood VENOUS BLOOD / Unknown Venipuncture / Unknown 04/02/2022 8:22 AM EST 04/02/2022 8:22 AM EST Narrative [facility] - 04/02/2022 11:57 AM EST REFERENCE RANGE: Normal: 4.0-5.6% Pre-diabetes: 5.7-6.4% Provisional diagnosis of diabetes: >6.4% Hgb F>10% and anything which shortens red cell survival, such as hemolytic anemia, or unstable hemoglobin variants such as HbSS, HbSC, or HbCC, will lower the HbA1c value associated with a given level of glycemic control. ? Fili Sanchez MD CHEMISTRY ORDERABLES Fin al Result Performing Organization Address [facility] de Phone Number [phone] [address] [place] [address] , [place] [address] * (ABNORMAL) COMPREHENSIVE METABOLIC PANEL (04/02/2022 8:22 AM EST) Sodium 131(L) 136 - 145 mmol/L 04/02/2022 12:14 PM EST [facility] Potassium 5.0 3.5 - 5.0 mmol/L 04/02/2022 12:14 PM EST [facility] Chloride 97(L) 98 - 107 mmol/L 04/02/2022 12:14 PM EST [facility] Total CO2 24 22 - 29 mmol/L 04/02/2022 12:14 PM EST [facility] Anion Gap 10 7 - 16 mmol/L 04/02/2022 12:14 PM EST [facility] Calcium 8.9 8.8 - 10.4 mg/dL 04/02/2022 12:14 PM EST [facility] Glucose Lvl 190(H) 82 - 100 mg/dL 04/02/2022 12:14 PM EST [facility] BUN 39(H) 8 - 23 mg/dL 04/02/2022 12:14 PM EST [facility] Creatinine 1.42(H) 0.67 - 1.30 mg/dL 04/02/2022 12:14 PM EST [facility] Albumin 4.4 3.2 - 4.6 gm/dL 04/02/2022 12:14 PM EST [facility] Total Protein 7.1 6.4 - 8.3 gm/dL 04/02/2022 12:14 PM EST [facility] Bili Total 0.3 0.1 - 1.4 mg/dL 04/02/2022 12:14 PM EST [facility] ALT 18 <=41 U/L 04/02/2022 12:14 PM EST [facility] AST 21 <=40 U/L 04/02/2022 12:14 PM EST [facility] Alk Phos 65 40 - 129 U/L 04/02/2022 12:14 PM EST [facility] eGFR (CKD-EPIcr 2020) 53(L) >=60 mL/min/1.7 3 m2 04/02/2022 12:14 PM EST [facility] Comment:Estimated GFR was ca lculated using the CKD-EPIcr (2020) equation refit without race. The equation is recommended by the National Kidney Foundation - [place] [employer] of Nephrology Task Force. Blood VENOUS BLOOD / Unknown Venipuncture / Unknown 04/02/2022 8:22 AM EST 04/02/2022 8:22 AM EST us Fili Herring Laura MD CHEMISTRY ORDERABLES Fin al Result Performing Organization Address City/[facility] Co de Phone Number [facility] [address] [facility] , [place] [address] [facility] 1 [place] [address] * (ABNORMAL) LIPID PANEL REFLEX (04/02/2022 8:22 AM EST) Cholesterol 122 <200 mg/dL 04/02/2022 12:14 PM EST [facility] Comment: < 200 ?Desirable 200 - 239 ? Borderline High >= 240 ?High Triglyceride 158(H) <150 mg/dL 04/02/2022 12:14 PM EST [facility] Comment: < 150 ? Normal 150 - 199 ?Borderline High 200 - 499 ?High ??>= 500 ? Very High HDL 38(L) >=40 mg/dL 04/02/2022 12:14 PM EST [facility] Comment: ??> 60 ?Optimal 40 - 60 ?Acceptable ?? < 40 ?Low LDL Calculated 57 <100 mg/dL 04/02/2022 12:14 PM EST [facility] Non-HDL-C Calculated 84 <=129 mg/dL 04/02/2022 12:14 PM EST [facility] Comment: <130 ?Desirable 130-159 Above Desirable 160-189 Borderline High 190-219 High >= 220 ??Very High Fasting Specimen? Yes None 023 12:14 PM EST [facility] Blood VENOUS BLOOD / Unknown Venipuncture / Unknown 04/02/2022 8:22 AM EST 04/02/2022 8:22 AM EST Fili Sanchez MD CHEMISTRY ORDERABLES Fin al Result Performing Organization Address City/[facility] Co de Phone Number [facility] [address] [facility] , [place] [address] [facility] [address] [place] [address] documented in this encounter Visit Diagnoses Diagnosis Type 2 diabetes mellitus with diabetic nephropathy, with long-term current use of insulin (HCC) documented in this encounter Care Teams Tutor Coordinator Relationship Specialty Start Date End Date Aba Espinoza MD [address] [place] [address] PCP - General Family Medicine 07/27/16 Fili Sanchez MD [address] [place] [address] Internal Medicine-Endocrinology, Diabetes & Metabolism 04/11/14 documented as of this encounter
--- OUTSIDE RECORDS SUMMARY | 2024-01-18 14:53 | XMS_ITS | Encounter Summary ---
Author Organization [place] [address] Care Team Providers Care High Speed Operator Name Role Phone Fili Sanchez MD Unavailable [phone] Aba Espinoza MD Primary Care Provider [phone] Reason for Visit * Reason Comments Medication Refill Encounter Details Date Type Department Care Team (Late st Contact Info) Description 09/02/2022 Refill [facility] [address] [facility] [address] [place] [address] Fili Sanchez MD [address] [address] Medication Refill Social History Tobacco [...] 1 TABLET BY MOUTH TWICE A DAY 60 Tablet 09/03/2022 09/23/2022 documented in this encounter Miscellaneous Notes * Telephone Encounter - Nina Lin CPhT - 09/03/2022 9:34 AM EDT Metformin Medication Refill Protocol failed due to appointment. child care cook Reason: Past follow-up date noted by provider. Provider wanted patient to follow-up around 08/03/22. There is no appointment scheduled. child care cook Action: Approved terrence 30-day supply of medication Routed to Patient Navigator team for outreach to schedule appointment. LV Assessed 04/05/22 documented in this encounter Plan of Treatment Upcoming Encounters Date Type Department Care Team (Late st Contact Info) Description 04/26/2024 9:00 AM EDT Office Visit [facility] Nephrology [place] [address] [facility] [address] [place] [address] Julio Silva MD [address] [place] [address] documented as of this encounter Visit Diagnoses Not on filedocumented in this encounter Discontinued Medications Medication Sig Discontinue Reason Start Date End Da te metFORMIN (GLUCOPHAGE) 1,000 mg Oral Tablet TAKE 1 TABLET BY MOUTH TWICE A DAY 06/01/2022 09/03/2022 documented as of this encounter Care Teams High Speed Operator Relationship Specialty Start Date End Date Aba Espinoza MD [address] [place] [address] [place] [phone] PCP - General Family Medicine 07/27/16 Fili Sanchez MD [address] [facility] [address] [place] [address] Internal Medicine-Endocrinology, Diabetes & Metabolism 04/11/14 documented as of this encounter
--- OUTSIDE RECORDS SUMMARY | 2024-01-18 14:53 | XMS_ITS | Encounter Summary ---
Author Organization [facility] [place] [address] Care Team Providers Care Irrigator Head Name Role Phone Fili Sanchez MD Unavailable [phone] Aba Espinoza MD Primary Care Provider [phone] Encounter Details Date Type Department Care Team (Latest Contact Info) Description 03/22/2022 Travel Social History Tobacco Use Types Packs/Day [...] PM EST documented as of this encounter Plan of Treatment Upcoming Encounters Date Type Department Care Team (Late st Contact Info) Description 04/26/2024 9:00 AM EDT Office Visit [facility] Nephrology [place] [address] [facility] [place] [address] Julio Silva MD [address] [place] [address] documented as of this encounter Visit Diagnoses Not on filedocumented in this encounter Care Teams Irrigator Head Relationship Specialty Start Date End Date Aba Espinoza MD [address] [place] [address] [place] [address] PCP - General Family Medicine 07/27/16 Fili Sanchez MD [address] [facility] [address] [place] [address] Internal Medicine-Endocrinology, Diabetes & Metabolism 04/11/14 documented as of this encounter
--- OUTSIDE RECORDS SUMMARY | 2024-01-18 14:53 | XMS_ITS | Encounter Summary ---
Author Organization [place] [address] Care Team Providers Care Machine Shop Apprentice Name Role Phone Fili Sanchez MD Unavailable Aba Espinoza MD Primary Care Provider [phone] Reason for Visit * Reason Onset Date Comments Paperwork/forms 05/21/2022 Encounter Details Date Type Department Care Team (Late st Contact Info) Description 05/21/2022 [facility] [address] [facility] [address] [place] [phone] Fili Sanchez MD [address] [address] Paperwork/forms Social History Tobacco Use Types Packs/Day Years [...] encounter Miscellaneous Notes * Telephone Encounter - Fili Sanchez MD - 05/24/2022 4:39 PM EDT Addended * Telephone Encounter - Charla Chaudharysey - 05/21/2022 8:48 AM EDT Please addend office visit note from 04/05/2022 to show that patient is using his CGM. documented in this encounter Plan of Treatment Upcoming Encounters Date Type Department Care Team (Late st Contact Info) Description 04/26/2024 9:00 AM EDT Office Visit [facility] Nephrology [place] [address] [place] [address] Julio Silva MD [address] [place] [address] documented as of this encounter Visit Diagnoses Not on filedocumented in this encounter Care Teams Machine Shop Apprentice Relationship Specialty Start Date End Date Aba Espinoza MD [address] [place] [address] [place] [phone] PCP - General Family Medicine 07/27/16 Fili Sanchez MD [address] [facility] [address] [place] [phone] Internal Medicine-Endocrinology, Diabetes & Metabolism 04/11/14 documented as of this encounter
--- OUTSIDE RECORDS SUMMARY | 2024-01-18 14:53 | XMS_ITS | Encounter Summary ---
Author Organization [place] [address] Care Team Providers Care Bonderizer Name Role Phone Fili Sanchez MD Unavailable [phone] Aba Espinoza MD Primary Care Provider [phone] Encounter Details Date Type Department Care Team (Latest Contact Info) Description 10/27/2022 10:40 AM EDT - 10/27/2022 11:59 PM EDT Hospital Encounter [facility] [address] [place] [address] Chronic systolic heart failure (HCC) (Primary Dx); Type 2 diabetes mellitus [...] Diagnostic (ACCU-CHEK GUIDE TEST STRIPS) [facility] Strip Use to test blood sugars daily. Dx Code:E11.65 100 Strip 3 11/12/2020 escitalopram oxalate (LEXAPRO) 20 mg Oral Tablet Take by mouth daily. flash glucose sensor (FREESTYLE THIEN 2 SENSOR) [facility] Kit 1 Each by [facility].(Non-Drug; Combo Route) route every 14 days. 6 Kit 1 12/18/2021 FREESTYLE THIEN 2 READER [facility] Use as directed to test BS. DX code: E11.21 1 Each 12/18/2021 magnesium oxide 400 mg magnesium Oral Capsule Take by mouth. Take 2 times daily nitroGLYCERIN (NITROLINGUAL) 400 mcg/spray TL [place], Non-Aerosol Place 1 [place] under the tongue every 5 minutes as [...] glucose sensor (FREESTYLE THIEN 14 DAY SENSOR) [facility] Kit 1 Each by [facility].(Non-Drug; Combo Route) route every 14 days. 3 Kit 12/16/2021 4 documented as of this encounter Discharge Disposition Disposition Code Departure Means Destination Home or Self Care documented in this encounter Plan of Treatment Upcoming Encounters Date Type Department Care Team (Late st Contact Info) Description 04/26/2024 9:00 AM EDT Office Visit [facility] Nephrology [place] [address] [place] [phone] Julio Silva MD [address] [place] [address] documented as of this encounter Procedures Procedure Name Priority Date/Time Associated Diagnosis Comments MICROALBUMIN/CREATININ E RATIO URINE Routine 10/27/2022 12:40 PM EDT Type 2 diabetes mellitus with diabetic nephropathy, with long-term current use of insulin (HCC) LIPID PANEL REFLEX Routine 10/27/2022 10 :59 AM EDT Type 2 diabetes mellitus with diabetic nephropathy, with long-term current use of insulin (HCC) CBC Routine 10/27/2022 10:59 AM EDT Chronic systolic heart failure (HCC) HEMOGLOBIN A1C Routine 10/27/2022 10:59 AM EDT Type 2 diabetes mellitus with diabetic nephropathy, with long-term current use of insulin (HCC) COMPREHENSIVE METABOLIC PANEL Routine 10/27/2022 10:59 AM EDT Type 2 diabetes mellitus with diabetic nephropathy, with long-term current use of insulin (HCC) documented in this encounter Results * (ABNORMAL) MICROALBUMIN/CREATININE RATIO URINE (10/27/2022 12:40 PM EDT) Urine Microalb 13.6 mg/L 10/27/2022 2:56 PM EDT [facility] [employer] [employer] Urine Creatinine 38.0 mg/dL 10/27/2022 2:56 PM EDT [facility] [employer] [employer] Ur Microalb/Creat 36(H) 0 - 30 mg/g 10/27/2022 2:56 PM EDT [facility] [employer] [employer] Urine URINE SPECIMEN COLLECTION / Unknown 10/27/2022 12:40 PM EDT 10/27/2022 12:40 PM EDT Filinicole Sanchez MD URINE ORDERABLES Final R esult [facility] [address] [facility] , [place] [address] * (ABNORMAL) HEMOGLOBIN A1C (10/27/2022 10:59 AM EDT) [facility] Hgb A1C 8.2(H) 4.2 - 5.6 % 10/27/2022 4:13 PM EDT [facility] Est. Avg Glucose 189 mg/dL 10/27/2022 4:13 PM EDT [facility] Blood VENOUS BLOOD / Unknown Venipuncture / Unknown 10/27/2022 10:59 AM EDT 10/27/2022 10:59 AM EDT Narrative [facility] - 10/27/2022 4:13 PM EDT REFERENCE RANGE: Normal: 4.0-5.6% Pre-diabetes: 5.7-6.4% Provisional diagnosis of diabetes: >6.4% Hgb F>10% and anything which shortens red cell survival, such as hemolytic anemia, or unstable hemoglobin variants such as HbSS, HbSC, or HbCC, will lower the HbA1c value associated with a given level of glycemic control. ? Fili Sanchez MD CHEMISTRY ORDERABLES [facility] al Result [employer] [employer] [facility] [address] [facility] , [place] [address] * (ABNORMAL) COMPREHENSIVE METABOLIC PANEL (10/27/2022 10:59 AM EDT) [facility] Sodium 139 136 - 145 mmol/L 10/27/2022 3:09 PM EDT [facility] Potassium 4.6 3.5 - 5.0 mmol/L 10/27/2022 3:09 PM EDT [facility] Chloride 102 98 - 107 mmol/L 10/27/2022 3:09 PM EDT [facility] Total CO2 25 22 - 29 mmol/L 10/27/2022 3:09 PM EDT [facility] Anion Gap 12 7 - 16 mmol/L 10/27/2022 3:09 PM EDT [facility] Calcium 9.5 8.8 - 10.4 mg/dL 10/27/2022 3:09 PM EDT [facility] Glucose Lvl 178(H) 82 - 100 mg/dL 10/27/2022 3:09 PM EDT [facility] BUN 24(H) 8 - 23 mg/dL 10/27/2022 3:09 PM EDT [facility] Creatinine 1.37(H) 0.67 - 1.30 mg/dL 10/27/2022 3:09 PM EDT [facility] Albumin 4.2 3.2 - 4.6 gm/dL 10/27/2022 3:09 PM EDT [facility] Total Protein 7.1 6.4 - 8.3 gm/dL 10/27/2022 3:09 PM EDT [facility] Bili Total 0.4 0.2 - 1.4 mg/dL 10/27/2022 3:09 PM EDT [facility] ALT 18 <=41 U/L 10/27/2022 3:09 PM EDT [facility] AST 20 <=40 U/L 10/27/2022 3:09 PM EDT [facility] Alk Phos 62 40 - 129 U/L 10/27/2022 3:09 PM ED[address] [facility] eGFR (CKD-EPIcr 2020) 55(L) >=60 mL/min/1.7 3 m2 10/27/2022 3:09 PM EDT [facility] Comment:Estimated GFR was ca lculated using the CKD-EPIcr (2020) equation refit without race. The equation is recommended by the National Kidney Foundation - [place] Society of Nephrology Task Force. Blood VENOUS BLOOD / Unknown Venipuncture / Unknown 10/27/2022 10:59 AM EDT 10/27/2022 10:59 AM EDT Fili Sanchez MD CHEMISTRY ORDERABLES Fin al Result [facility] [address] [facility] , [place] [address] [facility] 1 [place] [address] * LIPID PANEL REFLEX (10/27/2022 10:59 AM EDT) Pathologist [facility] Cholesterol 128 <200 mg/dL 10/27/2022 3:09 PM EDT [facility] Comment: < 200 ?Desirable 200 - 239 ? Borderline High >= 240 ?High Triglyceride 122 <150 mg/dL 10/27/2022 3:09 PM EDT [facility] Comment: < 150 ? Normal 150 - 199 ?Borderline High 200 - 499 ?High ??>= 500 ? Very High HDL 50 >=40 mg/dL 10/27/2022 3:09 PM EDT [facility] Comment: ??> 60 ?Optimal 40 - 60 ?Acceptable ?? < 40 ?Low LDL Calculated 56 <100 mg/dL 10/27/2022 3:09 PM EDT [facility] Non-HDL-C Calculated 78 <=129 mg/dL 10/27/2022 3:09 PM EDT [facility] Comment: <130 ?Desirable 130-159 Above Desirable 160-189 Borderline High 190-219 High >= 220 ??Very High Fasting Specimen? Yes None 023 3:09 PM EDT [facility] Blood VENOUS BLOOD / Unknown Venipuncture / Unknown 10/27/2022 10:59 AM EDT 10/27/2022 10:59 AM EDT Fili Sanchez MD CHEMISTRY ORDERABLES Fin al Result [facility] [address] [facility] , [place] [address] [facility] [address] [place] [address] * (ABNORMAL) CBC (10/27/2022 10:59 AM EDT) WBC 9.9 3.7 - 10.3 x10(3)/mcL 10/27/2022 2:32 PM EDT [facility] RBC 3.84(L) 4.60 - 6.10 x10(6)/mcL 10/27/2022 2:32 PM EDT [facility] Hgb 13.4(L) 13.7 - 17.5 g/dL 10/27/2022 2:32 PM EDT [facility] Hct 40.5 40.0 - 51.0 % 10/27/2022 2:32 PM EDT [facility] MCV 105.5(H) 80.0 - 100.0 fL 10/27/2022 2:32 PM EDT [facility] MCH 34.9(H) 26.0 - 34.0 pg 10/27/2022 2:32 PM EDT [facility] MCHC 33.1 30.7 - 35.5 g/dL 10/27/2022 2:32 PM EDT [facility] RDW 13.0 <=14.9 % 10/27/2022 2:32 PM EDT [facility] Platelet 143(L) 155 - 369 x10(3)/[facility] 10/27/2022 2:32 PM EDT [facility] MPV 12.4 8.8 - 12.5 fL 10/27/2022 2:32 PM EDT [facility] Blood VENOUS BLOOD / Unknown Venipuncture / Unknown 10/27/2022 10:59 AM EDT 10/27/2022 10:59 AM EDT us Not In Epic Provider HEMATOLOGY ORDERABLES Final Result [facility] [address] [facility] , [place] [address] documented in this encounter Visit Diagnoses Diagnosis Chronic systolic heart failure (HCC)- Primary Chronic systolic heart failure Type 2 diabetes mellitus with diabetic nephropathy, with long-term current use of insulin (HCC) documented in this encounter Care Teams Bonderizer Relationship Specialty Start Date End Date Aba Espinoza MD [address] [facility] [address] [place] [phone] PCP - General Family Medicine 07/27/16 Fili Sanchez MD [address] [phone] Internal Medicine-Endocrinology, Diabetes & Metabolism 04/11/14 documented as of this encounter
--- OUTSIDE RECORDS SUMMARY | 2024-01-18 14:53 | XMS_ITS | Encounter Summary ---
Author Organization [facility] [place] [address] Care Team Providers Care Electrical Instrument Technician Name Role Phone Fili Sanchez MD Unavailable [phone] Aba Espinoza MD Primary Care Provider [phone] Encounter Details Date Type Department Care Team (Latest Contact Info) Description 03/19/2022 Travel Social History Tobacco Use Types Packs/Day [...] suspected to have Coronavirus/COVID-19? No / Unsure 03/19/2022 12:15 PM EST documented as of this encounter Plan of Treatment Upcoming Encounters Date Type Department Care Team (Late st Contact Info) Description 04/26/2024 9:00 AM EDT Office Visit [facility] Nephrology [place] [address] [facility] [place] [address] Julio Silva MD [address] [place] [address] documented as of this encounter Visit Diagnoses Not on filedocumented in this encounter Care Teams Electrical Instrument Technician Relationship Specialty Start Date End Date Aba Espinoza MD [address] [place] [address] PCP - General Family Medicine 07/27/16 Fili Sanchez MD [address] [facility] [address] [place] [address] Internal Medicine-Endocrinology, Diabetes & Metabolism 04/11/14 documented as of this encounter
--- OUTSIDE RECORDS SUMMARY | 2024-01-18 14:53 | XMS_ITS | Encounter Summary ---
Author Organization [place] [address] Care Team Providers Care Process Lead Name Role Phone Fili Sanchez MD Unavailable [phone] Aba Espinoza MD Primary Care Provider [phone] Encounter Details Date Type Department Care Team (Late st Contact Info) Description 03/28/2022 Orders Only [facility] Physicians [facility] [place] 1500 [facility] [address] [place] [phone] Fili Sanchez MD [address] [address] Type 2 diabetes mellitus with [...] Description 04/26/2024 9:00 AM EDT Office Visit [facility] Nephrology [place] [address] [place] [address] Julio Silva MD [address] [place] [address] documented as of this encounter Results * MICROALBUMIN/CREATININE RATIO URINE (04/02/2022 8:22 AM EST) Urine Microalb <12.0 mg/L 04/02/2022 12:07 PM EST [facility] Urine Creatinine 48.1 mg/dL 04/02/19 23 12:07 PM EST [facility] Ur Microalb/Creat 023 12:07 PM EST [facility] Comment: Because the albumin level is below the level of detection in this urine specimen, the laboratory is unable to calculate a reliable albumin/creatinine ratio. Microalbuminuria is unlikely if the urine albumin concentration is less than 20- 30 mg/L in a random specimen. Urine URINE SPECIMEN COLLECTION / Unknown 04/02/2022 8:22 AM EST 04/02/2022 8:22 AM EST Filinicole Sanchez MD URINE ORDERABLES Final R esult [facility] 1 [facility] , [place] [address] * (ABNORMAL) HEMOGLOBIN A1C (04/02/2022 8:22 AM EST) Hgb A1C 7.7(H) 4.2 - 5.6 % 04/02/2022 11:57 AM EST [facility] Est. Avg Glucose 174 mg/dL 04/02/2022 11:57 AM EST [facility] Blood VENOUS BLOOD / Unknown Venipuncture / Unknown 04/02/2022 8:22 AM EST 04/02/2022 8:22 AM EST Narrative [facility] - 04/02/2022 11:57 AM EST REFERENCE RANGE: [...] ORDERABLES Fin al Result [facility] 1 [facility] , [place] [address] * (ABNORMAL) COMPREHENSIVE METABOLIC PANEL (04/02/2022 8:22 AM EST) Sodium 131(L) 136 - 145 mmol/L 04/02/2022 12:14 PM EST [facility] Potassium 5.0 3.5 - 5.0 mmol/L 04/02/2022 12:14 PM EST [facility] Chloride 97(L) 98 - 107 mmol/L 04/02/2022 12:14 PM EST [facility] Total CO2 24 22 - 29 mmol/L 04/02/2022 12:14 PM EST [facility] Anion Gap 10 7 - 16 mmol/L 04/02/2022 12:14 PM EST [facility] Calcium 8.9 8.8 - 10.4 mg/dL 04/02/2022 [...] - 4.6 gm/dL 04/02/2022 12:14 PM EST [facility] Total Protein 7.1 6.4 - 8.3 gm/dL 04/02/2022 12:14 PM EST [facility] Bili Total 0.3 0.1 - 1.4 mg/dL 04/02/2022 12:14 PM EST [facility] ALT 18 <=41 U/L 04/02/2022 12:14 PM EST [facility] AST 21 <=40 U/L 04/02/2022 12:14 PM EST [facility] Alk Phos 65 40 - 129 U/L 04/02/2022 12:14 PM EST [facility] eGFR (CKD-EPIcr 2020) 53(L) >=60 mL/min/1.7 3 m2 04/02/2022 12:14 PM EST [facility] Comment:Estimated GFR was ca lculated using the CKD-EPIcr (2020) equation refit without race. The equation is recommended by the National Kidney Foundation - [place] Society of Nephrology Task Force. Blood VENOUS BLOOD / Unknown Venipuncture / Unknown 04/02/2022 8:22 AM EST 04/02/2022 8:22 AM EST Fili Sanchez MD CHEMISTRY ORDERABLES Fin al Result [facility] 1 [facility] , [place] [address] [facility] [address] [place], [place] [id number] * (ABNORMAL) LIPID PANEL REFLEX (04/02/2022 8:22 AM EST) Cholesterol 122 <200 mg/dL 04/02/2022 12:14 PM EST [facility] Comment: < 200 ?Desirable 200 - 239 ? Borderline High >= 240 ?High Triglyceride 158(H) <150 mg/dL 04/02/2022 12:14 PM EST [facility] Comment: < 150 ? Normal 150 - 199 ?Borderline High 200 - 499 ?High ??>= 500 ? Very High HDL 38(L) >=40 mg/dL 04/02/2022 12:14 PM EST [facility] Comment: ??> 60 ?Optimal 40 - 60 ?Acceptable ?? < 40 ?Low LDL Calculated 57 <100 mg/dL 04/02/2022 12:14 PM EST [facility] Non-HDL-C Calculated 84 <=129 mg/dL 04/02/2022 12:14 PM EST [facility] Comment: <130 ?Desirable 130-159 Above Desirable 160-189 Borderline High 190-219 High >= 220 ??Very High Fasting Specimen? 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
--- OUTSIDE RECORDS SUMMARY | 2024-01-18 14:53 | XMS_ITS | Encounter Summary ---
Author Organization [place] [address] Care Team Providers Care Diesel Truck Driver Name Role Phone Fili Sanchez MD Unavailable [phone] Aba Espinoza MD Primary Care Provider [phone] Encounter Details Date Type Department Care Team (Late Contact Info) Description 07/18/2022 Orders Only [facility] Physicians On License [facility] Diabetes [place] 1500 [facility] [address] [place] [address] Fili Sanchez MD 1500 [facility] [address] [place] [phone] Type 2 diabetes mellitus with diabetic [...] Description 04/26/2024 9:00 AM EDT Office Visit [facility] Nephrology [place] [address] [place] [address] Julio Silva MD [address] [place] [address] documented as of this encounter Results * (ABNORMAL) MICROALBUMIN/CREATININE RATIO URINE (10/27/2022 12:40 PM EDT) Urine Microalb 13.6 mg/L 10/27/2022 2:56 PM EDT [facility] [place] Urine Creatinine 38.0 mg/dL 10/27/2022 2:56 PM EDT [facility] [place] Ur Microalb/Creat 36(H) 0 - 30 mg/g 10/27/2022 2:56 PM EDT [facility] [place] Urine URINE SPECIMEN COLLECTION / Unknown 10/27/2022 12:40 PM EDT 10/27/2022 12:40 PM EDT Fili Sanchez MD URINE ORDERABLES Final R esult [facility] [place] [address] [facility] , [place] [address] * (ABNORMAL) HEMOGLOBIN A1C (10/27/2022 10:59 AM EDT) Hgb A1C 8.2(H) 4.2 - 5.6 % 10/27/2022 4:13 PM EDT [facility] [place] Est. Avg Glucose 189 mg/dL 10/27/2022 4:13 PM EDT [facility] [place] Blood VENOUS BLOOD / Unknown Venipuncture / Unknown 10/27/2022 10:59 AM EDT 10/27/2022 10:59 AM EDT Narrative [facility] [place] - 10/27/2022 4:13 PM EDT REFERENCE RANGE: [...] ORDERABLES Fin al Result [facility] [address] [facility] , [place] [address] * (ABNORMAL) COMPREHENSIVE METABOLIC PANEL (10/27/2022 10:59 AM EDT) Sodium 139 136 - 145 mmol/L 10/27/2022 3:09 PM EDT [facility] Potassium 4.6 3.5 - 5.0 mmol/L 10/27/2022 3:09 PM EDT [facility] Chloride 102 98 - 107 mmol/L 10/27/2022 3:09 PM EDT [facility] Total CO2 25 22 - 29 mmol/L 10/27/2022 3:09 PM EDT [facility] Anion Gap 12 7 - 16 mmol/L 10/27/2022 3:09 PM EDT [facility] Calcium 9.5 8.8 - 10.4 mg/dL 10/27/2022 3:09 PM EDT [facility] Glucose Lvl 178(H) 82 - 100 mg/dL 10/27/2022 3:09 PM EDT [facility] BUN 24(H) 8 - 23 mg/dL 10/27/2022 3:09 PM EDT [facility] Creatinine 1.37(H) 0.67 - 1.30 mg/dL 10/27/2022 3:09 PM EDT [facility] Albumin 4.2 3.2 - 4.6 gm/dL 10/27/2022 3:09 PM EDT [facility] Total Protein 7.1 6.4 - 8.3 gm/dL 10/27/2022 3:09 PM EDT [facility] Bili Total 0.4 0.2 - 1.4 mg/dL 10/27/2022 3:09 PM EDT [facility] ALT 18 <=41 U/L 10/27/2022 3:09 PM EDT [facility] AST 20 <=40 U/L 10/27/2022 3:09 PM EDT [facility] Alk Phos 62 40 - 129 U/L 10/27/2022 3:09 PM EDT [facility] eGFR (CKD-EPIcr 2020) 55(L) >=60 mL/min/1.7 3 m2 10/27/2022 3:09 PM EDT [facility] Comment:Estimated GFR was ca lculated using the CKD-EPIcr (2020) equation refit without race. The equation is recommended by the National Kidney Foundation - [place] Society of Nephrology Task Force. Blood VENOUS BLOOD / Unknown Venipuncture / Unknown 10/27/2022 10:59 AM EDT 10/27/2022 10:59 AM EDT Fili Sanchez MD CHEMISTRY ORDERABLES Fin al Result [facility] [address] [facility] [address] [place] [address] [facility] 1 [place] [id number] * LIPID PANEL REFLEX (10/27/2022 10:59 AM EDT) Cholesterol 128 <200 mg/dL 10/27/2022 3:09 PM EDT [facility] Comment: < 200 ?Desirable 200 - 239 ? Borderline High >= 240 ?High Triglyceride 122 <150 mg/dL 10/27/2022 3:09 PM EDT [facility] Comment: < 150 ? Normal 150 - 199 ?Borderline High 200 - 499 ?High ??>= 500 ? Very High HDL 50 >=40 mg/dL 10/27/2022 3:09 PM EDT [facility] Comment: ??> 60 ?Optimal 40 - 60 ?Acceptable ?? < 40 ?Low LDL Calculated 56 <100 mg/dL 10/27/2022 3:09 PM EDT [facility] Non-HDL-C Calculated 78 <=129 mg/dL 10/27/2022 3:09 PM EDT [facility] Comment: <130 ?Desirable 130-159 Above Desirable 160-189 Borderline High 190-219 High >= 220 ??Very High Fasting Specimen? 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
--- OUTSIDE RECORDS SUMMARY | 2024-01-18 14:53 | XMS_ITS | Encounter Summary ---
Author Organization [place] [address] Care Team Providers Care Collision Repair Technician Name Role Phone Fili Sanchez MD Unavailable Aba Espinoza MD Primary Care Provider [phone] Reason for Visit * Reason Onset Date Comments Medication Refill Central Patient Navigator Outreach 09/05/2022 Med Refill 1st-RDC Encounter Details Date Type Department Care Team (Late st Contact Info) Description 09/05/20[facility] 1500 [facility] [address] [place] [address] Fili Sanchez MD [address] [address] Medication Refill; Central Patient Navigator Outreach (Med Refill 1st-RDC/) Social History Tobacco Use Types Packs/Day Years [...] End Date empagliflozin (JARDIANCE) 25 mg Oral Tablet TAKE 1 TABLET BY MOUTH EVERY DAY 30 Tablet 09/07/2022 10/12/2022 documented in this encounter Miscellaneous Notes * Telephone Encounter - Karmen Pineda - 09/13/2022 5:14 PM EDT Patient Outreach: Medication Refill Appointment 1st Terrence RDC Attempt Count: inbound Care Gaps Addressed parts counter sales person: Appointment Outcome: Appointment scheduled with PCP 10/28/22 * Addendum Note - Anupama Otero RN - 09/08/2022 11:32 AM EDTAddended by: ANUPAMA OTERO on: 09/08/2022 11:32 AM Modules accepted: Orders * Telephone Encounter - Juliet Mcintosh - 09/08/2022 10:45 AM EDT Patient Outreach: Medication Refill Appointment 1st Terrence RDC Attempt Count: inbound Care Gaps Addressed parts counter sales person: Annual Wellness Visit, Appointment, and Colorectal Cancer Screening Outcome: Appointment schedule with Specialty 10/28/22 and Patient/Parent/Guardian declined awv- willschedule when get back from vacation. pt states he had his colorectal cancer screening last year. office: Pharmacy team refilled a 30-day terrence supply of Jardiance. Pt scheduled appt with Lakisha Gupta for 10/28/22, that is after the 30-day refill. Please review to have medication extended and call patient to advise. Clinical Pool: Patient states colorectal cancer screenings were completed at [facility] last year with provider Dr. Pierce . Patient navigator will route to clinical pool to request results. * Telephone Encounter - Anila Fung - 09/08/2022 10:14 AM EDT Patient Outreach: Medication Refill Appointment 1st Terrence RDC Attempt Count: 2nd Care Gaps Addressed parts counter sales person: Appointment Outcome: Left message to return call at * Telephone Encounter - Elsi Poole - 09/07/2022 3:02 PM EDT Patient Outreach: Medication Refill Appointment 1st Terrence RDC Attempt Count: 1st Care Gaps Addressed parts counter sales person: Appointment Outcome: Left message to return call at and MyChart Message Sent * Telephone Encounter - Glendy Kimbrough CPhT - 09/07/2022 8:06 AM EDT Jardiance Medication Refill Protocol failed due to appointment. tree feller Reason: Past follow-up date noted by provider. Provider wanted patient to follow-up around 08/03/22. There is no appointment scheduled. tree feller Action: Approved terrence 30-day supply of medication Routed to Patient Navigator team for outreach to schedule appointment. documented in this encounter Plan of Treatment Upcoming Encounters Date Type Department Care Team (Late st Contact Info) Description 04/26/2024 9:00 AM EDT Office Visit [facility] Nephrology [place] [address] [facility] [place] [address] Julio Silva MD [address] [facility] [place] [address] documented as of this encounter Visit Diagnoses Diagnosis Hypertension associated with diabetes (HCC)- Primary Type II or unspecified type diabetes mellitus with other specified manifestations, not stated as uncontrolled documented in this encounter Discontinued Medications Medication Sig Discontinue Reason Start Date End Da te JARDIANCE 25 mg Oral Tablet TAKE 1 TABLET BY MOUTH EVERY DAY 05/21/2022 09/07/2022 documented as of this encounter Orders Nursing Count Last Ordered Date First Orde red Date EXTERNAL RESULTS REQUEST 1 09/08/2022 documented in this encounter Care Teams Collision Repair Technician Relationship Specialty Start Date End Date Aba Espinoza MD [address] [place] [phone] PCP - General Family Medicine 07/27/16 Fili Sanchez MD [address] [address] Internal Medicine-Endocrinology, Diabetes & Metabolism 04/11/14 documented as of this encounter
--- OUTSIDE RECORDS SUMMARY | 2024-01-18 14:53 | XMS_ITS | Encounter Summary ---
Author Organization [facility] [place] [address] Care Team Providers Care Supervisor Sanding Name Role Phone Fili Sanchez MD Unavailable [phone] Aba Espinoza MD Primary Care Provider [phone] Encounter Details Date Type Department Care Team (Latest Contact Info) Description 11/20/2022 Travel Social History Tobacco Use Types Packs/Day [...] 9:00 AM EDT Office Visit [facility] Nephrology [place] [address] [facility] [place] [address] Julio Silva MD [address] [place] [address] documented as of this encounter Visit Diagnoses Not on filedocumented in this encounter Care Teams Supervisor Sanding Relationship Specialty Start Date End Date Aba Espinoza MD [address] [place] [phone] PCP - General Family Medicine 07/27/16 Fili Sanchez MD [address] [phone] Internal Medicine-Endocrinology, Diabetes & Metabolism 04/11/14 documented as of this encounter
--- OUTSIDE RECORDS SUMMARY | 2024-01-18 14:53 | XMS_ITS | Encounter Summary ---
Author Organization [place] [address] Care Team Providers Care Food Service Attendant Name Role Phone Fili Sanchez MD Unavailable [phone] Aba Espinoza MD Primary Care Provider [phone] Encounter Details Date Type Department Care Team (Latest Contact Info) Description 03/31/2022 8:15 AM EST - 03/31/2022 11:59 PM EST Hospital Encounter [facility] [address] [place] [place] [address] Chronic systolic heart failure (HCC) (Primary Dx) Discharge Disposition: Home or Self Care Social [...] suspected to have Coronavirus/COVID-19? No / Unsure 03/31/2022 8:15 AM EST documented as of this encounter Medications at Time of Discharge allopurinoL (ZYLOPRIM) 100 mg Oral Tablet 100 mg daily. TAKES IN EVENING 06/22/2019 aspirin (ASPIRIN) 81 mg Oral Tablet, Chewable Take 1 Tab by mouth daily. 30 Tab 0 04/11/2014 Blood Sugar Diagnostic (ACCU-CHEK GUIDE TEST STRIPS) [facility] Strip Use to test blood sugars daily. Dx Code:E11.65 100 Strip 3 11/12/2020 escitalopram oxalate (LEXAPRO) 20 mg Oral Tablet Take by mouth daily. flash glucose sensor (FREESTYLE THIEN 2 SENSOR) [facility] Kit 1 Each by [facility].(Non-Drug; Combo Route) route every 14 days. 6 Kit 1 12/18/2021 FREESTYLE THIEN 2 READER [facility] Use as directed to test BS. DX code: E11.21 1 Each 12/18/2021 magnesium oxide 400 mg magnesium Oral Capsule Take by mouth. Take 2 times daily nitroGLYCERIN (NITROLINGUAL) 400 mcg/spray TL [place], Non-Aerosol Place 1 [place] under the tongue every 5 minutes as [...] glucose sensor (FREESTYLE THIEN 14 DAY SENSOR) [facility] Kit 1 Each by [facility].(Non-Drug; Combo Route) route every 14 days. [...] Office Visit [facility] Nephrology [place] [address] [place] [address] Julio Silva MD [address] [place] [address] documented as of this encounter Procedures Procedure Name Priority Date/Time Associated Diagnosis Comments BASIC METABOLIC PANEL Callback 03/31/2022 8:31 AM EST Chronic systolic heart failure (HCC) documented in this encounter Results * (ABNORMAL) BASIC METABOLIC PANEL (03/31/2022 8:31 AM EST) Sodium 137 136 - 145 mmol/L 03/31/2022 11:57 AM EST [facility] Potassium 4.9 3.5 - 5.0 mmol/L 03/31/2022 11:57 AM EST [facility] Chloride 99 98 - 107 mmol/L 03/31/2022 11:57 AM EST [facility] Total CO2 24 22 - 29 mmol/L 03/31/2022 11:57 AM EST [facility] Anion Gap 14 7 - 16 mmol/L 03/31/2022 11:57 AM EST [facility] Calcium 9.5 8.8 - 10.4 mg/dL 03/31/2022 11:57 AM EST [facility] Glucose Lvl 182(H) 82 - 100 mg/dL 03/31/2022 11:57 AM EST [facility] BUN 31(H) 8 - 23 mg/dL 03/31/2022 11:57 AM EST [facility] Creatinine 1.34(H) 0.67 - 1.30 mg/dL 03/31/2022 11:57 AM EST [facility] eGFR (CKD-EPIcr 2020) 57(L) >=60 mL/min/1.7 3 m2 03/31/2022 11:57 AM EST [facility] Comment:Estimated GFR was ca lculated using the CKD-EPIcr (2020) equation refit without race. The equation is recommended by the National Kidney Foundation - [place] Society of Nephrology Task Force. Blood VENOUS BLOOD / Unknown Venipuncture / Unknown 03/31/2022 8:31 AM EST 03/31/2022 8:32 AM EST us Referring Nonstaff CHEMISTRY ORDERABLES Final Re sult [facility] [address] [facility], [address] [place], [place] [id number] [facility] 1 [place], [place] [id number] documented in this encounter Visit Diagnoses Diagnosis Chronic systolic heart failure (HCC)- Primary Chronic systolic heart failure documented in this encounter Care Teams Food Service Attendant Relationship Specialty Start Date End Date Aba Espinoza MD [address] [place] [phone] PCP - General Family Medicine 07/27/16 Fili Sanchez MD [address] [facility] [address] [place] [phone] Internal Medicine-Endocrinology, Diabetes & Metabolism 04/11/14 documented as of this encounter
--- OUTSIDE RECORDS SUMMARY | 2024-01-18 14:53 | XMS_ITS | Encounter Summary ---
Author Organization [facility] [place] [address] Care Team Providers Care Screen Cutter And Trimmer Name Role Phone Fili Sanchez MD Unavailable [phone] Aba Espinoza MD Primary Care Provider [phone] Encounter Details Date Type Department Care Team (Latest Contact Info) Description 04/02/2022 Travel Social History Tobacco Use Types Packs/Day [...] AM EST documented as of this encounter Plan of Treatment Upcoming Encounters Date Type Department Care Team (Late st Contact Info) Description 04/26/2024 9:00 AM EDT Office Visit [facility] Nephrology [place] [address] [facility] [place] [address] Julio Silva MD [address] [place] [address] documented as of this encounter Visit Diagnoses Not on filedocumented in this encounter Care Teams Screen Cutter And Trimmer Relationship Specialty Start Date End Date Aba Espinoza MD [address] [place] [address] PCP - General Family Medicine 07/27/16 Fili Sanchez MD [address] [facility] [address] [place] [address] Internal Medicine-Endocrinology, Diabetes & Metabolism 04/11/14 documented as of this encounter
--- OUTSIDE RECORDS SUMMARY | 2024-01-18 14:53 | XMS_ITS | Encounter Summary ---
Author Organization [place] [address] Care Team Providers Care Registered Veterinary Technician Name Role Phone Fili Sanchez MD Unavailable [phone] Aba Espinoza MD Primary Care Provider [phone] Reason for Visit * Reason Onset Date Comments Results 10/28/2022 External records request Encounter Details Date Type Department Care Team (Late st Contact Info) Description 10/28/2022 Telephone [facility] Quality Transformation [address] [place], [place] [id number] Rocky Almaraz RMA [address] [facility] [address] [place] [address] Results (External records request ) Social History Tobacco Use Types Packs/Day [...] encounter Miscellaneous Notes * Telephone Encounter - Rocky Almaraz RMA - 10/28/2022 9:25 AM EDT There was not enough information to request records, we will not be able to get the records requested. We need the name of the facility, city and state or the MD name. The order will be closed at this time. [facility] Transformation Team Department Direct Line # [phone]. documented in this encounter Plan of Treatment Upcoming Encounters Date Type Department Care Team (Late st Contact Info) Description 04/26/2024 9:00 AM EDT Office Visit [facility] Nephrology [place] [address] [place] [address] Julio Silva MD [address] [place] [address] documented as of this encounter Visit Diagnoses Not on filedocumented in this encounter Care Teams Registered Veterinary Technician Relationship Specialty Start Date End Date Aba Espinoza MD [address] [place] [address] [place] [address] PCP - General Family Medicine 07/27/16 Fili Sanchez MD [address] [facility] [address] [place] [address] Internal Medicine-Endocrinology, Diabetes & Metabolism 04/11/14 documented as of this encounter
--- OUTSIDE RECORDS SUMMARY | 2024-01-18 14:53 | XMS_ITS | Encounter Summary ---
Author Organization [place] [address] Care Team Providers Care Floor Clerk Name Role Phone Fili Sanchez MD Unavailable [phone] Aba Espinoza MD Primary Care Provider [phone] Reason for Visit * Reason Comments Diabetes * Consultation (Routine) - Closed Specialty Diagnoses / Procedures Referred By Kadie casillas Referred To Contact Internal Medicine-Endocrinology, Diabetes & Metabolism / Diabetes Services Diagnoses FU DM, type 2-4 months per 04/05/22 lw Procedures DM FOLLOW UP Aba Espinoza MD [address] [place] [address] Phone: tel: fax: Fili Sanchez MD [address] [place] [address] Phone: tel: fax: Referral ID Status Reason Start Date Expiration Date Visits Re quested Visits Authorized [id number] Closed 08/04/2022 08/04/2023 99 99 Encounter Details Date Type Department Care Team (Late st Contact Info) Description 10/28/2022 9:00 AM EDT Office Visit [facility] [place] [address] [place] [address] Lakisha Gupta, JAY [address] [address] Type 2 diabetes mellitus with diabetic nephropathy, with long-term current use of insulin (HCC) (Primary Dx); Hypertension associated with diabetes (HCC) (HCC); Severe obesity (BMI 35.0-39.9) with comorbidity (HCC); Dyslipidemia associated with type 2 diabetes mellitus (HCC) (HCC); Encounter for long-term (current) use of medications; Long-term insulin use (HCC); Type 2 diabetes mellitus with microalbuminuria, with long-term current use of insulin (HCC) Social History Tobacco Use Types Packs/Day [...] Sign Reading Time Taken Comments Blood Pressure 124/73 10/28/2022 8:57 AM EDT Pulse 64 10/28/2022 8:57 AM EDT Temperature - - Respiratory Rate 16 10/28/2022 8:57 AM EDT Oxygen Saturation - - Inhaled Oxygen Concentration - - Weight 123.4 kg (272 lb) 10/28/2022 8:57 AM EDT Height 185.4 cm (6' 1 ) 10/28/2022 8:57 AM EDT Body Mass Index 35.89 10/28/2022 8:57 AM EDT documented in this encounter Ordered Prescriptions Prescription Sig Dispense Quantity Refills Last Filled Start Date End Date semaglutide 0.25 mg or 0.5 mg (2 mg/3 mL) SubQ Pen Injector Subcutaneous (Inject under the skin) 0.5 mg once a week. 9 mL 10/28/2022 empagliflozin (JARDIANCE) 25 mg Oral Tablet Take 1 Tablet by mouth daily. 30 Tablet 5 10/28/2022 4 BASAGLAR KWIKPEN U-100 INSULIN 100 unit/mL (3 mL) SubQ Insulin Pen Subcutaneous (Inject under the skin) 14 Units every evening. 15 mL 10/28/2022 3 documented in this encounter Progress Notes * Lakisha Gupta, DIE FILER - 10/28/2022 9:00 AM EDT Diabetes Associated symptoms include arthralgias and coughing. Dane Ray is a 72 y.o. male who presents today for follow up Diabetes Mellitus since 2003. He is here for follow up. He was last seen in March, 7 months ago. Did not come for follow up asdirected. Current diabetes regimen includes: Glipizide ER 5 mg a day before breakfast Jardiance 25 mg a day Basaglar 14 units every evening. Using Rianna: just started it last night, sugar was in the 200s, not testing previous to that. Review of Systems Eyes: Negative. Respiratory: Positive for cough and shortness of breath. Cardiovascular: Positive for leg swelling. Musculoskeletal: Positive for arthralgias and back pain. Objective Vitals: 10/28/22 0857 BP: 124/73 Pulse: 64 Resp: 16 Weight: 272 lb (123.4 kg) Height: 6' 1 (1.854 m) Body mass index is 35.89 kg/m??. Objective: Physical Exam Vitals reviewed. Constitutional: [...] Type 2 UnControlled with CKD 3 Plan: Continue: -Glipizide ER 5 mg a day - Basaglar 12 units a day. - Jardiance 25 mg a day. Tolerating well. - Call if BS less than 80 -Continue Freestyle rianna. Take Ozempic 0.25 mg subcutaneous once a [...] Follows with Cardiology. 3. Dyslipidemia: currently taking simvastatin 40 mg daily. Goal LDL of less than 55 with hx of CAD will need at least a moderate intensity statin, he states his college hire in [place] changed his statin, will look at bottle when he gets home and let us know, will defer to CV per pt request. 4. 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 * Kusum Tripp MA - 10/28/2022 9:00 AM EDT Patient tests using rianna 2 daily Refills not needed Pharmacy verified documented in this encounter Miscellaneous Notes * Patient Instructions - Lakisha Gupta APRN - 10/28/2022 9:00 AM EDT Test sugars at least twice a day at different times and call office if having low sugars or other issues. Take Ozempic 0.25 mg subcutaneous once a week for 4 weeks, increase to Ozempic 0.5 mg once a week until your next office visit here. Stop taking Ozempic and call the office if experiencing severe nausea, vomiting, or abdominal pain. Patient informed of indications, actions and side effects of ozempic including but not limited to mild nausea, vomiting, constipation/diarrhea. Also, instructed patient to seek medical attention for symptoms of pancreatitis such as new onset of abdominal pain, moderate to severe nausea and vomiting, diarrhea or yellowing of the skin. This class of drug is contraindicated in patients with a personal or family history of Medullary thyroid cancer and in patients with multiple Endocrine Neoplasia. Call the office for new new symptoms of lump in neck, difficulty swallowing or persistent hoarseness. documented in this encounter Plan of Treatment Upcoming Encounters Date Type Department Care Team (Late st Contact Info) Description 04/26/2024 9:00 AM EDT Office Visit [facility] Nephrology [place] [address] [facility] [address] Julio Silva MD [address] [facility] [place] [address] documented as of this encounter Visit Diagnoses Diagnosis Type 2 diabetes mellitus with diabetic nephropathy, with long-term current use of insulin (HCC)- Primary Hypertension associated with diabetes (HCC) Type II or unspecified type diabetes mellitus with other specified manifestations, not stated as uncontrolled Severe obesity (BMI 35.0-39.9) with comorbidity (HCC) Dyslipidemia associated with type 2 diabetes mellitus (HCC) Type II or unspecified type diabetes mellitus with other specified manifestations, not stated as uncontrolled Encounter for long-term (current) use of medications Encounter for long-term (current) use of other medications Long-term insulin use (HCC) Encounter for long-term (current) use of insulin Type 2 diabetes mellitus with microalbuminuria, with long-term current use of insulin (HCC) documented in this encounter Discontinued Medications Medication Sig Discontinue Reason Start Date End Da te metFORMIN (GLUCOPHAGE) 1,000 mg Oral Tablet Take 1 Tablet by mouth 2 times daily. Side effects 09/23/2022 10/28/2022 BASAGLAR KWIKPEN U-100 INSULIN 100 unit/mL (3 mL) SubQ Insulin Pen Subcutaneous (Inject under the skin) 12 Units every evening. Reorder 07/02/2022 10/28/2022 empagliflozin (JARDIANCE) 25 mg Oral Tablet TAKE 1 TABLET BY MOUTH EVERY DAY Reorder 10/12/2022 10/28/2022 documented as of this encounter Orders Nursing Count Last Ordered Date First Orde red Date EXTERNAL RESULTS REQUEST 1 10/28/2022 documented in this encounter Care Teams Floor Clerk Relationship Specialty Start Date End Date Aba Espinoza MD [address] [facility] [address] PCP - General Family Medicine 07/27/16 Fili Sanchez MD [address] [facility] [address] [place] [address] Internal Medicine-Endocrinology, Diabetes & Metabolism 04/11/14 documented as of this encounter
--- OUTSIDE RECORDS SUMMARY | 2024-01-18 14:53 | XMS_ITS | Encounter Summary ---
Author Organization [facility] [place] [address] Care Team Providers Care Desolderer Name Role Phone Fili Sanchez MD Unavailable [phone] Aba Espinoza MD Primary Care Provider [phone] Encounter Details Date Type Department Care Team (Latest Contact Info) Description 03/31/2022 Travel Social History Tobacco Use Types Packs/Day [...] Description 04/26/2024 9:00 AM EDT Office Visit [facility] Nephrology [place] [address] [facility] [place] [address] Julio Silva MD [address] [place] [address] documented as of this encounter Visit Diagnoses Not on filedocumented in this encounter Care Teams Desolderer Relationship Specialty Start Date End Date Aba Espinoza MD [address] [place] [address] PCP - General Family Medicine 07/27/16 Fili Sanchez MD [address] [facility] [address] [place] [address] Internal Medicine-Endocrinology, Diabetes & Metabolism 04/11/14 documented as of this encounter
--- OUTSIDE RECORDS SUMMARY | 2024-01-18 14:53 | XMS_ITS | Encounter Summary ---
Author Organization [facility] [place] [address] Care Team Providers Care Asic Design Engineer Name Role Phone Fili Sanchez MD Unavailable [phone] Aba Espinoza MD Primary Care Provider [phone] Encounter Details Date Type Department Care Team (Late st Contact Info) Description 09/23/[address] [facility] [address] [facility] [address] [place] [address] Sonali Don RMA Social History Tobacco Use Types Packs/Day Years [...] Date metFORMIN (GLUCOPHAGE) 1,000 mg Oral Tablet Take 1 Tablet by mouth 2 times daily. 180 Tablet 1 09/23/2022 10/28/2022 documented in this encounter Plan of Treatment Upcoming Encounters Date Type Department Care Team (Late st Contact Info) Description 04/26/2024 9:00 AM EDT Office Visit [facility] Nephrology [place] [address] [place] [address] Julio Silva MD [address] [place] [address] documented as of this encounter Visit Diagnoses Not on filedocumented in this encounter Discontinued Medications Medication Sig Discontinue Reason Start Date End Da te metFORMIN (GLUCOPHAGE) 1,000 mg Oral Tablet TAKE 1 TABLET BY MOUTH TWICE A DAY Reorder 09/03/2022 09/23/2022 documented as of this encounter Care Teams Asic Design Engineer Relationship Specialty Start Date End Date Aba Espinoza MD [address] [place] [address] PCP - General Family Medicine 07/27/16 Fili Sanchez MD [address] [facility] [address] [place] [address] Internal Medicine-Endocrinology, Diabetes & Metabolism 04/11/14 documented as of this encounter
--- OUTSIDE RECORDS SUMMARY | 2024-01-18 14:53 | XMS_ITS | Encounter Summary ---
Author Organization [facility] [place] [address] Care Team Providers Care Development Eng Name Role Phone Fili Sanchez MD Unavailable [phone] Aba Espinoza MD Primary Care Provider [phone] Reason for Visit * Reason Comments Medication Refill Encounter Details Date Type Department Care Team (Late st Contact Info) Description 05/19/2022 Refill [facility] [place] [address] [facility] [address] [place] [address] Fili Sanchez MD [address] [address] Medication Refill Social History Tobacco [...] Refills Last Filled Start Date End Date JARDIANCE 25 mg Oral Tablet TAKE 1 TABLET BY MOUTH EVERY DAY 90 Tablet 05/21/2022 09/07/2022 documented in this encounter Miscellaneous Notes * Telephone Encounter - Katt Wetzel CPhT - 05/21/2022 9:37 AM EDT Jardiance- Medication Refill Protocol passed. [facility] Action: Approved 90-day supply due to scheduled appointment on 08/04/22. documented in this encounter Plan of Treatment Upcoming Encounters Date Type Department Care Team (Late st Contact Info) Description 04/26/2024 9:00 AM EDT Office Visit [facility] Nephrology [place] [address] [place] [address] Julio Silva MD [address] [facility] [address] [place] [address] documented as of this encounter Visit Diagnoses Not on filedocumented in this encounter Discontinued Medications Medication Sig Discontinue Reason Start Date End Da te empagliflozin (JARDIANCE) 25 mg Oral Tablet Take 1 Tablet by mouth daily. 11/26/2021 05/21/2022 documented as of this encounter Care Teams Development Eng Relationship Specialty Start Date End Date Aba Espinoza MD [address] [place] [address] PCP - General Family Medicine 07/27/16 Fili Sanchez MD [address] [facility] [address] [place] [address] Internal Medicine-Endocrinology, Diabetes & Metabolism 04/11/14 documented as of this encounter
--- OUTSIDE RECORDS SUMMARY | 2024-01-18 14:53 | XMS_ITS | Encounter Summary ---
Author Organization [place] [address] Care Team Providers Care New Car Inspector Name Role Phone Fili Sanchez MD Unavailable [phone] Aba Espinoza MD Primary Care Provider Reason for Visit * Reason Onset Date Comments Follow-up 07/28/2022 Encounter Details Date Type Department Care Team (Late st Contact Info) Description 07/28[facility]2022 [facility] [address] [address] Fili Sanchez MD [address] [address] Follow-up Social History Tobacco Use Types Packs/Day Years [...] encounter Miscellaneous Notes * Telephone Encounter - Farhana Correa - 07/28/2022 12:09 PM EDT Left message to schedule follow up appt documented in this encounter Plan of Treatment Upcoming Encounters Date Type Department Care Team (Late st Contact Info) Description 04/26/2024 9:00 AM EDT Office Visit [facility] Nephrology [place] [address] [place] [address] Julio Silva MD [address] [place] [address] documented as of this encounter Visit Diagnoses Not on filedocumented in this encounter Care Teams New Car Inspector Relationship Specialty Start Date End Date Aba Espinoza MD [address] [place] [address] PCP - General Family Medicine 07/27/16 Fili Sanchez MD [address] [facility] [address] [place] [address] Internal Medicine-Endocrinology, Diabetes & Metabolism 04/11/14 documented as of this encounter
--- OUTSIDE RECORDS SUMMARY | 2024-01-18 14:53 | XMS_ITS | Encounter Summary ---
Author Organization [place] [address] Care Team Providers Care Welding Equipment Sales Representative Name Role Phone Fili Sanchez MD Unavailable [phone] Aba Espinoza MD Primary Care Provider [phone] Reason for Visit * Reason Comments Diabetes Type 2 * Consultation (Routine) - Closed Specialty Diagnoses / Procedures Referred By Kadie casillas Referred To Contact Internal Medicine-Endocrinology, Diabetes & Metabolism / Diabetes Services Diagnoses Diabetes mellitus, type 2 (HCC) dm ty 2/ 3-4 months per 02/20/21-bm Procedures DM FOLLOW UP Aba Espinoza MD [address] [place] [address] Phone: tel: fax: Fili Sanchez MD [address] [facility] [address] [place] [address] Phone: tel: fax: Referral ID Status Reason Start Date Expiration Date Visits Re quested Visits Authorized [id number] Closed 06/05/2021 06/05/2022 99 99 Encounter Details Date Type Department Care Team (Late st Contact Info) Description 04/05/2022 9:00 AM EST [facility] [place] [facility] [place] [address] [facility] [address] [place] [address] Fili Sanchez MD [address] [facility] [address] [place] [address] Type 2 diabetes mellitus with diabetic nephropathy, with long-term current use of insulin (HCC) (Primary Dx); Hypertension associated with diabetes (HCC) (HCC); Dyslipidemia Social History Tobacco Use Types Packs/Day [...] Recorded In the last 10 days, have abraham dotson been in contact with someone who was confirmed or suspected to have Coronavirus/COVID-19? No / Unsure 04/02/2022 8:06 AM EST documented as of this encounter Last Filed Vital Signs Vital Sign Reading Time Taken Comments Blood Pressure 113/65 04/05/2022 9:14 AM EST Pulse 67 04/05/2022 9:14 AM EST Temperature - - Respiratory Rate 15 04/05/2022 9:14 AM EST Oxygen Saturation - - Inhaled Oxygen Concentration - - Weight 121.6 kg (268 lb) 04/05/2022 9:14 AM EST Height 185.4 cm (6' 1 ) 04/05/2022 9:14 AM EST Body Mass Index 35.36 04/05/2022 9:14 AM EST documented in this encounter Progress Notes * Fili Sanchez MD - 04/05/2022 9:00 AM EST Diabetes Associated symptoms include coughing. Dane Ray is a 71 y.o. male who presents today for follow up Diabetes Mellitus since 2003. He is here for follow up. Since the last appointment he was admitted 10/28-11/05 at [facility] and underwent multivessel bypass with Dr. Rob Higuera.Recovering well. Current diabetes regimen includes Metformin 1000 mg twice a day. Glipizide ER 5 mg a day Jardiance 25 mg a day Basaglar 10 units a day Using Rianna 2. Though data not available to view. Denies lows. No BS less than 80 or higher than 200 Review of Systems Constitutional: Positive for appetite change. HENT: Positive for dental problem. Eyes: Negative. Respiratory: Positive for cough. Objective Vitals: 04/05/22 0914 BP: 113/65 Pulse: 67 Resp: 15 Weight: 268 lb (121.6 kg) Height: 6' 1 (1.854 m) Objective: Physical Exam Constitutional: Appearance: He is well-developed. HENT: Head: Normocephalic and atraumatic. Neck: Thyroid: No thyromegaly. Vascular: No JVD. Trachea: No tracheal deviation. Cardiovascular: Rate and Rhythm: Normal rate and regular rhythm. Heart sounds: Normal heart sounds. Pulmonary: Effort: Pulmonary effort is normal. No respiratory distress. Breath sounds: Normal breath sounds. No wheezing. Musculoskeletal: Right lower leg: Edema present. Skin: General: Skin is warm and dry. Neurological: Mental Status: He is alert and oriented to person, place, and time. Psychiatric: Behavior: Behavior normal. Thought Content: Thought content normal. Judgment: Judgment normal. Laboratory: Lab Results Component Value Date HGBA1C 7.7 (H) 04/02/2022 Lab Results Component Value Date CREATININE 1.42 (H) 04/02/2022 No results found for: TSHREFLEX Lab Results Component Value Date ALT 18 04/02/2022 AST 21 04/02/2022 ALKPHOS 65 04/02/2022 Lab Results Component Value Date URINEMICROAL <12.0 04/02/2022 Lab Results Component Value Date CHOLESTEROL 122 04/02/2022 Lab Results Component Value Date HDL 38 (L) 04/02/2022 Lab Results Component Value Date LDLCALC 57 04/02/2022 Lab Results Component Value Date TRIG 158 (H) 04/02/2022 No results found for: CHOLHDL Assessment and Plan: 1. Diabetes Mellitus Type 2 UnControlled with CKD 3 Plan: -Continue metformin -Glipizide ER 5 mg a day - Basaglar 12 units a day. Increase 2 units every week till BS are less than 130 consistently in the morning. - Jardiance 25 mg a day. Tolerating well. - Call if BS less than 80 -Continue [employer]. Helped to set up to share data with us. -Hypoglycemic symptoms, prevention and treatment discussed in detail. - Advised to keep glucose tab and hard candy with him all the time -unable to use actos due to HF. -check fingerstick 2 times a day.Diabetes Health Maintance: Eye exam: Advised yearly eye exam. States last exam in 2018 in [place]. Will call for report. Foot exam: 04/08 MATT/ARB:Losartan ASA: 81 mg once a day. Smoking: former smoker 2. HTN: Monitor BP at home. Follows with Cardiology. 3. Dyslipidemia: currently taking simvastatin 40 mg daily. Goal LDL of 70. At goal. 4. CAD with low EF Return in about 4 months (around 08/03/2022). * Abril Milton LPN - 04/05/2022 9:00 AM EST Patient using smart phone as [email or web address] reader.Patient's BS are not viewable in [employer]. Patient was already setup to Share data with [facility] under connected apps but no BS readings are viewable in [employer]. MA had sent patient [employer] invite this am. Had patient accept [employer] invite, scanned [employer] 2 sensor and then BS history viewable in [employer] through today 04-05-22. documented in this encounter Miscellaneous Notes * Patient Instructions - Fili Sanchez MD - 04/05/2022 9:00 AM EST Basaglar 12 units every day. Increase 2 units every week till BS are less than 130 consistently in the morning. documented in this encounter Plan of Treatment Upcoming Encounters Date Type Department Care Team (Late st Contact Info) Description 04/26/2024 9:00 AM EDT Office Visit [facility] Nephrology [place] [address] [place] [address] Julio Silva MD [address] [place] [address] documented as of this encounter Visit Diagnoses Diagnosis Type 2 diabetes mellitus with diabetic nephropathy, with long-term current use of insulin (HCC)- Primary Hypertension associated with diabetes (HCC) Type II or unspecified type diabetes mellitus with other specified manifestations, not stated as uncontrolled Dyslipidemia Other and unspecified hyperlipidemia documented in this encounter Discontinued Medications Medication Sig Discontinue Reason Start Date End Da te carvediloL (COREG) 6.25 mg Oral Tablet Take 3.125 mg by mouth 2 times daily. Dose adjustment 03/23/2021 04/05/2022 carvedilol (COREG) 3.125 mg Oral Tablet Take 6.25 mg by mouth 2 times daily. Takes half dose twice daily Dose adjustment 04/05/2022 documented as of this encounter Historical Medications * This list may reflect changes made after this encounter. carvediloL (COREG) 12.5 mg Oral Tablet 12.5 mg 2 times daily. Take an additonal 6.25 every evening 03/26/2022 4 added in this encounter Care Teams Welding Equipment Sales Representative Relationship Specialty Start Date End Date Aba Espinoza MD [address] [place] [address] PCP - General Family Medicine 07/27/16 Fili Sanchez MD [address] [facility] [address] [place] [address] Internal Medicine-Endocrinology, Diabetes & Metabolism 04/11/14 documented as of this encounter
--- OUTSIDE RECORDS SUMMARY | 2024-01-18 14:53 | XMS_ITS | Encounter Summary ---
Author Organization [place] [address] Care Team Providers Care Fourdrinier Wire Weaver Name Role Phone Fili Sanchez MD Unavailable [phone] Aba Espinoza MD Primary Care Provider [phone] Reason for Visit * Reason Comments Medication Refill Encounter Details Date Type Department Care Team (Late st Contact Info) Description 10/12/2022 Refill [facility]icians [facility] Diabetes [place] [address] [address] Fili Sanchez MD [address] [address] Medication Refill Social History Tobacco [...] TABLET BY MOUTH EVERY DAY 30 Tablet 5 10/12/2022 10/28/2022 documented in this encounter Plan of Treatment Upcoming Encounters Date Type Department Care Team (Late st Contact Info) Description 04/26/2024 9:00 AM EDT Office Visit [facility] Nephrology [place] [address] [place] [address] Julio Silva MD [address] [place] [address] documented as of this encounter Visit Diagnoses Not on filedocumented in this encounter Discontinued Medications Medication Sig Discontinue Reason Start Date End Da te empagliflozin (JARDIANCE) 25 mg Oral Tablet TAKE 1 TABLET BY MOUTH EVERY DAY 09/07/2022 10/12/2022 documented as of this encounter Care Teams Fourdrinier Wire Weaver Relationship Specialty Start Date End Date Aba Espinoza MD [address] [facility] [place] [phone] PCP - General Family Medicine 07/27/16 Fili Sanchez MD [address] [facility] [address] [place] [phone] Internal Medicine-Endocrinology, Diabetes & Metabolism 04/11/14 documented as of this encounter
--- OUTSIDE RECORDS SUMMARY | 2024-01-18 14:53 | XMS_ITS | Encounter Summary ---
Author Organization [place] [address] Care Team Providers Care Field Manager Name Role Phone Fili Sanchez MD Unavailable [phone] Aba Espinoza MD Primary Care Provider [phone] Reason for Visit * Reason Onset Date Comments Referral 09/08/2022 No external shakila rds at facility Encounter Details Date Type Department Care Team (Late st Contact Info) Description 09/08/2022 Telephone SEP Quality Transformation [address] [place] [id number] Tri Soares RMA Referral (No external records at facility) Social History Tobacco Use Types Packs/Day Years [...] Telephone Encounter - Tri Soares RMA - 09/08/2022 1:03 PM EDT Images from the original note were not included. Patient has not had Colorectal Cancer Screening at the requested facility. documented in this encounter Plan of Treatment Upcoming Encounters Date Type Department Care Team (Late st Contact Info) Description 04/26/2024 9:00 AM EDT Office Visit [facility] Nephrology [place] [address] [place] [address] Julio Silva MD [address] [facility] [address] [place] [address] documented as of this encounter Visit Diagnoses Not on filedocumented in this encounter Care Teams Field Manager Relationship Specialty Start Date End Date Aba Espinoza MD [address] [place] [address] PCP - General Family Medicine 07/27/16 Fili Sanchez MD [address] [facility] [address] [place] [address] Internal Medicine-Endocrinology, Diabetes & Metabolism 04/11/14 documented as of this encounter
--- OUTSIDE RECORDS SUMMARY | 2024-01-18 14:54 | XMS_ITS | Encounter Summary ---
Author Organization [place] [address] Care Team Providers Care Mental Health Case Manager Name Role Phone Fili Sanchez MD Unavailable [phone] Aba Espinoza MD Primary Care Provider [phone] Encounter Details Date Type Department Care Team (Latest Contact Info) Description 01/29/2022 7:00 AM EST - 01/29/2022 11:59 PM EST Hospital Encounter [facility] Cardiac Rehab [place] [address] [place] [address] Discharge Disposition: Home or Self [...] suspected to have Coronavirus/COVID-19? No / Unsure 01/27/2022 8:20 AM EST documented as of this encounter Medications at Time of Discharge allopurinoL (ZYLOPRIM) 100 mg Oral Tablet 100 mg daily. TAKES IN EVENING 06/22/2019 aspirin (ASPIRIN) 81 mg Oral Tablet, Chewable Take 1 Tab by mouth daily. 30 Tab 0 04/11/2014 Blood Sugar Diagnostic (ACCU-CHEK GUIDE TEST STRIPS) [facility] Strip Use to test blood sugars daily. Dx Code:E11.65 100 Strip 3 11/12/2020 escitalopram oxalate (LEXAPRO) 20 mg Oral Tablet Take by mouth daily. flash glucose sensor (FREESTYLE THIEN 2 SENSOR) [facility] Kit 1 Each by [facility].(Non-Drug ; Combo Route) route every 14 days. 6 Kit 1 12/18/2021 FREESTYLE THIEN 2 READER [facility] Use as directed to test BS. DX code: E11.21 1 Each 12/18/2021 magnesium oxide 400 mg magnesium Oral Capsule Take by mouth. Take 2 times daily nitroGLYCERIN (NITROLINGUAL) 400 mcg/spray TL [place], Non-Aerosol Place 1 [place] under the tongue every 5 minutes as [...] glucose sensor (FREESTYLE THIEN 14 DAY SENSOR) [facility] Kit 1 Each by [facility].(Non-Drug ; Combo Route) route every 14 days. 3 Kit 12/16/2021 10/19/2023 metFORMIN (GLUCOPHAGE) 1,000 mg Oral Tablet Take 1 Tablet by mouth 2 times daily. 180 Tablet 1 08/05/2021 03/03/2022 documented as of this encounter Discharge Disposition Disposition Code Departure Means Destination Home or Self Care documented in this encounter Plan of Treatment Upcoming Encounters Date Type Department Care Team (Late st Contact Info) Description 04/26/2024 9:00 AM EDT Office Visit [facility] Nephrology [place] [address] [place] [address] Julio Silva MD [address] [place] [address] documented as of this encounter Visit Diagnoses Not on filedocumented in this encounter Care Teams Mental Health Case Manager Relationship Specialty Start Date End Date Aba Espinoza MD [address] [place] [address] PCP - General Family Medicine 07/27/16 Fili Snachez MD [address] [facility] [address] [place] [address] Internal Medicine-Endocrinology, Diabetes & Metabolism 04/11/14 documented as of this encounter
--- OUTSIDE RECORDS SUMMARY | 2024-01-18 14:54 | XMS_ITS | Encounter Summary ---
Author Organization [place] [address] Care Team Providers Care Tire Design Engineer Name Role Phone Fili Sanchez MD Unavailable [phone] Aba Espinoza MD Primary Care Provider [phone] Reason for Visit * Reason Comments Medication Refill Encounter Details Date Type Department Care Team (Late st Contact Info) Description 03/03/2022 Refill [facility] Physicians [facility] [address] [facility] [address] [place] [address] Fili Sanchez MD [address] [address] Medication Refill Social History Tobacco [...] suspected to have Coronavirus/COVID-19? No / Unsure 03/01/2022 11:43 AM EST documented as of this encounter Ordered Prescriptions Prescription Sig Dispense Quantity Refills Last Filled Start Date End Date metFORMIN (GLUCOPHAGE) 1,000 mg Oral Tablet TAKE 1 TABLET BY MOUTH TWICE A DAY 180 Tablet 03/03/2022 06/01/2022 documented in this encounter Miscellaneous Notes * Telephone Encounter - Trisha Feliz CPhT - 03/03/2022 2:46 PM EST metFORMIN Medication Refill Protocol passed. [facility] Action: Approved 90-day supply due to scheduled appointment on 04/05/22. documented in this encounter Plan of Treatment Upcoming Encounters Date Type Department Care Team (Late st Contact Info) Description 04/26/2024 9:00 AM EDT Office Visit [facility] Nephrology [place] [address] [facility] [address] [facility] [address] [place] [address] Julio Silva MD [address] [facility] [address] [address] [place] [address] documented as of this encounter Visit Diagnoses Not on filedocumented in this encounter Discontinued Medications Medication Sig Discontinue Reason Start Date End Da te metFORMIN (GLUCOPHAGE) 1,000 mg Oral Tablet Take 1 Tablet by mouth 2 times daily. 08/05/2021 03/03/2022 documented as of this encounter Care Teams Tire Design Engineer Relationship Specialty Start Date End Date Aba Espinoza MD [address] [place] [phone] PCP - General Family Medicine 07/27/16 Fili Sanchez MD [address] [facility] [address] [place] [address] Internal Medicine-Endocrinology, Diabetes & Metabolism 04/11/14 documented as of this encounter
--- OUTSIDE RECORDS SUMMARY | 2024-01-18 14:54 | XMS_ITS | Encounter Summary ---
Author Organization [place] [address] Care Team Providers Care Overcaster Name Role Phone Fili Sanchez MD Unavailable [phone] Aba Espinoza MD Primary Care Provider [phone] Reason for Visit * Rehabilitation (Routine) - Closed Specialty Diagnoses / Procedures Referred By Kadie casillas Referred To Contact Cardiology Diagnoses S/P CABG (coronary artery bypass graft) Aba Espinoza MD [address] [place] [address] [place] [address] Phone: tel: fax: [facility] Cardiac Rehab [place] [address] [place] [address] Phone: tel: fax: Referral ID Status Reason Start Date Expiration Date Visits Re quested Visits Authorized [id number] Closed 12/14/2021 12/14/2022 36 36 Encounter Details Date Type Department Care Team (Latest Contact Info) Description 02/17/2022 7:00 AM EST - 02/17/2022 11:59 PM EST Hospital Encounter [facility] Cardiac Rehab [place] [address] [place] [address] Discharge Disposition: Home or Self [...] suspected to have Coronavirus/COVID-19? No / Unsure 02/01/2022 10:39 AM EST documented as of this encounter Medications at Time of Discharge allopurinoL (ZYLOPRIM) 100 mg Oral Tablet 100 mg daily. TAKES IN EVENING 06/22/2019 aspirin (ASPIRIN) 81 mg Oral Tablet, Chewable Take 1 Tab by mouth daily. 30 Tab 0 04/11/2014 Blood Sugar Diagnostic (ACCU-CHEK GUIDE TEST STRIPS) [facility] Strip Use to test blood sugars daily. Dx Code:E11.65 100 Strip 3 11/12/2020 escitalopram oxalate (LEXAPRO) 20 mg Oral Tablet Take by mouth daily. flash glucose sensor (FREESTYLE THIEN 2 SENSOR) [facility] Kit 1 Each by [facility].(Non-Drug ; Combo Route) route every 14 days. 6 Kit 1 12/18/2021 FREESTYLE THIEN 2 READER [facility] Use as directed to test BS. DX code: E11.21 1 Each 12/18/2021 magnesium oxide 400 mg magnesium Oral Capsule Take by mouth. Take 2 times daily nitroGLYCERIN (NITROLINGUAL) 400 mcg/spray TL [place], Non-Aerosol Place 1 [place] under the tongue every 5 minutes as [...] sensor (FREESTYLE THIEN 14 DAY SENSOR) [facility] Kit 1 Each by [facility].(Non-Drug ; Combo Route) route every 14 days. [...] 9:00 AM EDT Office Visit [facility] Nephrology [place] [address] [place] [address] Julio Silva MD [address] [place] [address] documented as of this encounter Visit Diagnoses Not on filedocumented in this encounter Care Teams Overcaster Relationship Specialty Start Date End Date Aba Espinoza MD [address] [place] [phone] PCP - General Family Medicine 07/27/16 Fili Sanchez MD [address] [facility] [address] [place] [address] Internal Medicine-Endocrinology, Diabetes & Metabolism 04/11/14 documented as of this encounter
--- OUTSIDE RECORDS SUMMARY | 2024-01-18 14:54 | XMS_ITS | Encounter Summary ---
Author Organization [place] [address] Care Team Providers Care Web Content Developer Name Role Phone Fili Sanchez MD Unavailable [phone] Aba Espinoza MD Primary Care Provider [phone] Encounter Details Date Type Department Care Team (Latest Contact Info) Description 03/12/2022 7:00 AM EST - 03/12/2022 11:59 PM EST Hospital Encounter [facility] Cardiac Rehab [place] [address] [address] [facility] [place] [address] Discharge Disposition: Home or Self [...] suspected to have Coronavirus/COVID-19? No / Unsure 03/12/2022 9:17 AM EST documented as of this encounter Medications at Time of Discharge allopurinoL (ZYLOPRIM) 100 mg Oral Tablet 100 mg daily. TAKES IN EVENING 06/22/2019 aspirin (ASPIRIN) 81 mg Oral Tablet, Chewable Take 1 Tab by mouth daily. 30 Tab 0 04/11/2014 Blood Sugar Diagnostic (ACCU-CHEK GUIDE TEST STRIPS) [facility] Strip Use to test blood sugars daily. Dx Code:E11.65 100 Strip 3 11/12/2020 escitalopram oxalate (LEXAPRO) 20 mg Oral Tablet Take by mouth daily. flash glucose sensor (FREESTYLE THIEN 2 SENSOR) [facility] Kit 1 Each by [facility].(Non-Drug ; Combo Route) route every 14 days. 6 Kit 1 12/18/2021 FREESTYLE THIEN 2 READER [facility] Use as directed to test BS. DX code: E11.21 1 Each 12/18/2021 magnesium oxide 400 mg magnesium Oral Capsule Take by mouth. Take 2 times daily nitroGLYCERIN (NITROLINGUAL) 400 mcg/spray TL [place], Non-Aerosol Place 1 [place] under the tongue every 5 minutes as [...] sensor (FREESTYLE THIEN 14 DAY SENSOR) [facility] Kit 1 Each by [facility].(Non-Drug ; Combo Route) route every 14 days. [...] Description 04/26/2024 9:00 AM EDT Office Visit [facility] Nephrology [place] [address] [place] [address] Julio Silva MD [address] [place] [address] documented as of this encounter Visit Diagnoses Not on filedocumented in this encounter Care Teams Web Content Developer Relationship Specialty Start Date End Date Aba Espinoza MD [address] [place] [address] PCP - General Family Medicine 07/27/16 Fili Sanchez MD [address] [facility] [address] [place] [address] Internal Medicine-Endocrinology, Diabetes & Metabolism 04/11/14 documented as of this encounter
--- OUTSIDE RECORDS SUMMARY | 2024-01-18 14:54 | XMS_ITS | Encounter Summary ---
Author Organization [place] [address] Care Team Providers Care Database Report Writer Name Role Phone Fili Sanchez MD Unavailable [phone] Aba Espinoza MD Primary Care Provider [phone] Encounter Details Date Type Department Care Team (Latest Contact Info) Description 03/19/2022 7:00 AM EST - 03/19/2022 11:59 PM EST Hospital Encounter [facility] Cardiac Rehab [place] [address] [facility] [facility] [place] [address] Discharge Disposition: Home or Self [...] Blood Sugar Diagnostic (ACCU-CHEK GUIDE TEST STRIPS) [facility] Strip Use to test blood sugars daily. Dx Code:E11.65 100 Strip 3 11/12/2020 escitalopram oxalate (LEXAPRO) 20 mg Oral Tablet Take by mouth daily. flash glucose sensor (FREESTYLE THIEN 2 SENSOR) [facility] Kit 1 Each by [facility].(Non-Drug ; Combo Route) route every 14 days. 6 Kit 1 12/18/2021 FREESTYLE THIEN 2 READER [facility] Use as directed to test BS. DX code: E11.21 1 Each 12/18/2021 magnesium oxide 400 mg magnesium Oral Capsule Take by mouth. Take 2 times daily nitroGLYCERIN (NITROLINGUAL) 400 mcg/spray TL [place], Non-Aerosol Place 1 [place] under the tongue every 5 minutes as [...] glucose sensor (FREESTYLE THIEN 14 DAY SENSOR) [facility] Kit 1 Each by [facility].(Non-Drug ; Combo Route) route every 14 days. [...] AM EDT Office Visit [facility] Nephrology [place] [address] [place] [address] Julio Silva MD [address] [place] [address] documented as of this encounter Procedures Procedure Name Priority Date/Time Associated Diagnosis Comments GLUCOSE METER POC Routine 03/19/2022 8:0 9 AM EST documented in this encounter Results * (ABNORMAL) GLUCOSE METER POC (03/19/2022 8:09 AM EST) [facility] Glucose Meter POC 145(H) 70 - 100 mg/dL 03/19/2022 8:25 AM EST [facility] Sample Type Capillary 03/19/2022 8:25 AM EST [facility] Patient Status Non-Critical Patient 03/19/2022 8:25 AM EST [facility] Blood BLOOD SPECIMEN / Unknown 03/19/2022 8:09 AM EST 03/19/2022 8:25 AM EST us Lab Test POINT OF CARE TEST ORDERABLES Fi nal Result Performing Organization Address City/State/[facility] Co de Phone Number [facility] [address] [place] [address] documented in this encounter Visit Diagnoses Not on filedocumented in this encounter Care Teams Database Report Writer Relationship Specialty Start Date End Date Aba Espinoza MD [address] [place] [address] PCP - General Family Medicine 07/27/16 Fili Sanchez MD [address] [facility] [address] [place] [address] Internal Medicine-Endocrinology, Diabetes & Metabolism 04/11/14 documented as of this encounter
--- OUTSIDE RECORDS SUMMARY | 2024-01-18 14:54 | XMS_ITS | Encounter Summary ---
Author Organization [place] [address] Care Team Providers Care Network Operations Project Manager Name Role Phone Fili Sanchez MD Unavailable [phone] Aba Espinoza MD Primary Care Provider [phone] Reason for Visit * Rehabilitation (Routine) - Closed Specialty Diagnoses / Procedures Referred By Kadie casillas Referred To Contact Cardiology Diagnoses S/P CABG (coronary artery bypass graft) Aba Espinoza MD [address] [place] [address] [place] [address] Phone: tel: fax: [facility] Cardiac Rehab [place] [address] [place] [address] Phone: tel: fax: Referral ID Status Reason Start Date Expiration Date Visits Re quested Visits Authorized [id number] Closed 12/14/2021 12/14/2022 36 36 Encounter Details Date Type Department Care Team (Latest Contact Info) Description 02/15/2022 7:00 AM EST - 02/15/2022 11:59 PM EST Hospital Encounter [facility] Cardiac Rehab [place] [address] [place] [address] Discharge Disposition: Home or Self [...] Blood Sugar Diagnostic (ACCU-CHEK GUIDE TEST STRIPS) [facility] Strip Use to test blood sugars daily. Dx Code:E11.65 100 Strip 3 11/12/2020 escitalopram oxalate (LEXAPRO) 20 mg Oral Tablet Take by mouth daily. flash glucose sensor (FREESTYLE THIEN 2 SENSOR) [facility] Kit 1 Each by [facility].(Non-Drug ; Combo Route) route every 14 days. 6 Kit 1 12/18/2021 FREESTYLE THIEN 2 READER [facility] Use as directed to test BS. DX code: E11.21 1 Each 12/18/2021 magnesium oxide 400 mg magnesium Oral Capsule Take by mouth. Take 2 times daily nitroGLYCERIN (NITROLINGUAL) 400 mcg/spray TL [place], Non-Aerosol Place 1 [place] under the tongue every 5 minutes as [...] glucose sensor (FREESTYLE THIEN 14 DAY SENSOR) [facility] Kit 1 Each by [facility].(Non-Drug ; Combo Route) route [...] EDT Office Visit [facility] Nephrology [place] [address] [place] [address] Julio Silva MD [address] [place] [address] documented as of this encounter Visit Diagnoses Not on filedocumented in this encounter Care Teams Network Operations Project Manager Relationship Specialty Start Date End Date Aba Espinoza MD [address] [place] [id number] PCP - General Family Medicine 07/27/16 Fili Sanchez MD [address] [facility] [address] [place] [address] Internal Medicine-Endocrinology, Diabetes & Metabolism 04/11/14 documented as of this encounter
--- OUTSIDE RECORDS SUMMARY | 2024-01-18 14:54 | XMS_ITS | Encounter Summary ---
Author Organization [facility] [place] [address] Care Team Providers Care Stoner Out Name Role Phone Fili Sanchez MD Unavailable [phone] Aba Espinoza MD Primary Care Provider [phone] Encounter Details Date Type Department Care Team (Latest Contact Info) Description 02/01/2022 Travel Social History Tobacco Use Types Packs/Day [...] Office Visit [facility] Nephrology [place] [address] [facility] [place] [address] Julio Silva MD [address] [place] [address] documented as of this encounter Visit Diagnoses Not on filedocumented in this encounter Care Teams Stoner Out Relationship Specialty Start Date End Date Aba Espinoza MD [address] [place] [address] [place] [address] PCP - General Family Medicine 07/27/16 Fili Sanchez MD [address] [facility] [address] [place] [address] Internal Medicine-Endocrinology, Diabetes & Metabolism 04/11/14 documented as of this encounter
--- OUTSIDE RECORDS SUMMARY | 2024-01-18 14:54 | XMS_ITS | Encounter Summary ---
Author Organization [place] [address] Care Team Providers Care Development Advisor Name Role Phone Fili Sanchez MD Unavailable [phone] Aba Espinoza MD Primary Care Provider [phone] Reason for Visit * Rehabilitation (Routine) - Closed Specialty Diagnoses / Procedures Referred By Kadie casillas Referred To Contact Cardiology Diagnoses S/P CABG (coronary artery bypass graft) Aba Espinoza MD [address] [place] [address] [place] [address] Phone: tel: fax: [facility] Cardiac Rehab [place] [address] [place] [address] Phone: tel: fax: Referral ID Status Reason Start Date Expiration Date Visits Re quested Visits Authorized [id number] Closed 12/14/2021 12/14/2022 36 36 Encounter Details Date Type Department Care Team (Latest Contact Info) Description 02/19/2022 7:00 AM EST - 02/19/2022 11:59 PM EST Hospital Encounter [facility] Cardiac Rehab [place] [address] [place] [address] Discharge Disposition: Home or Self [...] Blood Sugar Diagnostic (ACCU-CHEK GUIDE TEST STRIPS) [facility] Strip Use to test blood sugars daily. Dx Code:E11.65 100 Strip 3 11/12/2020 escitalopram oxalate (LEXAPRO) 20 mg Oral Tablet Take by mouth daily. flash glucose sensor (FREESTYLE THIEN 2 SENSOR) [facility] Kit 1 Each by [facility].(Non-Drug ; Combo Route) route every 14 days. 6 Kit 1 12/18/2021 FREESTYLE THIEN 2 READER [facility] Use as directed to test BS. DX code: E11.21 1 Each 12/18/2021 magnesium oxide 400 mg magnesium Oral Capsule Take by mouth. Take 2 times daily nitroGLYCERIN (NITROLINGUAL) 400 mcg/spray TL [place], Non-Aerosol Place 1 [place] under the tongue every 5 minutes as [...] glucose sensor (FREESTYLE THIEN 14 DAY SENSOR) [facility] Kit 1 Each by [facility].(Non-Drug ; [...] Description 04/26/2024 9:00 AM EDT Office Visit [facility] Nephrology [place] [address] [place] [address] Julio Silva MD [address] [place] [address] documented as of this encounter Visit Diagnoses Not on filedocumented in this encounter Care Teams Development Advisor Relationship Specialty Start Date End Date Aba Espinoza MD [address] [place] [id number] PCP - General Family Medicine 07/27/16 Fili Sanchez MD [address] [facility] [address] [place] [address] Internal Medicine-Endocrinology, Diabetes & Metabolism 04/11/14 documented as of this encounter
--- OUTSIDE RECORDS SUMMARY | 2024-01-18 14:54 | XMS_ITS | Encounter Summary ---
Author Organization [facility] [address] Care Team Providers Care City Dispatch Supervisor Name Role Phone Fili Sanchez MD Unavailable [phone] Aba Espinoza MD Primary Care Provider [phone] Encounter Details Date Type Department Care Team (Latest Contact Info) Description 03/08/2022 Travel Social History Tobacco Use Types Packs/Day [...] suspected to have Coronavirus/COVID-19? No / Unsure 03/08/2022 4:07 PM EST documented as of this encounter Plan of Treatment Upcoming Encounters Date Type Department Care Team (Late st Contact Info) Description 04/26/2024 9:00 AM EDT Office Visit [facility] Nephrology [place] [address] [facility] [place] [address] Julio Silva MD [address] [place] [address] documented as of this encounter Visit Diagnoses Not on filedocumented in this encounter Care Teams City Dispatch Supervisor Relationship Specialty Start Date End Date Aba Esp[place]za MD [address] [place] [address] [place] [address] PCP - General Family Medicine 07/27/16 Fili Sanchez MD [address] [facility] [address] [place] [address] Internal Medicine-Endocrinology, Diabetes & Metabolism 04/11/14 documented as of this encounter
--- OUTSIDE RECORDS SUMMARY | 2024-01-18 14:54 | XMS_ITS | Encounter Summary ---
Author Organization [facility] [place] [address] Care Team Providers Care Sales Representative [employer] Name Role Phone Fili Sanchez MD Unavailable [phone] Aba Espinoza MD Primary Care Provider [phone] Encounter Details Date Type Department Care Team (Latest Contact Info) Description 03/01/2022 Travel Social History Tobacco Use Types Packs/Day [...] Description 04/26/2024 9:00 AM EDT Office Visit [facility] Nephrology [place] [address] [facility] [address] Julio Silva MD [address] [place] [address] documented as of this encounter Visit Diagnoses Not on filedocumented in this encounter Care Teams Sales Representative [employer] Relationship Specialty Start Date End Date Aba Espinoza MD [address] [place] [address] [place] [address] PCP - General Family Medicine 07/27/16 Fili Sanchez MD [address] [facility] [address] [place] [address] Internal Medicine-Endocrinology, Diabetes & Metabolism 04/11/14 documented as of this encounter
--- OUTSIDE RECORDS SUMMARY | 2024-01-18 14:54 | XMS_ITS | Encounter Summary ---
Author Organization [place] [address] Care Team Providers Care Matrix Drier Tender Name Role Phone Fili Sanchez MD Unavailable [phone] Aba Espinoza MD Primary Care Provider [phone] Encounter Details Date Type Department Care Team (Latest Contact Info) Description 03/08/2022 7:00 AM EST - 03/08/2022 11:59 PM EST Hospital Encounter [facility] Cardiac Rehab [place] [address] [address] [facility] [place] [address] Discharge Disposition: Home or Self [...] Blood Sugar Diagnostic (ACCU-CHEK GUIDE TEST STRIPS) [facility] Strip Use to test blood sugars daily. Dx Code:E11.65 100 Strip 3 11/12/2020 escitalopram oxalate (LEXAPRO) 20 mg Oral Tablet Take by mouth daily. flash glucose sensor (FREESTYLE THIEN 2 SENSOR) [facility] Kit 1 Each by [facility].(Non-Drug ; Combo Route) route every 14 days. 6 Kit 1 12/18/2021 FREESTYLE THIEN 2 READER [facility] Use as directed to test BS. DX code: E11.21 1 Each 12/18/2021 magnesium oxide 400 mg magnesium Oral Capsule Take by mouth. Take 2 times daily nitroGLYCERIN (NITROLINGUAL) 400 mcg/spray TL [place], Non-Aerosol Place 1 [place] under the tongue every 5 minutes as [...] glucose sensor (FREESTYLE THIEN 14 DAY SENSOR) [facility] Kit 1 Each by [facility].(Non-Drug ; Combo Route) route every 14 days. [...] Description 04/26/2024 9:00 AM EDT Office Visit [facility] Nephrology [place] [address] [place] [address] Julio Silva MD [address] [place] [address] documented as of this encounter Visit Diagnoses Not on filedocumented in this encounter Care Teams Matrix Drier Tender Relationship Specialty Start Date End Date Aba Espinoza MD [address] [place] [address] PCP - General Family Medicine 07/27/16 Fili Sanchez MD [address] [facility] [address] [place] [address] Internal Medicine-Endocrinology, Diabetes & Metabolism 04/11/14 documented as of this encounter
--- OUTSIDE RECORDS SUMMARY | 2024-01-18 14:54 | XMS_ITS | Encounter Summary ---
Author Organization [facility] [place] [address] Care Team Providers Care Laborer Petroleum Refinery Name Role Phone Fili Sanchez MD Unavailable [phone] Aba Espinoza MD Primary Care Provider [phone] Encounter Details Date Type Department Care Team (Latest Contact Info) Description 02/24/2022 Travel Social History Tobacco Use Types Packs/Day [...] suspected to have Coronavirus/COVID-19? No / Unsure 02/24/2022 2:58 PM EST documented as of this encounter Plan of Treatment Upcoming Encounters Date Type Department Care Team (Late st Contact Info) Description 04/26/2024 9:00 AM EDT Office Visit [facility] Nephrology [place] [address] [place] [address] Julio Silva MD [address] [place] [address] documented as of this encounter Visit Diagnoses Not on filedocumented in this encounter Care Teams Laborer Petroleum Refinery Relationship Specialty Start Date End Date Aba Espinoza MD [address] [place] [address] [place] [address] PCP - General Family Medicine 07/27/16 Fili Sanchez MD [address] [facility] [address] [place] [address] Internal Medicine-Endocrinology, Diabetes & Metabolism 04/11/14 documented as of this encounter
--- OUTSIDE RECORDS SUMMARY | 2024-01-18 14:54 | XMS_ITS | Encounter Summary ---
Author Organization [place] [address] Care Team Providers Care Operations Dispatcher Name Role Phone Fili Sanchez MD Unavailable [phone] Aba Espinoza MD Primary Care Provider [phone] Reason for Visit * Rehabilitation (Routine) - Closed Specialty Diagnoses / Procedures Referred By Kadie casillas Referred To Contact Cardiology Diagnoses S/P CABG (coronary artery bypass graft) Aba Espinoza MD [address] [place] [address] [place] [address] Phone: tel: fax: [facility] Cardiac Rehab [place] [address] [place] [address] Phone: tel: fax: Referral ID Status Reason Start Date Expiration Date Visits Re quested Visits Authorized [id number] Closed 12/14/2021 12/14/2022 36 36 Encounter Details Date Type Department Care Team (Latest Contact Info) Description 02/12/2022 7:00 AM EST - 02/12/2022 11:59 PM EST Hospital Encounter [facility] Cardiac Rehab [place] [address] [place] [address] Discharge Disposition: Home or Self [...] Sugar Diagnostic (ACCU-CHEK GUIDE TEST STRIPS) [facility] Strip Use to test blood sugars daily. Dx Code:E11.65 100 Strip 3 11/12/2020 escitalopram oxalate (LEXAPRO) 20 mg Oral Tablet Take by mouth daily. flash glucose sensor (FREESTYLE THIEN 2 SENSOR) [facility] Kit 1 Each by [facility]Non-Drug ; Combo Route) route every 14 days. 6 Kit 1 12/18/2021 FREE[address]YLE [address] [facility] Use as directed to test BS. DX code: E11.21 1 Each 12/18/2021 magnesium oxide 400 mg magnesium Oral Capsule Take by mouth. Take 2 times daily nitroGLYCERIN (NITROLINGUAL) 400 mcg/spray TL [place], Non-Aerosol Place 1 [place] under the tongue every 5 minutes as [...] sensor (FREESTYLE THIEN 14 DAY SENSOR) [facility] Kit 1 Each by [facility]Non-Drug ; [...] Description 04/26/2024 9:00 AM EDT Office Visit [facility] Nephrology [place] [address] [place] [address] Julio Silva MD [address] [place] [address] documented as of this encounter Visit Diagnoses Not on filedocumented in this encounter Care Teams Operations Dispatcher Relationship Specialty Start Date End Date Aba Espinoza MD [address] [place] [id number] PCP - General Family Medicine 07/27/16 Fili Sanchez MD [address] [facility] [address] [place] [address] Internal Medicine-Endocrinology, Diabetes & Metabolism 04/11/14 documented as of this encounter
--- OUTSIDE RECORDS SUMMARY | 2024-01-18 14:54 | XMS_ITS | Encounter Summary ---
Author Organization [place] [address] Care Team Providers Care Software Analyst Name Role Phone Fili Sanchez MD Unavailable [phone] Aba Espinoza MD Primary Care Provider [phone] Reason for Visit * Reason Onset Date Comments Medication Refill 01/29/2022 Encounter Details Date Type Department Care Team (Late st Contact Info) Description 01/29/[address] [facility] [address] [facility] [address] [place] [address] Fili Sanchez MD [address] [address] Medication Refill Social History Tobacco [...] hr Take 1 Tablet by mouth daily. 90 Tablet 1 01/29/2022 10/28/2022 documented in this encounter Miscellaneous Notes * Telephone Encounter - Kita Rocha - 01/29/2022 10:04 AM EST Who is requesting the refill? Patient Name of medication. glipizide 30 or 90 day supply? 90 Pharmacy and Location [id number] [place] [address] [facility] [phone] How many days of medication left on hand? none Future Appointment: Patient has appointment with Laura on 04/05. Route to [place]. Additional Notes : Patient stated that he misplaced his medicine documented in this encounter Plan of Treatment Upcoming Encounters Date Type Department Care Team (Late st Contact Info) Description 04/26/2024 9:00 AM EDT Office Visit [facility] Nephrology [place] [address] [facility] [address] [facility] [place] [address] Julio Silva MD [address] [facility] [address] [address] documented as of this encounter Visit Diagnoses Not on filedocumented in this encounter Discontinued Medications Medication Sig Discontinue Reason Start Date End Da te glipiZIDE (GLUCOTROL XL) 5 mg Oral Tablet Extended Rel 24 hr Take 1 Tablet by mouth daily. Reorder 11/26/2021 01/29/2022 documented as of this encounter Care Teams Software Analyst Relationship Specialty Start Date End Date Aba Espinoza MD [address] [place] [address] PCP - General Family Medicine 07/27/16 Fili Sanchez MD [address] [place] [address] Internal Medicine-Endocrinology, Diabetes & Metabolism 04/11/14 documented as of this encounter
--- OUTSIDE RECORDS SUMMARY | 2024-01-18 14:54 | XMS_ITS | Encounter Summary ---
Author Organization [place] [address] Care Team Providers Care Communication Clerk Name Role Phone Fili Sanchez MD Unavailable [phone] Aba Espinoza MD Primary Care Provider [phone] Encounter Details Date Type Department Care Team (Latest Contact Info) Description 03/01/2022 7:00 AM EST - 03/01/2022 11:59 PM EST Hospital Encounter [facility] Cardiac Rehab [place] [address] [facility] [place] [address] Discharge Disposition: Home or Self [...] Blood Sugar Diagnostic (ACCU-CHEK GUIDE TEST STRIPS) [facility] Strip Use to test blood sugars daily. Dx Code:E11.65 100 Strip 3 11/12/2020 escitalopram oxalate (LEXAPRO) 20 mg Oral Tablet Take by mouth daily. flash glucose sensor (FREESTYLE THIEN 2 SENSOR) [facility] Kit 1 Each by [facility].(Non-Drug ; Combo Route) route every 14 days. 6 Kit 1 12/18/2021 FREESTYLE THIEN 2 READER [facility] Use as directed to test BS. DX code: E11.21 1 Each 12/18/2021 magnesium oxide 400 mg magnesium Oral Capsule Take by mouth. Take 2 times daily nitroGLYCERIN (NITROLINGUAL) 400 mcg/spray TL [place], Non-Aerosol Place 1 [place] under the tongue every 5 minutes as [...] glucose sensor (FREESTYLE THIEN 14 DAY SENSOR) [facility] Kit 1 Each by [facility].(Non-Drug ; Combo Route) route every 14 days. [...] Description 04/26/2024 9:00 AM EDT Office Visit [facility] Nephrology [place] [address] [place] [address] Julio Silva MD [address] [place] [address] documented as of this encounter Visit Diagnoses Not on filedocumented in this encounter Care Teams Communication Clerk Relationship Specialty Start Date End Date Aba Espinoza MD [address] [place] [address] PCP - General Family Medicine 07/27/16 Fili Sanchez MD [address] [facility] [address] [place] [address] Internal Medicine-Endocrinology, Diabetes & Metabolism 04/11/14 documented as of this encounter
--- OUTSIDE RECORDS SUMMARY | 2024-01-18 14:54 | XMS_ITS | Encounter Summary ---
Author Organization [place] [address] Care Team Providers Care Music Grapher Name Role Phone Fili Sanchez MD Unavailable [phone] Aba Espinoza MD Primary Care Provider [phone] Reason for Visit * Reason Comments Medication Refill Encounter Details Date Type Department Care Team (Late st Contact Info) Description 02/09/2022 Refill [facility] [address] [facility] [address] [place] [address] Fili Sanchez MD [address] [address] Medication Refill Social History [...] AM EST documented as of this encounter Miscellaneous Notes * Telephone Encounter - Dane Hernandez CPhT - 02/10/2022 2:08 PM EST MARKUS CONROY - Medication refill requested too soon. Refill request denied. Refills sent on 11/26/21 with Qty: 15mL and 3 refills. Refills available for transfer from another pharmacy. Patient notified via [facility] (if MyChart active). No DX code associated with medication documented in this encounter Plan of Treatment Upcoming Encounters Date Type Department Care Team (Late st Contact Info) Description 04/26/2024 9:00 AM EDT Office Visit [facility] Nephrology [place] [address] [facility] [address] [place] [address] Julio Silva MD [address] [facility] [address] [place] [address] documented as of this encounter Visit Diagnoses Not on filedocumented in this encounter Care Teams Music Grapher Relationship Specialty Start Date End Date Aba Espinoza MD [address] [place] [address] PCP - General Family Medicine 07/27/16 Fili Sanchez MD [address] [facility] [address] [place] [address] Internal Medicine-Endocrinology, Diabetes & Metabolism 04/11/14 documented as of this encounter
--- OUTSIDE RECORDS SUMMARY | 2024-01-18 14:54 | XMS_ITS | Encounter Summary ---
Author Organization [place] [address] Care Team Providers Care Squirt Machine Operator Name Role Phone Fili Sanchez MD Unavailable [phone] Aba Espinoza MD Primary Care Provider [phone] Encounter Details Date Type Department Care Team (Latest Contact Info) Description 02/24/2022 7:00 AM EST - 02/24/2022 11:59 PM EST Hospital Encounter [facility] Cardiac Rehab [place] [address] [address] [facility] [place] [address] Discharge Disposition: Home or Self [...] Blood Sugar Diagnostic (ACCU-CHEK GUIDE TEST STRIPS) [facility] Strip Use to test blood sugars daily. Dx Code:E11.65 100 Strip 3 11/12/2020 escitalopram oxalate (LEXAPRO) 20 mg Oral Tablet Take by mouth daily. flash glucose sensor (FREESTYLE THIEN 2 SENSOR) [facility] Kit 1 Each by [facility].(Non-Drug ; Combo Route) route every 14 days. 6 Kit 1 12/18/2021 FREESTYLE THIEN 2 READER [facility] Use as directed to test BS. DX code: E11.21 1 Each 12/18/2021 magnesium oxide 400 mg magnesium Oral Capsule Take by mouth. Take 2 times daily nitroGLYCERIN (NITROLINGUAL) 400 mcg/spray TL [place], Non-Aerosol Place 1 [place] under the tongue every 5 minutes as [...] glucose sensor (FREESTYLE THIEN 14 DAY SENSOR) [facility] Kit 1 Each by [facility].(Non-Drug ; Combo Route) route every 14 days. [...] Description 04/26/2024 9:00 AM EDT Office Visit [facility] Nephrology [place] [address] [place] [address] Julio Silva MD [address] [place] [address] documented as of this encounter Visit Diagnoses Not on filedocumented in this encounter Care Teams Squirt Machine Operator Relationship Specialty Start Date End Date Aba Espinoza MD [address] [place] [address] PCP - General Family Medicine 07/27/16 Fili Sanchez MD [address] [facility] [address] [place] [address] Internal Medicine-Endocrinology, Diabetes & Metabolism 04/11/14 documented as of this encounter
--- OUTSIDE RECORDS SUMMARY | 2024-01-18 14:54 | XMS_ITS | Encounter Summary ---
Author Organization [place] [address] Care Team Providers Care Sap Developer Name Role Phone Fili Sanchez MD Unavailable [phone] Aba Espinoza MD Primary Care Provider [phone] Encounter Details Date Type Department Care Team (Latest Contact Info) Description 03/17/2022 4:20 PM EST - 03/17/2022 11:59 PM EST Hospital Encounter [facility] Cardiac Rehab [place] [address] [address] [facility] [place] [address] Discharge Disposition: Home or Self [...] suspected to have Coronavirus/COVID-19? No / Unsure 03/17/2022 4:19 PM EST documented as of this encounter Medications at Time of Discharge allopurinoL (ZYLOPRIM) 100 mg Oral Tablet 100 mg daily. TAKES IN EVENING 06/22/2019 aspirin (ASPIRIN) 81 mg Oral Tablet, Chewable Take 1 Tab by mouth daily. 30 Tab 0 04/11/2014 Blood Sugar Diagnostic (ACCU-CHEK GUIDE TEST STRIPS) [facility] Strip Use to test blood sugars daily. Dx Code:E11.65 100 Strip 3 11/12/2020 escitalopram oxalate (LEXAPRO) 20 mg Oral Tablet Take by mouth daily. flash glucose sensor (FREESTYLE THIEN 2 SENSOR) [facility] Kit 1 Each by [facility].(Non-Drug ; Combo Route) route every 14 days. 6 Kit 1 12/18/2021 FREESTYLE THIEN 2 READER [facility] Use as directed to test BS. DX code: E11.21 1 Each 12/18/2021 magnesium oxide 400 mg magnesium Oral Capsule Take by mouth. Take 2 times daily nitroGLYCERIN (NITROLINGUAL) 400 mcg/spray TL [place], Non-Aerosol Place 1 [place] under the tongue every 5 minutes as [...] glucose sensor (FREESTYLE THIEN 14 DAY SENSOR) [facility] Kit 1 Each by [facility].(Non-Drug ; Combo Route) route every 14 days. [...] Description 04/26/2024 9:00 AM EDT Office Visit [facility] Nephrology [place] [address] [place] [address] Julio Silva MD [address] [place] [address] documented as of this encounter Visit Diagnoses Not on filedocumented in this encounter Care Teams Sap Developer Relationship Specialty Start Date End Date Aab Espinoza MD [address] [place] [address] PCP - General Family Medicine 07/27/16 Fili Sanchez MD [address] [facility] [address] [place] [address] Internal Medicine-Endocrinology, Diabetes & Metabolism 04/11/14 documented as of this encounter
--- OUTSIDE RECORDS SUMMARY | 2024-01-18 14:54 | XMS_ITS | Encounter Summary ---
Author Organization [facility] [place] [address] Care Team Providers Care Clinical Psychology Professor Name Role Phone Fili Sanchez MD Unavailable [phone] Aba Espinoza MD Primary Care Provider [phone] Encounter Details Date Type Department Care Team (Latest Contact Info) Description 01/27/2022 Travel Social History Tobacco Use Types Packs/Day [...] Description 04/26/2024 9:00 AM EDT Office Visit [facility] Nephrology [place] [address] [facility] [address] Julio Silva MD [address] [place] [address] documented as of this encounter Visit Diagnoses Not on filedocumented in this encounter Care Teams Clinical Psychology Professor Relationship Specialty Start Date End Date Aba Espinoza MD [address] [place] [address] PCP - General Family Medicine 07/27/16 Fili Sanchez MD [address] [facility] [address] [place] [address] Internal Medicine-Endocrinology, Diabetes & Metabolism 04/11/14 documented as of this encounter
--- OUTSIDE RECORDS SUMMARY | 2024-01-18 14:54 | XMS_ITS | Encounter Summary ---
Author Organization [facility] [address] Care Team Providers Care Division Officer Weapons Department Name Role Phone Fili Sanchez MD Unavailable [phone] Aba Espinoza MD Primary Care Provider [phone] Encounter Details Date Type Department Care Team (Latest Contact Info) Description 02/26/2022 Travel Social History Tobacco Use Types Packs/Day [...] suspected to have Coronavirus/COVID-19? No / Unsure 02/26/2022 7:38 AM EST documented as of this encounter Plan of Treatment Upcoming Encounters Date Type Department Care Team (Late st Contact Info) Description 04/26/2024 9:00 AM EDT Office Visit [facility] Nephrology [place] [address] [facility] [place] [address] Julio Silva MD [address] [place] [address] documented as of this encounter Visit Diagnoses Not on filedocumented in this encounter Care Teams Division Officer Weapons Department Relationship Specialty Start Date End Date Aba Espinoza MD [address] [place] [address] PCP - General Family Medicine 07/27/16 Fili Sanchez MD [address] [facility] [address] [place] [address] Internal Medicine-Endocrinology, Diabetes & Metabolism 04/11/14 documented as of this encounter
--- OUTSIDE RECORDS SUMMARY | 2024-01-18 14:54 | XMS_ITS | Encounter Summary ---
Author Organization [place] [address] Care Team Providers Care Agile Coach Name Role Phone Fili Sanchez MD Unavailable [phone] Aba Espinoza MD Primary Care Provider [phone] Encounter Details Date Type Department Care Team (Latest Contact Info) Description 03/17/2022 Travel Social History Tobacco Use Types Packs/Day [...] 9:00 AM EDT Office Visit [facility] Nephrology [place] [address] [facility] [place] [address] Julio Silva MD [address] [place] [address] documented as of this encounter Visit Diagnoses Not on filedocumented in this encounter Care Teams Agile Coach Relationship Specialty Start Date End Date Aba Espinoza MD [address] [place] [address] PCP - General Family Medicine 07/27/16 Fili Sanchez MD [address] [facility] [address] [place] [address] Internal Medicine-Endocrinology, Diabetes & Metabolism 04/11/14 documented as of this encounter
--- OUTSIDE RECORDS SUMMARY | 2024-01-18 14:54 | XMS_ITS | Encounter Summary ---
Author Organization [facility] [place] [address] Care Team Providers Care Best Second Jobs Name Role Phone Fili Sanchez MD Unavailable [phone] Aba Espinoza MD Primary Care Provider [phone] Encounter Details Date Type Department Care Team (Latest Contact Info) Description 03/12/2022 Travel Social History Tobacco Use Types Packs/Day [...] Office Visit [facility] Nephrology [place] [address] [facility] [place] [address] Julio Silva MD [address] [place] [address] documented as of this encounter Visit Diagnoses Not on filedocumented in this encounter Care Teams Best Second Jobs Relationship Specialty Start Date End Date Aba Espinoza MD [address] [place] [address] PCP - General Family Medicine 07/27/16 Fili Sanchez MD [address] [facility] [address] [place] [address] Internal Medicine-Endocrinology, Diabetes & Metabolism 04/11/14 documented as of this encounter
--- OUTSIDE RECORDS SUMMARY | 2024-01-18 14:54 | XMS_ITS | Encounter Summary ---
Author Organization [place] [address] Care Team Providers Care Hemodialysis Lab Technician Name Role Phone Fili Sanchez MD Unavailable [phone] Aba Espinoza MD Primary Care Provider [phone] Encounter Details Date Type Department Care Team (Latest Contact Info) Description 02/22/2022 7:00 AM EST - 02/22/2022 11:59 PM EST Hospital Encounter [facility] Cardiac Rehab [place] [address] [address] [facility] [place] [address] Discharge Disposition: Home or Self [...] suspected to have Coronavirus/COVID-19? No / Unsure 02/22/2022 9:36 AM EST documented as of this encounter Medications at Time of Discharge allopurinoL (ZYLOPRIM) 100 mg Oral Tablet 100 mg daily. TAKES IN EVENING 06/22/2019 aspirin (ASPIRIN) 81 mg Oral Tablet, Chewable Take 1 Tab by mouth daily. 30 Tab 0 04/11/2014 Blood Sugar Diagnostic (ACCU-CHEK GUIDE TEST STRIPS) [facility] Strip Use to test blood sugars daily. Dx Code:E11.65 100 Strip 3 11/12/2020 escitalopram oxalate (LEXAPRO) 20 mg Oral Tablet Take by mouth daily. flash glucose sensor (FREESTYLE THIEN 2 SENSOR) [facility] Kit 1 Each by [facility].(Non-Drug ; Combo Route) route every 14 days. 6 Kit 1 12/18/2021 FREESTYLE [address] [facility] Use as directed to test BS. DX code: E11.21 1 Each 12/18/2021 magnesium oxide 400 mg magnesium Oral Capsule Take by mouth. Take 2 times daily nitroGLYCERIN (NITROLINGUAL) 400 mcg/spray TL [place], Non-Aerosol Place 1 [place] under the tongue every 5 minutes as [...] glucose sensor (FREESTYLE THIEN 14 DAY SENSOR) [facility] Kit 1 Each by [facility].(Non-Drug ; Combo Route) route every 14 days. [...] EDT Office Visit [facility] Nephrology [place] [address] [place] [address] Julio Silva MD [address] [place] [address] documented as of this encounter Visit Diagnoses Not on filedocumented in this encounter Care Teams Hemodialysis Lab Technician Relationship Specialty Start Date End Date Aba Espinoza MD [address] [place] [address] [place] [address] PCP - General Family Medicine 07/27/16 Fili Sanchez MD [address] [facility] [address] [place] [address] Internal Medicine-Endocrinology, Diabetes & Metabolism 04/11/14 documented as of this encounter
--- OUTSIDE RECORDS SUMMARY | 2024-01-18 14:54 | XMS_ITS | Encounter Summary ---
Author Organization [place] [address] Care Team Providers Care Kineseologist Name Role Phone Fili Sanchez MD Unavailable [phone] Aba Espinoza MD Primary Care Provider [phone] Encounter Details Date Type Department Care Team (Latest Contact Info) Description 02/01/2022 7:00 AM EST - 02/01/2022 11:59 PM EST Hospital Encounter [facility] Cardiac Rehab [place] [address] [place] [address] Discharge Disposition: Home or Self [...] Each by [facility].(Non-Drug ; Combo Route) route every 14 days. 6 Kit 1 12/18/2021 FREESTYLE THIEN 2 READER [facility] Use as directed to test BS. DX code: E11.21 1 Each 12/18/2021 magnesium oxide 400 mg magnesium Oral Capsule Take by mouth. Take 2 times daily nitroGLYCERIN (NITROLINGUAL) 400 mcg/spray TL [place], Non-Aerosol Place 1 [place] under the tongue every 5 minutes as [...] Each by [facility].(Non-Drug ; Combo Route) route [...] 9:00 AM EDT Office Visit [facility] Nephrology [place] [address] [place] [address] Julio Silva MD [address] [place] [address] documented as of this encounter Visit Diagnoses Not on filedocumented in this encounter Care Teams Kineseologist Relationship Specialty Start Date End Date Aba Espinoza MD [address] [place] [address] PCP - General Family Medicine 07/27/16 Fili Sanchez MD [address] [facility] [address] [place] [address] Internal Medicine-Endocrinology, Diabetes & Metabolism 04/11/14 documented as of this encounter
--- OUTSIDE RECORDS SUMMARY | 2024-01-18 14:54 | XMS_ITS | Encounter Summary ---
Author Organization [employer] [place] [address] Care Team Providers Care Physician Relations Specialist Name Role Phone Fili Sanchez MD Unavailable [phone] Aba Espinoza MD Primary Care Provider [phone] Encounter Details Date Type Department Care Team (Latest Contact Info) Description 02/26/2022 7:00 AM EST - 02/26/2022 11:59 PM EST Hospital Encounter [facility] Cardiac Rehab [place] [address] [address] [facility] [place] [address] Discharge Disposition: Home or Self [...] Blood Sugar Diagnostic (ACCU-CHEK GUIDE TEST STRIPS) [facility] Strip Use to test blood sugars daily. Dx Code:E11.65 100 Strip 3 11/12/2020 escitalopram oxalate (LEXAPRO) 20 mg Oral Tablet Take by mouth daily. flash glucose sensor (FREESTYLE THIEN 2 SENSOR) [facility] Kit 1 Each by [facility].(Non-Drug ; Combo Route) route every 14 days. 6 Kit 1 12/18/2021 FREESTYLE THIEN 2 READER [facility] Use as directed to test BS. DX code: E11.21 1 Each 12/18/2021 magnesium oxide 400 mg magnesium Oral Capsule Take by mouth. Take 2 times daily nitroGLYCERIN (NITROLINGUAL) 400 mcg/spray TL [place], Non-Aerosol Place 1 [place] under the tongue every 5 minutes as [...] glucose sensor (FREESTYLE THIEN 14 DAY SENSOR) [facility] Kit 1 Each by [facility].(Non-Drug ; Combo Route) route every 14 days. [...] 9:00 AM EDT Office Visit [facility] Nephrology [place] [address] [place] [address] Julio Silva MD [address] [place] [address] documented as of this encounter Visit Diagnoses Not on filedocumented in this encounter Care Teams Physician Relations Specialist Relationship Specialty Start Date End Date Aba Espinoza MD [address] [place] [address] PCP - General Family Medicine 07/27/16 Fili Sanchez MD [address] [facility] [address] [place] [address] Internal Medicine-Endocrinology, Diabetes & Metabolism 04/11/14 documented as of this encounter
--- OUTSIDE RECORDS SUMMARY | 2024-01-18 14:54 | XMS_ITS | Encounter Summary ---
Author Organization [place] [address] Care Team Providers Care Turbine Assembler Name Role Phone Fili Sanchez MD Unavailable [phone] Aba Espinoza MD Primary Care Provider [phone] Encounter Details Date Type Department Care Team (Latest Contact Info) Description 03/15/2022 7:00 AM EST - 03/15/2022 11:59 PM EST Hospital Encounter [facility] Cardiac Rehab [place] [address] [address] [facility] [place] [address] Discharge Disposition: Home or Self [...] suspected to have Coronavirus/COVID-19? No / Unsure 03/15/2022 11:41 AM EST documented as of this encounter Medications at Time of Discharge allopurinoL (ZYLOPRIM) 100 mg Oral Tablet 100 mg daily. TAKES IN EVENING 06/22/2019 aspirin (ASPIRIN) 81 mg Oral Tablet, Chewable Take 1 Tab by mouth daily. 30 Tab 0 04/11/2014 Blood Sugar Diagnostic (ACCU-CHEK GUIDE TEST STRIPS) [facility] Strip Use to test blood sugars daily. Dx Code:E11.65 100 Strip 3 11/12/2020 escitalopram oxalate (LEXAPRO) 20 mg Oral Tablet Take by mouth daily. flash glucose sensor (FREESTYLE THIEN 2 SENSOR) [facility] Kit [address] [facility].(Non-Drug ; Combo Route) route every 14 days. 6 Kit 1 12/18/2021 FREESTYLE THIEN 2 READER [facility] Use as directed to test BS. DX code: E11.21 1 Each 12/18/2021 magnesium oxide 400 mg magnesium Oral Capsule Take by mouth. Take 2 times daily nitroGLYCERIN (NITROLINGUAL) 400 mcg/spray TL [place], Non-Aerosol Place 1 [place] under the tongue every 5 minutes as [...] glucose sensor (FREESTYLE THIEN 14 DAY SENSOR) [facility] Kit [address] [facility].(Non-Drug ; Combo Route) route every 14 days. [...] Office Visit [facility] Nephrology [place] [address] [place] [address] Julio Silva MD [address] [place] [address] documented as of this encounter Visit Diagnoses Not on filedocumented in this encounter Care Teams Turbine Assembler Relationship Specialty Start Date End Date Aba Espinoza MD [address] [place] [address] PCP - General Family Medicine 07/27/16 Fili Sanchez MD [address] [facility] [address] [place] [address] Internal Medicine-Endocrinology, Diabetes & Metabolism 04/11/14 documented as of this encounter
--- OUTSIDE RECORDS SUMMARY | 2024-01-18 14:54 | XMS_ITS | Encounter Summary ---
Author Organization [place] [address] Care Team Providers Care Spinning Bath Person Name Role Phone Fili Sanchez MD Unavailable [phone] Aba Espinoza MD Primary Care Provider [phone] Reason for Visit * Rehabilitation (Routine) - Closed Specialty Diagnoses / Procedures Referred By Kadie casillas Referred To Contact Cardiology Diagnoses S/P CABG (coronary artery bypass graft) Aba Espinoza MD [address] [place] [address] [place] [address] Phone: tel: fax: [facility] Cardiac Rehab [place] [address] [place] [address] Phone: tel: fax: Referral ID Status Reason Start Date Expiration Date Visits Re quested Visits Authorized [id number] Closed 12/14/2021 12/14/2022 36 36 Encounter Details Date Type Department Care Team (Latest Contact Info) Description 02/10/2022 7:00 AM EST - 02/10/2022 11:59 PM EST Hospital Encounter [facility] Cardiac Rehab [place] [address] [place] [address] Discharge Disposition: Home or Self [...] Blood Sugar Diagnostic (ACCU-CHEK GUIDE TEST STRIPS) [facility] Strip Use to test blood sugars daily. Dx Code:E11.65 100 Strip 3 11/12/2020 escitalopram oxalate (LEXAPRO) 20 mg Oral Tablet Take by mouth daily. flash glucose sensor (FREESTYLE THIEN 2 SENSOR) [facility] Kit 1 Each by [facility].(Non-Drug ; Combo Route) route every 14 days. 6 Kit 1 12/18/2021 FREESTYLE THIEN 2 READER [facility] Use as directed to test BS. DX code: E11.21 1 Each 12/18/2021 magnesium oxide 400 mg magnesium Oral Capsule Take by mouth. Take 2 times daily nitroGLYCERIN (NITROLINGUAL) 400 mcg/spray TL [place], Non-Aerosol Place 1 [place] under the tongue every 5 minutes as [...] glucose sensor (FREESTYLE THIEN 14 DAY SENSOR) [facility] Kit 1 Each by [facility].(Non-Drug ; Combo Route) route every 14 days. [...] 04/26/2024 9:00 AM EDT Office Visit [facility] Nephrology [place] [address] [facility] [address] [place] [address] Julio Silva MD [address] [facility] [facility] [address] [place] [address] documented as of this encounter Visit Diagnoses Not on filedocumented in this encounter Care Teams Spinning Bath Person Relationship Specialty Start Date End Date Aba Espinoza MD [address] [place] [phone] PCP - General Family Medicine 07/27/16 Fili Sanchez MD [address] [facility] [address] [place] [address] Internal Medicine-Endocrinology, Diabetes & Metabolism 04/11/14 documented as of this encounter
--- OUTSIDE RECORDS SUMMARY | 2024-01-18 14:54 | XMS_ITS | Encounter Summary ---
Author Organization [place] [address] Care Team Providers Care Cns Name Role Phone Fili Sanchez MD Unavailable [phone] Aba Espinoza MD Primary Care Provider [phone] Encounter Details Date Type Department Care Team (Latest Contact Info) Description 01/27/2022 7:00 AM EST - 01/27/2022 11:59 PM EST Hospital Encounter [facility] Cardiac Rehab [place] [address] [address] [facility] [place] [address] Discharge Disposition: Home or Self [...] 1 Each by [facility].(Non-Drug ; Combo Route) route every 14 days. 6 Kit 1 12/18/2021 FREESTYLE THIEN 2 READER [facility] Use as directed to test BS. DX code: E11.21 1 Each 12/18/2021 magnesium oxide 400 mg magnesium Oral Capsule Take by mouth. Take 2 times daily nitroGLYCERIN (NITROLINGUAL) 400 mcg/spray TL [place], Non-Aerosol Place 1 [place] under the tongue every 5 minutes as [...] glucose sensor (FREESTYLE THIEN 14 DAY SENSOR) [facility] Kit 1 Each by [facility].(Non-Drug ; Combo Route) route every [...] 9:00 AM EDT Office Visit [facility] Nephrology [place] [address] [place] [address] Julio Silva MD [address] [place] [address] documented as of this encounter Visit Diagnoses Not on filedocumented in this encounter Care Teams Cns Relationship Specialty Start Date End Date Aba Espinoza MD [address] [place] [address] PCP - General Family Medicine 07/27/16 Fili Sanchez MD [address] [facility] [address] [place] [address] Internal Medicine-Endocrinology, Diabetes & Metabolism 04/11/14 documented as of this encounter
--- OUTSIDE RECORDS SUMMARY | 2024-01-18 14:54 | XMS_ITS | Encounter Summary ---
Author Organization [facility] [place] [address] Care Team Providers Care Night Time Babysitter Name Role Phone Fili Sanchez MD Unavailable [phone] Aba Espinoza MD Primary Care Provider [phone] Encounter Details Date Type Department Care Team (Latest Contact Info) Description 03/15/2022 Travel Social History Tobacco Use Types Packs/Day [...] 9:00 AM EDT Office Visit [facility] Nephrology [place] [address] [facility] [place] [address] Julio Silva MD [address] [place] [address] documented as of this encounter Visit Diagnoses Not on filedocumented in this encounter Care Teams Night Time Babysitter Relationship Specialty Start Date End Date Aba Espinoza MD [address] [place] [address] PCP - General Family Medicine 07/27/16 Fili Sanchez MD [address] [facility] [address] [place] [address] Internal Medicine-Endocrinology, Diabetes & Metabolism 04/11/14 documented as of this encounter
--- OUTSIDE RECORDS SUMMARY | 2024-01-18 14:54 | XMS_ITS | Encounter Summary ---
Author Organization [facility] [place] [address] Care Team Providers Care Commercial Diver Name Role Phone Fili Sanchez MD Unavailable [phone] Aba Espinoza MD Primary Care Provider [phone] Encounter Details Date Type Department Care Team (Latest Contact Info) Description 02/22/2022 Travel Social History Tobacco Use Types Packs/Day [...] Description 04/26/2024 9:00 AM EDT Office Visit [facility] Nephrology [place] [address] [facility] [place] [address] Julio Silva MD [address] [place] [address] documented as of this encounter Visit Diagnoses Not on filedocumented in this encounter Care Teams Commercial Diver Relationship Specialty Start Date End Date Aba Espinoza MD [address] [place] [address] PCP - General Family Medicine 07/27/16 Fili Sanchez MD [address] [facility] [address] [place] [address] Internal Medicine-Endocrinology, Diabetes & Metabolism 04/11/14 documented as of this encounter
--- OUTSIDE RECORDS SUMMARY | 2024-01-18 14:55 | XMS_ITS | Encounter Summary ---
Author Organization [facility] [place] [place] [address] Care Team Providers Care Tax Advisor Name Role Phone Fili Sanchez MD Unavailable [phone] Aba Espinoza MD Primary Care Provider [phone] Encounter Details Date Type Department Care Team (Latest Contact Info) Description 01/13/2022 Travel Social History Tobacco Use Types Packs/Day [...] suspected to have Coronavirus/COVID-19? No / Unsure 01/13/2022 7:07 AM EST documented as of this encounter Plan of Treatment Upcoming Encounters Date Type Department Care Team (Late st Contact Info) Description 04/26/2024 9:00 AM EDT Office Visit [facility] Nephrology [place] [address] [facility] [address] Julio Silva MD [address] [place] [address] documented as of this encounter Visit Diagnoses Not on filedocumented in this encounter Care Teams Tax Advisor Relationship Specialty Start Date End Date Aba Espinoza MD [address] [place] [address] PCP - General Family Medicine 07/27/16 Fili Sanchez MD [address] [facility] [address] [place] [address] Internal Medicine-Endocrinology, Diabetes & Metabolism 04/11/14 documented as of this encounter
--- OUTSIDE RECORDS SUMMARY | 2024-01-18 14:55 | XMS_ITS | Encounter Summary ---
Author Organization [place] [address] Care Team Providers Care Pinmaker Name Role Phone Fili Sanchez MD Unavailable [phone] Aba Espinoza MD Primary Care Provider [phone] Encounter Details Date Type Department Care Team (Latest Contact Info) Description 12/25/2021 7:00 AM EST - 12/25/2021 11:59 PM EST Hospital Encounter [facility] Cardiac Rehab [place] [address] [address] [place] [address] Discharge Disposition: Home or [...] suspected to have Coronavirus/COVID-19? No / Unsure 12/23/2021 6:55 AM EST documented as of this encounter Medications at Time of Discharge allopurinoL (ZYLOPRIM) 100 mg Oral Tablet 100 mg daily. TAKES IN EVENING 06/22/2019 aspirin (ASPIRIN) 81 mg Oral Tablet, Chewable Take 1 Tab by mouth daily. 30 Tab 0 04/11/2014 Blood Sugar Diagnostic (ACCU-CHEK GUIDE TEST STRIPS) [facility] Strip Use to test blood sugars daily. Dx Code:E11.65 100 Strip 3 11/12/2020 escitalopram oxalate (LEXAPRO) 20 mg Oral Tablet Take by mouth daily. flash glucose sensor (FREESTYLE THIEN 2 SENSOR) [facility] Kit 1 Each by [facility].(Non-Drug ; Combo Route) route every 14 days. 6 Kit 1 12/18/2021 FREESTYLE THIEN 2 READER [facility] Use as directed to test BS. DX code: E11.21 1 Each 12/18/2021 magnesium oxide 400 mg magnesium Oral Capsule Take by mouth. Take 2 times daily nitroGLYCERIN (NITROLINGUAL) 400 mcg/spray TL [place], Non-Aerosol Place 1 [address] under the tongue every 5 minutes as [...] 10 mg. Takes one tab MWF 05/25/2021 BD PATITO 2ND GEN PEN NEEDLE 32 gauge x [facility] Needle USE ONCE DAILY TO GIVE INSULIN SHOT 100 Each 2 12/30/2020 01/18/2022 empagliflozin (JARDIANCE) 25 mg Oral Tablet Take 1 Tablet by mouth daily. 30 Tablet 5 11/26/2021 05/21/2022 flash glucose sensor (FREESTYLE HTIEN 14 DAY SENSOR) [facility] Kit 1 Each by [facility].(Non-Drug ; Combo Route) route every 14 days. [...] Description 04/26/2024 9:00 AM EDT Office Visit [facility] Nephrology [place] [address] [place] [address] Julio Silva MD [address] [place] [address] documented as of this encounter Visit Diagnoses Not on filedocumented in this encounter Care Teams Pinmaker Relationship Specialty Start Date End Date Aba Espinoza MD [address] [place] [phone] PCP - General Family Medicine 07/27/16 Fili Sanchez MD [address] [facility] [address] [place] [address] Internal Medicine-Endocrinology, Diabetes & Metabolism 04/11/14 documented as of this encounter
--- OUTSIDE RECORDS SUMMARY | 2024-01-18 14:55 | XMS_ITS | Encounter Summary ---
Author Organization [place] [address] Care Team Providers Care Drive In Teller Name Role Phone Fili Sanchez MD Unavailable [phone] Aba Espinoza MD Primary Care Provider [phone] Reason for Visit * Reason Comments Medication Refill Encounter Details Date Type Department Care Team (Late st Contact Info) Description 01/17/2022 Refill [facility] Physicians [facility] [address] [facility] [address] [place] [address] Fili Sanchez MD [address] [address] Medication Refill Social History Tobacco [...] Refills Last Filled Start Date End Date BD PATITO 2ND GEN PEN NEEDLE 32 gauge x 5/32 Misc Needle USE ONCE DAILY TO GIVE INSULIN SHOT 100 Each 2 01/18/2022 4 documented in this encounter Plan of Treatment Upcoming Encounters Date Type Department Care Team (Late st Contact Info) Description 04/26/2024 9:00 AM EDT Office Visit [facility] Nephrology [place] [address] [facility] [place] [address] Julio Silva MD [address] [facility] [address] [place] [address] documented as of this encounter Visit Diagnoses Not on filedocumented in this encounter Discontinued Medications Medication Sig Discontinue Reason Start Date End Da te BD PATITO 2ND GEN PEN NEEDLE 32 gauge x 5/32 Misc Needle USE ONCE DAILY TO GIVE INSULIN SHOT 12/30/2020 01/18/2022 documented as of this encounter Care Teams Drive In Teller Relationship Specialty Start Date End Date Aba Espinoza MD [address] [place] [address] PCP - General Family Medicine 07/27/16 Fili Sanchez MD [address] [facility] [address] [place] [phone] Internal Medicine-Endocrinology, Diabetes & Metabolism 04/11/14 documented as of this encounter
--- OUTSIDE RECORDS SUMMARY | 2024-01-18 14:55 | XMS_ITS | Encounter Summary ---
Author Organization [facility] [place] [place] [address] Care Team Providers Care Boiler Plant Worker Name Role Phone Fili Sanchez MD Unavailable [phone] Aba Espinoza MD Primary Care Provider [phone] Encounter Details Date Type Department Care Team (Late st Contact Info) Description 12/18/[address] [facility] Physicians [facility] Diabetes [place] [address] [facility] [address] [place] [address] Sonali Don RMA Social History Tobacco [...] suspected to have Coronavirus/COVID-19? No / Unsure 12/18/2021 7:32 AM EDT documented as of this encounter Ordered Prescriptions Prescription Sig Dispense Quantity Refills Last Filled Start Date End Date FREESTYLE THIEN 2 READER Misc Misc Use as directed to test BS. DX code: E11.21 1 Each 12/18/2021 documented in this encounter Plan of Treatment Upcoming Encounters Date Type Department Care Team (Late st Contact Info) Description 04/26/2024 9:00 AM EDT Office Visit [facility] Nephrology [place] [address] [place] [address] Julio Silva MD [address] [place] [address] documented as of this encounter Visit Diagnoses Not on filedocumented in this encounter Discontinued Medications Medication Sig Discontinue Reason Start Date End Da te FREESTYLE THIEN 2 READER Misc Misc Use as directed to test BS Reorder 12/18/2021 12/18/2021 documented as of this encounter Care Teams Boiler Plant Worker Relationship Specialty Start Date End Date Aba Espinoza MD [address] [place] [phone] PCP - General Family Medicine 07/27/16 Fili Sanchez MD [address] [facility] [address] [place] [address] Internal Medicine-Endocrinology, Diabetes & Metabolism 04/11/14 documented as of this encounter
--- OUTSIDE RECORDS SUMMARY | 2024-01-18 14:55 | XMS_ITS | Encounter Summary ---
Author [place] [address] Care Team Providers Care Manager Of Compliance Name Role Phone Fili Sanchez MD Unavailable [phone] Aba Espinoza MD Primary Care Provider [phone] Encounter Details Date Type Department Care Team (Latest Contact Info) Description 12/18/2021 7:00 AM EDT - 12/18/2021 11:59 PM EDT Hospital Encounter [facility] Cardiac Rehab [place] [address] [place] [address] Discharge Disposition: Home or Self [...] AM EDT documented as of this encounter Medications at Time of Discharge allopurinoL (ZYLOPRIM) 100 mg Oral Tablet 100 mg daily. TAKES IN EVENING 06/22/2019 aspirin (ASPIRIN) 81 mg Oral Tablet, Chewable Take 1 Tab by mouth daily. 30 Tab 0 04/11/2014 Blood Sugar Diagnostic (ACCU-CHEK GUIDE TEST STRIPS) [facility] Strip Use to test blood sugars daily. Dx Code:E11.65 100 Strip 3 11/12/2020 escitalopram oxalate (LEXAPRO) 20 mg Oral Tablet Take by mouth daily. flash glucose sensor (FREESTYLE THIEN 2 SENSOR) [facility] Kit 1 Each by [facility].(Non-Drug ; Combo Route) route every 14 days. 6 Kit 1 12/18/2021 FREESTYLE THIEN 2 READER [facility] Use as directed to test BS. DX code: E11.21 1 Each 12/18/2021 magnesium oxide 400 mg magnesium Oral Capsule Take by mouth. Take 2 times daily nitroGLYCERIN (NITROLINGUAL) 400 mcg/spray TL [place], Non-Aerosol Place 1 [place] under the tongue every 5 minutes as [...] 2ND GEN PEN NEEDLE 32 gauge x [facility] Needle USE ONCE DAILY TO GIVE INSULIN SHOT 100 Each 2 12/30/2020 01/18/2022 empagliflozin (JARDIANCE) 25 mg Oral Tablet Take 1 Tablet by mouth daily. 30 Tablet 5 11/26/2021 05/21/2022 flash glucose sensor (FREESTYLE THIEN 14 DAY SENSOR) [facility] Kit 1 Each by [facility].(Non-Drug ; Combo Route) route every 14 days. [...] [facility] Nephrology [place] [address] [place] [address] Julio Silva MD [address] [place] [address] documented as of this encounter Visit Diagnoses Not on filedocumented in this encounter Care Teams Manager Of Compliance Relationship Specialty Start Date End Date Aba Espinoza MD [address] [place] [phone] PCP - General Family Medicine 07/27/16 Fili Sanchez MD [address] [address] Internal Medicine-Endocrinology, Diabetes & Metabolism 04/11/14 documented as of this encounter
--- OUTSIDE RECORDS SUMMARY | 2024-01-18 14:55 | XMS_ITS | Encounter Summary ---
Author Organization [facility] [place] [address] Care Team Providers Care Ammunition Assembly Laborer Name Role Phone Fili Sanchez MD Unavailable [phone] Aba Espinoza MD Primary Care Provider [phone] Encounter Details Date Type Department Care Team (Latest Contact Info) Description 12/21/2021 Travel Social History Tobacco Use Types Packs/Day [...] suspected to have Coronavirus/COVID-19? No / Unsure 12/21/2021 7:32 AM EST documented as of this encounter Plan of Treatment Upcoming Encounters Date Type Department Care Team (Late st Contact Info) Description 04/26/2024 9:00 AM EDT Office Visit [facility] Nephrology [place] [address] [facility] [address] Julio Silva MD [address] [place] [address] documented as of this encounter Visit Diagnoses Not on filedocumented in this encounter Care Teams Ammunition Assembly Laborer Relationship Specialty Start Date End Date Aba Espinoza MD [address] [place] [address] PCP - General Family Medicine 07/27/16 Fili Sanchez MD [address] [facility] [address] [place] [address] Internal Medicine-Endocrinology, Diabetes & Metabolism 04/11/14 documented as of this encounter
--- OUTSIDE RECORDS SUMMARY | 2024-01-18 14:55 | XMS_ITS | Encounter Summary ---
Author Organization [place] [address] Care Team Providers Care Road Packer Operator Name Role Phone Fili Sanchez MD Unavailable [phone] Aba Espinoza MD Primary Care Provider [phone] Encounter Details Date Type Department Care Team (Latest Contact Info) Description 12/30/2021 7:00 AM EST - 12/30/2021 11:59 PM EST Hospital Encounter [facility] Cardiac Rehab [place] [address] [address] [facility] [address] Discharge Disposition: Home or Self [...] Sugar Diagnostic (ACCU-CHEK GUIDE TEST STRIPS) [facility] Strip Use to test blood sugars daily. Dx Code:E11.65 100 Strip 3 11/12/2020 escitalopram oxalate (LEXAPRO) 20 mg Oral Tablet Take by mouth daily. flash glucose sensor (FREESTYLE THIEN 2 SENSOR) [facility] Kit 1 Each by [facility].(Non-Drug ; Combo Route) route every 14 days. 6 Kit 1 12/18/2021 FREESTYLE THIEN 2 READER [facility] Use as directed to test BS. DX code: E11.21 1 Each 12/18/2021 magnesium oxide 400 mg magnesium Oral Capsule Take by mouth. Take 2 times daily nitroGLYCERIN (NITROLINGUAL) 400 mcg/spray TL [place], Non-Aerosol Place 1 [place] under the tongue every 5 minutes as [...] 2ND GEN PEN NEEDLE 32 gauge x [facility] Needle USE ONCE DAILY TO GIVE INSULIN SHOT 100 Each 2 12/30/2020 01/18/2022 empagliflozin (JARDIANCE) 25 mg Oral Tablet Take 1 Tablet by mouth daily. 30 Tablet 5 11/26/2021 05/21/2022 flash glucose sensor (FREESTYLE THIEN 14 DAY SENSOR) [facility] Kit 1 Each by [facility].(Non-Drug ; Combo Route) route [...] 04/26/2024 9:00 AM EDT Office Visit [facility] Nephrology [place] [address] [place] [address] Julio Silva MD [address] [place] [address] documented as of this encounter Visit Diagnoses Not on filedocumented in this encounter Care Teams Road Packer Operator Relationship Specialty Start Date End Date Aba Espinoza MD [address] [place] [phone] PCP - General Family Medicine 07/27/16 Fili Sanchez MD [address] [facility] [address] [place] [address] Internal Medicine-Endocrinology, Diabetes & Metabolism 04/11/14 documented as of this encounter
--- OUTSIDE RECORDS SUMMARY | 2024-01-18 14:55 | XMS_ITS | Encounter Summary ---
Author Organization [place] [address] Care Team Providers Care Web Site Specialist Name Role Phone Fili Sanchez MD Unavailable [phone] Aba Espinoza MD Primary Care Provider [phone] Encounter Details Date Type Department Care Team (Latest Contact Info) Description 12/23/2021 6:56 AM EST - 12/23/2021 11:59 PM EST Hospital Encounter [facility] Cardiac Rehab [place] [address] [place] [address] Discharge Disposition: Home or Self [...] Blood Sugar Diagnostic (ACCU-CHEK GUIDE TEST STRIPS) [facility] Strip Use to test blood sugars daily. Dx Code:E11.65 100 Strip 3 11/12/2020 escitalopram oxalate (LEXAPRO) 20 mg Oral Tablet Take by mouth daily. flash glucose sensor (FREESTYLE THIEN 2 SENSOR) [facility] Kit 1 Each by [facility].(Non-Drug ; Combo Route) route every 14 days. 6 Kit 1 12/18/2021 FREESTYLE THIEN 2 READER [facility] Use as directed to test BS. DX code: E11.21 1 Each 12/18/2021 magnesium oxide 400 mg magnesium Oral Capsule Take by mouth. Take 2 times daily nitroGLYCERIN (NITROLINGUAL) 400 mcg/spray TL [place], Non-Aerosol Place 1 [place] under the tongue every 5 minutes as [...] 2ND GEN PEN NEEDLE 32 gauge x [facility] Needle USE ONCE DAILY TO GIVE INSULIN SHOT 100 Each 2 12/30/2020 01/18/2022 empagliflozin (JARDIANCE) 25 mg Oral Tablet Take 1 Tablet by mouth daily. 30 Tablet 5 11/26/2021 05/21/2022 flash glucose sensor (FREESTYLE THIEN 14 DAY SENSOR) [facility] Kit 1 Each by [facility].(Non-Drug ; Combo Route) [...] Description 04/26/2024 9:00 AM EDT Office Visit [facility] Nephrology [place] [address] [place] [address] Julio Silva MD [address] [place] [address] documented as of this encounter Visit Diagnoses Not on filedocumented in this encounter Care Teams Web Site Specialist Relationship Specialty Start Date End Date Aba Espinoza MD [address] [place] [phone] PCP - General Family Medicine 07/27/16 Fili Sanchez MD [address] [facility] [address] [place] [address] Internal Medicine-Endocrinology, Diabetes & Metabolism 04/11/14 documented as of this encounter
--- OUTSIDE RECORDS SUMMARY | 2024-01-18 14:55 | XMS_ITS | Encounter Summary ---
Author Organization [place] [address] Care Team Providers Care Tester Compressed Gases Name Role Phone Fili Sanchez MD Unavailable [phone] Aba Espinoza MD Primary Care Provider [phone] Encounter Details Date Type Department Care Team (Latest Contact Info) Description 12/21/2021 7:00 AM EST - 12/21/2021 11:59 PM EST Hospital Encounter [facility] Cardiac Rehab [place] [address] [place] [address] Discharge Disposition: Home or Self [...] Diagnostic (ACCU-CHEK GUIDE TEST STRIPS) [facility] Strip Use to test blood sugars daily. Dx Code:E11.65 100 Strip 3 11/12/2020 escitalopram oxalate (LEXAPRO) 20 mg Oral Tablet Take by mouth daily. flash glucose sensor (FREESTYLE THIEN 2 SENSOR) [facility] Kit 1 Each by [facility].(Non-Drug ; Combo Route) route every 14 days. 6 Kit 1 12/18/2021 FREESTYLE THIEN 2 READER [facility] Use as directed to test BS. DX code: E11.21 1 Each 12/18/2021 magnesium oxide 400 mg magnesium Oral Capsule Take by mouth. Take 2 times daily nitroGLYCERIN (NITROLINGUAL) 400 mcg/spray TL [place], Non-Aerosol Place 1 [place] under the tongue every 5 minutes as [...] 2ND GEN PEN NEEDLE 32 gauge x [facility] Needle USE ONCE DAILY TO GIVE INSULIN SHOT 100 Each 2 12/30/2020 01/18/2022 empagliflozin (JARDIANCE) 25 mg Oral Tablet Take 1 Tablet by mouth daily. 30 Tablet 5 11/26/2021 05/21/2022 flash glucose sensor (FREESTYLE THIEN 14 DAY SENSOR) [facility] Kit 1 Each by [facility].(Non-Drug ; Combo Route) route every 14 days. [...] Description 04/26/2024 9:00 AM EDT Office Visit [facility] Nephrology [place] [address] [place] [address] Julio Silva MD [address] [place] [address] documented as of this encounter Visit Diagnoses Not on filedocumented in this encounter Care Teams Tester Compressed Gases Relationship Specialty Start Date End Date Aba Espinoza MD [address] [place] [phone] PCP - General Family Medicine 07/27/16 Fili Sanchez MD [address] [facility] [address] [place] [phone] Internal Medicine-Endocrinology, Diabetes & Metabolism 04/11/14 documented as of this encounter
--- OUTSIDE RECORDS SUMMARY | 2024-01-18 14:55 | XMS_ITS | Encounter Summary ---
Author Organization [place] [address] Care Team Providers Care Fitter Armament Name Role Phone Fili Sanchez MD Unavailable [phone] Aba Espinoza MD Primary Care Provider [phone] Reason for Visit * Reason Onset Date Comments Medication Refill 12/18/2021 Encounter Details Date Type Department Care Team (Late st Contact Info) Description 12/18/[address] [facility] [address] [facility] [address] [place] [address] Fili Sanchez MD [address] [address] Medication Refill Social History Tobacco [...] Refills Last Filled Start Date End Date flash glucose sensor (FREESTYLE RIANNA 2 SENSOR) Misc Kit 1 Each by [facility].(Non-Dr ug; Combo Route) route every 14 days. 6 Kit 1 12/18/2021 documented in this encounter Miscellaneous Notes * Telephone Encounter - Reno Sorensongabe - 12/18/2021 9:49 AM EDT Who is requesting the refill? Pt Name of medication. Rianna 30 or 90 day supply? Pharmacy and Location [id number] [place] [address] [address] [facility] [phone] How many days of medication left on hand? Future Appointment: Additional Notes :Pt asked to please resend to [facility] pharmacy in [place]. The other pharmacy will not fill it. Thank you documented in this encounter Plan of Treatment Upcoming Encounters Date Type Department Care Team (Late st Contact Info) Description 04/26/2024 9:00 AM EDT Office Visit [facility] Nephrology [place] [address] [address] Julio Silva MD [address] [address] documented as of this encounter Visit Diagnoses Not on filedocumented in this encounter Discontinued Medications Medication Sig Discontinue Reason Start Date End Da te flash glucose sensor (FREESTYLE RIANNA 2 SENSOR) [facility] Kit 1 Each by [facility].(Non-Drug; Combo Route) route every 14 days. Reorder 12/16/2021 12/18/2021 documented as of this encounter Care Teams Fitter Armament Relationship Specialty Start Date End Date Aba Espinoza MD [address] [place] [phone] PCP - General Family Medicine 07/27/16 Fili Sanchez MD [address] [place] [phone] Internal Medicine-Endocrinology, Diabetes & Metabolism 04/11/14 documented as of this encounter
--- OUTSIDE RECORDS SUMMARY | 2024-01-18 14:55 | XMS_ITS | Encounter Summary ---
Author Organization [place] [address] Care Team Providers Care Film Vault Supervisor Name Role Phone Fili Sanchez MD Unavailable [phone] Aba Espinoza MD Primary Care Provider [phone] Reason for Visit * Reason Onset Date Comments Paperwork/forms 01/18/2022 Encounter Details Date Type Department Care Team (Late st Contact Info) Description 01/18/[address] [facility] [address] [facility] [address] [place] [address] Fili Sanchez MD [address] [address] Paperwork/forms Social History Tobacco Use [...] suspected to have Coronavirus/COVID-19? No / Unsure 01/18/2022 8:11 AM EST documented as of this encounter Miscellaneous Notes * Telephone Encounter - Mae Heck - 01/18/2022 10:15 AM EST This was all faxed Tuesday01/15/22 Re faxed * Telephone Encounter - Penelope Chaudhary - 01/18/2022 10:09 AM EST [facility] calling to state they need progress notes ( last OV note, a1c level, testingand injection frequency, DX code, med list) sent over for patient's jyoti. Please advise. States patient will be covered even if he is not on insulin. documented in this encounter Plan of Treatment Upcoming Encounters Date Type Department Care Team (Late st Contact Info) Description 04/26/2024 9:00 AM EDT Office Visit [facility] Nephrology [place] [address] [place] [address] Julio Silva MD [address] [place] [address] documented as of this encounter Visit Diagnoses Not on filedocumented in this encounter Care Teams Film Vault Supervisor Relationship Specialty Start Date End Date Aba Espinoza MD [address] [place] [phone] PCP - General Family Medicine 07/27/16 Fili Sanchez MD [address] [facility] [address] [place] [address] Internal Medicine-Endocrinology, Diabetes & Metabolism 04/11/14 documented as of this encounter
--- OUTSIDE RECORDS SUMMARY | 2024-01-18 14:55 | XMS_ITS | Encounter Summary ---
Author Organization [facility] [place] [address] Care Team Providers Care Vest Baster Name Role Phone Fili Sanchez MD Unavailable [phone] Aba Espinoza MD Primary Care Provider [phone] Encounter Details Date Type Department Care Team (Latest Contact Info) Description 01/04/2022 Travel Social History Tobacco Use Types Packs/Day [...] suspected to have Coronavirus/COVID-19? No / Unsure 01/04/2022 8:00 AM EST documented as of this encounter Plan of Treatment Upcoming Encounters Date Type Department Care Team (Late st Contact Info) Description 04/26/2024 9:00 AM EDT Office Visit [facility] Nephrology [place] [address] [facility] [place] [address] Julio Silva MD [address] [place] [address] documented as of this encounter Visit Diagnoses Not on filedocumented in this encounter Care Teams Vest Baster Relationship Specialty Start Date End Date Aba Espinoza MD [address] [place] [address] PCP - General Family Medicine 07/27/16 Fili Sanchez MD [address] [facility] [address] [place] [address] Internal Medicine-Endocrinology, Diabetes & Metabolism 04/11/14 documented as of this encounter
--- OUTSIDE RECORDS SUMMARY | 2024-01-18 14:55 | XMS_ITS | Encounter Summary ---
Author Organization [facility] [place] [address] Care Team Providers Care Contact Officer Name Role Phone Fili Sanchez MD Unavailable [phone] Aba Espinoza MD Primary Care Provider [phone] Encounter Details Date Type Department Care Team (Latest Contact Info) Description 01/01/2022 Travel Social History Tobacco Use Types Packs/Day [...] suspected to have Coronavirus/COVID-19? No / Unsure 01/01/2022 7:55 AM EST documented as of this encounter Plan of Treatment Upcoming Encounters Date Type Department Care Team (Late st Contact Info) Description 04/26/2024 9:00 AM EDT Office Visit [facility] Nephrology [place] [address] [facility] [place] [address] Julio Silva MD [address] [place] [address] documented as of this encounter Visit Diagnoses Not on filedocumented in this encounter Care Teams Contact Officer Relationship Specialty Start Date End Date Aba Espinoza MD [address] [place] [address] PCP - General Family Medicine 07/27/16 Fili Sanchez MD [address] [facility] [address] [place] [address] Internal Medicine-Endocrinology, Diabetes & Metabolism 04/11/14 documented as of this encounter
--- OUTSIDE RECORDS SUMMARY | 2024-01-18 14:55 | XMS_ITS | Encounter Summary ---
Author Organization [place] [address] Care Team Providers Care Insurance Adjustor Name Role Phone Fili Sanchez MD Unavailable [phone] Aba Espinoza MD Primary Care Provider [phone] Encounter Details Date Type Department Care Team (Latest Contact Info) Description 01/25/2022 7:00 AM EST - 01/25/2022 11:59 PM EST Hospital Encounter [facility] Cardiac Rehab [place] [address] [place] [address] Discharge Disposition: Home or Self [...] suspected to have Coronavirus/COVID-19? No / Unsure 01/22/2022 7:09 AM EST documented as of this encounter Medications at Time of Discharge allopurinoL (ZYLOPRIM) 100 mg Oral Tablet 100 mg daily. TAKES IN EVENING 06/22/2019 aspirin (ASPIRIN) 81 mg Oral Tablet, Chewable Take 1 Tab by mouth daily. 30 Tab 0 04/11/2014 Blood Sugar Diagnostic (ACCU-CHEK GUIDE TEST STRIPS) [facility] Strip Use to test blood sugars daily. Dx Code:E11.65 100 Strip 3 11/12/2020 escitalopram oxalate (LEXAPRO) 20 mg Oral Tablet Take by mouth daily. flash glucose sensor (FREESTYLE THIEN 2 SENSOR) [facility] Kit 1 Each by [facility].(Non-Drug ; Combo Route) route every 14 days. 6 Kit 1 12/18/2021 FREESTYLE THIEN 2 [facility]ER [facility] Use as directed to test BS. DX code: E11.21 1 Each 12/18/2021 magnesium oxide 400 mg magnesium Oral Capsule Take by mouth. Take 2 times daily nitroGLYCERIN (NITROLINGUAL) 400 mcg/spray TL [place], Non-Aerosol Place 1 [place] under the tongue every 5 minutes as [...] glucose sensor (FREESTYLE THIEN 14 DAY SENSOR) [facility] Kit 1 Each by [facility].(Non-Drug ; Combo Route) route every 14 days. [...] Description 04/26/2024 9:00 AM EDT Office Visit [facility] Nephrology [place] [address] [place] [address] Julio Silva MD [address] [place] [address] documented as of this encounter Visit Diagnoses Not on filedocumented in this encounter Care Teams Insurance Adjustor Relationship Specialty Start Date End Date Aba Espinoza MD [address] [place] [phone] PCP - General Family Medicine 07/27/16 Fili Sanchez MD [address] [facility] [address] [place] [address] Internal Medicine-Endocrinology, Diabetes & Metabolism 04/11/14 documented as of this encounter
--- OUTSIDE RECORDS SUMMARY | 2024-01-18 14:55 | XMS_ITS | Encounter Summary ---
Author Organization [facility] [address] Care Team Providers Care Wastewater Treatment Plant Supervisor Name Role Phone Fili Sanchez MD Unavailable [phone] Aba Espinoza MD Primary Care Provider [phone] Encounter Details Date Type Department Care Team (Latest Contact Info) Description 01/11/2022 Travel Social History Tobacco Use Types Packs/Day [...] suspected to have Coronavirus/COVID-19? No / Unsure 01/11/2022 7:42 AM EST documented as of this encounter Plan of Treatment Upcoming Encounters Date Type Department Care Team (Late st Contact Info) Description 04/26/2024 9:00 AM EDT Office Visit [facility] Nephrology [place] [address] [facility] [place] [address] Julio Silva MD [address] [place] [address] documented as of this encounter Visit Diagnoses Not on filedocumented in this encounter Care Teams Wastewater Treatment Plant Supervisor Relationship Specialty Start Date End Date Aba Espinoza MD [address] [place] [address] PCP - General Family Medicine 07/27/16 Fili Sanchez MD [address] [facility] [address] [place] [address] Internal Medicine-Endocrinology, Diabetes & Metabolism 04/11/14 documented as of this encounter
--- OUTSIDE RECORDS SUMMARY | 2024-01-18 14:55 | XMS_ITS | Encounter Summary ---
Author Organization [place] [address] Care Team Providers Care Qa Auditor Name Role Phone Fili Sanchez MD Unavailable [phone] Aba Espinoza MD Primary Care Provider [phone] Reason for Visit * Reason Onset Date Comments Medication Refill 12/18/2021 Encounter Details Date Type Department Care Team (Late st Contact Info) Description 12/18/2021 [facility] [address] [address] Fili Sanchez MD [address] [address] Medication Refill Social History Tobacco [...] Date End Date FREESTYLE THIEN 2 READER [facility] Use as directed to test BS 1 Each 12/18/2021 2 documented in this encounter Plan of Treatment Upcoming Encounters Date Type Department Care Team (Late st Contact Info) Description 04/26/2024 9:00 AM EDT Office Visit [facility] Nephrology [place] [address] [place] [address] Julio Silva MD [address] [facility] [address] [place] [address] documented as of this encounter Visit Diagnoses Not on filedocumented in this encounter Care Teams Qa Auditor Relationship Specialty Start Date End Date Aba Espinoza MD [address] [place] [address] PCP - General Family Medicine 07/27/16 Fili Sanchez MD [address] [facility] [address] [place] [address] Internal Medicine-Endocrinology, Diabetes & Metabolism 04/11/14 documented as of this encounter
--- OUTSIDE RECORDS SUMMARY | 2024-01-18 14:55 | XMS_ITS | Encounter Summary ---
Author Organization [facility] [place] [address] Care Team Providers Care Human Resource Internship Name Role Phone Fili Sanchez MD Unavailable [phone] Aba Espinoza MD Primary Care Provider [phone] Encounter Details Date Type Department Care Team (Latest Contact Info) Description 01/20/2022 Travel Social History Tobacco Use Types Packs/Day [...] suspected to have Coronavirus/COVID-19? No / Unsure 01/20/2022 7:49 AM EST documented as of this encounter Plan of Treatment Upcoming Encounters Date Type Department Care Team (Late st Contact Info) Description 04/26/2024 9:00 AM EDT Office Visit [facility] Nephrology [place] [address] [facility] [place] [address] Julio Silva MD [address] [place] [address] documented as of this encounter Visit Diagnoses Not on filedocumented in this encounter Care Teams Human Resource Internship Relationship Specialty Start Date End Date Aba Espinoza MD [address] [place] [address] PCP - General Family Medicine 07/27/16 Fili Sanchez MD [address] [facility] [address] [place] [address] Internal Medicine-Endocrinology, Diabetes & Metabolism 04/11/14 documented as of this encounter
--- OUTSIDE RECORDS SUMMARY | 2024-01-18 14:55 | XMS_ITS | Encounter Summary ---
Author Organization [place] [address] Care Team Providers Care Iso Coordinator Name Role Phone Fili Sanchez MD Unavailable [phone] Aba Espinoza MD Primary Care Provider [phone] Encounter Details Date Type Department Care Team (Latest Contact Info) Description 01/22/2022 7:00 AM EST - 01/22/2022 11:59 PM EST Hospital Encounter [facility] Cardiac Rehab [place] [address] [address] [facility] [place] [place] [address] Discharge Disposition: Home or Self [...] Blood Sugar Diagnostic (ACCU-CHEK GUIDE TEST STRIPS) [facility] Strip Use to test blood sugars daily. Dx Code:E11.65 100 Strip 3 11/12/2020 escitalopram oxalate (LEXAPRO) 20 mg Oral Tablet Take by mouth daily. flash glucose sensor (FREESTYLE THIEN 2 SENSOR) [facility] Kit 1 Each by [facility].(Non-Drug ; Combo Route) route every 14 days. 6 Kit 1 12/18/2021 FREESTYLE THIEN 2 READER [facility] Use as directed to test BS. DX code: E11.21 1 Each 12/18/2021 magnesium oxide 400 mg magnesium Oral Capsule Take by mouth. Take 2 times daily nitroGLYCERIN (NITROLINGUAL) 400 mcg/spray TL [place], Non-Aerosol Place 1 [place] under the tongue every 5 minutes as [...] glucose sensor (FREESTYLE THIEN 14 DAY SENSOR) [facility] Kit 1 Each by [facility].(Non-Drug ; Combo Route) route every 14 days. [...] Description 04/26/2024 9:00 AM EDT Office Visit [facility] Nephrology [place] [address] [place] [address] Julio Silva MD [address] [place] [address] documented as of this encounter Visit Diagnoses Not on filedocumented in this encounter Care Teams Iso Coordinator Relationship Specialty Start Date End Date Aba Espinoza MD [address] [place] [address] PCP - General Family Medicine 07/27/16 Fili Sanchez MD [address] [facility] [address] [place] [address] Internal Medicine-Endocrinology, Diabetes & Metabolism 04/11/14 documented as of this encounter
--- OUTSIDE RECORDS SUMMARY | 2024-01-18 14:55 | XMS_ITS | Encounter Summary ---
Author Organization [place] [address] Care Team Providers Care Environmental Emergencies Planner Name Role Phone Fili Sanchez MD Unavailable [phone] Aba Espinoza MD Primary Care Provider [phone] Encounter Details Date Type Department Care Team (Latest Contact Info) Description 01/18/2022 7:00 AM EST - 01/18/2022 11:59 PM EST Hospital Encounter [facility] Cardiac Rehab [place] [address] [address] [facility] [place] [address] Discharge Disposition: Home or Self [...] Blood Sugar Diagnostic (ACCU-CHEK GUIDE TEST STRIPS) [facility] Strip Use to test blood sugars daily. Dx Code:E11.65 100 Strip 3 11/12/2020 escitalopram oxalate (LEXAPRO) 20 mg Oral Tablet Take by mouth daily. flash glucose sensor (FREESTYLE THIEN 2 SENSOR) [facility] Kit 1 Each by [facility].(Non-Drug ; Combo Route) route every 14 days. 6 Kit 1 12/18/2021 FREESTYLE THIEN 2 [address] [facility] Use as directed to test BS. DX code: E11.21 1 Each 12/18/2021 magnesium oxide 400 mg magnesium Oral Capsule Take by mouth. Take 2 times daily nitroGLYCERIN (NITROLINGUAL) 400 mcg/spray TL [place], Non-Aerosol Place 1 [place] under the tongue every 5 minutes as [...] glucose sensor (FREESTYLE THIEN 14 DAY SENSOR) [facility] Kit 1 Each by [facility].(Non-Drug ; Combo Route) route every 14 days. [...] Description 04/26/2024 9:00 AM EDT Office Visit [facility] Nephrology [place] [address] [place] [address] Julio Silva MD [address] [place] [address] documented as of this encounter Visit Diagnoses Not on filedocumented in this encounter Care Teams Environmental Emergencies Planner Relationship Specialty Start Date End Date Aba Espinoza MD [address] [place] [address] PCP - General Family Medicine 07/27/16 Fili Sanchez MD [address] [facility] [address] [place] [address] Internal Medicine-Endocrinology, Diabetes & Metabolism 04/11/14 documented as of this encounter
--- OUTSIDE RECORDS SUMMARY | 2024-01-18 14:55 | XMS_ITS | Encounter Summary ---
Author Organization [facility] [place] [address] Care Team Providers Care Wood Strip Block Floor Installer Name Role Phone Fili Sanchez MD Unavailable [phone] Aba Espinoza MD Primary Care Provider [phone] Encounter Details Date Type Department Care Team (Latest Contact Info) Description 01/22/2022 Travel Social History Tobacco Use Types Packs/Day [...] 9:00 AM EDT Office Visit [facility] Nephrology [place] [address] [facility] [place] [address] Julio Silva MD [address] [place] [address] documented as of this encounter Visit Diagnoses Not on filedocumented in this encounter Care Teams Wood Strip Block Floor Installer Relationship Specialty Start Date End Date Aba Espinoza MD [address] [place] [address] PCP - General Family Medicine 07/27/16 Fili Sanchez MD [address] [facility] [address] [place] [address] Internal Medicine-Endocrinology, Diabetes & Metabolism 04/11/14 documented as of this encounter
--- OUTSIDE RECORDS SUMMARY | 2024-01-18 14:55 | XMS_ITS | Encounter Summary ---
Author Organization [facility] [place] [address] Care Team Providers Care Signal Integrity Engineer Name Role Phone Fili Sanchez MD Unavailable [phone] Aba Espinoza MD Primary Care Provider [phone] Encounter Details Date Type Department Care Team (Latest Contact Info) Description 12/23/2021 Travel Social History Tobacco Use Types Packs/Day [...] [facility] Nephrology [place] [address] [facility] [place] [address] Julio Silva MD [address] [place] [address] documented as of this encounter Visit Diagnoses Not on filedocumented in this encounter Care Teams Signal Integrity Engineer Relationship Specialty Start Date End Date Aba Espinoza MD [address] [place] [address] PCP - General Family Medicine 07/27/16 Fili Sanchez MD [address] [facility] [address] [place] [address] Internal Medicine-Endocrinology, Diabetes & Metabolism 04/11/14 documented as of this encounter
--- OUTSIDE RECORDS SUMMARY | 2024-01-18 14:55 | XMS_ITS | Encounter Summary ---
Author Organization [facility] [place] [address] Care Team Providers Care Painter And Body Mechanic Apprentice Name Role Phone Fili Sanchez MD Unavailable [phone] Aba Espinoza MD Primary Care Provider [phone] Encounter Details Date Type Department Care Team (Latest Contact Info) Description 12/18/2021 Travel Social History Tobacco Use Types Packs/Day [...] AM EDT documented as of this encounter Plan of Treatment Upcoming Encounters Date Type Department Care Team (Late st Contact Info) Description 04/26/2024 9:00 AM EDT Office Visit [facility] Nephrology [place] [address] [place] [address] Julio Silva MD [address] [place] [place], [place] [address] documented as of this encounter Visit Diagnoses Not on filedocumented in this encounter Care Teams Painter And Body Mechanic Apprentice Relationship Specialty Start Date End Date Aba Espinoza MD [address] [place] [address] PCP - General Family Medicine 07/27/16 Fili Sanchez MD [address] [facility] [address] [place] [address] Internal Medicine-Endocrinology, Diabetes & Metabolism 04/11/14 documented as of this encounter
--- OUTSIDE RECORDS SUMMARY | 2024-01-18 14:55 | XMS_ITS | Encounter Summary ---
Author Organization [place] [address] Care Team Providers Care Lead Auditor Name Role Phone Fili Sanchez MD Unavailable [phone] Aba Espinoza MD Primary Care Provider [phone] Encounter Details Date Type Department Care Team (Latest Contact Info) Description 01/01/2022 7:00 AM EST - 01/01/2022 11:59 PM EST Hospital Encounter [facility] Cardiac Rehab [place] [address] [address] [facility] [place] [address] Discharge Disposition: Home or Self [...] times daily nitroGLYCERIN (NITROLINGUAL) 400 mcg/spray TL [place], Non-Aerosol Place 1 [place] under the tongue every 5 minutes as [...] 2ND GEN PEN NEEDLE 32 gauge x [facility] Needle USE ONCE [...] 9:00 AM EDT Office Visit [facility] Nephrology [place] [address] [place] [address] Julio Silva MD [address] [place] [address] documented as of this encounter Visit Diagnoses Not on filedocumented in this encounter Care Teams Lead Auditor Relationship Specialty Start Date End Date Aba Espinoza MD [address] [place] [address] PCP - General Family Medicine 07/27/16 Fiil Sanchez MD [address] [facility] [address] [place] [address] Internal Medicine-Endocrinology, Diabetes & Metabolism 04/11/14 documented as of this encounter
--- OUTSIDE RECORDS SUMMARY | 2024-01-18 14:55 | XMS_ITS | Encounter Summary ---
Author Organization [place] [address] Care Team Providers Care Tire Vulcanizer Name Role Phone Fili Sanchez MD Unavailable [phone] Aba Espinoza MD Primary Care Provider [phone] Encounter Details Date Type Department Care Team (Latest Contact Info) Description 01/11/2022 7:00 AM EST - 01/11/2022 11:59 PM EST Hospital Encounter [facility] Cardiac Rehab [place] [address] [place] [address] Discharge Disposition: Home or Self [...] Kit 1 12/18/2021 FREESTYLE THIEN 2 READER [facility] Use as directed to test BS. DX code: E11.21 1 Each 12/18/2021 magnesium oxide 400 mg magnesium Oral Capsule Take by mouth. Take 2 times daily nitroGLYCERIN (NITROLINGUAL) 400 mcg/spray TL [place], Non-Aerosol Place 1 [place] under the tongue every 5 minutes as [...] [facility] Nephrology [place] [address] [place] [address] Julio Silva MD [address] [place] [address] documented as of this encounter Visit Diagnoses Not on filedocumented in this encounter Care Teams Tire Vulcanizer Relationship Specialty Start Date End Date Aba Espinoza MD [address] [place] [phone] PCP - General Family Medicine 07/27/16 Fili Sanchez MD [address] [facility] [address] [place] [address] Internal Medicine-Endocrinology, Diabetes & Metabolism 04/11/14 documented as of this encounter
--- OUTSIDE RECORDS SUMMARY | 2024-01-18 14:55 | XMS_ITS | Encounter Summary ---
Author Organization [place] [address] Care Team Providers Care Technical Specialist Cytogenetics Name Role Phone Fili Sanchez MD Unavailable [phone] Aba Espinoza MD Primary Care Provider [phone] Encounter Details Date Type Department Care Team (Latest Contact Info) Description 01/13/2022 7:00 AM EST - 01/13/2022 11:59 PM EST Hospital Encounter [facility] Cardiac Rehab [place] [address] [address] [facility] [place] [address] Discharge Disposition: Home or Self [...] Kit 1 12/18/2021 FREESTYLE THIEN 2 READER [facility] Use as directed to test BS. DX code: E11.21 1 Each 12/18/2021 magnesium oxide 400 mg magnesium Oral Capsule Take by mouth. Take 2 times daily nitroGLYCERIN (NITROLINGUAL) 400 mcg/spray TL [place], Non-Aerosol Place 1 [place] under the tongue every 5 minutes as [...] 2ND GEN PEN NEEDLE [address] [facility] Needle USE ONCE DAILY TO GIVE INSULIN [...] Description 04/26/2024 9:00 AM EDT Office Visit [facility] Nephrology [place] [address] [place] [address] Julio Silva MD [address] [place] [address] documented as of this encounter Visit Diagnoses Not on filedocumented in this encounter Care Teams Technical Specialist Cytogenetics Relationship Specialty Start Date End Date Aba Espinoza MD [address] [place] [phone] PCP - General Family Medicine 07/27/16 Fili Sanchez MD [address] [facility] [address] [place] [address] Internal Medicine-Endocrinology, Diabetes & Metabolism 04/11/14 documented as of this encounter
--- OUTSIDE RECORDS SUMMARY | 2024-01-18 14:55 | XMS_ITS | Encounter Summary ---
Author Organization [facility] [place] [address] Care Team Providers Care Collar Fuser Name Role Phone Fili Sanchez MD Unavailable [phone] Aba Espinoza MD Primary Care Provider [phone] Encounter Details Date Type Department Care Team (Latest Contact Info) Description 01/18/2022 Travel Social History Tobacco Use Types Packs/Day [...] AM EDT Office Visit [facility] Nephrology [place] [address] [address] Julio Silva MD [address] [place] [address] documented as of this encounter Visit Diagnoses Not on filedocumented in this encounter Care Teams Collar Fuser Relationship Specialty Start Date End Date Aba Espinoza MD [address] [place] [address] PCP - General Family Medicine 07/27/16 Fili Sanchez MD [address] [facility] [address] [place] [address] Internal Medicine-Endocrinology, Diabetes & Metabolism 04/11/14 documented as of this encounter
--- OUTSIDE RECORDS SUMMARY | 2024-01-18 14:55 | XMS_ITS | Encounter Summary ---
Author Organization [place] [address] Care Team Providers Care Portfolio Assistant Name Role Phone Fili Sanchez MD Unavailable [phone] Aba Espinoza MD Primary Care Provider [phone] Encounter Details Date Type Department Care Team (Latest Contact Info) Description 01/06/2022 7:00 AM EST - 01/06/2022 11:59 PM EST Hospital Encounter [facility] Cardiac Rehab [place] [address] [place] [address] Discharge Disposition: Home or Self [...] 1 12/18/2021 FREESTYLE THIEN 2 READER [facility] Use as directed to test BS. DX code: E11.21 1 Each 12/18/2021 magnesium oxide 400 mg magnesium Oral Capsule Take by mouth. Take 2 times daily nitroGLYCERIN (NITROLINGUAL) 400 mcg/spray TL [place], Non-Aerosol Place 1 [place] under the tongue every 5 minutes as [...] 2ND GEN PEN NEEDLE 32 gauge x [facility] Needle USE ONCE DAILY TO GIVE INSULIN [...] Description 04/26/2024 9:00 AM EDT Office Visit [facility] Nephrology [place] [address] [place] [address] Julio Silva MD [address] [place] [address] documented as of this encounter Visit Diagnoses Not on filedocumented in this encounter Care Teams Portfolio Assistant Relationship Specialty Start Date End Date Aba Espinoza MD [address] [place] [phone] PCP - General Family Medicine 07/27/16 Fili Sanchez MD [address] [facility] [address] [place] [address] Internal Medicine-Endocrinology, Diabetes & Metabolism 04/11/14 documented as of this encounter
--- OUTSIDE RECORDS SUMMARY | 2024-01-18 14:55 | XMS_ITS | Encounter Summary ---
Author Organization [place] [address] Care Team Providers Care Coal Tram Driver Name Role Phone Fili Sanchez MD Unavailable [phone] Aba Espinoza MD Primary Care Provider [phone] Encounter Details Date Type Department Care Team (Latest Contact Info) Description 01/04/2022 7:00 AM EST - 01/04/2022 11:59 PM EST Hospital Encounter [facility] Cardiac Rehab [place] [address] [place] [address] Discharge Disposition: Home or Self [...] Blood Sugar Diagnostic (ACCU-CHEK GUIDE TEST STRIPS) [facility] Strip Use to test blood sugars daily. Dx Code:E11.65 100 Strip 3 11/12/2020 escitalopram oxalate (LEXAPRO) 20 mg Oral Tablet Take by mouth daily. flash glucose sensor (FREESTYLE THIEN 2 SENSOR) [facility] Kit 1 Each by [facility].(Non-Drug ; Combo Route) route every 14 days. 6 Kit 1 12/18/2021 FREESTYLE THIEN 2 READER [facility] Use as directed to test BS. DX code: E11.21 1 Each 12/18/2021 magnesium oxide 400 mg magnesium Oral Capsule Take by mouth. Take 2 times daily nitroGLYCERIN (NITROLINGUAL) 400 mcg/spray TL [place], Non-Aerosol Place 1 [place] under the tongue every 5 minutes as [...] 2ND GEN PEN NEEDLE 32 gauge x [facility] Needle USE ONCE DAILY TO GIVE INSULIN SHOT 100 Each 2 12/30/2020 01/18/2022 empagliflozin (JARDIANCE) 25 mg Oral Tablet Take 1 Tablet by mouth daily. 30 Tablet 5 11/26/2021 05/21/2022 flash glucose sensor (FREESTYLE THIEN 14 DAY SENSOR) [facility] Kit 1 Each by [facility].(Non-Drug ; Combo Route) [...] 04/26/2024 9:00 AM EDT Office Visit [facility] Nephrology [place] [address] [place] [address] Julio Silva MD [address] [place] [address] documented as of this encounter Visit Diagnoses Not on filedocumented in this encounter Care Teams Coal Tram Driver Relationship Specialty Start Date End Date Aba Espinoza MD [address] [place] [phone] PCP - General Family Medicine 07/27/16 Fili Sanchez MD [address] [facility] [address] [place] [address] Internal Medicine-Endocrinology, Diabetes & Metabolism 04/11/14 documented as of this encounter
--- OUTSIDE RECORDS SUMMARY | 2024-01-18 14:55 | XMS_ITS | Encounter Summary ---
Author Organization [place] [address] Care Team Providers Care Tonger Name Role Phone Fili Sanchez MD Unavailable [phone] Aba Espinoza MD Primary Care Provider [phone] Encounter Details Date Type Department Care Team (Latest Contact Info) Description 01/20/2022 7:00 AM EST - 01/20/2022 11:59 PM EST Hospital Encounter [facility] Cardiac Rehab [place] [address] [address] [facility] [place] [address] Discharge Disposition: Home or Self [...] Kit 1 12/18/2021 FREESTYLE THIEN 2 READER [facility] Use as directed to test BS. DX code: E11.21 1 Each 12/18/2021 magnesium oxide 400 mg magnesium Oral Capsule Take by mouth. Take 2 times daily nitroGLYCERIN (NITROLINGUAL) 400 mcg/spray TL [place], Non-Aerosol Place 1 [place] under the tongue every 5 minutes as [...] EDT Office Visit [facility] Nephrology [place] [address] [place] [address] Julio Silva MD [address] [place] [address] documented as of this encounter Visit Diagnoses Not on filedocumented in this encounter Care Teams Tonger Relationship Specialty Start Date End Date Aba Espinoza MD [address] [place] [address] [place] [address] PCP - General Family Medicine 07/27/16 Fili Sanchez MD [address] [facility] [address] [place] [address] Internal Medicine-Endocrinology, Diabetes & Metabolism 04/11/14 documented as of this encounter
--- OUTSIDE RECORDS SUMMARY | 2024-01-18 14:55 | XMS_ITS | Encounter Summary ---
Author Organization [place] [address] Care Team Providers Care Electrician Shop Name Role Phone Fili Sanchez MD Unavailable [phone] Aba Espinoza MD Primary Care Provider [phone] Encounter Details Date Type Department Care Team (Latest Contact Info) Description 01/15/2022 7:00 AM EST - 01/15/2022 11:59 PM EST Hospital Encounter [facility] Cardiac Rehab [place] [address] [address] [facility] [place] [address] Discharge Disposition: Home or Self [...] Blood Sugar Diagnostic (ACCU-CHEK GUIDE TEST STRIPS) [facility] Strip Use to test blood sugars daily. Dx Code:E11.65 100 Strip 3 11/12/2020 escitalopram oxalate (LEXAPRO) 20 mg Oral Tablet Take by mouth daily. flash glucose sensor (FREESTYLE THIEN 2 SENSOR) [facility] Kit 1 Each by [facility].(Non-Drug ; Combo Route) route every 14 days. 6 Kit 1 12/18/2021 FREESTYLE THIEN 2 READER [facility] Use as directed to test BS. DX code: E11.21 1 Each 12/18/2021 magnesium oxide 400 mg magnesium Oral Capsule Take by mouth. Take 2 times daily nitroGLYCERIN (NITROLINGUAL) 400 mcg/spray TL [place], Non-Aerosol Place 1 [place] under the tongue every 5 minutes as [...] 2ND GEN PEN NEEDLE 32 gauge x [facility] Needle USE ONCE DAILY TO GIVE INSULIN SHOT 100 Each 2 12/30/2020 01/18/2022 empagliflozin (JARDIANCE) 25 mg Oral Tablet Take 1 Tablet by mouth daily. 30 Tablet 5 11/26/2021 05/21/2022 flash glucose sensor (FREESTYLE THIEN 14 DAY SENSOR) [facility] Kit 1 Each by [facility].(Non-Drug ; Combo Route) route every [...] Visit [facility] Nephrology [place] [address] [place] [address] Julio Silva MD [address] [place] [address] documented as of this encounter Visit Diagnoses Not on filedocumented in this encounter Care Teams Electrician Shop Relationship Specialty Start Date End Date Aba Espinoza MD [address] [place] [phone] PCP - General Family Medicine 07/27/16 Fili Sanchez MD [address] [facility] [address] [place] [address] Internal Medicine-Endocrinology, Diabetes & Metabolism 04/11/14 documented as of this encounter
--- OUTSIDE RECORDS SUMMARY | 2024-01-18 14:55 | XMS_ITS | Encounter Summary ---
Author Organization [place] [address] Care Team Providers Care Reinforcing Metal Worker Name Role Phone Fili Sanchez MD Unavailable [phone] Aba Espinoza MD Primary Care Provider [phone] Encounter Details Date Type Department Care Team (Latest Contact Info) Description 12/28/2021 7:00 AM EST - 12/28/2021 11:59 PM EST Hospital Encounter [facility] Cardiac Rehab [place] [address] [address] [facility] [place] [address] Discharge Disposition: Home or Self [...] Blood Sugar Diagnostic (ACCU-CHEK GUIDE TEST STRIPS) [facility] Strip Use to test blood sugars daily. Dx Code:E11.65 100 Strip 3 11/12/2020 escitalopram oxalate (LEXAPRO) 20 mg Oral Tablet Take by mouth daily. flash glucose sensor (FREESTYLE THIEN 2 SENSOR) [facility] Kit 1 Each by [facility].(Non-Drug ; Combo Route) route every 14 days. 6 Kit 1 12/18/2021 FREESTYLE THIEN 2 READER [facility] Use as directed to test BS. DX code: E11.21 1 Each 12/18/2021 magnesium oxide 400 mg magnesium Oral Capsule Take by mouth. Take 2 times daily nitroGLYCERIN (NITROLINGUAL) 400 mcg/spray TL [place], Non-Aerosol Place 1 [place] under the tongue every 5 minutes as [...] 2ND GEN PEN NEEDLE 32 gauge x [facility] Needle USE ONCE DAILY TO GIVE INSULIN SHOT 100 Each 2 12/30/2020 01/18/2022 empagliflozin (JARDIANCE) 25 mg Oral Tablet Take 1 Tablet by mouth daily. 30 Tablet 5 11/26/2021 05/21/2022 flash glucose sensor (FREESTYLE THIEN 14 DAY SENSOR) [facility] Kit 1 Each by [facility].(Non-Drug ; Combo Route) route every 14 days. [...] 04/26/2024 9:00 AM EDT Office Visit [facility] Nephrology [place] [address] [place] [address] Julio Silva MD [address] [place] [address] documented as of this encounter Visit Diagnoses Not on filedocumented in this encounter Care Teams Reinforcing Metal Worker Relationship Specialty Start Date End Date Aba Espinoza MD [address] [place] [phone] PCP - General Family Medicine 07/27/16 Fili Sanchez MD [address] [facility] [address] [place] [address] Internal Medicine-Endocrinology, Diabetes & Metabolism 04/11/14 documented as of this encounter
--- OUTSIDE RECORDS SUMMARY | 2024-01-18 14:56 | XMS_ITS | Encounter Summary ---
Author Organization [place] [address] Care Team Providers Care Infusion Nurse Name Role Phone Fili Sanchez MD Unavailable [phone] Aba Espinoza MD Primary Care Provider [phone] Reason for Visit * Reason Onset Date Comments Medication Refill 08/07/2021 Encounter Details Date Type Department Care Team (Late st Contact Info) Description 08/07[facility]20[facility] [address] [address] Fili Sanchez MD [address] [address] Medication Refill Social History Tobacco [...] Description 04/26/2024 9:00 AM EDT Office Visit [facility] Nephrology [place] [address] [place] [address] Julio Silva MD [address] [place] [address] documented as of this encounter Visit Diagnoses Not on filedocumented in this encounter Care Teams Infusion Nurse Relationship Specialty Start Date End Date Aba Espinoza MD [address] [place] [address] [place] [phone] PCP - General Family Medicine 07/27/16 Fili Sanchez MD [address] [facility] [address] [place] [address] Internal Medicine-Endocrinology, Diabetes & Metabolism 04/11/14 documented as of this encounter
--- OUTSIDE RECORDS SUMMARY | 2024-01-18 14:56 | XMS_ITS | Encounter Summary ---
Author Organization [place] [address] Care Team Providers Care Retail Representative Name Role Phone Fili Sanchez MD Unavailable [phone] Aba Espinoza MD Primary Care Provider [phone] Reason for Visit * Reason Onset Date Comments Results 11/27/2021 Encounter Details Date Type Department Care Team (Late st Contact Info) Description 11/27/2021 [facility]phone [facility] 1500 [facility] [address] [place] [address] Fili Sanchez MD [address] [address] Results Social History Tobacco Use Types Packs/Day Years [...] suspected to have Coronavirus/COVID-19? No / Unsure 11/26/2021 8:23 AM EDT documented as of this encounter Miscellaneous Notes * Telephone Encounter - Julissa Thomas RN - 11/27/2021 3:26 PM EDT Left message with results and recommendations. Instructed to call if have questions. * Telephone Encounter - Julissa Thomas RN - 11/27/2021 3:24 PM EDT ----- Message from Fili Sanchez MD sent at 11/27/2021 3:19 PM EDT ----- Hba1c is 7.1%. Better than before. Cholesterol is at goal. Creatinine is higher than normal though stable. documented in this encounter Plan of Treatment Upcoming Encounters Date Type Department Care Team (Late st Contact Info) Description 04/26/2024 9:00 AM EDT Office Visit [facility] Nephrology [place] [address] [place] [address] Julio Silva MD [address] [place] [address] documented as of this encounter Visit Diagnoses Not on filedocumented in this encounter Care Teams Retail Representative Relationship Specialty Start Date End Date Aba Espinoza MD [address] [place] [address] PCP - General Family Medicine 07/27/16 Fili Sanchez MD [address] [facility] [address] [place] [address] Internal Medicine-Endocrinology, Diabetes & Metabolism 04/11/14 documented as of this encounter
--- OUTSIDE RECORDS SUMMARY | 2024-01-18 14:56 | XMS_ITS | Encounter Summary ---
Author Organization [place] [address] Care Team Providers Care Tone Artist Apprentice Name Role Phone Fili Sanchez MD Unavailable [phone] Aba Espinoza MD Primary Care Provider [phone] Reason for Visit * Reason Onset Date Comments Medication Refill 09/16/2021 Encounter Details Date Type Department Care Team (Late st Contact Info) Description 09/16/[address] [facility] 1500 [facility] [address] [place] [address] Fili Sanchez MD [address] [address] Medication Refill Social History Tobacco [...] Refills Last Filled Start Date End Date simvastatin (ZOCOR) 40 mg Oral Tablet Take 1 Tablet by mouth nightly. 90 Tablet 3 09/16/2021 11/25/2022 documented in this encounter Miscellaneous Notes * Telephone Encounter - Donna Marrufo - 09/16/2021 8:21 AM EDT Who is requesting the refill? patient Name of medication. Simvastatin 30 or 90 day supply? Pharmacy and Location How many days of medication left on hand? Future Appointment: Patient has appointment with 10/26/[address] Sanchez. Route to [place]. Additional Notes : documented in this encounter Plan of Treatment Upcoming Encounters Date Type Department Care Team (Late st Contact Info) Description 04/26/2024 9:00 AM EDT Office Visit [facility] Nephrology [place] [address] [facility] [address] [facility] [address] [place] [address] Julio Silva MD [address] [facility] [facility] [address] [place] [address] documented as of this encounter Visit Diagnoses Not on filedocumented in this encounter Discontinued Medications Medication Sig Discontinue Reason Start Date End Da te simvastatin (ZOCOR) 40 mg Oral Tablet TAKE 1 TABLET NIGHTLY Reorder 09/05/2020 09/16/2021 documented as of this encounter Care Teams Tone Artist Apprentice Relationship Specialty Start Date End Date Aba Espinoza MD [address] [place] [phone] PCP - General Family Medicine 07/27/16 Fili Sanchez MD [address] [address] Internal Medicine-Endocrinology, Diabetes & Metabolism 04/11/14 documented as of this encounter
--- OUTSIDE RECORDS SUMMARY | 2024-01-18 14:56 | XMS_ITS | Encounter Summary ---
Author Organization [facility] [place] [address] Care Team Providers Care Spool Sorter Name Role Phone Fili Sanchez MD Unavailable [phone] Aba Espinoza MD Primary Care Provider [phone] Encounter Details Date Type Department Care Team (Latest Contact Info) Description 06/04/2021 Travel Social History Tobacco Use Types Packs/Day Years Used Date Smoking Tobacco: Former Cigarettes 2 2.2 0 03/17/2014 - 06/14/2016 Smokeless Tobacco: Never Comments:3 months ago Alcohol Use Standard Drinks/Week Comments Yes 0 (1 standard drink = 0.6 oz pur e alcohol) 0-1 WEEKLY Sexually Active Control Partners Comments Yes Female Sex and Gender Information Value Date Recorded Sex Assigned at Not on file Legal Sex Male 12:38 PM EST Gender Identity Not on file Sexual Orientation Not on file COVID-19 Exposure Response Date Recorded In the last month, have you been in contact with someone who was confirmed or suspected to have Coronavirus / COVID-19? No / Unsure 06/04/2021 10:25 AM EDT documented as of this encounter Plan of Treatment Upcoming Encounters Date Type Department Care Team (Late st Contact Info) Description 04/26/2024 9:00 AM EDT Office Visit [facility] Nephrology [place] [address] [place] [address] Julio Silva MD [address] [place], [place] [address] documented as of this encounter Visit Diagnoses Not on filedocumented in this encounter Care Teams Spool Sorter Relationship Specialty Start Date End Date Aba Espinoza MD [address] [place] [address] [place] [address] PCP - General Family Medicine 07/27/16 Fili Sanchez MD [address] [facility] [address] [place] [address] Internal Medicine-Endocrinology, Diabetes & Metabolism 04/11/14 documented as of this encounter
--- OUTSIDE RECORDS SUMMARY | 2024-01-18 14:56 | XMS_ITS | Encounter Summary ---
Author Organization [facility] [place] [address] Care Team Providers Care Drafter Electromechanical Name Role Phone Fili Sanchez MD Unavailable [phone] Aba Espinoza MD Primary Care Provider [phone] Encounter Details Date Type Department Care Team (Latest Contact Info) Description 12/16/2021 Travel Social History Tobacco Use Types Packs/Day [...] suspected to have Coronavirus/COVID-19? No / Unsure 12/16/2021 8:10 AM EDT documented as of this encounter Plan of Treatment Upcoming Encounters Date Type Department Care Team (Late st Contact Info) Description 04/26/2024 9:00 AM EDT Office Visit [facility] Nephrology [place] [address] [place] [address] Julio Silva MD [address] [place], [place] [phone] documented as of this encounter Visit Diagnoses Not on filedocumented in this encounter Care Teams Drafter Electromechanical Relationship Specialty Start Date End Date Aba Espinoza MD [address] [place] [address] [place] [address] PCP - General Family Medicine 07/27/16 Fili Sanchez MD [address] [facility] [address] [place] [address] Internal Medicine-Endocrinology, Diabetes & Metabolism 04/11/14 documented as of this encounter
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
--- OUTSIDE RECORDS SUMMARY | 2024-01-18 14:56 | XMS_ITS | Encounter Summary ---
Author Organization [facility] [address] Care Team Providers Care Enginehouse Brakeman Name Role Phone Fili Sanchez MD Unavailable [phone] Aba Espinoza MD Primary Care Provider [phone] Encounter Details Date Type Department Care Team (Late st Contact Info) Description 10/21/2021 Orders Only [facility] Diabetes [place] 1500 [facility] [address] [place] [address] Fili Sanchez MD 1500 [facility] [address] [place] [phone] Controlled type 2 diabetes mellitus with stage 3 chronic kidney disease, with long-term current use of insulin (HCC) [...] 04/26/2024 9:00 AM EDT Office Visit [facility] Nephrology [place] [address] [place] [address] Julio Silva MD [address] [place] [address] documented as of this encounter Results * (ABNORMAL) COMPREHENSIVE METABOLIC PANEL (11/26/2021 8:39 AM EDT) Sodium 139 136 - 145 mmol/L 11/26/2021 1:27 PM EDT [facility] Potassium 4.8 3.5 - 5.0 mmol/L 11/26/2021 1:27 PM EDT [facility] Chloride 102 98 - 107 mmol/L 11/26/2021 1:27 PM EDT [facility] Total CO2 27 22 - 29 mmol/L 11/26/2021 1:27 PM EDT [facility] Anion Gap 10 7 - 16 mmol/L 11/26/2021 1:27 PM EDT [facility] Calcium 10.0 8.8 - 10.4 mg/dL 11/26/2021 1:27 PM EDT [facility] Glucose Lvl 150(H) 82 - 100 mg/dL 11/26/2021 1:27 PM EDT [facility] BUN 22 8 - 23 mg/dL 11/26/2021 1:27 PM EDT [facility] Creatinine 1.44(H) 0.67 - 1.30 mg/dL 11/26/2021 1:27 PM EDT [facility] Albumin 4.2 3.2 - 4.6 gm/dL 11/26/2021 1:27 PM EDT [facility] Total Protein 7.1 6.4 - 8.3 gm/dL 11/26/2021 1:27 PM EDT [facility] Bili Total 0.4 0.1 - 1.4 mg/dL 11/26/2021 1:27 PM EDT [facility] ALT 14 <=41 U/L 11/26/2021 1:27 PM EDT [facility] AST 13 <=40 U/L 11/26/2021 1:27 PM EDT [facility], [facility] Alk Phos 95 40 - 129 U/L 11/26/2021 1:27 PM EDT [facility], [facility] eGFR (CKD-EPIcr 2020) 52(L) >=60 mL/min/1.7 3 m2 11/26/2021 1:27 PM EDT [facility] Comment:Estimated GFR was ca lculated using the CKD-EPIcr (2020) equation refit without race. The equation is recommended by the National Kidney Foundation - [place] [employer] of Nephrology Task Force. Blood VENOUS BLOOD / Unknown Venipuncture / Unknown 11/26/2021 8:39 AM EDT 11/26/2021 8:39 AM EDT Fili Sanchez MD CHEMISTRY ORDERABLES Fin al Result [facility] [address] [facility] , [place] [address] [facility] [address] [place] [address] * (ABNORMAL) HEMOGLOBIN A1C (11/26/2021 8:39 AM EDT) Hgb A1C 7.1(H) 4.2 - 5.6 % 11/26/2021 12:30 PM EDT [facility], [facility] Est. Avg Glucose 157 mg/dL 11/26/2021 12:30 PM EDT [facility], [facility] Blood VENOUS BLOOD / Unknown Venipuncture / Unknown 11/26/2021 8:39 AM EDT 11/26/2021 8:39 AM EDT Narrative [facility] - 11/26/2021 12:30 PM EDT REFERENCE RANGE: Normal: 4.0-5.6% Pre-diabetes: 5.7-6.4% Provisional diagnosis of diabetes: >6.4% Hgb F>10% and anything which shortens red cell survival, such as hemolytic anemia, or unstable hemoglobin variants such as HbSS, HbSC, or HbCC, will lower the HbA1c value associated with a given level of glycemic control. ? Fili Sanchez MD CHEMISTRY ORDERABLES Fin al Result Performing Organization Address City/[facility] Co de Phone Number [facility] [employer] [address] [facility] , [place] [address] * LIPID PANEL REFLEX (11/26/2021 8:39 AM EDT) [facility] Signature Cholesterol 97 <200 mg/dL 11/26/2021 1:28 PM EDT [employer] [facility] Comment: < 200 ?Desirable 200 - 239 ? Borderline High >= 240 ?High Triglyceride 104 <150 mg/dL 11/26/2021 1:28 PM EDT [employer] Comment: < 150 ? Normal 150 - 199 ?Borderline High 200 - 499 ?High ??>= 500 ? Very High HDL 40 >=40 mg/dL 11/26/2021 1:28 PM EDT [employer] Comment: ??> 60 ?Optimal 40 - 60 ?Acceptable ?? < 40 ?Low LDL Calculated 37 <100 mg/dL 11/26/2021 1:28 PM EDT [employer] Non-HDL-C Calculated 57 <=129 mg/dL 11/26/2021 1:28 PM EDT [employer] Comment: <130 ?Desirable 130-159 Above Desirable 160-189 Borderline High 190-219 High >= 220 ??Very High Fasting Specimen? Yes None 022 1:28 PM EDT [facility] Blood VENOUS BLOOD / Unknown Venipuncture / Unknown 11/26/2021 8:39 AM EDT 11/26/2021 8:39 AM EDT Fili Sanchez MD CHEMISTRY ORDERABLES Fin al Result Performing Organization Address City/[facility] Co de Phone Number [facility] [employer] [address] [place] [address], [address] [place], [place] [id number] [address] [address] documented in this encounter Visit Diagnoses Diagnosis Controlled type 2 diabetes mellitus with stage 3 chronic kidney disease, with long-term current use of insulin (HCC)- Primary documented in this encounter Care Teams Enginehouse Brakeman Relationship Specialty Start Date End Date Aba Espinoza MD [address] [place] [address] [place] [phone] PCP - General Family Medicine 07/27/16 Fili Sanchez MD [address] [facility] [address] [place] [address] Internal Medicine-Endocrinology, Diabetes & Metabolism 04/11/14 documented as of this encounter
--- OUTSIDE RECORDS SUMMARY | 2024-01-18 14:56 | XMS_ITS | Encounter Summary ---
Author Organization [facility] [place] [address] Care Team Providers Care Obstetrics Tech Name Role Phone Fili Sanchez MD Unavailable [phone] Aba Espinoza MD Primary Care Provider [phone] Reason for Visit * Reason Onset Date Comments Medication Refill 05/02/2021 Encounter Details Date Type Department Care Team (Late st Contact Info) Description 05/02/2021 [facility] [address] [facility] [address] [place] [address] Fili Sanchez MD [address] [address] Medication Refill Social History Tobacco [...] encounter Miscellaneous Notes * Telephone Encounter - Theresa Nowak CPhT - 05/04/2021 3:28 PM EDT JARDIANCE- Medication refill requested too soon. Refill request denied. Refills sent on 05/04/2021 with Qty: 30 and 5 refills. Refill request already responded to within 72 hours. Request denied with refill too soon message topharmacy. No diagnosis code associated with Rx. documented in this encounter Plan of Treatment Upcoming Encounters Date Type Department Care Team (Late st Contact Info) Description 04/26/2024 9:00 AM EDT Office Visit [facility]phrology [place] [address] [facility] [address] [place] [address] Julio Silva MD [address] [facility] [address] [place] [address] documented as of this encounter Visit Diagnoses Not on filedocumented in this encounter Care Teams Obstetrics Tech Relationship Specialty Start Date End Date Aba Espinoza MD [address] [place] [phone] PCP - General Family Medicine 07/27/16 Fili Sanchez MD [address] [facility] [address] [place] [phone] Internal Medicine-Endocrinology, Diabetes & Metabolism 04/11/14 documented as of this encounter
--- OUTSIDE RECORDS SUMMARY | 2024-01-18 14:56 | XMS_ITS | Encounter Summary ---
Author Organization [place] [address] Care Team Providers Care Track Man Name Role Phone Fili Sanchez MD Unavailable [phone] Aba Espinoza MD Primary Care Provider [phone] Encounter Details Date Type Department Care Team (Latest Contact Info) Description 11/26/2021 8:25 AM EDT - 11/26/2021 11:59 PM EDT Hospital Encounter [facility] [address] [place] [address] Controlled type 2 diabetes mellitus with [...] Blood Sugar Diagnostic (ACCU-CHEK GUIDE TEST STRIPS) [facility] Strip Use to test blood sugars daily. Dx Code:E11.65 100 Strip 3 11/12/2020 escitalopram oxalate (LEXAPRO) 20 mg Oral Tablet Take by mouth daily. magnesium oxide 400 mg magnesium Oral Capsule Take by mouth. Take 2 times daily nitroGLYCERIN (NITROLINGUAL) 400 mcg/spray TL [place], Non-Aerosol Place 1 [place] under the tongue every 5 minutes as [...] 2ND GEN PEN NEEDLE 32 gauge x [facility] Needle USE ONCE [...] Office Visit [facility] Nephrology [place] [address] [place], [place] [phone] Julio Silva MD [address] [place], [place] [phone] documented as of this encounter Procedures Procedure Name Priority Date/Time Associated Diagnosis Comments LIPID PANEL REFLEX Routine 11/26/2021 8: 39 AM EDT Controlled type 2 diabetes mellitus with stage 3 chronic kidney disease, with long-term current use of insulin (HCC) HEMOGLOBIN A1C Routine 11/26/2021 8:39 AM EDT Controlled type 2 diabetes mellitus with stage 3 chronic kidney disease, with long-term current use of insulin (HCC) COMPREHENSIVE METABOLIC PANEL Routine 11/26/2021 8:39 AM EDT Controlled type 2 diabetes mellitus with stage 3 chronic kidney disease, with long-term current use of insulin (HCC) documented in this encounter Results * (ABNORMAL) COMPREHENSIVE METABOLIC [...] 11/26/2021 1:27 PM EDT [facility], [facility] Bili Total 0.4 0.1 - 1.4 mg/dL 11/26/2021 1:27 PM EDT [facility], [facility] ALT 14 <=41 U/L 11/26/2021 1:27 PM EDT [facility] AST 13 <=40 U/L 11/26/2021 1:27 PM EDT [facility], [facility] Alk Phos 95 40 - 129 U/L 11/26/2021 1:27 PM EDT [facility], [facility] eGFR (CKD-EPIcr 2020) 52(L) >=60 mL/min/1.7 3 m2 11/26/2021 1:27 PM EDT [facility] Comment:Estimated GFR was ca lculated using the CKD-EPIcr (2020) equation refit without race. The equation is recommended by the National Kidney Foundation - [place] Society of Nephrology Task Force. Blood VENOUS BLOOD / Unknown Venipuncture / Unknown 11/26/2021 8:39 AM EDT 11/26/2021 8:39 AM EDT Fili Sanchez MD CHEMISTRY ORDERABLES Fin al Result [facility], [address], [address] [place] [phone] [facility] [address] [place] [address] * (ABNORMAL) HEMOGLOBIN A1C (11/26/2021 8:39 AM EDT) Hgb A1C 7.1(H) 4.2 - 5.6 % 11/26/2021 12:30 PM EDT [facility], [facility] Est. Avg Glucose 157 mg/dL 11/26/2021 12:30 PM EDT [facility], [facility] Blood VENOUS BLOOD / Unknown Venipuncture / Unknown 11/26/2021 8:39 AM EDT 11/26/2021 8:39 AM EDT Narrative [facility], [facility] - 11/26/2021 12:30 PM EDT REFERENCE RANGE: Normal: 4.0-5.6% Pre-diabetes: 5.7-6.4% Provisional diagnosis of diabetes: >6.4% Hgb F>10% and anything which shortens red cell survival, such as hemolytic anemia, or unstable hemoglobin variants such as HbSS, HbSC, or HbCC, will lower the HbA1c value associated with a given level of glycemic control. ? Fili Sanchez MD CHEMISTRY ORDERABLES Fin al Result [facility] [address] [facility] , [place] [address] * LIPID PANEL REFLEX (11/26/2021 8:39 AM EDT) [facility] Signature Cholesterol 97 <200 mg/dL 11/26/2021 1:28 PM EDT [facility] Comment: < 200 ?Desirable 200 - 239 ? Borderline High >= 240 ?High Triglyceride 104 <150 mg/dL 11/26/2021 1:28 PM EDT [facility] Comment: < 150 ? Normal 150 - 199 ?Borderline High 200 - 499 ?High ??>= 500 ? Very High HDL 40 >=40 mg/dL 11/26/2021 1:28 PM EDT [facility] Comment: ??> 60 ?Optimal 40 - 60 ?Acceptable ?? < 40 ?Low LDL Calculated 37 <100 mg/dL 11/26/2021 1:28 PM EDT [employer] Non-HDL-C Calculated 57 <=129 mg/dL 11/26/2021 1:28 PM EDT [employer] Comment: <130 ?Desirable 130-159 Above Desirable 160-189 Borderline High 190-219 High >= 220 ??Very High Fasting Specimen? Yes None 022 1:28 PM EDT [facility] Blood VENOUS BLOOD / Unknown Venipuncture / Unknown 11/26/2021 8:39 AM EDT 11/26/2021 8:39 AM EDT Fili Sanchez MD CHEMISTRY ORDERABLES Fin al Result [facility], [facility] [address] [facility], [place] [address] [facility] [address] [place] [address] documented in this encounter Visit Diagnoses Diagnosis Controlled type 2 diabetes mellitus with stage 3 chronic kidney disease, with long-term current use of insulin (HCC) documented in this encounter Care Teams Track Man Relationship Specialty Start Date End Date Aba Espinoza MD [address] [place] [phone] PCP - General Family Medicine 07/27/16 Fili Sanchez MD [address] [facility] [address] [place] [address] Internal Medicine-Endocrinology, Diabetes & Metabolism 04/11/14 documented as of this encounter
--- OUTSIDE RECORDS SUMMARY | 2024-01-18 14:56 | XMS_ITS | Encounter Summary ---
Author Organization [place] [address] Care Team Providers Care Correctional Supervisor Lieutenant Name Role Phone Fili Sanchez MD Unavailable [phone] Aba Espinoza MD Primary Care Provider [phone] Reason for Visit * Reason Onset Date Comments Medication Refill 08/07/2021 Encounter Details Date Type Department Care Team (Late st Contact Info) Description [facility]/07[facility] [address] [facility] [address] [place] [phone] Shama Roach MD 1500 [place] [address] Medication Refill Social History Tobacco Use Types [...] EDT Office Visit [facility] Nephrology [place] [address] [place] [address] Julio Silva MD [address] [place] [address] documented as of this encounter Visit Diagnoses Not on filedocumented in this encounter Care Teams Correctional Supervisor Lieutenant Relationship Specialty Start Date End Date Aba Espinoza MD [address] [place] [phone] PCP - General Family Medicine 07/27/16 Fili Sanchez MD 1500 [facility] [address] [place] [address] Internal Medicine-Endocrinology, Diabetes & Metabolism 04/11/14 documented as of this encounter
--- OUTSIDE RECORDS SUMMARY | 2024-01-18 14:56 | XMS_ITS | Encounter Summary ---
Author Organization [place] [address] Care Team Providers Care Urban Planning Teacher Name Role Phone Fili Sanchez MD Unavailable [phone] Aba Espinoza MD Primary Care Provider [phone] Reason for Visit * Reason Onset Date Comments Medication Refill 06/24/2021 Encounter Details Date Type Department Care Team (Late st Contact Info) Description 06/24/[address] [facility] [address] [facility] [address] [place] [address] Fili Sanchez MD [address] [address] Medication Refill Social History Tobacco [...] Tablet by mouth daily. 90 Tablet 1 06/24/2021 11/26/2021 documented in this encounter Miscellaneous Notes * Telephone Encounter - Lizy Stuart MA - 06/24/2021 11:23 AM EDT Script sent in. * Telephone Encounter - Krystle Mcdonald - 06/24/2021 9:03 AM EDT Who is requesting the refill? Pt Name of medication. glipiZIDE (GLUCOTROL) 5 mg Oral Tablet Extended Rel 24 hr 30 or 90 day supply? 90 Pharmacy and Location [facility] [id number] [place] [address] [address] [facility] - [phone] How many days of medication left on hand? 7 days Future Appointment: Patient has appointment with on 10/08/21. Route to [place]. Additional Notes : documented in this encounter Plan of Treatment Upcoming Encounters Date Type Department Care Team (Late st Contact Info) Description 04/26/2024 9:00 AM EDT Office Visit [facility] Nephrology [place] [address] [facility] [place] [address] Julio Silva MD [address] [facility] [place] [address] documented as of this encounter Visit Diagnoses Not on filedocumented in this encounter Discontinued Medications Medication Sig Discontinue Reason Start Date End Da te glipiZIDE (GLUCOTROL) 5 mg Oral Tablet Extended Rel 24 hr TAKE 1 TABLET DAILY Reorder 12/11/2020 06/24/2021 documented as of this encounter Care Teams Urban Planning Teacher Relationship Specialty Start Date End Date Aba Espinoza MD [address] [place] [address] [place] [phone] PCP - General Family Medicine 07/27/16 Fili Sanchez MD [address] [address] Internal Medicine-Endocrinology, Diabetes & Metabolism 04/11/14 documented as of this encounter
--- OUTSIDE RECORDS SUMMARY | 2024-01-18 14:56 | XMS_ITS | Encounter Summary ---
Author Organization [facility] [place] [address] Care Team Providers Care Men'S Swim Coach Name Role Phone Fili Sanchez MD Unavailable [phone] Aba Espinoza MD Primary Care Provider [phone] Encounter Details Date Type Department Care Team (Latest Contact Info) Description 12/14/2021 Travel Social History Tobacco Use Types Packs/Day [...] 9:00 AM EDT Office Visit [facility] Nephrology [place] [address] [place] [place] [address] Julio Silva MD [address] [place], [place] [id number] documented as of this encounter Visit Diagnoses Not on filedocumented in this encounter Care Teams Men'S Swim Coach Relationship Specialty Start Date End Date Aba Espinoza MD [address] [place] [address] [place] [address] PCP - General Family Medicine 07/27/16 Fili Sanchez MD [address] [facility] [address] [place] [address] Internal Medicine-Endocrinology, Diabetes & Metabolism 04/11/14 documented as of this encounter
--- OUTSIDE RECORDS SUMMARY | 2024-01-18 14:56 | XMS_ITS | Encounter Summary ---
Author Organization [place] [address] Care Team Providers Care Principal Planner Name Role Phone Fili Sanchez MD Unavailable [phone] Aba Espinoza MD Primary Care Provider [phone] Reason for Visit * Reason Comments Diabetes type 2 * Consultation (Routine) - Closed Specialty Diagnoses / Procedures Referred By Kadie casillas Referred To Contact Internal Medicine-Endocrinology , Diabetes & Metabolism / Diabetes Services Diagnoses Type 2 diabetes mellitus without complications (HCC) dm ty 2/ 4 months per 11/19/19 Procedures DM FOLLOW UP Aba Espinoza MD [address] [place] [address] Phone: tel: fax: Fili Sanchez MD [address] [facility] [address] [place] [address] Phone: tel: fax: Referral ID Status Reason Start Date Expiration Date Visits Re quested Visits Authorized [id number] Closed 03/24/2020 03/24/2021 99 99 Encounter Details Date Type Department Care Team (Late st Contact Info) Description 02/20/2021 10:40 AM EST [facility] [place] [address] [facility] [address] [place] [address] Fili Sanchez MD [address] [facility] [address] [place] [address] Controlled type 2 diabetes mellitus with stage 3 chronic kidney disease, with long-term current use of insulin (HCC) (Primary Dx); Dyslipidemia; Hypertension associated with diabetes (HCC) (HCC) Social History Tobacco Use Types [...] Sign Reading Time Taken Comments Blood Pressure 121/69 02/20/2021 10:57 AM EST Pulse 66 02/20/2021 10:57 AM EST Temperature - - Respiratory Rate 15 02/20/2021 10:57 AM EST Oxygen Saturation - - Inhaled Oxygen Concentration - - Weight 119.7 kg (264 lb) 02/20/2021 10:57 AM EST Height 185.4 cm (6' 1 ) 02/20/2021 10:57 AM EST Body Mass Index 34.83 02/20/2021 10:57 AM EST documented in this encounter Ordered Prescriptions Prescription Sig Dispense Quantity Refills Last Filled Start Date End Date Insulin glargine (BASAGLAR KWIKPEN U-100 INSULIN) 100 unit/mL (3 mL) SubQ Insulin Pen 18 units every day. 15 mL 2 02/20/2021 11/26/2021 documented in this encounter Progress Notes * Fili Sanchez MD - 02/20/2021 10:40 AM EST Diabetes Associated symptoms include arthralgias. Dane Ray is a 70 y.o. male who presents today for follow up Diabetes Mellitus since 2003. He is here for follow up. Current diabetes regimen includes Metformin 1000 mg twice a day. Glipizide ER 5 mg a day Jardiance 25 mg a day Basaglar 16 units a day Checking 1-2x/day. Average 165 (140-180). Denies lows. Lowest BS was 87. Has hx of CABG and found to have EF of 10%. Following with cardiology at [place] as needed and goes to [facility] every 6 months. States he is eligible for LVAD but symptoms are stable so holding off. May eventually need transplant. He quit smoking. Review of Systems HENT: Positive for dental problem, postnasal drip, rhinorrhea, sinus pressure and sinus pain. Eyes: Negative. Musculoskeletal: Positive for arthralgias. Objective Vitals: 02/20/21 1057 BP: 121/69 Pulse: 66 Resp: 15 Weight: 264 lb (119.7 kg) Height: 6' 1 (1.854 m) Objective: Physical Exam Constitutional: Appearance: He is well-developed. HENT: Head: Normocephalic and atraumatic. Neck: Thyroid: No thyromegaly. Vascular: No JVD. Trachea: No tracheal deviation. Cardiovascular: Rate and Rhythm: Normal rate and regular rhythm. Heart sounds: Normal heart sounds. Pulmonary: Effort: Pulmonary effort is normal. No respiratory distress. Breath sounds: Normal breath sounds. No wheezing. Skin: General: Skin is warm and dry. Neurological: Mental Status: He is alert and oriented to person, place, and time. Psychiatric: Behavior: Behavior normal. Thought Content: Thought content normal. Judgment: Judgment normal. Laboratory: Lab Results Component Value Date HGBA1C 6.9 (H) 02/19/2021 Lab Results Component Value Date CREATININE 1.48 (H) 02/19/2021 No results found for: TSHREFLEX Lab Results Component Value Date ALT 23 02/19/2021 AST 22 02/19/2021 ALKPHOS 57 02/19/2021 Lab Results Component Value Date URINEMICROAL 15.5 02/19/2021 Lab Results Component Value Date CHOLESTEROL 141 02/19/2021 Lab Results Component Value Date HDL 51 02/19/2021 Lab Results Component Value Date LDLCALC 69 02/19/2021 Lab Results Component Value Date TRIG 118 02/19/2021 No results found for: CHOLHDL Assessment and Plan: 1. Diabetes Mellitus Type 2 UnControlled Plan: -Continue metformin -Glipizide ER 5 mg a day -Increase Basaglar 18 units a day - Jardiance 25 mg a day. Tolerating well. - Call if BS less than 80 -Hypoglycemic symptoms, prevention and treatment discussed in detail. - Advised to keep glucose tab and hard candy with him all the time -unable to use actos due to HF. -check fingerstick 2 times a day.Diabetes Health Maintance: Eye exam: Advised yearly eye exam. States last exam in 2018 in [place]. Will call for report. Foot exam: 11/04 MATT/ARB:Losartan ASA: 81 mg once a day. Smoking: former smoker 2. HTN: Monitor BP at home. 3. Dyslipidemia: currently taking simvastatin 40 mg daily. Goal LDL of 70. At goal. 4. CAD with low EF Follow up with cardiology at [place] and at [facility] . No follow-ups on file. documented in this encounter Plan of Treatment Upcoming Encounters Date Type Department Care Team (Late st Contact Info) Description 04/26/2024 9:00 AM EDT Office Visit [facility] Nephrology [place] [address] [facility] [address] [address] Julio Silva MD [address] [place] [address] documented as of this encounter Results * (ABNORMAL) HEMOGLOBIN A1C (06/04/2021 10:35 AM EDT) Hgb A1C 7.4(H) 4.2 - 5.6 % 06/04/2021 3:41 PM EDT [facility] [employer] [employer] Est. Avg Glucose 166 mg/dL 06/04/2021 3:41 PM EDT [email or web address] [employer] Blood Venipuncture / Unknown 06/04/2021 10:35 AM EDT 06/04/2021 10:35 AM EDT Narrative [facility]REFERRED [facility] - 06/04/2021 3:41 PM EDT REFERENCE RANGE: Normal: 4.0-5.6% Pre-diabetes: 5.7-6.4% Provisional diagnosis of diabetes: >6.4% Hgb F>10% and anything which shortens red cell survival, such as hemolytic anemia, or unstable hemoglobin variants such as HbSS, HbSC, or HbCC, will lower the HbA1c value associated with a given level of glycemic control. ? Fili Sanchez MD CHEMISTRY ORDERABLES Fin al Result [facility] [address] [facility] , [place] [address] * (ABNORMAL) COMPREHENSIVE METABOLIC PANEL (06/04/2021 10:35 AM EDT) Sodium 136 136 - 145 mmol/L 06/04/2021 4:15 PM EDT [facility] Potassium 4.8 3.5 - 5.0 mmol/L 06/04/2021 4:15 PM EDT [facility] Chloride 97(L) 98 - 107 mmol/L 06/04/2021 4:15 PM EDT [facility] Total CO2 27 22 - 29 mmol/L 06/04/2021 4:15 PM EDT [facility] Anion Gap 12 7 - 16 mmol/L 06/04/2021 4:15 PM EDT [facility] Calcium 10.1 8.8 - 10.4 mg/dL 06/04/2021 4:15 PM EDT [facility] Glucose Lvl 138(H) 82 - 100 mg/dL 06/04/2021 4:15 PM EDT [facility] BUN 32(H) 8 - 23 mg/dL 06/04/2021 4:15 PM EDT [facility] Creatinine 1.43(H) 0.67 - 1.30 mg/dL 06/04/2021 4:15 PM EDT [facility] Albumin 4.6 3.2 - 4.6 gm/dL 06/04/2021 4:15 PM EDT [facility] Total Protein 7.5 6.4 - 8.3 gm/dL 06/04/2021 4:15 PM EDT [facility] Bili Total 0.5 0.1 - 1.4 mg/dL 06/04/2021 4:15 PM EDT [email or web address] ALT 23 <=41 U/L 06/04/2021 4:15 PM EDT [facility], [facility] AST 22 <=40 U/L 06/04/2021 4:15 PM EDT [email or web address], [facility] Alk Phos 74 40 - 129 U/L 06/04/2021 4:15 PM EDT [email or web address] eGFR (CKD-EPIcr 2020) 53(L) >=60 mL/min/1.7 3 m2 06/04/2021 4:15 PM EDT [facility] Comment:Estimated GFR was ca lculated using the CKD-EPIcr (2020) equation refit without race. The equation is recommended by the National Kidney Foundation - [place] [employer] of Nephrology Task Force. Blood Venipuncture / Unknown 06/04/2021 10:35 AM EDT 06/04/2021 10:35 AM EDT Fili Sanchez MD CHEMISTRY ORDERABLES Fin al Result [facility] [address] [facility], [place] [address] [facility] [address] [place], [place] [id number] * (ABNORMAL) LIPID PANEL REFLEX (06/04/2021 10:35 AM EDT) Cholesterol 133 <200 mg/dL 06/04/2021 4:15 PM EDT [facility] Comment: < 200 ?Desirable 200 - 239 ? Borderline High >= 240 ?High Triglyceride 172(H) <150 mg/dL 06/04/2021 4:15 PM EDT [email or web address] Comment: < 150 ? Normal 150 - 199 ?Borderline High 200 - 499 ?High ??>= 500 ? Very High HDL 46 >=40 mg/dL 06/04/2021 4:15 PM EDT [facility] Comment: ??> 60 ?Optimal 40 - 60 ?Acceptable ?? < 40 ?Low LDL Calculated 58 <100 mg/dL 06/04/2021 4:15 PM EDT [facility] Non-HDL-C Calculated 87 <=129 mg/dL 06/04/2021 4:15 PM EDT [facility] [email or web address] [employer] Comment: <130 ?Desirable 130-159 Above Desirable 160-189 Borderline High 190-219 High >= 220 ??Very High Fasting Specimen? Yes None 022 4:15 PM EDT [facility] Blood Venipuncture / Unknown 06/04/2021 10:35 AM EDT 06/04/2021 10:35 AM EDT Fili Sanchez MD CHEMISTRY ORDERABLES Fin al Result Performing Organization Address [facility] de Phone Number [facility] [email or web address] [facility] [address] [facility] , [place] [id number] [facility] 1 [place] [address] * THYROID STIMULATING HORMONE (06/04/2021 10:35 AM EDT) [facility] Signature TSH 3.010 0.270 - 4.200 mcIU/mL 06/04/2021 5:43 PM EDT [facility] Blood VENOUS BLOOD / Unknown Venipuncture / Unknown 06/04/2021 10:35 AM EDT 06/04/2021 10:35 AM EDT Narrative [facility]REFERR[facility] - 06/04/2021 5:43 PM EDT Ingestion of pratik doses of biotin (>5 mg/day) taken within 8 hours of drawing blood sample can interfere with this immunoassay test. Fili Sanchez MD CHEMISTRY ORDERABLES Fin al Result Performing Organization Address [facility] de Phone Number [employer] [address] [facility] , [place] [address] documented in this encounter Visit Diagnoses Diagnosis Controlled type 2 diabetes mellitus with stage 3 chronic kidney disease, with long-term current use of insulin (HCC)- Primary Dyslipidemia Other and unspecified hyperlipidemia Hypertension associated with diabetes (HCC) Type II or unspecified type diabetes mellitus with other specified manifestations, not stated as uncontrolled documented in this encounter Discontinued Medications Medication Sig Discontinue Reason Start Date End Da te Insulin glargine (BASAGLAR KWIKPEN U-100 INSULIN) 100 unit/mL (3 mL) SubQ Insulin Pen 14 units every day. 06/27/2020 022 documented as of this encounter Historical Medications * This list may reflect changes made after this encounter. rOPINIRole (REQUIP) 0.5 mg Oral Tablet Take 0.5 mg by mouth. Takes once daily at night 01/30/2021 magnesium oxide 400 mg magnesium Oral Capsule Take by mouth. Take 2 times daily added in this encounter Care Teams Principal Planner Relationship Specialty Start Date End Date Aba Espinoza MD [address] [facility] [address] [place] [address] PCP - General Family Medicine 07/27/16 Fili Sanchez MD [address] [address] Internal Medicine-Endocrinology, Diabetes & Metabolism 04/11/14 documented as of this encounter
--- OUTSIDE RECORDS SUMMARY | 2024-01-18 14:56 | XMS_ITS | Encounter Summary ---
Author Organization [place] [address] Care Team Providers Care Building Estimator Name Role Phone Fili Sanchez MD Unavailable [phone] Aba Espinoza MD Primary Care Provider [phone] Encounter Details Date Type Department Care Team (Latest Contact Info) Description 12/16/2021 7:00 AM EDT - 12/16/2021 11:59 PM EDT Hospital Encounter [facility] Cardiac Rehab [place] [address] [place] [address] Discharge Disposition: Home or Self [...] times daily nitroGLYCERIN (NITROLINGUAL) 400 mcg/spray TL [place], Non-Aerosol Place 1 [place] under the tongue every 5 minutes as [...] Each by [facility]Non-Andrea g; Combo Route) route every 14 days. 3 [...] Description 04/26/2024 9:00 AM EDT [facility] [place] [address] [facility] [address] [place] [address] Julio Silva MD [address] [place] [address] documented as of this encounter Procedures Procedure Name Priority Date/Time Associated Diagnosis Comments GLUCOSE METER POC Routine 12/16/2021 7:0 8 AM EDT documented in this encounter Results * (ABNORMAL) GLUCOSE METER POC (12/16/2021 7:08 AM EDT) Glucose Meter POC 187(H) 70 - 100 mg/dL 12/16/2021 7:10 AM EDT [facility] Sample Type Capillary 12/16/2021 7:10 AM EDT [facility] Patient Status Non-Critical Patient 12/16/2021 7:10 AM EDT [facility] Blood BLOOD SPECIMEN / Unknown 12/16/2021 7:08 AM EDT 12/16/2021 7:10 AM EDT us Surya Hzd MD POINT OF CARE TEST ORDER AURELIO Final Result [facility] [address] [place] [address] documented in this encounter Visit Diagnoses Not on filedocumented in this encounter Care Teams Building Estimator Relationship Specialty Start Date End Date Aba Espinoza MD [address] [place] [address] PCP - General Family Medicine 07/27/16 Fili Sanchez MD [address] [facility] [address] [place] [address] Internal Medicine-Endocrinology, Diabetes & Metabolism 04/11/14 documented as of this encounter
--- OUTSIDE RECORDS SUMMARY | 2024-01-18 14:56 | XMS_ITS | Encounter Summary ---
Author Organization [facility] [place] [address] Care Team Providers Care Blacksmith Helper Name Role Phone Fili Sanchez MD Unavailable [phone] Aba Espinoza MD Primary Care Provider [phone] Encounter Details Date Type Department Care Team (Latest Contact Info) Description 11/23/2021 Travel Social History Tobacco Use Types Packs/Day [...] suspected to have Coronavirus/COVID-19? No / Unsure 11/23/2021 3:39 PM EDT documented as of this encounter Plan of Treatment Upcoming Encounters Date Type Department Care Team (Late st Contact Info) Description 04/26/2024 9:00 AM EDT Office Visit [facility] Nephrology [place] [address] [facility] [place] [address] Julio Silva MD [address] [place] [address] documented as of this encounter Visit Diagnoses Not on filedocumented in this encounter Care Teams Blacksmith Helper Relationship Specialty Start Date End Date Aba Espinoza MD [address] [place] [address] PCP - General Family Medicine 07/27/16 Fili Sanchez MD [address] [facility] [address] [place] [address] Internal Medicine-Endocrinology, Diabetes & Metabolism 04/11/14 documented as of this encounter
--- OUTSIDE RECORDS SUMMARY | 2024-01-18 14:56 | XMS_ITS | Encounter Summary ---
Author [place] [address] Care Team Providers Care Media Strategist Name Role Phone Fili Sanchez MD Unavailable [phone] Aba Espinoza MD Primary Care Provider [phone] Encounter Details Date Type Department Care Team (Latest Contact Info) Description 06/04/2021 10:30 AM EDT - 06/04/2021 11:59 PM EDT Hospital Encounter [facility] [address] [place] [address] Controlled type 2 diabetes mellitus with stage 3 chronic kidney disease, with long-term current use of insulin (HCC); Dyslipidemia Discharge Disposition: Home or Self Care Social [...] times daily nitroGLYCERIN (NITROLINGUAL) 400 mcg/spray TL Crane, Non-Aerosol Place 1 Crane under the tongue every 5 minutes as [...] 2ND GEN PEN NEEDLE 32 gauge x [facility] Needle USE ONCE DAILY TO GIVE INSULIN SHOT 100 Each 2 12/30/2020 01/18/2022 empagliflozin (JARDIANCE) 25 mg Oral Tablet Take 1 Tablet by mouth daily. 30 Tablet 5 05/04/2021 10/26/2021 Insulin glargine (BASAGLAR KWIKPEN U-100 INSULIN) 100 unit/mL (3 mL) SubQ Insulin Pen 18 units every day. 15 mL 2 02/20/2021 11/26/2021 documented as of this encounter Discharge Disposition Disposition Code Departure Means Destination Home or Self Care documented in this encounter Plan of Treatment Upcoming Encounters Date Type Department Care Team (Late st Contact Info) Description 04/26/2024 9:00 AM EDT Office Visit [facility] Nephrology [place] [address] [facility] [address] Julio Silva MD [address] [place] [address] documented as of this encounter Procedures Procedure Name Priority Date/Time Associated Diagnosis Comments LIPID PANEL REFLEX Routine 06/04/2021 10 :35 AM EDT Controlled type 2 diabetes mellitus with stage 3 chronic kidney disease, with long-term current use of insulin (HCC) Dyslipidemia THYROID STIMULATING HORMONE Routine 06/04/2021 10:35 AM EDT Controlled type 2 diabetes mellitus with stage 3 chronic kidney disease, with long-term current use of insulin (HCC) Dyslipidemia HEMOGLOBIN A1C Routine 06/04/2021 10:35 AM EDT Controlled type 2 diabetes mellitus with stage 3 chronic kidney disease, with long-term current use of insulin (HCC) COMPREHENSIVE METABOLIC PANEL Routine 06/04/2021 10:35 AM EDT Controlled type 2 diabetes mellitus with stage 3 chronic kidney disease, with long-term current use of insulin (HCC) documented in this encounter Results * (ABNORMAL) HEMOGLOBIN A1C (06/04/2021 10:35 AM EDT) Hgb A1C 7.4(H) 4.2 - 5.6 % 06/04/2021 3:41 PM EDT [facility], [facility] Est. Avg Glucose 166 mg/dL 06/04/2021 3:41 PM EDT [facility] Blood Venipuncture / Unknown 06/04/2021 10:35 AM EDT 06/04/2021 10:35 AM EDT Narrative [facility] - 06/04/2021 3:41 PM EDT REFERENCE RANGE: Normal: 4.0-5.6% Pre-diabetes: 5.7-6.4% Provisional diagnosis of diabetes: >6.4% Hgb F>10% and anything which shortens red cell survival, such as hemolytic anemia, or unstable hemoglobin variants such as HbSS, HbSC, or HbCC, will lower the HbA1c value associated with a given level of glycemic control. ? us Fili Sanchez MD CHEMISTRY ORDERABLES Fin al Result [facility] [address] [facility] , [place] [address] * (ABNORMAL) COMPREHENSIVE METABOLIC PANEL (06/04/2021 10:35 [...] 4:15 PM EDT [facility] ALT 23 <=41 U/L 06/04/2021 4:15 PM EDT [facility] AST 22 <=40 U/L 06/04/2021 4:15 PM EDT [facility] Alk Phos 74 40 - 129 U/L 06/04/2021 4:15 PM EDT [facility] eGFR (CKD-EPIcr 2020) 53(L) >=60 mL/min/1.7 3 m2 06/04/2021 4:15 PM EDT [facility] Comment:Estimated GFR was ca lculated using the CKD-EPIcr (2020) equation refit without race. The equation is recommended by the National Kidney Foundation - [place] [employer] of Nephrology Task Force. Blood Venipuncture / Unknown 06/04/2021 10:35 AM EDT 06/04/2021 10:35 AM EDT Fili Sanchez MD CHEMISTRY ORDERABLES Fin al Result [facility] [address] [facility], [place] [address] [facility] [address] [place] [address] * (ABNORMAL) LIPID PANEL REFLEX (06/04/2021 10:35 AM EDT) Cholesterol 133 <200 mg/dL 06/04/2021 4:15 PM EDT [facility] Comment: < 200 ?Desirable 200 - 239 ? Borderline High >= 240 ?High Triglyceride 172(H) <150 mg/dL 06/04/2021 4:15 PM EDT [facility] Comment: < 150 ? Normal 150 - 199 ?Borderline High 200 - 499 ?High ??>= 500 ? Very High HDL 46 >=40 mg/dL 06/04/2021 4:15 PM EDT [facility] Comment: ??> 60 ?Optimal 40 - 60 ?Acceptable ?? < 40 ?Low LDL Calculated 58 <100 mg/dL 06/04/2021 4:15 PM EDT [facility] Non-HDL-C Calculated 87 <=129 mg/dL 06/04/2021 4:15 PM EDT [facility] Comment: <130 ?Desirable 130-159 Above Desirable 160-189 Borderline High 190-219 High >= 220 ??Very High Fasting Specimen? Yes None 022 4:15 PM EDT [facility] Blood Venipuncture / Unknown 06/04/2021 10:35 AM EDT 06/04/2021 10:35 AM EDT Fili Sanchez MD CHEMISTRY ORDERABLES Fin al Result Performing Organization Address [facility] de Phone Number [facility] [address] [facility] , [place] [address] [facility] [address] [place] [address] * THYROID STIMULATING HORMONE (06/04/2021 10:35 AM EDT) [facility] TSH 3.010 0.270 - 4.200 mcIU/mL 06/04/2021 5:43 PM EDT [facility] Blood VENOUS BLOOD / Unknown Venipuncture / Unknown 06/04/2021 10:35 AM EDT 06/04/2021 10:35 AM EDT Narrative [facility] - 06/04/2021 5:43 PM EDT Ingestion of pratik doses of biotin (>5 mg/day) taken within 8 hours of drawing blood sample can interfere with this immunoassay test. Fili Sanchez MD CHEMISTRY ORDERABLES Fin al Result Performing Organization Address [facility] Co de Phone Number [facility] [address] [facility] , [place] [address] documented in this encounter Visit Diagnoses Diagnosis Controlled type 2 diabetes mellitus with stage 3 chronic kidney disease, with long-term current use of insulin (HCC) Dyslipidemia Other and unspecified hyperlipidemia documented in this encounter Care Teams Media Strategist Relationship Specialty Start Date End Date Aba Espinoza MD [address] [place] [address] [place] [address] PCP - General Family Medicine 07/27/16 Fili Sanchez MD [address] [address] Internal Medicine-Endocrinology, Diabetes & Metabolism 04/11/14 documented as of this encounter
--- OUTSIDE RECORDS SUMMARY | 2024-01-18 14:56 | XMS_ITS | Encounter Summary ---
Author Organization [facility] [place] [address] Care Team Providers Care Launch Leader Name Role Phone Fili Sanchez MD Unavailable [phone] Aba Espinoza MD Primary Care Provider [phone] Encounter Details Date Type Department Care Team (Latest Contact Info) Description 11/26/2021 Travel Social History Tobacco Use Types Packs/Day [...] EDT Office Visit [facility] Nephrology [place] [address] [place] [address] Julio Silva MD [address] [place], [place] [address] documented as of this encounter Visit Diagnoses Not on filedocumented in this encounter Care Teams Launch Leader Relationship Specialty Start Date End Date Aba Espinoza MD [address] [place] [address] [place] [address] PCP - General Family Medicine 07/27/16 Fili Sanchez MD [address] [facility] [address] [place] [phone] Internal Medicine-Endocrinology, Diabetes & Metabolism 04/11/14 documented as of this encounter
--- OUTSIDE RECORDS SUMMARY | 2024-01-18 14:56 | XMS_ITS | Encounter Summary ---
Author Organization [place] [address] Care Team Providers Care Compensator Name Role Phone Fili Sanchez MD Unavailable [phone] Aba Espinoza MD Primary Care Provider [phone] Reason for Visit * Reason Onset Date Comments Medication Refill 08/05/2021 Encounter Details Date Type Department Care Team (Late st Contact Info) Description 08/05/[address] [facility] [address] [facility] [address] [place] [address] Fili Sanchez MD [address] [address] Medication Refill Social History [...] daily. 180 Tablet 1 08/05/2021 03/03/2022 documented in this encounter Miscellaneous Notes * Telephone Encounter - Lizy Stuart MA - 08/05/2021 2:29 PM EDT Script sent in. * Telephone Encounter - Saida Cai - 08/05/2021 2:04 PM EDT Who is requesting the refill? self Name of medication. metformim 30 or 90 day supply? 90 Pharmacy and Location [facility] [id number] [place] [address] [address] [facility] [phone] How many days of medication left on hand? 0 Future Appointment: Patient has appointment with aniyah on 10/26. Route to [place]. Additional Notes : Pt needs a refill he takes 2 pills a day and last script was only for 60 days documented in this encounter Plan of Treatment Upcoming Encounters Date Type Department Care Team (Late st Contact Info) Description 04/26/2024 9:00 AM EDT Office Visit [facility] Nephrology [place] [address] [place] [address] Julio Silva MD [address] [place] [address] documented as of this encounter Visit Diagnoses Not on filedocumented in this encounter Discontinued Medications Medication Sig Discontinue Reason Start Date End Da te metFORMIN (GLUCOPHAGE) 1,000 mg Oral Tablet TAKE 1 TABLET TWICE A DAY Reorder 08/05/2020 08/05/2021 documented as of this encounter Care Teams Compensator Relationship Specialty Start Date End Date Aba Espinoza MD [address] [place] [phone] PCP - General Family Medicine 07/27/16 Fili Sanchez MD [address] [place] [phone] Internal Medicine-Endocrinology, Diabetes & Metabolism 04/11/14 documented as of this encounter
--- OUTSIDE RECORDS SUMMARY | 2024-01-18 14:56 | XMS_ITS | Encounter Summary ---
Author Organization [facility] [place] [address] Care Team Providers Care Gas Maker Helper Name Role Phone Fili Sanchez MD Unavailable [phone] Aba Espinoza MD Primary Care Provider [phone] Encounter Details Date Type Department Care Team (Latest Contact Info) Description 06/01/2021 Travel Social History Tobacco Use Types Packs/Day [...] have Coronavirus / COVID-19? No / Unsure 06/01/2021 9:46 PM EDT documented as of this encounter Plan of Treatment Upcoming Encounters Date Type Department Care Team (Late st Contact Info) Description 04/26/2024 9:00 AM EDT Office Visit [facility] Nephrology [place] [address] [place] [address] Julio Silva MD [address] [place], [place] [address] documented as of this encounter Visit Diagnoses Not on filedocumented in this encounter Care Teams Gas Maker Helper Relationship Specialty Start Date End Date Aba Espinoza MD [address] [place] [address] [place] [address] PCP - General Family Medicine 07/27/16 Fili Sanchez MD [address] [facility] [address] [place] [address] Internal Medicine-Endocrinology, Diabetes & Metabolism 04/11/14 documented as of this encounter
--- OUTSIDE RECORDS SUMMARY | 2024-01-18 14:56 | XMS_ITS | Encounter Summary ---
Author Organization [place] [address] Care Team Providers Care Clay Preparation Supervisor Name Role Phone Fili Sanchez MD Unavailable Aba Espinoza MD Primary Care Provider [phone] Reason for Visit * Reason Comments Diabetes type 2 * Consultation (Routine) - Closed Specialty Diagnoses / Procedures Referred By Kadie casillas Referred To Contact Internal Medicine-Endocrinology, Diabetes & Metabolism / Diabetes Services Diagnoses Diabetes mellitus, type 2 (HCC) dm ty 2/ 3-4 months per 02/20/21-bm Procedures DM FOLLOW UP Aba Espinoza MD [address] [place] [address] Phone: tel: fax: Fili Sanchez MD [address] [facility] [address] [place] [address] Phone: tel: fax: Referral ID Status Reason Start Date Expiration Date Visits Re quested Visits Authorized [id number] Closed 06/05/2021 06/05/2022 99 99 Encounter Details Date Type Department Care Team (Late st Contact Info) Description 06/05/2021 10:00 AM EDT [facility] [address] [facility] [address] [place] [address] Fili Sanchez MD [address] [facility] [address] [place] [address] Controlled type 2 diabetes mellitus with stage 3 chronic kidney disease, with long-term current use of insulin (HCC) (Primary Dx); Dyslipidemia; Hypertension associated with diabetes (HCC) (HCC); Severe obesity (BMI 35.0-39.9) with comorbidity (HCC) Social History Tobacco Use Types Packs/Day [...] Sign Reading Time Taken Comments Blood Pressure 100/69 06/05/2021 10:27 AM EDT Pulse 68 06/05/2021 10:27 AM EDT Temperature - - Respiratory Rate 16 06/05/2021 10:27 AM EDT Oxygen Saturation - - Inhaled Oxygen Concentration - - Weight 120.7 kg (266 lb) 06/05/2021 10:27 AM EDT Height 185.4 cm (6' 1 ) 06/05/2021 10:27 AM EDT Body Mass Index 35.09 06/05/2021 10:27 AM EDT documented in this encounter Progress Notes * Sonali Don RMA - 06/05/2021 10:00 AM EDT Forgot meter - tests BS once daily - typically around 130's-150's Pharm verified * Fili Sanchez MD - 06/05/2021 10:00 AM EDT Diabetes Associated symptoms include arthralgias. Dane Ray is a 70 y.o. male who presents today for follow up Diabetes Mellitus since 2003. He is here for follow up. Current diabetes regimen includes Metformin 1000 mg twice a day. Glipizide ER 5 mg a day Jardiance 25 mg a day Basaglar 18 units a day Checking 1-2x/day. Average 165 (140-180). Denies lows. NO BS less than 80 or higher than 200 Has hx of CABG and found to have EF of 10%. Following with cardiology at [place] as needed and goes to [facility] every 6 months. States he is eligible for LVAD but symptoms are stable so holding off. May eventually need transplant. He quit smoking. Review of Systems HENT: Positive for dental problem, postnasal drip, rhinorrhea, sinus pressure and sinus pain. Eyes: Negative. Musculoskeletal: Positive for arthralgias. Objective Vitals: 06/05/21 1027 BP: 100/69 Pulse: 68 Resp: 16 Weight: 266 lb (120.7 kg) Height: 6' 1 (1.854 m) Objective: [...] Laboratory: Lab Results Component Value Date HGBA1C 7.4 (H) 06/04/2021 Lab Results Component Value Date CREATININE 1.43 (H) 06/04/2021 No results found for: TSHREFLEX Lab Results Component Value Date ALT 23 06/04/2021 AST 22 06/04/2021 ALKPHOS 74 06/04/2021 Lab Results Component Value Date URINEMICROAL 15.5 02/19/2021 Lab Results Component Value Date CHOLESTEROL 133 06/04/2021 Lab Results Component Value Date HDL 46 06/04/2021 Lab Results Component Value Date LDLCALC 58 06/04/2021 Lab Results Component Value Date TRIG 172 (H) 06/04/2021 No results found for: CHOLHDL Assessment and Plan: 1. Diabetes Mellitus Type 2 UnControlled with CKD 3 Plan: -Continue metformin -Glipizide ER 5 mg a day - Basaglar 18 units a day - Jardiance [...] exam. States last exam in 2018 in [place]. Will call for report. Foot exam: 11/04 MATT/ARB:Losartan ASA: 81 mg once a day. Smoking: former smoker 2. HTN: Monitor BP at home. 3. Dyslipidemia: currently taking simvastatin 40 mg daily. Goal LDL of 70. At goal. 4. CAD with low EF Follow up with cardiology at [place] and at [facility] . 5. Right leg swelling Getting doppler to rule out clot. Return in about 4 months (around 10/05/2021). documented in this encounter Plan of Treatment Upcoming Encounters Date Type Department Care Team (Late st Contact Info) Description 04/26/2024 9:00 AM EDT Office Visit [facility] Nephrology [place] [address] [facility] [place] [address] Julio Silva MD [address] [place] [address] documented as of this encounter Visit Diagnoses Diagnosis Controlled type 2 diabetes mellitus with stage 3 chronic kidney disease, with long-term current use of insulin (HCC)- Primary Dyslipidemia Other and unspecified hyperlipidemia Hypertension associated with diabetes (HCC) Type II or unspecified type diabetes mellitus with other specified manifestations, not stated as uncontrolled Severe obesity (BMI 35.0-39.9) with comorbidity (HCC) documented in this encounter Historical Medications * This list may reflect changes made after this encounter. torsemide (DEMADEX) 10 mg Oral Tablet 10 mg. Takes one tab MWF 05/25/2021 carvediloL (COREG) 6.25 mg Oral Tablet Take 3.125 mg by mouth 2 times daily. 03/23/2021 04/05/2022 added in this encounter Care Teams Clay Preparation Supervisor Relationship Specialty Start Date End Date Aba Espinoza MD [address] [place] [address] PCP - General Family Medicine 07/27/16 Fili Sanchez MD [address] [address] Internal Medicine-Endocrinology, Diabetes & Metabolism 04/11/14 documented as of this encounter
--- OUTSIDE RECORDS SUMMARY | 2024-01-18 14:56 | XMS_ITS | Encounter Summary ---
Author Organization [place] [address] Care Team Providers Care Business Technology Teacher Name Role Phone Fili Sanchez MD Unavailable [phone] Aba Espinoza MD Primary Care Provider [phone] Reason for Visit * Reason Comments Diabetes Type 2 * Consultation (Routine) - Closed Specialty Diagnoses / Procedures Referred By Kadie casillas Referred To Contact Internal Medicine-Endocrinology, Diabetes & Metabolism / Diabetes Services Diagnoses Diabetes mellitus, type 2 (HCC) dm ty 2/ 3-4 months per 02/20/21-bm Procedures DM FOLLOW UP Aba Espinoza MD [address] [place] [address] Phone: tel: fax: Fili Sanchez MD [address] [facility] [address] [place] [address] Phone: tel: fax: Referral ID Status Reason Start Date Expiration Date Visits Re quested Visits Authorized [id number] Closed 06/05/2021 06/05/2022 99 99 Encounter Details Date Type Department Care Team (Late st Contact Info) Description 11/26/2021 9:00 AM EDT [facility] [address] [facility] [address] [place] [address] Fili Sanchez MD [address] [facility] [address] [place] [address] Type 2 diabetes mellitus with [...] Sign Reading Time Taken Comments Blood Pressure 83/63 11/26/2021 8:58 AM EDT Pulse 77 11/26/2021 8:58 AM EDT Temperature - - Respiratory Rate 15 11/26/2021 8:58 AM EDT Oxygen Saturation - - Inhaled Oxygen Concentration - - Weight 115.2 kg (254 lb) 11/26/2021 8:58 AM EDT Height 185.4 cm (6' 1 ) 11/26/2021 8:58 AM EDT Body Mass Index 33.51 11/26/2021 8:58 AM EDT documented in this encounter Ordered Prescriptions Prescription Sig Dispense Quantity Refills Last Filled Start Date End Date Insulin glargine (BASAGLAR KWIKPEN U-100 INSULIN) 100 unit/mL (3 mL) SubQ Insulin Pen Subcutaneous (Inject under the skin) 10 Units every evening. 15 mL 3 11/26/2021 empagliflozin (JARDIANCE) 25 mg Oral Tablet Take 1 Tablet by mouth daily. 30 Tablet 5 11/26/2021 3 glipiZIDE (GLUCOTROL XL) 5 mg Oral Tablet Extended Rel 24 hr Take 1 Tablet by mouth daily. 90 Tablet 1 11/26/2021 2 documented in this encounter Progress Notes * Sonali Don RMA - 11/26/2021 9:00 AM EDT Pt brought meter (not uploaded) and logs to review. Pharm verified * Fili Sanchez MD - 11/26/2021 9:00 AM EDT Diabetes Associated symptoms include coughing. Dane Ray is a 71 y.o. male who presents today for follow up Diabetes Mellitus since 2003. He is here for follow up. Since the last appointment he was admitted 10/28-11/[address] [facility] and underwent multivessel bypass with Dr. Rob Higuera.Recovering well. Current diabetes regimen includes Metformin 1000 mg twice a day. Glipizide ER 5 mg a day Jardiance 25 mg a day Basaglar 10 units a day Checking 1-2x/day. Average 135 (120-180). Denies lows. NO BS less than 80 or higher than 200 Review of Systems Constitutional: Positive for appetite change. HENT: Positive for dental problem. Eyes: Negative. Respiratory: Positive for cough. Objective Vitals: 11/26/21 0858 BP: (!) 83/63 Pulse: 77 Resp: 15 Weight: 254 lb (115.2 kg) Height: 6' 1 (1.854 m) Objective: [...] ER 5 mg a day - Basaglar 10 units a day - Jardiance 25 mg [...] exam. States last exam in 2018 in [place]. Will call for report. Foot exam: 11/04 MATT/ARB:Losartan ASA: 81 mg once a day. Smoking: former smoker 2. HTN: Monitor BP at home. Follows with Cardiology. 3. Dyslipidemia: currently taking simvastatin 40 mg daily. Goal LDL of 70. At goal. 4. CAD with low EF Follow up with cardiology at [place] and at [facility] . Return in about 4 months (around 03/29/2022). documented in this encounter Plan of Treatment Upcoming Encounters Date Type Department Care Team (Late st Contact Info) Description 04/26/2024 9:00 AM EDT Office Visit [facility] Nephrology [place] [address] [place], [place] [phone] Julio Silva MD [address] [place] [address] documented as of this encounter Visit Diagnoses [...] simvastatin (ZOCOR) 40 mg Oral Tablet TAKE ONE TABLET BY MOUTH ONCE NIGHTLY Alternate therapy 09/16/2021 11/26/2021 Insulin glargine (BASAGLAR KWIKPEN U-100 INSULIN) 100 unit/mL (3 mL) SubQ Insulin Pen 18 units every day. 02/20/2021 022 glipiZIDE (GLUCOTROL XL) 5 mg Oral Tablet Extended Rel 24 hr Take 1 Tablet by mouth daily. Reorder 06/24/2021 11/26/2021 JARDIANCE 25 mg Oral Tablet TAKE ONE TABLET BY MOUTH DAILY Reorder 10/26/2021 11/26/2021 documented as of this encounter Care Teams Business Technology Teacher Relationship Specialty Start Date End Date Aba Espinoza MD [address] [place] [phone] PCP - General Family Medicine 07/27/16 Fili Sanchez MD [address] [facility] [address] [place] [address] Internal Medicine-Endocrinology, Diabetes & Metabolism 04/11/14 documented as of this encounter
--- OUTSIDE RECORDS SUMMARY | 2024-01-18 14:56 | XMS_ITS | Encounter Summary ---
Author Organization [place] [address] Care Team Providers Care Collect On Delivery Clerk Name Role Phone Fili Sanchez MD Unavailable [phone] Aba Espinoza MD Primary Care Provider [phone] Reason for Visit * Reason Comments Medication Refill Encounter Details Date Type Department Care Team (Late st Contact Info) Description 05/01/2021 Refill [facility] Physicians [facility] 1500 [facility] [address] [place] [address] Fili Sanchez MD [address] [address] Medication Refill Social History Tobacco [...] Notes * Telephone Encounter - Dane Hernandez [facility] - 05/04/2021 10:21 AM EDT Jardiance Medication refill requested too soon. Refill request denied. Refills sent on 05/04/21 with Qty: 30 and 5 refills. appraisal technician did not contact pharmacy. Patient notified via [employer] (if MyChart active). documented in this encounter Plan of Treatment Upcoming Encounters Date Type Department Care Team (Late st Contact Info) Description 04/26/2024 9:00 AM EDT Office Visit [facility] Nephrology [place] [address] [place] [address] Julio Silva MD [address] [place] [address] documented as of this encounter Visit Diagnoses Not on filedocumented in this encounter Care Teams Collect On Delivery Clerk Relationship Specialty Start Date End Date Aba Espinoza MD [address] [place] [address] [place] [phone] PCP - General Family Medicine 07/27/16 Fili Sanchez MD [address] [facility] [address] [place] [address] Internal Medicine-Endocrinology, Diabetes & Metabolism 04/11/14 documented as of this encounter
--- OUTSIDE RECORDS SUMMARY | 2024-01-18 14:56 | XMS_ITS | Encounter Summary ---
Author Organization [place] [address] Care Team Providers Care Dispatch Machine Runner Name Role Phone Fili Sanchez MD Unavailable [phone] Aba Espinoza MD Primary Care Provider [phone] Reason for Visit * Reason Comments Medication Refill Encounter Details Date Type Department Care Team (Late st Contact Info) Description 10/24/2021 Refill [facility] Physicians [facility] Diabetes [place] 1500 [facility] [address] [place] [address] Fili Sanchez MD [address] [address] Medication Refill Social History Tobacco [...] Date JARDIANCE 25 mg Oral Tablet TAKE ONE TABLET BY MOUTH DAILY 30 Tablet 10/26/2021 11/26/2021 documented in this encounter Miscellaneous Notes * Telephone Encounter - Trisha Feliz CPhT - 10/26/2021 5:07 PM EDT JARDIANCE Medication Refill Protocol passed. sales performance manager Action: Approved refills to noted follow-up date by provider or protocol if no follow-up date noted. documented in this encounter Plan of Treatment Upcoming Encounters Date Type Department Care Team (Late st Contact Info) Description 04/26/2024 9:00 AM EDT Office Visit [facility] Nephrology [place] [address] [facility] [address] [place] [address] Julio Silva MD [address] [facility] [address] [place] [address] documented as of this encounter Visit Diagnoses Not on filedocumented in this encounter Discontinued Medications Medication Sig Discontinue Reason Start Date End Da te empagliflozin (JARDIANCE) 25 mg Oral Tablet Take 1 Tablet by mouth daily. 05/04/2021 10/26/2021 documented as of this encounter Care Teams Dispatch Machine Runner Relationship Specialty Start Date End Date Aba Espinoza MD [address] [place] [address] PCP - General Family Medicine 07/27/16 Fili Sanchez MD [address] [facility] [address] [place] [address] Internal Medicine-Endocrinology, Diabetes & Metabolism 04/11/14 documented as of this encounter
--- OUTSIDE RECORDS SUMMARY | 2024-01-18 14:56 | XMS_ITS | Encounter Summary ---
Author Organization [place] [address] Care Team Providers Care Investigator Welfare Name Role Phone Fili Sanchez MD Unavailable [phone] Aba Espinoza MD Primary Care Provider [phone] Encounter Details Date Type Department Care Team (Latest Contact Info) Description 02/19/2021 10:00 AM EST - 02/19/2021 11:59 PM [facility] Hospital Encounter [facility] [address] [place] [address] Controlled type 2 diabetes mellitus [...] Blood Sugar Diagnostic (ACCU-CHEK GUIDE TEST STRIPS) Mis Strip Use to test blood sugars daily. Dx Code:E11.65 100 Strip 3 11/12/2020 escitalopram oxalate (LEXAPRO) 20 mg Oral Tablet Take by mouth daily. nitroGLYCERIN (NITROLINGUAL) 400 mcg/spray TL [place], Non-Aerosol Place 1 [place] under the tongue every 5 minutes as needed for Chest pain. rOPINIRole (REQUIP) 0.5 mg Oral Tablet Take 0.5 mg by mouth. Takes once daily at night 01/30/2021 sacubitriL-valsar misrty (ENTRESTO) 24-26 mg Oral Tablet Take 1 Tab by mouth 2 times daily. spironolactone (ALDACTONE) 25 mg Oral Tablet Take 25 mg by mouth daily. BD PATITO 2ND GEN PEN NEEDLE 32 gauge x 5/32 Misc Needle USE ONCE DAILY TO GIVE INSULIN SHOT 100 Each 2 12/30/2020 01/18/2022 Insulin glargine (BASAGLAR KWIKPEN U-100 INSULIN) 100 unit/mL (3 mL) SubQ Insulin Pen 14 units every day. 15 mL 2 06/27/2020 02/20/2021 documented as of this encounter Discharge Disposition Disposition Code Departure Means Destination Home or Self Care documented in this encounter Plan of Treatment Upcoming Encounters Date Type Department Care Team (Late st Contact Info) Description 04/26/2024 9:00 AM EDT Office Visit [facility] Nephrology [place] [address] [facility] [place] [address] Julio Silva MD [address] [facility] [address] documented as of this encounter Procedures Procedure Name Priority Date/Time Associated Diagnosis Comments MICROALBUMIN/CREATININ E RATIO URINE Routine 02/19/2021 12:08 PM EST Controlled type 2 diabetes mellitus with stage 3 chronic kidney disease, with long-term current use of insulin (HCC) LIPID PANEL REFLEX Routine 02/19/2021 10 :09 AM EST Controlled type 2 diabetes mellitus with stage 3 chronic kidney disease, with long-term current use of insulin (HCC) HEMOGLOBIN A1C Routine 02/19/2021 10:09 AM EST Controlled type 2 diabetes mellitus with stage 3 chronic kidney disease, with long-term current use of insulin (HCC) COMPREHENSIVE METABOLIC PANEL Routine 02/19/2021 10:09 AM EST Controlled type 2 diabetes mellitus with stage 3 chronic kidney disease, with long-term current use of insulin (HCC) documented in this encounter Results * MICROALBUMIN/CREATININE RATIO URINE (02/19/2021 12:08 PM EST) Urine Microalb 15.5 mg/L 02/19/2021 4:08 PM EST [facility] Urine Creatinine 102.2 mg/dL 02/19/2021 4:08 PM EST [facility] Ur Microalb/Creat 15 0 - 30 mg/g 02/19/2021 4:08 PM EST [facility] [employer] Urine 02/19/2021 12:0 8 PM EST 02/19/2021 12:08 PM EST Fili Sanchez MD URINE ORDERABLES Final R esult [facility] [address] [facility] , [place] [address] * (ABNORMAL) HEMOGLOBIN A1C (02/19/2021 10:09 AM EST) Hgb A1C 6.9(H) 4.2 - 5.6 % 02/19/2021 2:52 PM EST [facility] Est. Avg Glucose 151 mg/dL 02/19/2021 2:52 PM EST [facility] Blood Venipuncture / Unknown 02/19/2021 10:09 AM EST 02/19/2021 10:09 AM EST Narrative [facility] - 02/19/2021 2:52 PM EST REFERENCE RANGE: Normal: 4.0-5.6% Pre-diabetes: 5.7-6.4% Provisional diagnosis of diabetes: >6.4% Hgb F>10% and anything which shortens red cell survival, such as hemolytic anemia, or unstable hemoglobin variants such as HbSS, HbSC, or HbCC, will lower the HbA1c value associated with a given level of glycemic control. ? Fili Sanchez MD CHEMISTRY ORDERABLES Fin al Result [facility] [address] [facility] , [place] [address] * (ABNORMAL) COMPREHENSIVE METABOLIC PANEL (02/19/2021 10:09 AM EST) Sodium 138 136 - 145 mmol/L 02/19/2021 2:57 PM EST [facility] Potassium 4.6 3.5 - 5.0 mmol/L 02/19/2021 2:57 PM EST [facility] Chloride 100 98 - 107 mmol/L 02/19/2021 2:57 PM EST [facility] Total CO2 29 22 - 29 mmol/L 02/19/2021 2:57 PM EST [facility] Anion Gap 9 7 - 16 mmol/L 02/19/2021 2:57 PM EST [facility] Calcium 9.5 8.8 - 10.4 mg/dL 02/19/2021 2:57 PM EST [facility] Glucose Lvl 171(H) 82 - 100 mg/dL 02/19/2021 2:57 PM EST [facility] BUN 27(H) 8 - 23 mg/dL 02/19/2021 2:57 PM EST [facility] Creatinine 1.48(H) 0.67 - 1.30 mg/dL 02/19/2021 2:57 PM EST [facility] Albumin 4.3 3.2 - 4.6 gm/dL 02/19/2021 2:57 PM EST [facility] Total Protein 7.1 6.4 - 8.3 gm/dL 02/19/2021 2:57 PM EST [facility] Bili Total 0.4 0.1 - 1.4 mg/dL 02/19/2021 2:57 PM EST [facility] ALT 23 <=41 U/L 02/19/2021 2:57 PM EST [facility], [facility] AST 22 <=40 U/L 02/19/2021 2:57 PM EST [facility] Alk Phos 57 40 - 129 U/L 02/19/2021 2:57 PM EST [facility] eGFR (CKD-EPIcr 2020) 51(L) >=60 mL/min/1.7 3 m2 02/19/2021 2:57 PM EST [facility] Comment:Estimated GFR was ca lculated using the CKD-EPIcr (2020) equation refit without race. The equation is recommended by the National Kidney Foundation - [place] [employer] of Nephrology Task Force. Blood Venipuncture / Unknown 02/19/2021 10:09 AM EST 02/19/2021 10:09 AM EST Fili Sanchez MD CHEMISTRY ORDERABLES Fin al Result Performing Organization Address City/State/[facility] Co de Phone Number [facility] [address] [facility], [place] [address] [facility] [address] [place] [address] * LIPID PANEL REFLEX (02/19/2021 10:09 AM EST) Cholesterol 141 <200 mg/dL 02/19/2021 2:57 PM EST [facility] Comment: < 200 ?Desirable 200 - 239 ? Borderline High >= 240 ?High Triglyceride 118 <150 mg/dL 02/19/2021 2:57 PM EST [facility] Comment: < 150 ? Normal 150 - 199 ?Borderline High 200 - 499 ?High ??>= 500 ? Very High HDL 51 >=40 mg/dL 02/19/2021 2:57 PM EST [facility] Comment: ??> 60 ?Optimal 40 - 60 ?Acceptable ?? < 40 ?Low LDL Calculated 69 <100 mg/dL 02/19/2021 2:57 PM EST [facility] [employer] Non-HDL-C Calculated 90 <=129 mg/dL 02/19/2021 2:57 PM EST [facility] Comment: <130 ?Desirable 130-159 Above Desirable 160-189 Borderline High 190-219 High >= 220 ??Very High Fasting Specimen? Yes None 022 2:57 PM EST [facility] Blood Venipuncture / Unknown 02/19/2021 10:09 AM EST 02/19/2021 10:09 AM EST Fili Sanchez MD CHEMISTRY ORDERABLES Fin al Result [facility] [address] [facility], [place] [address] [facility] 1 [place] [address] documented in this encounter Visit Diagnoses Diagnosis Controlled type 2 diabetes mellitus with stage 3 chronic kidney disease, with long-term current use of insulin (HCC) documented in this encounter Care Teams Investigator Welfare Relationship Specialty Start Date End Date Aba Espinoza MD [address] [place] [address] PCP - General Family Medicine 07/27/16 Fili Sanchez MD [address] [facility] [address] [place] [address] Internal Medicine-Endocrinology, Diabetes & Metabolism 04/11/14 documented as of this encounter
--- OUTSIDE RECORDS SUMMARY | 2024-01-18 14:56 | XMS_ITS | Encounter Summary ---
Author Organization [place] [address] Care Team Providers Care Household Refrigerator Mechanic Name Role Phone Fili Sanchez MD Unavailable [phone] Aba Espinoza MD Primary Care Provider [phone] Encounter Details Date Type Department Care Team (Late st Contact Info) Description 12/16/2021 Orders Only [facility] Diabetes [place] 1500 [facility] [address] [place] [address] Chyna Brenner RMA Type 2 diabetes mellitus with diabetic nephropathy, [...] Date End Date flash glucose sensor (FREESTYLE THIEN 14 DAY SENSOR) Misc Kit 1 Each by [facility]Non-D rug; Combo Route) route every 14 days. 3 Kit 12/16/2021 10/19/2023 flash glucose sensor (FREESTYLE THIEN 2 SENSOR) Misc Kit 1 Each by [facility]Non-D rug; Combo Route) route every 14 days. 6 Kit 1 12/16/2021 12/18/2021 documented in this encounter Plan of Treatment Upcoming Encounters Date Type Department Care Team (Late st Contact Info) Description 04/26/2024 9:00 AM EDT Office Visit [facility] Nephrology [place] [address] [facility] [place] [address] Julio Silva MD [address] [facility] [address] [place] [address] documented as of this encounter Visit Diagnoses Diagnosis Type 2 diabetes mellitus with diabetic nephropathy, with long-term current use of insulin (HCC)- Primary documented in this encounter Discontinued Medications Medication Sig Discontinue Reason Start Date End Da te flash glucose sensor (FREESTYLE THIEN 2 SENSOR) [facility] Kit 1 Each by [facility]Non-Drug; Combo Route) route every 14 days. Reorder 08/10/2021 12/16/2021 documented as of this encounter Care Teams Household Refrigerator Mechanic Relationship Specialty Start Date End Date Aba Espinoza MD [address] [place] [address] [place] [phone] PCP - General Family Medicine 07/27/16 Fili Sanchez MD [address] [address] Internal Medicine-Endocrinology, Diabetes & Metabolism 04/11/14 documented as of this encounter
--- OUTSIDE RECORDS SUMMARY | 2024-01-18 14:56 | XMS_ITS | Encounter Summary ---
Author Organization [facility] [place] [address] Care Team Providers Care Mosaic Tile Maker Name Role Phone Fili Sanchez MD Unavailable [phone] Aba Espinoza MD Primary Care Provider [phone] Encounter Details Date Type Department Care Team (Latest Contact Info) Description 02/17/2021 Travel Social History Tobacco Use Types Packs/Day [...] Description 04/26/2024 9:00 AM EDT Office Visit [facility] Nephrology [place] [address] [facility] [place] [address] Julio Silva MD [address] [address] documented as of this encounter Visit Diagnoses Not on filedocumented in this encounter Care Teams Mosaic Tile Maker Relationship Specialty Start Date End Date [place], Aba T, MD [address] [place] [address] [place] [address] PCP - General Family Medicine 07/27/16 Fili Sanchez MD [address] [address] Internal Medicine-Endocrinology, Diabetes & Metabolism 04/11/14 documented as of this encounter
--- OUTSIDE RECORDS SUMMARY | 2024-01-18 14:56 | XMS_ITS | Encounter Summary ---
Author Organization [facility] [place] [place] [address] Care Team Providers Care Knitter Wire Mesh Name Role Phone Fili Sanchez MD Unavailable [phone] Aba Espinoza MD Primary Care Provider [phone] Reason for Visit * Reason Onset Date Comments Medication Refill 08/07/2021 Encounter Details Date Type Department Care Team (Late st Contact Info) Description 08/07/[address] [facility] [address] [facility] [address] [place], [place] [phone] Shama Roach MD [address] [place] [address] Medication Refill Social History Tobacco Use Types [...] End Date flash glucose sensor (FREESTYLE THIEN 2 SENSOR) Misc Kit 1 Each by [facility]Non-D rug; Combo Route) route every 14 days. 6 Kit 1 08/10/2021 12/16/2021 documented in this encounter Miscellaneous Notes * Telephone Encounter - Josefina Vu RMA - 08/10/2021 2:00 PM EDT Sensors sent into the pharmacy as requested * Telephone Encounter - Fili Sanchez MD - 08/10/2021 12:30 PM EDT Ok to fill the sensors * Telephone Encounter - Snow Encinas MA - 08/07/2021 4:47 PM EDT Ok to fill sensors? Pt has appointment with Dr Sanchez on 09/25/21.. * Telephone Encounter - Saida Cai - 08/07/2021 4:23 PM EDT Who is requesting the refill? self Name of medication. thien 2 sensor 30 or 90 day supply? 90 Pharmacy and Location [facility] [place] [address] [facility] [phone] How many days of medication left on hand? 0 Future Appointment: Patient has appointment with Marley on 09/25. Route to [place]. Additional Notes : documented in this encounter Plan of Treatment Upcoming Encounters Date Type Department Care Team (Late st Contact Info) Description 04/26/2024 9:00 AM EDT Office Visit [facility] Nephrology [place] [address] [place] [address] Julio Silva MD [address] [place] [address] documented as of this encounter Visit Diagnoses Not on filedocumented in this encounter Care Teams Knitter Wire Mesh Relationship Specialty Start Date End Date Aba Espinoza MD [address] [place] [address] PCP - General Family Medicine 07/27/16 Fili Sanchez MD [address] [facility] [address] [place] [address] Internal Medicine-Endocrinology, Diabetes & Metabolism 04/11/14 documented as of this encounter
--- OUTSIDE RECORDS SUMMARY | 2024-01-18 14:56 | XMS_ITS | Encounter Summary ---
Author Organization [place] [address] Care Team Providers Care Glass Forming Crew Member Name Role Phone Fili Sanchez MD Unavailable [phone] Aba Espinoza MD Primary Care Provider [phone] Reason for Visit * Reason Comments Medication Refill Encounter Details Date Type Department Care Team (Late st Contact Info) Description 09/15/2021 Refill [facility] Physicians [facility] Diabetes [place] [address] [address] Fili Sanchez MD [address] [address] Medication Refill Social History Tobacco [...] Date simvastatin (ZOCOR) 40 mg Oral Tablet TAKE ONE TABLET BY MOUTH ONCE NIGHTLY 90 Tablet 09/16/2021 2 documented in this encounter Miscellaneous Notes * Telephone Encounter - Dane Hernandez CPhT - 09/16/2021 10:29 AM EDT simvastatin Medication Refill Protocol passed. [facility] Action: Approved 90-day supply due to scheduled appointment on 10/26/21. [facility] 10/26/21 documented in this encounter Plan of Treatment Upcoming Encounters Date Type Department Care Team (Late st Contact Info) Description 04/26/2024 9:00 AM EDT Office Visit [facility] Nephrology [place] [address] [facility] [address] [place] [address] Julio Silva MD [address] [facility] [address] [place] [address] documented as of this encounter Visit Diagnoses Not on filedocumented in this encounter Care Teams Glass Forming Crew Member Relationship Specialty Start Date End Date Aba Espinoza MD [address] [place] [address] [place] [address] PCP - General Family Medicine 07/27/16 Fili Sanchez MD [address] [facility] [address] [place] [address] Internal Medicine-Endocrinology, Diabetes & Metabolism 04/11/14 documented as of this encounter
--- OUTSIDE RECORDS SUMMARY | 2024-01-18 14:57 | XMS_ITS | Encounter Summary ---
Author Organization [place] [address] Care Team Providers Care Air Hoist Operator Name Role Phone Fili Sanchez MD Unavailable Aba Espinoza MD Primary Care Provider [phone] Reason for Visit * Reason Onset Date Comments Medication Management 11/30/2019 Encounter Details Date Type Department Care Team (Late st Contact Info) Description 11/30/2019 Telephone [facility] 1500 [facility] [address] [place] [address] Fili Sanchez MD 1500 [facility] [address] [place] [address] Medication Management Social History Tobacco Use Types Packs/Day Years [...] have Coronavirus / COVID-19? No / Unsure 11/19/2019 11:20 AM EDT documented as of this encounter Miscellaneous Notes * Telephone Encounter - Sonali Don RMA - 11/30/2019 12:32 PM EDT Pt made aware that meds were discontinued. * Telephone Encounter - Fili Sanchez MD - 11/30/2019 12:10 PM EDT Ok to discontinue those medications. * Telephone Encounter - Sonali Don RMA - 11/30/2019 11:17 AM EDT Will route to Dr. Sanchez to advise. These meds are older scripts in his history and it appears theywere reordered at last OV. Pt states his Entresto contains Valsartan as mentioned by his furnace worker. He has not been taking Protonix either. Will see if okay to discontinue this meds. * Telephone Encounter - Penelope Chaudhary - 11/30/2019 10:28 AM EDT Patient called with questions regarding the script he received for Losartan 25mg and Pantoprazole 40 mg. Patient states they did not discuss taking this medication at his appointment and would like someone to call him back regarding this. documented in this encounter Plan of Treatment Upcoming Encounters Date Type Department Care Team (Late st Contact Info) Description 04/26/2024 9:00 AM EDT Office Visit [facility] Nephrology [place] [address] [place] [address] Julio Silva MD [address] [place] [address] documented as of this encounter Visit Diagnoses Not on filedocumented in this encounter Discontinued Medications Medication Sig Discontinue Reason Start Date End Da te losartan (COZAAR) 25 mg Oral Tablet Take 1 Tab by mouth daily. Alternate therapy 11/19/2019 11/30/2019 pantoprazole (PROTONIX) 40 mg Oral Tablet, Delayed Release (E.C.) Take 1 Tab by mouth daily. DELETE-Therapy completed 11/19/2019 11/30/2019 documented as of this encounter Care Teams Air Hoist Operator Relationship Specialty Start Date End Date Aba Espinoza MD [address] [place] [address] PCP - General Family Medicine 07/27/16 Fili Sanchez MD [address] [facility] [address] [place] [address] Internal Medicine-Endocrinology, Diabetes & Metabolism 04/11/14 documented as of this encounter
--- OUTSIDE RECORDS SUMMARY | 2024-01-18 14:57 | XMS_ITS | Encounter Summary ---
Author Organization [place] [address] Care Team Providers Care Manager Audio Name Role Phone Fili Sanchez MD Unavailable [phone] Aba Espinoza MD Primary Care Provider [phone] Reason for Visit * Reason Comments Diabetes * Consultation (Routine) - Closed Specialty Diagnoses / Procedures Referred By Kadie casillas Referred To Contact Internal Medicine-Endocrinology, Diabetes & Metabolism / Diabetes Services Diagnoses DM TYPE 2 Aba Espinoza MD [address] [place] [facility] [address] [place] [address] Phone: tel: fax: Fili Sanchez MD [address] [place] [phone] Phone: tel: fax: Referral ID Status Reason Start Date Expiration Date Visits Re quested Visits Authorized [id number] Closed 02/22/2019 02/22/2020 99 99 Encounter Details Date Type Department Care Team (Late st Contact Info) Description 11/19/2019 11:40 AM EDT [facility] [place] [address] [place] [phone] Fili Sanchez MD [address] [place] [phone] Uncontrolled diabetes mellitus with stage 3 chronic kidney disease, without long-term current use of insulin (HCC) (Primary Dx); Dyslipidemia; Hypertension associated with diabetes (HCC) (HCC); Essential hypertension Social History Tobacco Use Types Packs/Day Years [...] Sign Reading Time Taken Comments Blood Pressure 113/72 11/19/2019 11:47 AM EDT Pulse 71 11/19/2019 11:47 AM EDT Temperature - - Respiratory Rate 16 11/19/2019 11:47 AM EDT Oxygen Saturation - - Inhaled Oxygen Concentration - - Weight 96.2 kg (212 lb) 11/19/2019 11:47 AM EDT Height 185.4 cm (6' 1 ) 11/19/2019 11:47 AM EDT Body Mass Index 27.97 11/19/2019 11:47 AM EDT documented in this encounter Ordered Prescriptions Prescription Sig Dispense Quantity Refills Last Filled Start Date End Date pantoprazole (PROTONIX) 40 mg Oral Tablet, Delayed Release (E.C.) Take 1 Tab by mouth daily. 30 Tab 10 11/19/2019 0 losartan (COZAAR) 25 mg Oral Tablet Take 1 Tab by mouth daily. 90 Tab 2 11/19/2019 0 Lancets Misc Misc FastCLIX Lancets - use to test BS 2 x daily. E11.65 200 Each 1 11/19/2019 1 documented in this encounter Progress Notes * Janee Simon RMA - 11/19/2019 11:40 AM EDT Patient tests every other day Refills pending Pharmacy verified * Fili Sanchez MD - 11/19/2019 11:40 AM EDT Diabetes Associated symptoms include arthralgias. Dane Ray is a 69 y.o. male who presents today for follow up Diabetes Mellitus since 2003. He is here for follow up. Current diabetes regimen includes Metformin 1000 mg twice a day. Glipizide 5-5 mg twice a day. Januvia 100 mg a day. Feels sugars are coming down some. Meter downloaded and reviewed. Checking 1- 2x/day. Average 146 (107-191). Denies lows. Lowest BS was 87. 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 Following with cardiology at [facility] and goes to [facility] every 6 months. States he is eligible for LVAD but symptoms are stable so holding off. May eventually need transplant. He quit smoking. Review of Systems Eyes: Negative. Respiratory: Positive for shortness of breath (on exertion. Follows with [facility] and localcardiologist.). Musculoskeletal: Positive for arthralgias. Objective Vitals: 11/19/19 1147 BP: 113/72 Pulse: 71 Resp: 16 Weight: 212 lb (96.2 kg) Height: 6' 1 (1.854 m) Objective: [...] Laboratory: Lab Results Component Value Date HGBA1C 7.6 (H) 11/15/2019 Lab Results Component Value Date CREATININE 1.34 (H) 11/15/2019 No results found for: TSHREFLEX Lab Results Component Value Date ALT 22 11/15/2019 AST 20 11/15/2019 ALKPHOS 52 11/15/2019 Lab Results Component Value Date URINEMICROAL <12.0 11/15/2019 Lab Results Component Value Date CHOLESTEROL 131 11/15/2019 Lab Results Component Value Date HDL 36 (L) 11/15/2019 Lab Results Component Value Date LDLCALC 62 06/11/2019 Lab Results Component Value Date TRIG 187 (H) 11/15/2019 No results found for: CHOLHDL Assessment and Plan: 1. Diabetes Mellitus Type 2 UnControlled Plan: -Continue metformin and januvia. -Glipizide to one tab twice a day. Check BS -3 times a day and send BS logs in one week. -Hypoglycemic symptoms, prevention and treatment discussed in detail. - Advised to keep glucose tab and hard candy with him all the time -unable to use actos due to HF. -Discussed Jardiance though does not want to consider because of the cost issues. -check fingerstick 2 times a day.Diabetes Health Maintance: Eye exam: Advised yearly eye exam. States last exam in 2018 in [place]. Will call for report. Foot exam: 12/03 Micro-albumin: positive 03/2018 MATT/ARB:Losartan ASA: 81 mg once a day. Smoking: former smoker Obesity: 2. HTN: Monitor BP and discuss syncope episodes with his content writer. 3. Dyslipidemia: currently taking simvastatin 40 mg daily. Goal LDL of 70. At goal. 4. CAD with low EF Follow up with cardiology at [place] and at [facility] . documented in this encounter Plan of Treatment Upcoming Encounters Date Type Department Care Team (Late st Contact Info) Description 04/26/2024 9:00 AM EDT Office Visit [facility] Nephrology [place] [address] [place] [address] Julio Silva MD [address] [place] [address] documented as of this encounter Visit Diagnoses Diagnosis Uncontrolled diabetes mellitus with stage 3 chronic kidney disease, without long-term current use of insulin- Primary Dyslipidemia Other and unspecified hyperlipidemia Hypertension associated with diabetes (HCC) Type II or unspecified type diabetes mellitus with other specified manifestations, not stated as uncontrolled Essential hypertension Unspecified essential hypertension documented in this encounter Discontinued Medications Medication Sig Discontinue Reason Start Date End Da te pantoprazole (PROTONIX) 40 mg Oral Tablet, Delayed Release (E.C.) Take 1 Tab by mouth daily. Reorder 08/26/2015 11/19/2019 losartan (COZAAR) 25 mg Oral Tablet TAKE ONE TABLET BY MOUTH DAILY Reorder 09/02/2015 11/19/2019 Lancets Misc Misc FastCLIX Lancets - use to test BS 2 x daily. E11.65 Reorder 04/07/2018 11/19/2019 documented as of this encounter Care Teams Manager Audio Relationship Specialty Start Date End Date Aba Espinoza MD [address] [place] [address] [place] [address] PCP - General Family Medicine 07/27/16 Fili Sanchez MD [address] [facility] [address] [place] [address] Internal Medicine-Endocrinology, Diabetes & Metabolism 04/11/14 documented as of this encounter
--- OUTSIDE RECORDS SUMMARY | 2024-01-18 14:57 | XMS_ITS | Encounter Summary ---
Author Organization [facility] [place] [address] Care Team Providers Care Entry Level Buyer Name Role Phone Fili Sanchez MD Unavailable [phone] Aba Espinoza MD Primary Care Provider [phone] Encounter Details Date Type Department Care Team (Latest Contact Info) Description 11/06/2020 Travel Social History Tobacco Use Types Packs/Day [...] have Coronavirus / COVID-19? No / Unsure 11/06/2020 9:32 AM EDT documented as of this encounter Plan of Treatment Upcoming Encounters Date Type Department Care Team (Late st Contact Info) Description 04/26/2024 9:00 AM EDT Office Visit [facility] Nephrology [place] [address] [place] [address] Julio Silva MD [address] [place], [place] [phone] documented as of this encounter Visit Diagnoses Not on filedocumented in this encounter Care Teams Entry Level Buyer Relationship Specialty Start Date End Date Aba Espinoza MD [address] [place] [address] [place] [address] PCP - General Family Medicine 07/27/16 Fili Sanchez MD [address] [facility] [address] [place] [phone] Internal Medicine-Endocrinology, Diabetes & Metabolism 04/11/14 documented as of this encounter
--- OUTSIDE RECORDS SUMMARY | 2024-01-18 14:57 | XMS_ITS | Encounter Summary ---
Author Organization [place] [address] Care Team Providers Care Product Analyst Name Role Phone Fili Sanchez MD Unavailable [phone] Aba Espinoza MD Primary Care Provider [phone] Encounter Details Date Type Department Care Team (Latest Contact Info) Description 11/05/2020 11:20 AM EDT - 11/05/2020 11:59 PM EDT Hospital Encounter [facility] [address] [place] [address] Uncontrolled diabetes mellitus with stage 3 chronic kidney disease, without long-term current use of insulin (HCC) Discharge [...] have Coronavirus / COVID-19? No / Unsure 11/05/2020 11:15 AM EDT documented as of this encounter Medications at Time of Discharge allopurinoL (ZYLOPRIM) 100 mg Oral Tablet 100 mg daily. TAKES IN EVENING 06/22/2019 aspirin (ASPIRIN) 81 mg Oral Tablet, Chewable Take 1 Tab by mouth daily. 30 Tab 0 04/11/2014 escitalopram oxalate (LEXAPRO) 20 mg Oral Tablet Take by mouth daily. nitroGLYCERIN (NITROLINGUAL) 400 mcg/spray TL [place], Non-Aerosol Place 1 [place] under the tongue every 5 minutes as needed for Chest pain. sacubitriL-valsar mistry (ENTRESTO) 24-26 mg Oral Tablet Take 1 Tab by mouth 2 times daily. spironolactone (ALDACTONE) 25 mg Oral Tablet Take 25 mg by mouth daily. glipiZIDE (GLUCOTROL) 5 mg Oral Tablet Extended Rel 24 hr Take 1 Tab by mouth daily. 90 Tab 1 06/27/2020 12/11/2020 Insulin glargine (BASAGLAR KWIKPEN U-100 INSULIN) 100 unit/mL (3 mL) SubQ Insulin Pen 14 units every day. 15 mL 2 06/27/2020 02/20/2021 Insulin Pinch, Disposable, (PATITO PEN NEEDLE) 32 gauge x 5/32 Misc Needle Use one time daily to give insulin shot. 1 box 11 03/24/2020 12/30/2020 documented as of this encounter Discharge Disposition Disposition Code Departure Means Destination Home or Self Care documented in this encounter Plan of Treatment Upcoming Encounters Date Type Department Care Team (Late st Contact Info) Description 04/26/2024 9:00 AM EDT Office Visit [facility] Nephrology [place] [address] [facility] [address] Julio Silva MD [address] [place] [address] documented as of this encounter Procedures Procedure Name Priority Date/Time Associated Diagnosis Comments MICROALBUMIN/CREATININ E RATIO URINE Routine 11/05/2020 11:54 AM EDT Uncontrolled diabetes mellitus with stage 3 chronic kidney disease, without long-term current use of insulin (HCC) LIPID PANEL REFLEX Routine 11/05/2020 11 :36 AM EDT Uncontrolled diabetes mellitus with stage 3 chronic kidney disease, without long-term current use of insulin (HCC) HEMOGLOBIN A1C Routine 11/05/2020 11:36 AM EDT Uncontrolled diabetes mellitus with stage 3 chronic kidney disease, without long-term current use of insulin (HCC) COMPREHENSIVE METABOLIC PANEL Routine 11/05/2020 11:36 AM EDT Uncontrolled diabetes mellitus with stage 3 chronic kidney disease, without long-term current use of insulin (HCC) documented in this encounter Results * MICROALBUMIN/CREATININE RATIO URINE (11/05/2020 11:54 AM EDT) Urine Microalb 16.3 mg/L 11/05/2020 2:58 PM EDT [facility] Urine Creatinine 107.7 mg/dL 11/05/2020 2:58 PM EDT [facility] [employer] Ur Microalb/Creat 15 0 - 30 mg/g 11/05/2020 2:58 PM EDT [facility] [employer] Urine 11/05/2020 11:5 4 AM EDT 11/05/2020 11:54 AM EDT Fili Sanchez MD URINE ORDERABLES Final R esult [facility] [address] [facility] , [address] [place] [id number] * (ABNORMAL) HEMOGLOBIN A1C (11/05/2020 11:36 AM EDT) Hgb A1C 6.3(H) 4.2 - 5.6 % 11/05/2020 2:37 PM EDT [facility] [employer] Est. Avg Glucose 134 mg/dL 11/05/2020 2:37 PM EDT [employer] [employer] Blood Venipuncture / Unknown 11/05/2020 11:36 AM EDT 11/05/2020 11:36 AM EDT Narrative [facility] - 11/05/2020 2:37 PM EDT REFERENCE RANGE: Normal: 4.0-5.6% Pre-diabetes: 5.7-6.4% Provisional diagnosis of diabetes: >6.4% Hgb F>10% and anything which shortens red cell survival, such as hemolytic anemia, or unstable hemoglobin variants such as HbSS, HbSC, or HbCC, will lower the HbA1c value associated with a given level of glycemic control. ? Fili Sanchez MD CHEMISTRY ORDERABLES [facility] al Result [facility] [address] [facility] , [address] [place] [id number] * (ABNORMAL) COMPREHENSIVE METABOLIC PANEL (11/05/2020 11:36 AM EDT) Sodium 140 136 - 145 mmol/L 11/05/2020 3:04 PM EDT [facility] Potassium 5.1(H) 3.5 - 5.0 mmol/L 11/05/2020 3:04 PM EDT [facility] Chloride 105 98 - 107 mmol/L 11/05/2020 3:04 PM EDT [facility] Total CO2 26 22 - 29 mmol/L 11/05/2020 3:04 PM EDT [facility] Anion Gap 9 7 - 16 mmol/L 11/05/2020 3:04 PM EDT [facility] Calcium 9.5 8.8 - 10.4 mg/dL 11/05/2020 3:04 PM EDT [facility] Glucose Lvl 125(H) 82 - 100 mg/dL 11/05/2020 3:04 PM EDT [facility] BUN 26(H) 8 - 23 mg/dL 11/05/2020 3:04 PM EDT [facility] Creatinine 1.41(H) 0.67 - 1.30 mg/dL 11/05/2020 3:04 PM EDT [facility] Albumin 4.5 3.2 - 4.6 gm/dL 11/05/2020 3:04 PM EDT [facility] Total Protein 7.0 6.4 - 8.3 gm/dL 11/05/2020 3:04 PM EDT [facility] Bili Total 0.3 0.1 - 1.4 mg/dL 11/05/2020 3:04 PM EDT [facility] ALT 14 <=41 U/L 11/05/2020 3:04 PM EDT [facility] AST 14 <=40 U/L 11/05/2020 3:04 PM EDT [facility] Alk Phos 54 40 - 129 U/L 11/05/2020 3:04 PM EDT [facility] GFR Afr Am 58(L) >=60 mL/min/1.7 3 m2 11/05/2020 3:04 PM EDT [facility] GFR Non Afr Am 50(L) >=60 mL/min/1.7 3 m2 11/05/2020 3:04 PM EDT [facility] Comment: This estimated GFR was calculated using CKD-EPI equation which is modified based on ethnicity for Non Americans and Americans. Both results are reported since it is not always possible to determine the patient's ethnicity. This equation should only be used for individuals 18 and older. It has not been validated for use with the elderly (>70 years), women, or in some racial or ethnic subgroups, such as Hispanics. The equation will be less accurate in people with differences in nutritional status or muscle mass. Blood Venipuncture / Unknown 11/05/2020 11:36 AM EDT 11/05/2020 11:36 AM EDT Fili Sanchez MD CHEMISTRY ORDERABLES Fin al Result [facility] [address] [facility], [place] [address] [facility] [address] [place] [address] * LIPID PANEL REFLEX (11/05/2020 11:36 AM EDT) [facility] Cholesterol 123 <200 mg/dL 11/05/2020 3:04 PM EDT [facility] Comment: < 200 ?Desirable 200 - 239 ? Borderline High >= 240 ?High Triglyceride 72 <150 mg/dL 11/05/2020 3:04 PM EDT [facility] [employer] Comment: < 150 ? Normal 150 - 199 ?Borderline High 200 - 499 ?High ??>= 500 ? Very High HDL 59 >=40 mg/dL 11/05/2020 3:04 PM EDT [facility] [employer] Comment: ??> 60 ?Optimal 40 - 60 ?Acceptable ?? < 40 ?Low LDL Calculated 49 <100 mg/dL 11/05/2020 3:04 PM EDT [facility] [place] Non-HDL-C Calculated 64 <=129 mg/dL 11/05/2020 3:04 PM EDT [facility] [employer] Comment: <130 ?Desirable 130-159 Above Desirable 160-189 Borderline High 190-219 High >= 220 ??Very High Fasting Specimen? Yes None 021 3:04 PM EDT [facility] Blood Venipuncture / Unknown 11/05/2020 11:36 AM EDT 11/05/2020 11:36 AM EDT Fili Sanchez MD CHEMISTRY ORDERABLES Fin al Result Performing Organization Address City/State/[facility] Co de Phone Number [facility] [employer] [address] [facility] , [place] [address] [facility] [address] [place] [address] documented in this encounter Visit Diagnoses Diagnosis Uncontrolled diabetes mellitus with stage 3 chronic kidney disease, without long-term current use of insulin documented in this encounter Care Teams Product Analyst Relationship Specialty Start Date End Date Aba Espinoza MD [address] [place] [address] [place] [address] PCP - General Family Medicine 07/27/16 Fili Sanchez MD [address] [place] [phone] Internal Medicine-Endocrinology, Diabetes & Metabolism 04/11/14 documented as of this encounter
--- OUTSIDE RECORDS SUMMARY | 2024-01-18 14:57 | XMS_ITS | Encounter Summary ---
Author Organization [place] [address] Care Team Providers Care Shopper Insights Manager Name Role Phone Fili Sanchez MD Unavailable [phone] Aba Espinoza MD Primary Care Provider [phone] Reason for Visit * Reason Comments Diabetes [...] [address] [place] [address] Phone: tel: fax: Fili Sanchez MD [address] [facility] [address] [place] [phone] Phone: tel: fax: Referral ID Status Reason Start Date Expiration Date Visits Re quested Visits Authorized [id number] Closed 03/24/2020 03/24/2021 99 99 Encounter Details Date Type Department Care Team (Late st Contact Info) Description 11/06/2020 9:40 AM EDT [facility] [address] [place] [address] Fili Sanchez MD [address] [facility] [address] [place] [address] Controlled type 2 diabetes mellitus with stage 3 chronic kidney disease, with long-term current use of insulin (HCC) (Primary Dx); Dyslipidemia; Essential hypertension Social History Tobacco Use Types [...] Sign Reading Time Taken Comments Blood Pressure 110/68 11/06/2020 9:48 AM EDT Pulse 74 11/06/2020 9:48 AM EDT Temperature - - Respiratory Rate 16 11/06/2020 9:48 AM EDT Oxygen Saturation - - Inhaled Oxygen Concentration - - Weight 120.7 kg (266 lb) 11/06/2020 9:48 AM EDT Height 185.4 cm (6' 1 ) 11/06/2020 9:48 AM EDT Body Mass Index 35.09 11/06/2020 9:48 AM EDT documented in this encounter Ordered Prescriptions Prescription Sig Dispense Quantity Refills Last Filled Start Date End Date empagliflozin (JARDIANCE) 25 mg Oral Tablet Take 1 Tablet by mouth daily. 30 Tablet 4 11/06/2020 05/04/2021 documented in this encounter Progress Notes * Sonali Don, KRISTOPHER - 11/06/2020 9:40 AM EDT [facility] brand meter - tests BS once daily Pharm verified * Fili Sanchez MD - 11/06/2020 9:40 AM EDT Diabetes Associated symptoms include arthralgias. Dane Ray is a 70 y.o. male who presents today for follow up Diabetes Mellitus since 2003. He is here for follow up. Current diabetes regimen includes Metformin 1000 mg twice a day. Glipizide ER 5 mg a day Januvia 100 mg a day. Checking 1-2x/day. Average 146 (107-191). Denies lows. Lowest BS was 87. 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 Following with cardiology at [facility] and goes to [facility] every 6 months. States he is eligible for LVAD but symptoms are stable so holding off. May eventually need transplant. He quit smoking. Review of Systems Eyes: Negative. Musculoskeletal: Positive for arthralgias. Objective Vitals: 11/06/20 0948 BP: 110/68 Pulse: 74 Resp: 16 Weight: 266 lb (120.7 kg) [...] Laboratory: Lab Results Component Value Date HGBA1C 6.3 (H) 11/05/2020 Lab Results Component Value Date CREATININE 1.41 (H) 11/05/2020 No results found for: TSHREFLEX Lab Results Component Value Date ALT 14 11/05/2020 AST 14 11/05/2020 ALKPHOS 54 11/05/2020 Lab Results Component Value Date URINEMICROAL 16.3 11/05/2020 Lab Results Component Value Date CHOLESTEROL 123 11/05/2020 Lab Results Component Value Date HDL 59 11/05/2020 Lab Results Component Value Date LDLCALC 49 11/05/2020 Lab Results Component Value Date TRIG 72 11/05/2020 No results found for: CHOLHDL Assessment and Plan: 1. Diabetes Mellitus Type 2 UnControlled Plan: -Continue metformin -Glipizide ER 5 mg a day - Basaglar 10 units a day -Discontinue Januvia - Start Jardiance 25 mg a day. Discussed side effects of SGLT2 inhibitors including, but not limited to, increased urination, urinary infections, genital yeast infections, and orthostatic hypotension. Benefits include improved glucose control and mild reductions in weight and systolic blood pressure. Patient verbalized understanding. - Call if BS less than 80 -Hypoglycemic symptoms, prevention and treatment discussed in detail. - Advised to keep glucose tab and hard candy with him all the time -unable to use actos due to HF. -check fingerstick 2 times a day.Diabetes Health Maintance: Eye exam: Advised yearly eye exam. States last exam in 2018 in [place]. Will call for report. Foot exam: 11/04 MATT/ARB:Losartan ASA: 81 mg once a day. Smoking: former smoker 2. HTN: Monitor BP at home. 3. Dyslipidemia: currently taking simvastatin 40 mg daily. Goal LDL of 70. At goal. 4. CAD with low EF Follow up with cardiology at [place] and at [facility] . Return for 3-4 months . documented in this encounter Miscellaneous Notes * Patient Instructions - Fili Sanchez MD - 11/06/2020 9:40 AM EDT Discontinue Januvia. Start Jardiance 25 mg a day. Decrease Basaglar to 10 units a day. Check BS 2-3 times a day for one week Call if any BS less than 80 documented in this encounter Plan of Treatment Upcoming Encounters Date Type Department Care Team (Late st Contact Info) Description 04/26/2024 9:00 AM EDT Office Visit [facility] Nephrology [place] [address] [place] [address] Julio Silva MD [address] [place] [address] documented as of this encounter Visit Diagnoses Diagnosis Controlled type 2 diabetes mellitus with stage 3 chronic kidney disease, with long-term current use of insulin (HCC)- Primary Dyslipidemia Other and unspecified hyperlipidemia Essential hypertension Unspecified essential hypertension documented in this encounter Discontinued Medications Medication Sig Discontinue Reason Start Date End Da te SITagliptin (JANUVIA) 100 mg Oral Tablet Take 1 Tab by mouth daily. Alternate therapy 07/24/2020 11/06/2020 fUROsemide (LASIX) 40 mg Oral Tablet Take 40 mg by mouth daily. Alternate therapy 11/06/2020 torsemide (DEMADEX) 20 mg Oral TabletIndications:Unco ntrolled type 2 diabetes mellitus without complication, without long-term current use of insulin Take 20 mg by mouth daily. Takes 1/2 Pill Alternate therapy 03/02/2017 11/06/2020 POTASSIUM (POTASSIMIN ORAL) Take by mouth. Takes 10 meq once daily Alternate therapy 11/06/2020 magnesium oxide (MAG-OX) 400 mg (241.3 mg magnesium) Oral Tablet Take 400 mg by mouth daily. DELETE-Therapy completed 11/06/2020 Lancets [facility] FastCLIX Lancets - use to test BS 2 x daily. E11.65 DELETE-Therapy completed 11/19/2019 11/06/2020 ACCU-CHEK GUIDE [facility] Strip 1 Each by [facility].(Non-Drug; Combo Route) route 2 times daily. E11.65 Alternate therapy 02/22/2019 11/06/2020 carvediloL (COREG) 6.25 mg Oral Tablet Alternate therapy 04/26/2020 11/06/2020 documented as of this encounter Care Teams Shopper Insights Manager Relationship Specialty Start Date End Date Aba Espinoza MD [address] [place] [address] [place] [phone] PCP - General Family Medicine 07/27/16 Fili Sanchez MD [address] [address] Internal Medicine-Endocrinology, Diabetes & Metabolism 04/11/14 documented as of this encounter
--- OUTSIDE RECORDS SUMMARY | 2024-01-18 14:57 | XMS_ITS | Encounter Summary ---
Author Organization [facility] [place] [address] Care Team Providers Care Etl Tester Name Role Phone Fili Sanchez MD Unavailable [phone] Aba Espinoza MD Primary Care Provider [phone] Reason for Visit * Reason Onset Date Comments Results 06/27/2020 Encounter Details Date Type Department Care Team (Late st Contact Info) Description 06/27/2020 [facility]phone [facility] 1500 [facility] [address] [place] [address] Fili Sanchez MD 1500 [facility] [address] [place] [phone] Results Social History Tobacco Use Types [...] have Coronavirus / COVID-19? No / Unsure 06/27/2020 8:00 AM EDT documented as of this encounter Miscellaneous Notes * Telephone Encounter - Abril Milton LPN - 06/27/2020 1:01 PM EDT Patient notified of results and recommendations. Patient verbalized understanding. * Telephone Encounter - Abril Milton LPN - 06/27/2020 12:59 PM EDT ----- Message from Fili Sanchez MD sent at 06/27/2020 12:32 PM EDT ----- Hba1c is much improved at 7.5%. Cholesterol is at goal except high triglycerides. -Avoid foods and drinks with a lot of sugar and carbohydrates - These include white bread, fruit juice, soda, and sweets. - Avoid red meat, butter, fried foods, cheese, oils Creatinine is stable and improved as compared to before. Rest of the blood tests are normal. documented in this encounter Plan of Treatment Upcoming Encounters Date Type Department Care Team (Late st Contact Info) Description 04/26/2024 9:00 AM EDT Office Visit [facility] Nephrology [place] [address] [place] [address] Julio Silva MD [address] [place] [address] documented as of this encounter Visit Diagnoses Not on filedocumented in this encounter Care Teams Etl Tester Relationship Specialty Start Date End Date Aba Espinoza MD [address] [place] [address] [place] [phone] PCP - General Family Medicine 07/27/16 Fili Sanchez MD [address] [phone] Internal Medicine-Endocrinology, Diabetes & Metabolism 04/11/14 documented as of this encounter
--- OUTSIDE RECORDS SUMMARY | 2024-01-18 14:57 | XMS_ITS | Encounter Summary ---
Author Organization [facility] [place] [address] Care Team Providers Care Inspector Firearms Name Role Phone Fili Sanchez MD Unavailable [phone] Aba Espinoza MD Primary Care Provider + [phone] Encounter Details Date Type Department Care Team (Latest Contact Info) Description 11/19/2019 Travel Social History Tobacco Use Types Packs/Day [...] 9:00 AM EDT Office Visit [facility] Nephrology [place] [address] [place] [address] Julio Silva MD [address] [place] [address] documented as of this encounter Visit Diagnoses Not on filedocumented in this encounter Care Teams Inspector Firearms Relationship Specialty Start Date End Date Aba Espionza MD [address] [place] [address] PCP - General Family Medicine 07/27/16 Fili Sanchez MD [address] [facility] [address] [place] [address] Internal Medicine-Endocrinology, Diabetes & Metabolism 04/11/14 documented as of this encounter
--- OUTSIDE RECORDS SUMMARY | 2024-01-18 14:57 | XMS_ITS | Encounter Summary ---
Author Organization [place] [address] Care Team Providers Care Watch Band Assembler Name Role Phone Fili Sanchez MD Unavailable [phone] Aba Espinoza MD Primary Care Provider [phone] Encounter Details Date Type Department Care Team (Latest Contact Info) Description 03/21/2020 10:15 AM EST - 03/21/2020 11:59 PM EST Hospital Encounter [facility] [address] [place] [address] Uncontrolled diabetes mellitus with stage [...] have Coronavirus / COVID-19? No / Unsure 03/21/2020 10:13 AM EST documented as of this encounter Medications at Time of Discharge allopurinoL (ZYLOPRIM) 100 mg Oral Tablet 100 mg daily. TAKES IN EVENING 06/22/2019 aspirin (ASPIRIN) 81 mg Oral Tablet, Chewable Take 1 Tab by mouth daily. 30 Tab 0 04/11/2014 escitalopram oxalate (LEXAPRO) 20 mg Oral Tablet Take by mouth daily. nitroGLYCERIN (NITROLINGUAL) 400 mcg/spray TL [place], Non-Aerosol Place 1 [place] under the tongue every 5 minutes as needed for Chest pain. sacubitriL-valsar mistry (ENTRESTO) 24-26 mg Oral Tablet Take 1 Tab by mouth 2 times daily. spironolactone (ALDACTONE) 25 mg Oral Tablet Take 25 mg by mouth daily. metFORMIN (GLUCOPHAGE) 1,000 mg Oral Tablet TAKE 1 TABLET TWICE A DAY 180 Tab 3 06/04/2019 08/05/2020 simvastatin (ZOCOR) 40 mg Oral Tablet TAKE 1 TABLET NIGHTLY 90 Tab 3 06/04/2019 09/05/2020 documented as of this encounter Discharge Disposition Disposition Code Departure Means Destination Home or Self Care documented in this encounter Plan of Treatment Upcoming Encounters Date Type Department Care Team (Late st Contact Info) Description 04/26/2024 9:00 AM EDT Office Visit [facility] Nephrology [place] [address] [place] [address] Julio Silva MD [address] [address] documented as of this encounter Procedures Procedure Name Priority Date/Time Associated Diagnosis Comments LIPID PANEL REFLEX Routine 03/21/2020 10 :21 AM EST Uncontrolled diabetes mellitus with stage 3 chronic kidney disease, without long-term current use of insulin (HCC) HEMOGLOBIN A1C Routine 03/21/2020 10:21 AM EST Uncontrolled diabetes mellitus with stage 3 chronic kidney disease, without long-term current use of insulin (HCC) COMPREHENSIVE METABOLIC PANEL Routine 03/21/2020 10:21 AM EST Uncontrolled diabetes mellitus with stage 3 chronic kidney disease, without long-term current use of insulin (HCC) documented in this encounter Results * (ABNORMAL) COMPREHENSIVE METABOLIC PANEL (03/21/2020 10:21 AM EST) Sodium 139 136 - 145 mmol/L 03/21/2020 4:31 PM EST [facility] Potassium 4.8 3.5 - 5.0 mmol/L 03/21/2020 4:31 PM EST [facility] Chloride 101 98 - 107 mmol/L 03/21/2020 4:31 PM EST [facility] Total CO2 28 22 - 29 mmol/L 03/21/2020 4:31 PM EST [facility] Anion Gap 10 7 - 16 mmol/L 03/21/2020 4:31 PM EST [facility] Calcium 9.5 8.8 - 10.4 mg/dL 03/21/2020 4:31 PM EST [facility] Glucose Lvl 182(H) 82 - 100 mg/dL 03/21/2020 4:31 PM EST [facility] BUN 26(H) 8 - 23 mg/dL 03/21/2020 4:31 PM EST [facility] Creatinine 1.61(H) 0.67 - 1.30 mg/dL 03/21/2020 4:31 PM EST [facility] Albumin 4.5 3.2 - 4.6 gm/dL 03/21/2020 4:31 PM EST [facility] Total Protein 7.0 6.4 - 8.3 gm/dL 03/21/2020 4:31 PM EST [facility] Bili Total 0.4 0.1 - 1.4 mg/dL 03/21/2020 4:31 PM EST [facility] ALT 21 <=41 U/L 03/21/2020 4:31 PM EST [facility] AST 17 <=40 U/L 03/21/2020 4:31 PM EST [facility] Alk Phos 57 40 - 129 U/L 03/21/2020 4:31 PM EST [facility] GFR Afr Am 50(L) >=60 mL/min/1.7 3 m2 03/21/2020 4:31 PM EST [facility] GFR Non Afr Am 43(L) >=60 mL/min/1.7 3 m2 03/21/2020 4:31 PM EST [facility] Comment: This estimated GFR was calculated [...] or muscle mass. Blood Venipuncture / Unknown 03/21/2020 10:21 AM EST 03/21/2020 10:21 AM EST Fili Sanchez MD CHEMISTRY ORDERABLES Fin al Result [facility] [address], [place] [address] [facility] [address] [place] [address] * (ABNORMAL) HEMOGLOBIN A1C (03/21/2020 10:21 AM EST) Hgb A1C 8.2(H) 4.2 - 5.6 % 03/21/2020 3:44 PM EST [email or web address] Est. Avg Glucose 189 mg/dL 03/21/2020 3:44 PM EST [facility] Blood Venipuncture / Unknown 03/21/2020 10:21 AM EST 03/21/2020 10:21 AM EST Narrative [email or web address] - 03/21/2020 3:44 PM EST REFERENCE RANGE: Normal: 4.0-5.6% Pre-diabetes: 5.7-6.4% Provisional diagnosis of diabetes: >6.4% Hgb F>10% and anything which shortens red cell survival, such as hemolytic anemia, or unstable hemoglobin variants such as HbSS, HbSC, or HbCC, will lower the HbA1c value associated with a given level of glycemic control. ? Fili Sanchez MD CHEMISTRY ORDERABLES Fin al Result Performing Organization Address City/[facility]/ZIP Co de Phone Number [facility] [address] [place] [address] * LIPID PANEL REFLEX (03/21/2020 10:21 AM EST) Cholesterol 122 <200 mg/dL 03/21/2020 4:31 PM EST [facility] Comment: < 200 ?Desirable 200 - 239 ? Borderline High >= 240 ?High Triglyceride 140 <150 mg/dL 03/21/2020 4:31 PM EST [email or web address] Comment: < 150 ? Normal 150 - 199 ?Borderline High 200 - 499 ?High ??>= 500 ? Very High HDL 43 >=40 mg/dL 03/21/2020 4:31 PM EST [email or web address] Comment: ??> 60 ?Optimal 40 - 60 ?Acceptable ?? < 40 ?Low LDL Calculated 51 <100 mg/dL 03/21/2020 4:31 PM EST [email or web address] Non-HDL-C Calculated 79 <=129 mg/dL 03/21/2020 4:31 PM EST [email or web address] Comment: <130 ?Desirable 130-159 Above Desirable 160-189 Borderline High 190-219 High >= 220 ??Very High Fasting Specimen? Yes None 021 4:31 PM EST [facility] Blood Venipuncture / Unknown 03/21/2020 10:21 AM EST 03/21/2020 10:21 AM EST Fili Sanchez MD CHEMISTRY ORDERABLES Fin al Result Performing Organization Address City/[facility]/ZIP Co de Phone Number [facility] [address] [facility] [address] [place] [address] documented in this encounter Visit Diagnoses Diagnosis Uncontrolled diabetes mellitus with stage 3 chronic kidney disease, without long-term current use of insulin documented in this encounter Care Teams Watch Band Assembler Relationship Specialty Start Date End Date Aba Espinoza MD [address] [place] [phone] PCP - General Family Medicine 07/27/16 Fili Sanchez MD [address] [address] Internal Medicine-Endocrinology, Diabetes & Metabolism 04/11/14 documented as of this encounter
--- OUTSIDE RECORDS SUMMARY | 2024-01-18 14:57 | XMS_ITS | Encounter Summary ---
Author Organization [facility] [place] [address] Care Team Providers Care Tub Chucker Name Role Phone Fili Sanchez MD Unavailable [phone] bAa Espinoza MD Primary Care Provider [phone] Encounter Details Date Type Department Care Team (Latest Contact Info) Description 03/24/2020 Travel Social History Tobacco Use Types Packs/Day [...] have Coronavirus / COVID-19? No / Unsure 03/24/2020 10:31 AM EST documented as of this encounter Plan of Treatment Upcoming Encounters Date Type Department Care Team (Late st Contact Info) Description 04/26/2024 9:00 AM EDT Office Visit [facility] Nephrology [place] [address] [facility] [place] [address] Julio Silva MD [address] [place] [address] documented as of this encounter Visit Diagnoses Not on filedocumented in this encounter Care Teams Tub Chucker Relationship Specialty Start Date End Date Aba Espinoza MD [address] [place] [address] PCP - General Family Medicine 07/27/16 Fili Sanchez MD [address] [facility] [address] [place] [address] Internal Medicine-Endocrinology, Diabetes & Metabolism 04/11/14 documented as of this encounter
--- OUTSIDE RECORDS SUMMARY | 2024-01-18 14:57 | XMS_ITS | Encounter Summary ---
Author Organization [place] [address] Care Team Providers Care Manager Of Global Name Role Phone Fili Sanchez MD Unavailable [phone] Aba Espinoza MD Primary Care Provider [phone] Reason for Visit * Reason Onset Date Comments Medication Refill 06/05/2020 Encounter Details Date Type Department Care Team (Late st Contact Info) Description 06/05/2020 [facility] 1500 [facility] [address] [place] [address] Fili Sanchez MD [address] [address] Medication Refill Social History Tobacco [...] AM EDT Office Visit [facility] Nephrology [place] [address] [place] [address] Julio Silva MD [address] [place] [address] documented as of this encounter Visit Diagnoses Not on filedocumented in this encounter Care Teams Manager Of Global Relationship Specialty Start Date End Date Aba Espinoza MD [address] [place] [phone] PCP - General Family Medicine 07/27/16 Fili Sanchez MD [address] [facility] [address] [place] [address] Internal Medicine-Endocrinology, Diabetes & Metabolism 04/11/14 documented as of this encounter
--- OUTSIDE RECORDS SUMMARY | 2024-01-18 14:57 | XMS_ITS | Encounter Summary ---
Author Organization [place] [address] Care Team Providers Care Surgical Corsetier Name Role Phone Fili Sanchez MD Unavailable [phone] Aba Espinoza MD Primary Care Provider [phone] Reason for Visit * Reason Comments Medication Refill Encounter Details Date Type Department Care Team (Late st Contact Info) Description 09/05/2020 Refill [facility] Physicians [facility] Diabetes [place] 1500 [facility] [address] [place] [address] Fili Sanchez MD [address] [address] Medication Refill Social History Tobacco [...] TAKE 1 TABLET NIGHTLY 90 Tab 3 09/05/2020 2 documented in this encounter Plan of Treatment Upcoming Encounters Date Type Department Care Team (Late st Contact Info) Description 04/26/2024 9:00 AM EDT Office Visit [facility] Nephrology [place] [address] [place] [address] Julio Silva MD [address] [place] [address] documented as of this encounter Visit Diagnoses Not on filedocumented in this encounter Discontinued Medications Medication Sig Discontinue Reason Start Date End Da te simvastatin (ZOCOR) 40 mg Oral Tablet TAKE 1 TABLET NIGHTLY 06/04/2019 09/05/2020 documented as of this encounter Care Teams Surgical Corsetier Relationship Specialty Start Date End Date Aba Espinoza MD [address] [place] [phone] PCP - General Family Medicine 07/27/16 Fili Sanchez MD [address] [facility] [address] [place] [address] Internal Medicine-Endocrinology, Diabetes & Metabolism 04/11/14 documented as of this encounter
--- OUTSIDE RECORDS SUMMARY | 2024-01-18 14:57 | XMS_ITS | Encounter Summary ---
Author Organization [facility] [place] [address] Care Team Providers Care Shank Carrier Name Role Phone Fili Sanchez MD Unavailable [phone] Aba Espinoza MD Primary Care Provider [phone] Encounter Details Date Type Department Care Team (Latest Contact Info) Description 06/27/2020 Travel Social History Tobacco Use Types Packs/Day [...] Description 04/26/2024 9:00 AM EDT Office Visit [facility] Nephrology [place] [address] [place] [address] Julio Silva MD [address] [place], [place] [phone] documented as of this encounter Visit Diagnoses Not on filedocumented in this encounter Care Teams Shank Carrier Relationship Specialty Start Date End Date Aba Espinoza MD [address] [place] [address] [place] [address] PCP - General Family Medicine 07/27/16 Fili Sanchez MD [address] [facility] [address] [place] [address] Internal Medicine-Endocrinology, Diabetes & Metabolism 04/11/14 documented as of this encounter
--- OUTSIDE RECORDS SUMMARY | 2024-01-18 14:57 | XMS_ITS | Encounter Summary ---
Author Organization [facility] [place] [address] Care Team Providers Care Electric Motor Fitter Name Role Phone Fili Sanchez MD Unavailable [phone] Aba Espinoza MD Primary Care Provider [phone] Encounter Details Date Type Department Care Team (Latest Contact Info) Description 03/21/2020 Travel Social History Tobacco Use Types Packs/Day [...] Description 04/26/2024 9:00 AM EDT Office Visit [facility] Nephrology [place] [address] [facility] [place] [address] Julio Silva MD [address] [place] [address] documented as of this encounter Visit Diagnoses Not on filedocumented in this encounter Care Teams Electric Motor Fitter Relationship Specialty Start Date End Date Aba Espinoza MD [address] [place] [address] [place] [address] PCP - General Family Medicine 07/27/16 Fili Sanchez MD [address] [facility] [address] [place] [address] Internal Medicine-Endocrinology, Diabetes & Metabolism 04/11/14 documented as of this encounter
--- OUTSIDE RECORDS SUMMARY | 2024-01-18 14:57 | XMS_ITS | Encounter Summary ---
Author Organization [place] [address] Care Team Providers Care Paint Stock Clerk Name Role Phone Fili Sanchez MD Unavailable [phone] Aba Espinoza MD Primary Care Provider [phone] Encounter Details Date Type Department Care Team (Late st Contact Info) Description 10/15/2020 Orders Only [facility] Diabetes [place] 1500 [facility] [address] [place] [address] Fili Sanchez MD 1500 [facility] [address] [place] [address] Uncontrolled diabetes mellitus with stage 3 [...] 04/26/2024 9:00 AM EDT Office Visit [facility] Nephrology [place] [address] [place] [address] Julio Silva MD [address] [address] documented as of this encounter Results * MICROALBUMIN/CREATININE RATIO URINE (11/05/2020 11:54 AM EDT) Urine Microalb 16.3 mg/L 11/05/2020 2:58 PM EDT [email or web address] Urine Creatinine 107.7 mg/dL 11/05/2020 2:58 PM EDT [facility] Ur Microalb/Creat 15 0 - 30 mg/g 11/05/2020 2:58 PM EDT [email or web address] Urine 11/05/2020 11:5 4 AM EDT 11/05/2020 11:54 AM EDT Fili Sanchez MD URINE ORDERABLES Final R esult [email or web address] [address] [facility] , [address] [place] [id number] * (ABNORMAL) HEMOGLOBIN A1C (11/05/2020 11:36 AM EDT) Hgb A1C 6.3(H) 4.2 - 5.6 % 11/05/2020 2:37 PM EDT [facility] Est. Avg Glucose 134 mg/dL 11/05/2020 2:37 PM EDT [email or web address] Blood Venipuncture / Unknown 11/05/2020 11:36 AM EDT 11/05/2020 11:36 AM EDT Narrative [email or web address] - 11/05/2020 2:37 PM EDT REFERENCE RANGE: [...] al Result [facility] [address] [facility] , [place] [address] * (ABNORMAL) COMPREHENSIVE METABOLIC PANEL (11/05/2020 11:36 [...] - 8.3 gm/dL 11/05/2020 3:04 PM EDT [facility] Bili Total 0.3 0.1 - 1.4 mg/dL 11/05/2020 3:04 PM EDT [facility] ALT 14 <=41 U/L 11/05/2020 3:04 PM EDT [facility] AST 14 <=40 U/L 11/05/2020 3:04 PM EDT [facility] Alk Phos 54 40 - 129 U/L 11/05/2020 3:04 PM EDT [facility] GFR Afr Am 58(L) >=60 mL/min/1.7 3 m2 11/05/2020 3:04 PM EDT [facility] GFR Non Afr Am 50(L) >=60 mL/min/1.7 3 m2 11/05/2020 3:04 PM EDT [facility] Comment: This estimated GFR was calculated [...] Sanchez MD CHEMISTRY ORDERABLES Fin al Result [facility] [address] [facility] , [address] [place] [id number] [facility] [address] [place] [address] * LIPID PANEL REFLEX (11/05/2020 11:36 AM EDT) [facility] Cholesterol 123 <200 mg/dL 11/05/2020 3:04 PM EDT [facility] Comment: < 200 ?Desirable 200 - 239 ? Borderline High >= 240 ?High Triglyceride 72 <150 mg/dL 11/05/2020 3:04 PM EDT [email or web address] Comment: < 150 ? Normal 150 - 199 ?Borderline High 200 - 499 ?High ??>= 500 ? Very High HDL 59 >=40 mg/dL 11/05/2020 3:04 PM EDT [email or web address] Comment: ??> 60 ?Optimal 40 - 60 ?Acceptable ?? < 40 ?Low LDL Calculated 49 <100 mg/dL 11/05/2020 3:04 PM EDT [email or web address] Non-HDL-C Calculated 64 <=129 mg/dL 11/05/2020 3:04 PM EDT [email or web address] Comment: <130 ?Desirable 130-159 Above Desirable 160-189 Borderline High 190-219 High >= 220 ??Very High Fasting Specimen? Yes None 021 3:04 PM EDT [facility] Blood Venipuncture / Unknown 11/05/2020 11:36 AM EDT 11/05/2020 11:36 AM EDT Fili Sanchez MD CHEMISTRY ORDERABLES Fin al Result [email or web address] 1 [facility], [place] [address] [facility] 1 [place] [address] documented in this encounter Visit Diagnoses Diagnosis Uncontrolled diabetes mellitus with stage 3 chronic kidney disease, without long-term current use of insulin- Primary documented in this encounter Care Teams Paint Stock Clerk Relationship Specialty Start Date End Date Aba Espinoza MD [address] [place] [address] [place] [address] PCP - General Family Medicine 07/27/16 Fili Sanchez MD [address] [facility] [address] [place] [phone] Internal Medicine-Endocrinology, Diabetes & Metabolism 04/11/14 documented as of this encounter
--- OUTSIDE RECORDS SUMMARY | 2024-01-18 14:57 | XMS_ITS | Encounter Summary ---
Author Organization [place] [address] Care Team Providers Care Nuclear Physics Professor Name Role Phone Fili Sanhcez MD Unavailable [phone] Aba Espinoza MD Primary Care Provider [phone] Reason for Visit * Reason Comments Diabetes * Consultation (Routine) - Closed Specialty Diagnoses / Procedures Referred By Kadie casillas Referred To Contact Internal Medicine-Endocrinology , Diabetes & Metabolism / Diabetes Services Diagnoses Type 2 diabetes mellitus without complications (HCC) dm ty 2/ 4 months per 11/19/19 Procedures DM FOLLOW UP Aba Espinoza MD [address] [place] [address] Phone: tel: fax: Fili Sanchez MD [address] [facility] [address] [place] [address] Phone: tel: fax: Referral ID Status Reason Start Date Expiration Date Visits Re quested Visits Authorized [id number] Closed 03/24/2020 03/24/2021 99 99 Encounter Details Date Type Department Care Team (Late st Contact Info) Description 06/27/2020 8:20 AM EDT [facility] [place] [address] [facility] [address] [place] [phone] Fili Sanchez MD [address] [facility] [address] [place] [phone] Uncontrolled diabetes mellitus with stage 3 [...] Sign Reading Time Taken Comments Blood Pressure 103/64 06/27/2020 8:20 AM EDT Pulse 77 06/27/2020 8:20 AM EDT Temperature - - Respiratory Rate 15 06/27/2020 8:20 AM EDT Oxygen Saturation - - Inhaled Oxygen Concentration - - Weight 121.1 kg (267 lb) 06/27/2020 8:20 AM EDT Height 185.4 cm (6' 1 ) 06/27/2020 8:20 AM EDT Body Mass Index 35.23 06/27/2020 8:20 AM EDT documented in this encounter Ordered Prescriptions Prescription Sig Dispense Quantity Refills Last Filled Start Date End Date glipiZIDE (GLUCOTROL) 5 mg Oral Tablet Extended Rel 24 hr Take 1 Tab by mouth daily. 90 Tab 1 06/27/2020 12/11/2020 Insulin glargine (BASAGLAR KWIKPEN U-100 INSULIN) 100 unit/mL (3 mL) SubQ Insulin Pen 14 units every day. 15 mL 2 06/27/2020 02/20/2021 documented in this encounter Progress Notes * Nina Yun RN - 06/27/2020 8:20 AM EDT Provide low snack information for evening snacks and proper treatment hypoglycemia. RVVO Dr. Sanchez/Caron Yun RN, [facility]. Report provided to Susan Hardy RD, [facility] * Susan Hardy RD - 06/27/2020 8:20 AM EDT Met with patient for less than 15 minutes. Instructed on hypoglycemia prevention, detection, treatment with 15 grams of fast acting carbohydrate for blood sugar below 70, treat with 30 grams of fast acting carbohydrate if blood sugar is below 50. Retest blood sugar in 15 minutes, if below 70 retreat. Follow-up hypoglycemia episodes with a meal or snack. Reviewed appropriate snacks options. Recommended patient pair a protein with a carbohydrate to aid in stabilizing blood sugars. Provided patient with handouts on concepts reviewed. Patient verbalized good understanding. * Fili Sanchez MD - 06/27/2020 8:20 AM EDT Diabetes Associated symptoms include arthralgias. [...] EF of 10%. Following with cardiology at [facility] and goes to [facility] every 6 months. States he is eligible for LVAD but symptoms are stable so holding off. May eventually need transplant. He quit smoking. Review of Systems Eyes: Negative. Musculoskeletal: Positive for arthralgias. Objective Vitals: 06/27/20 0820 BP: 103/64 Pulse: 77 Resp: 15 Weight: 267 lb (121.1 kg) Height: 6' 1 (1.854 m) Objective: [...] Results Component Value Date HGBA1C 8.2 (H) 03/21/2020 Lab Results Component Value Date CREATININE 1.61 (H) 03/21/2020 No results found for: TSHREFLEX Lab Results Component Value Date ALT 21 03/21/2020 AST 17 03/21/2020 ALKPHOS 57 03/21/2020 Lab Results Component Value Date URINEMICROAL <12.0 11/15/2019 Lab Results Component Value Date CHOLESTEROL 122 03/21/2020 Lab Results Component Value Date HDL 43 03/21/2020 Lab Results Component Value Date LDLCALC 51 03/21/2020 Lab Results Component Value Date TRIG 140 03/21/2020 No results found for: CHOLHDL Assessment and Plan: 1. Diabetes Mellitus Type 2 UnControlled Plan: -Continue metformin and januvia. -Glipizide ER 5 mg a day - Basaglar 12 units a day - Send BS logs in 2 weeks. -Hypoglycemic symptoms, prevention and treatment discussed in detail. - Advised to keep glucose tab and hard candy with him all the time -unable to use actos due to HF. -Discussed Jardiance though does not want to consider because of the cost issues. -check fingerstick 2 times a day.Diabetes Health Maintance: Eye exam: Advised yearly eye exam. States last exam in 2018 in [place]. Will call for report. Foot exam: 12/03 Micro-albumin: positive 03/2018 MATT/ARB:Losartan ASA: 81 mg once a day. Smoking: former smoker Obesity: 2. HTN: Monitor BP and discuss syncope episodes with his wood room hand. 3. Dyslipidemia: currently taking simvastatin 40 mg daily. Goal LDL of 70. At goal. 4. CAD with low EF Follow up with cardiology at [place] and at [facility] . Return in about 4 months (around 10/28/2020). Patient Instructions Basaglar 12 units at bedtime. If AM BS still above 150 in the morning consistently, increase basaglar to 14 units at bedtime. Glipizide ER 5 mg with breakfast. You can use Glipizide (previous tab) 1/2 tab with breakfast and 1/2 tab with supper. documented in this encounter Miscellaneous Notes * Patient Instructions - Fili Sanchez MD - 06/27/2020 8:20 AM EDT Basaglar 12 units at bedtime. If AM BS still above 150 in the morning consistently, increase basaglar to 14 units at bedtime. Glipizide ER 5 mg with breakfast. You can use Glipizide (previous tab) 1/2 tab with breakfast and 1/2 tab with supper. documented in this encounter Plan of Treatment Upcoming Encounters Date Type Department Care Team (Late st Contact Info) Description 04/26/2024 9:00 AM EDT Office Visit [facility] Nephrology [place] [address] [facility] [place] [address] Julio Silva MD [address] [facility] [place] [address] documented as of this encounter Visit Diagnoses Diagnosis Uncontrolled diabetes mellitus with stage 3 chronic kidney disease, without long-term current use of insulin- Primary Dyslipidemia Other and unspecified hyperlipidemia Essential hypertension Unspecified essential hypertension documented in this encounter Discontinued Medications Medication Sig Discontinue Reason Start Date End Da te glipiZIDE (GLUCOTROL) 5 mg Oral Tablet TAKE 1 TABLET AT BREAKFAST AND TAKE 1 AND 1/2 TABLETS AT SUPPER (NEW DOSE) Alternate therapy 06/05/2020 06/27/2020 Insulin glargine (BASAGLAR KWIKPEN U-100 INSULIN) 100 unit/mL (3 mL) SubQ Insulin Pen 4 units every day. Increase 2 units per week till AM BS less than 130. Max dose upto 20 units. 03/24/2020 06/27/2020 documented as of this encounter Historical Medications * This list may reflect changes made after this encounter. Medication Sig Dispense Quantity Refills Last Filled Start D ate End Date carvediloL (COREG) 6.25 mg Oral Tablet 04/26/202011/06 added in this encounter Care Teams Nuclear Physics Professor Relationship Specialty Start Date End Date Aba Espinoza MD [address] [place] [phone] PCP - General Family Medicine 07/27/16 Fili Sanchez MD [address] [facility] [address] [place] [address] Internal Medicine-Endocrinology, Diabetes & Metabolism 04/11/14 documented as of this encounter
--- OUTSIDE RECORDS SUMMARY | 2024-01-18 14:57 | XMS_ITS | Encounter Summary ---
Author Organization [place] [address] Care Team Providers Care Application Integration Engineer Name Role Phone Fili Sanchez MD Unavailable [phone] Aba Espinoza MD Primary Care Provider [phone] Reason for Visit * Reason Comments Medication Refill Encounter Details Date Type Department Care Team (Late st Contact Info) Description 02/27/2020 Refill [facility] Physicians [facility] Diabetes [place] 1500 [facility] [address] [place] [phone] Fili Sanchez MD [address] [phone] Medication Refill Social History Tobacco [...] Refills Last Filled Start Date End Date JANUVIA 100 mg Oral Tablet TAKE 1 TABLET BY MOUTH DAILY. 90 Tab 2 02/27/2020 07/24/2020 documented in this encounter Plan of Treatment Upcoming Encounters Date Type Department Care Team (Late st Contact Info) Description 04/26/2024 9:00 AM EDT Office Visit [facility] Nephrology [place] [address] [place] [address] Julio Silva MD [address] [place] [address] documented as of this encounter Visit Diagnoses Not on filedocumented in this encounter Discontinued Medications Medication Sig Discontinue Reason Start Date End Da te JANUVIA 100 mg Oral Tablet TAKE 1 TABLET BY MOUTH DAILY. 08/02/2019 02/27/2020 documented as of this encounter Care Teams Application Integration Engineer Relationship Specialty Start Date End Date Aba Espinoza MD [address] [place] [address] PCP - General Family Medicine 07/27/16 Fili Sanchez MD [address] [facility] [address] [place] [address] Internal Medicine-Endocrinology, Diabetes & Metabolism 04/11/14 documented as of this encounter
--- OUTSIDE RECORDS SUMMARY | 2024-01-18 14:57 | XMS_ITS | Encounter Summary ---
Author Organization [place] [address] Care Team Providers Care Auto Technician Mechanic Name Role Phone Fili Sanchez MD Unavailable [phone] Aba Espinoza MD Primary Care Provider [phone] Reason for Visit * Reason Onset Date Comments Medication Refill 07/24/2020 Encounter Details Date Type Department Care Team (Late st Contact Info) Description 07/24/[address] [facility] [address] [facility] [address] [place] [phone] Fili Sanchez MD 1500 [facility] [address] [place] [phone] Medication Refill Social History Tobacco Use [...] Refills Last Filled Start Date End Date SITagliptin (JANUVIA) 100 mg Oral Tablet Take 1 Tab by mouth daily. 90 Tab 2 07/24/2020 11/06/2020 documented in this encounter Miscellaneous Notes * Telephone Encounter - Mae Heck - 07/24/2020 11:05 AM EDT Who is requesting the refill? Patient Name of medication. Januvia 100mg 30 or 90 day supply? 90 Pharmacy and Location [id number] [place] [address] [address] [facility] - [phone] How many days of medication left on hand? out Future appt date w/ prescribing provider 10/23/20 Additional Notes : Currently in [place], needs 90 day supply, will be there for a while documented in this encounter Plan of Treatment Upcoming Encounters Date Type Department Care Team (Late st Contact Info) Description 04/26/2024 9:00 AM EDT Office Visit [facility] Nephrology [place] [address] [facility] [place] [address] Julio Silva MD [address] [place] [address] documented as of this encounter Visit Diagnoses Not on filedocumented in this encounter Discontinued Medications Medication Sig Discontinue Reason Start Date End Da te JANUVIA 100 mg Oral Tablet TAKE 1 TABLET BY MOUTH DAILY. Reorder 02/27/2020 07/24/2020 documented as of this encounter Care Teams Auto Technician Mechanic Relationship Specialty Start Date End Date Aba Espinoza MD [address] [place] [address] PCP - General Family Medicine 07/27/16 Fili Sanchez MD [address] [address] Internal Medicine-Endocrinology, Diabetes & Metabolism 04/11/14 documented as of this encounter
--- OUTSIDE RECORDS SUMMARY | 2024-01-18 14:57 | XMS_ITS | Encounter Summary ---
Author Organization [place] [address] Care Team Providers Care Appliance Worker Name Role Phone Fili Sanchez MD Unavailable [phone] Aba Espinoza MD Primary Care Provider [phone] Encounter Details Date Type Department Care Team (Late st Contact Info) Description 03/19/2020 Orders Only [place] Physicians [facility] Diabetes [place] [address] [facility] [address] [place] [phone] Fili Sanchez MD 1500 [facility] [address] [place] [phone] Uncontrolled diabetes mellitus with stage 3 [...] Nephrology [place] [address] [place] [address] Julio Silva MD [address] [place] [address] documented as of this encounter Results * [...] U/L 03/21/2020 4:31 PM EST [facility] Alk Phos 57 40 - 129 U/L 03/21/2020 4:31 PM EST [facility] GFR Afr Am 50(L) >=60 mL/min/1.7 3 m2 03/21/2020 4:31 PM EST [facility] GFR Non Afr Am 43(L) >=60 mL/min/1.7 3 m2 03/21/2020 4:31 PM EST [facility] Comment: This estimated GFR was [...] CHEMISTRY ORDERABLES Fin al Result [facility], [place] [address] [facility] [address] [place] [address] * (ABNORMAL) HEMOGLOBIN A1C (03/21/2020 10:21 AM EST) [facility] Hgb A1C 8.2(H) 4.2 - 5.6 % 03/21/2020 3:44 PM EST [facility] Est. Avg Glucose 189 mg/dL 03/21/2020 3:44 PM EST [facility] Blood Venipuncture / Unknown 03/21/2020 10:21 AM EST 03/21/2020 10:21 AM EST Narrative [facility]REF[facility] - 03/21/2020 3:44 PM EST REFERENCE RANGE: Normal: 4.0-5.6% Pre-diabetes: 5.7-6.4% Provisional diagnosis of diabetes: >6.4% Hgb F>10% and anything which shortens red cell survival, such as hemolytic anemia, or unstable hemoglobin variants such as HbSS, HbSC, or HbCC, will lower the HbA1c value associated with a given level of glycemic control. ? Fili Sanchez MD CHEMISTRY ORDERABLES Fin al Result [facility] [address] [facility] [place] [address] * LIPID PANEL REFLEX (03/21/2020 10:21 AM EST) Cholesterol 122 <200 mg/dL 03/21/2020 4:31 PM EST [facility] Comment: < 200 ?Desirable 200 - 239 ? Borderline High >= 240 ?High Triglyceride 140 <150 mg/dL 03/21/2020 4:31 PM EST [facility] Comment: < 150 ? Normal 150 - 199 ?Borderline High 200 - 499 ?High ??>= 500 ? Very High HDL 43 >=40 mg/dL 03/21/2020 4:31 PM EST [facility] Comment: ??> 60 ?Optimal 40 - 60 ?Acceptable ?? < 40 ?Low LDL Calculated 51 <100 mg/dL 03/21/2020 4:31 PM EST [facility] Non-HDL-C Calculated 79 <=129 mg/dL 03/21/2020 4:31 PM EST [facility] Comment: <130 ?Desirable 130-159 Above Desirable 160-189 Borderline High 190-219 High >= 220 ??Very High Fasting Specimen? Yes None 021 4:31 PM EST [facility] Blood Venipuncture / Unknown 03/21/2020 10:21 AM EST 03/21/2020 10:21 AM EST Fili Sanchez MD CHEMISTRY ORDERABLES Fin al Result [facility] [address] [facility] , [place] [address] documented in this encounter Visit Diagnoses Diagnosis Uncontrolled diabetes mellitus with stage 3 chronic kidney disease, without long-term current use of insulin- Primary documented in this encounter Care Teams Appliance Worker Relationship Specialty Start Date End Date Aba Espinoza MD [address] [place] [address] PCP - General Family Medicine 07/27/16 Fili Sanchez MD [address] [facility] [address] [place] [address] Internal Medicine-Endocrinology, Diabetes & Metabolism 04/11/14 documented as of this encounter
--- OUTSIDE RECORDS SUMMARY | 2024-01-18 14:57 | XMS_ITS | Encounter Summary ---
Author Organization [place] [address] Care Team Providers Care Manager Balance Name Role Phone Fili Sanchez MD Unavailable [phone] Aba Espinoza MD Primary Care Provider [phone] Reason for Visit * Reason Comments Medication Refill Encounter Details Date Type Department Care Team (Late st Contact Info) Description 12/11/2020 Refill [facility] Physicians [facility] Diabetes [place] 1500 [facility] [address] [place] [phone] Fili Sanchez MD [address] [phone] Medication Refill Social History Tobacco [...] Rel 24 hr TAKE 1 TABLET DAILY 90 Tablet 1 12/11/2020 06/24/2021 documented in this encounter Plan of Treatment Upcoming Encounters Date Type Department Care Team (Late st Contact Info) Description 04/26/2024 9:00 AM EDT Office Visit [facility] Nephrology [place] [address] [place] [address] Julio Silva MD [address] [place] [address] documented as of this encounter Visit Diagnoses Not on filedocumented in this encounter Discontinued Medications Medication Sig Discontinue Reason Start Date End Da te glipiZIDE (GLUCOTROL) 5 mg Oral Tablet Extended Rel 24 hr Take 1 Tab by mouth daily. 06/27/2020 12/11/2020 documented as of this encounter Care Teams Manager Balance Relationship Specialty Start Date End Date Aba Espinoza MD [address] [facility] [place] [address] PCP - General Family Medicine 07/27/16 Fili Sanchez MD [address] [facility] [address] [place] [address] Internal Medicine-Endocrinology, Diabetes & Metabolism 04/11/14 documented as of this encounter
--- OUTSIDE RECORDS SUMMARY | 2024-01-18 14:57 | XMS_ITS | Encounter Summary ---
Author Organization [facility] [address] Care Team Providers Care Lip Of Shank Cutter Name Role Phone Fili Sanchez MD Unavailable [phone] Aba Espinoza MD Primary Care Provider [phone] Encounter Details Date Type Department Care Team (Latest Contact Info) Description 11/01/2020 Travel Social History Tobacco Use Types Packs/Day [...] have Coronavirus / COVID-19? No / Unsure 11/01/2020 9:50 PM EDT documented as of this encounter Plan of Treatment Upcoming Encounters Date Type Department Care Team (Late st Contact Info) Description 04/26/2024 9:00 AM EDT Office Visit [facility] Nephrology [place] [address] [place] [address] Julio Silva MD [address] [place], [place] [address] documented as of this encounter Visit Diagnoses Not on filedocumented in this encounter Care Teams Lip Of Shank Cutter Relationship Specialty Start Date End Date Aba Espinoza MD [address] [place] [address] PCP - General Family Medicine 07/27/16 Fili Sanchez MD [address] [facility] [address] [place] [address] Internal Medicine-Endocrinology, Diabetes & Metabolism 04/11/14 documented as of this encounter
--- OUTSIDE RECORDS SUMMARY | 2024-01-18 14:57 | XMS_ITS | Encounter Summary ---
Author Organization [place] [address] Care Team Providers Care Safety Physician Name Role Phone Fili Sanchez MD Unavailable [phone] Aba Espinoza MD Primary Care Provider [phone] Reason for Visit * Reason Comments Medication Refill Encounter Details Date Type Department Care Team (Late st Contact Info) Description 08/05/2020 Refill [facility] Physicians [facility] Diabetes [place] [address] [facility] [address] [place] [phone] Fili Sanchez MD [address] [phone] Medication Refill Social History Tobacco [...] TABLET TWICE A DAY 180 Tab 3 08/05/2020 08/05/2021 documented in this encounter Plan of Treatment Upcoming Encounters Date Type Department Care Team (Late st Contact Info) Description 04/26/2024 9:00 AM EDT Office Visit [facility] Nephrology [place] [address] [place] [address] Julio Silva MD [address] [place] [address] documented as of this encounter Visit Diagnoses Not on filedocumented in this encounter Discontinued Medications Medication Sig Discontinue Reason Start Date End Da te metFORMIN (GLUCOPHAGE) 1,000 mg Oral Tablet TAKE 1 TABLET TWICE A DAY 06/04/2019 08/05/2020 documented as of this encounter Care Teams Safety Physician Relationship Specialty Start Date End Date Aba Espinoza MD [address] [place] [address] PCP - General Family Medicine 07/27/16 Fili Sanchez MD [address] [phone] Internal Medicine-Endocrinology, Diabetes & Metabolism 04/11/14 documented as of this encounter
--- OUTSIDE RECORDS SUMMARY | 2024-01-18 14:57 | XMS_ITS | Encounter Summary ---
Author Organization [place] [address] Care Team Providers Care Casino Floor Supervisor Name Role Phone Fili Sanchez MD Unavailable [phone] Aba Espinoza MD Primary Care Provider [phone] Reason for Visit * Reason Comments Diabetes [...] [address] [place] [address] Phone: tel: fax: Fili Sanchez MD [address] [facility] [address] [place] [address] Phone: tel: fax: Referral ID Status Reason Start Date Expiration Date Visits Re quested Visits Authorized [id number] Closed 03/24/2020 03/24/2021 99 99 Encounter Details Date Type Department Care Team (Late st Contact Info) Description 03/24/2020 10:40 AM EST [facility] [place] [address] [facility] [address] [place] [phone] Fili Sanchez MD [address] [facility] [address] [place] [address] Uncontrolled diabetes mellitus with stage [...] Sign Reading Time Taken Comments Blood Pressure 101/73 03/24/2020 10:58 AM EST Pulse 75 03/24/2020 10:58 AM EST Temperature - - Respiratory Rate 16 03/24/2020 10:58 AM EST Oxygen Saturation - - Inhaled Oxygen Concentration - - Weight 124.7 kg (275 lb) 03/24/2020 10:58 AM EST Height 185.4 cm (6' 1 ) 03/24/2020 10:58 AM EST Body Mass Index 36.28 03/24/2020 10:58 AM EST documented in this encounter Ordered Prescriptions Prescription Sig Dispense Quantity Refills Last Filled Start Date End Date Insulin [place], Disposable, (PATITO PEN NEEDLE) 32 gauge x 5/32 Misc Needle Use one time daily to give insulin shot. 1 box 11 03/24/2020 Insulin glargine (BASAGLAR KWIKPEN U-100 INSULIN) 100 unit/mL (3 mL) SubQ Insulin Pen 4 units every day. Increase 2 units per week till AM BS less than 130. Max dose upto 20 units. 15 mL 2 03/24/2020 documented in this encounter Progress Notes * Fili Sanchez MD - 03/24/2020 10:40 AM EST Diabetes Associated symptoms include [...] EF of 10%. Following with cardiology at [facility] and goes to [facility] every 6 months. States he is eligible for LVAD but symptoms are stable so holding off. May eventually need transplant. He quit smoking. Review of Systems Eyes: Negative. Respiratory: Positive for shortness of breath (on exertion. Follows [facility] and localcardiologist.). Musculoskeletal: Positive for arthralgias. Objective Vitals: 03/24/20 1058 BP: 101/73 Pulse: 75 Resp: 16 Weight: 275 lb (124.7 kg) Height: 6' 1 (1.854 m) Objective: [...] -Glipizide to one tab twice a day. - Add Basaglar 4 units at bedtime. Increase 2 units every week till AM Less than 130 - Send BS logs in 2 weeks. [...] exam. States last exam in 2018 in [place]. Will call for report. Foot exam: 12/03 Micro-albumin: positive 03/2018 MATT/ARB:Losartan ASA: 81 mg once a day. Smoking: former smoker Obesity: 2. 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 3. Dyslipidemia: currently taking simvastatin 40 mg daily. Goal LDL of 70. At goal. 4. CAD with low EF Follow up with cardiology at [place] and at [facility] . Return for 3-4 MONTHS. * Sariah Samaniego RD,LD - 03/24/2020 10:[address] [facility] EDU/PROGRESS NOTE Start Time: 11:47 am End Time: 12:19 pm Total time spent with patient: 32 minutes Intervention: Per Dr. Sanchez's request, met with pt for basal insulin start. Instructed patient to take 4 units of Basaglar insulin at bedtime, increasing by 2 units every 7 days until fasting morning blood sugarsare consistently less than 130 mg/dl. Instructed patient to stop increasing dose if fasting morningblood sugars are not at or below 130 mg/dl at the max dose of 16 units, or if experiencing hypoglycemia. Instructed patient to treat any hypoglycemia as directed. Basal insulin titration handout provided and reviewed. Provided patient with a copy of and reviewed Insulin in an Instant booklet with the patient including using a new pen needle with each injection, proper site rotation, proper insulin storage, doinga 2 unit safety shot before each injection and holding the injection for the milling machinist specifiedamount of time. Pt to send in BG logs q 2 weeks. Will send via [employer]. Provided BG logs to pt today. Pt voiced and demonstrated understanding of instruction given today. Flowsheet updated. Materials Provided: Insulin in an Instant, Insulin titration schedule RVVO: Dr. Sanchez/Yolis Oneal RDN, LD, [facility]/Sariah Samaniego RD, SUSANNE, Machine Technician documented in this encounter Plan of Treatment Upcoming Encounters Date Type Department Care Team (Late st Contact Info) Description 04/26/2024 9:00 AM EDT Office Visit [facility] Nephrology [place] [address] [facility] [address] [place] [address] Julio Silva MD [address] [facility] [address] [address] [place] [address] documented as of this encounter Visit Diagnoses Diagnosis Uncontrolled diabetes mellitus with stage 3 chronic kidney disease, without long-term current use of insulin- Primary Dyslipidemia Other and unspecified hyperlipidemia Essential hypertension Unspecified essential hypertension documented in this encounter Care Teams Casino Floor Supervisor Relationship Specialty Start Date End Date Aba Espinoza MD [address] [place] [address] [place] [address] PCP - General Family Medicine 07/27/16 Fili Sanchez MD [address] [address] Internal Medicine-Endocrinology, Diabetes & Metabolism 04/11/14 documented as of this encounter
--- OUTSIDE RECORDS SUMMARY | 2024-01-18 14:57 | XMS_ITS | Encounter Summary ---
Author Organization [place] [address] Care Team Providers Care Security System Analyst Name Role Phone Fili Sanchez MD Unavailable Aba Espinoza MD Primary Care Provider [phone] Reason for Visit * Reason Onset Date Comments Cancellation 10/21/2020 10/23/20 appointme nt Encounter Details Date Type Department Care Team (Late st Contact Info) Description 10/21/[address] [facility] [address] [facility] [address] [place] [address] Fili Sanchez MD 1500 [facility] [address] [place] [address] Cancellation (10/23/20 appointment) Social History Tobacco Use Types Packs/Day Years [...] Telephone Encounter - Fili Sanchez MD - 2020 12:16 PM EDT noted * Telephone Encounter - Lizy Stuart MA - 10/21/2020 10:18 AM EDT Noted: No labs need to be reviewed at this time. * Telephone Encounter - Tad Mcleod - 10/21/2020 7:21 AM EDT Patient left voicemail on 10/19/20 to cancel 10/23/20 appointment. documented in this encounter Plan of Treatment Upcoming Encounters Date Type Department Care Team (Late st Contact Info) Description 04/26/2024 9:00 AM EDT Office Visit [facility] Nephrology [place] [address] [place] [address] Julio Silva MD [address] [place] [address] documented as of this encounter Visit Diagnoses Not on filedocumented in this encounter Care Teams Security System Analyst Relationship Specialty Start Date End Date Aba Espinoza MD [address] [place] [id number] PCP - General Family Medicine 07/27/16 Fili Sanchez MD [address] [facility] [address] [place] [address] Internal Medicine-Endocrinology, Diabetes & Metabolism 04/11/14 documented as of this encounter
--- OUTSIDE RECORDS SUMMARY | 2024-01-18 14:57 | XMS_ITS | Encounter Summary ---
Author Organization [place] [address] Care Team Providers Care Client Experience Specialist Name Role Phone Fili Sanchez MD Unavailable [phone] Aba Espinoza MD Primary Care Provider [phone] Encounter Details Date Type Department Care Team (Late st Contact Info) Description 06/19/2020 Orders Only [facility] Diabetes [place] [address] [facility] [address] [place] [address] Fili Sanchez MD [address] [facility] [address] [place] [phone] Uncontrolled diabetes mellitus with stage 3 [...] [facility] Nephrology [place] [address] [place] [place] [address] Julio Silva MD [address] [place] [address] documented as of this encounter Results * (ABNORMAL) HEMOGLOBIN A1C (06/27/2020 8:09 AM EDT) Pathologist [facility] Hgb A1C 7.3(H) 4.2 - 5.6 % 06/27/2020 11:57 AM EDT [facility]. Avg Glucose 163 mg/dL 06/27/2020 11:57 AM EDT [facility] Blood Venipuncture / Unknown 06/27/2020 8:09 AM EDT 06/27/2020 8:09 AM EDT Narrative [facility] - 06/27/2020 11:57 AM EDT REFERENCE RANGE: Normal: 4.0-5.6% Pre-diabetes: 5.7-6.4% Provisional diagnosis of diabetes: >6.4% Hgb F>10% and anything which shortens red cell survival, such as hemolytic anemia, or unstable hemoglobin variants such as HbSS, HbSC, or HbCC, will lower the HbA1c value associated with a given level of glycemic control. ? Filinicole Sanchez MD CHEMISTRY ORDERABLES Fin al Result [facility] [address] [facility] , [place] [address] * (ABNORMAL) COMPREHENSIVE METABOLIC PANEL (06/27/2020 8:09 AM EDT) Pathologist [facility] Sodium 139 136 - 145 mmol/L 06/27/2020 12:05 PM EDT [facility] Potassium 4.8 3.5 - 5.0 mmol/L 06/27/2020 12:05 PM EDT [facility] Chloride 102 98 - 107 mmol/L 06/27/2020 12:05 PM EDT [facility] Total CO2 26 22 - 29 mmol/L 06/27/2020 12:05 PM EDT [facility] Anion Gap 11 7 - 16 mmol/L 06/27/2020 12:05 PM EDT [facility] Calcium 9.7 8.8 - 10.4 mg/dL 06/27/2020 12:05 PM EDT [facility] Glucose Lvl 189(H) 82 - 100 mg/dL 06/27/2020 12:05 PM EDT [facility] BUN 24(H) 8 - 23 mg/dL 06/27/2020 12:05 PM EDT [facility] Creatinine 1.46(H) 0.67 - 1.30 mg/dL 06/27/2020 12:05 PM EDT [facility] Albumin 4.5 3.2 - 4.6 gm/dL 06/27/2020 12:05 PM EDT [facility] Total Protein 7.5 6.4 - 8.3 gm/dL 06/27/2020 12:05 PM EDT [facility] Bili Total 0.3 0.1 - 1.4 mg/dL 06/27/2020 12:05 PM EDT [facility] ALT 18 <=41 U/L 06/27/2020 12:05 PM EDT [facility] AST 19 <=40 U/L 06/27/2020 12:05 PM EDT [facility] Alk Phos 64 40 - 129 U/L 06/27/2020 12:05 PM EDT [facility] GFR Afr Am 56(L) >=60 mL/min/1.7 3 m2 06/27/2020 12:05 PM EDT [facility] GFR Non Afr Am 49(L) >=60 mL/min/1.7 3 m2 06/27/2020 12:05 PM EDT [facility] Comment: This estimated GFR was calculated [...] or muscle mass. Blood Venipuncture / Unknown 06/27/2020 8:09 AM EDT 06/27/2020 8:09 AM EDT Fili Sanchez MD CHEMISTRY ORDERABLES Fin al Result [facility] [address] [facility] , [place] [address] [facility] [address] [place] [address] * (ABNORMAL) LIPID PANEL REFLEX (06/27/2020 8:09 AM EDT) Cholesterol 130 <200 mg/dL 06/27/2020 12:19 PM EDT [facility] Comment: < 200 ?Desirable 200 - 239 ? Borderline High >= 240 ?High Triglyceride 191(H) <150 mg/dL 06/27/2020 12:19 PM EDT [facility] Comment: < 150 ? Normal 150 - 199 ?Borderline High 200 - 499 ?High ??>= 500 ? Very High HDL 46 >=40 mg/dL 06/27/2020 12:19 PM EDT [facility] Comment: ??> 60 ?Optimal 40 - 60 ?Acceptable ?? < 40 ?Low LDL Direct 61 <100 mg/dL 06/27/2020 12:19 PM EDT [facility] Non-HDL-C Calculated 84 <=129 mg/dL 06/27/2020 12:19 PM EDT [facility] Comment: <130 ?Desirable 130-159 Above Desirable 160-189 Borderline High 190-219 High >= 220 ??Very High Fasting Specimen? Yes None 021 12:19 PM EDT [facility] Blood Venipuncture / Unknown 06/27/2020 8:09 AM EDT 06/27/2020 8:09 AM EDT Fili Sanchez MD CHEMISTRY ORDERABLES Fin al Result [facility] [address] [facility], [place] [address] [facility] [address] [place], [place] [id number] documented in this encounter Visit Diagnoses Diagnosis Uncontrolled diabetes mellitus with stage 3 chronic kidney disease, without long-term current use of insulin- Primary documented in this encounter Care Teams Client Experience Specialist Relationship Specialty Start Date End Date Aba Espinoza MD [address] [place] [address] PCP - General Family Medicine 07/27/16 Fili Sanchez MD [address] [facility] [address] [place] [address] Internal Medicine-Endocrinology, Diabetes & Metabolism 04/11/14 documented as of this encounter
--- OUTSIDE RECORDS SUMMARY | 2024-01-18 14:57 | XMS_ITS | Encounter Summary ---
Author Organization [place] [address] Care Team Providers Care Steel Molder Name Role Phone Fili Sanchez MD Unavailable [phone] Aba Espinoza MD Primary Care Provider [phone] Reason for Visit * Reason Comments Medication Refill Encounter Details Date Type Department Care Team (Late st Contact Info) Description 12/29/2020 Refill [facility] Physicians [facility] [place] [address] [facility] [address] [place] [phone] Fili Sanchez MD [address] [address] Medication Refill Social History Tobacco [...] 2ND GEN PEN NEEDLE 32 gauge x Misc Needle USE ONCE DAILY TO GIVE INSULIN SHOT 100 Each 2 12/30/2020 2 documented in this encounter Plan of Treatment Upcoming Encounters Date Type Department Care Team (Late st Contact Info) Description 04/26/2024 9:00 AM EDT Office Visit [facility] Nephrology [place] [address] [place] [address] Julio Silva MD [address] [place] [address] documented as of this encounter Visit Diagnoses Not on filedocumented in this encounter Discontinued Medications Medication Sig Discontinue Reason Start Date End Da te Insulin [place], Disposable, (PATITO PEN NEEDLE) 32 gauge x 5/32 Misc Needle Use one time daily to give insulin shot. 03/24/2020 12/30/2020 documented as of this encounter Care Teams Steel Molder Relationship Specialty Start Date End Date Aba Espinoza MD [address] [place] [address] PCP - General Family Medicine 07/27/16 Fili Sanchez MD [address] [facility] [address] [place] [address] Internal Medicine-Endocrinology, Diabetes & Metabolism 04/11/14 documented as of this encounter
--- OUTSIDE RECORDS SUMMARY | 2024-01-18 14:57 | XMS_ITS | Encounter Summary ---
Author Organization [facility] [place] [address] Care Team Providers Care Ethnographic Materials Conservator Name Role Phone Fili Sanchez MD Unavailable [phone] Aba Espinoza MD Primary Care Provider [phone] Encounter Details Date Type Department Care Team (Latest Contact Info) Description 11/05/2020 Travel Social History Tobacco Use Types Packs/Day [...] 04/26/2024 9:00 AM EDT Office Visit [facility] Nephrology [place] [address] [place] [address] Julio Silva MD [address] [place], [place] [id number] documented as of this encounter Visit Diagnoses Not on filedocumented in this encounter Care Teams Ethnographic Materials Conservator Relationship Specialty Start Date End Date Aba Espinoza MD [address] [place] [address] [place] [address] PCP - General Family Medicine 07/27/16 Fili Sanchez MD [address] [facility] [address] [place] [address] Internal Medicine-Endocrinology, Diabetes & Metabolism 04/11/14 documented as of this encounter
--- OUTSIDE RECORDS SUMMARY | 2024-01-18 14:57 | XMS_ITS | Encounter Summary ---
Author Organization [place] [address] Care Team Providers Care Meatcutter Name Role Phone Fili Sanchez MD Unavailable [phone] Aba Espinoza MD Primary Care Provider [phone] Encounter Details Date Type Department Care Team (Latest Contact Info) Description 06/27/2020 8:04 AM EDT - 06/27/2020 11:59 PM EDT Hospital Encounter [facility] [address] [place] [address] Uncontrolled diabetes mellitus with stage [...] mouth daily. nitroGLYCERIN (NITROLINGUAL) 400 mcg/spray TL [place], Non-Aerosol Place 1 [place] under the tongue every 5 minutes as [...] day. 15 mL 2 06/27/2020 02/20/2021 Insulin [place], Disposable, (PATITO PEN NEEDLE) 32 gauge x 5/32 Misc Needle Use one time daily to give insulin shot. 1 box 11 03/24/2020 12/30/2020 metFORMIN (GLUCOPHAGE) 1,000 mg Oral Tablet TAKE [...] EDT Office Visit [facility] Nephrology [place] [address] [place] [address] Julio Silva MD [address] [address] documented as of this encounter Procedures Procedure Name Priority Date/Time Associated Diagnosis Comments LIPID PANEL REFLEX Routine 06/27/2020 8: 09 AM EDT Uncontrolled diabetes mellitus with stage 3 chronic kidney disease, without long-term current use of insulin (HCC) HEMOGLOBIN A1C Routine 06/27/2020 8:09 AM EDT Uncontrolled diabetes mellitus with stage 3 chronic kidney disease, without long-term current use of insulin (HCC) COMPREHENSIVE METABOLIC PANEL Routine 06/27/2020 8:09 AM EDT Uncontrolled diabetes mellitus with stage 3 chronic kidney disease, without long-term current use of insulin (HCC) documented in this encounter Results * (ABNORMAL) HEMOGLOBIN A1C (06/27/2020 8:09 AM EDT) Hgb A1C 7.3(H) 4.2 - 5.6 % 06/27/2020 11:57 AM EDT [facility] Est. Avg Glucose 163 mg/dL 06/27/2020 11:57 AM EDT [facility] Blood Venipuncture / Unknown 06/27/2020 8:09 AM EDT 06/27/2020 8:09 AM EDT Narrative [facility] - 06/27/2020 11:57 AM EDT REFERENCE RANGE: Normal: 4.0-5.6% Pre-diabetes: 5.7-6.4% Provisional diagnosis of diabetes: >6.4% Hgb F>10% and anything which shortens red cell survival, such as hemolytic anemia, or unstable hemoglobin variants such as HbSS, HbSC, or HbCC, will lower the HbA1c value associated with a given level of glycemic control. ? Fili Sanchez MD CHEMISTRY ORDERABLES Fin al Result [facility] [address] [facility] , [place] [address] * (ABNORMAL) COMPREHENSIVE METABOLIC PANEL (06/27/2020 8:09 AM EDT) Sodium 139 136 - 145 mmol/L 06/27/2020 12:05 PM EDT [facility] Potassium 4.8 3.5 - 5.0 mmol/L 06/27/2020 12:05 PM EDT [facility] Chloride 102 98 - 107 mmol/L 06/27/2020 12:05 PM EDT [facility] Total CO2 26 22 - 29 mmol/L 06/27/2020 12:05 PM EDT [facility] Anion Gap 11 7 - 16 mmol/L 06/27/2020 12:05 PM EDT [facility] Calcium 9.7 8.8 - 10.4 mg/dL 06/27/2020 12:05 PM EDT [facility] Glucose Lvl 189(H) 82 - 100 mg/dL 06/27/2020 12:05 PM EDT [facility] BUN 24(H) 8 - 23 mg/dL 06/27/2020 12:05 PM EDT [facility] Creatinine 1.46(H) 0.67 - 1.30 mg/dL 06/27/2020 12:05 PM EDT [facility] Albumin 4.5 3.2 - 4.6 gm/dL 06/27/2020 12:05 PM EDT [facility] Total Protein 7.5 6.4 - 8.3 gm/dL 06/27/2020 12:05 PM EDT [facility] Bili Total 0.3 0.1 - 1.4 mg/dL 06/27/2020 12:05 PM EDT [facility] ALT 18 <=41 U/L 06/27/2020 12:05 PM EDT [facility] AST 19 <=40 U/L 06/27/2020 12:05 PM EDT [facility] Alk Phos 64 40 - 129 U/L 06/27/2020 12:05 PM EDT [facility] GFR Afr Am 56(L) >=60 mL/min/1.7 3 m2 06/27/2020 12:05 PM EDT [facility] GFR Non Afr Am 49(L) >=60 mL/min/1.7 3 m2 06/27/2020 12:05 PM EDT [facility] Comment: This estimated GFR was calculated [...] 8:09 AM EDT 06/27/2020 8:09 AM EDT us Fili Sanchez MD CHEMISTRY ORDERABLES Fin al Result [facility] [address] [facility], [place] [address] [facility] [address] [place] [address] * (ABNORMAL) LIPID PANEL REFLEX (06/27/2020 8:09 AM EDT) [facility] Cholesterol 130 <200 mg/dL 06/27/2020 12:19 PM EDT [facility] Comment: < 200 ?Desirable 200 - 239 ? Borderline High >= 240 ?High Triglyceride 191(H) <150 mg/dL 06/27/2020 12:19 PM EDT [facility] Comment: < 150 ? Normal 150 - 199 ?Borderline High 200 - 499 ?High ??>= 500 ? Very High HDL 46 >=40 mg/dL 06/27/2020 12:19 PM EDT [facility] Comment: ??> 60 ?Optimal 40 - 60 ?Acceptable ?? < 40 ?Low LDL Direct 61 <100 mg/dL 06/27/2020 12:19 PM EDT [facility] Non-HDL-C Calculated 84 <=129 mg/dL 06/27/2020 12:19 PM EDT [facility] Comment: <130 ?Desirable 130-159 Above Desirable 160-189 Borderline High 190-219 High >= 220 ??Very High Fasting Specimen? Yes None 021 12:19 PM EDT [facility] Blood Venipuncture / Unknown 06/27/2020 8:09 AM EDT 06/27/2020 8:09 AM EDT Fili Sanchez MD CHEMISTRY ORDERABLES Fin al Result [facility] [address] [facility], [place] [address] [facility] 1 [place], [place] [id number] documented in this encounter Visit Diagnoses Diagnosis Uncontrolled diabetes mellitus with stage 3 chronic kidney disease, without long-term current use of insulin documented in this encounter Care Teams Meatcutter Relationship Specialty Start Date End Date Aba Espinoza MD [address] [place] [address] [place] [address] PCP - General Family Medicine 07/27/16 Fili Sanchez MD [address] [facility] [address] [place] [address] Internal Medicine-Endocrinology, Diabetes & Metabolism 04/11/14 documented as of this encounter
--- OUTSIDE RECORDS SUMMARY | 2024-01-18 14:57 | XMS_ITS | Encounter Summary ---
Author Organization [place] [address] Care Team Providers Care Care Associate Name Role Phone Fili Sanchez MD Unavailable [phone] Aba Espinoza MD Primary Care Provider [phone] Encounter Details Date Type Department Care Team (Late st Contact Info) Description 02/15/2021 Orders Only [facility] Diabetes [place] 1500 [facility] [address] [place] [phone] Fili Sanchez MD 1500 [facility] [address] [place] [phone] Controlled type 2 diabetes mellitus with stage 3 chronic kidney disease, with long-term current use of insulin (HCC) (Primary Dx); Uncontrolled diabetes mellitus with stage 3 chronic kidney disease, without long-term current use of insulin (HCC) Social [...] Visit [facility] Nephrology [place] [address] [place] [address] Julio Silva MD [address] [place] [address] documented as of this encounter Results * MICROALBUMIN/CREATININE RATIO URINE (02/19/2021 12:08 PM EST) Urine Microalb 15.5 mg/L 02/19/2021 4:08 PM EST [facility] Urine Creatinine 102.2 mg/dL 02/19/2021 4:08 PM EST [facility] Ur Microalb/Creat 15 0 - 30 mg/g 02/19/2021 4:08 PM EST [facility] Urine 02/19/2021 12:0 8 PM EST 02/19/2021 12:08 PM EST Fili Nevaeh Sanchez MD URINE ORDERABLES Final R esult [facility] [address] [facility] , [place] [address] * (ABNORMAL) HEMOGLOBIN A1C (02/19/2021 10:09 AM EST) Hgb A1C 6.9(H) 4.2 - 5.6 % 02/19/2021 2:52 PM EST [facility] Est. Avg Glucose 151 mg/dL 02/19/2021 2:52 PM EST [facility] Blood Venipuncture / Unknown 02/19/2021 10:09 AM EST 02/19/2021 10:09 AM EST Narrative [facility] - 02/19/2021 2:52 PM EST REFERENCE RANGE: [...] Result [facility] [address] [facility] , [place] [address] * (ABNORMAL) COMPREHENSIVE METABOLIC PANEL (02/19/2021 10:09 [...] mg/dL 02/19/2021 2:57 PM EST [facility] ALT 23 <=41 U/L 02/19/2021 2:57 PM EST [facility] AST 22 <=40 U/L 02/19/2021 2:57 PM EST [facility] Alk Phos 57 40 - 129 U/L 02/19/2021 2:57 PM EST [facility] eGFR (CKD-EPIcr 2020) 51(L) >=60 mL/min/1.7 3 m2 02/19/2021 2:57 PM EST [facility] Comment:Estimated GFR was ca lculated using the CKD-EPIcr (2020) equation refit without race. The equation is recommended by the National Kidney Foundation - [place] [employer] of Nephrology Task Force. Blood Venipuncture / Unknown 02/19/2021 10:09 AM EST 02/19/2021 10:09 AM EST Fili Sanchez MD CHEMISTRY ORDERABLES Fin al Result [facility] [address] [facility] , [place] [address] [facility] [address] [place] [address] * LIPID PANEL REFLEX (02/19/2021 10:09 AM EST) Cholesterol 141 <200 mg/dL 02/19/2021 2:57 PM EST [facility] Comment: < 200 ?Desirable 200 - 239 ? Borderline High >= 240 ?High Triglyceride 118 <150 mg/dL 02/19/2021 2:57 PM EST [facility] Comment: < 150 ? Normal 150 - 199 ?Borderline High 200 - 499 ?High ??>= 500 ? Very High HDL 51 >=40 mg/dL 02/19/2021 2:57 PM EST [facility] Comment: ??> 60 ?Optimal 40 - 60 ?Acceptable ?? < 40 ?Low LDL Calculated 69 <100 mg/dL 02/19/2021 2:57 PM EST [facility] Non-HDL-C Calculated 90 <=129 mg/dL 02/19/2021 2:57 PM EST [facility] Comment: <130 ?Desirable 130-159 Above Desirable 160-189 Borderline High 190-219 High >= 220 ??Very High Fasting Specimen? Yes None 022 2:57 PM EST [facility] Blood Venipuncture / Unknown 02/19/2021 10:09 AM EST 02/19/2021 10:09 AM EST Fili Sanchez MD CHEMISTRY ORDERABLES Fin al Result [facility] 1 [facility], [place] [address] [facility] [address] [place] [address] documented in this encounter Visit Diagnoses Diagnosis Controlled type 2 diabetes mellitus with stage 3 chronic kidney disease, with long-term current use of insulin (HCC)- Primary Uncontrolled diabetes mellitus with stage 3 chronic kidney disease, without long-term current use of insulin documented in this encounter Care Teams Care Associate Relationship Specialty Start Date End Date Aba Espinoza MD [address] [place] [phone] PCP - General Family Medicine 07/27/16 Fili Sanchez MD [address] [facility] [address] [place] [address] Internal Medicine-Endocrinology, Diabetes & Metabolism 04/11/14 documented as of this encounter
--- OUTSIDE RECORDS SUMMARY | 2024-01-18 14:58 | XMS_ITS | Encounter Summary ---
Author Organization [place] [address] Care Team Providers Care Master Plumber Name Role Phone Fili Sanchez MD Unavailable [phone] Aba Espinoza MD Primary Care Provider [phone] Reason for Visit * Reason Onset Date Comments Results 02/22/2019 Encounter Details Date Type Department Care Team (Late st Contact Info) Description 02/22/2019 Telephone [facility] 1500 [facility] [address] [place] [phone] Fili Sanchez MD 1500 [facility] [address] [place] [phone] Results Social History Tobacco Use Types [...] Telephone Encounter - Sonali Don RMA - 02/22/2019 1:13 PM EST Left message on for pt regarding result note. * Telephone Encounter - Sonali Don RMA - 02/22/2019 1:09 PM EST ----- Message from Fili Sanchez MD sent at 02/22/2019 1:03 PM EST ----- Xray did not show any fracture. 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 Advise to set up appointment with Dr. Espinoza [facility]. Please send my note, results (blood tests, Xray) to Dr. Espinoza's office. documented in this encounter Plan of Treatment Upcoming Encounters Date Type Department Care Team (Late st Contact Info) Description 04/26/2024 9:00 AM EDT Office Visit [facility] Nephrology [place] [address] [place] [address] Julio Silva MD [address] [place] [address] documented as of this encounter Visit Diagnoses Not on filedocumented in this encounter Care Teams Master Plumber Relationship Specialty Start Date End Date Aba Espinoza MD [address] [place] [phone] PCP - General Family Medicine 07/27/16 Fili Sanchez MD [address] [facility] [address] [place] [address] Internal Medicine-Endocrinology, Diabetes & Metabolism 04/11/14 documented as of this encounter
--- OUTSIDE RECORDS SUMMARY | 2024-01-18 14:58 | XMS_ITS | Encounter Summary ---
Author Organization [place] [address] Care Team Providers Care Hydroelectric Machinery Mechanic Helper Name Role Phone Fili Sanchez MD Unavailable [phone] Aba Espinoza MD Primary Care Provider [phone] Reason for Visit * Reason Onset Date Comments Samples 12/27/2017 Encounter Details Date Type Department Care Team (Late st Contact Info) Description 12/27/2017 Telephone [facility] 1500 [facility] [address] [place] [phone] Fili Sanchez MD [address] [phone] Samples Social History Tobacco Use Types Packs/Day Years Used Date Smoking Tobacco: Every Day Cigarettes 1 0.5 Smokeless Tobacco: Never Comments:3 months ago Alcohol [...] Telephone Encounter - Sonali Don RMA - 12/29/2017 1:43 PM EST Pt was given two boxes (28) day supply of Januvia 100 mg and was instructed to cut the tabs in halffor the 50 mg dose. * Telephone Encounter - Abby Linda RN - 12/27/2017 11:37 AM EST LM on VM per [facility]. Samples are available, sample policy left on VM as well. OK for samples. * Telephone Encounter - Tad Mcleod - 12/27/2017 11:23 AM EST Patient called requesting samples of sitaGLIPtin (JANUVIA) 50 mg Oral Tablet documented in this encounter Plan of Treatment Upcoming Encounters Date Type Department Care Team (Late st Contact Info) Description 04/26/2024 9:00 AM EDT Office Visit [facility] Nephrology [place] [address] [facility] [address] [place] [address] Julio Silva MD [address] [place] [address] documented as of this encounter Visit Diagnoses Not on filedocumented in this encounter Care Teams Hydroelectric Machinery Mechanic Helper Relationship Specialty Start Date End Date Aba Espinoza MD [address] [place] [phone] PCP - General Family Medicine 07/27/16 Fili Sanchez MD [address] [facility] [address] [place] [address] Internal Medicine-Endocrinology, Diabetes & Metabolism 04/11/14 documented as of this encounter
--- OUTSIDE RECORDS SUMMARY | 2024-01-18 14:58 | XMS_ITS | Encounter Summary ---
Author Organization [place] [address] Care Team Providers Care Canvas Shop Laborer Name Role Phone Fili Sanchez MD Unavailable [phone] Aba Espinoza MD Primary Care Provider [phone] Reason for Visit * Reason Comments Medication Refill Encounter Details Date Type Department Care Team (Late st Contact Info) Description 06/04/2019 Refill [facility] Physicians [facility] Diabetes [place] 1500 [facility] [address] [place] [phone] Fili Sanchez MD [address] [phone] Medication Refill Social History Tobacco [...] 1 TABLET NIGHTLY 90 Tab 3 06/04/2019 1 metFORMIN (GLUCOPHAGE) 1,000 mg Oral Tablet TAKE 1 TABLET TWICE A DAY 180 Tab 3 06/04/2019 1 documented in this encounter Miscellaneous Notes * Telephone Encounter - Sonali Don RMA - 06/04/2019 2:06 PM EDT LMVM to remind pt that we have converted his OV to a video visit and to call if he is unable to do this. documented in this encounter Plan of Treatment Upcoming Encounters Date Type Department Care Team (Late st Contact Info) Description 04/26/2024 9:00 AM EDT Office Visit [facility] Nephrology [place] [address] [facility] [address] [place] [address] Julio Silva MD [address] [facility] [address] [place] [address] documented as of this encounter Visit Diagnoses Not on filedocumented in this encounter Discontinued Medications Medication Sig Discontinue Reason Start Date End Da te metFORMIN (GLUCOPHAGE) 1,000 mg Oral Tablet TAKE 1 TABLET TWICE A DAY 08/01/2018 06/04/2019 simvastatin (ZOCOR) 40 mg Oral Tablet TAKE 1 TABLET NIGHTLY 08/23/2018 06/04/2019 documented as of this encounter Care Teams Canvas Shop Laborer Relationship Specialty Start Date End Date Aba Espinoza MD [address] [place] [phone] PCP - General Family Medicine 07/27/16 Fili Sanchez MD [address] [facility] [address] [place] [address] Internal Medicine-Endocrinology, Diabetes & Metabolism 04/11/14 documented as of this encounter
--- OUTSIDE RECORDS SUMMARY | 2024-01-18 14:58 | XMS_ITS | Encounter Summary ---
Author [place] [address] Care Team Providers Care Dairy Feed Mixing Operator Name Role Phone Fili Sanchez MD Unavailable [phone] Aba Espinoza MD Primary Care Provider [phone] Reason for Visit * Consultation (Routine) - Closed Specialty Diagnoses / Procedures Referred By Kadie casillas Referred To Contact Internal Medicine-Endocrinology, Diabetes & Metabolism / Diabetes Services Diagnoses DM TYPE 2 Aba Espinoza MD [address] [place] [address] Phone: tel: fax: Fili Sanchez MD [address] [place] [phone] Phone: tel: fax: Referral ID Status Reason Start Date Expiration Date Visits Re quested Visits Authorized [id number] Closed 02/22/2019 02/22/2020 99 99 Encounter Details Date Type Department Care Team (Late st Contact Info) Description 06/12/2019 12:40 PM EDT Telemedicine [facility] Diabetes [place] [address] [place], [place] [phone] Fili Sanchez MD [address] [place] [phone] Uncontrolled diabetes mellitus with stage 3 chronic [...] have Coronavirus / COVID-19? No / Unsure 06/11/2019 9:21 AM EDT documented as of this encounter Progress Notes * Fili Sanchez MD - 06/12/2019 12:40 PM EDT Telephone Visit. Patient presented today for routine care follow-up through a telephone visit. Patient is aware thatthis visit/encounter is replacing a face to face office service and is billable under applicable telephone visit billing rules per their insurance and is being imitated by the patient either through a direct scheduled telephone visit or after hours page to the office. Patient is aware that a telephone visit does not replace a [id number] exam and further services may be necessary. I advised the patient that we are conducting her telephone visit through our office in a private space. Patient had no questions prior to initiation of the visit and provided verbal consent to proceed. The length of time of this visit/call was 25 min. Diabetes Associated symptoms include arthralgias. Pt ID: Dane Ray is a 64 y.o. male who presents today for follow up Diabetes Mellitus since 2003. He is here for follow up. He was last seen in Mar. He is here today for BG review. Current diabetes regimen includes Metformin 1000 mg twice a day. Glipizide 5-7.5 mg twice a day. Januvia 100 mg a day. Feels sugars are coming down some. Meter downloaded and reviewed. Checking 1- 2x/day. Average 146 (107-191). Denies lows. Lowest BS was 87 Since the last year he had CABG and found to have EF of 10%. Following with cardiology [place] needed and goes to [facility] every 6 months. States he is eligible for LVAD but symptoms are stable so holding off. May eventually need transplant. He quit smoking. Review of Systems Eyes: Negative. Respiratory: Positive for shortness of breath (on exertion. [facility] Musculoskeletal: Positive for arthralgias. Objective Objective: Physical Exam Telephone visit Vitals not available Psychiatric: Mood and Affect: Mood normal. Behavior: Behavior normal. Thought Content: Thought content normal. Judgment: Judgment normal. Laboratory: Lab Results Component Value Date HGBA1C 7.2 (H) 06/11/2019 Lab Results Component Value Date CREATININE 1.51 (H) 06/11/2019 No results found for: TSHREFLEX Lab Results Component Value Date ALT 19 06/11/2019 AST 20 06/11/2019 ALKPHOS 55 06/11/2019 Lab Results Component Value Date URINEMICROAL 30.0 06/11/2019 Lab Results Component Value Date CHOLESTEROL 131 06/11/2019 Lab Results Component Value Date HDL 43 06/11/2019 Lab Results Component Value Date LDLCALC 62 06/11/2019 Lab Results Component Value Date TRIG 130 06/11/2019 No results found for: CHOLHDL Assessment and Plan: 1. Diabetes Mellitus Type 2 UnControlled Hba1c improved Plan: -Continue metformin and januvia. -Glipizide to one and half tab twice a day -Sugars improving. Enc to reduce snacking at night. -Enc continued lifestyle changes to aid in weight loss. -unable to use actos due to HF. -check fingerstick 2 times a day.Diabetes Health Maintance: Eye exam: Advised yearly eye exam. States last exam in 2018 in [place]. Will call for report. Foot exam: 05/2018 Micro-albumin: positive 03/2018 MATT/ARB:Losartan ASA: 81 mg once a day. Smoking: former smoker Obesity: 2. HTN: BP not available. Follow with cardiology. 3. Dyslipidemia: currently taking simvastatin 40 mg daily. Goal LDL of 70. At goal. 4. CAD with low EF Follow up with cardiology at [place] and at [facility] . Follow up in 4 months documented in this encounter Plan of Treatment Upcoming Encounters Date Type Department Care Team (Late st Contact Info) Description 04/26/2024 9:00 AM EDT Office Visit [facility] Nephrology [place] [address] [place] [address] Julio Silva MD [address] [facility] [address] [place] [address] documented as of this encounter Visit Diagnoses Diagnosis Uncontrolled diabetes mellitus with stage 3 chronic kidney disease, without long-term current use of insulin- Primary Dyslipidemia Other and unspecified hyperlipidemia Hypertension associated with diabetes (HCC) Type II or unspecified type diabetes mellitus with other specified manifestations, not stated as uncontrolled documented in this encounter Care Teams Dairy Feed Mixing Operator Relationship Specialty Start Date End Date Aba Espinoza MD [address] [place] [address] PCP - General Family Medicine 07/27/16 Fili Sanchez MD [address] [facility] [address] [place] [address] Internal Medicine-Endocrinology, Diabetes & Metabolism 04/11/14 documented as of this encounter
--- OUTSIDE RECORDS SUMMARY | 2024-01-18 14:58 | XMS_ITS | Encounter Summary ---
Author Organization [place] [address] Care Team Providers Care Carpenter Supervisor Wooden Ship Name Role Phone Fili Sanchez MD Unavailable [phone] Aba Espinoza MD Primary Care Provider [phone] Reason for Visit * Reason Onset Date Comments Confirmation 07/23/2019 Encounter Details Date Type Department Care Team (Late st Contact Info) Description 07/23/2019 [facility] 1500 [facility] [address] [place] [phone] Fili Sanchez MD [address] [phone] Confirmation Social History Tobacco Use Types Packs/Day Years [...] have Coronavirus / COVID-19? No / Unsure 07/23/2019 9:20 AM EDT documented as of this encounter Miscellaneous Notes * Telephone Encounter - Janee Bedoya MA - 07/23/2019 2:51 PM EDT LVM to confirm vv appointment 07/24/19 and to call with any questions or issues with connecting. Also, stated someone from our office will call 10-15 mins prior to appointment time to go over medications. documented in this encounter Plan of Treatment Upcoming Encounters Date Type Department Care Team (Late st Contact Info) Description 04/26/2024 9:00 AM EDT Office Visit [facility] Nephrology [place] [address] [facility] [address] [place] [address] Julio Silva MD [address] [facility] [address] [place] [address] documented as of this encounter Visit Diagnoses Not on filedocumented in this encounter Care Teams Carpenter Supervisor Wooden Ship Relationship Specialty Start Date End Date Aba Espinoza MD [address] [place] [phone] PCP - General Family Medicine 07/27/16 Fili Sanchez MD [address] [facility] [address] [place] [address] Internal Medicine-Endocrinology, Diabetes & Metabolism 04/11/14 documented as of this encounter
--- OUTSIDE RECORDS SUMMARY | 2024-01-18 14:58 | XMS_ITS | Encounter Summary ---
Author Organization [place] [address] Care Team Providers Care Hone Operator Name Role Phone Fili Sanchez MD Unavailable [phone] Aba Espinoza MD Primary Care Provider [phone] Reason for Visit * Reason Comments Diabetes type 2 * Consultation (Routine) - Closed Specialty Diagnoses / Procedures Referred By Kadie casillas Referred To Contact Internal Medicine-Endocrinology, Diabetes & Metabolism / Diabetes Services Diagnoses Diabetes mellitus (HCC) fu dm ty 2 - patient called for appt Procedures DM FOLLOW UP Aba Espinoza MD [address] [place] [address] Phone: tel: fax: Fili Sanchez MD [address] [place] [phone] Phone: tel: fax: Referral ID Status Reason Start Date Expiration Date Visits Re quested Visits Authorized [id number] Closed 07/20/2017 07/20/2018 99 99 Encounter Details Date Type Department Care Team (Late st Contact Info) Description 04/07/2018 8:00 AM EST [facility] [place] [address] [place] [address] Fili Sanchez MD [address] [facility] [address] [place] [address] Uncontrolled type 2 diabetes mellitus without complication, without long-term current use of insulin (HCC) [...] Sign Reading Time Taken Comments Blood Pressure 95/65 04/07/2018 8:05 AM EST Pulse 83 04/07/2018 8:05 AM EST Temperature - - Respiratory Rate 15 04/07/2018 8:05 AM EST Oxygen Saturation - - Inhaled Oxygen Concentration - - Weight 126.6 kg (279 lb) 04/07/2018 8:05 AM EST Height 186.1 cm (6' 1.25 ) 04/07/2018 8:05 AM ES T Body Mass Index 36.56 04/07/2018 8:05 AM EST documented in this encounter Ordered Prescriptions Prescription Sig Dispense Quantity Refills Last Filled Start Date End Date sitaGLIPtin (JANUVIA) 100 mg Oral Tablet Take 1 Tab by mouth daily. 30 Tab 6 04/07/2018 9 Lancets [facility] FastCLIX Lancets - use to test BS 2 x daily. E11.65 200 Each 1 04/07/2018 0 ACCU-CHEK GUIDE [facility] Strip 1 Each by [facility].(Non-Drug ; Combo Route) route 2 times daily. E11.65 200 Strip 3 04/07/2018 0 documented in this encounter Progress Notes * Sonali Don, ZAYNABA - 04/07/2018 8:00 AM EST Brought Accu Check Guide meter - tests 2 x daily Pharm verified * Fili Sanchez MD - 04/07/2018 8:00 AM EST Pt ID: Dane Ray is a 64 y.o. male who presents today for follow up Diabetes Mellitus since 2003. Chief Complaint Patient presents with ??? Diabetes type 2 Diabetes He is here for follow up. Current diabetes regimen includes Metformin 1000 mg twice a day. Glipizide 5 mg twice a day. Januvia 100 mg a day. Checks BS once a day and runs 150 or higher. 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 Following with cardiology at [facility] now at [facility]. He quit smoking. Though because of Decreased physical activity since CABG and has been gaining weight. Has gained almost 40 lbs since last year. Review of Systems Constitutional: Positive for unexpected weight change. HENT: Negative. Eyes: Negative. Respiratory: Positive for shortness of breath (on exertion). Objective Objective: Vitals: 04/07/18 0805 BP: 95/65 Pulse: 83 Resp: 15 Weight: 279 lb (126.6 kg) Height: 6' 1.25 (1.861 m) Physical Exam Constitutional: He is oriented to person, place, and time. He appears well- developed and well-nourished. HENT: Head: Normocephalic and atraumatic. Eyes: Conjunctivae are normal. Right eye exhibits no discharge. Left eye exhibits no discharge. Neck: Normal range of motion. No JVD present. No tracheal deviation present. No thyromegaly present. Cardiovascular: Normal rate, regular rhythm, normal heart sounds and intact distal pulses. No murmur heard. Pulmonary/Chest: Effort normal and breath sounds normal. No respiratory distress. He has no wheezes. Abdominal: Soft. He exhibits no distension. Musculoskeletal: Normal range of motion. He exhibits no edema or tenderness. Neurological: He is alert and oriented to person, place, and time. Skin: Skin is warm and dry. No rash noted. Psychiatric: He has a normal mood and affect. His behavior is normal. Judgment and thought content normal. Laboratory: Lab Results Component Value Date HGBA1C 8.2 (H) 04/05/2018 Lab Results Component Value Date CREATININE 1.49 (H) 04/05/2018 No results found for: TSHREFLEX Lab Results Component Value Date ALT 26 04/05/2018 AST 26 04/05/2018 ALKPHOS 49 04/05/2018 Lab Results Component Value Date URINEMICROAL 32.6 04/05/2018 Lab Results Component Value Date CHOLESTEROL 155 04/05/2018 Lab Results Component Value Date HDL 43 04/05/2018 Lab Results Component Value Date LDLCALC 68 04/05/2018 Lab Results Component Value Date TRIG 221 (H) 04/05/2018 No results found for: CHOLHDL Assessment and Plan: 1. Diabetes Mellitus Type 2 UnControlled Hba1c has increased likely related to weight gain, decreased physical activity and stopping Januvia. Plan: Continue metformin and Glipizide 5 mg twice a day Increase Januvia to 100 mg a day. Discussed about switching to Trulicity as hba1c is higher than goal and he is gaining weight. Though he would like to see how he does with increased in physical activity and dietary changes -check fingerstick 2 times a day.Diabetes Health Maintance: Eye exam: Advised yearly eye exam. Foot exam: 07/2017 Micro-albumin: neg screen 07/29 MATT/ARB:Losartan ASA: 81 mg once a day. Smoking: Advised to quit. 2. HTN: Losartan 3. Dyslipidemia: currently taking simvastatin 40 mg daily. Goal LDL of 70. At goal. 4. CAD with low EF Follow up with cardiology at [place] and now following at [facility] . Follow up with LAMINATING PRESS OPERATOR in 6 weeks and with me in 3-4 months Patient Instructions Check BS twice a day till your next appointment with LAMINATING PRESS OPERATOR documented in this encounter Miscellaneous Notes * Patient Instructions - Fili Sanchez MD - 04/07/2018 8:00 AM EST Check BS twice a day till your next appointment with LAMINATING PRESS OPERATOR documented in this encounter Plan of Treatment Upcoming Encounters Date Type Department Care Team (Late st Contact Info) Description 04/26/2024 9:00 AM EDT Office Visit [facility] Nephrology [place] [address] [place] [address] Julio Silva MD [address] [place] [address] Scheduled Orders Name Type Priority Associated Diagnoses Orde r Schedule BASIC METABOLIC PANEL Lab Routine Uncontrolled type 2 diabetes mellitus, without long-term current use of insulin (HCC) Expected: 05/05/2018, Expires: 04/07/2019 documented as of this encounter Results * THYROID STIMULATING HORMONE (04/05/2018 4:48 PM EST) TSH 2.380 0.270 - 4.200 mcIU/mL 04/07/2018 9:48 AM EST [facility] Blood Venipuncture / Unknown 04/05/2018 4:48 PM EST 04/05/2018 4:48 PM EST Narrative [facility] - 04/07/2018 9:48 AM EST Ingestion of pratik doses of biotin (>5 mg/day) taken within 8 hours of drawing blood sample can interfere with this immunoassay test. Fili Sanchez MD CHEMISTRY ORDERABLES Fin al Result [facility] 1 [facility] , [place] [address] documented in this encounter Visit Diagnoses Diagnosis Uncontrolled type 2 diabetes mellitus without complication, without long-term current use of insulin- Primary Dyslipidemia Other and unspecified hyperlipidemia Essential hypertension Unspecified essential hypertension documented in this encounter Discontinued Medications Medication Sig Discontinue Reason Start Date End Da te ACCU-CHEK GUIDE [facility] Strip 1 Each by [facility].(Non-Drug; Combo Route) route 2 times daily. E11.65 Reorder 12/09/2017 04/07/2018 Lancets [facility] FastCLIX Lancets - use to test BS 2 x daily. E11.65 Reorder 12/09/2017 04/07/2018 sitaGLIPtin (JANUVIA) 50 mg Oral Tablet Take 1 Tab by mouth daily. Reorder 12/09/2017 04/07/2018 documented as of this encounter Historical Medications * This list may reflect changes made after this encounter. magnesium oxide (MAG-OX) 400 mg (241.3 mg magnesium) Oral Tablet Take 400 mg by mouth daily. 11/06/2020 added in this encounter Care Teams Hone Operator Relationship Specialty Start Date End Date Aba Espinoza MD [address] [place] [address] PCP - General Family Medicine 07/27/16 Fili Sanchez MD [address] [address] Internal Medicine-Endocrinology, Diabetes & Metabolism 04/11/14 documented as of this encounter
--- OUTSIDE RECORDS SUMMARY | 2024-01-18 14:58 | XMS_ITS | Encounter Summary ---
Author Organization [facility] [place] [address] Care Team Providers Care Enterprise Cloud Architect Name Role Phone Fili Sanchez MD Unavailable [phone] Aba Espinoza MD Primary Care Provider [phone] Encounter Details Date Type Department Care Team (Latest Contact Info) Description 11/15/2019 Travel Social History Tobacco Use Types Packs/Day [...] have Coronavirus / COVID-19? No / Unsure 11/15/2019 10:47 AM EDT documented as of this encounter Plan of Treatment Upcoming Encounters Date Type Department Care Team (Late st Contact Info) Description 04/26/2024 9:00 AM EDT Office Visit [facility] Nephrology [place] [address] [place] [place] [address] Julio Silva MD [address] [place] [address] documented as of this encounter Visit Diagnoses Not on filedocumented in this encounter Care Teams Enterprise Cloud Architect Relationship Specialty Start Date End Date Aba Espinoza MD [address] [place] [address] PCP - General Family Medicine 07/27/16 Fili Sanchez MD [address] [facility] [address] [place] [address] Internal Medicine-Endocrinology, Diabetes & Metabolism 04/11/14 documented as of this encounter
--- OUTSIDE RECORDS SUMMARY | 2024-01-18 14:58 | XMS_ITS | Encounter Summary ---
Author Organization [place] [address] Care Team Providers Care Local Operator Name Role Phone Fili Sanchez MD Unavailable [phone] Aba Espinoza MD Primary Care Provider [phone] Reason for Visit * Reason Comments Diabetes * Consultation (Routine) - Closed Specialty Diagnoses / Procedures Referred By Kadie casillas Referred To Contact Internal Medicine-Endocrinology, Diabetes & Metabolism / Diabetes Services Diagnoses DM TYPE 2 Aba Espinoza MD [address] [place] [address] [facility] [address] [place] [address] Phone: tel: fax: Fili Sanchez MD [address] [place] [address] Phone: tel: fax: Referral ID Status Reason Start Date Expiration Date Visits Re quested Visits Authorized [id number] Closed 02/22/2019 02/22/2020 99 99 Encounter Details Date Type Department Care Team (Late st Contact Info) Description 07/24/2019 2:20 PM EDT Telemedicine [facility] [place] [facility] Diabetes [place] [address] [place] [address] Fili Sanchez MD [address] [place], [place] [phone] Uncontrolled diabetes mellitus with stage 3 chronic kidney disease, without long-term current use of insulin (HCC) (Primary Dx); Syncope, unspecified syncope type; Dyslipidemia Social History Tobacco Use Types Packs/Day [...] Concentration - - Weight 122 kg (269 lb) 07/24/2019 2:11 PM EDT pt gave verbal Height - - Body Mass Index 35.23 02/22/2019 8:18 AM EST documented in this encounter Progress Notes * Janee Bedoya MA - 07/24/2019 2:20 PM EDT Patient tests once daily. Pharmacy verified. * Fili Sanchez MD - 07/24/2019 2:20 PM EDT Video visit. Patient presented today for routine care follow-up through a video visit. Patient has reviewed the terms and conditions of service as part of the registration for today's visit. Patient is aware thata video visit does not replace a [id number] exam and further services may be necessary. I advisedthe patient that we are conducting video visit through our office in a private space on our secure network and this video visit is being conducted in accordance with [facility] telehealth/video visit regulations. Patient had no questions prior to initiation of the visit. Diabetes Associated symptoms include arthralgias. Dane Ray is a 68 y.o. male who presents today for follow [...] Lowest BS was 87. Since the last visit he had an episode where he felt weak in his legs and fell. He checked BS it was 141. He had another episode where he fell down. He did eat whipped cream. After that he checked BSit was 91. He checks BS every day and runs in 90-105/50-80's Since the last year he had CABG and found to have EF of 10%. Following with cardiology at [facility] and goes to [facility] every 6 months. States he is eligible for LVAD but symptoms are stable so holding off. May eventually need transplant. He quit smoking. Review of Systems Eyes: Negative. Respiratory: Positive for shortness of breath (on exertion. [facility] and local[facility]ologist[facility] Musculoskeletal: Positive for arthralgias. Objective Objective: Physical Exam Video visit Vitals not available Constitutional: Appearance: Normal appearance. HENT: Head: Normocephalic and atraumatic. Eyes: General: Right eye: No discharge. Left eye: No discharge. Conjunctiva/sclera: Conjunctivae normal. Pulmonary: Effort: Pulmonary effort appears normal. Skin: Coloration: Skin is not pale. Neurological: Mental Status: Alert and oriented to [...] 2 UnControlled Plan: -Continue metformin and januvia. -Decrease Glipizide to one tab twice a day. Check [...] exam. States last exam in 2018 in [place]. Will call for report. Foot exam: 05/2018 Micro-albumin: positive 03/2018 MATT/ARB:Losartan ASA: 81 mg once a day. Smoking: former smoker Obesity: 2. 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 3. Dyslipidemia: currently taking simvastatin 40 mg daily. Goal LDL of 70. At goal. 4. CAD with low EF Follow up with cardiology at [place] and at [facility] . documented in this encounter Plan of Treatment Upcoming Encounters Date Type Department Care Team (Late st Contact Info) Description 04/26/2024 9:00 AM EDT Office Visit [facility] Nephrology [place] [address] [facility] [place] [address] Julio Silva MD [address] [facility] [address] documented as of this encounter Visit Diagnoses Diagnosis Uncontrolled diabetes mellitus with stage 3 chronic kidney disease, without long-term current use of insulin- Primary Syncope, unspecified syncope type Dyslipidemia Other and unspecified hyperlipidemia documented in this encounter Historical Medications * This list may reflect changes made after this encounter. allopurinoL (ZYLOPRIM) 100 mg Oral Tablet 100 mg daily. TAKES IN EVENING 06/22/2019 added in this encounter Care Teams Local Operator Relationship Specialty Start Date End Date Aba Espinoza MD [address] [place] [phone] PCP - General Family Medicine 07/27/16 Fili Sanchez MD [address] [phone] Internal Medicine-Endocrinology, Diabetes & Metabolism 04/11/14 documented as of this encounter
--- OUTSIDE RECORDS SUMMARY | 2024-01-18 14:58 | XMS_ITS | Encounter Summary ---
Author Organization [place] [address] Care Team Providers Care Injection Moulding Machine Operator Name Role Phone Fili Sanchez MD Unavailable [phone] Aba Espinoza MD Primary Care Provider [phone] Encounter Details Date Type Department Care Team (Late st Contact Info) Description 10/10/2019 Orders Only [facility] Diabetes [place] [address] [facility] [address] [place] [address] Fili Sanchez MD [address] [address] Uncontrolled diabetes mellitus with stage 3 [...] Description 04/26/2024 9:00 AM EDT Office Visit [facility] Nephrology [place] [address] [place] [address] Julio Silva MD [address] [place] [address] documented as of this encounter Results * MICROALBUMIN/CREATININE RATIO URINE (11/15/2019 12:44 PM EDT) Urine Microalb <12.0 mg/L 11/15/2019 5:31 PM EDT [facility] Urine Creatinine 158.6 mg/dL 11/15/19 20 5:31 PM EDT [facility] Ur Microalb/Creat 020 5:31 PM EDT [facility] Comment: Because the albumin level is below the level of detection in this urine specimen, the laboratory is unable to calculate a reliable albumin/creatinine ratio. Microalbuminuria is unlikely if the urine albumin concentration is less than 20- 30 mg/L in a random specimen. Urine 11/15/2019 12:4 4 PM EDT 11/15/2019 12:44 PM EDT Fili Sanchez MD URINE ORDERABLES Final R esult [facility] [address] [facility] , [place] [address] * (ABNORMAL) HEMOGLOBIN A1C (11/15/2019 10:56 AM EDT) Hgb A1C 7.6(H) 4.2 - 5.6 % 11/15/2019 3:29 PM EDT [facility] Est. Avg Glucose 171 mg/dL 11/15/2019 3:29 PM EDT [facility] Blood Venipuncture / Unknown 11/15/2019 10:56 AM EDT 11/15/2019 10:56 AM EDT Narrative [facility] - 11/15/2019 3:29 PM EDT REFERENCE RANGE: Normal: 4.0-5.6% Pre-diabetes: 5.7-6.4% Provisional diagnosis of diabetes: >6.4% Hgb F>10% and anything which shortens red cell survival, such as hemolytic anemia, or unstable hemoglobin variants such as HbSS, HbSC, or HbCC, will lower the HbA1c value associated with a given level of glycemic control. ? Fili Sanchez MD CHEMISTRY ORDERABLES Fin al Result [facility] [address] [facility] , [place] [address] * (ABNORMAL) COMPREHENSIVE METABOLIC PANEL (11/15/2019 10:56 AM EDT) Sodium 138 136 - 145 mmol/L 11/15/2019 3:52 PM EDT [facility] Potassium 4.9 3.5 - 5.0 mmol/L 11/15/2019 3:52 PM EDT [facility] Chloride 102 98 - 107 mmol/L 11/15/2019 3:52 PM EDT [facility] Total CO2 27 22 - 29 mmol/L 11/15/2019 3:52 PM EDT [facility] Anion Gap 9 7 - 16 mmol/L 11/15/2019 3:52 PM EDT [facility] Calcium 9.6 8.8 - 10.4 mg/dL 11/15/2019 3:52 PM EDT [facility] Glucose Lvl 166(H) 82 - 100 mg/dL 11/15/2019 3:52 PM EDT [facility] BUN 24(H) 8 - 23 mg/dL 11/15/2019 3:52 PM EDT [facility] Creatinine 1.34(H) 0.67 - 1.30 mg/dL 11/15/2019 3:52 PM EDT [facility] Albumin 4.7(H) 3.2 - 4.6 gm/dL 11/15/2019 3:52 PM EDT [facility] Total Protein 7.1 6.4 - 8.3 gm/dL 11/15/2019 3:52 PM EDT [facility] Bili Total 0.3 0.1 - 1.4 mg/dL 11/15/2019 3:52 PM EDT [facility] ALT 22 <=41 U/L 11/15/2019 3:52 PM EDT [facility] AST 20 <=40 U/L 11/15/2019 3:52 PM EDT [facility] Alk Phos 52 40 - 129 U/L 11/15/2019 3:52 PM EDT [facility] GFR Afr Am 62 >=60 mL/min/1.7 3 m2 11/15/2019 3:52 PM EDT [facility] GFR Non Afr Am 54(L) >=60 mL/min/1.7 3 m2 11/15/2019 3:52 PM EDT [facility] Comment: This estimated GFR was calculated [...] or muscle mass. Blood Venipuncture / Unknown 11/15/2019 10:56 AM EDT 11/15/2019 10:56 AM EDT Fili Sanchez MD CHEMISTRY ORDERABLES [facility] al Result [facility] [address] [facility] , [place] [address] [facility] [address] [place] [address] * (ABNORMAL) LIPID PANEL REFLEX (11/15/2019 10:56 AM EDT) [facility] Signature Cholesterol 131 <200 mg/dL 11/15/2019 4:19 PM EDT [facility] Comment: < 200 ?Desirable 200 - 239 ? Borderline High >= 240 ?High Triglyceride 187(H) <150 mg/dL 11/15/2019 4:19 PM EDT [facility] Comment: < 150 ? Normal 150 - 199 ?Borderline High 200 - 499 ?High ??>= 500 ? Very High HDL 36(L) >=40 mg/dL 11/15/2019 4:19 PM EDT [facility] Comment: ??> 60 ?Optimal 40 - 60 ?Acceptable ?? < 40 ?Low LDL Direct 62 <100 mg/dL 11/15/2019 4:19 PM EDT [facility] Non-HDL-C Calculated 95 <=129 mg/dL 11/15/2019 4:19 PM EDT [facility] Comment: <130 ?Desirable 130-159 Above Desirable 160-189 Borderline High 190-219 High >= 220 ??Very High Fasting Specimen? Yes None 020 4:19 PM EDT [facility] Blood Venipuncture / Unknown 11/15/2019 10:56 AM EDT 11/15/2019 10:56 AM EDT Fili Sanchez MD CHEMISTRY ORDERABLES Fin al Result [facility] [address] [facility], [place] [address] documented in this encounter Visit Diagnoses Diagnosis Uncontrolled diabetes mellitus with stage 3 chronic kidney disease, without long-term current use of insulin- Primary documented in this encounter Care Teams Injection Moulding Machine Operator Relationship Specialty Start Date End Date Aba Espinoza MD [address] [place] [address] PCP - General Family Medicine 07/27/16 Flii Sanchez MD [address] [facility] [address] [place] [address] Internal Medicine-Endocrinology, Diabetes & Metabolism 04/11/14 documented as of this encounter
--- OUTSIDE RECORDS SUMMARY | 2024-01-18 14:58 | XMS_ITS | Encounter Summary ---
Author Organization [place] [address] Care Team Providers Care Kiln Charger Name Role Phone Fili Sanchez MD Unavailable [phone] Aba Espinoza MD Primary Care Provider [phone] Reason for Visit * Reason Onset Date Comments Other 05/24/2019 to offer vide o visit Encounter Details Date Type Department Care Team (Late st Contact Info) Description 05/24/2019 [facility] [address] [facility] [address] [place] [address] Fili Sanchez MD [address] [facility] [address] [place] [phone] Other (LM to offer video visit) Social History Tobacco Use Types Packs/Day Years [...] Telephone Encounter - Sonali Don RMA - 05/24/2019 1:47 PM EDT [facility] for pt to see about changing the 06/12/19 appt to video visit. documented in this encounter Plan of Treatment Upcoming Encounters Date Type Department Care Team (Late st Contact Info) Description 04/26/2024 9:00 AM EDT Office Visit [facility] Nephrology [place] [address] [place] [address] Julio Silva MD [address] [place] [address] documented as of this encounter Visit Diagnoses Not on filedocumented in this encounter Care Teams Kiln Charger Relationship Specialty Start Date End Date Aba Espinoza MD [address] [place] [address] [place] [address] PCP - General Family Medicine 07/27/16 Fili Sanchez MD [address] [facility] [address] [place] [address] Internal Medicine-Endocrinology, Diabetes & Metabolism 04/11/14 documented as of this encounter
--- OUTSIDE RECORDS SUMMARY | 2024-01-18 14:58 | XMS_ITS | Encounter Summary ---
Author Organization [place] [address] Care Team Providers Care Network Control Operators Supervisor Name Role Phone Fili Sanchez MD Unavailable [phone] Aba Espinoza MD Primary Care Provider [phone] Encounter Details Date Type Department Care Team (Latest Contact Info) Description 02/22/2019 9:15 AM EST - 02/22/2019 11:59 PM [facility] Hospital Encounter COV XRAY [address] [place] [phone] Injury of toe on right foot, initial encounter Discharge Disposition: Home or Self Care Social [...] encounter Medications at Time of Discharge aspirin (ASPIRIN) 81 mg Oral Tablet, Chewable Take 1 Tab by mouth daily. 30 Tab 0 04/11/2014 escitalopram oxalate (LEXAPRO) 20 mg Oral Tablet Take by mouth daily. nitroGLYCERIN (NITROLINGUAL) 400 mcg/spray TL [place], Non-Aerosol Place 1 [place] under the tongue every 5 minutes as needed for Chest pain. sacubitriL-valsa rtan (ENTRESTO) 24-26 mg Oral Tablet Take 1 Tab by mouth 2 times daily. spironolactone (ALDACTONE) 25 mg Oral Tablet Take 25 mg by mouth daily. glipiZIDE (GLUCOTROL) 5 mg Oral Tablet Take 1 1/2 tab at breakfast and 1 1/2 tabs at supper 280 Tab 3 02/22/2019 0 metFORMIN (GLUCOPHAGE) 1,000 mg Oral Tablet TAKE 1 TABLET TWICE A DAY 180 Tab 3 08/01/2018 0 simvastatin (ZOCOR) 40 mg Oral Tablet TAKE 1 TABLET NIGHTLY 90 Tab 3 08/23/2018 0 SITagliptin (JANUVIA) 100 mg Oral Tablet Take 1 Tab by mouth daily. 90 Tab 1 02/22/2019 0 documented as of this encounter Discharge Disposition Disposition Code Departure Means Destination Home or Self Care documented in this encounter Plan of Treatment Upcoming Encounters Date Type Department Care Team (Late st Contact Info) Description 04/26/2024 9:00 AM EDT Office Visit [facility] Nephrology [place] [address] [facility] [address] [place] [address] Julio Silva MD [address] [place] [address] documented as of this encounter Procedures Procedure Name Priority Date/Time Associated Diagnosis Comments XR TOE RIGHT 2 + VW Routine 02/22/2019 9 :24 AM EST Injury of toe on right foot, initial encounter documented in this encounter Results * XR TOE RIGHT 2 + VW (02/22/2019 9:24 AM EST) Anatomical Region Laterality Modality Foot Radiographic Emma ging 02/22/2019 9:24 AM EST Impressions 02/22/2019 9:37 AM EST No acute osseous findings. - Narrative 02/22/2019 9:37 AM EST XR TOE RIGHT 2 + VW, ??02/22/2019 9:24 AM CLINICAL HISTORY: ??S99.921A-Unspecified injury of right foot, initial [id number] COMPARISON: ??None. PROCEDURE COMMENTS: Routine views per the ordered protocol. ?? FINDINGS: No acute fracture or malalignment. Mild degenerative changes of the first MTP joint. No soft tissue gas or radiopaque foreign body. Procedure Note Tad Moreno MD - 02/22/2019 XR TOE RIGHT 2 + VW, 02/22/2019 9:24 AM CLINICAL HISTORY: S99.921A-Unspecified injury of right foot, initial [id number] COMPARISON: None. PROCEDURE COMMENTS: Routine views per the ordered protocol. FINDINGS: No acute fracture or malalignment. Mild degenerative changes of the firstMTP joint. No soft tissue gas or radiopaque foreign body. IMPRESSION: No acute osseous findings. - Fili Sanchez MD IMG DIAGNOSTIC IMAGING O RDERABLES Final Result documented in this encounter Visit Diagnoses Diagnosis Injury of toe on right foot, initial encounter documented in this encounter Care Teams Network Control Operators Supervisor Relationship Specialty Start Date End Date Aba Espinoza MD [address] [place] [address] [place] [id number] PCP - General Family Medicine 07/27/16 Fili Sanchez MD [address] [address] Internal Medicine-Endocrinology, Diabetes & Metabolism 04/11/14 documented as of this encounter
--- OUTSIDE RECORDS SUMMARY | 2024-01-18 14:58 | XMS_ITS | Encounter Summary ---
Author Organization [place] [address] Care Team Providers Care Creping Machine Operator Helper Name Role Phone Fili Sanchez MD Unavailable [phone] Aba Espinoza MD Primary Care Provider [phone] Reason for Visit * Reason Comments Medication Refill Encounter Details Date Type Department Care Team (Late st Contact Info) Description 09/08/2019 Refill [facility] [place] [address] [facility] [address] [place] [phone] Fili Sanchez MD [address] [phone] Medication Refill Social History Tobacco [...] Date glipiZIDE (GLUCOTROL) 5 mg Oral Tablet TAKE 1 TABLET AT BREAKFAST AND TAKE 1 AND 1/2 TABLETS AT SUPPER (NEW DOSE) 225 Tab 1 09/10/2019 1 documented in this encounter Plan of Treatment Upcoming Encounters Date Type Department Care Team (Late st Contact Info) Description 04/26/2024 9:00 AM EDT Office Visit [facility] Nephrology [place] [address] [place] [address] Julio Silva MD [address] [facility] [address] [place] [address] documented as of this encounter Visit Diagnoses Not on filedocumented in this encounter Discontinued Medications Medication Sig Discontinue Reason Start Date End Da te glipiZIDE (GLUCOTROL) 5 mg Oral Tablet Take 1 1/2 tab at breakfast and 1 1/2 tabs at supper 02/22/2019 09/10/2019 documented as of this encounter Care Teams Creping Machine Operator Helper Relationship Specialty Start Date End Date Aba Espinoza MD [address] [place] [phone] PCP - General Family Medicine 07/27/16 Fili Sanchez MD [address] [facility] [address] [place] [address] Internal Medicine-Endocrinology, Diabetes & Metabolism 04/11/14 documented as of this encounter
--- OUTSIDE RECORDS SUMMARY | 2024-01-18 14:58 | XMS_ITS | Encounter Summary ---
Author Organization [place] [address] Care Team Providers Care Shoulder Joiner Name Role Phone Fili Sanchez MD Unavailable [phone] Aba Espinoza MD Primary Care Provider [phone] Reason for Visit * Reason Comments Diabetes type 2 * Consultation (Routine) - Closed Specialty Diagnoses / Procedures Referred By Kadie casillas Referred To Contact Internal Medicine-Endocrinology, Diabetes & Metabolism / Diabetes Services Diagnoses DM TYPE 2 Aba Espinoza MD [address] [place] [address] [place] [address] Phone: tel: fax: Fili Sanchez MD [address] [place] [phone] Phone: tel: fax: Referral ID Status Reason Start Date Expiration Date Visits Re quested Visits Authorized [id number] Closed 02/22/2019 02/22/2020 99 99 Encounter Details Date Type Department Care Team (Late st Contact Info) Description 02/22/2019 8:20 AM EST [facility] [place] [address] [place] [phone] Fili Sanchez MD [address] [place] [phone] Uncontrolled diabetes mellitus with stage 3 chronic kidney disease, without long-term current use of insulin (HCC) (Primary Dx); Dyslipidemia; Hypertension associated with diabetes (HCC) (HCC); Injury of toe on right foot, initial encounter Social History Tobacco Use Types Packs/Day [...] Sign Reading Time Taken Comments Blood Pressure 89/61 02/22/2019 8:18 AM EST Pulse 89 02/22/2019 8:18 AM EST Temperature - - Respiratory Rate 15 02/22/2019 8:18 AM EST Oxygen Saturation - - Inhaled Oxygen Concentration - - Weight 123.6 kg (272 lb 8 oz) 02/22/2019 8:18 AM EST Height 186.1 cm (6' 1.27 ) 02/22/2019 8:18 AM ES T Body Mass Index 35.69 02/22/2019 8:18 AM EST documented in this encounter Ordered Prescriptions Prescription Sig Dispense Quantity Refills Last Filled Start Date End Date glipiZIDE (GLUCOTROL) 5 mg Oral Tablet Take 1 1/2 tab at breakfast and 1 1/2 tabs at supper 280 Tab 3 02/22/2019 0 SITagliptin (JANUVIA) 100 mg Oral Tablet Take 1 Tab by mouth daily. 90 Tab 1 02/22/2019 0 ACCU-CHEK GUIDE Misc Strip 1 Each by Misc.(Non-Drug; Combo Route) route 2 times daily. E11.65 200 Strip 3 02/22/2019 1 documented in this encounter Progress Notes * Fili Sanchez MD - 02/22/2019 8:20 AM EST Pt ID: Dane Ray is a 64 y.o. male who presents today for follow up Diabetes Mellitus since 2003. Chief Complaint Patient presents with ??? Diabetes type 2 Diabetes Associated symptoms include arthralgias and a sore throat. He is here for follow up. He was last seen in Mar. He is here today for BG review. Current diabetes regimen includes Metformin 1000 mg twice a day. Glipizide 5-7.5 mg twice a day. Januvia 100 mg a day. Feels sugars are coming down some. Meter downloaded and reviewed. Checking 1- 2x/day. Average 146 (107-191). Denies lows. States he typically only eats once a day. May have a small snack. He is trying to be more active. 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 Following with cardiology at [facility] and goes to [facility] every 6 months. States he is eligible for LVAD but symptoms are stable so holding off. May eventually need transplant. He quit smoking. Review of Systems Constitutional: Positive for appetite change and unexpected weight change. HENT: Positive for sore throat. Eyes: Negative. Respiratory: Positive for shortness of breath (on exertion). Gastrointestinal: Positive for constipation. Musculoskeletal: Positive for arthralgias. Objective Objective: Vitals: 02/22/19 0818 BP: (!) 89/61 BP Location: Left arm Pulse: 89 Resp: 15 Weight: 272 lb 8 oz (123.6 kg) Height: 6' 1.27 (1.861 m) Physical Exam Vitals signs and nursing note reviewed. Constitutional: General: He is not in acute distress. Appearance: He is well-developed. He is not diaphoretic. HENT: Head: Normocephalic and atraumatic. Eyes: General: Right eye: No discharge. Left eye: No discharge. Conjunctiva/sclera: Conjunctivae normal. Neck: Musculoskeletal: Neck supple. Thyroid: No thyromegaly. Trachea: No tracheal deviation. Cardiovascular: Rate and Rhythm: Normal rate and regular rhythm. Heart sounds: Normal heart sounds. No murmur. No friction rub. No gallop. Pulmonary: Effort: Pulmonary effort is normal. No respiratory distress. Breath sounds: Normal breath sounds. No wheezing or rales. Musculoskeletal: Normal range of motion. Lymphadenopathy: Cervical: No cervical adenopathy. Skin: General: Skin is warm and dry. Neurological: Mental Status: He is alert and oriented to person, place, and time. Laboratory: Lab Results Component Value Date HGBA1C 7.6 (H) 02/21/2019 Lab Results Component Value Date CREATININE 1.60 (H) 02/21/2019 No results found for: TSHREFLEX Lab Results Component Value Date ALT 17 02/21/2019 AST 17 02/21/2019 ALKPHOS 54 02/21/2019 Lab Results Component Value Date URINEMICROAL 32.6 04/05/2018 Lab Results Component Value Date CHOLESTEROL 163 02/21/2019 Lab Results Component Value Date HDL 45 02/21/2019 Lab Results Component Value Date LDLCALC 89 02/21/2019 Lab Results Component Value Date TRIG 146 02/21/2019 No results found for: CHOLHDL Assessment and Plan: 1. Diabetes Mellitus Type 2 UnControlled Hba1c improved Plan: -Continue metformin and januvia. -Increase Glipizide to one and half tab twice a day -Sugars improving but remain above goal.-Discussed changing to GLP-1. He would like to avoid due tocost. Will increase glipizide to 7.5 mg with breakfast and supper. Discussed risk of lows. Enc to reduce snacking at night. -Enc continued lifestyle changes to aid in weight loss. -unable to use actos due to HF. -check fingerstick 2 times a day.Diabetes Health Maintance: Eye exam: Advised yearly eye exam. States last exam in 2018 in [place]. Will call for report. Foot exam: 05/2018 Micro-albumin: positive 03/2018 MATT/ARB:Losartan ASA: 81 mg once a day. Smoking: former smoker Obesity: 2. HTN: BP a little low. States cardiology wants BP low. On entresto 3. Dyslipidemia: currently taking simvastatin 40 mg daily. Goal LDL of 70. At goal. 4. CAD with low EF Follow up with cardiology at [place] and at [facility] . 5. Big toe on the right side is swollen and very tender to touch ? Gout Check uric acid Xray of the right toe. Patient Instructions Glipizide 1 and half tab twice a day with meals. X Ray today, 1. Uncontrolled diabetes mellitus with stage 3 chronic kidney disease, without long-term current use of insulin (HCC) 2. Dyslipidemia 3. Hypertension associated with diabetes (HCC) 4. Injury of toe on right foot, initial encounter Return in about 4 months (around 06/23/2019). documented in this encounter Miscellaneous Notes * Patient Instructions - Fili Sanchez MD - 02/22/2019 8:20 AM EST Glipizide 1 and half tab twice a day with meals. X Ray today, documented in this encounter Plan of Treatment Upcoming Encounters Date Type Department Care Team (Late st Contact Info) Description 04/26/2024 9:00 AM EDT Office Visit [facility] Nephrology [place] [address] [place] [address] Julio Silva MD [address] [place] [address] documented as of this encounter Results * MICROALBUMIN/CREATININE RATIO URINE (06/11/2019 11:11 AM EDT) Urine Microalb 30.0 mg/L 06/11/2019 1:58 PM EDT [facility] Urine Creatinine 195.8 mg/dL 06/11/2019 1:58 PM EDT [facility] Ur Microalb/Creat 15 0 - 30 mg/g 06/11/2019 1:58 PM EDT [facility] Urine 06/11/2019 11:1 1 AM EDT 06/11/2019 11:11 AM EDT Fili Sanchez MD URINE ORDERABLES Final R esult [facility] [address] [facility] , [place] [address] * (ABNORMAL) HEMOGLOBIN A1C (06/11/2019 9:35 AM EDT) Hgb A1C 7.2(H) 4.2 - 5.6 % 06/11/2019 1:38 PM EDT [facility] Est. Avg Glucose 160 mg/dL 06/11/2019 1:38 PM EDT [facility] Blood Venipuncture / Unknown 06/11/2019 9:35 AM EDT 06/11/2019 9:35 AM EDT Narrative [facility] - 06/11/2019 1:38 PM EDT REFERENCE RANGE: Normal: 4.0-5.6% Pre-diabetes: 5.7-6.4% Provisional diagnosis of diabetes: >6.4% Hgb F>10% and anything which shortens red cell survival, such as hemolytic anemia, or unstable hemoglobin variants such as HbSS, HbSC, or HbCC, will lower the HbA1c value associated with a given level of glycemic control. ? Fili Sanchez MD CHEMISTRY ORDERABLES [facility] al Result [facility] [address] [facility] , [place] [address] * (ABNORMAL) COMPREHENSIVE METABOLIC PANEL (06/11/2019 9:35 AM EDT) Sodium 139 136 - 145 mmol/L 06/11/2019 1:43 PM EDT [facility] Potassium 5.2(H) 3.5 - 5.0 mmol/L 06/11/2019 1:43 PM EDT [facility] Chloride 101 98 - 107 mmol/L 06/11/2019 1:43 PM EDT [facility] Total CO2 26 22 - 29 mmol/L 06/11/2019 1:43 PM EDT [facility] Anion Gap 12 7 - 16 mmol/L 06/11/2019 1:43 PM EDT [facility] Calcium 9.5 8.8 - 10.4 mg/dL 06/11/2019 1:43 PM EDT [facility] Glucose Lvl 173(H) 82 - 100 mg/dL 06/11/2019 1:43 PM EDT [facility] BUN 25(H) 8 - 23 mg/dL 06/11/2019 1:43 PM EDT [facility], [facility] Creatinine 1.51(H) 0.67 - 1.30 mg/dL 06/11/2019 1:43 PM EDT [facility], [facility] Albumin 4.4 3.2 - 4.6 gm/dL 06/11/2019 1:43 PM EDT [facility] Total Protein 7.0 6.4 - 8.3 gm/dL 06/11/2019 1:43 PM EDT [facility] Bili Total 0.3 0.1 - 1.4 mg/dL 06/11/2019 1:43 PM EDT [facility] ALT 19 <=41 U/L 06/11/2019 1:43 PM EDT [facility] AST 20 <=40 U/L 06/11/2019 1:43 PM EDT [facility] Alk Phos 55 40 - 129 U/L 06/11/2019 1:43 PM EDT [facility] GFR Afr Am 54(L) >=60 mL/min/1.7 3 m2 06/11/2019 1:43 PM EDT [facility] GFR Non Afr Am 47(L) >=60 mL/min/1.7 3 m2 06/11/2019 1:43 PM EDT [facility] Comment: This estimated GFR was calculated [...] or muscle mass. Blood Venipuncture / Unknown 06/11/2019 9:35 AM EDT 06/11/2019 9:35 AM EDT Fili Sanchez MD CHEMISTRY ORDERABLES Fin al Result [facility] [address] [facility] , [address] [place], [place] [id number] [address] [address] * LIPID PANEL REFLEX (06/11/2019 9:35 AM EDT) Cholesterol 131 <200 mg/dL 06/11/2019 1:43 PM EDT [facility] Comment: < 200 ?Desirable 200 - 239 ? Borderline High >= 240 ?High Triglyceride 130 <150 mg/dL 06/11/2019 1:43 PM EDT [facility] Comment: < 150 ? Normal 150 - 199 ?Borderline High 200 - 499 ?High ??>= 500 ? Very High HDL 43 >=40 mg/dL 06/11/2019 1:43 PM EDT [facility] Comment: ??> 60 ?Optimal 40 - 60 ?Acceptable ?? < 40 ?Low LDL Calculated 62 <100 mg/dL 06/11/2019 1:43 PM EDT [facility] Non-HDL-C Calculated 88 <=129 mg/dL 06/11/2019 1:43 PM EDT [facility] Comment: <130 ?Desirable 130-159 Above Desirable 160-189 Borderline High 190-219 High >= 220 ??Very High Fasting Specimen? Yes None 020 1:43 PM EDT [facility] Blood Venipuncture / Unknown 06/11/2019 9:35 AM EDT 06/11/2019 9:35 AM EDT Fili Sanchez MD CHEMISTRY ORDERABLES Fin al Result [facility] [address] [facility] , [place] [address] * XR TOE RIGHT 2 + VW (02/22/2019 9:24 AM EST) Anatomical Region Laterality Modality Foot Radiographic Emma ging 02/22/2019 9:24 AM EST Impressions 02/22/2019 9:37 AM EST No acute osseous findings. - Narrative 02/22/2019 9:37 AM EST XR TOE RIGHT 2 + VW, ??02/22/2019 9:24 AM CLINICAL HISTORY: ??S99.921A-Unspecified injury of right foot, initial [id number] COMPARISON: ??None. PROCEDURE COMMENTS: Routine views per the ordered protocol. ?? FINDINGS: No acute fracture or malalignment. Mild degenerative changes of the first MTP joint. No soft tissue gas or radiopaque foreign body. Procedure Note Tad Moreno MD - 02/22/2019 XR TOE RIGHT 2 + VW, 02/22/2019 9:24 AM CLINICAL HISTORY: S99.921A-Unspecified injury of right foot, initial [id number] COMPARISON: None. PROCEDURE COMMENTS: Routine views per the ordered protocol. FINDINGS: No acute fracture or malalignment. Mild degenerative changes of the firstMTP joint. No soft tissue gas or radiopaque foreign body. IMPRESSION: No acute osseous findings. - Fili Sanchez MD IMG DIAGNOSTIC IMAGING O RDERABLES Final Result * (ABNORMAL) URIC ACID (02/21/2019 12:33 PM EST) Uric Acid 10.8(H) 3.4 - 7.0 mg/dL 02/22/2019 10:19 AM EST [facility] Blood Venipuncture / Unknown 02/21/2019 12:33 PM EST 02/21/2019 12:33 PM EST Fili Sanchez MD CHEMISTRY ORDERABLES Fin al Result [facility] [address] [place] [address] [facility] [address] [facility], [place] [address] documented in this encounter Visit Diagnoses Diagnosis Uncontrolled diabetes mellitus with stage 3 chronic kidney disease, without long-term current use of insulin- Primary Dyslipidemia Other and unspecified hyperlipidemia Hypertension associated with diabetes (HCC) Type II or unspecified type diabetes mellitus with other specified manifestations, not stated as uncontrolled Injury of toe on right foot, initial encounter Injury of toe on right foot, initial encounter documented in this encounter Discontinued Medications Medication Sig Discontinue Reason Start Date End Da te sitaGLIPtin (JANUVIA) 100 mg Oral Tablet Take 1 Tab by mouth daily. Alternate therapy 07/18/2018 02/22/2019 ACCU-CHEK GUIDE Misc Strip 1 Each by Misc.(Non-Drug; Combo Route) route 2 times daily. E11.65 Reorder 04/07/2018 02/22/2019 JANUVIA 100 mg Oral Tablet TAKE 1 TABLET BY MOUTH DAILY. Reorder 01/15/2019 02/22/2019 glipiZIDE (GLUCOTROL) 5 mg Oral Tablet Take 1 tab at breakfast and 1 1/2 tabs at supper 08/01/2018 02/22/2019 documented as of this encounter Care Teams Shoulder Joiner Relationship Specialty Start Date End Date Aba Espinoza MD [address] [place] [address] PCP - General Family Medicine 07/27/16 Fili Sanchez MD [address] [address] Internal Medicine-Endocrinology, Diabetes & Metabolism 04/11/14 documented as of this encounter
--- OUTSIDE RECORDS SUMMARY | 2024-01-18 14:58 | XMS_ITS | Encounter Summary ---
Author Organization [place] [address] Care Team Providers Care Can Coverer Name Role Phone Fili Sanchez MD Unavailable [phone] Aba Espinoza MD Primary Care Provider [phone] Reason for Visit * Reason Comments Diabetes * Consultation (Routine) - Closed Specialty Diagnoses / Procedures Referred By Kadie casillas Referred To Contact Internal Medicine-Endocrinology, Diabetes & Metabolism / Diabetes Services Diagnoses Diabetes mellitus (HCC) fu dm ty 2 - patient called for appt Procedures DM FOLLOW UP Aba Espinoza MD [address] [place] [address] Phone: tel: fax: Fili Sanchez MD [address] [place] [address] Phone: tel: fax: Referral ID Status Reason Start Date Expiration Date Visits Re quested Visits Authorized [id number] Closed 07/20/2017 07/20/2018 99 99 Encounter Details Date Type Department Care Team (Late st Contact Info) Description 06/01/2018 8:00 AM EDT [facility] [place] [address] [place] [phone] Vonnie Hicks APRN [address] [place] [address] Uncontrolled type 2 diabetes mellitus without complication, [...] Sign Reading Time Taken Comments Blood Pressure 88/64 06/01/2018 7:54 AM EDT Pulse 87 06/01/2018 7:54 AM EDT Temperature - - Respiratory Rate 16 06/01/2018 7:54 AM EDT Oxygen Saturation - - Inhaled Oxygen Concentration - - Weight 122.7 kg (270 lb 9.6 oz) 06/01/2018 7:54 AM EDT Height 186.1 cm (6' 1.27 ) 06/01/2018 7:54 AM ED T Body Mass Index 35.44 06/01/2018 7:54 AM EDT documented in this encounter Progress Notes * Vonnie Hicks APRN - 06/01/2018 8:00 AM EDT Pt ID: Dane Ray is a 64 y.o. male who presents today for follow up Diabetes Mellitus since 2004. Chief Complaint Patient presents with ??? Diabetes Diabetes Associated symptoms include arthralgias, chest pain, coughing and a sore throat. He is here for follow up. He was last seen in Mar. He is here today for BG review. Current diabetes regimen includes Metformin 1000 mg twice a day. Glipizide 5 mg twice a day. Januvia 100 mg a day. Feels sugars are coming down some. Meter downloaded and reviewed. Checking 1- 2x/day. Average 153 (107-191). Denies lows. He is just getting back from vacation. States he typically only eats once a day. May have a small snack. Weight is down 9 lb from Mar. He is trying to be more active. 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 Following with cardiology at [facility] and goes to [facility] every 6 months. States he is eligible for LVAD but symptoms are stable so holding off. May eventually need transplant. He quit smoking. Review of Systems Constitutional: Positive for appetite change and unexpected weight change. HENT: Positive for sore throat. Eyes: Negative. Respiratory: Positive for cough, chest tightness and shortness of breath (on exertion). Cardiovascular: Positive for chest pain. Gastrointestinal: Positive for constipation. Musculoskeletal: Positive for arthralgias. Objective Objective: Vitals: 06/01/18 0754 BP: (!) 88/64 Pulse: 87 Resp: 16 Weight: 270 lb 9.6 oz (122.7 kg) Height: 6' 1.27 (1.861 m) Physical Exam Constitutional: He is oriented to person, place, and time. He appears well- developed and well-nourished. No distress. HENT: Head: Normocephalic and atraumatic. Eyes: Conjunctivae and EOM are normal. Right eye exhibits no discharge. Left eye exhibits no discharge. Neck: Neck supple. No tracheal deviation present. No thyromegaly present. Cardiovascular: Normal rate, regular rhythm, normal heart sounds and intact distal pulses. Exam reveals no gallop and no friction rub. No murmur heard. Pulmonary/Chest: Effort normal and breath sounds normal. No respiratory distress. He has no wheezes. He has no rales. Musculoskeletal: Normal range of motion. He exhibits edema ( trace). Lymphadenopathy: He has no cervical adenopathy. Neurological: He is alert and oriented to person, place, and time. Skin: Skin is warm and dry. He is not diaphoretic. Psychiatric: He has a normal mood and affect. Nursing note and vitals reviewed. Laboratory: Lab Results Component Value Date HGBA1C [...] decreased physical activity and stopping Januvia. Plan: -Continue metformin and januvia. He is concerned about ongoing cost of januvia. -Sugars improving but remain above goal. Highest in the mornings, usually due to snacking at night. -Discussed changing to GLP-1. He would like to avoid due to cost. Will increase glipizide to 7.5 mgwith supper. Discussed risk of lows. Enc to reduce snacking at night. -Enc continued lifestyle changes to aid in weight loss. -unable to use actos due to HF. -check fingerstick 2 times a day.Diabetes Health Maintance: Eye exam: Advised yearly eye exam. States last exam in 2018 in [place]. Will call for report. Foot exam: 05/2018 Micro-albumin: positive 03/2018 MATT/ARB:Losartan ASA: 81 mg once a day. Smoking: former smoker Obesity: 2. HTN: BP a little low. States cardiology wants BP low. On entresto 3. Dyslipidemia: currently taking simvastatin 40 mg daily. Goal LDL of 70. At goal. 4. CAD with low EF Follow up with cardiology at [place] and at [facility] . Follow up [address] Sanchez. Labs prior. There are no Patient Instructions on file for this visit. 1. Uncontrolled type 2 diabetes mellitus without complication, without long-term current use of insulin (HCC) 2. Dyslipidemia 3. Hypertension associated with diabetes (HCC) 4. Severe obesity (BMI 35.0-39.9) with comorbidity (HCC) * Janee Bedoya MA - 06/01/2018 8:00 AM EDT Patient tests twice daily. Pharmacy verified. Meter downloaded. Per Vonnie gave patient samples of Januvia 100mg. Documented. documented in this encounter Plan of Treatment Upcoming Encounters Date Type Department Care Team (Late st Contact Info) Description 04/26/2024 9:00 AM EDT Office Visit [facility] Nephrology [place] [address] [place] [address] Julio Silva MD [address] [place] [address] documented as of this encounter Results * LIPID PANEL REFLEX (02/21/2019 12:33 PM EST) Cholesterol 163 <=200 mg/dL 02/21/2019 5:32 PM EST [facility] Comment: < 200 ?Desirable 200 - 239 ? Borderline High >= 240 ?High Triglyceride 146 <=150 mg/dL 02/21/2019 5:32 PM EST [facility] Comment: < 150 ? Normal 150 - 199 ?Borderline High 200 - 499 ?High ??>= 500 ? Very High HDL 45 >=40 mg/dL 02/21/2019 5:32 PM EST [facility] Comment: ??> 60 ?Optimal 40 - 60 ?Acceptable ?? < 40 ?Low LDL Calculated 89 <=100 mg/dL 02/21/2019 5:32 PM EST [facility] Non-HDL-C Calculated 118 <=129 mg/dL 02/21/2019 5:32 PM EST [facility] Comment: <130 ?Desirable 130-159 Above Desirable 160-189 Borderline High 190-219 High >= 220 ??Very High Fasting Specimen? Yes None 020 5:32 PM EST [facility] Blood Venipuncture / Unknown 02/21/2019 12:33 PM EST 02/21/2019 12:33 PM EST Vonnie Hicks APRN CHEMISTRY ORDERABLES Final Result Performing Organization Address [facility] de Phone Number [facility] [address] , [address] [place] [phone] * (ABNORMAL) HEMOGLOBIN A1C (02/21/2019 12:33 PM EST) Hgb A1C 7.6(H) 4.2 - 5.6 % 02/21/2019 5:04 PM EST [facility] Est. Avg Glucose 171 mg/dL 02/21/2019 5:04 PM EST [facility] Blood Venipuncture / Unknown 02/21/2019 12:33 PM EST 02/21/2019 12:33 PM EST Narrative [facility] - 02/21/2019 5:04 PM EST REFERENCE RANGE: Normal: 4.0-5.6% Pre-diabetes: 5.7-6.4% Provisional diagnosis of diabetes: >6.4% Hgb F>10% and anything which shortens red cell survival, such as hemolytic anemia, or unstable hemoglobin variants such as HbSS, HbSC, or HbCC, will lower the HbA1c value associated with a given level of glycemic control. ? Vonnie Hicks APRN CHEMISTRY ORDERABLES Final Result Performing Organization Address [facility] de Phone Number [facility], [address] , [place] [address] * (ABNORMAL) COMPREHENSIVE METABOLIC PANEL (02/21/2019 12:33 PM EST) Sodium 138 136 - 145 mmol/L 02/21/2019 5:32 PM EST [facility] Potassium 4.2 3.5 - 5.0 mmol/L 02/21/2019 5:32 PM EST [facility] Chloride 97(L) 98 - 107 mmol/L 02/21/2019 5:32 PM EST [facility] Total CO2 27 22 - 29 mmol/L 02/21/2019 5:32 PM EST [facility] Anion Gap 14 7 - 16 mmol/L 02/21/2019 5:32 PM EST [facility] Calcium 9.4 8.8 - 10.4 mg/dL 02/21/2019 5:32 PM EST [facility] Glucose Lvl 166(H) 82 - 100 mg/dL 02/21/2019 5:32 PM EST [facility] BUN 30(H) 8 - 23 mg/dL 02/21/2019 5:32 PM EST [facility] Creatinine 1.60(H) 0.67 - 1.30 mg/dL 02/21/2019 5:32 PM EST [facility] Albumin 4.4 3.2 - 4.6 gm/dL 02/21/2019 5:32 PM EST [facility] Total Protein 7.6 6.4 - 8.3 gm/dL 02/21/2019 5:32 PM EST [facility] Bili Total 0.5 0.1 - 1.4 mg/dL 02/21/2019 5:32 PM EST [facility] ALT 17 <=41 IU/L 02/21/2019 5:32 PM EST [facility] AST 17 <=40 IU/L 02/21/2019 5:32 PM EST [facility] Alk Phos 54 40 - 129 IU/L 02/21/2019 5:32 PM EST [facility] GFR Afr Am 51(L) >=60 mL/min/1.7 3 m2 02/21/2019 5:32 PM [facility] GFR Non Afr Am 44(L) >=60 mL/min/1.7 3 m2 02/21/2019 5:32 PM [facility] Comment: This estimated GFR was [...] or muscle mass. Blood Venipuncture / Unknown 02/21/2019 12:33 PM EST 02/21/2019 12:33 PM EST Vonnie Hicks SOLE LEVELING MACHINE OPERATOR CHEMISTRY ORDERABLES Final Result [facility] [address] [facility], [place] [address] [facility] [address] [place], [place] [id number] documented in this encounter Visit Diagnoses Diagnosis Uncontrolled type 2 diabetes mellitus without complication, without long-term current use of insulin- Primary Dyslipidemia Other and unspecified hyperlipidemia Hypertension associated with diabetes (HCC) Type II or unspecified type diabetes mellitus with other specified manifestations, not stated as uncontrolled Severe obesity (BMI 35.0-39.9) with comorbidity (HCC) documented in this encounter Discontinued Medications Medication Sig Discontinue Reason Start Date End Da te nitroGLYCERIN (NITROLINGUAL) 400 mcg/spray TL [place], Non-Aerosol Place under the tongue. DELETE-Duplicate 10/28/2017 06/01/2018 documented as of this encounter Historical Medications * This list may reflect changes made after this encounter. nitroGLYCERIN (NITROLINGUAL) 400 mcg/spray TL [place], Non-Aerosol Place 1 Suches under the tongue every 5 minutes as needed for Chest pain. nitroGLYCERIN (NITROLINGUAL) 400 mcg/spray TL [place], Non-Aerosol Place under the tongue. 10/28/2017 06/01/2018 added in this encounter Care Teams Can Coverer Relationship Specialty Start Date End Date Aba Espinoza MD [address] [place] [id number] PCP - General Family Medicine 07/27/16 Fili Sanchez MD [address] [facility] [address] [place] [address] Internal Medicine-Endocrinology, Diabetes & Metabolism 04/11/14 documented as of this encounter
--- OUTSIDE RECORDS SUMMARY | 2024-01-18 14:58 | XMS_ITS | Encounter Summary ---
Author Organization [place] [address] Care Team Providers Care Warehouse Shipping Supervisor Name Role Phone Fili Sanchez MD Unavailable [phone] Aba Espinoza MD Primary Care Provider [phone] Encounter Details Date Type Department Care Team (Latest Contact Info) Description 07/24/2019 Travel Social History Tobacco Use Types Packs/Day [...] [facility] Nephrology [place] [address] [facility] [place] [address] Julio Silva MD [address] [place] [address] documented as of this encounter Visit Diagnoses Not on filedocumented in this encounter Care Teams Warehouse Shipping Supervisor Relationship Specialty Start Date End Date Aba Espinoza MD [address] [place] [address] PCP - General Family Medicine 07/27/16 Fili Sanchez MD [address] [facility] [address] [place] [address] Internal Medicine-Endocrinology, Diabetes & Metabolism 04/11/14 documented as of this encounter
--- OUTSIDE RECORDS SUMMARY | 2024-01-18 14:58 | XMS_ITS | Encounter Summary ---
Author Organization [place] [address] Care Team Providers Care Desktop Publisher Name Role Phone Fili Sanchez MD Unavailable [phone] Aba Espinoza MD Primary Care Provider [phone] Encounter Details Date Type Department Care Team (Latest Contact Info) Description 04/05/2018 4:30 PM EST - 04/05/2018 11:59 PM [facility] Hospital Encounter [facility] [address] [place] [address] Uncontrolled type 2 diabetes mellitus [...] mg Oral Tablet Take by mouth daily. sacubitriL-valsart an (ENTRESTO) 24-26 mg Oral Tablet Take 1 Tab by mouth 2 times daily. spironolactone (ALDACTONE) 25 mg Oral Tablet Take 25 mg by mouth daily. documented as of this encounter Discharge Disposition Disposition Code Departure Means Destination Home or Self Care documented in this encounter Plan of Treatment Upcoming Encounters Date Type Department Care Team (Late st Contact Info) Description 04/26/2024 9:00 AM EDT Office Visit [facility] Nephrology [place] [address] [place] [address] Julio Silva MD [address] [place] [address] documented as of this encounter Procedures Procedure Name Priority Date/Time Associated Diagnosis Comments LIPID PANEL REFLEX Routine 04/05/2018 4: 48 PM EST Uncontrolled type 2 diabetes mellitus without complication, without long-term current use of insulin (HCC) MICROALBUMIN/CREATININ E RATIO URINE Routine 04/05/2018 4:48 PM EST Uncontrolled type 2 diabetes mellitus without complication, without long-term current use of insulin (HCC) THYROID STIMULATING HORMONE Routine 04/05/2018 4:48 PM EST Uncontrolled type 2 diabetes mellitus without complication, without long-term current use of insulin (HCC) HEMOGLOBIN A1C Routine 04/05/2018 4:48 PM EST Uncontrolled type 2 diabetes mellitus without complication, without long-term current use of insulin (HCC) COMPREHENSIVE METABOLIC PANEL Routine 04/05/2018 4:48 PM EST Uncontrolled type 2 diabetes mellitus without complication, without long-term current use of insulin (HCC) documented in this encounter Results * THYROID STIMULATING HORMONE (04/05/2018 4:48 PM EST) TSH 2.380 0.270 - 4.200 mcIU/mL 04/07/2018 9:48 AM EST [facility] Blood Venipuncture / Unknown 04/05/2018 4:48 PM EST 04/05/2018 4:48 PM EST Narrative [facility] [employer] - 04/07/2018 9:48 AM EST Ingestion of pratik doses of biotin (>5 mg/day) taken within 8 hours of drawing blood sample can interfere with this immunoassay test. Fili Sanchez MD CHEMISTRY ORDERABLES Fin al Result Performing Organization Address [facility] de Phone Number [facility] [address] , [place] [address] * (ABNORMAL) MICROALBUMIN/CREATININE RATIO URINE (04/05/2018 4:48 PM EST) Urine Microalb 32.6 mg/L 04/05/2018 8:28 PM EST [facility] Urine Creatinine 60.0 mg/dL 04/05/2018 8:28 PM EST [facility] [employer] [employer] Ur Microalb/Creat 54(H) 0 - 30 mg/g 04/05/2018 8:28 PM EST [facility] Urine 04/05/2018 4:48 PM EST 04/05/2018 4:48 PM EST Fili Sanchez MD URINE ORDERABLES Final R esult Performing Organization Address [facility] Phone Number [facility] [address] , [place] [address] * (ABNORMAL) HEMOGLOBIN A1C (04/05/2018 4:48 PM EST) Hgb A1C 8.2(H) 4.2 - 5.6 % 04/05/2018 8:13 PM EST [facility] [facility] Est. Avg Glucose 189 mg/dL 04/05/2018 8:13 PM EST [facility] [employer] [employer] Blood Venipuncture / Unknown 04/05/2018 4:48 PM EST 04/05/2018 4:48 PM EST Narrative [facility] - 04/05/2018 8:13 PM EST REFERENCE RANGE: Normal: 4.0-5.6% Pre-diabetes: [...] al Result [facility] [address] [facility] , [place] [address] * (ABNORMAL) COMPREHENSIVE METABOLIC PANEL (04/05/2018 4:48 PM EST) Sodium 141 136 - 145 mmol/L 04/05/2018 8:20 PM EST [facility] Potassium 4.3 3.5 - 5.0 mmol/L 04/05/2018 8:20 PM EST [facility] Chloride 96(L) 98 - 107 mmol/L 04/05/2018 8:20 PM EST [facility] Total CO2 29 22 - 29 mmol/L 04/05/2018 8:20 PM EST [facility] Anion Gap 16 7 - 16 mmol/L 04/05/2018 8:20 PM EST [facility] Calcium 9.8 8.8 - 10.2 mg/dL 04/05/2018 8:20 PM EST [facility] Glucose Lvl 140(H) 82 - 100 mg/dL 04/05/2018 8:20 PM EST [facility] BUN 31(H) 8 - 23 mg/dL 04/05/2018 8:20 PM EST [facility] Creatinine 1.49(H) 0.67 - 1.30 mg/dL 04/05/2018 8:20 PM EST [facility] Albumin 4.6 3.2 - 4.6 gm/dL 04/05/2018 8:20 PM EST [facility] Total Protein 7.6 6.4 - 8.3 gm/dL 04/05/2018 8:20 PM EST [facility] Bili Total 0.3 0.1 - 1.4 mg/dL 04/05/2018 8:20 PM EST [facility] ALT 26 <=41 IU/L 04/05/2018 8:20 PM EST [facility], [facility] AST 26 <=40 IU/L 04/05/2018 8:20 PM EST [facility] [employer], [facility] Alk Phos 49 40 - 129 IU/L 04/05/2018 8:20 PM EST [facility] GFR Afr Am 56(L) >=60 mL/min/1.7 3 m2 04/05/2018 8:20 PM EST [facility] GFR Non Afr Am 48(L) >=60 mL/min/1.7 3 m2 04/05/2018 8:20 PM EST [facility] Comment: This estimated GFR was [...] or muscle mass. Blood Venipuncture / Unknown 04/05/2018 4:48 PM EST 04/05/2018 4:48 PM EST Fili Sanchez MD CHEMISTRY ORDERABLES Fin al Result Performing Organization Address [facility]/State/ZIP Co de Phone Number [facility] [employer] [address] [facility], [place] [address] [facility] [address] [place] [address] * (ABNORMAL) LIPID PANEL REFLEX (04/05/2018 4:48 PM EST) Cholesterol 155 <=200 mg/dL 04/05/2018 8:20 PM EST [facility] [employer] Comment: < 200 ?Desirable 200 - 239 ? Borderline High >= 240 ?High Triglyceride 221(H) <=150 mg/dL 04/05/2018 8:20 PM EST [facility] Comment: < 150 ? Normal 150 - 199 ?Borderline High 200 - 499 ?High ??>= 500 ? Very High HDL 43 >=40 mg/dL 04/05/2018 8:20 PM EST [facility] Comment: ??> 60 ?Optimal 40 - 60 ?Acceptable ?? < 40 ?Low LDL Calculated 68 <=100 mg/dL 04/05/2018 8:20 PM EST [facility] Non-HDL-C Calculated 112 <=129 mg/dL 04/05/2018 8:20 PM EST [facility] Comment: <130 ?Desirable 130-159 Above Desirable 160-189 Borderline High 190-219 High >= 220 ??Very High Fasting Specimen? Yes None 019 8:20 PM EST [facility] [employer] Blood Venipuncture / Unknown 04/05/2018 4:48 PM EST 04/05/2018 4:48 PM EST Fili Sanchez MD CHEMISTRY ORDERABLES Fin al Result [facility] [employer] [address] [facility], [place] [address] documented in this encounter Visit Diagnoses Diagnosis Uncontrolled type 2 diabetes mellitus without complication, without long-term current use of insulin documented in this encounter Care Teams Desktop Publisher Relationship Specialty Start Date End Date Aba Espinoza MD [address] [place] [address] PCP - General Family Medicine 07/27/16 Fili Sanchez MD [address] [place] [address] Internal Medicine-Endocrinology, Diabetes & Metabolism 04/11/14 documented as of this encounter
--- OUTSIDE RECORDS SUMMARY | 2024-01-18 14:58 | XMS_ITS | Encounter Summary ---
Author Organization [place] [address] Care Team Providers Care Composition Roll Maker And Cutter Name Role Phone Fili Sanchez MD Unavailable [phone] Aba Espinoza MD Primary Care Provider [phone] Reason for Visit * Reason Comments Medication Refill Encounter Details Date Type Department Care Team (Late st Contact Info) Description 01/15/2019 Refill [facility] Physicians [facility] [address] [facility] [address] [place] [address] Fili Sanchez MD [address] [address] Medication Refill Social History Tobacco [...] 1 TABLET BY MOUTH DAILY. 90 Tab 1 01/15/2019 02/22/2019 documented in this encounter Plan of Treatment Upcoming Encounters Date Type Department Care Team (Late st Contact Info) Description 04/26/2024 9:00 AM EDT Office Visit [facility] Nephrology [place] [address] [place] [address] Julio Silva MD [address] [place] [address] documented as of this encounter Visit Diagnoses Not on filedocumented in this encounter Care Teams Composition Roll Maker And Cutter Relationship Specialty Start Date End Date Aba Espinoza MD [address] [place] [phone] PCP - General Family Medicine 07/27/16 Fili Sanchez MD [address] [facility] [address] [place] [address] Internal Medicine-Endocrinology, Diabetes & Metabolism 04/11/14 documented as of this encounter
--- OUTSIDE RECORDS SUMMARY | 2024-01-18 14:58 | XMS_ITS | Encounter Summary ---
Author Organization [place] [address] Care Team Providers Care Woods Overseer Name Role Phone Fili Sanchez MD Unavailable Aba Espinoza MD Primary Care Provider Reason for Visit * Reason Onset Date Comments Appointment Needed 08/01/2018 [facility]SC Encounter Details Date Type Department Care Team (Late st Contact Info) Description 08/01/2018 [facility]phone [facility] [place] [address] [facility] [address] [place] [address] Fili Sanchez MD [address] [facility] [address] [place] [address] Appointment Needed (PSC ) Social History Tobacco Use Types Packs/Day [...] encounter Miscellaneous Notes * Telephone Encounter - Jory Bernard - 08/01/2018 11:53 AM EDT Left message on machine to inform 10/23/18 office visit has been cancelled, please call to reschedule. My chart message sent. documented in this encounter Plan of Treatment Upcoming Encounters Date Type Department Care Team (Late st Contact Info) Description 04/26/2024 9:00 AM EDT Office Visit [facility] Nephrology [place] [address] [place] [address] Julio Silva MD [address] [place] [address] documented as of this encounter Visit Diagnoses Not on filedocumented in this encounter Care Teams Woods Overseer Relationship Specialty Start Date End Date Aba Espinoza MD [address] [place] [phone] PCP - General Family Medicine 07/27/16 Fili Sanchez MD [address] [facility] [address] [place] [address] Internal Medicine-Endocrinology, Diabetes & Metabolism 04/11/14 documented as of this encounter
--- OUTSIDE RECORDS SUMMARY | 2024-01-18 14:58 | XMS_ITS | Encounter Summary ---
Author Organization [facility] [place] [address] Care Team Providers Care Algorithm Developer Name Role Phone Fili Sanchez MD Unavailable [phone] Aba Espinoza MD Primary Care Provider + [phone] Encounter Details Date Type Department Care Team (Latest Contact Info) Description 06/11/2019 Travel Social History Tobacco Use Types Packs/Day [...] Description 04/26/2024 9:00 AM EDT Office Visit [facility] Nephrology [place] [address] [facility] [place] [address] Julio Silva MD [address] [address] documented as of this encounter Visit Diagnoses Not on filedocumented in this encounter Care Teams Algorithm Developer Relationship Specialty Start Date End Date Aba Espinoza MD [address] [place] [address] PCP - General Family Medicine 07/27/16 Fili Sanchez MD [address] [facility] [address] [place] [address] Internal Medicine-Endocrinology, Diabetes & Metabolism 04/11/14 documented as of this encounter
--- OUTSIDE RECORDS SUMMARY | 2024-01-18 14:58 | XMS_ITS | Encounter Summary ---
Author Organization [place] [address] Care Team Providers Care Healthcare Technician Name Role Phone Fili Sanchez MD Unavailable [phone] Aba Espinoza MD Primary Care Provider [phone] Encounter Details Date Type Department Care Team (Latest Contact Info) Description 11/15/2019 10:50 AM EDT - 11/15/2019 11:59 PM EDT Hospital Encounter [facility] [address] [place] [address] Uncontrolled diabetes mellitus with stage [...] mouth daily. nitroGLYCERIN (NITROLINGUAL) 400 mcg/spray TL [place], Non-Aerosol Place 1 [place] under the tongue every 5 minutes as needed for Chest pain. sacubitriL-valsar mistry (ENTRESTO) 24-26 mg Oral Tablet Take 1 Tab by mouth 2 times daily. spironolactone (ALDACTONE) 25 mg Oral Tablet Take 25 mg by mouth daily. JANUVIA 100 mg Oral Tablet TAKE 1 TABLET BY MOUTH DAILY. 90 Tab 2 08/02/2019 02/27/2020 metFORMIN (GLUCOPHAGE) 1,000 mg Oral Tablet TAKE [...] 9:00 AM EDT Office Visit [facility] Nephrology [place] [address] [facility] [place] [address] Julio Silva MD [address] [facility] [place] [address] documented as of this encounter Procedures Procedure Name Priority Date/Time Associated Diagnosis Comments MICROALBUMIN/CREATININ E RATIO URINE Routine 11/15/2019 12:44 PM EDT Uncontrolled diabetes mellitus with stage 3 chronic kidney disease, without long-term current use of insulin (HCC) LIPID PANEL REFLEX Routine 11/15/2019 10 :56 AM EDT Uncontrolled diabetes mellitus with stage 3 chronic kidney disease, without long-term current use of insulin (HCC) HEMOGLOBIN A1C Routine 11/15/2019 10:56 AM EDT Uncontrolled diabetes mellitus with stage 3 chronic kidney disease, without long-term current use of insulin (HCC) COMPREHENSIVE METABOLIC PANEL Routine 11/15/2019 10:56 AM EDT Uncontrolled diabetes mellitus with stage 3 chronic kidney disease, without long-term current use of insulin (HCC) documented in this encounter Results * MICROALBUMIN/CREATININE RATIO URINE (11/15/2019 12:44 PM EDT) Urine Microalb <12.0 mg/L 11/15/2019 5:31 PM EDT [facility] Urine Creatinine 158.6 mg/dL 11/15/19 20 5:31 PM EDT [facility] Ur Microalb/Creat 020 5:31 PM EDT [facility] Comment: Because the albumin level is below the level of detection in this urine specimen, the laboratory is unable to calculate a reliable albumin/creatinine ratio. Microalbuminuria is unlikely if the urine albumin concentration is less than 20- 30 mg/L in a random specimen. Urine 11/15/2019 12:4 4 PM EDT 11/15/2019 12:44 PM EDT Fili Sanchez MD URINE ORDERABLES Final R esult [facility] [address] [facility] , [place] [address] * (ABNORMAL) HEMOGLOBIN A1C (11/15/2019 10:56 AM EDT) Hgb A1C 7.6(H) 4.2 - 5.6 % 11/15/2019 3:29 PM EDT [facility] Est. Avg Glucose 171 mg/dL 11/15/2019 3:29 PM EDT [facility] Blood Venipuncture / Unknown 11/15/2019 10:56 AM EDT 11/15/2019 10:56 AM EDT Narrative [facility] - 11/15/2019 3:29 PM EDT REFERENCE [...] Result [facility] [address] [facility] , [place] [address] * (ABNORMAL) COMPREHENSIVE METABOLIC PANEL (11/15/2019 10:56 [...] - 1.4 mg/dL 11/15/2019 3:52 PM EDT [facility] ALT 22 <=41 U/L 11/15/2019 3:52 PM EDT [facility] AST 20 <=40 U/L 11/15/2019 3:52 PM EDT [facility] Alk Phos 52 40 - 129 U/L 11/15/2019 3:52 PM EDT [facility] GFR Afr Am 62 >=60 mL/min/1.7 3 m2 11/15/2019 3:52 PM EDT [facility] GFR Non Afr Am 54(L) >=60 mL/min/1.7 3 m2 11/15/2019 3:52 PM EDT [facility] Comment: This estimated GFR was calculated [...] CHEMISTRY ORDERABLES Fin al Result [facility] [address] [facility] , [address] [place] [id number] [facility] 1 [place] [address] * (ABNORMAL) LIPID PANEL REFLEX (11/15/2019 10:56 AM EDT) [facility] Signature Cholesterol 131 <200 mg/dL 11/15/2019 4:19 PM EDT [facility] Comment: < 200 ?Desirable 200 - 239 ? Borderline High >= 240 ?High Triglyceride 187(H) <150 mg/dL 11/15/2019 4:19 PM EDT [facility] Comment: < 150 ? Normal 150 - 199 ?Borderline High 200 - 499 ?High ??>= 500 ? Very High HDL 36(L) >=40 mg/dL 11/15/2019 4:19 PM EDT [facility] Comment: ??> 60 ?Optimal 40 - 60 ?Acceptable ?? < 40 ?Low LDL Direct 62 <100 mg/dL 11/15/2019 4:19 PM EDT [facility] Non-HDL-C Calculated 95 <=129 mg/dL 11/15/2019 4:19 PM EDT [facility] Comment: <130 ?Desirable 130-159 Above Desirable 160-189 Borderline High 190-219 High >= 220 ??Very High Fasting Specimen? Yes None 020 4:19 PM EDT [facility] Blood Venipuncture / Unknown 11/15/2019 10:56 AM EDT 11/15/2019 10:56 AM EDT Fili Sanchez MD CHEMISTRY ORDERABLES Fin al Result Performing Organization Address [facility]/State/[facility] Co de Phone Number [facility] [address] [place] [address], [place] [address] documented in this encounter Visit Diagnoses Diagnosis Uncontrolled diabetes mellitus with stage 3 chronic kidney disease, without long-term current use of insulin documented in this encounter Care Teams Healthcare Technician Relationship Specialty Start Date End Date Aba Espinoza MD [address] [place] [address] [place] [address] PCP - General Family Medicine 07/27/16 Fili Sanchez MD [address] [facility] [address] [place] [address] Internal Medicine-Endocrinology, Diabetes & Metabolism 04/11/14 documented as of this encounter
--- OUTSIDE RECORDS SUMMARY | 2024-01-18 14:58 | XMS_ITS | Encounter Summary ---
Author Organization [place] [address] Care Team Providers Care Machine Egg Washer Name Role Phone Fili Sanchez MD Unavailable [phone] Aba Espinoza MD Primary Care Provider [phone] Encounter Details Date Type Department Care Team (Latest Contact Info) Description 06/11/2019 9:25 AM EDT - 06/11/2019 11:59 PM EDT Hospital Encounter [facility] [address] [place] [address] Dyslipidemia; Uncontrolled diabetes mellitus with stage 3 chronic [...] mouth daily. nitroGLYCERIN (NITROLINGUAL) 400 mcg/spray TL [place], Non-Aerosol Place 1 [place] under the tongue every 5 minutes as [...] A DAY 180 Tab 3 06/04/2019 1 simvastatin (ZOCOR) 40 mg Oral Tablet TAKE 1 TABLET NIGHTLY 90 Tab 3 06/04/2019 1 SITagliptin (JANUVIA) 100 mg Oral Tablet Take 1 Tab by mouth daily. 90 Tab 1 02/22/2019 0 documented as of this encounter Discharge Disposition Disposition Code Departure Means Destination Home or Self Care documented in this encounter Plan of Treatment Upcoming Encounters Date Type Department Care Team (Late st Contact Info) Description 04/26/2024 9:00 AM EDT Office Visit [facility] Nephrology [place] [address] [facility] [address] [facility] [place] [address] Julio Silva MD [address] [address] documented as of this encounter Procedures Procedure Name Priority Date/Time Associated Diagnosis Comments MICROALBUMIN/CREATININ E RATIO URINE Routine 06/11/2019 11:11 AM EDT Uncontrolled diabetes mellitus with stage 3 chronic kidney disease, without long-term current use of insulin (HCC) LIPID PANEL REFLEX Routine 06/11/2019 9: 35 AM EDT Dyslipidemia HEMOGLOBIN A1C Routine 06/11/2019 9:35 AM EDT Uncontrolled diabetes mellitus with stage 3 chronic kidney disease, without long-term current use of insulin (HCC) COMPREHENSIVE METABOLIC PANEL Routine 06/11/2019 9:35 AM EDT Uncontrolled diabetes mellitus with stage 3 chronic kidney disease, without long-term current use of insulin (HCC) documented in this encounter Results * MICROALBUMIN/CREATININE RATIO URINE (06/11/2019 11:11 AM EDT) Urine Microalb 30.0 mg/L 06/11/2019 1:58 PM EDT [facility] Urine Creatinine 195.8 mg/dL 06/11/2019 1:58 PM EDT [facility] Ur Microalb/Creat 15 0 - 30 mg/g 06/11/2019 1:58 PM EDT [facility] Urine 06/11/2019 11:1 1 AM EDT 06/11/2019 11:11 AM EDT Fili Sanchez MD URINE ORDERABLES Final R esult [facility] [address] [facility] , [place] [address] * (ABNORMAL) HEMOGLOBIN A1C (06/11/2019 9:35 AM EDT) Hgb A1C 7.2(H) 4.2 - 5.6 % 06/11/2019 1:38 PM EDT [facility] Est. Avg Glucose 160 mg/dL 06/11/2019 1:38 PM EDT [facility] Blood Venipuncture / Unknown 06/11/2019 9:35 AM EDT 06/11/2019 9:35 AM EDT Narrative [facility] [facility] - 06/11/2019 1:38 PM EDT REFERENCE RANGE: [...] al Result [facility] [address] [facility] , [place] [address] * (ABNORMAL) COMPREHENSIVE METABOLIC PANEL (06/11/2019 9:35 [...] 1:43 PM EDT [facility] BUN 25(H) 8 - 23 mg/dL 06/11/2019 1:43 PM EDT [facility] Creatinine 1.51(H) 0.67 - 1.30 mg/dL 06/11/2019 1:43 PM EDT [facility] Albumin 4.4 3.2 - 4.6 gm/dL 06/11/2019 1:43 PM EDT [facility] Total Protein 7.0 6.4 - 8.3 gm/dL 06/11/2019 1:43 PM EDT [facility] Bili Total 0.3 0.1 - 1.4 mg/dL 06/11/2019 1:43 PM EDT [facility] ALT 19 <=41 U/L 06/11/2019 1:43 PM EDT [facility] AST 20 <=40 U/L 06/11/2019 1:43 PM EDT [facility] Alk Phos 55 40 - 129 U/L 06/11/2019 1:43 PM EDT [facility] GFR Afr Am 54(L) >=60 mL/min/1.7 3 m2 06/11/2019 1:43 PM EDT [facility] GFR Non Afr Am 47(L) >=60 mL/min/1.7 3 m2 06/11/2019 1:43 PM EDT [facility] Comment: This estimated GFR was [...] Sanchez MD CHEMISTRY ORDERABLES Fin al Result [facility] 1 [facility], [place] [address] [facility] 1 [place] [address] * LIPID PANEL REFLEX (06/11/2019 9:35 AM EDT) [facility] Cholesterol 131 <200 mg/dL 06/11/2019 1:43 PM EDT [facility] Comment: < 200 ?Desirable 200 - 239 ? Borderline High >= 240 ?High Triglyceride 130 <150 mg/dL 06/11/2019 1:43 PM EDT [facility] [employer] Comment: < 150 ? Normal 150 - 199 ?Borderline High 200 - 499 ?High ??>= 500 ? Very High HDL 43 >=40 mg/dL 06/11/2019 1:43 PM EDT [facility] Comment: ??> 60 ?Optimal 40 - 60 ?Acceptable ?? < 40 ?Low LDL Calculated 62 <100 mg/dL 06/11/2019 1:43 PM EDT [facility] Non-HDL-C Calculated 88 <=129 mg/dL 06/11/2019 1:43 PM EDT [facility] Comment: <130 ?Desirable 130-159 Above Desirable 160-189 Borderline High 190-219 High >= 220 ??Very High Fasting Specimen? Yes None 020 1:43 PM EDT [facility] Blood Venipuncture / Unknown 06/11/2019 9:35 AM EDT 06/11/2019 9:35 AM EDT Fili Sanchez MD CHEMISTRY ORDERABLES Fin al Result [facility] [address] [facility] , [place] [address] documented in this encounter Visit Diagnoses Diagnosis Dyslipidemia Other and unspecified hyperlipidemia Uncontrolled diabetes mellitus with stage 3 chronic kidney disease, without long-term current use of insulin documented in this encounter Care Teams Machine Egg Washer Relationship Specialty Start Date End Date Aba Espinoza MD [address] [place] [address] PCP - General Family Medicine 07/27/16 Fili Sanchez MD [address] [place] [address] Internal Medicine-Endocrinology, Diabetes & Metabolism 04/11/14 documented as of this encounter
--- OUTSIDE RECORDS SUMMARY | 2024-01-18 14:58 | XMS_ITS | Encounter Summary ---
Author Organization [place] [address] Care Team Providers Care Clinical Microbiologist Name Role Phone Fili Sanchez MD Unavailable [phone] Aba Espinoza MD Primary Care Provider [phone] Reason for Visit * Reason Comments Medication Refill Encounter Details Date Type Department Care Team (Late st Contact Info) Description 08/02/2019 Refill [facility] Physicians [facility] [address] [facility] [address] [place] [address] Fili Sanchez MD [address] [address] Medication Refill Social History Tobacco [...] MOUTH DAILY. 90 Tab 2 08/02/2019 02/27/2020 documented in this encounter Plan of Treatment Upcoming Encounters Date Type Department Care Team (Late st Contact Info) Description 04/26/2024 9:00 AM EDT Office Visit [facility] Nephrology [place] [address] [facility] [facility] [address] [place] [address] Julio Silva MD [address] [place] [address] documented as of this encounter Visit Diagnoses Not on filedocumented in this encounter Discontinued Medications Medication Sig Discontinue Reason Start Date End Da te SITagliptin (JANUVIA) 100 mg Oral Tablet Take 1 Tab by mouth daily. 02/22/2019 08/02/2019 documented as of this encounter Care Teams Clinical Microbiologist Relationship Specialty Start Date End Date Aba Espinoza MD [address] [place] [address] [place] [phone] PCP - General Family Medicine 07/27/16 Fili Sanchez MD [address] [facility] [address] [place] [address] Internal Medicine-Endocrinology, Diabetes & Metabolism 04/11/14 documented as of this encounter
--- OUTSIDE RECORDS SUMMARY | 2024-01-18 14:58 | XMS_ITS | Encounter Summary ---
Author Organization [facility] [place] [address] Care Team Providers Care Park Manager Name Role Phone Fili Sanchez MD Unavailable [phone] Aba Espinoza MD Primary Care Provider [phone] Encounter Details Date Type Department Care Team (Latest Contact Info) Description 07/23/2019 Travel Social History Tobacco Use Types Packs/Day [...] 04/26/2024 9:00 AM EDT Office Visit [facility] Nephrology [place] [address] [facility] [place] [address] Julio Silva MD [address] [place] [address] documented as of this encounter Visit Diagnoses Not on filedocumented in this encounter Care Teams Park Manager Relationship Specialty Start Date End Date Aba Espinoza MD [address] [place] [address] PCP - General Family Medicine 07/27/16 Fili Sanchez MD [address] [facility] [address] [place] [address] Internal Medicine-Endocrinology, Diabetes & Metabolism 04/11/14 documented as of this encounter
--- OUTSIDE RECORDS SUMMARY | 2024-01-18 14:58 | XMS_ITS | Encounter Summary ---
Author Organization [place] [address] Care Team Providers Care Game Design Instructor Name Role Phone Fili Sanchez MD Unavailable [phone] Aba Espinoza MD Primary Care Provider [phone] Encounter Details Date Type Department Care Team (Latest Contact Info) Description 02/21/2019 12:30 PM EST - 02/21/2019 11:59 PM [facility] Hospital Encounter [facility] [address] [place] [address] Uncontrolled type 2 diabetes mellitus without complication, without long-term current use of insulin; Dyslipidemia; Injury of toe on right foot, initial [...] mouth daily. nitroGLYCERIN (NITROLINGUAL) 400 mcg/spray TL [place], Non-Aerosol Place 1 [place] under the tongue every 5 minutes as needed for Chest pain. sacubitriL-valsa rtan (ENTRESTO) 24-26 mg Oral Tablet Take 1 Tab by mouth 2 times daily. spironolactone (ALDACTONE) 25 mg Oral Tablet Take 25 mg by mouth daily. glipiZIDE (GLUCOTROL) 5 mg Oral Tablet Take 1 tab at breakfast and 1 1/2 tabs at supper 225 Tab 3 08/01/2018 0 metFORMIN (GLUCOPHAGE) 1,000 mg Oral Tablet TAKE 1 TABLET TWICE A DAY 180 Tab 3 08/01/2018 0 simvastatin (ZOCOR) 40 mg Oral Tablet TAKE 1 TABLET NIGHTLY 90 Tab 3 08/23/2018 0 documented as of this encounter Discharge Disposition Disposition Code Departure Means Destination Home or Self Care documented in this encounter Progress Notes * Vonnie Hicks APRN - 02/21/2019 12:30 PM EST Will discuss labs at upcoming office visit. * Vonnie Hicks APRN - 02/21/2019 12:30 PM EST Will discuss labs at upcoming office visit. documented in this encounter Plan of Treatment Upcoming Encounters Date Type Department Care Team (Late st Contact Info) Description 04/26/2024 9:00 AM EDT Office Visit [facility] Nephrology [place] [address] [place] [place] [place] [address] Juilo Silva MD [address] [address] documented as of this encounter Procedures Procedure Name Priority Date/Time Associated Diagnosis Comments LIPID PANEL REFLEX Routine 02/21/2019 12 :33 PM EST Dyslipidemia URIC ACID Routine 02/21/2019 12:33 PM EST Injury of toe on right foot, initial encounter HEMOGLOBIN A1C Routine 02/21/2019 12:33 PM EST Uncontrolled type 2 diabetes mellitus without complication, without long-term current use of insulin COMPREHENSIVE METABOLIC PANEL Routine 02/21/2019 12:33 PM EST Uncontrolled type 2 diabetes mellitus without complication, without long-term current use of insulin documented in this encounter Results * (ABNORMAL) URIC ACID (02/21/2019 12:33 PM EST) Uric Acid 10.8(H) 3.4 - 7.0 mg/dL 02/22/2019 10:19 AM EST [facility] Blood Venipuncture / Unknown 02/21/2019 12:33 PM EST 02/21/2019 12:33 PM EST Fili Sanchez MD CHEMISTRY ORDERABLES Fin al Result Performing Organization Address [facility]/State/ZIP Co de Phone Number [facility] [address] [place] [address] [facility] [address] [facility], [place] [address] * LIPID PANEL REFLEX (02/21/2019 12:33 PM EST) Cholesterol 163 <=200 mg/dL 02/21/2019 5:32 PM EST [employer] Comment: < 200 ?Desirable 200 - 239 ? Borderline High >= 240 ?High Triglyceride 146 <=150 mg/dL 02/21/2019 5:32 PM EST [employer] Comment: < 150 ? Normal 150 - 199 ?Borderline High 200 - 499 ?High ??>= 500 ? Very High HDL 45 >=40 mg/dL 02/21/2019 5:32 PM EST [employer] Comment: ??> 60 ?Optimal 40 - 60 ?Acceptable ?? < 40 ?Low LDL Calculated 89 <=100 mg/dL 02/21/2019 5:32 PM EST [facility] [employer] Non-HDL-C Calculated 118 <=129 mg/dL 02/21/2019 5:32 PM EST [facility] [employer] Comment: <130 ?Desirable 130-159 Above Desirable 160-189 Borderline High 190-219 High >= 220 ??Very High Fasting Specimen? Yes None 020 5:32 PM EST [facility] [employer] Blood Venipuncture / Unknown 02/21/2019 12:33 PM EST 02/21/2019 12:33 PM EST Vonnie Hicks APRN CHEMISTRY ORDERABLES Final Result Performing Organization Address [facility] de Phone Number [facility] [employer] [address] [facility] , [place] [address] * (ABNORMAL) HEMOGLOBIN A1C (02/21/2019 12:33 PM EST) Hgb A1C 7.6(H) 4.2 - 5.6 % 02/21/2019 5:04 PM EST [facility] [employer] Est. Avg Glucose 171 mg/dL 02/21/2019 5:04 PM EST [facility] [employer] Blood Venipuncture / Unknown 02/21/2019 12:33 PM EST 02/21/2019 12:33 PM EST Narrative [facility] [employer] - 02/21/2019 5:04 PM EST REFERENCE RANGE: Normal: 4.0-5.6% Pre-diabetes: 5.7-6.4% Provisional diagnosis of diabetes: >6.4% Hgb F>10% and anything which shortens red cell survival, such as hemolytic anemia, or unstable hemoglobin variants such as HbSS, HbSC, or HbCC, will lower the HbA1c value associated with a given level of glycemic control. ? Vonnie Hicks APRN CHEMISTRY ORDERABLES Final Result Performing Organization Address [facility]/ZIP Co de Phone Number [facility] [address] [facility] , [place] [address] * (ABNORMAL) COMPREHENSIVE METABOLIC PANEL (02/21/2019 12:33 PM EST) [facility] Sodium 138 136 - 145 mmol/L 02/21/2019 5:32 PM EST [facility] Potassium 4.2 3.5 - 5.0 mmol/L 02/21/2019 5:32 PM EST [facility] Chloride 97(L) 98 - 107 mmol/L 02/21/2019 5:32 PM EST [facility] Total CO2 27 22 - 29 mmol/L 02/21/2019 5:32 PM EST [facility] Anion Gap 14 7 - 16 mmol/L 02/21/2019 5:32 PM EST [facility] Calcium 9.4 8.8 - 10.4 mg/dL 02/21/2019 5:32 PM EST [facility] Glucose Lvl 166(H) 82 - 100 mg/dL 02/21/2019 5:32 PM EST [facility] BUN 30(H) 8 - 23 mg/dL 02/21/2019 5:32 PM EST [facility] Creatinine 1.60(H) 0.67 - 1.30 mg/dL 02/21/2019 5:32 PM EST [facility] Albumin 4.4 3.2 - 4.6 gm/dL 02/21/2019 5:32 PM EST [facility] Total Protein 7.6 6.4 - 8.3 gm/dL 02/21/2019 5:32 PM EST [facility] Bili Total 0.5 0.1 - 1.4 mg/dL 02/21/2019 5:32 PM EST [facility] ALT 17 <=41 IU/L 02/21/2019 5:32 PM EST [facility] AST 17 <=40 IU/L 02/21/2019 5:32 PM EST [facility] Alk Phos 54 40 - 129 IU/L 02/21/2019 5:32 PM EST [facility] GFR Afr Am 51(L) >=60 mL/min/1.7 3 m2 02/21/2019 5:32 PM EST [facility] GFR Non Afr Am 44(L) >=60 mL/min/1.7 3 m2 02/21/2019 5:32 PM EST [facility] Comment: This estimated GFR was calculated [...] CHEMISTRY ORDERABLES Final Result Performing Organization Address City/State/[facility] Co de Phone Number [facility] [employer] [address] [facility], [place] [address] [facility] 1 [place] [address] documented in this encounter Visit Diagnoses Diagnosis Uncontrolled type 2 diabetes mellitus without complication, without long-term current use of insulin Dyslipidemia Other and unspecified hyperlipidemia Injury of toe on right foot, initial encounter documented in this encounter Care Teams Game Design Instructor Relationship Specialty Start Date End Date Aba Espinoza MD [address] [place] [address] PCP - General Family Medicine 07/27/16 Fili Sanchez MD [address] [facility] [address] [place] [address] Internal Medicine-Endocrinology, Diabetes & Metabolism 04/11/14 documented as of this encounter
--- OUTSIDE RECORDS SUMMARY | 2024-01-18 14:58 | XMS_ITS | Encounter Summary ---
Author Organization [place] [address] Care Team Providers Care Staff Software Engineer Name Role Phone Fili Sanchez MD Unavailable [phone] Aba Espinoza MD Primary Care Provider [phone] Reason for Visit * Reason Comments Medication Refill Encounter Details Date Type Department Care Team (Late st Contact Info) Description 08/01/2018 Refill [facility] Physicians [facility] Diabetes [place] 1500 [facility] [address] [place] [address] Fili Sanchez MD [address] [address] Medication Refill Social History Tobacco [...] A DAY 180 Tab 3 08/01/2018 0 documented in this encounter Plan of Treatment Upcoming Encounters Date Type Department Care Team (Late st Contact Info) Description 04/26/2024 9:00 AM EDT Office Visit [facility] Nephrology [place] [address] [place] [address] Julio Silva MD [address] [facility] [address] [address] [place] [address] documented as of this encounter Visit Diagnoses Not on filedocumented in this encounter Discontinued Medications Medication Sig Discontinue Reason Start Date End Da te metFORMIN (GLUCOPHAGE) 1,000 mg Oral Tablet Take 1 Tab by mouth 2 times daily. Reorder 08/24/2017 08/01/2018 glipiZIDE (GLUCOTROL) 5 mg Oral Tablet TAKE 1 TABLET TWICE DAILY BEFORE MEALS. Reorder 08/24/2017 08/01/2018 documented as of this encounter Care Teams Staff Software Engineer Relationship Specialty Start Date End Date Aba Espinoza MD [address] [place] [address] [place] [address] PCP - General Family Medicine 07/27/16 Fili Sanchez MD [address] [facility] [address] [place] [address] Internal Medicine-Endocrinology, Diabetes & Metabolism 04/11/14 documented as of this encounter
--- OUTSIDE RECORDS SUMMARY | 2024-01-18 14:58 | XMS_ITS | Encounter Summary ---
Author Organization [facility] [place] [address] Care Team Providers Care Sheltered Workshop Worker Name Role Phone Fili Sanchez MD Unavailable [phone] Aba Espinoza MD Primary Care Provider [phone] Reason for Visit * Reason Onset Date Comments Medication Refill 07/18/2018 Encounter Details Date Type Department Care Team (Late st Contact Info) Description [facility] [address] [address] Fili Sanchez MD [address] [address] Medication Refill Social History Tobacco [...] Tab by mouth daily. 90 Tab 1 07/18/2018 02/22/2019 documented in this encounter Plan of Treatment Upcoming Encounters Date Type Department Care Team (Late st Contact Info) Description 04/26/2024 9:00 AM EDT Office Visit [facility] Nephrology [place] [address] [place] [address] Julio Silva MD [address] [place] [address] documented as of this encounter Visit Diagnoses Not on filedocumented in this encounter Discontinued Medications Medication Sig Discontinue Reason Start Date End Da te sitaGLIPtin (JANUVIA) 100 mg Oral Tablet Take 1 Tab by mouth daily. Reorder 04/07/2018 07/18/2018 documented as of this encounter Care Teams Sheltered Workshop Worker Relationship Specialty Start Date End Date Aba Espinoza MD [address] [place] [id number] PCP - General Family Medicine 07/27/16 Fili Sanchez MD [address] [facility] [address] [place] [address] Internal Medicine-Endocrinology, Diabetes & Metabolism 04/11/14 documented as of this encounter
--- OUTSIDE RECORDS SUMMARY | 2024-01-18 14:58 | XMS_ITS | Encounter Summary ---
Author Organization [place] [address] Care Team Providers Care Stone Planer Name Role Phone Fili Sanchez MD Unavailable [phone] Aba Espinoza MD Primary Care Provider [phone] Reason for Visit * Reason Comments Medication Refill Encounter Details Date Type Department Care Team (Late st Contact Info) Description 08/23/2018 Refill [facility] Physicians [facility] [address] [facility] [address] [place] [address] Fili Sanchez MD [address] [address] Medication Refill Social History Tobacco [...] NIGHTLY 90 Tab 3 08/23/2018 0 documented in this encounter Plan of Treatment Upcoming Encounters Date Type Department Care Team (Late st Contact Info) Description 04/26/2024 9:00 AM EDT Office Visit [facility] Nephrology [place] [address] [place] [address] Julio Silva MD [address] [place] [address] documented as of this encounter Visit Diagnoses Not on filedocumented in this encounter Discontinued Medications Medication Sig Discontinue Reason Start Date End Da te simvastatin (ZOCOR) 40 mg Oral Tablet Take 1 Tab by mouth nightly. Reorder 08/24/2017 08/23/2018 documented as of this encounter Care Teams Stone Planer Relationship Specialty Start Date End Date Aba Espinoza MD [address] [place] [address] [place] [address] PCP - General Family Medicine 07/27/16 Fili Sanchez MD [address] [facility] [address] [place] [address] Internal Medicine-Endocrinology, Diabetes & Metabolism 04/11/14 documented as of this encounter
--- OUTSIDE RECORDS SUMMARY | 2024-01-18 14:58 | XMS_ITS | Encounter Summary ---
Author Organization [place] [address] Care Team Providers Care Press Tool Maker Name Role Phone Fili Sanchez MD Unavailable [phone] Aba Espinoza MD Primary Care Provider [phone] Reason for Visit * Reason Onset Date Comments Other 05/25/2019 to offer vide o visit for 06/12/19 OV appt Encounter Details Date Type Department Care Team (Late st Contact Info) Description 05/25/2019 Telephone [facility] 1500 [facility] [address] [place] [address] Fili Sanchez MD 1500 [facility] [address] [place] [address] Other ( to offer video visit for 06/12/19 OV appt) Social History Tobacco Use Types Packs/Day Years [...] encounter Miscellaneous Notes * Telephone Encounter - Alona Pearson - 06/11/2019 5:40 PM EDT Left message for patient confirming mychart video visit with Dr. Sanchez on 06/12/2019. * Telephone Encounter - Sonail Don RMA - 05/25/2019 10:04 AM EDT Unable to reach pt. Left msg on VM again. Need to cahnge appt type to video visit or telephone if pt cant do video visit. documented in this encounter Plan of Treatment Upcoming Encounters Date Type Department Care Team (Late st Contact Info) Description 04/26/2024 9:00 AM EDT Office Visit [facility] Nephrology [place] [address] [place] [address] Julio Silva MD [address] [place] [address] documented as of this encounter Visit Diagnoses Not on filedocumented in this encounter Care Teams Press Tool Maker Relationship Specialty Start Date End Date Aba Espinoza MD [address] [place] [address] [place] [address] PCP - General Family Medicine 07/27/16 Fili Sanchez MD [address] [facility] [address] [place] [address] Internal Medicine-Endocrinology, Diabetes & Metabolism 04/11/14 documented as of this encounter
--- OUTSIDE RECORDS SUMMARY | 2024-01-18 14:59 | XMS_ITS | Encounter Summary ---
Author Organization [place] [address] Care Team Providers Care Briquetting Machine Operator Name Role Phone Fili Sanchez MD Unavailable [phone] Aba Espinoza MD Primary Care Provider [phone] Encounter Details Date Type Department Care Team (Late st Contact Info) Description 07/29/[address] [facility] Physicians [facility] Diabetes [place] [address] [facility] [address] [place] [phone] Sonali Don RMA Controlled type 2 diabetes mellitus without complication, without [...] Refills Last Filled Start Date End Date Blood Sugar Diagnostic Misc Strip Test blood sugar up to 2 x daily 100 Strip 11 07/29/2016 12/09/2017 documented in this encounter Plan of Treatment Upcoming Encounters Date Type Department Care Team (Late st Contact Info) Description 04/26/2024 9:00 AM EDT Office Visit [facility] Nephrology [place] [address] [place] [address] Julio Silva MD [address] [place] [address] documented as of this encounter Visit Diagnoses Diagnosis Controlled type 2 diabetes mellitus without complication, without long-term current use of insulin (HCC)- Primary documented in this encounter Care Teams Briquetting Machine Operator Relationship Specialty Start Date End Date Aba Espinoza MD [address] [place] [address] PCP - General Family Medicine 07/27/16 Fili Sanchez MD [address] [facility] [address] [place] [address] Internal Medicine-Endocrinology, Diabetes & Metabolism 04/11/14 documented as of this encounter
--- OUTSIDE RECORDS SUMMARY | 2024-01-18 14:59 | XMS_ITS | Encounter Summary ---
Author Organization [place] [address] Care Team Providers Care Casing Tier Name Role Phone Fili Sanchez MD Unavailable [phone] Aba Espinoza MD Primary Care Provider [phone] Encounter Details Date Type Department Care Team (Latest Contact Info) Description 12/08/2017 9:45 AM EDT - 12/08/2017 11:59 PM EDT Hospital Encounter [facility] [address] [place] [address] Uncontrolled type 2 diabetes mellitus [...] 04/26/2024 9:00 AM EDT Office Visit [facility] Nephrology [place] [address] [place] [address] Julio Silva MD [address] [place] [address] documented as of this encounter Procedures Procedure Name Priority Date/Time Associated Diagnosis Comments LIPID PANEL REFLEX Routine 12/08/2017 9: 58 AM EDT Uncontrolled type 2 diabetes mellitus without complication, without long-term current use of insulin (HCC) THYROID STIMULATING HORMONE Routine 12/08/2017 9:58 AM EDT Uncontrolled type 2 diabetes mellitus without complication, without long-term current use of insulin (HCC) HEMOGLOBIN A1C Routine 12/08/2017 9:58 AM EDT Uncontrolled type 2 diabetes mellitus without complication, without long-term current use of insulin (HCC) COMPREHENSIVE METABOLIC PANEL Routine 12/08/2017 9:58 AM EDT Uncontrolled type 2 diabetes mellitus without complication, without long-term current use of insulin (HCC) documented in this encounter Results * (ABNORMAL) THYROID STIMULATING HORMONE (12/08/2017 9:58 AM EDT) TSH 4.260(H) 0.270 - 4.200 mcIU/mL 12/08/2017 4:52 PM EDT [facility] [employer] [employer] Blood Venipuncture / Unknown 12/08/2017 9:58 AM EDT 12/08/2017 9:58 AM EDT Narrative [facility] [employer] - 12/08/2017 4:52 PM EDT Ingestion of pratik doses of biotin (>5 mg/day) taken within 8 hours of drawing blood sample can interfere with this immunoassay test. Fili Sanchez MD CHEMISTRY ORDERABLES Danny jeronimo Result Performing Organization Address [facility] de Phone Number [employer] [address] , [place] [address] * (ABNORMAL) HEMOGLOBIN A1C (12/08/2017 9:58 AM EDT) Hgb A1C 8.6(H) 4.2 - 5.6 % 12/08/2017 5:53 PM EDT [employer] [employer] Est. Avg Glucose 200 mg/dL 12/08/2017 5:53 PM EDT [facility] [employer], [employer] Blood Venipuncture / Unknown 12/08/2017 9:58 AM EDT 12/08/2017 9:58 AM EDT Narrative [facility] [employer] - 12/08/2017 5:53 PM EDT REFERENCE RANGE: Normal: 4.0-5.6% Pre-diabetes: 5.7-6.4% Provisional diagnosis of diabetes: >6.4% Hgb F>10% and anything which shortens red cell survival, such as hemolytic anemia, or unstable hemoglobin variants such as HbSS, HbSC, or HbCC, will lower the HbA1c value associated with a given level of glycemic control. ? Fili Sanchez MD CHEMISTRY ORDERABLES Danny jeronimo Result Performing Organization Address [facility] de Phone Number [facility] [employer] [address] , [place] [address] * (ABNORMAL) COMPREHENSIVE METABOLIC PANEL (12/08/2017 9:58 AM EDT) Pathologist [facility] Sodium 141 136 - 145 mmol/L 12/08/2017 4:52 PM EDT [facility] [employer], [employer] Potassium 4.3 3.5 - 5.0 mmol/L 12/08/2017 4:52 PM EDT [facility] [employer], [employer] Chloride 96(L) 98 - 107 mmol/L 12/08/2017 4:52 PM EDT [facility] Total CO2 30(H) 22 - 29 mmol/L 12/08/2017 4:52 PM EDT [facility] Anion Gap 15 7 - 16 mmol/L 12/08/2017 4:52 PM EDT [facility] Calcium 9.2 8.8 - 10.2 mg/dL 12/08/2017 4:52 PM EDT [facility] Glucose Lvl 238(H) 82 - 100 mg/dL 12/08/2017 4:52 PM EDT [facility] BUN 25(H) 8 - 23 mg/dL 12/08/2017 4:52 PM EDT [facility] Creatinine 1.44(H) 0.67 - 1.30 mg/dL 12/08/2017 4:52 PM EDT [facility] Albumin 4.3 3.2 - 4.6 gm/dL 12/08/2017 4:52 PM EDT [facility] Total Protein 7.4 6.4 - 8.3 gm/dL 12/08/2017 4:52 PM EDT [facility] Bili Total 0.5 0.1 - 1.4 mg/dL 12/08/2017 4:52 PM EDT [facility] ALT 18 <=41 IU/L 12/08/2017 4:52 PM EDT [facility] AST 16 <=40 IU/L 12/08/2017 4:52 PM EDT [facility] Alk Phos 53 40 - 129 IU/L 12/08/2017 4:52 PM EDT [facility], [facility] GFR Afr Am 58(L) >=60 mL/min/1.7 3 m2 12/08/2017 4:52 PM EDT [facility] GFR Non Afr Am 50(L) >=60 mL/min/1.7 3 m2 12/08/2017 4:52 PM EDT [facility] Comment: This estimated GFR [...] or muscle mass. Blood Venipuncture / Unknown 12/08/2017 9:58 AM EDT 12/08/2017 9:58 AM EDT Fili Sanchez MD CHEMISTRY ORDERABLES Fin al Result [facility] [employer] [address] [facility], [place] [address] [facility] [address] [place] [address] * (ABNORMAL) LIPID PANEL REFLEX (12/08/2017 9:58 AM EDT) [facility] Cholesterol 138 <=200 mg/dL 12/08/2017 4:52 PM EDT [facility] [employer] Comment: < 200 ?Desirable 200 - 239 ? Borderline High >= 240 ?High Triglyceride 169(H) <=150 mg/dL 12/08/2017 4:52 PM EDT [facility] [employer] Comment: < 150 ? Normal 150 - 199 ?Borderline High 200 - 499 ?High ??>= 500 ? Very High HDL 39(L) >=40 mg/dL 12/08/2017 4:52 PM EDT [facility] [employer] Comment: ??> 60 ?Optimal 40 - 60 ?Acceptable ?? < 40 ?Low LDL Calculated 65 <=100 mg/dL 12/08/2017 4:52 PM EDT [facility] [employer] Non-HDL-C Calculated 99 <=129 mg/dL 12/08/2017 4:52 PM EDT [facility] [employer] [facility] [employer] Comment: <130 ?Desirable 130-159 Above Desirable 160-189 Borderline High 190-219 High >= 220 ??Very High Blood Venipuncture / Unknown 12/08/2017 9:58 AM EDT 12/08/2017 9:58 AM EDT Fili Sanchez MD CHEMISTRY ORDERABLES Fin al Result [facility] [employer] [employer] [address] [facility], [address] [place], [place] [address] documented in this encounter Visit Diagnoses Diagnosis Uncontrolled type 2 diabetes mellitus without complication, without long-term current use of insulin documented in this encounter Care Teams Casing Tier Relationship Specialty Start Date End Date Aba Espinoza MD [address] [place] [address] PCP - General Family Medicine 07/27/16 Fili Sanchez MD [address] [facility] [address] [place] [address] Internal Medicine-Endocrinology, Diabetes & Metabolism 04/11/14 documented as of this encounter
--- OUTSIDE RECORDS SUMMARY | 2024-01-18 14:59 | XMS_ITS | Encounter Summary ---
Author Organization [place] [address] Care Team Providers Care Phone Specialist Name Role Phone Fili Sanchez MD Unavailable [phone] Aba Espinoza MD Primary Care Provider [phone] Encounter Details Date Type Department Care Team (Late Contact Info) Description 03/06/2017 Orders Only [facility] [place] 1500 [facility] [address] [place] [address] Fili Sanchez MD 1500 [facility] [address] [place] [address] Controlled type 2 diabetes mellitus without complication, [...] Encounters Date Type Department Care Team (Late Contact Info) Description 04/26/2024 9:00 AM EDT Office Visit [facility] Nephrology [place] [address] [place] [place] [address] Julio Silva MD [address] [place] [address] documented as of this encounter Results * (ABNORMAL) MICROALBUMIN/CREATININE RATIO URINE (07/19/2017 2:02 PM EDT) Urine Microalb 25.9 mg/L 07/19/2017 7:31 PM EDT [facility] Urine Creatinine 43.4 mg/dL 07/19/2017 7:31 PM EDT [facility] [employer] [employer] [employer] Ur Microalb/Creat 60(H) 0 - 30 mg/g 07/19/2017 7:31 PM EDT [facility] Urine 07/19/2017 2:02 PM EDT 07/19/2017 2:03 PM EDT Fili Sanchez MD URINE ORDERABLES Final R esult [facility] 1 [facility] [place] [address] [facility] [address] [place] [address] * THYROID STIMULATING HORMONE (07/19/2017 10:31 AM EDT) TSH 1.760 0.270 - 4.200 mcIU/mL 07/19/2017 5:57 PM EDT [employer] Blood Venipuncture / Unknown 07/19/2017 10:31 AM EDT 07/19/2017 10:31 AM EDT Narrative [facility] - 07/19/2017 5:57 PM EDT Before next petar. Ingestion of pratik doses of biotin (>5 mg/day) taken within 8 hours of drawing blood sample can interfere with this immunoassay test. Fili Sanchez MD CHEMISTRY ORDERABLES Fin al Result [facility] 1 [facility] , [place] [address] * (ABNORMAL) HEMOGLOBIN A1C (07/19/2017 10:31 AM EDT) Hgb A1C 7.4(H) <=7.0 % 07/19/2017 3:19 PM EDT [facility] Est. Avg Glucose 166 mg/dL 07/19/2017 3:19 PM EDT [employer] [employer] Blood Venipuncture / Unknown 07/19/2017 10:31 AM EDT 07/19/2017 10:31 AM EDT Narrative [facility] - 07/19/2017 3:19 PM EDT Reference Interval for Hgb A1c Hgb A1c ?Interpretation ? < 6.0 ?Non-Diabetic Range 6.0 - 7.0 ? ADA Therapeutic Target ??> 7.0 ?Action suggested Fili Sanchez MD CHEMISTRY ORDERABLES Fin al Result [facility] 1 [facility] , [place] [address] * (ABNORMAL) COMPREHENSIVE METABOLIC PANEL (07/19/2017 10:31 AM EDT) Pathologist [facility] Sodium 143 136 - 145 mmol/L 07/19/2017 6:35 PM EDT [facility] Potassium 4.5 3.5 - 5.0 mmol/L 07/19/2017 6:35 PM EDT [facility] Chloride 102 98 - 107 mmol/L 07/19/2017 6:35 PM EDT [facility] Total CO2 26 22 - 29 mmol/L 07/19/2017 6:35 PM EDT [facility] Anion Gap 15 7 - 16 mmol/L 07/19/2017 6:35 PM EDT [facility] Calcium 8.8 8.8 - 10.2 mg/dL 07/19/2017 6:35 PM EDT [facility] Glucose Lvl 147(H) 82 - 100 mg/dL 07/19/2017 6:35 PM EDT [facility] BUN 15 8 - 23 mg/dL 07/19/2017 6:35 PM EDT [facility] Creatinine 1.17 0.67 - 1.30 mg/dL 07/19/2017 6:35 PM EDT [facility] Albumin 4.1 3.2 - 4.6 gm/dL 07/19/2017 6:35 PM EDT [facility] Total Protein 7.3 6.4 - 8.3 gm/dL 07/19/2017 6:35 PM EDT [facility] Bili Total 0.3 0.1 - 1.4 mg/dL 07/19/2017 6:35 PM EDT [facility] ALT 21 <=41 IU/L 07/19/2017 6:35 PM EDT [facility] AST 23 <=40 IU/L 07/19/2017 6:35 PM EDT [facility] Alk Phos 42 40 - 129 IU/L 07/19/2017 6:35 PM EDT [facility] GFR Afr Am 75 mL/min/1.7 3 m2 07/19/2017 6:35 PM EDT [facility] GFR Non Afr Am 65 mL/min/1.7 3 m2 07/19/2017 6:35 PM EDT [facility] Comment: GFR Afr Am and GFR Non Afr Am calculated using CKD-EPI equation. ?? GFR Category ?GFR(mL/min/1.73 m??) ? Kidney Function G1 ?>=90 ?Normal or high G2 ?60-89 ? Mildly decreased G3a ? 45-59 ? Mildly to moderately decreased G3b ? 30-44 ? Moderately to severely decreased G4 ?15-29 ? Severely decreased G5 ?<15 ? Kidney Failure Blood Venipuncture / Unknown 07/19/2017 10:31 AM EDT 07/19/2017 10:31 AM EDT Narrative [facility] [employer] - 07/19/2017 6:35 PM EDT Before next petar. Filinicole Sanchez MD CHEMISTRY ORDERABLES Fin al Result [facility] 1 [facility] , [place] [address] * LIPID PANEL REFLEX (07/19/2017 10:31 AM EDT) Cholesterol 109 <=200 mg/dL 07/19/2017 5:57 PM EDT [facility] [employer] Comment: < 200 ?Desirable 200 - 239 ? Borderline High >= 240 ?High Triglyceride 86 <=150 mg/dL 07/19/2017 5:57 PM EDT [facility] Comment: < 150 ? Normal 150 - 199 ?Borderline High 200 - 499 ?High ??>= 500 ? Very High HDL 44 >=40 mg/dL 07/19/2017 5:57 PM EDT [facility] Comment: ??> 60 ?Optimal 40 - 60 ?Acceptable ?? < 40 ?Low LDL Calculated 48 <=100 mg/dL 07/19/2017 5:57 PM EDT [facility] [facility] Non-HDL-C Calculated 65 <=129 mg/dL 07/19/2017 5:57 PM EDT [facility] [employer] Comment: <130 ?Desirable 130-159 Above Desirable 160-189 Borderline High 190-219 High >= 220 ??Very High Blood Venipuncture / Unknown 07/19/2017 10:31 AM EDT 07/19/2017 10:31 AM EDT Narrative [facility] - 07/19/2017 5:57 PM EDT Before next petar. Fili Sanchez MD CHEMISTRY ORDERABLES Fin al Result [facility] 1 [facility], [place] [address] documented in this encounter Visit Diagnoses Diagnosis Controlled type 2 diabetes mellitus without complication, without long-term current use of insulin (HCC)- Primary documented in this encounter Care Teams Phone Specialist Relationship Specialty Start Date End Date Aba Espinoza MD [address] [place] [address] PCP - General Family Medicine 07/27/16 Fili Sanchez MD [address] [place] [address] Internal Medicine-Endocrinology, Diabetes & Metabolism 04/11/14 documented as of this encounter
--- OUTSIDE RECORDS SUMMARY | 2024-01-18 14:59 | XMS_ITS | Encounter Summary ---
Author Organization [place] [address] Care Team Providers Care Tick Inspector Name Role Phone Fili Sanchez MD Unavailable [phone] Aba Espinoza MD Primary Care Provider [phone] Encounter Details Date Type Department Care Team (Latest Contact Info) Description 07/27/2016 11:15 AM EDT - 07/27/2016 11:59 PM EDT Hospital Encounter [facility] [address] 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 supervisor long goods insulin use status Dyslipidemia One Time for 1 Occurrences starting 07/27/2016 until 07/27/2016 documented as of this encounter Procedures Procedure Name Priority Date/Time Associated Diagnosis Comments LDL, CALCULATED Routine 07/27/2016 11:32 AM EDT LIPID PANEL REFLEX Routine 07/27/2016 11 :32 AM EDT Dyslipidemia HEMOGLOBIN A1C Routine 07/27/2016 11:32 AM EDT Uncontrolled type 2 diabetes mellitus with complication, unspecified supervisor long goods insulin use status COMPREHENSIVE METABOLIC PANEL Routine 07/27/2016 11:32 AM EDT Uncontrolled type 2 diabetes mellitus with complication, unspecified prison insulin use status documented in this encounter Results * LDL, CALCULATED (07/27/2016 11:32 AM EDT) LDL Calculated 96 <=100 mg/dL [facility] Comment: ??< 100 ?Optimal 100 - 129 ? Near or above optimal 130 - 159 ? Borderline High 160 - 189 ? High >= 190 ?Very High Blood specimen (specimen) 07/27/2016 11:32 AM EDT 07/27/2016 2:43 PM EDT Fili Sanchez MD CHEMISTRY ORDERABLES Fin al Result Performing Organization Address [facility] de Phone Number [facility] 1 [place] [address] * LIPID PANEL REFLEX (07/27/2016 11:32 AM EDT) Cholesterol 176 <=200 mg/dL [facility] Comment: < 200 ?Desirable 200 - 239 ? Borderline High >= 240 ?High Triglyceride 108 <=150 mg/dL [facility] Comment: < 150 ? Normal 150 - 199 ?Borderline High 200 - 499 ?High ??>= 500 ? Very High HDL 58 >=40 mg/dL [facility] Comment: ?? > 60 ?Optimal 40 - 60 ?Acceptable ?? < 40 ?Low Blood specimen (specimen) UPPER LIMB STRUCTURE / Unknown 07/27/2016 11:32 AM EDT 07/27/2016 2:43 PM EDT Fili Sanchez MD CHEMISTRY ORDERABLES Fin al Result Performing Organization Address [facility] de Phone Number [facility] 1 [place] [address] * HEMOGLOBIN A1C (07/27/2016 11:32 AM EDT) Hgb A1c 7.0 <=7.0 % [facility] Comment: Reference Interval for Hgb A1c Hgb A1c ?Interpretation ? < 6.0 ?Non-Diabetic Range 6.0 - 7.0 ? ADA Therapeutic Target ??> 7.0 ? Action suggested Blood specimen (specimen) UPPER LIMB STRUCTURE / Unknown 07/27/2016 11:32 AM EDT 07/27/2016 2:43 PM EDT Fili Sanchez MD CHEMISTRY ORDERABLES Fin al Result [facility] 1 [place] [address] * (ABNORMAL) COMPREHENSIVE METABOLIC PANEL (07/27/2016 11:32 AM EDT) Sodium 136 136 - 145 mmol/L [facility] Potassium 4.7 3.5 - 5.0 mmol/L [facility] Chloride 97(L) 98 - 107 mmol/L [facility] Total CO2 26 22 - 29 mmol/L [facility] Anion Gap 13 7 - 16 mmol/L [facility] Calcium 10.0 8.8 - 10.2 mg/dL [facility] Glucose Lvl 110(H) 82 - 100 mg/dL [facility] BUN 22 8 - 23 mg/dL [facility] Creatinine 1.04 0.67 - 1.30 mg/dL [facility] Albumin 4.4 3.2 - 4.6 gm/dL [facility] Total Protein 8.3 6.4 - 8.3 gm/dL [facility] Bili Total 0.4 0.1 - 1.4 mg/dL [facility] AST 32 <=40 IU/L [facility] ALT 33 <=41 IU/L [facility] Alk Phos 56 40 - 129 IU/L [facility] GFR Afr Am >60 [facility] GFR Non Afr Am >60 [facility] Blood specimen (specimen) UPPER LIMB STRUCTURE / Unknown 07/27/2016 11:32 AM EDT 07/27/2016 2:43 PM EDT Fili Sanchez MD CHEMISTRY ORDERABLES [facility]las Result - Final [facility] 1 [place] [address] documented in this encounter Visit Diagnoses Diagnosis Uncontrolled type 2 diabetes mellitus with complication, unspecified prison insulin use status Dyslipidemia Other and unspecified hyperlipidemia documented in this encounter Care Teams Tick Inspector Relationship Specialty Start Date End Date Aba Espinoza MD [address] [place] [address] PCP - General Family Medicine 07/27/16 Fili Sanchez MD [address] [facility] [facility] [address] [place] [address] Internal Medicine-Endocrinology, Diabetes & Metabolism 04/11/14 documented as of this encounter
--- OUTSIDE RECORDS SUMMARY | 2024-01-18 14:59 | XMS_ITS | Encounter Summary ---
Author Organization [place] [address] Care Team Providers Care Mold Closer Name Role Phone Fili Sanchez MD Unavailable [phone] Steve Bourne Primary Care Provider [phone] Reason for Visit * Reason Comments Medication Refill Encounter Details Date Type Department Care Team (Late st Contact Info) Description 08/26/2015 Refill [facility] [address] [address] Fili Sanchez MD [address] [address] Medication Refill Social History Tobacco [...] Tab by mouth daily. 30 Tab 10 08/26/2015 11/19/2019 documented in this encounter Plan of Treatment Upcoming Encounters Date Type Department Care Team (Late st Contact Info) Description 04/26/2024 9:00 AM EDT Office Visit [facility] Nephrology [place] [address] [place] [address] Julio Silva MD [address] [place], [place] [phone] documented as of this encounter Visit Diagnoses Not on filedocumented in this encounter Discontinued Medications Medication Sig Discontinue Reason Start Date End Da te pantoprazole (PROTONIX) 40 mg Oral Tablet, Delayed Release (E.C.) Take 1 Tab by mouth daily. Reorder 07/29/2015 08/26/2015 documented as of this encounter Care Teams Mold Closer Relationship Specialty Start Date End Date Steve Bourne [address] [place] [address] PCP - General Family Medicine 08/15/15 07/26/16 Fili Sanchez MD [address] [facility] [address] [place] [address] Internal Medicine-Endocrinology, Diabetes & Metabolism 04/11/14 documented as of this encounter
--- OUTSIDE RECORDS SUMMARY | 2024-01-18 14:59 | XMS_ITS | Encounter Summary ---
Author Organization [place] [address] Care Team Providers Care Nitric Acid Concentrator Operator Name Role Phone Fili Sanchez MD Unavailable Steve Bourne Primary Care Provider [phone] Reason for Visit * Reason Onset Date Comments Labs Only 07/22/2016 Encounter Details Date Type Department Care Team (Late st Contact Info) Description 07/22/2016 Telephone [facility] 1500 [facility] [address] [place] [address] Fili Sanchez MD 1500 [facility] [address] [place] [address] Labs Only Social History Tobacco Use Types Packs/Day Years [...] Telephone Encounter - Sonali Don RMA - 07/26/2016 1:53 PM EDT Spoke to pt and informed him that an AIC lab is still needed for his office visit. Pt stated he will try to get it today or possibly tomorrow. He lives in [place], [place]. * Telephone Encounter - Sonali Don RMA - 07/22/2016 4:19 PM EDT Spoke with pt an asked him to get FBW for upcoming appt. Pt stated that he had BW done at [facility] in [place], [place] about 2 weeks ago. Will call and see if we can get the results faxed. Will call pt and let him know if anymore is needed. documented in this encounter Plan of Treatment Upcoming Encounters Date Type Department Care Team (Late st Contact Info) Description 04/26/2024 9:00 AM EDT Office Visit [facility] Nephrology [place] [address] [place] [address] Julio Silva MD [address] [facility] [address] [place] [address] documented as of this encounter Visit Diagnoses Not on filedocumented in this encounter Care Teams Nitric Acid Concentrator Operator Relationship Specialty Start Date End Date Steve Bourne [address] [place] [phone] PCP - General Family Medicine 08/15/15 07/26/16 Fili Sanchez MD [address] [facility] [address] [place] [address] Internal Medicine-Endocrinology, Diabetes & Metabolism 04/11/14 documented as of this encounter
--- OUTSIDE RECORDS SUMMARY | 2024-01-18 14:59 | XMS_ITS | Encounter Summary ---
Author Organization [place] [address] Care Team Providers Care Commercial Baker Helper Name Role Phone Fili Sanchez MD Unavailable [phone] Aba Espinoza MD Primary Care Provider [phone] Reason for Visit * Reason Onset Date Comments Results 07/27/2016 Encounter Details Date Type Department Care Team (Late st Contact Info) Description 07/27/2016 Telephone [facility] 1500 [facility] [address] [place] [address] Fili Sanchez MD 1500 [facility] [address] [place] [phone] Results Social History Tobacco Use Types [...] Telephone Encounter - Sonali Don RMA - 07/27/2016 5:14 PM EDT Spoke with pt and advised of Results. Pt voiced understanding. * Telephone Encounter - Sonali Don RMA - 07/27/2016 5:14 PM EDT ----- Message from Fili Sanchez MD sent at 07/27/2016 5:02 PM EDT ----- Hba1c is 7%. Advise glipizide 5 mg twice a day. Liver and kidney function tests are within the normal range. LDL/bad cholesterol is 96 mg/dl. Less than 100. Follow up in 3-4 months with Hba1c,CMP, fasting lipid panel and urinary micro- albumin before the next appointment. documented in this encounter Plan of Treatment Upcoming Encounters Date Type Department Care Team (Late st Contact Info) Description 04/26/2024 9:00 AM EDT Office Visit [facility] Nephrology [place] [address] [facility] [address] [place] [address] Julio Silva MD [address] [place] [address] documented as of this encounter Visit Diagnoses Not on filedocumented in this encounter Care Teams Commercial Baker Helper Relationship Specialty Start Date End Date Aba Espinoza MD [address] [place] [address] PCP - General Family Medicine 07/27/16 Fili Sanchez MD [address] [facility] [address] [place] [address] Internal Medicine-Endocrinology, Diabetes & Metabolism 04/11/14 documented as of this encounter
--- OUTSIDE RECORDS SUMMARY | 2024-01-18 14:59 | XMS_ITS | Encounter Summary ---
Author Organization [place] [address] Care Team Providers Care Actuarial Consultant Name Role Phone Fili Sanchez MD Unavailable [phone] Aba Espinoza MD Primary Care Provider [phone] Encounter Details Date Type Department Care Team (Latest Contact Info) Description 11/10/2016 1:38 PM EDT - 11/10/2016 11:59 PM EDT Hospital Encounter [facility] [address] 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, unspecified fci insulin use status One Time for 1 Occurrences starting 11/10/2016 until 11/10/2016 documented as of this encounter Procedures Procedure Name Priority Date/Time Associated Diagnosis Comments LDL, CALCULATED Routine 11/10/2016 1:47 PM EDT LIPID PANEL REFLEX Routine 11/10/2016 1: 47 PM EDT 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 Near or above optimal 130 - 159 ? Borderline High 160 - 189 ? High >= 190 ?Very High Blood specimen (specimen) 11/10/2016 1:47 PM EDT 11/10/2016 4:39 PM EDT Fili Sanchez MD CHEMISTRY ORDERABLES Fin al Result Performing Organization Address [facility] de Phone Number [facility] 1 [place] [address] * LIPID PANEL REFLEX (11/10/2016 1:47 PM EDT) Cholesterol 150 <=200 mg/dL [facility] Comment: < 200 ?Desirable 200 - 239 ? Borderline High >= 240 ?High Triglyceride 109 <=150 mg/dL [facility] Comment: < 150 ? Normal 150 - 199 ?Borderline High 200 - 499 ?High ??>= 500 ? Very High HDL 59 >=40 mg/dL [facility] Comment: ?? > 60 ?Optimal 40 - 60 ?Acceptable ?? < 40 ?Low Blood specimen (specimen) UPPER LIMB STRUCTURE / Unknown 11/10/2016 1:47 PM EDT 11/10/2016 4:39 PM EDT Fili Sanchez MD CHEMISTRY ORDERABLES Fin al Result Performing Organization Address [facility] de Phone Number [facility] 1 [place] [address] * HEMOGLOBIN A1C (11/10/2016 1:47 PM EDT) Hgb A1c 6.0 <=7.0 % [facility] Comment: Reference Interval for Hgb A1c Hgb A1c ?Interpretation ? < 6.0 ?Non-Diabetic Range 6.0 - 7.0 ? ADA Therapeutic Target ??> 7.0 ? Action suggested Blood specimen (specimen) UPPER LIMB STRUCTURE / Unknown 11/10/2016 1:47 PM EDT 11/10/2016 4:36 PM EDT Fili Sanchez MD CHEMISTRY ORDERABLES Fin al Result [facility] [address] [place] [address] * (ABNORMAL) COMPREHENSIVE METABOLIC PANEL (11/10/2016 1:47 PM EDT) Sodium 141 136 - 145 mmol/L [facility] Potassium 4.6 3.5 - 5.0 mmol/L [facility] Chloride 100 98 - 107 mmol/L [facility] Total CO2 26 22 - 29 mmol/L [facility] Anion Gap 15 7 - 16 mmol/L [facility] Calcium 9.8 8.8 - 10.2 mg/dL [facility] Glucose Lvl 111(H) 82 - 100 mg/dL [facility] BUN 20 8 - 23 mg/dL [facility] Creatinine 1.10 0.67 - 1.30 mg/dL [facility] Albumin 4.8(H) 3.2 - 4.6 gm/dL [facility] Total Protein 7.8 6.4 - 8.3 gm/dL [facility] Bili Total 0.5 0.1 - 1.4 mg/dL [facility] AST 26 <=40 IU/L [facility] ALT 25 <=41 IU/L [facility] Alk Phos 47 40 - 129 IU/L [facility] GFR Afr Am >60 [facility] GFR Non Afr Am >60 [facility] Blood specimen (specimen) UPPER LIMB STRUCTURE / Unknown 11/10/2016 1:47 PM EDT 11/10/2016 4:39 PM EDT Fili Sanchez MD CHEMISTRY ORDERABLES Fred duglas Result - Final [facility] 1 [place] [address] documented in this encounter Visit Diagnoses Diagnosis 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
--- OUTSIDE RECORDS SUMMARY | 2024-01-18 14:59 | XMS_ITS | Encounter Summary ---
Author Organization [place] [address] Care Team Providers Care Patient Resource Specialist Name Role Phone Fili Sanchez MD Unavailable [phone] Aba Espinoza MD Primary Care Provider [phone] Reason for Visit * Reason Comments Medication Refill Encounter Details Date Type Department Care Team (Late st Contact Info) Description 08/04/2017 Refill [facility] Physicians [facility] [address] [address] Fili Sanchez MD [address] [address] Medication Refill Social History Tobacco [...] Tablet TAKE 1 TABLET BY MOUTH TWICE DAILY. 60 Tab 08/04/2017 08/24/2017 glipiZIDE (GLUCOTROL) 5 mg Oral Tablet TAKE 1 TABLET TWICE DAILY BEFORE MEALS. 60 Tab 08/04/2017 08/24/2017 documented in this encounter Plan of Treatment Upcoming Encounters Date Type Department Care Team (Late st Contact Info) Description 04/26/2024 9:00 AM EDT Office Visit [facility] Nephrology [place] [address] [facility] [address] [place] [address] Julio Silva MD [address] [place] [address] documented as of this encounter Visit Diagnoses Not on filedocumented in this encounter Discontinued Medications Medication Sig Discontinue Reason Start Date End Da te glipiZIDE (GLUCOTROL) 5 mg Oral Tablet Take 1 Tab by mouth 2 times daily (before meals). Reorder 07/27/2016 08/04/2017 metFORMIN (GLUCOPHAGE) 1,000 mg Oral Tablet Take by mouth 2 times daily Reorder 07/27/2016 08/04/2017 documented as of this encounter Care Teams Patient Resource Specialist Relationship Specialty Start Date End Date Aba Espinoza MD [address] [place] [address] [phone] PCP - General Family Medicine 07/27/16 Fili Sanchez MD [address] [facility] [address] [place] [address] Internal Medicine-Endocrinology, Diabetes & Metabolism 04/11/14 documented as of this encounter
--- OUTSIDE RECORDS SUMMARY | 2024-01-18 14:59 | XMS_ITS | Encounter Summary ---
Author Organization [place] [address] Care Team Providers Care Fitter'S Assistant Name Role Phone Fili Sanchez MD Unavailable Steve Bourne Primary Care Provider [phone] Reason for Visit * Reason Onset Date Comments Results 08/04/2015 Encounter Details Date Type Department Care Team (Late st Contact Info) Description 08/04/2015 Telephone [facility] 1500 [facility] [address] [place] [phone] Fili Sanchez MD [address] [phone] Results Social History Tobacco Use [...] encounter Miscellaneous Notes * Telephone Encounter - Huong Thomas RN - 08/21/2015 8:31 AM EDT Letter sent to patient since patient did not read [employer] message * Telephone Encounter - Huong Gayle RN - 08/04/2015 12:49 PM EDT mychart message sent to patient. Blood work ordered * Telephone Encounter - Huong Gayle RN - 08/04/2015 12:47 PM EDT ----- Message from Fili Sanchez MD sent at 08/04/2015 12:18 PM EDT ----- Hba1c is 6.9% at goal. Cholestrol and liver and kidney function tests are normal. Follow up 3-4 months with Hba1c,CMP, fasting lipid panel before the next appointment. As discussed at the clinic visit, set up care with PCP documented in this encounter Plan of Treatment Upcoming Encounters Date Type Department Care Team (Late st Contact Info) Description 04/26/2024 9:00 AM EDT Office Visit [facility] Nephrology [place] [address] [facility] [address] [place] [address] Julio Silva MD [address] [facility] [facility] [place] [address] documented as of this encounter Visit Diagnoses Diagnosis Diabetes mellitus type 2, uncontrolled- Primary Type II or unspecified type diabetes mellitus without mention of complication, uncontrolled Dyslipidemia Other and unspecified hyperlipidemia documented in this encounter Care Teams Fitter'S Assistant Relationship Specialty Start Date End Date Steve Bourne [address] [place] [phone] PCP - General Family Medicine 08/15/15 07/26/16 Fili Sanchez MD [address] [address] Internal Medicine-Endocrinology, Diabetes & Metabolism 04/11/14 documented as of this encounter
--- OUTSIDE RECORDS SUMMARY | 2024-01-18 14:59 | XMS_ITS | Encounter Summary ---
Author Organization [place] [address] Care Team Providers Care Rug Drying Machine Operator Name Role Phone Fili Sanchez MD Unavailable [phone] Aba Espinoza MD Primary Care Provider [phone] Reason for Visit * Reason Comments Diabetes type 2 * Consultation (Routine) - Closed Specialty Diagnoses / Procedures Referred By Kadie casillas Referred To Contact Internal Medicine-Endocrinology, Diabetes & Metabolism / Diabetes Services Diagnoses Diabetes ([facility]) Steve Bourne [address] [place] [address] [place] [address] Phone: tel: fax: Fili Sanchez MD [address] [place] [phone] Phone: tel: fax: Referral ID Status Reason Start Date Expiration Date Visits Re quested Visits Authorized [id number] Closed 05/20/2016 05/20/2017 99 99 Encounter Details Date Type Department Care Team (Late st Contact Info) Description 07/27/2016 2:20 PM EDT [facility] [place] [address] [place] [phone] Fili Sanchez MD [address] [address] Controlled type 2 diabetes mellitus without complication, without long-term current use of insulin (HCC) (Primary Dx); Essential hypertension; Dyslipidemia Social History Tobacco Use [...] Sign Reading Time Taken Comments Blood Pressure 78/57 07/27/2016 2:26 PM EDT Pulse 87 07/27/2016 2:26 PM EDT Temperature - - Respiratory Rate 15 07/27/2016 2:26 PM EDT Oxygen Saturation - - Inhaled Oxygen Concentration - - Weight 105.6 kg (232 lb 12.8 oz) 07/27/2016 2:26 PM EDT Height 186.1 cm (6' 1.25 ) 07/27/2016 2:26 PM ED T Body Mass Index 30.5 07/27/2016 2:26 PM EDT documented in this encounter Ordered Prescriptions Prescription Sig Dispense Quantity Refills Last Filled Start Date End Date glipiZIDE (GLUCOTROL) 5 mg Oral Tablet Take 1 Tab by mouth 2 times daily (before meals). 180 Tab 3 07/27/2016 08/04/2017 sitaGLIPtin (JANUVIA) 50 mg Oral Tablet Take 1 Tab by mouth daily. Take one 50 mg tablet daily with breakfast. 90 Tab 3 07/27/2016 07/20/2017 metFORMIN (GLUCOPHAGE) 1,000 mg Oral Tablet Take by mouth 2 times daily 180 Tab 3 07/27/2016 08/04/2017 documented in this encounter Progress Notes * Sonali Don RMA - 07/27/2016 2:20 PM EDT Does not test BS Only tests BS when symptomatic * Fili Sanchez MD - 07/27/2016 2:20 PM EDT Pt ID: Dane Ray is a 64 y.o. male who presents today for follow up Diabetes Mellitus since 2003. Chief Complaint Patient presents with ??? Diabetes type 2 Diabetes He is here for follow up. He was last seen in the office around one year ago. He states he has beenfeeling well. States few days ago he started having chest tightness. THinks its related to acid reflux and anxiety and got better on its own. Current diabetes regimen includes Metformin 1000 mg twice a day. Glipizide 5 mg once a day Januvia 50 mg once a day. 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 Following with cardiology at [place] Review of Systems HENT: Negative. Eyes: Negative. Respiratory: Positive for shortness of breath (on exertion). Objective Objective: Vitals: 07/27/16 1426 BP: (!) 78/57 BP Location: Right arm Patient Position: Sitting Pulse: 87 Resp: 15 Weight: 232 lb 12.8 oz (105.6 kg) Height: 6' 1.25 (1.861 m) Vitals: 07/27/16 1426 Weight: 232 lb 12.8 oz (105.6 kg) Height: 6' 1.25 (1.861 m) Physical [...] is warm and dry. No rash noted. Bilateral toenail fungus on toenails Psychiatric: He has a normal mood and affect. His behavior is normal. Judgment and thought content normal. Laboratory: Lab Results Component Value Date HGBA1C 6.9 07/31/2015 Lab Results Component Value Date CREATININE 0.90 07/31/2015 No results found for: TSHREFLEX Lab Results Component Value Date ALT 23 07/31/2015 AST 25 07/31/2015 ALKPHOS 52 07/31/2015 Lab Results Component Value Date URINEMICROAL <12.0 07/31/2015 Lab Results Component Value Date CHOLESTEROL 145 07/31/2015 Lab Results Component Value Date HDL 56 07/31/2015 Lab Results Component Value Date LDLCALC 74 07/31/2015 Lab Results Component Value Date TRIG 77 07/31/2015 No results found for: CHOLHDL Assessment and Plan: 1. Diabetes Mellitus Type 2 Controlled Plan: await A1c results Continue metformin and Glipizide 5 mg a day (was on twice a day in the past) Januvia 50 mg once a day. -check fingerstick 1-2 times a day Diabetes Health Maintance: Eye exam: Advised yearly eye exam. Foot exam: 07/2016 Micro-albumin: neg screen 07/29 MATT/ARB:Losartan ASA: 81 mg once a day. Smoking: Advised to quit. 2. HTN: Losartan 3. Dyslipidemia: currently taking simvastatin 40 mg daily. Await current lab results. 4. CAD with low EF Follow up with cardiology at [place]. Bp was low at this time. Advised to call cardiolgist office. Return for 3-4 months. Labs are pending today. documented in this encounter Plan of Treatment Upcoming Encounters Date Type Department Care Team (Late st Contact Info) Description 04/26/2024 9:00 AM EDT Office Visit [facility] Nephrology [place] [address] [place] [address] Julio Silva MD [address] [place] [address] documented as of this encounter Visit Diagnoses Diagnosis Controlled type 2 diabetes mellitus without complication, without long-term current use of insulin (HCC)- Primary Essential hypertension Unspecified essential hypertension Dyslipidemia Other and unspecified hyperlipidemia documented in this encounter Discontinued Medications Medication Sig Discontinue Reason Start Date End Da te sildenafil (VIAGRA) 100 mg Oral Tablet Take 1 Tab by mouth as needed for Erectile Dysfunction. DELETE-Therapy completed 10/08/2014 07/27/2016 Tadalafil (CIALIS) 20 mg Oral Tablet Take 20 mg by mouth as needed. DELETE-Therapy completed 04/09/2015 07/27/2016 vardenafil (LEVITRA) 20 mg Oral Tablet Take 1 Tab by mouth as needed for Erectile Dysfunction. DELETE-Therapy completed 04/10/2015 07/27/2016 metFORMIN (GLUCOPHAGE) 1,000 mg Oral TabletIndications:Diabe jono mellitus type 2, uncontrolled Take by mouth 2 times daily Reorder 07/29/2015 07/27/2016 sitaGLIPtin (JANUVIA) 50 mg Oral TabletIndications:Diabe jono mellitus type 2, uncontrolled Take 1 Tab by mouth daily. Take one 50 mg tablet daily with breakfast. Reorder 07/29/2015 07/27/2016 glipiZIDE (GLUCOTROL) 5 mg Oral Tablet Take 1 Tab by mouth 2 times daily (before meals). Reorder 08/04/2015 07/27/2016 documented as of this encounter Historical Medications * This list may reflect changes made after this encounter. sacubitriL-valsar mistry (ENTRESTO) 24-26 mg Oral Tablet Take 1 Tab by mouth 2 times daily. spironolactone (ALDACTONE) 25 mg Oral Tablet Take 25 mg by mouth daily. POTASSIUM (POTASSIMIN ORAL) Take by mouth. Takes 10 meq once daily 11/06/2020 fUROsemide (LASIX) 40 mg Oral Tablet Take 40 mg by mouth daily. 11/06/2020 carvedilol (COREG) 3.125 mg Oral Tablet Take 6.25 mg by mouth 2 times daily. Takes half dose twice daily 04/05/2022 added in this encounter Care Teams Rug Drying Machine Operator Relationship Specialty Start Date End Date Aba Espinoza MD [address] [place] [phone] PCP - General Family Medicine 07/27/16 Fili Sanchez MD [address] [place] [phone] Internal Medicine-Endocrinology, Diabetes & Metabolism 04/11/14 documented as of this encounter
--- OUTSIDE RECORDS SUMMARY | 2024-01-18 14:59 | XMS_ITS | Encounter Summary ---
Author Organization [place] [address] Care Team Providers Care Milling/Polishing Operator Name Role Phone Fili Sanchez MD Unavailable [phone] Aba Espinoza MD Primary Care Provider [phone] Reason for Visit * Reason Onset Date Comments Labs Only 03/22/2017 Encounter Details Date Type Department Care Team (Late st Contact Info) Description 03/22/2017 Telephone [facility] 1500 [facility] [address] [place] [address] Fili Sanchez MD 1500 [facility] [address] [place] [phone] Labs Only Social History Tobacco Use [...] Telephone Encounter - Sonali Don RMA - 03/22/2017 4:18 PM EST LMVM for pt to get FBW for appt documented in this encounter Plan of Treatment Upcoming Encounters Date Type Department Care Team (Late st Contact Info) Description 04/26/2024 9:00 AM EDT Office Visit [facility] Nephrology [place] [address] [place] [address] Julio Silva MD [address] [place] [address] documented as of this encounter Visit Diagnoses Not on filedocumented in this encounter Care Teams Milling/Polishing Operator Relationship Specialty Start Date End Date Aba Espinoza MD [address] [place] [address] [place] [address] PCP - General Family Medicine 07/27/16 Fili Sanchez MD [address] [facility] [address] [place] [address] Internal Medicine-Endocrinology, Diabetes & Metabolism 04/11/14 documented as of this encounter
--- OUTSIDE RECORDS SUMMARY | 2024-01-18 14:59 | XMS_ITS | Encounter Summary ---
Author Organization [place] [address] Care Team Providers Care Food Service Manager Name Role Phone Fili Sanchez MD Unavailable [phone] Aba Espinoza MD Primary Care Provider [phone] Reason for Visit * Reason Onset Date Comments Medication Refill 08/05/2017 Encounter Details Date Type Department Care Team (Late st Contact Info) Description 08/05/2017 [facility]phone [facility] 1500 [facility] [address] [place] [phone] Fili Sanchez MD 1500 [facility] [address] [place] [phone] Medication Refill Social History Tobacco Use [...] encounter Miscellaneous Notes * Telephone Encounter - Catracho Murray MA - 08/24/2017 8:19 AM EDT mychart sent * Telephone Encounter - Catracho Murray MA - 08/15/2017 11:25 AM EDT Left voicemail again for patient received fax from [facility] not on patient's demographics need to know if it's okay for us to refill and send Janvia 50 mg, Simvastatin 40 mg, glipizide 5 mg, and metformin hcl 1000 mg tab. * Telephone Encounter - Yesenia Harris - 08/15/2017 10:29 AM EDT Casisa from [facility] called to see the status on the script for Janvia 50 mg, Simvastatin 40 mg, glipizide 5 mg, and metformin hcl 1000 mg tab. * Telephone Encounter - Catracho Murray MA - 08/10/2017 8:45 AM EDT Left voicemail again for patient received fax from [employer] not on patient's demographics need to know if it's okay for us to refill and send Janvia 50 mg, Simvastatin 40 mg, glipizide 5 mg, and metformin hcl 1000 mg tab. * Telephone Encounter - Catracho Murray MA - 08/05/2017 3:37 PM EDT Left voicemail for patient received fax from [employer] not on patient's demographics need to know if it's okay for us to refill and send Janvia 50 mg, Simvastatin 40 mg, glipizide 5 mg, and metformin hcl 1000 mg tab. documented in this encounter Plan of Treatment Upcoming Encounters Date Type Department Care Team (Late st Contact Info) Description 04/26/2024 9:00 AM EDT Office Visit [facility] Nephrology [place] [address] [place] [address] Julio Silva MD [address] [place] [address] documented as of this encounter Visit Diagnoses Not on filedocumented in this encounter Care Teams Food Service Manager Relationship Specialty Start Date End Date Aba Espinoza MD [address] [place] [phone] PCP - General Family Medicine 07/27/16 Fili Sanchez MD [address] [facility] [address] [place] [address] Internal Medicine-Endocrinology, Diabetes & Metabolism 04/11/14 documented as of this encounter
--- OUTSIDE RECORDS SUMMARY | 2024-01-18 14:59 | XMS_ITS | Encounter Summary ---
Author Organization [place] [address] Care Team Providers Care Dado Operator Name Role Phone Fili Sanchez MD Unavailable [phone] Aba Espinoza MD Primary Care Provider [phone] Reason for Visit * Reason Onset Date Comments Labs Only 11/09/2016 Encounter Details Date Type Department Care Team (Late st Contact Info) Description 11/09/2016 Telephone [facility] 1500 [facility] [address] [place] [phone] Fili Sanchez MD 1500 [facility] [address] [place] [phone] Labs Only Social History Tobacco Use [...] Telephone Encounter - Sonali Don RMA - 11/09/2016 10:04 AM EDT Spoke to pt about FBW for appt documented in this encounter Plan of Treatment Upcoming Encounters Date Type Department Care Team (Late st Contact Info) Description 04/26/2024 9:00 AM EDT Office Visit [facility] Nephrology [place] [address] [place] [address] Julio Silva MD [address] [place] [address] documented as of this encounter Visit Diagnoses Not on filedocumented in this encounter Care Teams Dado Operator Relationship Specialty Start Date End Date Aba Espinoza MD [address] [place] [address] PCP - General Family Medicine 07/27/16 Fili Sanchez MD [address] [facility] [address] [place] [address] Internal Medicine-Endocrinology, Diabetes & Metabolism 04/11/14 documented as of this encounter
--- OUTSIDE RECORDS SUMMARY | 2024-01-18 14:59 | XMS_ITS | Encounter Summary ---
Author Organization [place] [address] Care Team Providers Care Open Hearth Worker Name Role Phone Fili Sanchez MD Unavailable [phone] Aba Espinoza MD Primary Care Provider [phone] Encounter Details Date Type Department Care Team (Late Contact Info) Description 11/30/2017 Orders Only [facility] [place] 1500 [facility] [address] [place] [phone] Fili Sanchez MD 1500 [facility] [address] [place] [phone] Uncontrolled type 2 diabetes mellitus without [...] EDT Office Visit [facility] Nephrology [place] [address] [place] [address] Julio Silva MD [address] [facility] [address] [place] [address] documented as of this encounter Results * (ABNORMAL) THYROID STIMULATING HORMONE (12/08/2017 9:58 AM EDT) Pathologist [facility] TSH 4.260(H) 0.270 - 4.200 mcIU/mL 12/08/2017 4:52 PM EDT [facility] Blood Venipuncture / Unknown 12/08/2017 9:58 AM EDT 12/08/2017 9:58 AM EDT Narrative [facility] - 12/08/2017 4:52 PM EDT Ingestion of pratik doses of biotin (>5 mg/day) taken within 8 hours of drawing blood sample can interfere with this immunoassay test. Fili Sanchez MD CHEMISTRY ORDERABLES Fin al Result [facility] [address] [facility] , [place] [address] * (ABNORMAL) HEMOGLOBIN A1C (12/08/2017 9:58 AM EDT) [facility] Hgb A1C 8.6(H) 4.2 - 5.6 % 12/08/2017 5:53 PM EDT [facility] [employer] Est. Avg Glucose 200 mg/dL 12/08/2017 5:53 PM EDT [facility] Blood Venipuncture / Unknown 12/08/2017 9:58 AM EDT 12/08/2017 9:58 AM EDT Narrative [facility] - 12/08/2017 5:53 PM EDT REFERENCE RANGE: Normal: 4.0-5.6% Pre-diabetes: 5.7-6.4% Provisional diagnosis of diabetes: >6.4% Hgb F>10% and anything which shortens red cell survival, such as hemolytic anemia, or unstable hemoglobin variants such as HbSS, HbSC, or HbCC, will lower the HbA1c value associated with a given level of glycemic control. ? Fili Sanchez MD CHEMISTRY ORDERABLES [facility] al Result [facility] [address] [facility] , [place] [address] * (ABNORMAL) COMPREHENSIVE METABOLIC PANEL (12/08/2017 9:58 AM EDT) Sodium 141 136 - 145 mmol/L 12/08/2017 4:52 PM EDT [facility] Potassium 4.3 3.5 - 5.0 mmol/L 12/08/2017 4:52 PM EDT [facility] Chloride 96(L) 98 - 107 mmol/L 12/08/2017 [...] 16 <=40 IU/L 12/08/2017 4:52 PM EDT [facility] Alk Phos 53 40 - 129 IU/L 12/08/2017 4:52 PM EDT [facility] GFR Afr Am 58(L) >=60 mL/min/1.7 3 m2 12/08/2017 4:52 PM EDT [facility] GFR Non Afr Am 50(L) >=60 mL/min/1.7 3 m2 12/08/2017 4:52 PM EDT [facility] Comment: This estimated GFR was [...] Sanchez MD CHEMISTRY ORDERABLES Fin al Result [facility] [address] [facility], [place] [address] [facility] [address] [place] [address] * (ABNORMAL) LIPID PANEL REFLEX (12/08/2017 9:58 AM EDT) [facility] Cholesterol 138 <=200 mg/dL 12/08/2017 4:52 PM EDT [facility] Comment: < 200 ?Desirable 200 - 239 ? Borderline High >= 240 ?High Triglyceride 169(H) <=150 mg/dL 12/08/2017 4:52 PM EDT [facility] Comment: < 150 ? Normal 150 - 199 ?Borderline High 200 - 499 ?High ??>= 500 ? Very High HDL 39(L) >=40 mg/dL 12/08/2017 4:52 PM EDT [facility] Comment: ??> 60 ?Optimal 40 - 60 ?Acceptable ?? < 40 ?Low LDL Calculated 65 <=100 mg/dL 12/08/2017 4:52 PM EDT [facility] Non-HDL-C Calculated 99 <=129 mg/dL 12/08/2017 4:52 PM EDT [facility] Comment: <130 ?Desirable 130-159 Above Desirable 160-189 Borderline High 190-219 High >= 220 ??Very High Blood Venipuncture / Unknown 12/08/2017 9:58 AM EDT 12/08/2017 9:58 AM EDT Fili Sanchez MD CHEMISTRY ORDERABLES Fin al Result Performing Organization Address City/State/[facility] Co de Phone Number [facility] [address] [place] [address], [place] [address] documented in this encounter Visit Diagnoses Diagnosis Uncontrolled type 2 diabetes mellitus without complication, without long-term current use of insulin- Primary documented in this encounter Care Teams Open Hearth Worker Relationship Specialty Start Date End Date Aba Espinoza MD [address] [place] [address] PCP - General Family Medicine 07/27/16 Fili Sanchez MD [address] [place] [address] Internal Medicine-Endocrinology, Diabetes & Metabolism 04/11/14 documented as of this encounter
--- OUTSIDE RECORDS SUMMARY | 2024-01-18 14:59 | XMS_ITS | Encounter Summary ---
Author Organization [place] [address] Care Team Providers Care Traffic Maintenance Officer Name Role Phone Fili Sanchez MD Unavailable Steve Bourne Primary Care Provider [phone] Reason for Visit * Reason Onset Date Comments Lab Orders 05/20/2016 Encounter Details Date Type Department Care Team (Late st Contact Info) Description 05/20/2016 Telephone [facility] 1500 [facility] [address] [place] [address] Fili Sanchez MD 1500 [facility] [address] [place] [address] Lab Orders Social History Tobacco Use Types Packs/Day Years [...] Telephone Encounter - Huong Thomas RN - 05/20/2016 12:31 PM EDT Lab order placed per last result note * Telephone Encounter - Guerline Tinoco - 05/20/2016 11:59 AM EDT Patient called to schedule follow up. Patient is scheduled on 07-27-16. Blood work orders will need to be placed in EPIC for patient. documented in this encounter Plan of Treatment Upcoming Encounters Date Type Department Care Team (Late st Contact Info) Description 04/26/2024 9:00 AM EDT Office Visit [facility] Nephrology [place] [address] [place] [address] Julio Silva MD [address] [place] [address] documented as of this encounter Results * LIPID PANEL REFLEX (07/27/2016 11:32 AM EDT) Cholesterol 176 <=200 mg/dL [facility] Comment: < 200 ?Desirable 200 - 239 ? Borderline High >= 240 ?High Triglyceride 108 <=150 mg/dL [facility] Comment: < 150 ? Normal 150 - 199 ?Borderline High 200 - 499 ?High ??>= 500 ? Very High HDL 58 >=40 mg/dL [facility] Comment: ?? > 60 ?Optimal 40 - 60 ?Acceptable ?? < 40 ?Low Blood specimen (specimen) UPPER LIMB STRUCTURE / Unknown 07/27/2016 11:32 AM EDT 07/27/2016 2:43 PM EDT Filivinny Sanchez MD CHEMISTRY ORDERABLES Fin al Result [facility] 1 [place] [address] * (ABNORMAL) COMPREHENSIVE METABOLIC PANEL (07/27/2016 11:32 AM EDT) [facility] Sodium 136 136 - 145 mmol/L [facility] Potassium 4.7 3.5 - 5.0 mmol/L [facility] Chloride 97(L) 98 - 107 mmol/L [facility] Total CO2 26 22 - 29 mmol/L [facility] Anion Gap 13 7 - 16 mmol/L [facility] Calcium 10.0 8.8 - 10.2 mg/dL [facility] Glucose Lvl 110(H) 82 - 100 mg/dL [facility] BUN 22 8 - 23 mg/dL [facility] Creatinine 1.04 0.67 - 1.30 mg/dL [facility] Albumin 4.4 3.2 - 4.6 gm/dL [facility] Total Protein 8.3 6.4 - 8.3 gm/dL [facility] Bili Total 0.4 0.1 - 1.4 mg/dL [facility] AST 32 <=40 IU/L [facility] ALT 33 <=41 IU/L [facility] Alk Phos 56 40 - 129 IU/L [facility] GFR Afr Am >60 [facility] GFR Non Afr Am >60 [facility] Blood specimen (specimen) UPPER LIMB STRUCTURE / Unknown 07/27/2016 11:32 AM EDT 07/27/2016 2:43 PM EDT Fili Sanchez MD CHEMISTRY ORDERABLES Fred duglas Result - Final [facility] 1 [place] [address] * HEMOGLOBIN A1C (07/27/2016 11:32 AM EDT) [facility] Hgb A1c 7.0 <=7.0 % [facility] Comment: Reference Interval for Hgb A1c Hgb A1c ?Interpretation ? < 6.0 ?Non-Diabetic Range 6.0 - 7.0 ? ADA Therapeutic Target ??> 7.0 ? Action suggested Blood specimen (specimen) UPPER LIMB STRUCTURE / Unknown 07/27/2016 11:32 AM EDT 07/27/2016 2:43 PM EDT Fili Sanchez MD CHEMISTRY ORDERABLES Fin al Result Performing Organization Address City/State/[facility] Co de Phone Number [address] [address] documented in this encounter Visit Diagnoses Diagnosis Uncontrolled type 2 diabetes mellitus with complication, unspecified director long term care insulin use status- Primary Dyslipidemia Other and unspecified hyperlipidemia documented in this encounter Care Teams Traffic Maintenance Officer Relationship Specialty Start Date End Date Steve Bourne [address] [place] [address] PCP - General Family Medicine 08/15/15 07/26/16 Fili Sanchez MD [address] [facility] [address] [place] [address] Internal Medicine-Endocrinology, Diabetes & Metabolism 04/11/14 documented as of this encounter
--- OUTSIDE RECORDS SUMMARY | 2024-01-18 14:59 | XMS_ITS | Encounter Summary ---
Author Organization [place] [address] Care Team Providers Care Fairing Man Name Role Phone Fili Sanchez MD Unavailable [phone] Aba Espinoza MD Primary Care Provider [phone] Reason for Visit * Reason Comments Medication Refill Encounter Details Date Type Department Care Team (Late st Contact Info) Description 08/09/2016 Refill [facility] 1500 [facility] [address] [place] [phone] Fili Sanchez MD [address] [address] Medication Refill Social History Tobacco [...] 40 mg Oral Tablet TAKE 1 TABLET BY MOUTH AT NIGHT. 30 Tab 11 08/09/2016 08/16/2017 documented in this encounter Plan of Treatment Upcoming Encounters Date Type Department Care Team (Late st Contact Info) Description 04/26/2024 9:00 AM EDT Office Visit [facility] Nephrology [place] [address] [place] [address] Julio Silva MD [address] [place] [address] documented as of this encounter Visit Diagnoses Not on filedocumented in this encounter Discontinued Medications Medication Sig Discontinue Reason Start Date End Da te simvastatin (ZOCOR) 40 mg Oral TabletIndications:Diabete s mellitus type 2, uncontrolled Take 1 Tab by mouth nightly. Reorder 07/29/2015 08/09/2016 simvastatin (ZOCOR) 40 mg Oral Tablet TAKE ONE TABLET BY MOUTH ONCE NIGHTLY Reorder 09/15/2015 08/09/2016 documented as of this encounter Care Teams Fairing Man Relationship Specialty Start Date End Date Aba Espinoza MD [address] [place] [phone] PCP - General Family Medicine 07/27/16 Fili Sanchez MD [address] [facility] [address] [place] [address] Internal Medicine-Endocrinology, Diabetes & Metabolism 04/11/14 documented as of this encounter
--- OUTSIDE RECORDS SUMMARY | 2024-01-18 14:59 | XMS_ITS | Encounter Summary ---
Author Organization [place] [address] Care Team Providers Care Sterile Processing Tech Name Role Phone Fili Sanchez MD Unavailable [phone] Aba Espinoza MD Primary Care Provider [phone] Reason for Visit * Reason Comments Diabetes Type 2 * Consultation (Routine) - Closed Specialty Diagnoses / Procedures Referred By Kadie casillas Referred To Contact Internal Medicine-Endocrinology, Diabetes & Metabolism / Diabetes Services Diagnoses Diabetes mellitus (HCC) fu dm ty 2 - patient called for appt Procedures DM FOLLOW UP Aba Espinoza MD [address] [place] [address] [place] [address] Phone: tel: fax: Fili Sanchez MD [address] [facility] [address] [place] [address] Phone: tel: fax: Referral ID Status Reason Start Date Expiration Date Visits Re quested Visits Authorized [id number] Closed 07/20/2017 07/20/2018 99 99 Encounter Details Date Type Department Care Team (Late st Contact Info) Description 07/20/2017 10:40 AM EDT Office Visit [facility] Diabetes [place] [address] [place] [address] Fili Sanchez MD [address] [facility] [address] [place] [phone] Uncontrolled type 2 diabetes mellitus without [...] Sign Reading Time Taken Comments Blood Pressure 98/62 07/20/2017 10:38 AM EDT Pulse 73 07/20/2017 10:38 AM EDT Temperature - - Respiratory Rate 16 07/20/2017 10:3 8 AM EDT Oxygen Saturation - - Inhaled Oxygen Concentration - - Weight 124.8 kg (275 lb 3.2 oz) 018 10:38 AM EDT Height 186.1 cm (6' 1.25 ) 07/20/2017 1 0:38 AM EDT Body Mass Index 36.06 07/20/2017 10:38 AM EDT documented in this encounter Progress Notes * Erika Gill MA - 07/20/2017 10:40 AM EDT Pharmacy verified Patient rarely checks BS (a couple times a month) No Meter Today * Fili Sanchez MD - 07/20/2017 10:40 AM EDT Pt ID: Dane Ray is a 64 y.o. male who presents today for follow up Diabetes Mellitus since 2003. Chief Complaint Patient presents with ??? Diabetes Type 2 Diabetes He is here for follow up. Current diabetes regimen includes Metformin 1000 mg twice a day. Glipizide 5 mg twice a day. Januvia 50 mg once a day. 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 Following with cardiology at [facility] now at [facility]. He quit smoking. Though because of Decreased physical activity since CABG he is gaining weight. Review of Systems Constitutional: Positive for unexpected weight change. HENT: Negative. Eyes: Negative. Respiratory: Positive for shortness of breath (on exertion). Objective Objective: Vitals: 07/20/17 1038 BP: 98/62 Pulse: 73 Resp: 16 Weight: 275 lb 3.2 oz (124.8 kg) Height: 6' 1.25 (1.861 m) Physical [...] Results Component Value Date HGBA1C 7.4 (H) 07/19/2017 Lab Results Component Value Date CREATININE 1.17 07/19/2017 No results found for: TSHREFLEX Lab Results Component Value Date ALT 21 07/19/2017 AST 23 07/19/2017 ALKPHOS 42 07/19/2017 Lab Results Component Value Date URINEMICROAL 25.9 07/19/2017 Lab Results Component Value Date CHOLESTEROL 109 07/19/2017 Lab Results Component Value Date HDL 44 07/19/2017 Lab Results Component Value Date LDLCALC 48 07/19/2017 Lab Results Component Value Date TRIG 86 07/19/2017 No results found for: CHOLHDL Assessment and Plan: 1. Diabetes Mellitus Type 2 UnControlled Hba1c has increased Plan: Continue metformin and Glipizide 5 mg a day (was on twice a day in the past) Discontinue Januvia as he can not afford it because of being in Donut hole. -check fingerstick 1-2 times a day and send BS logs as he may need increase in Glipizide dose once he goes off of Januvia. Diabetes Health Maintance: Eye exam: Advised yearly eye exam. Foot exam: 07/2017 Micro-albumin: neg screen 07/29 MATT/ARB:Losartan ASA: 81 mg once a day. Smoking: Advised to quit. 2. HTN: Losartan 3. Dyslipidemia: currently taking simvastatin 40 mg daily. Goal LDL of 70. At goal. 4. CAD with low EF Follow up with cardiology at [place] and now following at [facility] . Return in about 4 months (around 11/19/2017). documented in this encounter Miscellaneous Notes * Patient Instructions - Fili Sanchez MD - 07/20/2017 10:40 AM EDT Send Blood sugars in last week of August. documented in this encounter Plan of Treatment Upcoming Encounters Date Type Department Care Team (Late st Contact Info) Description 04/26/2024 9:00 AM EDT Office Visit [facility] Nephrology [place] [address] [place] [address] Julio Silva MD [address] [facility] [address] [place] [address] documented as of this encounter Visit Diagnoses Diagnosis Uncontrolled type 2 diabetes mellitus without complication, without long-term current use of insulin- Primary Dyslipidemia Other and unspecified hyperlipidemia Essential hypertension Unspecified essential hypertension documented in this encounter Discontinued Medications Medication Sig Discontinue Reason Start Date End Da te sitaGLIPtin (JANUVIA) 50 mg Oral Tablet Take 1 Tab by mouth daily. Take one 50 mg tablet daily with breakfast. Alternate therapy 07/27/2016 07/20/2017 documented as of this encounter Historical Medications * This list may reflect changes made after this encounter. torsemide (DEMADEX) 20 mg Oral TabletIndications :Uncontrolled type 2 diabetes mellitus without complication, without long-term current use of insulin Take 20 mg by mouth daily. Takes 1/2 Pill 03/02/2017 11/06/2020 added in this encounter Care Teams Sterile Processing Tech Relationship Specialty Start Date End Date Aba Espinoza MD [address] [place] [address] PCP - General Family Medicine 07/27/16 Fili Sanchez MD [address] [facility] [address] [place] [address] Internal Medicine-Endocrinology, Diabetes & Metabolism 04/11/14 documented as of this encounter
--- OUTSIDE RECORDS SUMMARY | 2024-01-18 14:59 | XMS_ITS | Encounter Summary ---
Author Organization [place] [address] Care Team Providers Care Key Attendant Name Role Phone Fili Sanchez MD Unavailable [phone] Steve Bourne Primary Care Provider [phone] Encounter Details Date Type Department Care Team (Latest Contact Info) Description 08/19/2015 10:15 AM EDT - 08/19/2015 11:59 PM EDT Hospital Encounter [facility] [address] [place] [address] Steve Bourne [address] [place] [address] [place] [address] Polypharmacy Discharge Disposition: Home or Self Care Social [...] mg Oral Tablet Take by mouth daily. documented as of this encounter Discharge Disposition Disposition Code Departure Means Destination Home or Self Care documented in this encounter Plan of Treatment Upcoming Encounters Date Type Department Care Team (Late st Contact Info) Description 04/26/2024 9:00 AM EDT Office Visit [facility] Nephrology [place] [address] [place] [address] Julio Silva MD [address] [place] [address] documented as of this encounter Procedures Procedure Name Priority Date/Time Associated Diagnosis Comments XR CHEST PA AND LATERAL Routine 08/19/2015 10:30 AM EDT Polypharmacy documented in this encounter Results * XR CHEST PA AND LATERAL (08/19/2015 10:30 AM EDT) Anatomical Region Laterality Modality Chest Radiographic Emma ging 08/19/2015 10:3 0 AM EDT Impressions 08/19/2015 10:37 AM EDT IMPRESSION: No acute disease. Keith Naranjo Narrative 08/19/2015 10:37 AM EDT XR CHEST PA AND LATERAL 08/19/2015 History: Clinical: 64 years. Male . Z79.899-Other shelter (current) drug [id number]. . Chest pain and hypertension. Comparison: None. Findings: Heart and mediastinum are normal. There are no infiltrates, effusions, or mass lesions. Procedure Note Keith Naranjo MD - 08/19/2015 XR CHEST PA AND LATERAL 08/19/2015 History: Clinical: 64 years. Male . 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 . Chest pain and hypertension. Comparison: None. Findings: Heart and mediastinum are normal. There are no infiltrates, effusions, ormass lesions. IMPRESSION: No acute disease. Keith Naranjo Steve Bourne [facility] ORDE SHARLENE Final Result documented in this encounter Visit Diagnoses Diagnosis Polypharmacy Issue of repeat prescriptions documented in this encounter Care Teams Key Attendant Relationship Specialty Start Date End Date Steve Bourne [address] [place] [address] [phone] PCP - General Family Medicine 08/15/15 07/26/16 Fili Sanchez MD [address] [address] Internal Medicine-Endocrinology, Diabetes & Metabolism 04/11/14 documented as of this encounter
--- OUTSIDE RECORDS SUMMARY | 2024-01-18 14:59 | XMS_ITS | Encounter Summary ---
Author Organization [place] [address] Care Team Providers Care Crm Business Analyst Name Role Phone Fili Sanchez MD Unavailable [phone] Steve Bourne Primary Care Provider [phone] Reason for Visit * Reason Comments Medication Refill Encounter Details Date Type Department Care Team (Late st Contact Info) Description 09/01/2015 Refill [facility] [address] [address] Fili Sanchez MD [address] [address] Medication Refill Social History Tobacco [...] Refills Last Filled Start Date End Date losartan (COZAAR) 25 mg Oral Tablet TAKE ONE TABLET BY MOUTH DAILY 90 Tab 2 09/02/2015 11/19/2019 documented in this encounter Plan of Treatment Upcoming Encounters Date Type Department Care Team (Late st Contact Info) Description 04/26/2024 9:00 AM EDT Office Visit [facility] Nephrology [place] [address] [place] [address] Julio Silva MD [address] [place], [place] [phone] documented as of this encounter Visit Diagnoses Not on filedocumented in this encounter Discontinued Medications Medication Sig Discontinue Reason Start Date End Da te losartan (COZAAR) 25 mg Oral TabletIndications:Essentia l hypertension Take 1 Tab by mouth daily. Reorder 08/13/2014 09/01/2015 documented as of this encounter Care Teams Crm Business Analyst Relationship Specialty Start Date End Date Steve Bourne [address] [place] [address] PCP - General Family Medicine 08/15/15 07/26/16 Fili Sanchez MD [address] [facility] [address] [place] [address] Internal Medicine-Endocrinology, Diabetes & Metabolism 04/11/14 documented as of this encounter
--- OUTSIDE RECORDS SUMMARY | 2024-01-18 14:59 | XMS_ITS | Encounter Summary ---
Author Organization [place] [address] Care Team Providers Care Relay Man Name Role Phone Fili Sanchez MD Unavailable [phone] Aba Espinoza MD Primary Care Provider [phone] Encounter Details Date Type Department Care Team (Latest Contact Info) Description 07/19/2017 10:20 AM EDT - 07/19/2017 11:59 PM EDT Hospital Encounter [facility] [address] [place] [address] Controlled type 2 diabetes mellitus without [...] Description 04/26/2024 9:00 AM EDT Office Visit [facility] Nephrology [place] [address] [place] [address] Julio Silva MD [address] [place] [address] documented as of this encounter Procedures Procedure Name Priority Date/Time Associated Diagnosis Comments MICROALBUMIN/CREATININ E RATIO URINE Routine 07/19/2017 2:02 PM EDT Controlled type 2 diabetes mellitus without complication, without long-term current use of insulin (HCC) LIPID PANEL REFLEX Routine 07/19/2017 10 :31 AM EDT Controlled type 2 diabetes mellitus without complication, without long-term current use of insulin (HCC) THYROID STIMULATING HORMONE Routine 07/19/2017 10:31 AM EDT Controlled type 2 diabetes mellitus without complication, without long-term current use of insulin (HCC) HEMOGLOBIN A1C Routine 07/19/2017 10:31 AM EDT Controlled type 2 diabetes mellitus without complication, without long-term current use of insulin (HCC) COMPREHENSIVE METABOLIC PANEL Routine 07/19/2017 10:31 AM EDT Controlled type 2 diabetes mellitus without complication, without long-term current use of insulin (HCC) documented in this encounter Results * (ABNORMAL) MICROALBUMIN/CREATININE RATIO URINE (07/19/2017 2:02 PM EDT) Urine Microalb 25.9 mg/L 07/19/2017 7:31 PM EDT [facility] Urine Creatinine 43.4 mg/dL 07/19/2017 7:31 PM EDT [facility] Ur Microalb/Creat 60(H) 0 - 30 mg/g 07/19/2017 7:31 PM EDT [facility] Urine 07/19/2017 2:02 PM EDT 07/19/2017 2:03 PM EDT Fili Sanchez MD URINE ORDERABLES Final R esult Performing Organization Address [facility] de Phone Number [facility] [employer] [address] , [place] [address] [facility] [address] [place] [address] * THYROID STIMULATING HORMONE (07/19/2017 10:31 AM EDT) TSH 1.760 0.270 - 4.200 mcIU/mL 07/19/2017 5:57 PM EDT [facility] Blood Venipuncture / Unknown 07/19/2017 10:31 AM EDT 07/19/2017 10:31 AM EDT Narrative [facility] - 07/19/2017 5:57 PM EDT Before next petar. Ingestion of pratik doses of biotin (>5 mg/day) taken within 8 hours of drawing blood sample can interfere with this immunoassay test. Fili Sanchez MD CHEMISTRY ORDERABLES Fin al Result Performing Organization Address [facility] de Phone Number [facility] [address] , [place] [address] * (ABNORMAL) HEMOGLOBIN A1C (07/19/2017 10:31 AM EDT) Hgb A1C 7.4(H) <=7.0 % 07/19/2017 3:19 PM EDT [facility] Est. Avg Glucose 166 mg/dL 07/19/2017 3:19 PM EDT [facility] Blood Venipuncture / Unknown 07/19/2017 10:31 AM EDT 07/19/2017 10:31 AM EDT Narrative [facility] - 07/19/2017 3:19 PM EDT Reference Interval for Hgb A1c Hgb A1c ?Interpretation ? < 6.0 ?Non-Diabetic Range 6.0 - 7.0 ? ADA Therapeutic Target ??> 7.0 ?Action suggested Fili Sanchez MD CHEMISTRY ORDERABLES Fin al Result [facility] [address] [facility] [facility] , [place] [address] * (ABNORMAL) COMPREHENSIVE METABOLIC PANEL (07/19/2017 10:31 AM EDT) Sodium 143 136 - 145 mmol/L 07/19/2017 6:35 PM EDT [facility] Potassium 4.5 3.5 - 5.0 mmol/L 07/19/2017 [...] EDT 07/19/2017 10:31 AM EDT Narrative [facility] [employer] [email or web address] - 07/19/2017 6:35 PM EDT Before next petar. us Fili Sanchez MD CHEMISTRY ORDERABLES Fin al Result [facility] [email or web address] [address] [facility] [facility] , [place] [address] * LIPID PANEL REFLEX (07/19/2017 10:31 AM EDT) Cholesterol 109 <=200 mg/dL 07/19/2017 5:57 PM EDT [facility] [employer] [email or web address] Comment: < 200 ?Desirable 200 - 239 ? Borderline High >= 240 ?High Triglyceride 86 <=150 mg/dL 07/19/2017 5:57 PM EDT [facility] [email or web address] Comment: < 150 ? Normal 150 - 199 ?Borderline High 200 - 499 ?High ??>= 500 ? Very High HDL 44 >=40 mg/dL 07/19/2017 5:57 PM EDT [facility] Comment: ??> 60 ?Optimal 40 - 60 ?Acceptable ?? < 40 ?Low LDL Calculated 48 <=100 mg/dL 07/19/2017 5:57 PM EDT [facility] Non-HDL-C Calculated 65 <=129 mg/dL 07/19/2017 5:57 PM EDT [facility] [employer] Comment: <130 ?Desirable 130-159 Above Desirable 160-189 Borderline High 190-219 High >= 220 ??Very High Blood Venipuncture / Unknown 07/19/2017 10:31 AM EDT 07/19/2017 10:31 AM EDT Narrative [facility] [employer] - 07/19/2017 5:57 PM EDT Before next petar. Fili Sanchez MD CHEMISTRY ORDERABLES Fin al Result [facility] [employer] [address] [facility] [place], [place] [address] documented in this encounter Visit Diagnoses Diagnosis Controlled type 2 diabetes mellitus without complication, without long-term current use of insulin (HCC) documented in this encounter Care Teams Relay Man Relationship Specialty Start Date End Date Aba Espinoza MD [address] [place] [phone] PCP - General Family Medicine 07/27/16 Fili Sanchez MD [address] [facility] [address] [place] [address] Internal Medicine-Endocrinology, Diabetes & Metabolism 04/11/14 documented as of this encounter
--- OUTSIDE RECORDS SUMMARY | 2024-01-18 14:59 | XMS_ITS | Encounter Summary ---
Author Organization [place] [address] Care Team Providers Care Telemetry Technician Name Role Phone Fili Sanchez MD Unavailable [phone] Steve Bourne Primary Care Provider [phone] Reason for Referral * Stress (Routine) - Closed Specialty Diagnoses / Procedures Referred By Contac t Referred To Contact Radiology Diagnoses Other chest pain Procedures ST STRESS TEST EXERCISE Steve Bourne [address] [place] [address] Phone: tel: fax: Referral ID Status Reason Start Date Expiration Date Visits Re quested Visits Authorized [id number] Closed 08/14/2015 08/13/2016 1 1 Reason for Visit * Stress (Routine) - Closed Specialty Diagnoses / Procedures Referred By Contac t Referred To Contact Radiology Diagnoses Other chest pain Procedures ST STRESS TEST EXERCISE Steve Bourne [address] [place] [address] Phone: tel: fax: Referral ID Status Reason Start Date Expiration Date Visits Re quested Visits Authorized [id number] Closed 08/14/2015 08/13/2016 1 1 Encounter Details Date Type Department Care Team (Latest Contact Info) Description 08/19/2015 8:45 AM EDT - 08/19/2015 10:14 AM EDT Hospital Encounter COV STRESS TEST [address] [place] [address] Steve Bourne [address] [place] [address] [place] [phone] Other chest pain Discharge Disposition: Home or Self Care Social [...] 9:00 AM EDT Office Visit [facility] Nephrology [place] [address] [facility] [place] [address] Julio Silva MD [address] [address] documented as of this encounter Procedures Procedure Name Priority Date/Time Associated Diagnosis Comments SCANNED RADIOLOGY REPORT 08/19/2015 3:[address] STRESS TEST EXERCISE Routine 08/19/2015 10:22 AM EDT Other chest pain documented in this encounter Results * SCANNED RADIOLOGY REPORT (08/19/2015 3:28 PM EDT) Anatomical Region Laterality Modality Other 08/19/2015 3:28 PM EDT us Unknown Unknown IMG DIAGNOSTIC IMAGING ORDERABLE S Final Result * ST STRESS TEST EXERCISE (08/19/2015 10:22 AM EDT) Anatomical Region Laterality Modality Cardiac Stress T esting 08/19/2015 9:58 AM EDT Impressions 08/19/2015 12:28 PM EDT ? Exercise ECG Report ? [facility] ? Interpretive Statements ? Type of Test: Exercise Reason for Exam: CHEST PAIN Ordering Diagnosis: SAME Resting HR: 79 ??Peak HR: 136 Resting B/P ??104/76 ?? Peak B/P 136/72 ?? 1. METS achieved 7.8 2. WALKED 7:04___ MINUTES ON FULL ANDERSON PROTOCOL 3. Target HR achieved ??__X_ Yes ___ NO__136__HEART RATE 4. Termination of test due to FATIGUE 5. Symptoms: SL SBO 6. Imaging pending X no , REGULAR_ 7. Resting EK. Arrhythmias: 9. Conclusion: BLOOD PRESSURE RESPONSE TO EXERCISE IS NORMAL EXERCISE CAPACITY ADJUSTED FOR AGE IS GOOD COMMENT ON RESTING EKG: NORMAL sinus rhythm, possible old anterior HI ARRHYTHMIAS: OCC. PVC'S CONCLUSION: NORMAL EKG RESPONSE, NO ELECTROCARDIOGRAPHIC EVIDENCE OF ISCHEMIA. Electronically Signed On 08-19-2015 12:28:30 EDT by Dane Hope MD Narrative Procedure Note Dane Tadeo MD - 08/19/2015 IMPRESSION Exercise ECG Report [facility] Interpretive Statements Type of Test: Exercise Reason for Exam: CHEST PAIN Ordering Diagnosis: SAME Resting HR: 79 Peak HR: 136 Resting B/P 104/76 Peak B/P 136/72 1. METS achieved 7.8 2. WALKED 7:04___ MINUTES ON FULL ANDERSON PROTOCOL 3. Target HR achieved __X_ Yes ___ NO__136__HEART RATE 4. Termination of test due to FATIGUE 5. Symptoms: SL SBO 6. Imaging pending X no , REGULAR_ 7. Resting EK. Arrhythmias: 9. Conclusion: BLOOD PRESSURE RESPONSE TO EXERCISE IS NORMAL EXERCISE CAPACITY ADJUSTED FOR AGE IS GOOD COMMENT ON RESTING EKG: NORMAL sinus rhythm, possible old anterior HI ARRHYTHMIAS: OCC. PVC'S CONCLUSION: NORMAL EKG RESPONSE, NO ELECTROCARDIOGRAPHIC EVIDENCE OF ISCHEMIA. Electronically Signed On 08-19-2015 12:28:30 EDT by Dane Hope MD Steve Bourne IMG STRESS ORDERABLES Final Result documented in this encounter Visit Diagnoses Diagnosis Other chest pain documented in this encounter Historical Medications * This list may reflect changes made after this encounter. escitalopram oxalate (LEXAPRO) 20 mg Oral Tablet Take by mouth daily. added in this encounter Care Teams Telemetry Technician Relationship Specialty Start Date End Date Steve Bourne [address] [place] [place] [phone] PCP - General Family Medicine 08/15/15 07/26/16 Fili Sanchez MD [address] [facility] [address] [place] [address] Internal Medicine-Endocrinology, Diabetes & Metabolism 04/11/14 documented as of this encounter
--- OUTSIDE RECORDS SUMMARY | 2024-01-18 14:59 | XMS_ITS | Encounter Summary ---
Author Organization [place] [address] Care Team Providers Care Hand Ii Thermal Cutter Name Role Phone Fili Sanchez MD Unavailable [phone] Aba Espinoza MD Primary Care Provider [phone] Reason for Visit * Reason Comments Diabetes type 2 * Consultation (Routine) - Closed Specialty Diagnoses / Procedures Referred By Kadie casillas Referred To Contact Internal Medicine-Endocrinology, Diabetes & Metabolism / Diabetes Services Diagnoses Diabetes mellitus (HCC) fu dm ty 2 - patient called for appt Procedures DM FOLLOW UP Aba Espinoza MD [address] [place] [address] Phone: tel: fax: Fili Sanchez MD [address] [facility] [address] [place] [address] Phone: tel: fax: Referral ID Status Reason Start Date Expiration Date Visits Re quested Visits Authorized [id number] Closed 07/20/2017 07/20/2018 99 99 Encounter Details Date Type Department Care Team (Late st Contact Info) Description 12/09/2017 9:00 AM EDT Office Visit [facility] Diabetes [place] [address] [place] [address] Fili Sanchez MD [address] [facility] [address] [place] [address] Uncontrolled type 2 diabetes mellitus [...] Sign Reading Time Taken Comments Blood Pressure 111/72 12/09/2017 9:26 AM EDT Pulse 69 12/09/2017 9:26 AM EDT Temperature - - Respiratory Rate 15 12/09/2017 9:26 AM EDT Oxygen Saturation - - Inhaled Oxygen Concentration - - Weight 126.1 kg (278 lb) 12/09/2017 9:26 AM EDT Height 186.1 cm (6' 1.25 ) 12/09/2017 9:26 AM ED T Body Mass Index 36.43 12/09/2017 9:26 AM EDT documented in this encounter Ordered Prescriptions Prescription Sig Dispense Quantity Refills Last Filled Start Date End Date sitaGLIPtin (JANUVIA) 50 mg Oral Tablet Take 1 Tab by mouth daily. 90 Tab 1 12/09/2017 9 Lancets [facility] FastCLIX Lancets - use to test BS 2 x daily. E11.65 1 box 5 12/09/2017 9 ACCU-CHEK GUIDE [facility] Strip 1 Each by [facility].(Non-Drug ; Combo Route) route 2 times daily. E11.65 100 Strip 5 12/09/2017 9 documented in this encounter Progress Notes * Sonali Don, KRISTOPHER - 12/09/2017 9:00 AM EDT No meter - does not test - needs new meter Has not tested in a while Pharm verified * Fili Sanchez MD - 12/09/2017 9:00 AM EDT Pt ID: Dane Ray is a 64 y.o. male who presents today for follow up Diabetes Mellitus since 2004. Chief Complaint Patient presents with ??? Diabetes type 2 Diabetes He is here for follow up. Current diabetes regimen includes Metformin 1000 mg twice a day. Glipizide 5 mg twice a day. Stopped Januvia because of the financial reasons. Has not checked the BS for last one month. 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 Following with cardiology at [facility] now at [facility]. He quit smoking. Though because of Decreased physical activity since CABG he is gaining weight. Has gained almost 40 lbs since last year. Review of Systems Constitutional: Positive for unexpected weight change. HENT: Negative. Eyes: Negative. Respiratory: Positive for shortness of breath (on exertion). Objective Objective: Vitals: 12/09/17 0926 BP: 111/72 Pulse: 69 Resp: 15 Weight: 278 lb (126.1 kg) Height: 6' 1.25 (1.861 m) Physical [...] Laboratory: Lab Results Component Value Date HGBA1C 8.6 (H) 12/08/2017 Lab Results Component Value Date CREATININE 1.44 (H) 12/08/2017 No results found for: TSHREFLEX Lab Results Component Value Date ALT 18 12/08/2017 AST 16 12/08/2017 ALKPHOS 53 12/08/2017 Lab Results Component Value Date URINEMICROAL 25.9 07/19/2017 Lab Results Component Value Date CHOLESTEROL 138 12/08/2017 Lab Results Component Value Date HDL 39 (L) 12/08/2017 Lab Results Component Value Date LDLCALC 65 12/08/2017 Lab Results Component Value Date TRIG 169 (H) 12/08/2017 No results found for: CHOLHDL Assessment and Plan: 1. Diabetes Mellitus Type 2 UnControlled Hba1c has increased likely related to weight gain, decreased physical activity and stopping Januvia. Plan: Continue metformin and Glipizide 5 mg twice a day Restart Januvia -check fingerstick 2 times a day and send BS logs Diabetes Health Maintance: Eye exam: Advised yearly eye exam. Foot exam: 07/2017 Micro-albumin: neg screen 07/29 MATT/ARB:Losartan ASA: 81 mg once a day. Smoking: Advised to quit. 2. HTN: Losartan 3. Dyslipidemia: currently taking simvastatin 40 mg daily. Goal LDL of 70. At goal. 4. CAD with low EF Follow up with cardiology at [place] and now following at [facility] . Return for 3-4 months. documented in this encounter Miscellaneous Notes * Patient Instructions - Fili Sanchez MD - 12/09/2017 9:00 AM EDT Check BS 2 times a day. Send BS logs in case more than 150 consistently. documented in this encounter Plan of Treatment Upcoming Encounters Date Type Department Care Team (Late st Contact Info) Description 04/26/2024 9:00 AM EDT Office Visit [facility] Nephrology [place] [address] [place] [address] Julio Silva MD [address] [place] [address] documented as of this encounter Results * (ABNORMAL) MICROALBUMIN/CREATININE RATIO URINE (04/05/2018 4:48 PM EST) Urine Microalb 32.6 mg/L 04/05/2018 8:28 PM EST [email or web address] Urine Creatinine 60.0 mg/dL 04/05/2018 8:28 PM EST [facility] Ur Microalb/Creat 54(H) 0 - 30 mg/g 04/05/2018 8:28 PM EST [email or web address] Urine 04/05/2018 4:48 PM EST 04/05/2018 4:48 PM EST Fili Sanchez MD URINE ORDERABLES Final R esult [facility] [address] [facility] , [place] [address] * (ABNORMAL) HEMOGLOBIN A1C (04/05/2018 4:48 PM EST) Hgb A1C 8.2(H) 4.2 - 5.6 % 04/05/2018 8:13 PM EST [facility] Est. Avg Glucose 189 mg/dL 04/05/2018 8:13 PM EST [email or web address] Blood Venipuncture / Unknown 04/05/2018 4:48 PM EST 04/05/2018 4:48 PM EST Narrative [facility] - 04/05/2018 8:13 PM EST REFERENCE RANGE: [...] Result [facility] [address] [facility] , [place] [address] * (ABNORMAL) COMPREHENSIVE METABOLIC PANEL (04/05/2018 4:48 [...] IU/L 04/05/2018 8:20 PM EST [facility] AST 26 <=40 IU/L 04/05/2018 8:20 PM EST [facility] Alk Phos 49 40 - 129 IU/L 04/05/2018 8:20 PM EST [facility] GFR Afr Am 56(L) >=60 mL/min/1.7 3 m2 04/05/2018 8:20 PM EST [facility] GFR Non Afr Am 48(L) >=60 mL/min/1.7 3 m2 04/05/2018 8:20 PM EST [facility] Comment: This estimated GFR was calculated [...] Sanchez MD CHEMISTRY ORDERABLES Fin al Result [facility] [address] [facility], [place] [address] [facility] [address] [place] [address] * (ABNORMAL) LIPID PANEL REFLEX (04/05/2018 4:48 PM EST) Cholesterol 155 <=200 mg/dL 04/05/2018 8:20 PM EST [facility] Comment: < 200 ?Desirable 200 - 239 ? Borderline High >= 240 ?High Triglyceride 221(H) <=150 mg/dL 04/05/2018 8:20 PM EST [facility] Comment: < 150 ? Normal 150 - 199 ?Borderline High 200 - 499 ?High ??>= 500 ? Very High HDL 43 >=40 mg/dL 04/05/2018 8:20 PM EST [facility] Comment: ??> 60 ?Optimal 40 - 60 ?Acceptable ?? < 40 ?Low LDL Calculated 68 <=100 mg/dL 04/05/2018 8:20 PM EST [facility] Non-HDL-C Calculated 112 <=129 mg/dL 04/05/2018 8:20 PM EST [facility] Comment: <130 ?Desirable 130-159 Above Desirable 160-189 Borderline High 190-219 High >= 220 ??Very High Fasting Specimen? Yes None 019 8:20 PM EST [facility] Blood Venipuncture / Unknown 04/05/2018 4:48 PM EST 04/05/2018 4:48 PM EST Fili Sanchez MD CHEMISTRY ORDERABLES Fin al Result [facility] [address] [facility], [place] [address] documented in this encounter Visit Diagnoses Diagnosis Uncontrolled type 2 diabetes mellitus without complication, without long-term current use of insulin- Primary Dyslipidemia Other and unspecified hyperlipidemia Essential hypertension Unspecified essential hypertension documented in this encounter Discontinued Medications Medication Sig Discontinue Reason Start Date End Da te Blood Sugar Diagnostic Misc Strip Test blood sugar up to 2 x daily Alternate therapy 07/29/2016 12/09/2017 documented as of this encounter Care Teams Hand Ii Thermal Cutter Relationship Specialty Start Date End Date Aba Espinoza MD [address] [place] [phone] PCP - General Family Medicine 07/27/16 Fili Sanchez MD [address] [place] [address] Internal Medicine-Endocrinology, Diabetes & Metabolism 04/11/14 documented as of this encounter
--- OUTSIDE RECORDS SUMMARY | 2024-01-18 14:59 | XMS_ITS | Encounter Summary ---
Author Organization 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 < 6.0 ?Non-Diabetic Range 6.0 - 7.0 ? ADA Therapeutic Target ??> 7.0 ? Action suggested Blood specimen (specimen) UPPER LIMB STRUCTURE / Unknown 11/10/2016 1:47 PM EDT 11/10/2016 4:36 PM EDT Filinicole Sanchez MD CHEMISTRY ORDERABLES Fin al Result [facility] [address] [place] [address] * (ABNORMAL) COMPREHENSIVE METABOLIC PANEL (11/10/2016 1:47 PM EDT) [facility] Sodium 141 136 - 145 mmol/L [facility] Potassium 4.6 3.5 - 5.0 mmol/L [facility] Chloride 100 98 - 107 mmol/L [facility] Total CO2 26 22 - 29 mmol/L [facility] Anion Gap 15 7 - 16 mmol/L [facility] Calcium 9.8 8.8 - 10.2 mg/dL [facility] Glucose Lvl 111(H) 82 - 100 mg/dL [facility] BUN 20 8 - 23 mg/dL [facility] Creatinine 1.10 0.67 - 1.30 mg/dL [facility] Albumin 4.8(H) 3.2 - 4.6 gm/dL [facility] Total Protein 7.8 6.4 - 8.3 gm/dL [facility] Bili Total 0.5 0.1 - 1.4 mg/dL [facility] AST 26 <=40 IU/L [facility] ALT 25 <=41 IU/L [facility] Alk Phos 47 40 - 129 IU/L [facility] GFR Afr Am >60 [facility] GFR Non Afr Am >60 [facility] Blood specimen (specimen) UPPER LIMB STRUCTURE / Unknown 11/10/2016 1:47 PM EDT 11/10/2016 4:39 PM EDT Fili Sanchez MD CHEMISTRY ORDERABLES Fred duglas Result - Final [facility] [address] [place] [address] * LIPID PANEL REFLEX (11/10/2016 1:47 PM EDT) Cholesterol 150 <=200 mg/dL [facility] Comment: < 200 ?Desirable 200 - 239 ? Borderline High >= 240 ?High Triglyceride 109 <=150 mg/dL [facility] Comment: < 150 ? Normal 150 - 199 ?Borderline High 200 - 499 ?High ??>= 500 ? Very High HDL 59 >=40 mg/dL [facility] Comment: ?? > 60 ?Optimal 40 - 60 ?Acceptable ?? 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
--- OUTSIDE RECORDS SUMMARY | 2024-01-18 14:59 | XMS_ITS | Encounter Summary ---
Author Organization [place] [address] Care Team Providers Care Manager Process Improvement Name Role Phone Fili Sanchez MD Unavailable [phone] Aba Espinoza MD Primary Care Provider [phone] Reason for Visit * Reason Comments Medication Refill Encounter Details Date Type Department Care Team (Late st Contact Info) Description 08/16/2017 Refill [facility]icians [facility] 1500 [facility] [address] [place] [phone] Fili Sanchez MD [address] [address] Medication Refill Social History Tobacco [...] TABLET BY MOUTH AT NIGHT. 30 Tab 4 08/16/2017 08/24/2017 documented in this encounter Plan of Treatment Upcoming Encounters Date Type Department Care Team (Late st Contact Info) Description 04/26/2024 9:00 AM EDT Office Visit [facility] Nephrology [place] [address] [place] [address] Julio Silva MD [address] [place] [address] documented as of this encounter Visit Diagnoses Not on filedocumented in this encounter Discontinued Medications Medication Sig Discontinue Reason Start Date End Da te simvastatin (ZOCOR) 40 mg Oral Tablet TAKE 1 TABLET BY MOUTH AT NIGHT. Reorder 08/09/2016 08/16/2017 documented as of this encounter Care Teams Manager Process Improvement Relationship Specialty Start Date End Date Aba Espinoza MD [address] [place] [phone] PCP - General Family Medicine 07/27/16 Fili Sanchez MD [address] [facility] [address] [place] [address] Internal Medicine-Endocrinology, Diabetes & Metabolism 04/11/14 documented as of this encounter
--- OUTSIDE RECORDS SUMMARY | 2024-01-18 14:59 | XMS_ITS | Encounter Summary ---
Author Organization [place] [address] Care Team Providers Care Sfdc Solution Architect Name Role Phone Fili Sanchez MD Unavailable [phone] Steve Bourne Primary Care Provider [phone] Reason for Visit * Reason Comments Medication Refill Encounter Details Date Type Department Care Team (Late st Contact Info) Description 09/13/2015 Refill [facility] 1500 [facility] [address] [place] [phone] Fili Sanchez MD [address] [address] Medication Refill Social History Tobacco [...] ONE TABLET BY MOUTH ONCE NIGHTLY 90 Tab 2 09/15/2015 7 documented in this encounter Plan of Treatment Upcoming Encounters Date Type Department Care Team (Late st Contact Info) Description 04/26/2024 9:00 AM EDT Office Visit [facility] Nephrology [place] [address] [place] [address] Julio Silva MD [address] [place] [address] documented as of this encounter Visit Diagnoses Not on filedocumented in this encounter Care Teams Sfdc Solution Architect Relationship Specialty Start Date End Date Steve Bourne [address] [place] [address] PCP - General Family Medicine 08/15/15 07/26/16 Fili Sanchez MD [address] [facility] [address] [place] [address] Internal Medicine-Endocrinology, Diabetes & Metabolism 04/11/14 documented as of this encounter
--- OUTSIDE RECORDS SUMMARY | 2024-01-18 14:59 | XMS_ITS | Encounter Summary ---
Author Organization [place] [address] Care Team Providers Care Hand Twister Name Role Phone Fili Sanchez MD Unavailable [phone] Aba Espinoza MD Primary Care Provider [phone] Reason for Visit * Reason Comments Diabetes * Consultation (Routine) - Closed Specialty Diagnoses / Procedures Referred By Kadie casillas Referred To Contact Internal Medicine-Endocrinology, Diabetes & Metabolism / Diabetes Services Diagnoses Diabetes ([facility]) Steve Bourne [address] [place] [address] [place] [address] Phone: tel: fax: Fili Sanchez MD [address] [place] [address] [place] [address] Phone: tel: fax: Referral ID Status Reason Start Date Expiration Date Visits Re quested Visits Authorized [id number] Closed 05/20/2016 05/20/2017 99 99 Encounter Details Date Type Department Care Team (Late st Contact Info) Description 11/11/2016 11:40 AM EDT Office Visit [facility] Diabetes [place] [address] [place] [address] [place] [address] Fili Sanchez MD [address] [place] [address] [place] [address] Controlled type 2 diabetes mellitus without complication, [...] Sign Reading Time Taken Comments Blood Pressure 124/80 11/11/2016 11:53 AM EDT Pulse 64 11/11/2016 11:53 AM EDT Temperature - - Respiratory Rate 14 11/11/2016 11:5 3 AM EDT Oxygen Saturation - - Inhaled Oxygen Concentration - - Weight 117.6 kg (259 lb 4.8 oz) 017 11:53 AM EDT Height 186.1 cm (6' 1.25 ) 11/11/2016 1 1:53 AM EDT Body Mass Index 33.98 11/11/2016 11:53 AM EDT documented in this encounter Progress Notes * Cassia Kaminski MA - 11/11/2016 11:40 AM EDT Patient is testing blood sugars 2 times per month Pharmacy verified No refills needed * Fili Sanchez MD - 11/11/2016 11:40 AM EDT Pt ID: Dane Ray is a 64 y.o. male who presents today for follow up Diabetes Mellitus since 2003. Chief Complaint Patient presents with ??? Diabetes Diabetes He is here for follow up. Current diabetes regimen includes Metformin 1000 mg twice a day. Glipizide 5 mg once a day Januvia 50 mg once a day. 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 Following with cardiology at [facility] now at [facility]. He quit smoking. Though because of Decreased physical activity since CABG he is gaining weight. Review of Systems HENT: Negative. Eyes: Negative. Respiratory: Positive for shortness of breath (on exertion). Objective Objective: Vitals: 11/11/16 1153 BP: 124/80 Pulse: 64 Resp: 14 Weight: 259 lb 4.8 oz (117.6 kg) Height: 6' 1.25 (1.861 m) Physical [...] Laboratory: Lab Results Component Value Date HGBA1C 6.0 11/10/2016 Lab Results Component Value Date CREATININE 1.10 11/10/2016 No results found for: TSHREFLEX Lab Results Component Value Date ALT 25 11/10/2016 AST 26 11/10/2016 ALKPHOS 47 11/10/2016 Lab Results Component Value Date URINEMICROAL <12.0 07/31/2015 Lab Results Component Value Date CHOLESTEROL 150 11/10/2016 Lab Results Component Value Date HDL 59 11/10/2016 Lab Results Component Value Date LDLCALC 69 11/10/2016 Lab Results Component Value Date TRIG 109 11/10/2016 No results found for: CHOLHDL Assessment and Plan: 1. Diabetes Mellitus Type 2 Controlled Plan: Continue metformin and Glipizide 5 mg [...] low EF Follow up with cardiology at [place] and now following at [facility] too. Return for 4-5 month. documented in this encounter Plan of Treatment Upcoming Encounters Date Type Department Care Team (Late st Contact Info) Description 04/26/2024 9:00 AM EDT Office Visit [facility] Nephrology [place] [address] [place] [address] Julio Silva MD [address] [place] [address] documented as of this encounter Visit Diagnoses Diagnosis Controlled type 2 diabetes mellitus without complication, without long-term current use of insulin (HCC)- Primary Dyslipidemia Other and unspecified hyperlipidemia Essential hypertension Unspecified essential hypertension documented in this encounter Care Teams Hand Twister Relationship Specialty Start Date End Date Aba Espinoza MD [address] [place] [address] [place] [id number] PCP - General Family Medicine 07/27/16 Fili Sanchez MD [address] [facility] [address] [place] [address] Internal Medicine-Endocrinology, Diabetes & Metabolism 04/11/14 documented as of this encounter
--- OUTSIDE RECORDS SUMMARY | 2024-01-18 14:59 | XMS_ITS | Encounter Summary ---
Author Organization [place] [address] Care Team Providers Care Waiter/Waitress Head Name Role Phone Fili Sanchez MD Unavailable [phone] Aba Espinoza MD Primary Care Provider [phone] Reason for Visit * Reason Onset Date Comments Medication Refill 08/24/2017 Encounter Details Date Type Department Care Team (Late st Contact Info) Description 08/24/2017 [facility] [address] [address] Fili Sanchez MD [address] [address] Medication Refill Social History Tobacco [...] 1 Tab by mouth 2 times daily. 180 Tab 3 08/24/2017 08/01/2018 glipiZIDE (GLUCOTROL) 5 mg Oral Tablet TAKE 1 TABLET TWICE DAILY BEFORE MEALS. 180 Tab 3 08/24/2017 08/01/2018 simvastatin (ZOCOR) 40 mg Oral Tablet Take 1 Tab by mouth nightly. 90 Tab 3 08/24/2017 08/23/2018 documented in this encounter Miscellaneous Notes * Telephone Encounter - Erika Gill MA - 08/24/2017 4:25 PM EDT This was completed by Cassia Kennedy * Telephone Encounter - Yesenia Harris - 08/24/2017 10:02 [place] [address] [address] [facility] [phone] called to have a new script of simvastatin (ZOCOR) 40 mg Oral Tablet, glipiZIDE (GLUCOTROL) 5 mg Oral Tablet and metFORMIN (GLUCOPHAGE) 1,000 mg Oral Tablet sent over as a 90 day supply. documented in this encounter Plan of Treatment Upcoming Encounters Date Type Department Care Team (Late st Contact Info) Description 04/26/2024 9:00 AM EDT Office Visit [facility] Nephrology [place] [address] [facility] [address] [facility] [address] [place] [address] Julio Silva MD [address] [place] [address] documented as of this encounter Visit Diagnoses Not on filedocumented in this encounter Discontinued Medications Medication Sig Discontinue Reason Start Date End Da te simvastatin (ZOCOR) 40 mg Oral Tablet TAKE 1 TABLET BY MOUTH AT NIGHT. Reorder 08/16/2017 08/24/2017 glipiZIDE (GLUCOTROL) 5 mg Oral Tablet TAKE 1 TABLET TWICE DAILY BEFORE MEALS. Reorder 08/04/2017 08/24/2017 metFORMIN (GLUCOPHAGE) 1,000 mg Oral Tablet TAKE 1 TABLET BY MOUTH TWICE DAILY. Reorder 08/04/2017 08/24/2017 documented as of this encounter Care Teams Waiter/Waitress Head Relationship Specialty Start Date End Date Aba Espinoza MD [address] [place] [address] [place] [address] PCP - General Family Medicine 07/27/16 Fili Sanchez MD [address] [facility] [address] [place] [address] Internal Medicine-Endocrinology, Diabetes & Metabolism 04/11/14 documented as of this encounter
--- OUTSIDE RECORDS SUMMARY | 2024-01-18 15:00 | XMS_ITS | Encounter Summary ---
Author Organization [place] [address] Care Team Providers Care Child Nurse Name Role Phone Fili Sanchez MD Unavailable [phone] Reason for Visit * Reason Onset Date Comments Medication Refill 06/03/2014 Encounter Details Date Type Department Care Team (Late st Contact Info) Description 06/03/2014 [facility] [place] [place] [address] [facility] [address] [place] [address] Fili Sanchez MD [address] [phone] Medication Refill Social History Tobacco Use Types Packs/Day Years Used Date Smoking Tobacco: Every Day Cigarettes Smokeless Tobacco: Never Alcohol Use Standard Drinks/Week Comments Yes 0 (1 standard drink = 0.6 oz pur e alcohol) 0-1 WEEKLY Sex and Gender Information Value Date Recorded [...] one 50 mg tablet daily with breakfast. 30 Tab 11 06/03/2014 08/13/2014 documented in this encounter Miscellaneous Notes * Telephone Encounter - Sonali Don RMA - 06/03/2014 5:19 PM EDT RX clarified with Dr. Sanchez. New Rx was sent to Pharmacy for Januvia 50 mg tab daily with breakfast. * Telephone Encounter - Maribell Molina - 06/03/2014 3:31 PM EDT Ino with [facility] [place] [address] [address] [facility] [phone] needs clarification on the directions on the script for Januvia. documented in this encounter Plan of Treatment Upcoming Encounters Date Type Department Care Team (Late st Contact Info) Description 04/26/2024 9:00 AM EDT Office Visit [facility] Nephrology [place] [address] [address] Julio Silva MD [address] [facility] [address] [place] [address] documented as of this encounter Visit Diagnoses Not on filedocumented in this encounter Care Teams Child Nurse Relationship Specialty Start Date End Date Fili Sanchez MD [address] [facility] [address] [place] [address] Internal Medicine-Endocrinology, Diabetes & Metabolism 04/11/14 documented as of this encounter
--- OUTSIDE RECORDS SUMMARY | 2024-01-18 15:00 | XMS_ITS | Encounter Summary ---
Author Organization [place] [address] Care Team Providers Care Cytogenetic Technologist Name Role Phone Fili Sanchez MD Unavailable Reason for Visit * Reason Comments Medication Refill Encounter Details Date Type Department Care Team (Late st Contact Info) Description 08/02/2015 Refill [facility] Physicians [facility] Diabetes [place] [address] [facility] [address] [place] [address] Fili Sanchez MD [address] [facility] [address] [place] [phone] Medication Refill Social History Tobacco Use [...] times daily (before meals). 180 Tab 3 08/04/2015 07/27/2016 documented in this encounter Plan of Treatment Upcoming Encounters Date Type Department Care Team (Late st Contact Info) Description 04/26/2024 9:00 AM EDT Office Visit [facility] Nephrology [place] [address] [place] [address] Julio Silva MD [address] [place] [address] documented as of this encounter Visit Diagnoses Not on filedocumented in this encounter Discontinued Medications Medication Sig Discontinue Reason Start Date End Da te glipiZIDE (GLUCOTROL) 5 mg Oral TabletIndications:Diabetes mellitus type 2, uncontrolled Take 1 Tab by mouth 2 times daily (before meals). Reorder 08/13/2014 08/02/2015 documented as of this encounter Care Teams Cytogenetic Technologist Relationship Specialty Start Date End Date Fili Sanchez MD [address] [facility] [address] [place] [address] Internal Medicine-Endocrinology, Diabetes & Metabolism 04/11/14 documented as of this encounter
--- OUTSIDE RECORDS SUMMARY | 2024-01-18 15:00 | XMS_ITS | Encounter Summary ---
Author Organization [place] [address] Care Team Providers Care Biomass Plant Technician Name Role Phone Fili Sanchez MD Unavailable Reason for Visit * Reason Onset Date Comments Labs Only 07/25/2015 Encounter Details Date Type Department Care Team (Late st Contact Info) Description 07/25/2015 Telephone [facility] Diabetes [place] [address] [facility] [address] [place] [address] Fili Sanchez MD [address] [facility] [address] [place] [phone] Labs Only Social History Tobacco Use [...] encounter Miscellaneous Notes * Telephone Encounter - Kristina Coppola CMA - 07/25/2015 2:16 PM EDT Left message in regards to blood work prior to office visit. Reminded to bring medications and meter. . documented in this encounter Plan of Treatment Upcoming Encounters Date Type Department Care Team (Late st Contact Info) Description 04/26/2024 9:00 AM EDT Office Visit [facility] Nephrology [place] [address] [facility] [address] [place] [address] Julio Silva MD [address] [facility] [address] [facility] [address] [place] [address] documented as of this encounter Visit Diagnoses Not on filedocumented in this encounter Care Teams Biomass Plant Technician Relationship Specialty Start Date End Date Fili Sanchez MD [address] [facility] [address] [place] [address] Internal Medicine-Endocrinology, Diabetes & Metabolism 04/11/14 documented as of this encounter
--- OUTSIDE RECORDS SUMMARY | 2024-01-18 15:00 | XMS_ITS | Encounter Summary ---
Author Organization [place] [address] Care Team Providers Care Lead Housekeeper Name Role Phone Fili Sanchez MD Unavailable [phone] Reason for Visit * Reason Onset Date Comments Medication Problem 04/10/2015 Encounter Details Date Type Department Care Team (Late st Contact Info) Description 04/10/2015 Telephone [facility] [address] [address] Tariq Elizondo MD [address] [facility] [place] [phone] Medication Problem Social History Tobacco Use Types Packs/Day Years [...] Refills Last Filled Start Date End Date vardenafil (LEVITRA) 20 mg Oral Tablet Take 1 Tab by mouth as needed for Erectile Dysfunction. 15 Tab 11 04/10/2015 7 documented in this encounter Miscellaneous Notes * Telephone Encounter - Tariq Elizondo MD - 04/10/2015 1:03 PM EST Rx sent * Telephone Encounter - BearGabby - 04/10/2015 12:57 PM EST Patient apologizes but he said that his pharmacy called and said his Cialis is not approved but he is able to have Levitra, even though he received a letter from his insurance company stating the opposite. Patient wants to know if you can send a prescription for the Levitra in to his pharmacy, and if you can put 15 tablets instead of 10? documented in this encounter Plan of Treatment Upcoming Encounters Date Type Department Care Team (Late st Contact Info) Description 04/26/2024 9:00 AM EDT Office Visit [facility] Nephrology [place] [address] [place] [address] Julio Silva MD [address] [address] [place] [address] documented as of this encounter Visit Diagnoses Not on filedocumented in this encounter Discontinued Medications Medication Sig Discontinue Reason Start Date End Da te vardenafil (LEVITRA) 20 mg Oral TabletIndications:Male erectile disorder,Screening PSA (prostate specific antigen),Diabetes mellitus type 2, uncontrolled Take 1 Tab by mouth as needed for Erectile Dysfunction. Cancelled by 10/03/2014 04/10/2015 documented as of this encounter Care Teams Lead Housekeeper Relationship Specialty Start Date End Date Fili Sanchez MD [address] [facility] [address] [place] [address] Internal Medicine-Endocrinology, Diabetes & Metabolism 04/11/14 documented as of this encounter
--- OUTSIDE RECORDS SUMMARY | 2024-01-18 15:00 | XMS_ITS | Encounter Summary ---
Author Organization [place] [address] Care Team Providers Care Day Trader Name Role Phone Fili Sanchez MD Unavailable [phone] Reason for Visit * Reason Onset Date Comments Medication Refill 08/13/2014 Encounter Details Date Type Department Care Team (Late st Contact Info) Description 08/13/[address] [facility] [place] [address] [facility] [address] [place] [phone] Fili Sanchez MD [address] [facility] [address] [place] [phone] Medication Refill Social History Tobacco Use [...] End Date glipiZIDE (GLUCOTROL) 5 mg Oral TabletIndications:D iabetes mellitus type 2, uncontrolled Take 1 Tab by mouth 2 times daily (before meals). 180 Tab 2 08/13/2014 08/02/2015 documented in this encounter Miscellaneous Notes * Telephone Encounter - Claudia Padgett LPN - 08/13/2014 4:59 PM EDT Resent prescription. Pharmacy aware. * Telephone Encounter - Maribell Molina - 08/13/2014 4:20 PM EDT Susan with [facility] [address] [address] [address] - [phone] called to verify the script for Glipizide for patient. Susan stated there are 2 sets of directions. documented in this encounter Plan of Treatment Upcoming Encounters Date Type Department Care Team (Late st Contact Info) Description 04/26/2024 9:00 AM EDT Office Visit [facility] Nephrology [place] [address] [facility] [address] [address] Julio Silva MD [address] [facility] [facility] [address] [facility] 202 [place] [address] documented as of this encounter Visit Diagnoses Diagnosis Diabetes mellitus type 2, uncontrolled- Primary Type II or unspecified type diabetes mellitus without mention of complication, uncontrolled documented in this encounter Discontinued Medications Medication Sig Discontinue Reason Start Date End Da te glipiZIDE (GLUCOTROL) 5 mg Oral TabletIndications:Diabetes mellitus type 2, uncontrolled Take 1 Tab by mouth 2 times daily (before meals). Takes one tab daily Reorder 08/13/2014 08/13/2014 documented as of this encounter Care Teams Day Trader Relationship Specialty Start Date End Date Fili Sanchez MD [address] [facility] [address] [place] [address] Internal Medicine-Endocrinology, Diabetes & Metabolism 04/11/14 documented as of this encounter
--- OUTSIDE RECORDS SUMMARY | 2024-01-18 15:00 | XMS_ITS | Encounter Summary ---
Author Organization [place] [address] Care Team Providers Care Mass Communications Professor Name Role Phone Fili Sanchez MD Unavailable Reason for Visit * Reason Onset Date Comments Cancellation 07/15/2014 Encounter Details Date Type Department Care Team (Late st Contact Info) Description 07/15/2014 Telephone [facility] [address] [facility] [address] [place] [phone] Fili Sanchez MD [address] [facility] [address] [place] [phone] Cancellation Social History Tobacco Use Types Packs/Day [...] Telephone Encounter - Sonali Don RMA - 07/18/2014 2:12 PM EDT Noted. No recent labs for review. * Telephone Encounter - Sola Acosta - 07/15/2014 8:24 AM EDT Patient cancelled today's appointment with Dr Robertson, 07/15/14, call in to work. Cancelled via My Chart on 07/15/14. documented in this encounter Plan of Treatment Upcoming Encounters Date Type Department Care Team (Late st Contact Info) Description 04/26/2024 9:00 AM EDT Office Visit [facility] Nephrology [place] [address] [facility] [address] [place] [address] Julio Silva MD [address] [facility] [address] [place] [address] documented as of this encounter Visit Diagnoses Not on filedocumented in this encounter Care Teams Mass Communications Professor Relationship Specialty Start Date End Date Fili Sanchez MD [address] [facility] [address] [place] [address] Internal Medicine-Endocrinology, Diabetes & Metabolism 04/11/14 documented as of this encounter
--- OUTSIDE RECORDS SUMMARY | 2024-01-18 15:00 | XMS_ITS | Encounter Summary ---
Author Organization [place] [address] Care Team Providers Care Data Reduction Technician Name Role Phone Fili Sanchez MD Unavailable [phone] Reason for Visit * Reason Onset Date Comments Visit Follow Up 10/09/2014 Encounter Details Date Type Department Care Team (Late st Contact Info) Description 10/09/2014 Telephone [facility] [address] [address] Abril Stoner RMA Visit Follow Up Social History Tobacco Use Types Packs/Day Years [...] Miscellaneous Notes * Telephone Encounter - Abril Stoner RMA - 10/09/2014 10:12 AM EDT Patient states visit good documented in this encounter Plan of Treatment Upcoming Encounters Date Type Department Care Team (Late st Contact Info) Description 04/26/2024 9:00 AM EDT Office Visit [facility] Nephrology [place] [address] [place] [address] Julio Silva MD [address] [place] [address] documented as of this encounter Visit Diagnoses Not on filedocumented in this encounter Care Teams Data Reduction Technician Relationship Specialty Start Date End Date Fili Sanchez MD [address] [facility] [address] [place] [address] Internal Medicine-Endocrinology, Diabetes & Metabolism 04/11/14 documented as of this encounter
--- OUTSIDE RECORDS SUMMARY | 2024-01-18 15:00 | XMS_ITS | Encounter Summary ---
Author Organization [place] [address] Care Team Providers Care Poultry Service Technician Name Role Phone Fili Sanchez MD Unavailable [phone] Reason for Visit * Reason Comments Diabetes Encounter Details Date Type Department Care Team (Late st Contact Info) Description 08/13/2014 3:20 PM EDT [facility] [place] 1500 [facility] [address] [place] [phone] Fili Sanchez MD 1500 [facility] [address] [place] [phone] Diabetes mellitus type 2, uncontrolled (HCC) (Primary Dx); Dyslipidemia; Essential hypertension; Bronchitis Social History Tobacco Use Types Packs/Day Years [...] Sign Reading Time Taken Comments Blood Pressure 128/82 08/13/2014 3:41 PM EDT Pulse 78 08/13/2014 3:41 PM EDT Temperature - - Respiratory Rate 16 08/13/2014 3:41 PM EDT Oxygen Saturation - - Inhaled Oxygen Concentration - - Weight 108 kg (238 lb 1.6 oz) 08/13/2014 3:41 PM EDT Height 186.1 cm (6' 1.25 ) 08/13/2014 3:41 PM ED T Body Mass Index 31.2 08/13/2014 3:41 PM EDT documented in this encounter Ordered Prescriptions Prescription Sig Dispense Quantity Refills Last Filled Start Date End Date azithromycin (ZITHROMAX) 500 mg Oral TabletIndications: Bronchitis Take 1 Tab by mouth daily for 10 days. 10 Tab 0 08/13/2014 08/23/2014 losartan (COZAAR) 25 mg Oral TabletIndications: Essential hypertension Take 1 Tab by mouth daily. 90 Tab 3 08/13/2014 09/01/2015 simvastatin (ZOCOR) 40 mg Oral TabletIndications: Diabetes mellitus type 2, uncontrolled Take 1 Tab by mouth nightly. 90 Tab 3 08/13/2014 07/29/2015 sitaGLIPtin (JANUVIA) 50 mg Oral TabletIndications: Diabetes mellitus type 2, uncontrolled Take 1 Tab by mouth daily. Take one 50 mg tablet daily with breakfast. 90 Tab 3 08/13/2014 07/29/2015 glipiZIDE (GLUCOTROL) 5 mg Oral TabletIndications: Diabetes mellitus type 2, uncontrolled Take 1 Tab by mouth 2 times daily (before meals). Takes one tab daily 180 Tab 2 08/13/2014 08/13/2014 metFORMIN (GLUCOPHAGE) 1,000 mg Oral TabletIndications: Diabetes mellitus type 2, uncontrolled Take by mouth 2 times daily 180 Tab 3 08/13/2014 07/29/2015 documented in this encounter Progress Notes * Fili Sanchez MD - 08/13/2014 3:46 PM EDT Chief Complaint Patient presents with ??? Diabetes Diabetes Associated symptoms include coughing. Dane Ray is a 63 y.o. male who presents today for follow up Diabetes Mellitus. He moved from [place] to [place] last year. He has Type 2 Diabetes since 2003.He was diagnosed with regular blood test. Current diabetes regimen includes Metformin 1000 mg twice a day. Glipizide 5 mg twice a day. Januvia 50 mg once a day. Checks BS infrequently and they usually run in 100 to above 200's at times. Reports he has been tries to loss weight. Admits to polyuria though no polydipsia. Denies numbness and tingling in the feet. Last eye exam was . Complains of productive cough with greenish sputum production. 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 He is smoker too. Review of Systems HENT: Negative. Eyes: Negative. Respiratory: Positive for cough and shortness of breath. Genitourinary: Erectile disorder. Past Medical History Diagnosis Date ??? Diabetes mellitus ??? High blood pressure ??? Hyperlipidemia No past surgical history on file. Current Outpatient Prescriptions Medication ??? metFORMIN (GLUCOPHAGE) 500 mg Oral Tablet ??? glipiZIDE (GLUCOTROL) 5 mg Oral Tablet ??? sitaGLIPtin (JANUVIA) 50 mg Oral Tablet ??? simvastatin (ZOCOR) 40 mg Oral Tablet ??? pravastatin (PRAVACHOL) 20 mg Oral Tablet ??? losartan (COZAAR) 25 mg Oral Tablet ??? aspirin (ASPIRIN) 81 mg Oral Tablet, Chewable ??? varenicline (CHANTIX) 0.5 mg Oral Tablet ??? vardenafil (LEVITRA) 20 mg Oral Tablet No current facility-administered medications for this visit. No Known Allergies Objective Objective: Filed Vitals: 08/13/14 1541 BP: 128/82 Pulse: 78 Resp: 16 Height: 6' 1.25 (1.861 m) Weight: 238 lb 1.6 oz (108.001 kg) Physical Exam Constitutional: He is oriented to person, place, and time. He appears well- developed and well-nourished. HENT: Head: Normocephalic and atraumatic. Neck: No JVD present. No tracheal deviation present. No thyromegaly present. Cardiovascular: Normal rate, regular rhythm, normal heart sounds and intact distal pulses. Pulmonary/Chest: Effort normal and breath sounds normal. No respiratory distress. He has no wheezes. Musculoskeletal: He exhibits no edema. Neurological: He is alert and oriented to person, place, and time. Skin: Skin is warm and dry. Psychiatric: He has a normal mood and affect. His behavior is normal. Judgment and thought content normal. Laboratory: Lab Results Component Value Date HGBA1C 6.7 08/07/2014 Lab Results Component Value Date CREATININE 0.89 08/07/2014 No results found for: TSHREFLEX Lab Results Component Value Date ALT 26 08/07/2014 AST 28 08/07/2014 ALKPHOS 66 08/07/2014 Lab Results Component Value Date URINEMICROAL <12.0 08/07/2014 Lab Results Component Value Date CHOLESTEROL 139 08/07/2014 Lab Results Component Value Date HDL 60 08/07/2014 Lab Results Component Value Date LDLCALC 60 08/07/2014 Lab Results Component Value Date TRIG 95 08/07/2014 No results found for: CHOLHDL Assessment and Plan: 1. Diabetes Mellitus Type 2 Controlled Plan Continue metformin and Glipizide Januvia 50 mg once a day. -check fingerstick 1-2 times a day -met with the intermodal dispatcher. Diabetes Health Maintance: Eye exam: Advised yearly eye exam. Foot exam: 03/2014 Micro-albumin: ordered MATT/ARB:Losartan ASA: 81 mg once a day. Smoking: Advised to quit. 2. HTN: Losartan 3. Dyslipidemia Was taking two statins. Advised to take simvastatin 40 mg once a day.Lipids at goal. 4. Erectile disorder. Has tried Cialis and viagara in the past. Was not helpful. Normal 8 Am testosterone levels. 5. Bronchitis with productive cough Zithromycin 500 mg once a day for 10 days. The risks, benefits, and FDA indications of this treatment were discussed. No hx of allergies to medications. Advise to set up petar with PCP> He does not have PCP so information about SEP physician in [place] is given. Return in about 4 months (around 12/13/2014). * Neftali Saucedo RMA - 08/13/2014 3:45 PM EDT Pharm verified Patient checks BS 1x weekly. ckd BS @ 4 pm non fasting (153) Refill pending No meter or logs documented in this encounter Miscellaneous Notes * Addendum Note - Neftali Saucedo RMA - 08/15/2014 1:28 PM EDTAddended by: NEFTALI SAUCEDO on: 08/15/2014 01:28 PM Modules accepted: Orders documented in this encounter Plan of Treatment Upcoming Encounters Date Type Department Care Team (Late st Contact Info) Description 04/26/2024 9:00 AM EDT Office Visit [facility] Nephrology [place] [address] [place] [address] Julio Silva MD [address] [place] [address] documented as of this encounter Procedures Procedure Name Priority Date/Time Associated Diagnosis Comments POCT GLUCOSE Routine 08/13/2014 1:00 PM EDT Diabetes mellitus type 2, uncontrolled (HCC) documented in this encounter Results * POCT GLUCOSE (08/13/2014 1:00 PM EDT) Glucose 153 60 - 200 mg/dL SEP OFFICE Lot Number SEP OFFICE Expiration Date SEP OFFICE SeriAl # SEP OFFICE Meter SEP OFFICE 08/13/2014 1:00 PM EDT Fili Nevaeh Sanchez MD POINT OF CARE TEST ORDER AURELIO Final Result SEP OFFICE documented in this encounter Visit Diagnoses Diagnosis Diabetes mellitus type 2, uncontrolled- Primary Type II or unspecified type diabetes mellitus without mention of complication, uncontrolled Dyslipidemia Other and unspecified hyperlipidemia Essential hypertension Unspecified essential hypertension Bronchitis Bronchitis, not specified as acute or chronic documented in this encounter Discontinued Medications Medication Sig Discontinue Reason Start Date End Da te sitaGLIPtin (JANUVIA) 100 mg Oral Tablet Take 1 Tab by mouth daily (with breakfast). Take 1/2 tab daily with meals to equal 50 mg. DELETE-Duplicate 04/11/2014 08/13/2014 pravastatin (PRAVACHOL) 20 mg Oral Tablet Take 20 mg by mouth daily. WAS TAKING ONE DAILY Alternate therapy 08/13/2014 varenicline (CHANTIX) 0.5 mg Oral Tablet Take 0.5 mg Day 1-3 then take 0.5 mg BID Day 4-7 Patient refused 05/27/2014 08/13/2014 metFORMIN (GLUCOPHAGE) 500 mg Oral Tablet Take by mouth 2 times daily Reorder 07/12/2014 08/13/2014 glipiZIDE (GLUCOTROL) 5 mg Oral Tablet Take 1 Tab by mouth 2 times daily (before meals). Takes one tab daily Reorder 06/04/2014 08/13/2014 sitaGLIPtin (JANUVIA) 50 mg Oral Tablet Take 1 Tab by mouth daily. Take one 50 mg tablet daily with breakfast. Reorder 06/03/2014 08/13/2014 simvastatin (ZOCOR) 40 mg Oral Tablet Take 40 mg by mouth nightly. Reorder 08/13/2014 losartan (COZAAR) 25 mg Oral Tablet Take 1 Tab by mouth daily. Reorder 04/11/2014 08/13/2014 documented as of this encounter Care Teams Poultry Service Technician Relationship Specialty Start Date End Date Fili Sanchez MD [address] [place] [phone] Internal Medicine-Endocrinology, Diabetes & Metabolism 04/11/14 documented as of this encounter
--- OUTSIDE RECORDS SUMMARY | 2024-01-18 15:00 | XMS_ITS | Encounter Summary ---
Author Organization [place] [address] Care Team Providers Care Workers Compensation Manager Name Role Phone Fili Sanchez MD Unavailable [phone] Reason for Visit * Reason Onset Date Comments Medication Management 10/16/2014 viagra p/a Encounter Details Date Type Department Care Team (Late st Contact Info) Description 10/16/2014 Telephone [facility] [address] [address] Tariq Elizondo MD [address] [facility] [place], [place] [id number] Medication Management (viagra p/a) Social History Tobacco Use Types Packs/Day Years [...] encounter Miscellaneous Notes * Telephone Encounter - Amanda Weber RMA - 10/24/2014 2:53 PM EDT Still awaiting response from [employer]. * Telephone Encounter - Amanda Weber RMA - 10/17/2014 10:32 AM EDT PA Request sent through [employer]. Awaiting response. * Telephone Encounter - Sabine Schwab - 10/16/2014 2:11 PM EDT Pt just called stating his viagra was denied, called jonathan and they arent able to check the electronic history of message so they are faxing the form as viagra requires a p/a with his insurance. Amanda would you be able to work with Abril and show her how to do a p/a for this? Thank you. documented in this encounter Plan of Treatment Upcoming Encounters Date Type Department Care Team (Late st Contact Info) Description 04/26/2024 9:00 AM EDT Office Visit [facility] Nephrology [place] [address] [facility] [address] [place] [address] Julio Silva MD [address] [facility] [address] [place] [address] documented as of this encounter Visit Diagnoses Not on filedocumented in this encounter Care Teams Workers Compensation Manager Relationship Specialty Start Date End Date Fili Sanchez MD [address] [facility] [address] [place] [address] Internal Medicine-Endocrinology, Diabetes & Metabolism 04/11/14 documented as of this encounter
--- OUTSIDE RECORDS SUMMARY | 2024-01-18 15:00 | XMS_ITS | Encounter Summary ---
Author Organization [place] [address] Care Team Providers Care Handle Machine Operator Name Role Phone Fili Sanchez MD Unavailable [phone] Reason for Visit * Reason Onset Date Comments Medication Refill 07/05/2014 Encounter Details Date Type Department Care Team (Late st Contact Info) Description 07/05/2014 [facility] [place] 1500 [facility] [address] [place] [phone] Fili Sanchez MD [address] [phone] Medication Refill Social History Tobacco [...] Filled Start Date End Date metFORMIN (GLUCOPHAGE) 500 mg Oral Tablet Take by mouth 2 times daily 60 Tab 3 07/05/2014 07/12/2014 documented in this encounter Miscellaneous Notes * Telephone Encounter - Maribell Molina - 07/05/2014 11:10 AM EDT Patient needs a refill on Glucophage 500 mg (was under a different provider). Please send to [facility] [address] [place] [phone] - [phone]. Patient stated he is out of the Glucophage and if that script could be sent today. documented in this encounter Plan of Treatment Upcoming Encounters Date Type Department Care Team (Late st Contact Info) Description 04/26/2024 9:00 AM EDT Office Visit [facility] Nephrology [place] [address] [facility] [address] [place] [address] Julio Silva MD [address] [facility] [address] [facility] [address] [place] [address] documented as of this encounter Visit Diagnoses Not on filedocumented in this encounter Discontinued Medications Medication Sig Discontinue Reason Start Date End Da te metFORMIN (GLUCOPHAGE) 500 mg Oral Tablet Take by mouth 2 times daily. Reorder 07/05/2014 documented as of this encounter Care Teams Handle Machine Operator Relationship Specialty Start Date End Date Fili Sanchez MD [address] [facility] [address] [place] [address] Internal Medicine-Endocrinology, Diabetes & Metabolism 04/11/14 documented as of this encounter
--- OUTSIDE RECORDS SUMMARY | 2024-01-18 15:00 | XMS_ITS | Encounter Summary ---
Author Organization [place] [address] Care Team Providers Care Production Control Technologist Name Role Phone Fili Sanchez MD Unavailable [phone] Reason for Visit * Reason Onset Date Comments Other 05/27/2014 Encounter Details Date Type Department Care Team (Late st Contact Info) Description 05/27/2014 [facility] [place] [address] [facility] [address] [place] [phone] Fili Sanchez MD [address] [facility] [address] [place] [phone] Other Social History Tobacco Use Types Packs/Day Years [...] Refills Last Filled Start Date End Date varenicline (CHANTIX) 1 mg Oral Tablet Take 1 Tab by mouth 2 times daily for 77 days. 60 Tab 2 05/27/2014 08/12/2014 varenicline (CHANTIX) 0.5 mg Oral Tablet Take 0.5 mg Day 1-3 then take 0.5 mg BID Day 4-7 14 Tab 0 05/27/2014 08/13/2014 documented in this encounter Miscellaneous Notes * Telephone Encounter - Claudia Padgett LPN - 05/27/2014 8:07 AM EDT Called patient , has tried Chantix before without any side effects. He verbalized understanding to call with any side effects, will read the insert. He is aware will call in when [place] pharmacy opens. Called pharmacy spoke with Gil/pharmacist. Med list updated, * Telephone Encounter - Claudia Padgett LPN - 05/27/2014 8:01 AM EDT Fili bartholomew MD at 05/24/2014 8:03 AM Status: Signed Expand All Collapse All Please ask him - Has he tried Chantix before ? - If yes, any side effects. Ok to prescribe Chantix Days 1 to 3: 0.5 mg once daily Days 4 to 7: 0.5 mg twice daily Then 1 mg twice daily for 11 weeks Let him know the side effects includes depression getting worse or suicidal thoughts. Also it does decrease the metabolism of alcohol so avoid alcohol use while on Chantix. Encourage him to read the medication insert that will accompany their prescription and encourage him to discuss any questions about the insert. Call him if any side effects. Fili Sanchez MD at 05/24/2014 7:57 AM Status: Signed Expand All Collapse All From: Dane Ray To: Fili Sanchez MD Sent: 05/23/2014 7:47 AM EDT Subject: Medication Question Could you prescribed chanted for my smoking if so send to [facility] pharmacy in [place] . Thank you!!!! documented in this encounter Plan of Treatment Upcoming Encounters Date Type Department Care Team (Late st Contact Info) Description 04/26/2024 9:00 AM EDT Office Visit [facility] Nephrology [place] [address] [place] [address] Julio Silva MD [address] [place] [address] documented as of this encounter Visit Diagnoses Not on filedocumented in this encounter Care Teams Production Control Technologist Relationship Specialty Start Date End Date Fili Sanchez MD 1500 [facility] [address] [place] [address] Internal Medicine-Endocrinology, Diabetes & Metabolism 04/11/14 documented as of this encounter
--- OUTSIDE RECORDS SUMMARY | 2024-01-18 15:00 | XMS_ITS | Encounter Summary ---
Author Organization [place] [address] Care Team Providers Care Telecommunications Analyst Name Role Phone Fili Sanchez MD Unavailable Reason for Visit * Reason Onset Date Comments Lab Orders 02/03/2015 Encounter Details Date Type Department Care Team (Late st Contact Info) Description 02/03/2015 Telephone [facility] Diabetes [place] 1500 [facility] [address] [place] [phone] Lakisha Gupta APRN [address] [facility] [address] [place] [phone] Lab Orders Social History Tobacco Use Types [...] encounter Miscellaneous Notes * Telephone Encounter - Sophia Carlos RN - 02/03/2015 2:26 PM EST Labs ordered. Pt advised he needs to fast. * Telephone Encounter - Maribell Molina - 02/03/2015 1:16 PM EST Please update lab order in computer for patient. Patient has an appointment on 02/04/15. documented in this encounter Plan of Treatment Upcoming Encounters Date Type Department Care Team (Late st Contact Info) Description 04/26/2024 9:00 AM EDT Office Visit [facility] Nephrology [place] [address] [place] [address] Julio Silva MD [address] [place] [address] documented as of this encounter Results * LIPID PANEL REFLEX (02/04/2015 8:20 AM EST) Cholesterol 156 <=200 mg/dL [facility] Comment: < 200 ?Desirable 200 - 239 ? Borderline High >= 240 ?High Triglyceride 80 <=150 mg/dL [facility] Comment: < 150 ? Normal 150 - 199 ?Borderline High 200 - 499 ?High ??>= 500 ? Very High HDL 48 >=40 mg/dL [facility] Comment: ?? > 60 ?Optimal 40 - 60 ?Acceptable ?? < 40 ?Low Blood specimen (specimen) UPPER LIMB STRUCTURE / Unknown 02/04/2015 8:20 AM EST 02/04/2015 10:42 AM EST us Lakisha Gupta APRN CHEMISTRY ORDERABLES Final R esult [facility] [address] [place] [address] * HEMOGLOBIN A1C (02/04/2015 8:20 AM EST) Pathologist [facility] Hgb A1c 6.9 <=7.0 % [facility] Comment: Reference Interval for Hgb A1c Hgb A1c ?Interpretation ? < 6.0 ?Non-Diabetic Range 6.0 - 7.0 ? ADA Therapeutic Target ??> 7.0 ? Action suggested Blood specimen (specimen) UPPER LIMB STRUCTURE / Unknown 02/04/2015 8:20 AM EST 02/04/2015 10:42 AM EST Lakisha Gupta APRN CHEMISTRY ORDERABLES Final R esult [facility] 1 [place] [address] * (ABNORMAL) COMPREHENSIVE METABOLIC PANEL (02/04/2015 8:20 AM EST) [facility] Sodium 140 136 - 145 mmol/L [facility] Potassium 4.2 3.5 - 5.0 mmol/L [facility] Chloride 100 98 - 107 mmol/L [facility] Total CO2 26 22 - 29 mmol/L [facility] Anion Gap 14 7 - 16 mmol/L [facility] Calcium 9.7 8.8 - 10.2 mg/dL [facility] Glucose Lvl 160(H) 82 - 100 mg/dL [facility] BUN 10 8 - 23 mg/dL [facility] Creatinine 0.86 0.67 - 1.30 mg/dL [facility] Albumin 4.0 3.2 - 4.6 gm/dL [facility] Total Protein 7.4 6.4 - 8.3 gm/dL [facility] Bili Total 0.4 0.1 - 1.4 mg/dL [facility] AST 23 <=40 IU/L [facility] ALT 24 <=41 IU/L [facility] Alk Phos 73 40 - 129 IU/L [facility] GFR Afr Am >60 [facility] GFR Non Afr Am >60 [facility] Blood specimen (specimen) UPPER LIMB STRUCTURE / Unknown 02/04/2015 8:20 AM EST 02/04/2015 10:42 AM EST Lakisha Gupta FLYING TEACHER CHEMISTRY ORDERABLES Edited Result - Final [facility] [address] [place] [address] documented in this encounter Visit Diagnoses Diagnosis Diabetes mellitus type 2, uncontrolled- Primary Type II or unspecified type diabetes mellitus without mention of complication, uncontrolled Dyslipidemia Other and unspecified hyperlipidemia Essential hypertension Unspecified essential hypertension documented in this encounter Care Teams Telecommunications Analyst Relationship Specialty Start Date End Date Fili Sanchez MD [address] [address] Internal Medicine-Endocrinology, Diabetes & Metabolism 04/11/14 documented as of this encounter
--- OUTSIDE RECORDS SUMMARY | 2024-01-18 15:00 | XMS_ITS | Encounter Summary ---
Author Organization [place] [address] Care Team Providers Care Sql Server Dba Name Role Phone Fili Sanchez MD Unavailable [phone] Reason for Visit * Reason Onset Date Comments Cancellation 01/07/2015 Reschedule 01/07/2015 Encounter Details Date Type Department Care Team (Late st Contact Info) Description 01/07/2015 Telephone [facility] 1500 [facility] [address] [place] [phone] Fili Sanchez MD [address] [facility] [address] [place] [phone] Cancellation; Reschedule Social History Tobacco Use Types Packs/Day Years [...] * Telephone Encounter - Maribell Molina - 01/07/2015 2:06 PM EST Patient is scheduled for 02/04/15 at 8:20a with Lakisha. * Telephone Encounter - Fili Sanchez MD - 01/07/2015 1:58 PM EST Ok to schedule with the COMMUNITY DEVELOPMENT WORKER. If no openings in COMMUNITY DEVELOPMENT WORKER schedule then ok to overbook at lunch time. * Telephone Encounter - Sola Acosta - 01/07/2015 8:12 AM EST Patient left message on voice mail, 01/07/15 @ 6:54 am. 1) Patient cancelled today's appointment with Dr. Sanchez, he is in [place]. 2) Patient would like to reschedule for the first or second Tuesday in January, in the morning. Currently there are no available appointments. Can we work this patient into the schedule? Please advise. documented in this encounter Plan of Treatment Upcoming Encounters Date Type Department Care Team (Late st Contact Info) Description 04/26/2024 9:00 AM EDT Office Visit [facility] Nephrology [place] [address] [place] [address] Julio Silva MD [address] [facility] [address] [place] [address] documented as of this encounter Visit Diagnoses Not on filedocumented in this encounter Care Teams Sql Server Dba Relationship Specialty Start Date End Date Fili Sanchez MD [address] [facility] [address] [place] [phone] Internal Medicine-Endocrinology, Diabetes & Metabolism 04/11/14 documented as of this encounter
--- OUTSIDE RECORDS SUMMARY | 2024-01-18 15:00 | XMS_ITS | Encounter Summary ---
Author Organization [place] [address] Care Team Providers Care Clinical Medical Assistant Name Role Phone Fili Sanchez MD Unavailable [phone] Reason for Visit * Reason Onset Date Comments Medication Refill 07/12/2014 Encounter Details Date Type Department Care Team (Late st Contact Info) Description 07/12/[facility] [address] [facility] [address] [place] [phone] Fili Sanchez MD [address] [phone] Medication Refill Social History [...] mouth 2 times daily 180 Tab 3 07/12/2014 08/13/2014 documented in this encounter Plan of Treatment Upcoming Encounters Date Type Department Care Team (Late st Contact Info) Description 04/26/2024 9:00 AM EDT Office Visit [facility] Nephrology [place] [address] [place] [address] Julio Silva MD [address] [place] [address] documented as of this encounter Visit Diagnoses Not on filedocumented in this encounter Discontinued Medications Medication Sig Discontinue Reason Start Date End Da te metFORMIN (GLUCOPHAGE) 500 mg Oral Tablet Take by mouth 2 times daily Reorder 07/05/2014 07/12/2014 documented as of this encounter Care Teams Clinical Medical Assistant Relationship Specialty Start Date End Date Fili Sanchez MD [address] [address] Internal Medicine-Endocrinology, Diabetes & Metabolism 04/11/14 documented as of this encounter
--- OUTSIDE RECORDS SUMMARY | 2024-01-18 15:00 | XMS_ITS | Encounter Summary ---
Author [place] [address] Care Team Providers Care [employer] Technology Teacher Name Role Phone Fili Sanchez MD Unavailable [phone] Reason for Visit * Reason Comments Diabetes type 2 Encounter Details Date Type Department Care Team (Late st Contact Info) Description 07/29/2015 12:40 PM EDT [facility] [place] [address] [facility] [address] [place] [phone] Fili Sanchez MD 1500 [facility] [address] [place] [phone] Diabetes mellitus type 2, uncontrolled (HCC) (Primary Dx); Dyslipidemia; Essential hypertension; Gastroesophageal reflux disease, esophagitis presence not specified Social History Tobacco Use Types Packs/Day Years [...] Sign Reading Time Taken Comments Blood Pressure 105/69 07/29/2015 12:52 PM EDT Pulse 87 07/29/2015 12:52 PM EDT Temperature - - Respiratory Rate 15 07/29/2015 12:5 2 PM EDT Oxygen Saturation - - Inhaled Oxygen Concentration - - Weight 109.7 kg (241 lb 14.4 oz) 2015 12:52 PM EDT Height 186.1 cm (6' 1.25 ) 07/29/2015 1 2:52 PM EDT Body Mass Index 31.7 07/29/2015 12:52 PM EDT documented in this encounter Ordered Prescriptions Prescription Sig Dispense Quantity Refills Last Filled Start Date End Date pantoprazole (PROTONIX) 40 mg Oral Tablet, Delayed Release (E.C.) Take 1 Tab by mouth daily. 30 Tab 0 07/29/2015 08/26/2015 sitaGLIPtin (JANUVIA) 50 mg Oral TabletIndications: Diabetes mellitus type 2, uncontrolled Take 1 Tab by mouth daily. Take one 50 mg tablet daily with breakfast. 90 Tab 3 07/29/2015 07/27/2016 simvastatin (ZOCOR) 40 mg Oral TabletIndications: Diabetes mellitus type 2, uncontrolled Take 1 Tab by mouth nightly. 90 Tab 3 07/29/2015 08/09/2016 metFORMIN (GLUCOPHAGE) 1,000 mg Oral TabletIndications: Diabetes mellitus type 2, uncontrolled Take by mouth 2 times daily 180 Tab 3 07/29/2015 07/27/2016 documented in this encounter Progress Notes * Fili Sanchez MD - 07/29/2015 1:19 PM EDT Pt ID: Dane Ray is a 64 y.o. male who presents today for follow up Diabetes Mellitus since 2003. Chief Complaint Patient presents with ??? Diabetes type 2 Diabetes He is here for follow up. He was last seen in the office 6 months ago. He states he has been feeling well. states few days ago he started having chest tightness. THinks its related to acid reflux and anxiety and got better on its own. Current diabetes regimen includes Metformin 1000 mg twice a day. Glipizide 5 mg twice a day. Januvia 50 mg once a day. Checks BS every few days at different times and sugars run between 90s and 130s. No low sugars lessthan 80. Follows with Dr. Elizondo for his erectile dysfunction. Review of Systems HENT: Negative. Eyes: Negative. Genitourinary: Erectile disorder. Objective Objective: Filed Vitals: 07/29/15 1252 BP: 105/69 Pulse: 87 Resp: 15 Height: 6' 1.25 (1.861 m) Weight: 241 lb 14.4 oz (109.725 kg) Physical Exam Constitutional: He is oriented [...] Lab Results Component Value Date HGBA1C 6.9 02/04/2015 Lab Results Component Value Date CREATININE 0.86 02/04/2015 No results found for: TSHREFLEX Lab Results Component Value Date ALT 24 02/04/2015 AST 23 02/04/2015 ALKPHOS 73 02/04/2015 Lab Results Component Value Date URINEMICROAL <12.0 08/07/2014 Lab Results Component Value Date CHOLESTEROL 156 02/04/2015 Lab Results Component Value Date HDL 48 02/04/2015 Lab Results Component Value Date LDLCALC 92 02/04/2015 Lab Results Component Value Date TRIG 80 02/04/2015 No results found for: CHOLHDL Assessment and Plan: 1. Diabetes Mellitus Type 2 Controlled Plan: await A1c results Continue metformin and Glipizide Januvia 50 mg once a day. -check fingerstick 1-2 times a day Diabetes Health Maintance: Eye exam: Advised yearly eye exam. Foot exam: 01/28, referred to podiatry for bilateral foot fungus. Micro-albumin: neg screen 07/29 MATT/ARB:Losartan ASA: 81 mg once a day. Smoking: Advised to quit. 2. HTN: Losartan 3. Dyslipidemia: currently taking simvastatin 40 mg daily. Await current lab results. 4. Erectile disorder. Good results with levitra per Dr. Elizondo. 5. Chest tightness few days ago. Discussed about getting EKG and stress test as he does not have a PCP. He wants to establish care with PCP at [facility] and get tests through them. If he changes his mind, he will give me a call. 6. GERD Trial of Protonix for 30 days. The risks, benefits, and FDA indications of this treatment were discussed. Return for 3-4 months. * Sonali Don RMA - 07/29/2015 12:59 PM EDT No fingerstick today - has not tested in a while Has not had any symptoms No meter today - typically would test 1x daily Pharm verified Fingerstick non fasting in office today was 92 documented in this encounter Plan of Treatment Upcoming Encounters Date Type Department Care Team (Late st Contact Info) Description 04/26/2024 9:00 AM EDT Office Visit [facility] Nephrology [place] [address] [place] [address] Julio Sivla MD [address] [place] [address] documented as of this encounter Procedures Procedure Name Priority Date/Time Associated Diagnosis Comments POCT GLUCOSE Routine 07/29/2015 1:08 PM EDT Diabetes mellitus type 2, uncontrolled (HCC) documented in this encounter Results * POCT GLUCOSE (07/29/2015 1:08 PM EDT) Glucose 92 60 - 200 mg/dL [facility] Lot Number SEP OFFICE Expiration Date SEP OFFICE SeriAl # SEP OFFICE Meter SEP OFFICE 07/29/2015 1:08 PM EDT Fili Sanchez MD POINT OF CARE TEST ORDER AURELIO Final Result [facility] documented in this encounter Visit Diagnoses Diagnosis Diabetes mellitus type 2, uncontrolled- Primary Type II or unspecified type diabetes mellitus without mention of complication, uncontrolled Dyslipidemia Other and unspecified hyperlipidemia Essential hypertension Unspecified essential hypertension Gastroesophageal reflux disease, esophagitis presence not specified documented in this encounter Discontinued Medications Medication Sig Discontinue Reason Start Date End Da te metFORMIN (GLUCOPHAGE) 1,000 mg Oral TabletIndications:Diabete s mellitus type 2, uncontrolled Take by mouth 2 times daily Reorder 08/13/2014 07/29/2015 simvastatin (ZOCOR) 40 mg Oral TabletIndications:Diabete s mellitus type 2, uncontrolled Take 1 Tab by mouth nightly. Reorder 08/13/2014 07/29/2015 sitaGLIPtin (JANUVIA) 50 mg Oral TabletIndications:Diabete s mellitus type 2, uncontrolled Take 1 Tab by mouth daily. Take one 50 mg tablet daily with breakfast. Reorder 08/13/2014 07/29/2015 documented as of this encounter Care Teams [employer] Technology Teacher Relationship Specialty Start Date End Date Fili Sanchez MD [address] [address] Internal Medicine-Endocrinology, Diabetes & Metabolism 04/11/14 documented as of this encounter
--- OUTSIDE RECORDS SUMMARY | 2024-01-18 15:00 | XMS_ITS | Encounter Summary ---
Author Organization [place] [address] Care Team Providers Care Radio Interference Investigator Name Role Phone Fili Sanchez MD Unavailable [phone] Reason for Visit * Reason Comments Erectile Dysfunction Encounter Details Date Type Department Care Team (Late st Contact Info) Description 10/08/2014 1:00 PM EDT Office Visit [facility] [address] [address] Tariq Elizondo MD [address] [facility] [place] [address] Male erectile disorder (Primary Dx); Diabetes mellitus type 2, uncontrolled (HCC) Social History Tobacco Use Types Packs/Day [...] Sign Reading Time Taken Comments Blood Pressure 130/84 10/08/2014 1:12 PM EDT Pulse 90 10/08/2014 1:12 PM EDT Temperature - - Respiratory Rate - - Oxygen Saturation - - Inhaled Oxygen Concentration - - Weight 104.9 kg (231 lb 3.2 oz) 10/08/2014 1:12 PM EDT Height 190.5 cm (6' 3 ) 10/08/2014 1:12 PM EDT Body Mass Index 28.9 10/08/2014 1:12 PM EDT documented in this encounter Ordered Prescriptions Prescription Sig Dispense Quantity Refills Last Filled Start Date End Date sildenafil (VIAGRA) 100 mg Oral Tablet Take 1 Tab by mouth as needed for Erectile Dysfunction. 10 Tab 11 10/08/2014 7 documented in this encounter Progress Notes * Tariq Elizondo MD - 10/08/2014 1:20 PM EDT Images from the original note were not included. [facility] Urology Established Patient E&M Dane Ray 1950 No Known Allergies Synopsis: Dane Ray: Diabetic with ED not responsive to Cialis or Viagra. Last T level normal 04-28. Last PSA 1.0 on 04-28. Last [facility] 04-29-14.. Chief Complaint(s): Chief Complaint Patient presents with ??? Erectile Dysfunction HPI: 63 y.o. male with Erectile Dysfunction/PE/Hypogonadism (F/U) Treatment effective? No, not happy with Levitra, wants to go back to Viagra Medication toxicity screen needed? No Date: Any side-effects? No Any new symptoms? None Correcting co-morbid factors (smoking, DM,etc)?: Yes Comments: None The last Comprehensive Medical Hx on 04-29-14 was reviewed and changes were noted as follows: Illnesses none, Medications none, Surgeries none, Family Hx none, Social Hx none, Urology Specific ROSS none Today???s Brief PE: Vital Signs: BP 130/84 mmHg Pulse 90 Ht 6' 3 (1.905 m) Wt 231 lb 3.2 oz (104.872 kg) BMI 28.90 kg/m2 No PE required Data: POCT Urinalysis: No results found for this visit on 10/08/14. Labs: Lab results were reviewed in [facility] and pertinent positives are: see synopsis Imaging: Imaging studies (both written report and images on file) were reviewed in [facility] and pertinent positives are: see synopsis Existing Medical Record: Progress Notes, Consults and miscellaneous records were reviewed in [facility] and pertinent positives are: see synopsis Outside paper records reviewed: none Diagnoses: 1. Male erectile disorder 2. Diabetes mellitus type 2, uncontrolled (HCC) Plan: No change in plan, continue current medications and instructions, refilled Viagra Return: Return in about 1 year (around 10/09/2015). Tariq Elizondo MD, FACS [facility] Urology [address] [facility], [address] [place] [address] 10/08/2014 1:22 PM documented in this encounter Miscellaneous Notes * Patient Instructions - Tariq Elizondo MD - 10/08/2014 1:22 PM EDT Hand Washing Staying healthy is important to you and your entire family. Follow these easy, low-cost steps to help stop many infectious diseases before they happen. HOW TO WASH ?? Wet your hands and apply liquid, bar, or powder soap. ?? Rub hands together vigorously to make a lather and scrub all surfaces. Be sure to clean between the fingers and around the nails. ?? Continue for 20 seconds! It takes that long for the soap and scrubbing action to dislodge and remove stubborn germs. ?? Rinse hands well under running water. ?? Dry your hands using a paper towel or air dryer. ?? If possible, use your paper towel or elbow to turn off the faucet. This will help avoid re-exposure to germs on the handle. WHEN TO WASH YOUR HANDS ?? Before and after eating. ?? Before, during, and after handling or preparing food. ?? After contact with blood or body fluids (like vomit, nasal secretions, or saliva). This means washing after you blow your nose! ?? Before and after changing a diaper. ?? After you use the bathroom. ?? After handling animals, their toys, leashes, or waste. ?? After touching something that could be contaminated (such as a trash can, cleaning cloth, drain,or soil). ?? Before and after taking care of (dressing) a wound, giving medicine, or inserting contact lenses. ?? More often when someone in your home is sick. ?? Whenever your hands become soiled. If soap and water are not available, use an alcohol-based wipe or hand gel. Keeping your hands clean is one of the best ways to keep from getting sick and spreading illnesses. Cleaning your hands gets rid of germs you garbage pick up worker: ?? From other people. ?? From the surfaces you touch. ?? From the animals you come in contact with. Document Released: 09/21/2005 Document Revised: 05/28/2013 Document Reviewed: 02/26/2009 ExitCare?? Patient Information ??2015 [employer]. This information is not intended to replace advice given to you by your health care provider. Make sure you discuss any questions you have with your health care provider. documented in this encounter Plan of Treatment Upcoming Encounters Date Type Department Care Team (Late st Contact Info) Description 04/26/2024 9:00 AM EDT Office Visit [facility] Nephrology [place] [address] [place] [address] Julio Silva MD [address] [facility] [address] [place] [address] documented as of this encounter Visit Diagnoses Diagnosis Male erectile disorder- Primary Impotence of organic origin Diabetes mellitus type 2, uncontrolled Type II or unspecified type diabetes mellitus without mention of complication, uncontrolled documented in this encounter Care Teams Radio Interference Investigator Relationship Specialty Start Date End Date Fili Sanchez MD [address] [facility] [address] [place] [address] Internal Medicine-Endocrinology, Diabetes & Metabolism 04/11/14 documented as of this encounter
--- OUTSIDE RECORDS SUMMARY | 2024-01-18 15:00 | XMS_ITS | Encounter Summary ---
Author Organization [place] [address] Care Team Providers Care Assistant Corporate Controller Name Role Phone Fili Sanchez MD Unavailable [phone] Raphael Lopez PA-C Primary Care Provider Humberto summers Encounter Details Date Type Department Care Team (Latest Contact Info) Description 08/07/2014 7:40 AM EDT - 08/07/2014 11:59 PM EDT Hospital Encounter [facility] [address] [place] [address] Diabetes mellitus type 2, uncontrolled (HCC); Dyslipidemia Discharge Disposition: Home or Self [...] by mouth daily. 30 Tab 0 04/11/2014 varenicline (CHANTIX) 1 mg Oral Tablet Take 1 Tab by mouth 2 times daily for 77 days. 60 Tab 2 05/27/2014 08/12/2014 documented as of this encounter Discharge Disposition Disposition Code Departure Means Destination Home or Self Care documented in this encounter Plan of Treatment Upcoming Encounters Date Type Department Care Team (Late st Contact Info) Description 04/26/2024 9:00 AM EDT Office Visit [facility] Nephrology [place] [address] [place], [place] [phone] Julio Silva MD [address] [place], [place] [phone] Scheduled Orders Name Type Priority Associated Diagnoses Orde r Schedule OP VENIPUNCTURE CHARGE Lab Timed Diabetes mellitus type 2, uncontrolled (HCC) Dyslipidemia One Time for 1 Occurrences starting 08/07/2014 until 08/07/2014 documented as of this encounter Procedures Procedure Name Priority Date/Time Associated Diagnosis Comments MICROALBUMIN/CREATINI NE RATIO URINE Routine 08/07/2014 8:01 AM EDT Diabetes mellitus type 2, uncontrolled (HCC) Dyslipidemia LDL, CALCULATED Routine 08/07/2014 7:49 AM EDT LIPID PANEL REFLEX Routine 08/07/2014 7: 49 AM EDT Diabetes mellitus type 2, uncontrolled (HCC) Dyslipidemia HEMOGLOBIN A1C Routine 08/07/2014 7:49 AM EDT Diabetes mellitus type 2, uncontrolled (HCC) Dyslipidemia COMPREHENSIVE METABOLIC PANEL Routine 08/07/2014 7:49 AM EDT Diabetes mellitus type 2, uncontrolled (HCC) Dyslipidemia documented in this encounter Results * MICROALBUMIN/CREATININE RATIO URINE (08/07/2014 8:01 AM EDT) Urine Microalb <12.0 mg/L [facility] Urine Creatinine 65.4 mg/dL [facility] Ur Microalb/Creat See Footnote 0 - 20 [facility] Comment:Unable to calculate due to value outside linearity. Urine specimen (specimen) 08/07/2014 8:01 AM EDT 08/07/2014 10:36 AM EDT Fili Sanchez MD URINE ORDERABLES Final R esult Performing Organization Address [facility] de Phone Number [facility] [address] [place] [address] * LDL, CALCULATED (08/07/2014 7:49 AM EDT) LDL Calculated 60 <=100 mg/dL [facility] Comment: ??< 100 ?Optimal 100 - 129 ? Near or above optimal 130 - 159 ? Borderline High 160 - 189 ? High >= 190 ?Very High Blood specimen (specimen) 08/07/2014 7:49 AM EDT 08/07/2014 10:48 AM EDT Fili Sanchez MD CHEMISTRY ORDERABLES Fin al Result Performing Organization Address [facility] de Phone Number [facility] [address] [place] [address] * LIPID PANEL REFLEX (08/07/2014 7:49 AM EDT) Cholesterol 139 <=200 mg/dL [facility] Comment: < 200 ?Desirable 200 - 239 ? Borderline High >= 240 ?High Triglyceride 95 <=150 mg/dL [facility] Comment: < 150 ? Normal 150 - 199 ?Borderline High 200 - 499 ?High ??>= 500 ? Very High HDL 60 >=40 mg/dL [facility] Comment: ?? > 60 ?Optimal 40 - 60 ?Acceptable ?? < 40 ?Low Blood specimen (specimen) UPPER LIMB STRUCTURE / Unknown 08/07/2014 7:49 AM EDT 08/07/2014 10:48 AM EDT Fili Sanchez MD CHEMISTRY ORDERABLES Fred duglas Result - Final Performing Organization Address [facility] de Phone Number [facility] [address] [place] [address] * HEMOGLOBIN A1C (08/07/2014 7:49 AM EDT) Pathologist [facility] Hgb A1c 6.7 <=7.0 % [facility] Comment: Initial Diagnostic Criteria < 5.7 % ?Normal 5.7 - 6.4 % ? At risk for diabetes mellitus >= 6.5 % ?Consistent with diabetes mellitus Diabetes monitoring Target Value (ADA recommended): ?< 7 % Blood specimen (specimen) UPPER LIMB STRUCTURE / Unknown 08/07/2014 7:49 AM EDT 08/07/2014 10:49 AM EDT Fili Sanchez MD CHEMISTRY ORDERABLES Fin al Result [facility] [address] [place] [address] * (ABNORMAL) COMPREHENSIVE METABOLIC PANEL (08/07/2014 7:49 AM EDT) [facility] Sodium 138 136 - 145 mmol/L [facility] Potassium 4.2 3.5 - 5.0 mmol/L [facility] Chloride 97(L) 98 - 107 mmol/L [facility] Total CO2 27 22 - 29 mmol/L [facility] Anion Gap 14 7 - 16 mmol/L [facility] Calcium 9.9 8.8 - 10.2 mg/dL [facility] Glucose Lvl 99 82 - 100 mg/dL [facility] BUN 14 8 - 23 mg/dL [facility] Creatinine 0.89 0.67 - 1.30 mg/dL [facility] Albumin 4.2 3.2 - 4.6 gm/dL [facility] Total Protein 7.2 6.4 - 8.3 gm/dL [facility] Bili Total 0.3 0.1 - 1.4 mg/dL [facility] AST 28 <=40 IU/L [facility] ALT 26 <=41 IU/L [facility] Alk Phos 66 40 - 129 IU/L [facility] GFR Afr Am >60 [facility] GFR Non Afr Am >60 [facility] Blood specimen (specimen) UPPER LIMB STRUCTURE / Unknown 08/07/2014 7:49 AM EDT 08/07/2014 10:48 AM EDT Fili Sanchez MD CHEMISTRY ORDERABLES Fred duglas Result - Final [facility] [address] [place] [address] documented in this encounter Visit Diagnoses Diagnosis Diabetes mellitus type 2, uncontrolled Type II or unspecified type diabetes mellitus without mention of complication, uncontrolled Dyslipidemia Other and unspecified hyperlipidemia documented in this encounter Care Teams Assistant Corporate Controller Relationship Specialty Start Date End Date Raphael Lopez PA-C [address] [address] PCP - General Physician College Associate 08/07/1407/16 Fili Sanchez MD [address] [address] Internal Medicine-Endocrinology, Diabetes & Metabolism 04/11/14 documented as of this encounter
--- OUTSIDE RECORDS SUMMARY | 2024-01-18 15:00 | XMS_ITS | Encounter Summary ---
Author Organization [place] [address] Care Team Providers Care Gum Cook Name Role Phone Fili Sanchez MD Unavailable Reason for Visit * Reason Comments Diabetes Encounter Details Date Type Department Care Team (Late st Contact Info) Description 02/04/2015 1:20 PM EST [facility] [place] [address] [facility] [address] [place] [phone] Lakisha Gupta APRN [address] [facility] [address] [place] [phone] Diabetes mellitus type 2, uncontrolled (HCC) (Primary Dx); Dyslipidemia; Essential hypertension; Male erectile disorder Social History Tobacco Use Types Packs/Day Years [...] Sign Reading Time Taken Comments Blood Pressure 118/82 02/04/2015 8:46 AM EST Pulse 86 02/04/2015 8:46 AM EST Temperature - - Respiratory Rate 16 02/04/2015 8:46 AM EST Oxygen Saturation - - Inhaled Oxygen Concentration - - Weight 106.1 kg (233 lb 12.8 oz) 02/04/2015 8:46 AM EST Height 186.1 cm (6' 1.25 ) 02/04/2015 8:46 AM ES T Body Mass Index 30.64 02/04/2015 8:46 AM EST documented in this encounter Progress Notes * Lakisha Gupta, JAY - 02/04/2015 9:04 AM EST Pt ID: Dane Ray is a 64 y.o. male who presents today for follow up Diabetes Mellitus since 2003. Chief Complaint Patient presents with ??? Diabetes HPI He is here for follow up. He was last seen in the office 6 months ago. He states he has been feeling well and has not had any changes to his health. He just had his labs done this morning for his visit. Not yet resulted. Current diabetes regimen includes Metformin 1000 mg [...] Genitourinary: Erectile disorder. Objective Objective: Filed Vitals: 02/04/15 0846 BP: 118/82 Pulse: 86 Resp: 16 Height: 6' 1.25 (1.861 m) Weight: 233 lb 12.8 oz (106.051 kg) Physical Exam Constitutional: He is oriented [...] Good results with levitra per Dr. Elizondo. Advise to set up petar with PCP at last visit and he has not yet done this, reminded again to do this. He does have PCP so information for contact. Return in about 6 months (around 08/06/2015). Encounter Diagnoses Name Primary? Diabetes mellitus type 2, uncontrolled (HCC) Yes ??? Dyslipidemia ??? Essential hypertension ??? Male erectile disorder * Susanna Saucedo RMA - 02/04/2015 8:50 AM EST Pharm verified Patient checks BS 1x daily No meter today. Checked patient's BS 128 No refills needed documented in this encounter Miscellaneous Notes * Patient Instructions - Lakisha Gupta APRN - 02/04/2015 9:16 AM EST Check sugars at least once or twice a day at different times Call office if having low sugars or other issues. documented in this encounter Plan of Treatment Upcoming Encounters Date Type Department Care Team (Late st Contact Info) Description 04/26/2024 9:00 AM EDT Office Visit [facility] Nephrology [place] [address] [place] [address] Julio Silva MD [address] [place] [phone] documented as of this encounter Procedures Procedure Name Priority Date/Time Associated Diagnosis Comments POCT GLUCOSE Routine 02/04/2015 8:52 AM EST Diabetes mellitus type 2, uncontrolled (HCC) documented in this encounter Results * MICROALBUMIN/CREATININE RATIO URINE (07/31/2015 1:24 PM EDT) Urine Microalb <12.0 mg/L [facility] Urine Creatinine 27.1 mg/dL [facility] Ur Microalb/Creat See Footnote 0 - 30 [facility] Comment:Unable to calculate due to value outside linearity. Urine specimen (specimen) 07/31/2015 1:24 PM EDT 07/31/2015 7:29 PM EDT us Lakisha Gupta APRN URINE ORDERABLES Final Resul t [facility] [address] [place] [address] * LIPID PANEL REFLEX (07/31/2015 1:04 PM EDT) Cholesterol 145 <=200 mg/dL [facility] Comment: < 200 ?Desirable 200 - 239 ? Borderline High >= 240 ?High Triglyceride 77 <=150 mg/dL [facility] Comment: < 150 ? Normal 150 - 199 ?Borderline High 200 - 499 ?High ??>= 500 ? Very High HDL 56 >=40 mg/dL [facility] Comment: ?? > 60 ?Optimal 40 - 60 ?Acceptable ?? < 40 ?Low Blood specimen (specimen) 07/31/2015 1:04 PM EDT 07/31/2015 6:22 PM EDT Lakisha Gupta SWITCHBOARD MECHANIC CHEMISTRY ORDERABLES Final R esult Performing Organization Address City/State/[facility] Co de Phone Number [facility] [address] [place] [address] * (ABNORMAL) COMPREHENSIVE METABOLIC PANEL (07/31/2015 1:04 PM EDT) [facility] Sodium 142 136 - 145 mmol/L [facility] Potassium 4.5 3.5 - 5.0 mmol/L [facility] Chloride 102 98 - 107 mmol/L [facility] Total CO2 27 22 - 29 mmol/L [facility] Anion Gap 13 7 - 16 mmol/L [facility] Calcium 10.1 8.8 - 10.2 mg/dL [facility] Glucose Lvl 70(L) 82 - 100 mg/dL [facility] BUN 15 8 - 23 mg/dL [facility] Creatinine 0.90 0.67 - 1.30 mg/dL [facility] Albumin 4.2 3.2 - 4.6 gm/dL [facility] Total Protein 7.2 6.4 - 8.3 gm/dL [facility] Bili Total 0.3 0.1 - 1.4 mg/dL [facility] AST 25 <=40 IU/L [facility] ALT 23 <=41 IU/L [facility] Alk Phos 52 40 - 129 IU/L [facility] GFR Afr Am >[address] [facility] GFR Non Afr Am >[address] [facility] Blood specimen (specimen) 07/31/2015 1:04 PM EDT 07/31/2015 6:22 PM EDT Lakisha Gupta APRN CHEMISTRY ORDERABLES Edited Result - Final Performing Organization Address [facility] de Phone Number [facility] [address] [place] [address] * HEMOGLOBIN A1C (07/31/2015 1:04 PM EDT) [facility] Hgb A1c 6.9 <=7.0 % [facility] Comment: Reference Interval for Hgb A1c Hgb A1c ?Interpretation ? < 6.0 ?Non-Diabetic Range 6.0 - 7.0 ? ADA Therapeutic Target ??> 7.0 ? Action suggested Blood specimen (specimen) 07/31/2015 1:04 PM EDT 07/31/2015 6:21 PM EDT Lakisha Gupta APRN CHEMISTRY ORDERABLES Final R esult Performing Organization Address [facility] de Phone Number [facility] [address] [place] [address] * THYROID STIMULATING HORMONE (07/31/2015 1:04 PM EDT) [facility] TSH 2.210 0.270 - 4.200 mcIU/mL [facility] Blood specimen (specimen) 07/31/2015 1:04 PM EDT 07/31/2015 6:22 PM EDT Lakisha Gupta APRN CHEMISTRY ORDERABLES Final R esult Performing Organization Address [facility] [place] [address] * VITAMIN D 25 HYDROXY (07/31/2015 1:04 PM EDT) [facility] VIT D 25 OH 31.4 30.0 - 120.0 ng/mL [facility] Comment: INTERPRETIVE INFORMATION: ??Vitamin D, 25-Hydroxy <20 ng/mL ? Deficiency 20 - 29 ng/mL ?Insufficiency 30 - 80 ng/mL ?Optimum Level >120 ng/mL ? Possible Toxicity NOTE: For infants and children up to 17 years of age, the optimum level is >=20 ng/mL. This assay accurately quantifies the sum of vitamin D3, 25-Hydroxy and vitamin D2, 25-Hydroxy. Blood specimen (specimen) 07/31/2015 1:04 PM EDT 07/31/2015 6:22 PM EDT Lakisha Gupta APRN CHEMISTRY ORDERABLES Final R esult Performing Organization Address [facility] [place] [address] * POCT GLUCOSE (02/04/2015 8:52 AM EST) [facility] Glucose 128 60 - 200 mg/dL SEP OFFICE Lot Number SEP OFFICE Expiration Date SEP OFFICE SeriAl # SEP OFFICE Meter SEP OFFICE 02/04/2015 8:52 AM EST Lakisha Gupta APRN POINT OF CARE TEST ORDERABLE S Final Result SEP OFFICE documented in this encounter Visit Diagnoses Diagnosis Diabetes mellitus type 2, uncontrolled- Primary Type II or unspecified type diabetes mellitus without mention of complication, uncontrolled Dyslipidemia Other and unspecified hyperlipidemia Essential hypertension Unspecified essential hypertension Male erectile disorder Impotence of organic origin documented in this encounter Care Teams Gum Cook Relationship Specialty Start Date End Date Fili Sanchez MD [address] [place] [phone] Internal Medicine-Endocrinology, Diabetes & Metabolism 04/11/14 documented as of this encounter
--- OUTSIDE RECORDS SUMMARY | 2024-01-18 15:00 | XMS_ITS | Encounter Summary ---
Author Organization [place] [address] Care Team Providers Care Fish Checker Name Role Phone Fili Sanchez MD Unavailable Reason for Visit * Reason Onset Date Comments Appointment Needed 12/26/2014 Encounter Details Date Type Department Care Team (Late st Contact Info) Description 12/26/2014 Telephone [facility] [place] [address] [facility] [address] [place] [phone] iFli Sanchez MD [address] [facility] [address] [place] [phone] Appointment Needed Social History Tobacco Use Types Packs/Day Years [...] encounter Miscellaneous Notes * Telephone Encounter - Colleen Alejandro - 12/30/2014 2:50 PM EST lmom * Telephone Encounter - Fili Sanchez MD - 12/30/2014 2:25 PM EST Ok to overbook at 10:45 AM * Telephone Encounter - Sonali Don RMA - 12/30/2014 2:24 PM EST Will forward to Dr. Sanchez. * Telephone Encounter - Colleen Alejandro - 12/26/2014 10:15 AM EST Patient is calling Because he had to cancel apt for today due To work. He is off all next week and wanted to know if you could work him in sometime Tuesday between ? documented in this encounter Plan of Treatment Upcoming Encounters Date Type Department Care Team (Late st Contact Info) Description 04/26/2024 9:00 AM EDT Office Visit [facility] Nephrology [place] [address] [place] [address] Julio Silva MD [address] [place] [address] documented as of this encounter Visit Diagnoses Not on filedocumented in this encounter Care Teams Fish Checker Relationship Specialty Start Date End Date Fili Sanchez MD [address] [facility] [address] [place] [address] Internal Medicine-Endocrinology, Diabetes & Metabolism 04/11/14 documented as of this encounter
--- OUTSIDE RECORDS SUMMARY | 2024-01-18 15:00 | XMS_ITS | Encounter Summary ---
Author Organization [place] [address] Care Team Providers Care Bar And Filler Assembler Name Role Phone Fili Sanchez MD Unavailable [phone] Encounter Details Date Type Department Care Team (Latest Contact Info) Description 02/04/2015 8:15 AM EST - 02/04/2015 11:59 PM [facility] Hospital Encounter [facility] [address] [place] [address] Diabetes mellitus type 2, uncontrolled (HCC); Dyslipidemia; Essential hypertension Discharge Disposition: Home or Self Care Social [...] by mouth daily. 30 Tab 0 04/11/2014 documented as of this encounter Discharge Disposition Disposition Code Departure Means Destination Home or Self Care documented in this encounter Plan of Treatment Upcoming Encounters Date Type Department Care Team (Late st Contact Info) Description 04/26/2024 9:00 AM EDT Office Visit [facility] Nephrology [place] [address] [place] [address] Julio Silva MD [address] [place] [address] Scheduled Orders Name Type Priority Associated Diagnoses Orde r Schedule OP VENIPUNCTURE CHARGE Lab Timed Diabetes mellitus type 2, uncontrolled (HCC) Dyslipidemia Essential hypertension One Time for 1 Occurrences starting 02/04/2015 until 02/04/2015 documented as of this encounter Procedures Procedure Name Priority Date/Time Associated Diagnosis Comments LDL, CALCULATED Routine 02/04/2015 8:20 AM EST LIPID PANEL REFLEX Routine 02/04/2015 8: 20 AM EST Diabetes mellitus type 2, uncontrolled (HCC) Dyslipidemia Essential hypertension HEMOGLOBIN A1C Routine 02/04/2015 8:20 AM EST Diabetes mellitus type 2, uncontrolled (HCC) Dyslipidemia Essential hypertension COMPREHENSIVE METABOLIC PANEL Routine 02/04/2015 8:20 AM EST Diabetes mellitus type 2, uncontrolled (HCC) Dyslipidemia Essential hypertension documented in this encounter Results * LDL, CALCULATED (02/04/2015 8:20 AM EST) LDL Calculated 92 <=100 mg/dL [facility] Comment: ??< 100 ?Optimal 100 - 129 ? Near or above optimal 130 - 159 ? Borderline High 160 - 189 ? High >= 190 ?Very High Blood specimen (specimen) 02/04/2015 8:20 AM EST 02/04/2015 10:42 AM EST us Lakisha Gupta APRN CHEMISTRY ORDERABLES Final R esult [facility] 1 [place] [address] * LIPID PANEL REFLEX (02/04/2015 8:20 AM EST) Cholesterol 156 <=200 mg/dL [facility] Comment: < 200 ?Desirable 200 - 239 ? Borderline High >= 240 ?High Triglyceride 80 <=150 mg/dL [facility] Comment: < 150 ? Normal 150 - 199 ?Borderline High 200 - 499 ?High ??>= 500 ? Very High HDL 48 >=40 mg/dL [facility] Comment: ?? > 60 ?Optimal 40 - 60 ?Acceptable ?? < 40 ?Low Blood specimen (specimen) UPPER LIMB STRUCTURE / Unknown 02/04/2015 8:20 AM EST 02/04/2015 10:42 AM EST Lakisha Gupta APRN CHEMISTRY ORDERABLES Final R esult Performing Organization Address [facility]/State/ZIP Co de Phone Number [facility] 1 [place] [address] * HEMOGLOBIN A1C (02/04/2015 8:20 AM EST) Hgb A1c 6.9 <=7.0 % [facility] Comment: Reference Interval for Hgb A1c Hgb A1c ?Interpretation ? < 6.0 ?Non-Diabetic Range 6.0 - 7.0 ? ADA Therapeutic Target ??> 7.0 ? Action suggested Blood specimen (specimen) UPPER LIMB STRUCTURE / Unknown 02/04/2015 8:20 AM EST 02/04/2015 10:42 AM EST Lakisha Gupta APRN CHEMISTRY ORDERABLES Final R esult [facility] 1 [place] [address] * (ABNORMAL) COMPREHENSIVE METABOLIC PANEL (02/04/2015 8:20 AM EST) Sodium 140 136 - 145 mmol/L [facility] Potassium 4.2 3.5 - 5.0 mmol/L [facility] Chloride 100 98 - 107 mmol/L [facility] Total CO2 26 22 - 29 mmol/L [facility] Anion Gap 14 7 - 16 mmol/L [facility] Calcium 9.7 8.8 - 10.2 mg/dL [facility] Glucose Lvl 160(H) 82 - 100 mg/dL [facility] BUN 10 8 - 23 mg/dL [facility] Creatinine 0.86 0.67 - 1.30 mg/dL [facility] Albumin 4.0 3.2 - 4.6 gm/dL [facility] Total Protein 7.4 6.4 - 8.3 gm/dL [facility] Bili Total 0.4 0.1 - 1.4 mg/dL [facility] AST 23 <=40 IU/L [facility] ALT 24 <=41 IU/L [facility] Alk Phos 73 40 - 129 IU/L [facility] GFR Afr Am >60 [facility] GFR Non Afr Am >[address] [facility] Blood specimen (specimen) UPPER LIMB STRUCTURE / Unknown 02/04/2015 8:20 AM EST 02/04/2015 10:42 AM EST Lakisha Gupta APRN CHEMISTRY ORDERABLES Edited Result - Final Performing Organization Address City/[facility]/ZIP Co de Phone Number [facility] 1 [place] [address] documented in this encounter Visit Diagnoses Diagnosis Diabetes mellitus type 2, uncontrolled Type II or unspecified type diabetes mellitus without mention of complication, uncontrolled Dyslipidemia Other and unspecified hyperlipidemia Essential hypertension Unspecified essential hypertension documented in this encounter Care Teams Bar And Filler Assembler Relationship Specialty Start Date End Date Fili Sanchez MD [address] [phone] Internal Medicine-Endocrinology, Diabetes & Metabolism 04/11/14 documented as of this encounter
--- OUTSIDE RECORDS SUMMARY | 2024-01-18 15:00 | XMS_ITS | Encounter Summary ---
Author Organization [place] [address] Care Team Providers Care Radiographic Technologist Name Role Phone Fili Sanchez MD Unavailable [phone] Encounter Details Date Type Department Care Team (Latest Contact Info) Description 07/31/2015 1:00 PM EDT - 07/31/2015 11:59 PM EDT Hospital Encounter [facility] [address] [place] [address] Diabetes mellitus type 2, uncontrolled (HCC); Dyslipidemia [...] AM EDT Office Visit [facility] Nephrology [place] [address] [place] [address] Julio Silva MD [address] [place] [address] Scheduled Orders Name Type Priority Associated Diagnoses Orde r Schedule OP VENIPUNCTURE CHARGE Lab Timed Diabetes mellitus type 2, uncontrolled (HCC) Dyslipidemia One Time for 1 Occurrences starting 07/31/2015 until 07/31/2015 documented as of this encounter Procedures Procedure Name Priority Date/Time Associated Diagnosis Comments MICROALBUMIN/CREATINI NE RATIO URINE Routine 07/31/2015 1:24 PM EDT Diabetes mellitus type 2, uncontrolled (HCC) LDL, CALCULATED Routine 07/31/2015 1:04 PM EDT LIPID PANEL REFLEX Routine 07/31/2015 1: 04 PM EDT Dyslipidemia VITAMIN D 25 HYDROXY Routine 07/31/2015 1:04 PM EDT Diabetes mellitus type 2, uncontrolled (HCC) THYROID STIMULATING HORMONE Routine 07/31/2015 1:04 PM EDT Diabetes mellitus type 2, uncontrolled (HCC) HEMOGLOBIN A1C Routine 07/31/2015 1:04 PM EDT Diabetes mellitus type 2, uncontrolled (HCC) COMPREHENSIVE METABOLIC PANEL Routine 07/31/2015 1:04 PM EDT Diabetes mellitus type 2, uncontrolled (HCC) documented in this encounter Results * MICROALBUMIN/CREATININE RATIO URINE (07/31/2015 1:24 PM EDT) Urine Microalb <12.0 mg/L [facility] Urine Creatinine 27.1 mg/dL [facility] Ur Microalb/Creat See Footnote 0 - 30 [facility] Comment:Unable to calculate due to value outside linearity. Urine specimen (specimen) 07/31/2015 1:24 PM EDT 07/31/2015 7:29 PM EDT Result [facility] Lakisha Gupta DOG OBEDIENCE INSTRUCTOR URINE ORDERABLES Final Resul t Performing Organization Address [facility] Co de Phone Number [facility] 1 [place] [address] * LDL, CALCULATED (07/31/2015 1:04 PM EDT) [facility] LDL Calculated 74 <=100 mg/dL [facility] Comment: ??< 100 ?Optimal 100 - 129 ? Near or above optimal 130 - 159 ? Borderline High 160 - 189 ? High >= 190 ?Very High Blood specimen (specimen) 07/31/2015 1:04 PM EDT 07/31/2015 6:22 PM EDT Result [facility] Lakisha Gupta APRN CHEMISTRY ORDERABLES Final R esult Performing Organization Address [facility] de Phone Number [facility] 1 [place] [address] * VITAMIN D 25 HYDROXY (07/31/2015 1:04 PM EDT) [facility] VIT D 25 OH 31.4 30.0 - 120.0 ng/mL [facility] Comment: INTERPRETIVE INFORMATION: ??Vitamin D, 25-Hydroxy [...] Final R esult Performing Organization Address [facility] de Phone Number [facility] 1 [place] [address] * THYROID STIMULATING HORMONE (07/31/2015 1:04 PM EDT) TSH 2.210 0.270 - 4.200 mcIU/mL [facility] Blood specimen (specimen) 07/31/2015 1:04 PM EDT 07/31/2015 6:22 PM EDT Lakisha Gupta APRN CHEMISTRY ORDERABLES Final R esult Performing Organization Address [facility] de Phone Number [facility] [address] [place] [address] * LIPID PANEL REFLEX (07/31/2015 1:04 PM EDT) Cholesterol 145 <=200 mg/dL [facility] Comment: < 200 ?Desirable 200 - 239 ? Borderline High >= 240 ?High Triglyceride 77 <=150 mg/dL [facility] Comment: < 150 ? Normal 150 - 199 ?Borderline High 200 - 499 ?High ??>= 500 ? Very High HDL 56 >=40 mg/dL [facility] Comment: ?? > 60 ?Optimal 40 - 60 ?Acceptable ?? < 40 ?Low Blood specimen (specimen) 07/31/2015 1:04 PM EDT 07/31/2015 6:22 PM EDT Lakisha Gupta APRN CHEMISTRY ORDERABLES Final R esult Performing Organization Address [facility] de Phone Number [facility] 1 [place] [address] * HEMOGLOBIN A1C (07/31/2015 1:04 PM EDT) Hgb A1c 6.9 <=7.0 % [facility] Comment: Reference Interval for Hgb A1c Hgb A1c ?Interpretation ? < 6.0 ?Non-Diabetic Range 6.0 - 7.0 ? ADA Therapeutic Target ??> 7.0 ? Action suggested Blood specimen (specimen) 07/31/2015 1:04 PM EDT 07/31/2015 6:21 PM EDT Lakisha Gupta APRN CHEMISTRY ORDERABLES Final R esult [facility] [address] [place] [address] * (ABNORMAL) COMPREHENSIVE METABOLIC PANEL (07/31/2015 1:04 PM EDT) Sodium 142 136 - 145 mmol/L [facility] Potassium 4.5 3.5 - 5.0 mmol/L [facility] Chloride 102 98 - 107 mmol/L [facility] Total CO2 27 22 - 29 mmol/L [facility] Anion Gap 13 7 - 16 mmol/L [facility] Calcium 10.1 8.8 - 10.2 mg/dL [facility] Glucose Lvl 70(L) 82 - 100 mg/dL [facility] BUN 15 8 - 23 mg/dL [facility] Creatinine 0.90 0.67 - 1.30 mg/dL [facility] Albumin 4.2 3.2 - 4.6 gm/dL [facility] Total Protein 7.2 6.4 - 8.3 gm/dL [facility] Bili Total 0.3 0.1 - 1.4 mg/dL [facility] AST 25 <=40 IU/L [facility] ALT 23 <=41 IU/L [facility] Alk Phos 52 40 - 129 IU/L [facility] GFR Afr Am >60 [facility] GFR Non Afr Am >60 [facility] Blood specimen (specimen) 07/31/2015 1:04 PM EDT 07/31/2015 6:22 PM EDT Lakisha Gupta DOG OBEDIENCE INSTRUCTOR CHEMISTRY ORDERABLES Edited Result - Final [facility] [address] [place] [address] documented in this encounter Visit Diagnoses Diagnosis Diabetes mellitus type 2, uncontrolled Type II or unspecified type diabetes mellitus without mention of complication, uncontrolled Dyslipidemia Other and unspecified hyperlipidemia documented in this encounter Care Teams Radiographic Technologist Relationship Specialty Start Date End Date Fili Sanchez MD [address] [address] Internal Medicine-Endocrinology, Diabetes & Metabolism 04/11/14 documented as of this encounter
--- OUTSIDE RECORDS SUMMARY | 2024-01-18 15:00 | XMS_ITS | Encounter Summary ---
Author Organization [place] [address] Care Team Providers Care Fashion Design Professor Name Role Phone Fili Sanchez MD Unavailable [phone] Encounter Details Date Type Department Care Team (Late Contact Info) Description 10/03/2014 Orders Only [facility] [address] [address] Amanda Weber RMA Male erectile disorder (Primary Dx); Screening PSA (prostate specific antigen); Diabetes mellitus type 2, uncontrolled (HCC) Social [...] End Date vardenafil (LEVITRA) 20 mg Oral TabletIndications: Male erectile disorder,Screening PSA (prostate specific antigen),Diabetes mellitus type 2, uncontrolled Take 1 Tab by mouth as needed for Erectile Dysfunction. 10 Tab 11 10/03/2014 6 documented in this encounter Plan of Treatment Upcoming Encounters Date Type Department Care Team (Late Contact Info) Description 04/26/2024 9:00 AM EDT Office Visit [facility] Nephrology [place] [address] [place] [address] Julio Silva MD [address] [place] [address] documented as of this encounter Visit Diagnoses Diagnosis Male erectile disorder- Primary Impotence of organic origin Screening PSA (prostate specific antigen) Special screening for malignant neoplasm of prostate Diabetes mellitus type 2, uncontrolled Type II or unspecified type diabetes mellitus without mention of complication, uncontrolled documented in this encounter Discontinued Medications Medication Sig Discontinue Reason Start Date End Da te vardenafil (LEVITRA) 20 mg Oral TabletIndications:Male erectile disorder,Screening PSA (prostate specific antigen),Diabetes mellitus type 2, uncontrolled Take 1 Tab by mouth as needed for Erectile Dysfunction. Reorder 04/29/2014 10/03/2014 documented as of this encounter Care Teams Fashion Design Professor Relationship Specialty Start Date End Date Fili Sanchez MD [address] [facility] [address] [place] [address] Internal Medicine-Endocrinology, Diabetes & Metabolism 04/11/14 documented as of this encounter
--- OUTSIDE RECORDS SUMMARY | 2024-01-18 15:00 | XMS_ITS | Encounter Summary ---
Author Organization [place] [address] Care Team Providers Care Service Bar Cashier Name Role Phone Fili Sanchez MD Unavailable Steve Bourne Primary Care Provider [phone] Reason for Visit * Reason Onset Date Comments Other 07/31/2015 Encounter Details Date Type Department Care Team (Late st Contact Info) Description 07/31/2015 Telephone [facility] [address] [facility] [address] [place] [phone] Fili Sanchez MD [address] [phone] Other Social History Tobacco Use Types [...] Telephone Encounter - Huong Thomas RN - 08/29/2015 3:00 PM EDT Letter sent on 08/04/2015 to patient. * Telephone Encounter - Susan Lockhart RN - 07/31/2015 2:18 PM EDT Left message on voice mail to return call. * Telephone Encounter - Julissa Tovar - 07/31/2015 1:12 PM EDT Patient stopped by to say go ahead with ordering the stress test and EKG. Patient is also wonderingif Dr Sanchez was able to find a PCP for him to see. documented in this encounter Plan of Treatment Upcoming Encounters Date Type Department Care Team (Late st Contact Info) Description 04/26/2024 9:00 AM EDT Office Visit [facility] Nephrology [place] [address] [address] Julio Silva MD [address] [address] documented as of this encounter Visit Diagnoses Not on filedocumented in this encounter Care Teams Service Bar Cashier Relationship Specialty Start Date End Date Steve Bourne [address] [place] [address] PCP - General Family Medicine 08/15/15 07/26/16 Fili Sanchez MD [address] [facility] [address] [place] [address] Internal Medicine-Endocrinology, Diabetes & Metabolism 04/11/14 documented as of this encounter
--- OUTSIDE RECORDS SUMMARY | 2024-01-18 15:00 | XMS_ITS | Encounter Summary ---
Author Organization [place] [address] Care Team Providers Care Food Preparer Name Role Phone Fili Sanchez MD Unavailable [phone] Reason for Visit * Reason Onset Date Comments Medication Change 04/09/2015 Encounter Details Date Type Department Care Team (Late st Contact Info) Description 04/09/2015 Telephone [facility] [address] [address] Tariq Elizondo MD [address] [facility] [place], [place] [id number] Medication Change Social History Tobacco Use Types Packs/Day Years [...] Refills Last Filled Start Date End Date Tadalafil (CIALIS) 20 mg Oral Tablet Take 20 mg by mouth as needed. 10 Tab 11 04/09/2015 07/27/2016 documented in this encounter Miscellaneous Notes * Telephone Encounter - Armida [place] - 04/09/2015 4:15 PM EST Ttp, picking up rx. * Telephone Encounter - Tariq Elizondo MD - 04/09/2015 3:57 PM EST Rx for Cialis sent to pharmacy * Telephone Encounter - Armida [place] - 04/09/2015 11:51 AM EST Pt called, wondering if Levitra can be switched to Cialis. Pts insurance does not cover Levitra butwill cover Cialis. Please advise. documented in this encounter Plan of Treatment Upcoming Encounters Date Type Department Care Team (Late st Contact Info) Description 04/26/2024 9:00 AM EDT Office Visit [facility] Nephrology [place] [address] [facility] [address] [place] [address] Julio Silva MD [address] [facility] [address] [place] [address] documented as of this encounter Visit Diagnoses Not on filedocumented in this encounter Care Teams Food Preparer Relationship Specialty Start Date End Date Fili Sanchez MD [address] [facility] [address] [place] [address] Internal Medicine-Endocrinology, Diabetes & Metabolism 04/11/14 documented as of this encounter
--- OUTSIDE RECORDS SUMMARY | 2024-01-18 15:00 | XMS_ITS | Encounter Summary ---
Author Organization [place] [address] Care Team Providers Care Domestic Technician Name Role Phone Fili Sanchez MD Unavailable [phone] Reason for Visit * Reason Onset Date Comments Medication Refill 06/04/2014 Encounter Details Date Type Department Care Team (Late st Contact Info) Description 06/04/2014 [facility]phone [facility] [place] [address] [facility] [address] [place] [phone] Fili Sanchez MD [address] [address] Medication Refill Social History Tobacco [...] daily (before meals). Takes one tab daily 60 Tab 11 06/04/2014 08/13/2014 documented in this encounter Miscellaneous Notes * Telephone Encounter - Julia Redd LPN - 06/04/2014 2:21 PM EDT Patient calling the triage line for a refill of glipizide. Script sent to the pharmacy. documented in this encounter Plan of Treatment Upcoming Encounters Date Type Department Care Team (Late st Contact Info) Description 04/26/2024 9:00 AM EDT Office Visit [facility] Nephrology [place] [address] [facility] [address] [address] Julio Silva MD [address] [facility] [address] [address] documented as of this encounter Visit Diagnoses Not on filedocumented in this encounter Discontinued Medications Medication Sig Discontinue Reason Start Date End Da te glipiZIDE (GLUCOTROL) 5 mg Oral Tablet Take 5 mg by mouth 2 times daily (before meals). Takes one tab daily Reorder 06/04/2014 documented as of this encounter Care Teams Domestic Technician Relationship Specialty Start Date End Date Fili Sanchez MD [address] [address] Internal Medicine-Endocrinology, Diabetes & Metabolism 04/11/14 documented as of this encounter
--- OUTSIDE RECORDS SUMMARY | 2024-01-18 15:00 | XMS_ITS | Encounter Summary ---
Author Organization [place] [address] Care Team Providers Care Blister Packaging Machine Operator Name Role Phone Fili Sanchez MD Unavailable Reason for Visit * Reason Onset Date Comments Labs Only 12/20/2014 Encounter Details Date Type Department Care Team (Late st Contact Info) Description 12/20/2014 Telephone [facility] Diabetes [place] [address] [facility] [address] [place] [phone] Fili Sanchez MD [address] [facility] [address] [place] [phone] Labs Only Social History Tobacco Use [...] Miscellaneous Notes * Telephone Encounter - Sonali Don, [facility] - 12/20/2014 4:00 PM EST Called patient about getting fasting labs and he stated that he would need to reschedule due to hiswork schedule. Patient was transferred to [facility]. documented in this encounter Plan of Treatment Upcoming Encounters Date Type Department Care Team (Late st Contact Info) Description 04/26/2024 9:00 AM EDT Office Visit [facility] Nephrology [place] [address] [facility] [address] [place] [address] Julio Silva MD [address] [facility] [address] [place] [address] documented as of this encounter Visit Diagnoses Not on filedocumented in this encounter Care Teams Blister Packaging Machine Operator Relationship Specialty Start Date End Date Fili Sanchez MD [address] [facility] [address] [place] [phone] Internal Medicine-Endocrinology, Diabetes & Metabolism 04/11/14 documented as of this encounter
--- OUTSIDE RECORDS SUMMARY | 2024-01-18 15:01 | XMS_ITS | Encounter Summary ---
Author Organization [place] [address] Care Team Providers Care Planner Internship Name Role Phone Fili Sanchez MD Unavailable [phone] Reason for Visit * Reason Comments Diabetes type 2 Encounter Details Date Type Department Care Team (Late st Contact Info) Description 04/11/2014 8:20 AM EST [facility] [place] [address] [facility] [address] [place] [phone] Fili Sanchez MD [address] [facility] [address] [place] [phone] Diabetes mellitus type 2, uncontrolled (HCC) (Primary Dx); HTN (hypertension); Dyslipidemia; Male erectile disorder Social History Tobacco Use Types Packs/Day Years Used Date Smoking Tobacco: Every Day Cigarettes Alcohol Use Standard Drinks/Week Comments Yes 0 [...] Sign Reading Time Taken Comments Blood Pressure 103/66 04/11/2014 8:43 AM EST Pulse 102 04/11/2014 8:43 AM EST Temperature - - Respiratory Rate 16 04/11/2014 8:43 AM EST Oxygen Saturation - - Inhaled Oxygen Concentration - - Weight 102.9 kg (226 lb 12.8 oz) 04/11/2014 8:43 AM EST Height 186.1 cm (6' 1.25 ) 04/11/2014 8:43 AM JANKI HILARIO Body Mass Index 29.72 04/11/2014 8:43 AM EST documented in this encounter Ordered Prescriptions Prescription Sig Dispense Quantity Refills Last Filled Start Date End Date aspirin (ASPIRIN) 81 mg Oral Tablet, Chewable Take 1 Tab by mouth daily. 30 Tab 0 04/11/2014 sitaGLIPtin (JANUVIA) 100 mg Oral Tablet Take 1 Tab by mouth daily (with breakfast). Take 1/2 tab daily with meals to equal 50 mg. 30 Tab 11 04/11/2014 08/13/2014 losartan (COZAAR) 25 mg Oral Tablet Take 1 Tab by mouth daily. 30 Tab 11 04/11/2014 08/13/2014 documented in this encounter Progress Notes * Socorro Anand RD,CDE - 04/11/2014 9:32 AM EST DIABETES EDUCATION ASSESSMENT (INDIVIDUAL) AND PROGRESS NOTE- Start Time: 9:25 a.m. End Time: 10:10 am TO REFERRING MD-Patient will need the following supplies: ?? Patient isn't sure of the meter he is using. He will have to let us know. He wants to continue using his meter. He didn't want another meter today. INSTRUCTED ON: ??? Basic Nutrition- basic nutrition and label reading. Carbohydrates make the blood sugar rise. ??? Blood Glucose Monitoring- test times, targets, sharps disposal, and A1C goal. ??? Physical Activity- the advantages and precautions. ??? Diabetes Medicines- use, action, duration, side effects and adherence. ??? Hypoglycemia- signs, symptoms, and treatment. ??? Hyperglycemia- signs, symptoms, treatment, and DKA prevention. ? ? Diabetes Basics-DM Type 1 & 2, behavior change and goal setting. FOLLOW-UP PLAN: When and if his schedule will allow Group Classes no Individual class (must have an MD order for individual) No MNT Other: READINESS TO CHANGE AND GOAL SETTING 1) What CONCERNS the patient most today about caring for their diabetes? Patient concerns are: Medications 2) Ask the patient: If there was one thing YOU could CHANGE to better your health right now, what would that be? He wants to be on the right medications. AADE 7 Self Care Behaviors are: Healthy Eating Being Active Monitoring Taking Medications Reducing Risks- Acute Complications Reducing Risks- Chronic Complications Healthy Coping & Stress management OTHER- 3) What stands in the way of making that change? Not knowing - the doctors are telling him different things NARRATIVE CHARTING- Chart Reviewed. HEALTH BELIEFS AND ATTITUDES Been living in [place] since November 2013 - moved from [place] 1) The patient rates their overall health as? fair 2) Previous diabetes education? yes If yes when and where? 3) Does the patient know what type of diabetes they have?yes 4) Planning a ? no If Yes or of childbearing age- using control? N/A Is there a History of gestational diabetes? N/A DIABETES NUTRITION ASSESSMENT Height- 6'1.25 Actual Weight 226 # BMI- 1) Has there been unintentional weight gain or loss? no If yes -how many lbs. and in what time frame: 2) What time get up in the morning? He sleeps at all times. Go to bed? He doesn't sleep well 3) How does the patient describe their appetite? good 4) Are there chewing or swallowing problems? yes If yes describe: 5) Are there food allergies or intolerances? no If yes describe: 6) Does the patient have an eating disorder? no If yes describe: 7) Moods or stress affect eating habits? not significantly changed If yes describe: 8) Is the patient following a special diet?- no If yes describe: 9) Does patient drink alcohol? yes He used to drink 5 - 6 beers a night and then on the weekends hecould drink 18 beers on a weekend, but now he doesn't drink but maybe one beer a week. 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 If yes describe: 10) Who does the cooking? Self and girlfriend (he likes to eat organic foods) 11) Does the patient dine out? yes If yes describe where and how often: FOOD RECALL - he takes a calcium citrate pill and a one a day vitamin Which meal/s are skipped?- He packs his meals (he packs whole wheat bread with turkey and ham) 1st Meal Time- Varies List foods and beverages He does like breakfast - he will eat a western omellette with ron pepper and vegetables with ham or horowitz and dry wheat toast with potatoes 1/2 servings 2nd Meal Time- Varies List foods and beverages He will pack a couple of sandwiches or if he is on a layover then he will eat a salad or soup or chili 3rd Meal Time- Varies List foods and beverages [place] or soup or salad Snacks (when and what)- Broccoli , carrots, celery , he gets the natural chips (sometimes) he likesorganic foods (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 EXERCISE AND SELF CARE 1) Is there a physical activity/exercise program? yes If Yes -list the type, frequency, and duration: 2) See the dentist regularly? yes 2a) Raymond and floss teeth? yes 3) Check feet regularly? yes PSYCHOSOCIAL AND SOCIOECONOMIC 1) Are there cultural/bahai practices or beliefs that influence how the patient will care for their diabetes? 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 - or 12:00 noon or 2:00 a.m. Or 10:00 p.m. (if the patient is retired or is unemployed say none ) 3) Highest grade of education completed? Hs G =grade school H =high school SC =some college C =college 4) Who does the patient go to for support? Girlfriend, and daughter and his son 5) Style of learning is- reading R = reading L =listening W =watching D =doing RE=repetition 6) Barriers to learning- none R =reading/writing C =cognitive/mental P =physical E =emotional REL =bahai/cultural M =motivation/desire H =hearing V=vision 7) Developed any recent problems such as stroke, deafness or hard of hearing, speech, memory, activities of daily living? no If yes describe: MEDICATIONS AND INSULIN PUMP Reviewed current oral and injection medications. Assessed type, dose, route, and frequency. Insulin pump- reviewed the following in the Insulin Pump flowsheet and chart: 1) Always refill prescriptions on time? yes If NO, why? 2) How is the insulin/GLP-1 stored at home? na Place an R for refrigerated 3) Using a Vial and Syringe? N/A 3a) If Yes:: Use a new syringe for each injection, able to draw up dose accurately and injecting the insulin correctly? N/A 4) Using an insulin pen? N/A 4a) If Yes: Use a new pen needle for each injection, able to dial up dose accurately, perform a safety test, and inject the insulin appropriately? N/A 5) Using an insulin Pump? N/A 5a) Change set every 2-3 days? N/A Flowsheet documentation include Type, Model, Year, Infusion set type, all rates and settings. 6) Using a GLP-1? N/A 6a) Correct use of GLP-1 pen, according to schedule? N/A 7) Injection site inspection- Signs of lipohypertrophy? N/A If yes describe: MONITORING 1) What type of meter currently using? Not sure 2) How many times a day testing glucose? 1 every 3 days 3) What type of meter was provided today?- None - he wants to keep using his meter 4) Patient performed a self-fingerstick during this teaching session, blood glucose reading- --- mg/dl 5) Ever experienced a Hypoglycemic reaction? yes (If yes describe:signs, symptoms, and treatment including the use of glucagon) 6) Carry diabetes identification? no (If No -card provided to patient today) 7) Have signs and symptoms of hyperglycemia, DKA, HNS? yes If yes describe symptoms 8) Does the patient test their urine for ketones? no IDENTIFIED LEARNING NEEDS- X = learning need/s xx Basic Diabetes Self-management xMonitoring Basic Nutrition xCarbohydrate Counting Glycemic Index Weight Loss Insulin Initiation Multiple Daily Injections Injection Rotation New Insulin Scale GLP Start Amylin Start Hypoglycemia Treatment Glucagon Injection Ketone Testing Sick Day Management Exercise DIABETES EDUCATION RECORD INITIAL ASSESSMENT AND CODES INSTRUCTION/REINFORCEMENT 1-Knowledge deficit, needs instruction 2-Needs Review/reinforcement 3-Verbalizes/demonstrates understanding N/A-Not Applicable Desired Goals: Patient/Significant Other Can: 1 DIABETES-Define, state type of diabetes, and responsibility for self care 1 PSYCHOSOCIAL ASPECTS-Identify sources of stress in caring for diabetes. 1 NUTRITION THERAPY- Recognize basic nutrition and label reading. Identify how carbohydrates effects BG. Develop strategies to dine out healthy. 1 PHYSICAL ACTIVITY- State the importance, benefits, and side effects on Blood Glucose. 1 MEDICATIONS- State name, dose, time, onset, peak, duration, side effects, carb to insulin ratio, correction. Demonstrate proper injection technique. Insulin pumps-demonstrate proper operation. 1 SELF MONITORING- Demonstrate proper use of meter, lancet disposal, testing schedule, target BG and other routine tests 1 ACUTE COMPLICATIONS- State prevention, detection, treatment of hypo and hyper glycemia, and stateproper rules for sick day management and ketone test. 1 CHRONIC COMPLICATIONS- State the benefits and risks of blood sugar control. 1 HEALTH HABITS- Recognize self-care habits and screenings for health. 1 BEHAVIOR CHANGE/COMMUNITY RESOURCES FOR HEALTH- Identify behavior change goals, state reasons forfollow-up healthcare appointments. NA DIABETES & - State relationships of blood sugar control and maternal and complications. THE PATIENT WAS PROVIDED WITH THE FOLLOWING: X = Booklets/handouts provided to patient xxx New Patient Packet- Your Introduction to the Basics for Diabetes Care and Control Carbohydrate Counting Exchanges xDiabetes Weight Loss Ketone/Sick day/DKA Exercise Hypoglycemia Glucagon HypoKit Pumping Insulin CGMS (Sensoring) Sleep Disorder Diabetes & Stress Log Books Insulin Start Kit (pens/syringes) Victoza Start Kit Byetta Start Kit Symlin Start Kit Bydureon Start Kit Tanzeum Start Kit Trulicity Start Kit * Sonali Don RMA - 04/11/2014 8:53 AM EST Last finger stick was 107 nonfasting-yesterday per pt. The day before his fasting morning BS was 88. Didn't bring meter - cks BS every couple days Pharm Verified * Fili Sanchez MD - 04/11/2014 8:48 AM EST Endocrinology Consult Note Self Referral. Primary Care Provider: None Chief Complaint Patient presents with ??? Diabetes type 2 HPI Dane Ray is a 63 y.o. male who presents today to establish care for Diabetes Mellitus. He moved from [place] to [place] last year. He has Type 2 Diabetes since 2003.He was diagnosed with regular blood test. Current diabetes regimen includes Metformin 1000 mg twice a day. Glipizide 5 mg twice a day. Checks BS infrequently and they usually run in 100 to above 200's at times. Reports he has been losing weight. Admits to polyuria though no polydipsia. Denies numbness and tingling in the feet. Last eye exam was Review of Systems Constitutional: Positive for appetite change. HENT: Negative. Eyes: Negative. Respiratory: Positive for cough. Cardiovascular: Positive for leg swelling. Gastrointestinal: Negative. Endocrine: Positive for polyuria. Genitourinary: Erectile disorder. Musculoskeletal: Negative. Skin: Negative. Allergic/Immunologic: Negative. Neurological: Negative. Hematological: Negative. Psychiatric/Behavioral: Negative. Past Medical History Diagnosis Date ??? Diabetes mellitus ??? High blood pressure ??? Hyperlipidemia History reviewed. No pertinent past surgical history. Current Outpatient Prescriptions Medication ??? metFORMIN (GLUCOPHAGE) 500 mg Oral Tablet ??? simvastatin (ZOCOR) 40 mg Oral Tablet ??? glipiZIDE (GLUCOTROL) 5 mg Oral Tablet ??? pravastatin (PRAVACHOL) 20 mg Oral Tablet ??? losartan (COZAAR) 25 mg Oral Tablet ??? aspirin (ASPIRIN) 81 mg Oral Tablet, Chewable ??? sitaGLIPtin (JANUVIA) 100 mg Oral Tablet No current facility-administered medications for this visit. No Known Allergies Family History Problem Relation Age of Onset ??? Heart Attack Mother ??? Diabetes Father ??? Heart Attack Father History Social History ??? Marital Status: Single Spouse Name: N/A Number of Children: N/A ??? Years of Education: N/A Occupational History ??? Not on file. Social History Main Topics ??? Smoking status: Current Every Day Smoker -- 1.00 packs/day ??? Smokeless tobacco: Not on file ??? Alcohol Use: Yes Comment: 0-1 WEEKLY ??? Drug Use: No ??? Sexual Activity: Not on file Other Topics Concern ??? Not on file Social History Narrative ??? No narrative on file Objective Objective: Filed Vitals: 04/11/14 0843 BP: 103/66 Pulse: 102 Resp: 16 Height: 6' 1.25 (1.861 m) Weight: 226 lb 12.8 oz (102.876 kg) Filed Vitals: 04/11/14 0843 Height: 6' 1.25 (1.861 m) Weight: 226 lb 12.8 oz (102.876 kg) Body mass index is 29.7 kg/(m^2). Physical Exam Constitutional: He is oriented to [...] normal. Judgment and thought content normal. Laboratory: Assessment and Plan: 1. Diabetes Mellitus Type 2 Uncontrolled Plan Continue metformin and Glipizide Add Januvia 50 mg once a day. The risks, benefits, and FDA indications of this treatment were discussed. No personal or FHx of pancreatitis or thyroid cancer . Advised to contact us in case of side effects jorge GI symptoms in the form of nausea, abdominal distention or belching. -check fingerstick 1-2 times a day -met with the milking worker. -Hypoglycemic symptoms;its prevention and treatment was discussed. -Advised about regular exercise and dietary modification. -Blood glucose control and its importance in the prevention of senior living complications of diabetes were discussed. Discussed that the targets for fingerstick accuchecks are 70-130 before meals and 110-150 at bedtime. -The targets for diabetes were also discussed ie Hemoglobin A1c of less than 7%, Blood pressure of less than 140/90 and LDL cholesterol of less than 100 mg/dl. Diabetes Health Maintance: Eye exam: Advised yearly eye exam. Foot exam: 03/2014 Micro-albumin: ordered MATT/ARB: Complains of cough with lisinopril. Switched to Losartan ASA: 81 mg once a day. Smoking: Advised to quit. 2. HTN: Complains of cough with lisinopril. Switched to Losartan 3. Dyslipidemia Was taking two statins. Advised to take simvastatin 40 mg once a day. Check fastinglipid panel. 4. Erectile disorder. Has tried Cialis and viagara in the past. Was not helpful. Check 8 Am testosterone levels. 8 AM fasting labs and follow up in 3 months. documented in this encounter Miscellaneous Notes * Patient Instructions - Fili Sanchez MD - 04/11/2014 9:21 AM EST 8 AM fasting blood test Look up the tapping solution Arun Look up Heaven documented in this encounter Plan of Treatment Upcoming Encounters Date Type Department Care Team (Late st Contact Info) Description 04/26/2024 9:00 AM EDT Office Visit [facility] Nephrology [place] [address] [place] [address] Julio Silva MD [address] [place] [address] documented as of this encounter Results * (ABNORMAL) MICROALBUMIN/CREATININE RATIO URINE (04/16/2014 10:45 AM EST) [facility] Signature Urine Microalb 65.0 mg/L [facility] Urine Creatinine 79.5 mg/dL [facility] Ur Microalb/Creat 82(H) 0 - 20 mg/gm [facility] Urine specimen (specimen) 04/16/2014 10:45 AM EST 04/16/2014 4:35 PM EST Fili Sanchez MD URINE ORDERABLES Edited Result - Final [facility] [address] [place] [address] * T4, FREE (THYROXINE) (04/16/2014 10:41 AM EST) Pathologist [facility] Free T4 1.27 0.93 - 1.70 ng/dL [facility] Blood specimen (specimen) UPPER LIMB STRUCTURE / Unknown 04/16/2014 10:41 AM EST 04/16/2014 1:57 PM EST Fili Sanchez MD CHEMISTRY ORDERABLES Fin al Result Performing Organization Address [facility] Co de Phone Number [facility] [address] [place] [address] * THYROID STIMULATING HORMONE (04/16/2014 10:41 AM EST) [facility] TSH 1.180 0.270 - 4.200 mcIU/mL [facility] Blood specimen (specimen) UPPER LIMB STRUCTURE / Unknown 04/16/2014 10:41 AM EST 04/16/2014 1:57 PM EST Narrative [facility] - 04/16/2014 4:15 PM EST Before the next appointment. Fili Sanchez MD CHEMISTRY ORDERABLES Fin al Result Performing Organization Address [facility] de Phone Number [facility] [address] [place] [address] * TESTOSTERONE LEVEL TOTAL (04/16/2014 10:41 AM EST) [facility] Testosterone Lvl 300 193 - 740 ng/dL [facility] Comment: Values less than 12 ng/dL are not reliable as the intermediate precision coefficient of variation is > 20%. Blood specimen (specimen) UPPER LIMB STRUCTURE / Unknown 04/16/2014 10:41 AM EST 04/16/2014 1:58 PM EST Fili Sanchez MD CHEMISTRY ORDERABLES Fin al Result Performing Organization Address [facility] Co de Phone Number [facility] [address] [place] [address] * (ABNORMAL) HEMOGLOBIN A1C (04/16/2014 10:41 AM EST) [facility] Hgb A1c 7.4(H) <=7.0 % [facility] Comment: Initial Diagnostic Criteria < 5.7 % ?Normal 5.7 - 6.4 % ? At risk for diabetes mellitus >= 6.5 % ?Consistent with diabetes mellitus Diabetes monitoring Target Value (ADA recommended): ?< 7 % Blood specimen (specimen) UPPER LIMB STRUCTURE / Unknown 04/16/2014 10:41 AM EST 04/16/2014 1:58 PM EST Fili Sanchez MD CHEMISTRY ORDERABLES Fin al Result [facility] [address] [place] [address] * (ABNORMAL) COMPREHENSIVE METABOLIC PANEL (04/16/2014 10:41 AM EST) Sodium 140 136 - 145 mmol/L [facility] Potassium 4.3 3.5 - 5.0 mmol/L [facility] Chloride 99 98 - 107 mmol/L [facility] Total CO2 27 22 - 29 mmol/L [facility] Anion Gap 14 7 - 16 mmol/L [facility] Calcium 10.4(H) 8.8 - 10.2 mg/dL [facility] Glucose Lvl 79(L) 82 - 100 mg/dL [facility] BUN 12 8 - 23 mg/dL [facility] Creatinine 0.89 0.67 - 1.30 mg/dL [facility] Albumin 4.4 3.2 - 4.6 gm/dL [facility] Total Protein 7.8 6.4 - 8.3 gm/dL [facility] Bili Total 0.3 0.1 - 1.4 mg/dL [facility] AST 27 <=40 IU/L [facility] ALT 28 <=41 IU/L [facility] Alk Phos 68 40 - 129 IU/L [facility] GFR Afr Am >60 [facility] Comment: GFR is estimated using creatinine, age, gender, and race. ??GFR has been validated for patients between 18 and 70 years of age. GFR has not been validated for women, patients with serious comorbid conditions, or persons with extremes of body size, muscle mass, or nutritional status. ??For additional information: ??www.kidney.org. GFR Non Afr Am >60 [facility] Blood specimen (specimen) UPPER LIMB STRUCTURE / Unknown 04/16/2014 10:41 AM EST 04/16/2014 1:57 PM EST Fili Sanchez MD CHEMISTRY ORDERABLES Fred duglas Result - Final Performing Organization Address [facility] de Phone Number [facility] [address] [place] [address] * LIPID PANEL REFLEX (04/16/2014 10:41 AM EST) Cholesterol 126 <=200 mg/dL [facility] Comment: < 200 ?Desirable 200 - 239 ? Borderline High >= 240 ?High Triglyceride 51 <=150 mg/dL [facility] Comment: < 150 ? Normal 150 - 199 ?Borderline High 200 - 499 ?High ??>= 500 ? Very High HDL 61 >=40 mg/dL [facility] Comment: ?? > 60 ?Optimal 40 - 60 ?Acceptable ?? < 40 ?Low Blood specimen (specimen) UPPER LIMB STRUCTURE / Unknown 04/16/2014 10:41 AM EST 04/16/2014 1:57 PM EST Fili Sanchez MD CHEMISTRY ORDERABLES Fred duglas Result - Final Performing Organization Address [facility] de Phone Number [facility] [address] [place] [address] documented in this encounter Visit Diagnoses Diagnosis Diabetes mellitus type 2, uncontrolled- Primary Type II or unspecified type diabetes mellitus without mention of complication, uncontrolled HTN (hypertension) Unspecified essential hypertension Dyslipidemia Other and unspecified hyperlipidemia Male erectile disorder Impotence of organic origin Diabetes mellitus type 2, uncontrolled Type II or unspecified type diabetes mellitus without mention of complication, uncontrolled Dyslipidemia Other and unspecified hyperlipidemia Male erectile disorder Impotence of organic origin documented in this encounter Discontinued Medications Medication Sig Discontinue Reason Start Date End Da te lisinopril (PRINIVIL;ZESTRIL) 20 mg Oral Tablet Take 20 mg by mouth daily. Alternate therapy 04/11/2014 documented as of this encounter Historical Medications * This list may reflect changes made after this encounter. lisinopril (PRINIVIL;ZESTRIL ) 20 mg Oral Tablet Take 20 mg by mouth daily. 04/11/2014 glipiZIDE (GLUCOTROL) 5 mg Oral Tablet Take 5 mg by mouth 2 times daily (before meals). Takes one tab daily 06/04/2014 pravastatin (PRAVACHOL) 20 mg Oral Tablet Take 20 mg by mouth daily. WAS TAKING ONE DAILY 08/13/2014 simvastatin (ZOCOR) 40 mg Oral Tablet Take 40 mg by mouth nightly. 08/13/2014 metFORMIN (GLUCOPHAGE) 500 mg Oral Tablet Take by mouth 2 times daily. 07/05/2014 added in this encounter Care Teams Planner Internship Relationship Specialty Start Date End Date Fili Sanchez MD [address] [phone] Internal Medicine-Endocrinology, Diabetes & Metabolism 04/11/14 documented as of this encounter
--- OUTSIDE RECORDS SUMMARY | 2024-01-18 15:01 | XMS_ITS | Encounter Summary ---
Author Organization [place] [address] Care Team Providers Care Superintendent Pipelines Name Role Phone Fili Sanchez MD Unavailable [phone] Reason for Visit * Reason Onset Date Comments Visit Follow Up 04/30/2014 Encounter Details Date Type Department Care Team (Late st Contact Info) Description 04/30/2014 Telephone [facility] Urology [address] [phone] Abril Stoner RMA Visit Follow [...] Notes * Telephone Encounter - Abril Stoner MA - 04/30/2014 10:34 AM EDT Left message documented in this encounter Plan of Treatment Upcoming Encounters Date Type Department Care Team (Late st Contact Info) Description 04/26/2024 9:00 AM EDT Office Visit [facility] Nephrology [address] [place] [address] Julio Silva MD [address] [place] [address] documented as of this encounter Visit Diagnoses Not on filedocumented in this encounter Care Teams Superintendent Pipelines Relationship Specialty Start Date End Date Fili Sanchez MD [address] [facility] [address] [place] [phone] Internal Medicine-Endocrinology, Diabetes & Metabolism 04/11/14 documented as of this encounter
--- OUTSIDE RECORDS SUMMARY | 2024-01-18 15:01 | XMS_ITS | Encounter Summary ---
Author Organization [place] [address] Care Team Providers Care Elephant Keeper Name Role Phone Fili Sanchez MD Unavailable Reason for Visit * Reason Onset Date Comments Results 04/17/2014 Encounter Details Date Type Department Care Team (Late st Contact Info) Description 04/17/[address] [facility] Diabetes [place] [address] [facility] [address] [place] [phone] Fili Sanchez MD [address] [facility] [address] [place] [phone] Results Social History Tobacco Use Types [...] Telephone Encounter - Julia Redd LPN - 04/17/2014 9:54 AM EST Patient aware of results/recommendations. Voiced understanding. Future blood work orders placed. * Telephone Encounter - Julia Redd LPN - 04/17/2014 9:49 AM EST ----- Message from Fili Sanchez MD sent at 04/17/2014 8:31 AM EST ----- hba1c is 7.4% higher than goal Hba1c of less than 7% Januvia should help with bringing diabetes under control. Thyroid function tests and testosterone levels are normal. Urine micro-albumin is high. Better BS control and losartan will help to keep urinary micro-albuminunder control. Hba1c,CMP, fasting lipid panel and urinary micro-albumin before the next appointment. documented in this encounter Plan of Treatment Upcoming Encounters Date Type Department Care Team (Late st Contact Info) Description 04/26/2024 9:00 AM EDT Office Visit [facility] Nephrology [place] [address] [place] [address] Julio Silva MD [address] [place] [address] documented as of this encounter Results * MICROALBUMIN/CREATININE RATIO URINE (08/07/2014 8:01 AM EDT) Urine Microalb <12.0 mg/L [facility] Urine Creatinine 65.4 mg/dL [facility] Ur Microalb/Creat See Footnote 0 - 20 [facility] Comment:Unable to calculate due to value outside linearity. Urine specimen (specimen) 08/07/2014 8:01 AM EDT 08/07/2014 10:36 AM EDT us Fili Sanchez MD URINE ORDERABLES Final R esult [facility] [address] [place] [address] * LIPID PANEL REFLEX (08/07/2014 7:49 AM EDT) Cholesterol 139 <=200 mg/dL [facility] Comment: < 200 ?Desirable 200 - 239 ? Borderline High >= 240 ?High Triglyceride 95 <=150 mg/dL [facility] Comment: < 150 ? Normal 150 - 199 ?Borderline High 200 - 499 ?High ??>= 500 ? Very High HDL 60 >=40 mg/dL [facility] Comment: ?? > 60 ?Optimal 40 - 60 ?Acceptable ?? < 40 ?Low Blood specimen (specimen) UPPER LIMB STRUCTURE / Unknown 08/07/2014 7:49 AM EDT 08/07/2014 10:48 AM EDT Fili Sanchez MD CHEMISTRY ORDERABLES Fred duglas Result - Final Performing Organization Address City/State/[facility] Co de Phone Number [facility] [address] [place] [address] * (ABNORMAL) COMPREHENSIVE METABOLIC PANEL (08/07/2014 7:49 AM EDT) Sodium 138 136 - 145 mmol/L [facility] Potassium 4.2 3.5 - 5.0 mmol/L [facility] Chloride 97(L) 98 - 107 mmol/L [facility] Total CO2 27 22 - 29 mmol/L [facility] Anion Gap 14 7 - 16 mmol/L [facility] Calcium 9.9 8.8 - 10.2 mg/dL [facility] Glucose Lvl 99 82 - 100 mg/dL [facility] BUN 14 8 - 23 mg/dL [facility] Creatinine 0.89 0.67 - 1.30 mg/dL [facility] Albumin 4.2 3.2 - 4.6 gm/dL [facility] Total Protein 7.2 6.4 - 8.3 gm/dL [facility] Bili Total 0.3 0.1 - 1.4 mg/dL [facility] AST 28 <=40 IU/L [facility] ALT 26 <=41 IU/L [facility] Alk Phos 66 40 - 129 IU/L [facility] GFR Afr Am >60 [facility] GFR Non Afr Am >60 [facility] Blood specimen (specimen) UPPER LIMB STRUCTURE / Unknown 08/07/2014 7:49 AM EDT 08/07/2014 10:48 AM EDT Fili Sanchez MD CHEMISTRY ORDERABLES Fred duglas Result - Final Performing Organization Address [facility] de Phone Number [facility] [address] [place] [address] * HEMOGLOBIN A1C (08/07/2014 7:49 AM EDT) Hgb A1c 6.7 <=7.0 % [facility] Comment: Initial Diagnostic Criteria < 5.7 % ?Normal 5.7 - 6.4 % ? At risk for diabetes mellitus >= 6.5 % ?Consistent with diabetes mellitus Diabetes monitoring Target Value (ADA recommended): ?< 7 % Blood specimen (specimen) UPPER LIMB STRUCTURE / Unknown 08/07/2014 7:49 AM EDT 08/07/2014 10:49 AM EDT Fili Sanchez MD CHEMISTRY ORDERABLES Fin al Result Performing Organization Address [facility] de Phone Number [facility] [address] [place] [address] documented in this encounter Visit Diagnoses Diagnosis Diabetes mellitus type 2, uncontrolled- Primary Type II or unspecified type diabetes mellitus without mention of complication, uncontrolled Dyslipidemia Other and unspecified hyperlipidemia documented in this encounter Care Teams Elephant Keeper Relationship Specialty Start Date End Date Fili Sanchez MD [address] [place] [phone] Internal Medicine-Endocrinology, Diabetes & Metabolism 04/11/14 documented as of this encounter
--- OUTSIDE RECORDS SUMMARY | 2024-01-18 15:01 | XMS_ITS | Data Portability ---
Author Organization [facility] INDRA Barron [place] Address [address] [facility] [facility] [address] [place] [address] Assessment No assessment recorded. Plan of Treatment Reminders Order Date Submit Date Provider Last Modified By Organization Details Last Modified Time Details Appointments None record ed. Lab None record ed. Referral None record ed. Procedures None record ed. Surgeries None record ed. Imaging None record ed. Medication Orders None record ed. Patient TargetsNo targets recorded. Patient InstructionsNo instructions recorded. Reason for Referral None Reported. Medical Equipment None Reported. Allergies Allergen ID Allergen Name Allergen Category Reaction Reaction Severity Criticality Documentation Date Start Date Code Code System Note Provider Name and Address Organization Details Recorded Time 601349 rosuvasta tin medicatio n Not available Not available Not available 01/11/2023 35874 2 RxNorm Mayuri Moy [facility] 3 10:59:05 Medications Name Sig Start Date Stop Date Status Note LastModified by Organization Details LastModified Time magnesium active Not Available Not Aranza ilable Not Available ropinirole active Not Available Not Av ailable Not Available torsemide active Not Available Not Aranza ilable Not Available carvedilol active Not Available Not Av ailable Not Available spironolactone active Not Available No t Available Not Available glipizide active Not Available Not Aranza ilable Not Available allopurinol active Not Available Not A vailable Not Available Lexapro active Not Available Not Avail able Not Available Jardiance active Not Available Not Aranza ilable Not Available Entresto active Not Available Not Avai lable Not Available Basaglar KwikPen U-100 Insulin active Not Available Not Available Not Available aspirin 81 mg capsule Take 1 capsule every day by oral route. active Not Available Not Available No t Available Vitals None Recorded Social History Question Answer Notes LastModified by Organizat ion Details LastModified Time Tobacco Smoking Status Never Smoker Mayuri Moy rain, [facility] 01/11/2023 11:04:16 What Is Your Level Of Alcohol Consumption? Moderate [email or web address] Information not available 01/11/2023 Sunscreen Use? No [email or web address] Informatio n not available 01/11/2023 Tanning Bed Use No [email or web address] Informati on not available 01/11/2023 Sex: Male Functional Status None recorded. Mental Status None recorded. Family History Relationship Description Onset Age of this Age Resolved Age Notes LastModified by Organization Details LastModified Time Mother Heart disease Not available 2022 11:03:40 Medical History No medical history recorded. 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 Health Concerns Section Related Observation LastModified by Organization Detai ls LastModified Time None Recorded Concern Status LastModified by Organization Details LastModified Time None Recorded Advance Directives Directive None Recorded Payers Encounter Date Sequence Insurance Name Policy Number Policy Davis Covered Member ID Davis Member ID Guarantor Name 01/11/2023 1 MEDICARE-[place] (MEDICARE) Dane A Nightingale [id number] Dane Nightingale Notes Date Note Type Note Provider Name and Address Organization Details Recorded Time 01/11/2023 text/html I have a single lesion I would like checked. Location: L Ulnar ForearmDuration: 2yrsPrior Treatments: Bx Proven calcinosis CutisReports: It has become tender and I would like it removed. SRUTHI HENDERSON PA-C [address] [place], [address], [facility] 01/12/2023 08:28:15
--- OUTSIDE RECORDS SUMMARY | 2024-01-18 15:01 | XMS_ITS | Encounter Summary ---
Author Organization [place] [address] Care Team Providers Care [employer] Combination Teacher Name Role Phone Fili Sanchez MD Unavailable [phone] Reason for Visit * Reason Comments Erectile Dysfunction * Consultation (Routine) - Closed Specialty Diagnoses / Procedures Referred By Contray t Referred To Contact Urology Diagnoses Male erectile disorder Fili Sanchez MD [address] [address] Phone: tel: fax: Referral ID Status Reason Start Date Expiration Date Visits Re quested Visits Authorized [id number] Closed 04/22/2014 04/22/2015 1 1 Encounter Details Date Type Department Care Team (Late st Contact Info) Description 04/29/2014 10:30 AM EDT Office Visit [facility] [address] [address] Tariq Elizondo MD [facility] [place] [address] Screening PSA (prostate specific antigen) (Primary Dx); Male erectile disorder; Diabetes mellitus type 2, uncontrolled (HCC) Social History Tobacco Use Types Packs/Day Years Used Date Smoking Tobacco: Every Day Cigarettes Smokeless Tobacco: Never Tobacco Cessation:Ready to Q uit: Yes Alcohol Use Standard Drinks/Week Comments Yes 0 [...] Sign Reading Time Taken Comments Blood Pressure 124/74 04/29/2014 10:31 AM EDT Pulse 93 04/29/2014 10:31 AM EDT Temperature - - Respiratory Rate - - Oxygen Saturation - - Inhaled Oxygen Concentration - - Weight 108 kg (238 lb 3.2 oz) 04/29/2014 10:31 A M EDT Height 186.1 cm (6' 1.25 ) 04/29/2014 10:31 AM E DT Body Mass Index 31.21 04/29/2014 10:31 AM EDT documented in this encounter Ordered Prescriptions Prescription Sig Dispense Quantity Refills Last Filled Start Date End Date vardenafil (LEVITRA) 20 mg Oral TabletIndications: Male erectile disorder,Screening PSA (prostate specific antigen),Diabetes mellitus type 2, uncontrolled Take 1 Tab by mouth as needed for Erectile Dysfunction. 10 Tab 11 04/29/2014 5 documented in this encounter Progress Notes * Tariq Elizondo MD - 04/29/2014 10:36 AM EDT [facility] New Male Patient E&M Dane Ray 1950 Chief Complaint(s): Chief Complaint Patient presents with ??? Erectile Dysfunction HPI: 63 y.o. male Synopsis: Dane Ray: New pt diabetic with ED not responsive to Cialis or Viagra. Last T level normal 3-15. No prior PSA.. Erectile Dysfunction/PE/Hypogonadism (New) Last successful intercourse? 6 months ago Quality of erection (stiffness and curvature): Hard to achieve and impossible to maintain How long having trouble? 6 months Loss of sex drive? No Different when masturbates? Same Wake up with erection? No Any trauma or pelvic surgery? No Premature ejaculation? No How long to orgasm: Smoker? No Diabetic? yes Any new prescription/recreational drugs associated with onset? No Tried any treatments, oral ED drugs?: yes Results: Not effective Comments: None Past Medical History: Past Medical History Diagnosis Date ??? Diabetes mellitus ??? High blood pressure ??? Hyperlipidemia History reviewed. No pertinent past surgical history. Current Outpatient Prescriptions Medication Sig Dispense Refill ??? metFORMIN (GLUCOPHAGE) 500 mg Oral Tablet Take by mouth 2 times daily. ??? simvastatin (ZOCOR) 40 mg Oral Tablet Take 40 mg by mouth nightly. ??? glipiZIDE (GLUCOTROL) 5 mg Oral Tablet Take 5 mg by mouth 2 times daily (before meals). Takes one tab daily ??? losartan (COZAAR) 25 mg Oral Tablet Take 1 Tab by mouth daily. 30 Tab 11 ??? aspirin (ASPIRIN) 81 mg Oral Tablet, Chewable Take 1 Tab by mouth daily. 30 Tab 0 ??? sitaGLIPtin (JANUVIA) 100 mg Oral Tablet Take 1 Tab by mouth daily (with breakfast). Take 1/2 tab daily with meals to equal 50 mg. 30 Tab 11 ??? vardenafil (LEVITRA) 20 mg Oral Tablet Take 1 Tab by mouth as needed for Erectile Dysfunction. 10 Tab 11 ??? pravastatin (PRAVACHOL) 20 mg Oral Tablet Take 20 mg by mouth daily. WAS TAKING ONE DAILY No current facility-administered medications for this visit. No Known Allergies Family History: Family History Problem Relation Age of Onset ??? Heart Attack Mother ??? Diabetes Father ??? Heart Attack Father Social History: History Social History ??? Marital Status: Single Spouse Name: N/A Number of Children: N/A ??? Years of Education: N/A Social History Main Topics ??? Smoking status: Current Every Day Smoker -- 1.00 packs/day ??? Smokeless tobacco: Never Used ??? Alcohol Use: Yes Comment: 0-1 WEEKLY ??? Drug Use: No ??? Sexual Activity: None Other Topics Concern ??? None Social History Narrative Urology Specific ROSS: Constitutional: Fever No Weight loss Yes Fatigue No Eyes: Blurred Vision no Double vision No Eye pain No Allergies: Hay fever No Stuffy nose Yes Stuffy ears No Neurological: Tremors No Seizures No Numb/Tingle Yes Cardiovascular: Chest pain No Poor Circulation No Leg cramps No Skin: Rash No Wart No Sores No Genitourinary: Sex issues Yes Pelvic Pain Yes Frequent infxn No Blood & Lymph: Swollen glands No Bleed easily Yes Swollen ankle No Respiratory: SOB No Wheezes Yes Cough Yes Musculoskel: Back pain No Neck pain No Joint pain Yes PHYSICAL EXAM: Constitutional: Vitals Signs: BP 124/74 Pulse 93 Ht 6' 1.25 (1.861 m) Wt 238 lb 3.2 oz (108.047 kg) BMI 31.20 kg/m2 Appearance: Development Normal Nutrition Good Deformities None Sexual Characteristics: Normal Gastointestinal: Abdominal Organs: Masses None Tenderness None Rigidity None Rebound None CVAT None Hernia: Femoral None Inguinal None Liver and Spleen: Liver No Abnormalities Spleen No Abnormalities Hemoccult Test: Not indicated based on today's history Genitourinary: Scrotum: Lesions None Warts None Rash None Cysts None Varicocele Lt None Rt None Epididymus/Vas: Rt Enlarged None Spermatocele None Lt Enlarged None Spermatocele None Testes: Rt Enlarged None Mass None Lt Enlarged None Mass None Penis: Circumcised Yes Phimosis No Peyronie's No Lesions No Prostate: Size 30 Grams Symmetry R=L Tender No Boggy No Nodule No Seminal Vesicles: Palpable No Anus & Perineum: Hemorrhoids No Fissure No Warts No MICHEL: BBC Reflex Intact Mass No Int. rhoids No Tone Good Urethral Meatus: Position Normal Lesion No Discharge No Neuro/Psych: Orientation: Time Yes Place Yes Person Yes Mood & Affect: Anxiety No Depressed No Agitated No Skin: Element 1: Pale No Jaundice No Cyanosis No Turgor Good Element 2: Rash No Lesions No Neck & Thyroid: Neck: Symmetric Yes Swelling No Tender No Thyroid: Enlarged No Nodule No Tender No Respiratory: Respiratory Effort: Labored No Diaphragmatic No Abdominal No Cardiovascular: Peripheral: Femorals Symmetric and strong Carotids Symmetric and strong Edema No Varicosities None Lymphatic: Neck: No Abnormalities Groin: No Abnormalities Muskuloskeletal: Digits & Nails: Digits Normal Nails Normal Gait & Station: Gait Normal Station Normal ENT: External: Ears Normal Nose Normal Mouth Normal Hearing: Whisper test Good hearing at 3 feet Data: POCT Urinalysis: No results found for this visit on 04/29/14. Labs: Lab results were reviewed in [facility] and pertinent positives are documented above in the narrative. Outside paper records reviewed: none Imaging: Imaging studies (both written report and images on file) were reviewed in [facility] and pertinent positives are documented above in the narrative. Outside paper records reviewed: none Existing Medical Record: Progress Notes, Consults and miscellaneous records were reviewed in [facility] and pertinent positives are documented above in the narrative. Outside paper records reviewed: none Diagnoses: 1. Screening PSA (prostate specific antigen) vardenafil (LEVITRA) 20 mg Oral Tablet PROSTATE SPECIFIC ANTIGEN (SCREENING) 2. Male erectile disorder AMB REFERRAL TO UROLOGY vardenafil (LEVITRA) 20 mg Oral Tablet PROSTATE SPECIFIC ANTIGEN (SCREENING) 3. Diabetes mellitus type 2, uncontrolled vardenafil (LEVITRA) 20 mg Oral Tablet PROSTATE SPECIFIC ANTIGEN (SCREENING) Plan: We discussed options including GOLD and implants--he declines both. Wants to try Levitra. See me 3 months. Needs PSA Return: Return in about 3 months (around 07/30/2014). Tariq Elizondo MD 04/29/2014 11:04 AM documented in this encounter Miscellaneous Notes * Patient Instructions - Tariq Elizondo MD - 04/29/2014 11:04 AM EDT Hand Washing Staying healthy is important [...] your hands gets rid of germs you corn picker: ?? From other people. ?? From the surfaces you touch. ?? From the animals you come in contact with. Document Released: 09/21/2005 Document Revised: 04/24/2012 Document Reviewed: 02/26/2009 ExitCare?? Patient Information ??2013 [employer]. documented in this encounter Plan of Treatment Upcoming Encounters Date Type Department Care Team (Late st Contact Info) Description 04/26/2024 9:00 AM EDT Office Visit [facility] Nephrology [place] [address] [place] [address] Julio Silva MD [address] [place] [address] documented as of this encounter Results * PROSTATE SPECIFIC ANTIGEN (SCREENING) (04/29/2014 11:26 AM EDT) Total PSA 1.04 ng/mL [facility] Comment: 2009 AUA Best Practice Statement Guidelines-Age Adjusted Reference Intervals: Age Range ? Whites ?Americans ? Americans 40-49 years ? 0-2.5 ng/mL ? 0-2.0 ng/mL ? 0-2.0 ng/mL 50-59 years ? 0-3.5 ng/mL ? 0-4.0 ng/mL ? 0-3.0 ng/mL 60-69 years ? 0-4.5 ng/mL ? 0-4.5 ng/mL ? 0-4.0 ng/mL 70-79 years ? 0-6.5 ng/mL ? 0-5.5 ng/mL ? 0-5.0 ng/mL [facility] uses the [employer] Total PSA assay, which is approved as an aid in detecting prostate cancer when used in conjunction with digital rectal exam in men 50 years or older and also as an adjunctive test to aid in the management of prostate cancer patients. ?? Prostatic biopsy is required for the diagnosis of cancer. ??Values obtained with different assay methods should not be used interchangeably. ??Consider the above as guidelines only. ??The risk of prostate cancer is a continuum across a range of PSA levels, with increasing risk as the PSA increases. Blood specimen (specimen) UPPER LIMB STRUCTURE / Unknown 04/29/2014 11:26 AM EDT 04/29/2014 1:44 PM EDT us Tariq Elizondo MD CHEMISTRY ORDERABLES Final R esult [facility] [address] [id number] documented in this encounter Visit Diagnoses Diagnosis Screening PSA (prostate specific antigen)- Primary Special screening for malignant neoplasm of prostate Male erectile disorder Impotence of organic origin Diabetes mellitus type 2, uncontrolled Type II or unspecified type diabetes mellitus without mention of complication, uncontrolled documented in this encounter Orders Outpatient Referral Count Last Ordered Date Fir st Ordered Date AMB REFERRAL TO UROLOGY 1 04/29/2014 documented in this encounter Care Teams [employer] Combination Teacher Relationship Specialty Start Date End Date Fili Sanchez MD [address] [address] Internal Medicine-Endocrinology, Diabetes & Metabolism 04/11/14 documented as of this encounter
--- OUTSIDE RECORDS SUMMARY | 2024-01-18 15:01 | XMS_ITS | Encounter Summary ---
Author Organization [place] [address] Care Team Providers Care Industrial Custodian Name Role Phone Fili Sanchez MD Unavailable Encounter Details Date Type Department Care Team (Latest Contact Info) Description 04/16/2014 10:30 AM EST - 04/16/2014 11:59 PM [facility] [[email or web address] Hospital Encounter [facility] [address] [place] [id number] Diabetes mellitus type 2, uncontrolled (HCC); Dyslipidemia; Male erectile disorder Discharge Disposition: Home or Self Care [...] AM EDT Office Visit [facility] Nephrology [place] [address] [address] Julio Silva MD [address] [place] [address] Scheduled Orders Name Type Priority Associated Diagnoses Orde r Schedule OP VENIPUNCTURE CHARGE Lab Timed Diabetes mellitus type 2, uncontrolled (HCC) Dyslipidemia Male erectile disorder One Time for 1 Occurrences starting 04/16/2014 until 04/16/2014 documented as of this encounter Procedures Procedure Name Priority Date/Time Associated Diagnosis Comments MICROALBUMIN/CREATINI NE RATIO URINE Routine 04/16/2014 10:45 AM EST Diabetes mellitus type 2, uncontrolled (HCC) LDL, CALCULATED Routine 04/16/2014 10:41 AM EST LIPID PANEL REFLEX Routine 04/16/2014 10 :41 AM EST Dyslipidemia THYROID STIMULATING HORMONE Routine 04/16/2014 10:41 AM EST Male erectile disorder T4, FREE (THYROXINE) Routine 04/16/2014 10:41 AM EST Male erectile disorder TESTOSTERONE LEVEL TOTAL Routine 04/16/2014 10:41 AM EST Male erectile disorder HEMOGLOBIN A1C Routine 04/16/2014 10:41 AM EST Diabetes mellitus type 2, uncontrolled (HCC) COMPREHENSIVE METABOLIC PANEL Routine 04/16/2014 10:41 AM EST Diabetes mellitus type 2, uncontrolled (HCC) documented in this encounter Results * (ABNORMAL) MICROALBUMIN/CREATININE RATIO URINE (04/16/2014 10:45 AM EST) Urine Microalb 65.0 mg/L [facility] Urine Creatinine 79.5 mg/dL [facility] Ur Microalb/Creat 82(H) 0 - 20 mg/gm [facility] Urine specimen (specimen) 04/16/2014 10:45 AM EST 04/16/2014 4:35 PM EST us Fili Sanchez MD URINE ORDERABLES Edited Result - Final Performing Organization Address [facility] Phone Number [facility] [address] [place] [address] * LDL, CALCULATED (04/16/2014 10:41 AM EST) LDL Calculated 55 <=100 mg/dL [facility] Comment: ??< 100 ?Optimal 100 - 129 ? Near or above optimal 130 - 159 ? Borderline High 160 - 189 ? High >= 190 ?Very High Blood specimen (specimen) 04/16/2014 10:41 AM EST 04/16/2014 1:57 PM EST Fili Sanchez MD CHEMISTRY ORDERABLES Fin al Result Performing Organization Address [facility] Phone Number [facility] [address] [place] [address] * THYROID STIMULATING HORMONE (04/16/2014 10:41 AM EST) [facility] TSH 1.180 0.270 - 4.200 mcIU/mL [facility] Blood specimen (specimen) UPPER LIMB STRUCTURE / Unknown 04/16/2014 10:41 AM EST 04/16/2014 1:57 PM EST Narrative [facility] - 04/16/2014 4:15 PM EST Before the next appointment. Fili Sanchez MD CHEMISTRY ORDERABLES Fin al Result Performing Organization Address [facility] de Phone Number [facility] [address] [place] [address] * TESTOSTERONE LEVEL TOTAL (04/16/2014 10:41 AM EST) Pathologist [facility] Testosterone Lvl 300 193 - 740 ng/dL [facility] Comment: Values less than 12 ng/dL are not reliable as the intermediate precision coefficient of variation is > 20%. Blood specimen (specimen) UPPER LIMB STRUCTURE / Unknown 04/16/2014 10:41 AM EST 04/16/2014 1:58 PM EST Fili Sanchez MD CHEMISTRY ORDERABLES Fin al Result Performing Organization Address [facility] de Phone Number [facility] [address] [place] [address] * T4, FREE (THYROXINE) (04/16/2014 10:41 AM EST) Free T4 1.27 0.93 - 1.70 ng/dL [facility] Blood specimen (specimen) UPPER LIMB STRUCTURE / Unknown 04/16/2014 10:41 AM EST 04/16/2014 1:57 PM EST Fili Sanchez MD CHEMISTRY ORDERABLES Fin al Result Performing Organization Address [facility] de Phone Number [facility] [address] [place] [address] * LIPID PANEL REFLEX (04/16/2014 10:41 AM EST) Pathologist [facility] Cholesterol 126 <=200 mg/dL [facility] Comment: < 200 ?Desirable 200 - 239 ? Borderline High >= 240 ?High Triglyceride 51 <=150 mg/dL [facility] Comment: < 150 ? Normal 150 - 199 ?Borderline High 200 - 499 ?High ??>= 500 ? Very High HDL 61 >=40 mg/dL [facility] Comment: ?? > 60 ?Optimal 40 - 60 ?Acceptable ?? < 40 ?Low Blood specimen (specimen) UPPER LIMB STRUCTURE / Unknown 04/16/2014 10:41 AM EST 04/16/2014 1:57 PM EST us Fili Sanchez MD CHEMISTRY ORDERABLES Fred duglas Result - Final Performing Organization Address [facility] de Phone Number [facility] [address] [place] [address] * (ABNORMAL) HEMOGLOBIN A1C (04/16/2014 10:41 AM EST) Hgb A1c 7.4(H) <=7.0 % [facility] Comment: Initial Diagnostic Criteria < 5.7 % ?Normal 5.7 - 6.4 % ? At risk for diabetes mellitus >= 6.5 % ?Consistent with diabetes mellitus Diabetes monitoring Target Value (ADA recommended): ?< 7 % Blood specimen (specimen) UPPER LIMB STRUCTURE / Unknown 04/16/2014 10:41 AM EST 04/16/2014 1:58 PM EST Fili Sanchez MD CHEMISTRY ORDERABLES Fin al Result [facility] [address] [place] [address] * (ABNORMAL) COMPREHENSIVE METABOLIC PANEL (04/16/2014 10:41 AM EST) Pathologist [facility] Sodium 140 136 - 145 mmol/L [facility] Potassium 4.3 3.5 - 5.0 mmol/L [facility] Chloride 99 98 - 107 mmol/L [facility] Total CO2 27 22 - 29 mmol/L [facility] Anion Gap 14 7 - 16 mmol/L [facility] Calcium 10.4(H) 8.8 - 10.2 mg/dL [facility] Glucose Lvl 79(L) 82 - 100 mg/dL [facility] BUN 12 8 - 23 mg/dL [facility] Creatinine 0.89 0.67 - 1.30 mg/dL [facility] Albumin 4.4 3.2 - 4.6 gm/dL [facility] Total Protein 7.8 6.4 - 8.3 gm/dL [facility] Bili Total 0.3 0.1 - 1.4 mg/dL [facility] AST 27 <=40 IU/L [facility] ALT 28 <=41 IU/L [facility] Alk Phos 68 40 - 129 IU/L [facility] GFR Afr Am >60 [facility] Comment: GFR is estimated using creatinine, age, gender, and race. ??GFR has been validated for patients between 18 and 70 years of age. GFR has not been validated for women, patients with serious comorbid conditions, or persons with extremes of body size, muscle mass, or nutritional status. ??For additional information: ??www.kidney.org. GFR Non Afr Am >60 [facility] Blood specimen (specimen) UPPER LIMB STRUCTURE / Unknown 04/16/2014 10:41 AM EST 04/16/2014 1:57 PM EST Fili Sanchez MD CHEMISTRY ORDERABLES Fred duglas Result - Final [facility] [address] [place] [address] documented in this encounter Visit Diagnoses Diagnosis Diabetes mellitus type 2, uncontrolled Type II or unspecified type diabetes mellitus without mention of complication, uncontrolled Dyslipidemia Other and unspecified hyperlipidemia Male erectile disorder Impotence of organic origin documented in this encounter Care Teams Industrial Custodian Relationship Specialty Start Date End Date Fili Sanchez MD [address] [phone] Internal Medicine-Endocrinology, Diabetes & Metabolism 04/11/14 documented as of this encounter
--- OUTSIDE RECORDS SUMMARY | 2024-01-18 15:01 | XMS_ITS | Encounter Summary ---
Author Organization [place] [address] Care Team Providers Care Spring Former Hand Name Role Phone Fili Sanchez MD Unavailable [phone] Encounter Details Date Type Department Care Team (Latest Contact Info) Description 04/29/2014 11:20 AM EDT - 04/29/2014 11:59 PM EDT Hospital Encounter [facility] [address] [place] [address] Male erectile disorder; Screening PSA (prostate specific antigen); Diabetes mellitus type 2, uncontrolled (HCC) Discharge Disposition: Home or Self Care [...] Visit [facility] Nephrology [address] [place] [address] Julio Silva MD [address] [place] [address] Scheduled Orders Name Type Priority Associated Diagnoses Orde r Schedule OP VENIPUNCTURE CHARGE Lab Timed Male erectile disorder Screening PSA (prostate specific antigen) Diabetes mellitus type 2, uncontrolled (HCC) One Time for 1 Occurrences starting 04/29/2014 until 04/29/2014 documented as of this encounter Procedures Procedure Name Priority Date/Time Associated Diagnosis Comments PROSTATE SPECIFIC ANTIGEN (SCREENING) Routine 04/29/2014 11:26 AM EDT Male erectile disorder Screening PSA (prostate specific antigen) Diabetes mellitus type 2, uncontrolled (HCC) documented in this encounter Results * PROSTATE SPECIFIC ANTIGEN (SCREENING) (04/29/2014 11:26 AM EDT) Total PSA 1.04 ng/mL [facility] Comment: 2009 AUA Best Practice Statement Guidelines-Age Adjusted Reference Intervals: Age Range ? Whites ?Americans ? Americans 40-49 years ? 0-2.5 ng/mL ? 0-2.0 ng/mL ? 0-2.0 ng/mL 50-59 years ? 0-3.5 ng/mL ? 0-4.0 ng/mL ? 0-3.0 ng/mL 60-69 years ? 0-4.5 ng/mL ? 0-4.5 ng/mL ? 0-4.0 ng/mL 70-79 years ? 0-6.5 ng/mL ? 0-5.5 ng/mL ? 0-5.0 ng/mL [facility] Laboratory uses the [employer] [...] Elizondo MD CHEMISTRY ORDERABLES Final R esult Performing Organization Address City/State/[facility] Co de Phone Number [facility] [address] [place] [address] documented in this encounter Visit Diagnoses Diagnosis Male erectile disorder Impotence of organic origin Screening PSA (prostate specific antigen) Special screening for malignant neoplasm of prostate Diabetes mellitus type 2, uncontrolled Type II or unspecified type diabetes mellitus without mention of complication, uncontrolled documented in this encounter Care Teams Spring Former Hand Relationship Specialty Start Date End Date Fili Sanchez MD [address] [address] Internal Medicine-Endocrinology, Diabetes & Metabolism 04/11/14 documented as of this encounter
--- OUTSIDE RECORDS SUMMARY | 2024-01-18 15:01 | XMS_ITS | Encounter Summary ---
Author Organization [place] [address] Care Team Providers Care Field Observer Name Role Phone Fili Burdick MD Unavailable [phone] Reason for Referral * Consultation (Routine) - Closed Specialty Diagnoses / Procedures Referred By Kadie casillas Referred To Contact Urology Diagnoses Male erectile disorder Fili Burdick MD [address] [address] Phone: tel: fax: Referral ID Status Reason Start Date Expiration Date Visits Re quested Visits Authorized [id number] Closed 04/22/2014 04/22/2015 1 1 Reason for Visit * Reason Onset Date Comments Referral 04/22/2014 Encounter Details Date Type Department Care Team (Late st Contact Info) Description 04/22/2014 Telephone [facility] [address] [address] Fili Burdick MD [address] [place] [address] [address] Referral Social History Tobacco Use Types Packs/Day Years [...] encounter Miscellaneous Notes * Telephone Encounter - Guerline Tinoco - 05/02/2014 10:54 AM EDT Referral and medical records faxed to Urology at fax number [phone]. * Telephone Encounter - Julia Redd LPN - 04/22/2014 8:53 AM EDT Per - place referral to Urology. Order placed. Will forward to OP scheduling to get the process started. Patient aware the referral placed. * Telephone Encounter - Julia Redd LPN - 04/22/2014 8:52 AM EDT Regarding: Non-Urgent Medical Question Contact: ----- Message from Fili Burdick MD sent at 04/19/2014 2:24 PM EST ----- ----- Message from Amanda Ray to Fili Burdick MD sent at 04/18/2014 3:26 PM ----- Was wondering about the e.d. problem and what I can do about it or do I need to see a another doctor. IF SO COULD DR BURDICK REFER ME TO ONE. THANK YOU AMANDA RAY. documented in this encounter Plan of Treatment Upcoming Encounters Date Type Department Care Team (Late st Contact Info) Description 04/26/2024 9:00 AM EDT Office Visit [facility] Nephrology [place] [address] [place] [address] Julio Silva MD [address] [place], [place] [id number] Scheduled Referrals Name Type Priority Associated Diagnoses Orde r Schedule AMB REFERRAL TO UROLOGY Outpatient Referral Routine Male erectile disorder Expected: 04/22/2014, Expires: 04/23/2015 documented as of this encounter Visit Diagnoses Diagnosis Male erectile disorder- Primary Impotence of organic origin documented in this encounter Care Teams Field Observer Relationship Specialty Start Date End Date Fili Burdick MD [address] [facility] [address] [place] [phone] Internal Medicine-Endocrinology, Diabetes & Metabolism 04/11/14 documented as of this encounter
[2024-01-18 15:41] LABS: Adenovirus,PCR Not Detected (NotDetected); Bordetella Pertussis Not Detected (NotDetected); Chlamydophila Pneumoniae, PCR Not Detected (NotDetected); Coronavirus 19, PCR Not Detected (NotDetected); Coronavirus 229E Not Detected (NotDetected); Coronavirus NL63 Not Detected (NotDetected); Coronavirus OC43 Not Detected (NotDetected); Coronovirus HKU1,PCR Not Detected (NotDetected); Human Metapneumovirus Not Detected (NotDetected); Influenza A, PCR Not Detected (NotDetected); Influenza AH1, 2009 Not Detected (NotDetected); Influenza AH1, PCR Not Detected (NotDetected); Influenza AH3,PCR Not Detected (NotDetected); Influenza B, PCR Not Detected (NotDetected); Mycoplasma Pneumoniae, PCR Not Detected (NotDetected); Parainfluenza 1, PCR Not Detected (NotDetected); Parainfluenza 2, PCR Not Detected (NotDetected); Parainfluenza 3, PCR Not Detected (NotDetected); Parainfluenza 4, PCR Not Detected (NotDetected); Respiratory Syncytial Virus Not Detected (NotDetected); Rhinovirus/Enterovirus Not Detected (NotDetected)
== END 2024-01-18 23:59 | disposition home or self-care (01) ==
LOC: LAB 14:46
PROVIDERS: PCP Family Medicine; Visit Provider Physician Assistant
DX: R09.89 Other specified symptoms and signs involving the circulatory and respiratory systems (principal); R07.89 Other chest pain; M54.6 Pain in thoracic spine; M25.511 Pain in right shoulder
CPT/HCPCS: 71046; 72072; 73030; 87633

== ENCOUNTER 2024-02-02 11:53 | Outpatient (CLI) | payer MEDICARE, SELFPAY ==
--- NOTE | 2024-02-02 11:57 | XR_ITS ---
FINAL REPORT CLINICAL HISTORY: CLOSED FRACTURE OF MULTIPE RIBS OF RIGHT WITH HEALING COMPARISON: Thoracic x-ray 8 01/18/2024 FINDINGS: 3 views of the right ribs were obtained. There are mildly displaced fractures of the right lateral 3rd through 6th ribs, best seen on the oblique views. Mild callus formation is noted. The visualized lungs are clear. There is no significant pleural effusion. No pneumothorax is identified. IMPRESSION: Healing mildly displaced upper right rib fractures. Reviewed, Interpreted and Dictated by Alondra De Los Santos MD Transcribed by Susi Diana Authenticated and [facility]
== END 2024-02-02 23:59 | disposition home or self-care (01) ==
LOC: RAD 11:54
PROVIDERS: PCP Family Medicine; Visit Provider Physician Assistant
DX: R07.82 Intercostal pain (principal); S22.41XD Multiple fractures of ribs, right side, subsequent encounter for fracture with routine healing
CPT/HCPCS: 71100

== ENCOUNTER 2024-10-26 10:54 | Outpatient (CLI) | payer MEDICARE, SELFPAY ==
--- OUTSIDE RECORDS SUMMARY | 2024-01-25 07:00 | XMS_ITS ---
Author Organization [facility] Address [address] [place] [facility] [address] [id number] Care Team Providers Care Acetylene Torch Operator Name Role Phone Mirta Quan Primary Care Provider Florina Mariah Unavailable [phone] Allergies No Known Allergies Results Component Value Reference Range Notes CBC Fingerstick (in house) Reviewed date:01/25/2024 12:51:01 PM Interpretation: Performing Lab: Notes/Report: wbc 12.9 3.5 - 10 lym 58.3 15 - 50 mid 5.9 2 - 15 gran 35.8 35 - 80 rbc 4.31 3.5 - 5.5 hgb 14.8 11.5 - 16.5 hct 43.7 35 - 55 mcv 101.4 75 - 100 mch 34.3 25 - 35 mchc 33.8 31 - 38 plat 194 100 - 400 REASON FOR VISIT f/u on rib fracture Medications Medication SIG (Take, Route, Frequency, Duration) Notes Start Date End Date Status Allopurinol 100 MG 1 tablet Orally Once a day; Duration: 90 days Active Escitalopram Oxalate 20 MG TAKE 1 TABLET BY MOUTH EVERY DAY FOR 90 DAYS; Duration: 90 days Not-Taking Rosuvastatin Calcium 40 MG 1 tablet Orally Once a day Active Spironolactone 25 MG 1 tab(s) orally onc e a day Active Basaglar KwikPen 100 UNIT/ML 24 units qd subcutaneously once daily Active Jardiance 25 MG 1 tab(s) orally once a day (in the morning) Active Entresto 24-26 MG 1 tab(s) Orally 2 ti mes a day Active glipiZIDE 5 MG 3 tab(s) orally once a day Active Carvedilol 25 MG 1 tab(s) Orally 2 ti mes a day Active Torsemide 10 MG 1 tablet orally once a prn Active Aspirin 81 MG 1 tab(s) orally once a day Active Magnesium Oxide 400 MG 1 tab(s) orally 2 times a day Active Nitroglycerin 0.4 MG/SPRAY 1 spray(s) sublingually every 5 minutes Active rOPINIRole HCl 0.5 MG 1 tablet 1 to 3 ho urs before bedtime Orally at bedtime Active Albuterol Sulfate HFA 108 (90 Base) MCG/ACT 1 puff as needed Inhalation every 4 hrs, prn Active Cefdinir 300 MG 1 cap(s) Orally Two times a day; Duration: 7 days 01/25/2024 Active Spirometer - as directed 01/25/2024 Acti ve Ozempic (1 MG/DOSE) 2 MG/1.5ML as directed Subcutaneous Act anthony Nexletol 180 MG 1 tablet Orally Once a day; Duration: 30 day(s) Active Zithromax Z-Da 250 MG 2 pills first day then one daily for 4 days orally as directed Active Social History Tobacco Use: Social History Observation Description Date Smoking Status WARNING: Information temporarily unavailable CURRENT TOBACCO USE: Question Answer Notes Are you a: Stopped 08/14/2016 Vital Signs Weight 268.0 lbs 01/25/2024 Blood pressure systolic 80 mm Hg 01/25/20 24 Blood pressure diastolic 50 mm Hg 024 Heart Rate 70 /min 01/25/2024 Height 75 in 01/25/2024 BMI 33.49 kg/m2 01/25/2024 Encounters Encounter Location Date Provider Diagnosis [facility] [address] [facility] [address] [place], [place] [id number] 01/25/2024 Mariah Crowdy Wheezing R06.2 ; Anum sed fracture of multiple ribs of right side with routine healing, subsequent encounter S22.41XD ; Bilateral rales R09.89 and Hypotension, unspecified hypotension type I95.9 Assessments Encounter Date Diagnosis (ICD Code) Assessment Notes Treatment Notes Treatment Clinical Notes Section Notes 01/25/2024 Wheezing (ICD-10 - R06.2) WBC has improved but is still abnormal. Will add cefdinir. 01/25/2024 Closed fracture of multiple ribs of right side with routine healing, subsequent encounter (ICD-10 - S22.41XD) Will repeat x-ray next week. 01/25/2024 Bilateral rales (ICD-10 - R09.89) Improving. 01/25/2024 Hypotension, unspecified hypotension type (ICD-10 - I95.9) Will go back to taking the torsemide MWF rather than daily. Will monitor BP. Plan Of Treatment Medication Medication Name Sig Start Date Stop Date Notes Albuterol Sulfate HFA 108 (9 0 Base) MCG/ACT 1 puff as needed Inhalation every 4 hrs, prn Cefdinir 300 MG 1 cap(s) Orally Two times a day; Duration: 7 days 01/25/2024 Spirometer - as directed 01/25/2024 Zithromax Z-Da 250 MG 2 pills first day then one daily for 4 days orally as directed Treatment Notes Assessment Notes Wheezing WBC has improved but is still abnormal. Will add cefdinir. Closed fracture of multiple ribs of right side with routine healing, subsequent encounter Will repeat x-ray next week. Bilateral rales Improving. Hypotension, unspecified hypotension typ e Will go back to taking the torsemide MWF rather than daily. Will monitor BP. Next Appt Details Follow Up: next , Re ason: Progress Notes * AMANDA PELLETIERDOB: [birth year] (74 yo M)Acc No.[id number]:01/25/2024 Progress Notes Patient: AMANDA BOSTON Provider: JERALD Iniguez :1950 A ge:73 Y S ex:Male Date:01/25/2024 Address:[address] [id number] Pcp:Mirta Quan Subjective: * Chief Complaints: * 1 . F/u on rib fracture. * HPI: C hest: 73 year old male presents with c/o Direct Trauma P t presents today for a follow up on rib fractures. H PI: Pt had labs drawn at his last office visit w/ Dr. Quan and wanted results. K nee/Osborne: knee pain P t will be getting a gel injection in the knee tomorrow. Pt is due to have a knee surgery but that has been postponed until his ribs heal. * ROS: D ERMATOLOGY: no R eder. n o H gino. G ASTROENTEROLOGY: no N ausea. n o V omiting. n o D iarrhea.? U ROLOGY: no D ifficulty urinating. n o B lood in urine. * Medical History: H ypertension, Type 2 Diabetes, [facility], Congestive Heart Failure, EF 15% in 2016, [facility], Cardiac Defibrillator, 11/2016, EF 20-25% [facility] 06/16/2016, EF 15% at [facility] 12/15/2017, Gout, 60 Year Smoking Hx, Quit 2016, CAD- [facility]. * Surgical History: D efibrillator Placement 12/2016, Colonoscopy 2017. * Family History: F ather: , diagnosed with Diabetes. M other: , diagnosed with Heart Disease. 3 brother(s) , 1 sister(s) - healthy. 1 son(s) , 2 daughter(s) - healthy. . Sister-. * Social History: C URRENT TOBACCO USE: No A re you a: Stopped 08/14/2016. C affeine: yes, frequency:. Exercise: yes. Home smoke detector use: yes. Marital Status: Single. Recreational drug use: no, Past use:. Alcohol: Yes, Type: beer , Frequency: ,Years: , Determination:. Sexually active: yes. * Medications: T aking Ozempic (1 MG/DOSE) 2 MG/1.5ML Solution Pen-injector as directed Subcutaneous , Taking Nexletol 180 MG Tablet 1 tablet Orally Once a day , Taking rOPINIRole HCl 0.5 MG Tablet 1 tablet 1 to 3 hours before bedtime Orally at bedtime , Taking Aspirin 81 MG Tablet Delayed Release 1 tab(s) orally once a day , Taking Torsemide 10 MG Tablet 1 tablet orally once a prn , Taking Magnesium Oxide 400 MG Tablet 1 tab(s) orally 2 times a day , Taking Nitroglycerin 0.4 MG/SPRAY Solution 1 spray(s) sublingually every 5 minutes , Taking Basaglar KwikPen 100 UNIT/ML Solution Pen-injector 24 units qd subcutaneously once daily , Taking Entresto 24-26 MG Tablet 1 tab(s) Orally 2 times a day , Taking Jardiance 25 MG Tablet 1 tab(s) orally once a day (in the morning) , Taking Carvedilol 25 MG Tablet 1 tab(s) Orally 2 times a day , Taking glipiZIDE 5 MG Tablet 3 tab(s) orally once a day , Taking Spironolactone 25 MG Tablet 1 tab(s) orally once a day , Taking Rosuvastatin Calcium 40 MG Tablet 1 tablet Orally Once a day , Taking Allopurinol 100 MG Tablet 1 tablet Orally Once a day , Taking Albuterol Sulfate HFA 108 (90 Base) MCG/ACT Aerosol Solution 1 puff as needed Inhalation every 4 hrs, prn , Not-Taking Escitalopram Oxalate 20 MG Tablet TAKE 1 TABLET BY MOUTH EVERY DAY FOR 90 DAYS , Discontinued Zithromax Z-Da 250 MG Tablet 2 pills first day then one daily for 4 days orally as directed , Medication List reviewed and reconciled with the patient * Allergies: N .K.D.A. Objective: * Vitals: W t:268.0, Temp:97.7, BP:80/50, HR:70, O2 Sat:96% on RA, Nurse:BUNNY, Ht: 75, BMI:33.49. * Examination: G eneral Examination: General Appearance: N AD. H EENT: u nremarkable.?Oral cavity: n o lesions, mucosa moist and WNL, no erythema. N cullen: s upple, no lymphadenopathy. C hest: n ormal shape and expansion, ttp along the right chest wall. H eart: R SR. L ungs: b ibasilar rales. A bdomen: bowel sounds present, soft, nontender. N eurologic Exam: I ntact, gait normal. S kin: n ormal, no rash. P eripheral pulses: normal (2+) bilaterally. E xtremities: no leg edema. ? Assessment: * Assessment: 1. C losed fracture of multiple ribs of right side with routine healing, subsequent encounter - S22.41XD (Primary) 2 . W heezing - R06.2 3 . B ilateral rales - R09.89 4 . H ypotension, unspecified hypotension type - I95.9 ? Plan: * Treatment: 2. W heezing Finish Zithromax Z-Da Tablet, 250 MG, 2 pills first day then one daily for 4 days, orally, as directed; C ontinue Albuterol Sulfate HFA Aerosol Solution, 108 (90 Base) MCG/ACT, 1 puff as needed, Inhalation, every 4 hrs, prn; S tart Cefdinir Capsule, 300 MG, 1 cap(s), Orally, Two times a day, 7 days, 14 Capsule, Refills 0. L AB: CBC Fingerstick (in house) (Collection Date & Time - 01/25/2024) Value Reference Range w bc 12.9 3.5 - 10 * l ym 58.3 15 - 50 * m id 5.9 2 - 15 * g ran 35.8 35 - 80 * r bc 4.31 3.5 - 5.5 * h gb 14.8 11.5 - 16.5 * h ct 43.7 35 - 55 * m cv 101.4 75 - 100 * m ch 34.3 25 - 35 * m chc 33.8 31 - 38 * p lat 194 100 - 400 * Margo Nunez 01/25/2024 11: 48:31 AM > results reviewed w/ pt in office Notes: WBC has improved but is still abnormal. Will add cefdinir.??3.?Bilateral rales? Notes: Improving.??4.?Hypotension, unspecified hypotension type? Notes: Will go back to taking the torsemide MWF rather than daily. Will monitor BP.?? * Procedure Codes: 9 4760 PULSE OX, G2211 Complex e/[place], [address] CAPILLARY BLOOD DRAW, 18493 CBC WITH AUTO DIFF * Follow Up: n ext * Images: Billing Information: * Visit Code: 74093 Office Visit, Est Pt., Level 4. * Procedure Codes: 74731 PULSE OX. G2211 Complex e/[place]. [address] CAPILLARY BLOOD DRAW. 70222 CBC WITH AUTO DIFF. * Electronic signature of JERALD Nixon on 10/26/2024 at 11:01 AM EDT Sign off status: Pending * Provider: JERALD Iniguez Date: 1 03/27/2023 Generated for Printi ng/Faxing/eTransmitting on: 0 10/26/2024 11:01 AM EDT History and Physical Notes * HPI (History of Present Illness) Category Sub-Category Detail Notes Category Not es Knee/Osborne knee pain Pt will be getti ng a gel injection in the knee tomorrow. Pt is due to have a knee surgery but that has been postponed until his ribs heal HPI Pt had labs dra malave at his last office visit w/ Dr. Quan and wanted results Chest Trauma Pt presents toda y for a follow up on rib fractures Examination Category Sub-Category Detail Notes Category Not es General Examination HEENT: unremarkable Heart: RSR Lungs: bibasilar rales Abdomen: bowel sounds present , soft, nontender Extremities: no leg edema General Appearance: NAD Skin: normal, no rash Neurologic Exam: Intact, gait normal Neck: supple, no lymphaden opathy Oral cavity: no lesions, mucosa m oist and WNL, no erythema Peripheral pulses: normal (2+) bilatera lly Chest: normal shape and exp ansion, ttp along the right chest wall
--- OUTSIDE RECORDS SUMMARY | 2024-02-02 07:00 | XMS_ITS ---
Author Organization [facility] Address [address] [facility] [address] [place], [place] [id number] Care Team Providers Care Orthopedic Dentist Name Role Phone Mirta Quan Primary Care Provider DeshawnJose Alfredo mooneya Unavailable [phone] Allergies No Known Allergies Results Component Value Reference Range Notes CBC Venipuncture (in house) Reviewed date:02/02/2024 03:12:09 PM Interpretation: Performing Lab: Notes/Report: wbc 11.3 3.5 - 10 lymph 52.3 15 - 50 mid 6.1 2 - 15 gran 41.6 35 - 80 rbc 3.90 3.5 - 5.5 hgb 13.1 11.5 - 16.5 hct 38.9 35 - 55 mcv 99.7 75 - 100 mch 33.6 25 - 35 mchc 33.7 31 - 38 platlet 238 100 - 400 P-Basic Metabolic Panel (BMP ) Reviewed date:02/03/2024 08:33:36 AM Interpretation: Performing Lab: Notes/Report: Test performed by [facility] [address] [place] [address] , [address], [place] [address] Fili Feng MD, Stacking Machine Operator CLIA: [id number] Sodium 139 135-145 mmol/L Potassium 4.6 3.5-5.3 mmol/L Chloride 102 97-108 mmol/L CO2 24 22-32 mmol/L Glucose 188 65-99 mg/dL BUN 26 8-23 mg/dL Creatinine 1.56 0.70-1.30 mg/dL Calcium 9.3 8.6-10.4 mg/dL eGFR by Creatinine 47 >59 mL/min/1.73m2 X ray : ribs right Reviewed date:02/03/2024 08:33:45 AM Interpretation: Performing Lab: Notes/Report: REASON FOR VISIT 1 week Medications Medication SIG (Take, Route, Frequency, Duration) Notes Start Date End Date Status Aspirin 81 MG 1 tab(s) orally once a day Active Spirometer - as directed 01/25/2024 Acti ve Nexletol 180 MG 1 tablet Orally Once a day; Duration: 30 day(s) Active rOPINIRole HCl 0.5 MG 1 tablet 1 to 3 ho urs before bedtime Orally at bedtime Active Ozempic (1 MG/DOSE) 2 MG/1.5ML as directed Subcutaneous Act anthony Allopurinol 100 MG 1 tablet Orally Once a day; Duration: 90 days Active Albuterol Sulfate HFA 108 (90 Base) MCG/ACT 1 puff as needed Inhalation every 4 hrs, prn Active glipiZIDE 5 MG 3 tab(s) orally once a day Active Spironolactone 25 MG 1 tab(s) orally once a day Active Rosuvastatin Calcium 40 MG 1 tablet Orally Once a day Active Nitroglycerin 0.4 MG/SPRAY 1 spray(s) ball blingually every 5 minutes Active Basaglar KwikPen 100 UNIT/ML 24 units qd subcutaneously once daily Active Entresto 24-26 MG 1 tab(s) Orally 2 ti mes a day Active Jardiance 25 MG 1 tab(s) orally once a day (in the morning) Active Carvedilol 25 MG 1 tab(s) Orally 2 ti mes a day Active Torsemide 10 MG 1 tablet orally once a prn Active Magnesium Oxide 400 MG 1 tab(s) orally 2 times a day Active Social History Tobacco Use: Social History Observation Description Date Smoking Status WARNING: Information temporarily unavailable CURRENT TOBACCO USE: Question Answer Notes Are you a: Stopped 08/14/2016 Vital Signs Weight 271.4 lbs 02/02/2024 Blood pressure systolic 110 mm Hg 02/02/20 24 Blood pressure diastolic 60 mm Hg 024 Heart Rate 79 /min 02/02/2024 Height 75 in 02/02/2024 BMI 33.92 kg/m2 02/02/2024 Encounters Encounter Location Date Provider Diagnosis [facility] [address] [facility] [address] RYAN Johnston [id number] 02/02/2024 Mariah Heaton Wheezing R06.2 ; Anum sed fracture of multiple ribs of right side with routine healing, subsequent encounter S22.41XD ; Bilateral rales R09.89 ; Hypotension, unspecified hypotension type I95.9 and Renal insufficiency N28.9 Assessments Encounter Date Diagnosis (ICD Code) Assessment Notes Treatment Notes Treatment Clinical Notes Section Notes 02/02/2024 Wheezing (ICD-10 - R06.2) Resolved. 02/02/2024 Closed fracture of multiple ribs of right side with routine healing, subsequent encounter (ICD-10 - S22.41XD) Will repeat x-ray. 02/02/2024 Bilateral rales (ICD-10 - R09.89) Resolved 02/02/2024 Hypotension, unspecified hypotension type (ICD-10 - I95.9) Improved. 02/02/2024 Renal insufficiency (ICD-10 - N28.9) Plan Of Treatment Treatment Notes Assessment Notes Wheezing Resolved. Closed fracture of multiple ribs of right side with routine healing, subsequent encounter Will repeat x-ray. Bilateral rales Resolved Hypotension, unspecified hypotension typ e Improved. Next Appt Details Follow Up: via phone to repo rt test results, Reason: Progress Notes * AMANDA PELLETIERDOB: [birth year] (74 yo M)Acc No.[id number]:02/02/2024 Progress Notes Patient: AMANDA BOSTON Provider: JERALD Iniguez :1950 A ge:73 Y S ex:Male Date:02/02/2024 Address:[id number] Pcp:Mirta Quan Subjective: * Chief Complaints: * 1 . 1 week. * HPI: H PI: 73 year old male presents with c/o Patient is here today for?Pt is here today for a 1 week f/u r ib fracture. Pt sts he still has some pain but sts it is getting better. * ROS: D ERMATOLOGY: no R eder. n o H gino. G ASTROENTEROLOGY: no N ausea. n o V omiting. n o D iarrhea.? U ROLOGY: no D ifficulty urinating. n o B lood in urine. * Medical History: H ypertension, Type 2 Diabetes, [place], Congestive Heart Failure, EF 15% in 2017, [facility], Cardiac Defibrillator, 11/2016, EF 20-25% [facility] 06/16/2016, EF 15% at [facility] 12/15/2017, Gout, 60 Year Smoking Hx, Quit 2016, CAD- [facility]. * Surgical History: D efibrillator Placement 12/2016, [...] needed Inhalation every 4 hrs, prn , Taking Spirometer - Kit as directed , Medication List reviewed and reconciled with the patient * Allergies: N .K.D.A. Objective: * Vitals: W t:271.4, Temp:97.9, BP:110/60, HR:79, Nurse:GILBERT, Ht: 75, BMI:33.92. * Examination: G eneral Examination: General Appearance: N AD. H EENT: u nremarkable.?Oral cavity: n o lesions, mucosa moist and WNL, no erythema. N cullen: s upple, no lymphadenopathy. C hest: n ormal shape and expansion, ttp along the right chest wall. H eart: R SR. L ungs: clear to auscultation, much better air movement today. E xtremities: no leg edema. Assessment: * Assessment: 1. C losed fracture of multiple ribs of right side with routine healing, subsequent encounter - S22.41XD (Primary) 2 . W heezing - R06.2 3 . B ilateral rales - R09.89 4 . H ypotension, unspecified hypotension type - I95.9 5. R enal insufficiency - N28.9 Plan: * Treatment: Notes: Will repeat x-ray.??2.?Wheezing? Notes: Resolved.??3.?Bilateral rales?LAB: CBC Venipuncture (in house) (Collection Date & Time - 02/02/2024)* Value Reference Range w bc 11.3 3.5 - 10 * l ymph 52.3 15 - 50 * m id 6.1 2 - 15 * g ran 41.6 35 - 80 * r bc 3.90 3.5 - 5.5 * h gb 13.1 11.5 - 16.5 * h ct 38.9 35 - 55 * m cv 99.7 75 - 100 * m ch 33.6 25 - 35 * m chc 33.7 31 - 38 * p latlet 238 100 - 400 * Bonnie Estrada 02/02/2024 11:3 9:05 AM > , Provider reviewed results while patient in office.Mariah Heaton 02/02/2024 3:12:07 PM > Notes: Resolved??4.?Hypotension, unspecified hypotension type? Notes: Improved.??5.?Renal insufficiency?LAB: P-Basic Metabolic Panel (BMP) (Collection Date & Time - 02/02/2024 10:21 AM)* Value Reference Range B UN 26 H 8-23 - mg/dL * C alcium 9.3 8.6-10.4 - mg/dL * C hloride 102 97-108 - mmol/L * C O2 24 22-32 - mmol/L * C reatinine 1.56 H 0.70-1.30 - mg/dL * G lucose 188 H 65-99 - mg/dL * P otassium 4.6 3.5-5.3 - mmol/L * S odium 139 135-145 - mmol/L * e GFR by Creatinine 47 L >59 - mL/min/1.73m2 * FlorinaMariah Greene 02/03/2024 8 :33:34 AM > see TE * Procedure Codes: G 2211 Complex e/[place], [address] CBC WITH AUTO DIFF, 93986 VENIPUNCT, ROUTINE* * Follow Up: v ia phone to report test results * Images: Billing Information: * Visit Code: 52185 Office Visit, Est Pt., Level 3. * Procedure Codes: G2211 Complex e/[place]. [address] CBC WITH AUTO DIFF. 23139 VENIPUNCT, ROUTINE*. * Electronic signature of JERALD Nixon on 10/26/2024 at 10:58 AM EDT Sign off status: Pending * Provider: JERALD Iniguez Date: 1 04/04/2023 Generated for Marleen galicia/Dveyn/eTransmitting on: 0 10/26/2024 10:58 AM EDT History and Physical Notes * HPI (History of Present Illness) Category Sub-Category Detail Notes Category Not es HPI Patient is here today for Pt is here today for a 1 week f/u rib fracture. Pt sts he still has some pain but sts it is getting better Examination Category Sub-Category Detail Notes Category Not es General Examination HEENT: unremarkable Heart: RSR Lungs: clear to auscultatio n, much better air movement today Extremities: no leg edema General Appearance: NAD Neck: supple, no lymphaden opathy Oral cavity: no lesions, mucosa m oist and WNL, no erythema Chest: normal shape and exp ansion, ttp along the right chest wall
--- OUTSIDE RECORDS SUMMARY | 2024-03-05 09:15 | XMS_ITS ---
Author Organization [facility] Address [address] [facility] [address] [phone] Care Team Providers Care Technical Project Manager Name Role Phone Mirta Quan Primary Care Provider Allergies No Known Allergies REASON FOR VISIT 2 month, Needs labs with PSA, low dose chest CT, AAA screening, diabetic eye exam, & flu vaccine Medications Medication SIG (Take, Route, Frequency, Duration) Notes Start Date End Date Status Torsemide 10 MG 1 tablet orally once a prn Active Entresto 24-26 MG 1 tab(s) Orally 2 ti mes a day Active Basaglar KwikPen 100 UNIT/ML 24 units qd subcutaneously once daily Active Nitroglycerin 0.4 MG/SPRAY 1 spray(s) ball blingually every 5 minutes Active Magnesium Oxide 400 MG 1 tab(s) orally 2 times a day Active Aspirin 81 MG 1 tab(s) orally once a day Active rOPINIRole HCl 0.5 MG 1 tablet 1 to 3 ho urs before bedtime Orally at bedtime Active Nexletol 180 MG 1 tablet Orally Once a day; Duration: 30 day(s) Active Ozempic (2 MG/DOSE) 8 MG/3ML as directed Subcutaneous Act anthony Spirometer - as directed 01/25/2024 Acti ve Albuterol Sulfate HFA 108 (90 Base) MCG/ACT 1 puff as needed Inhalation every 4 hrs, prn Active Allopurinol 100 MG 1 tablet Orally Once a day; Duration: 90 days Active Rosuvastatin Calcium 40 MG 1 tablet Orally Once a day Active Spironolactone 25 MG 1 tab(s) orally once a day Active glipiZIDE 5 MG 2 orally Two times a day Active Carvedilol 25 MG 1 tab(s) Orally 2 ti mes a day Active Jardiance 25 MG 1 tab(s) orally once a day (in the morning) Active Social History Tobacco Use: Social History Observation Description Date Smoking Status WARNING: Information temporarily unavailable CURRENT TOBACCO USE: Question Answer Notes Are you a: Stopped 08/14/2016 Vital Signs Weight 276.1 lbs 03/05/2024 Blood pressure systolic 102 mm Hg 03/05/19 25 Blood pressure diastolic 68 mm Hg 025 Heart Rate 75 /min 03/05/2024 Height 75 in 03/05/2024 BMI 34.51 kg/m2 03/05/2024 Encounters Encounter Location Date Provider Diagnosis [facility] [address] [place] [phone] 03/05/2024 Mirta Quan Type 2 diabetes with complication E11.8 ; Systolic CHF, chronic I50.22 ; Mixed hyperlipidemia E78.2 and Stage 3a chronic kidney disease N18.31 Assessments Encounter Date Diagnosis (ICD Code) Assessment Notes Treatment Notes Treatment Clinical Notes Section Notes 03/05/2024 Type 2 diabetes with complication (ICD-10 - E11.8) Sees nephrology next month, Dr. Silva 03/05/2024 Systolic CHF, chronic (ICD-10 - I50.22) 03/05/2024 Mixed hyperlipidemia (ICD-10 - E78.2) 03/05/2024 Stage 3a chronic kidney disease (ICD-10 - N18.31) Plan Of Treatment Treatment Notes Assessment Notes Type 2 diabetes with complication Sees n ephrology next month, Dr. Silva Next Appt Details Follow Up: 3 Months, Reason: Progress Notes * AMANDA PELLETIERDOB: [birth year] (74 yo M)Acc No.[id number]:03/05/2024 Progress Notes Patient: AMANDA BOSTON Provider: Mirta Quan M.D. :1950 A ge:73 Y S ex:Male Date:03/05/2024 [id number] Subjective: * Chief Complaints: * 1 . 2 month. 2. Needs labs with PSA, low dose chest CT, AAA screening, diabetic eye exam, & flu vaccine. * HPI: C ardiology: The patient is here for a check up. Pt states he saw Cardiology at [facility] last week and got a good report. See pt docs. Pt states he saw Orthopedics in [facility] for his knees and got an injection in the right knee. Pt states that helped and the right knee is doing good. Pt states he is having pain in the left knee and rates the pain a 2/10. Pt is not fasting. Pt states he had his labs done at [facility]. See Pt docs. Echo showed improvement to 38% EF. Pt states his last A1C was 8.8% in January. [facility] showed BUN=20, creat=1.35, GFR=56. Denies : Chest Pain. D enies : Short of Breath. D enies : Dizziness. D enies : Palpitations. * ROS: D ERMATOLOGY: no R eder. n o H gino. G ASTROENTEROLOGY: no N ausea. n o V omiting. n o D iarrhea.? U ROLOGY: no D ifficulty urinating. n o B lood in urine. * Medical History: H ypertension, Type 2 Diabetes, [facility], Congestive Heart Failure, EF 15% in 2017, [facility], Cardiac Defibrillator, 11/2016, EF 20-25% [facility] 06/16/2016, EF 15% at [facility] 12/15/2017, Gout, 60 Year Smoking Hx, Quit 2016, CAD- [facility], EF=38% 03/02/23 [facility]. * Surgical History: D efibrillator Placement [...] active: yes. * Medications: T aking Ozempic (2 MG/DOSE) 8 MG/3ML Solution Pen-injector as directed Subcutaneous , Taking [...] day , Taking glipiZIDE 5 MG Tablet 2 orally Two times a day , Taking Spironolactone 25 MG [...] Allergies: N .K.D.A. Objective: * Vitals: W t:276.1, Temp:98.0, BP:102/68, HR:75, O2 Sat:97% on Ra, Nurse:HARRIETT, Ht: 75, BMI:34.51. * Examination: G eneral Examination: General Appearance: N AD. H EENT: u nremarkable.?Oral cavity: n o lesions, mucosa moist and WNL, no erythema. N cullen: s upple, no lymphadenopathy. C hest: n ormal shape and expansion. H eart: R SR, S4. L ungs: c lear to auscultation. A bdomen: soft and nontender. N eurologic Exam: I ntact, gait improved. S kin: n ormal, no rash. P eripheral pulses: n ormal . E xtremities: M inimal leg edema. Assessment: * Assessment: 1. T ype 2 diabetes with complication - E11.8 (Primary) 2 . S ystolic CHF, chronic - I50.22 3 . M ixed hyperlipidemia - E78.2 4 . S tage 3a chronic kidney disease - N18.31 Plan: * Treatment: * Procedure Codes: 9 4760 PULSE OX, G2211 Complex e/m visit add on * Follow Up: 3 Months * Images: Billing Information: * Visit Code: 80123 Office Visit, Est Pt., Level 4. * Procedure Codes: 75528 PULSE OX. G2211 Complex e/m visit add on. * Electronic signature of Mirta Quan MD on 10/26/2024 at 10:59 AM EDT Sign off status: Pending * Provider: Mirta Quan M.D. Date: 0 03/05/2024 Generated for Marleen galicia/Devyn/eTransmitting on: 0 10/26/2024 10:59 AM EDT History and Physical Notes * HPI (History of Present Illness) Category Sub-Category Detail Notes Category Not es Cardiology Short of Breath Chest Pain Palpitations Dizziness Examination Category Sub-Category Detail Notes Category Not es General Examination HEENT: unremarkable Heart: RSR, S4 Lungs: clear to auscultatio n Abdomen: soft and nontender Extremities: Minimal leg edema General Appearance: NAD Skin: normal, no rash Neurologic Exam: Intact, gait improve d Neck: supple, no lymphaden opathy Oral cavity: no lesions, mucosa m oist and WNL, no erythema Peripheral pulses: normal Chest: normal shape and exp ansion
--- OUTSIDE RECORDS SUMMARY | 2024-06-04 06:15 | XMS_ITS ---
Author Organization [facility] Address [address] [facility] 36 [facility] [address] [place] [phone] Care Team Providers Care Marketing Manager Health Communications Name Role Phone Mirta Quan Primary Care Provider Allergies No Known Allergies REASON FOR VISIT 3 month ckup, Needs labs with PSA, low dose chest CT, AAA screening, & diabetic eye exam Social History Tobacco Use: Social History Observation Description Date Smoking Status WARNING: Information temporarily unavailable CURRENT TOBACCO USE: Question Answer Notes Are you a: Stopped 08/14/2016 Encounters Encounter Location Date Provider Diagnosis [facility] [address] [facility] [address] [place] [phone] 06/04/2024 Mirta Quan Plan Of Treatment No Information Progress Notes * AMANDA PELLETIERDOB: [birth year] (74 yo M)Acc No.[id number]:06/04/2024 Progress Notes Patient: AMANDA BOSTON Provider: Mirta Quan M.D. :1950 A ge:73 Y S ex:Male Date:06/04/2024 Address:[place] [address] [id number] Subjective: * Chief Complaints: * 1 . 3 month ckup. 2. Needs labs with PSA, low dose chest CT, AAA screening, & diabetic eye exam. * ROS: D ERMATOLOGY: no R eder. n o H gino. G ASTROENTEROLOGY: no N ausea. n o V omiting. n o D iarrhea.? U ROLOGY: no D ifficulty urinating. n o B lood in urine. * Medical History: H ypertension, Type 2 Diabetes, [facility], Congestive Heart Failure, EF 15% in 2017, [facility], Cardiac Defibrillator, 11/2016, EF 20-25% [facility] 06/16/2016, EF 15% at [facility] 12/15/2017, Gout, 60 Year Smoking Hx, Quit 2016, CAD- [facility], EF=38% 03/02/23 [facility]. * Surgical History: D efibrillator [...] ,Years: , Determination:. Sexually active: yes. * Allergies: N .K.D.A. Objective: * Vitals: Assessment: Plan: * Treatment: * Images: Billing Information: * Visit Code: * Procedure Codes: * Electronic signature of Mirta Quan MD on 10/26/2024 at 10:58 AM EDT Sign off status: Pending * Provider: Mirta Quan M.D. Date: 0 06/04/2024 Generated for Marleen galicia/Devyn/Karenitting on: 0 10/26/2024 10:58 AM EDT
--- OUTSIDE RECORDS SUMMARY | 2024-10-01 12:35 | XMS_ITS | Encounter Summary ---
Author Organization [place] [address] Care Team Providers Care Public Relations Director Name Role Phone Fili Sanchez MD Unavailable [phone] Aba Espinoza MD Primary Care Provider [phone] Julio Silva MD Unavailable Encounter Details Date Type Department Care Team (Latest Contact Info) Description 10/01/2024 12:35 PM EDT - 10/01/2024 11:59 PM EDT Hospital Encounter [facility] [address] [place] [id number] Stage 3b chronic kidney disease (HCC); HTN (hypertension), benign; [...] Blood Sugar Diagnostic (ACCU-CHEK GUIDE TEST STRIPS) [facility] Strip Use to test blood sugars daily. 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 DME 6 Each 3 07/04/2024 carvediloL (COREG) 25 mg Oral Tablet Take 25 mg by mouth 2 times daily. cyanocobalamin 1,000 mcg Oral Tablet Take 1 Tablet by mouth daily. Take one tab daily 02/25/2023 empagliflozin (JARDIANCE) 25 mg Oral TabletIndicatio ns:Type 2 diabetes mellitus with hyperglycemia, with long-term current use of insulin ([facility]) Take 1 Tablet by mouth daily. 90 Tablet 3 10/31/2023 ergocalciferol (VITAMIN D) 1,250 mcg (50,000 unit) Oral CapsuleIndicati ons:Type 2 diabetes mellitus with microalbuminuri a, with long-term current use of insulin (HCC) TAKE 1 CAPSULE BY MOUTH ONCE WEEKLY 13 Capsule 1 06/04/2024 escitalopram oxalate (LEXAPRO) 20 mg Oral Tablet Take by mouth daily. glipiZIDE (GLUCOTROL) 10 mg Oral Tablet Take 1 Tablet by mouth every morning. 90 Tablet 1 10/01/2024 insulin glargine (LANTUS SOLOSTAR U-100 INSULIN) 100 unit/mL (3 mL) SubQ Insulin Pen Inject 24 units every day 30 mL 1 06/12/2024 magnesium oxide 400 mg magnesium Oral Capsule Take by mouth. Take 2 times daily nitroGLYCERIN (NITROLINGUAL) 400 mcg/spray TL Sulphur, Non-Aerosol Place 1 Sulphur under the tongue every 5 minutes as needed for Chest pain. rOPINIRole (REQUIP) 0.5 mg Oral Tablet Take 0.5 mg by mouth. Takes once daily at night 01/30/2021 rosuvastatin (CRESTOR) 20 mg Oral Tablet Take 20 mg by mouth daily. 07/27/2022 sacubitriL-vals yudith (ENTRESTO) 24-26 mg Oral Tablet Take 1 Tab by mouth 2 times daily. semaglutide (OZEMPIC) 2 mg/dose (8 mg/3 mL) SubQ Pen InjectorIndicat ions:Type 2 diabetes mellitus with microalbuminuri a, with long-term current use of insulin (HCC) INJECT SUBCUTANEOUSLY 2 MG EVERY WEEK 3 mL 2 08/20/2024 torsemide (DEMADEX) 10 mg Oral Tablet 10 mg. Takes one tab MWF 05/25/2021 bempedoic acid 180 mg Oral Tablet Take 180 mg by mouth daily. 05/06/2023 Insulin [place], Disposable, (BD PATITO 2ND GEN PEN NEEDLE) 32 gauge x Misc Needle Use with insulin once daily 100 Each 1 04/02/2024 spironolactone (ALDACTONE) 25 mg Oral Tablet Take 25 mg by mouth daily. 5 documented as of this encounter Discharge Disposition Disposition Code Departure Means Destination Home or Self Care documented in this encounter Plan of Treatment Upcoming Encounters Date Type Department Care Team (Late st Contact Info) Description 11/01/2024 12:00 PM EDT Office Visit [facility] [address] [facility] [address] [place] [address] Oliver Wayne MD [address] [facility] [address] [facility] [place] [address] 01/02/2025 10:15 AM EST [facility] [address] [address] Dat Onofre MD [address] [place] [address] 03/28/2025 11:15 AM EST Office Visit [facility] Nephrology [place] [address] [facility] [address] [place] [address] Julio Silva MD [address] [facility] [facility] [facility] [address] [place] [address] documented as of this encounter Procedures Procedure Name Priority Date/Time Associated Diagnosis Comments PROTEIN/CREATININE RATIO URINE Routine 10/01/2024 2:40 PM EDT Stage 3b chronic kidney disease (HCC) HTN (hypertension), benign MICROALBUMIN/CREATININE RATIO URINE Routine 10/01/2024 2:40 PM EDT Stage 3b chronic kidney disease (HCC) URINALYSIS Routine 10/01/2024 2:40 PM EDT Stage 3b chronic kidney disease (HCC) BILIRUBIN DIRECT Routine 10/01/2024 12:4 9 PM EDT Stage 3b chronic kidney disease (HCC) VITAMIN D 25 HYDROXY Routine 10/01/2024 12:49 PM EDT Chronic kidney disease-mineral and bone disorder ALANINE AMINOTRANSFERASE Routine 025 12:49 PM EDT Stage 3b chronic kidney disease (HCC) ASPARTATE AMINOTRANSFERASE Routine 10/01/2024 12:49 PM EDT Stage 3b chronic kidney disease (HCC) PROTEIN TOTAL-BLOOD Routine 10/01/2024 1 2:49 PM EDT Stage 3b chronic kidney disease (HCC) ALKALINE PHOSPHATASE Routine 10/01/2024 12:49 PM EDT Stage 3b chronic kidney disease (HCC) PARATHYROID HORMONE INTACT Routine 10/01/2024 12:49 PM EDT Chronic kidney disease-mineral and bone disorder BILIRUBIN TOTAL Routine 10/01/2024 12:49 PM EDT Stage 3b chronic kidney disease (HCC) RENAL FUNCTION PANEL Routine 10/01/2024 12:49 PM EDT Stage 3b chronic kidney disease (HCC) HTN (hypertension), benign documented in this encounter Results * MICROALBUMIN/CREATININE RATIO URINE (10/01/2024 2:40 PM EDT) Urine Microalb 22.3 mg/L 10/01/2024 6:28 PM EDT [facility] Urine Creatinine 130.0 mg/dL 10/01/2024 6:28 PM EDT [facility] Ur Microalb/Creat 17 0 - 30 mg/g 10/01/2024 6:28 PM EDT [facility] Urine STRUCTURE OF URINARY TRACT PROPER / Unknown 10/01/2024 2:40 PM EDT 10/01/2024 2:40 PM EDT Julio Silva MD URINE ORDERABLES Final Result [facility] [address] [facility], [place] [address] [facility] [address] [place] [id number] * (ABNORMAL) URINALYSIS (10/01/2024 2:40 PM EDT) UA Color Light Yellow 10/01/2024 4:23 PM EDT [facility] UA Appear Clear Clear 10/01/2024 4:23 PM EDT [facility] UA Glucose 4+ (>1000mg/dL) (A) Negative mg/dL 10/01/2024 4:23 PM EDT [facility] UA Ketones Negative Negative mg/dL 10/01/2024 4:23 PM EDT [facility] UA Blood Negative Negative 10/01/2024 4:23 PM EDT [facility] UA pH 6.0 5.0 - 8.0 pH 10/01/2024 4:23 PM EDT [facility] UA Protein Negative Negative mg/dL 10/01/2024 4:23 PM EDT [facility] UA Urobilinogen Normal <=1 mg/dL 4:23 PM EDT [facility] UA Bili Negative Negative 10/01/2024 4:23 PM EDT [facility] UA Nitrite Negative Negative 10/01/2024 4:23 PM EDT [facility] [employer], [facility] UA Leuk Est Negative Negative 10/01/2024 4:23 PM EDT [facility], [facility] UA Spec Grav 1.031 1.001 - 1.035 no units 10/01/2024 4:23 PM EDT [facility], [facility] Comment:Reference range ji d for random specimens only. Urine STRUCTURE OF URINARY TRACT PROPER / Unknown 10/01/2024 2:40 PM EDT 10/01/2024 2:40 PM EDT Julio Silva MD URINE ORDERABLES Final Result Performing Organization Address City/[facility]/ZIP Co de Phone Number [facility] [address] [facility] , [place] [phone] * PROTEIN/CREATININE RATIO URINE (10/01/2024 2:40 PM EDT) Urine Protein 13.3 mg/dL 10/01/2024 6:28 PM EDT [facility] Urine Creatinine 130.0 mg/dL 10/01/2024 6:28 PM EDT [facility] [employer], [facility] Ur Protein/Creat 0.10 mg/mg 10/01/2024 6:28 PM EDT [facility] Urine STRUCTURE OF URINARY TRACT PROPER / Unknown 10/01/2024 2:40 PM EDT 10/01/2024 2:40 PM EDT Julio Silva MD URINE ORDERABLES Final Result Performing Organization Address City/[facility] Co de Phone Number [facility] [address] [facility] , [facility] [address] [place] [phone] [facility] [address] [place] [id number] * ALANINE AMINOTRANSFERASE (10/01/2024 12:49 PM EDT) ALT 20 <=41 U/L 10/01/2024 7:4 0 PM EDT [facility] Blood VENOUS BLOOD / Unknown Venipuncture / Unknown 10/01/2024 12:49 PM EDT 10/01/2024 12:49 PM EDT us Julio Silva MD CHEMISTRY ORDERABLES Final Resul t [facility] [address] [facility] , [place] [address] * ASPARTATE AMINOTRANSFERASE (10/01/2024 12:49 PM EDT) AST 20 <=40 U/L 10/01/2024 7:4 0 PM EDT [facility] [employer] Blood VENOUS BLOOD / Unknown Venipuncture / Unknown 10/01/2024 12:49 PM EDT 10/01/2024 12:49 PM EDT us Julio Silva MD CHEMISTRY ORDERABLES Final Resul t Performing Organization Address [facility] Co de Phone Number [facility] [address] [facility] , [address] [place] [phone] * PROTEIN TOTAL-BLOOD (10/01/2024 12:49 PM EDT) Total Protein 7.0 6.4 - 8.3 gm/dL 10/01/2024 7:40 PM EDT [facility] Blood VENOUS BLOOD / Unknown Venipuncture / Unknown 10/01/2024 12:49 PM EDT 10/01/2024 12:49 PM EDT us Julio Silva MD CHEMISTRY ORDERABLES Final Resul t Performing Organization Address City/[facility]/ZIP Co de Phone Number [facility] [address] [facility] , [place] [address] * ALKALINE PHOSPHATASE (10/01/2024 12:49 PM EDT) Alk Phos 55 40 - 129 U/L 10/01/2024 7:40 PM EDT [facility] [employer] Blood VENOUS BLOOD / Unknown Venipuncture / Unknown 10/01/2024 12:49 PM EDT 10/01/2024 12:49 PM EDT us Julio Silva MD CHEMISTRY ORDERABLES Final Resul t Performing Organization Address City/[facility]/ZIP Co de Phone Number [facility] [address] [facility] , [place] [address] * BILIRUBIN TOTAL (10/01/2024 12:49 PM EDT) Bili Total 0.5 0.2 - 1.4 mg/dL 10/01/2024 7:40 PM EDT [facility] [employer] Blood VENOUS BLOOD / Unknown Venipuncture / Unknown 10/01/2024 12:49 PM EDT 10/01/2024 12:49 PM EDT us Julio Silva MD CHEMISTRY ORDERABLES Final Resul t Performing Organization Address [facility] Co de Phone Number [facility] [address] [facility] , [place] [address] * BILIRUBIN DIRECT (10/01/2024 12:49 PM EDT) Bili Direct <0.2 0.0 - 0.3 mg/dL 10/01/2024 7:40 PM EDT [facility] Blood VENOUS BLOOD / Unknown Venipuncture / Unknown 10/01/2024 12:49 PM EDT 10/01/2024 12:49 PM EDT us Julio Silva MD CHEMISTRY ORDERABLES Final Resul t Performing Organization Address City/[facility]/ZIP Co de Phone Number [facility] [address] [facility] , [place] [address] * (ABNORMAL) PARATHYROID HORMONE INTACT (10/01/2024 12:49 PM EDT) PTH Intact 65.10(H) 15.00 - 65.00 pg/mL 10/01/2024 6:39 PM EDT [facility] [employer] Blood VENOUS BLOOD / Unknown Venipuncture / Unknown 10/01/2024 12:49 PM EDT 10/01/2024 12:49 PM EDT Narrative [facility] - 10/01/2024 6:39 PM EDT Intact PTH Calcium Interpretation ------- 15 - 65 8.6 - 10.2 Normal > 65 > 10.2 Primary Hyperparathyroidism < 20 > 10.2 Non-Parathyroid hypercalcemia < 15 < 8.6 Hypoparathyroidism Consider the above as guidelines only. PTH results should be interpreted in conjunction with the total or ionized calcium level. The finding of a persistently high-normal calcium accompanied by a high-normal PTH (or a low-normal calcium accompanied by a low-normal PTH) warrants further investigation. Although the PTH may itself be within normal limits, it may be inappropriately high (or low) relative to the circulating calcium level. Ingestion of pratik doses of biotin (>5 mg/day) taken within 8 hours of drawing blood sample can interfere with this immunoassay test. Julio Silva MD CHEMISTRY ORDERABLES Final Resul t [facility] [employer] [address] [facility] , [place] [address] * VITAMIN D 25 HYDROXY (10/01/2024 12:49 PM EDT) [facility] Vit D 25 OH 49.4 30.0 - 150.0 ng/mL 10/01/2024 7:54 PM EDT [facility] Comment: Preferred: >= 30 ng/mL Insufficient: 21-29 ng/mL Deficient <= 20 ng/mL Possible Toxicity: >150 ng/mL Samples should not be taken from patients receiving therapy with high biotin doses (i.e. > 5 mg/day) until at least 8 hours following the last biotin administration. Blood VENOUS BLOOD / Unknown Venipuncture / Unknown 10/01/2024 12:49 PM EDT 10/01/2024 12:49 PM EDT Julio Silva MD CHEMISTRY ORDERABLES Final Resul t [facility] [address] [facility] , [place] [address] * (ABNORMAL) RENAL FUNCTION PANEL (10/01/2024 12:49 PM EDT) Sodium 139 136 - 145 mmol/L 10/01/2024 7:40 PM EDT [facility] Potassium 4.3 3.5 - 5.0 mmol/L 10/01/2024 7:40 PM EDT [facility] Chloride 103 98 - 107 mmol/L 10/01/2024 7:40 PM EDT [facility] Total CO2 23 22 - 29 mmol/L 10/01/2024 7:40 PM EDT [facility] Anion Gap 13 7 - 16 mmol/L 10/01/2024 7:40 PM EDT [facility] Calcium 9.8 8.8 - 10.4 mg/dL 10/01/2024 7:40 PM EDT [facility] Glucose Lvl 120(H) 70 - 99 mg/dL 10/01/2024 7:40 PM EDT [facility] BUN 25(H) 8 - 23 mg/dL 10/01/2024 7:40 PM EDT [facility] Creatinine 1.30 0.67 - 1.30 mg/dL 10/01/2024 7:40 PM EDT [facility] Albumin 4.3 3.2 - 4.6 gm/dL 10/01/2024 7:40 PM EDT [facility] Phosphorus 2.7 2.5 - 4.5 mg/dL 10/01/2024 7:40 PM EDT [facility] eGFR (CKD-EPIcr 2020) 58(L) >=60 mL/min/1.7 3 m2 10/01/2024 7:40 PM EDT [facility] Comment:Estimated GFR was ca lculated using the CKD-EPIcr (2020) equation refit without race. The equation is recommended by the National Kidney Foundation - [place] [employer] of Nephrology Task Force. Blood VENOUS BLOOD / Unknown Venipuncture / Unknown 10/01/2024 12:49 PM EDT 10/01/2024 12:49 PM EDT us Julio Silva MD CHEMISTRY ORDERABLES Final Resul t [facility] [employer] [address] [facility], [address] [place], [place] [id number] documented in this encounter Visit Diagnoses Diagnosis Stage 3b chronic kidney disease (HCC) HTN (hypertension), benign Essential hypertension, benign Chronic kidney disease-mineral and bone disorder documented in this encounter Orders Lab Orders Without Results Count Last Ordered D ate First Ordered Date HEPATIC FUNCTION PANEL 1 10/01/2024 documented in this encounter Additional Health Concerns Assessment Noted Time A fall risk assessment has been complete d for the patient 10/19/2023 9:50 AM EDT documented as of this encounter Care Teams Public Relations Director Relationship Specialty Start Date End Date Aba Espinoza MD [address] [place] [id number] PCP - General Family Medicine 07/27/16 Fili Sanchez MD [address] [facility] [address] [place] [address] Internal Medicine-Endocrinology, Diabetes & Metabolism 04/11/14 Julio Silva MD [address] [place], [place] [id number] Physician Internal Medicine-Nephrology 04/25/24 documented as of this encounter
--- OUTSIDE RECORDS SUMMARY | 2024-10-01 13:45 | XMS_ITS | Encounter Summary ---
Author Organization [place] [address] Care Team Providers Care Oxyacetylene Welder Name Role Phone Fili Sanchez MD Unavailable [phone] Aba Espinoza MD Primary Care Provider [phone] Julio Silva MD Unavailable Reason for Referral * Consultation (Routine) - Pending Review Specialty Diagnoses / Procedures Referred By Kadie casillas Referred To Contact Otolaryngology Diagnoses Chronic sinusitis, unspecified location Procedures ME OFFICE/OUTPATIENT NEW MODERATE MDM 45 MINUTES Dat Onofre MD [address] [place] [address] Phone: tel: fax: [facility] [address] [address] Phone: tel: fax: Referral ID Status Reason Start Date Expiration Date V isits Requested Visits Authorized [id number] Pending Review 10/01/2024 10/01/2025 99 99 Reason for Visit * Reason Comments Diabetes Encounter Details Date Type Department Care Team (Late st Contact Info) Description 10/01/2024 1:45 PM EDT Office Visit [facility] [place] [address] [facility] [address] [place] [address] Dat Onofre MD [address] [place] [address] Type 2 diabetes mellitus with microalbuminuria, with long-term current use of insulin (HCC) (Primary Dx); Hypertension associated with diabetes (HCC); Hyperlipidemia associated with type 2 diabetes mellitus (HCC); Chronic sinusitis, unspecified location Social History Tobacco Use Types Packs/Day Years [...] Sign Reading Time Taken Comments Blood Pressure 110/60 10/01/2024 1:19 PM EDT Pulse 73 10/01/2024 1:19 PM EDT Temperature - - Respiratory Rate 18 10/01/2024 1:19 PM EDT Oxygen Saturation - - Inhaled Oxygen Concentration - - Weight 122 kg (269 lb) 10/01/2024 1:19 PM EDT Height 185.4 cm (6' 1 ) 10/01/2024 1:19 PM EDT Body Mass Index 35.49 10/01/2024 1:19 PM EDT documented in this encounter Ordered Prescriptions Prescription Sig Dispense Quantity Refills Last Filled Start Date End Date glipiZIDE (GLUCOTROL) 10 mg Oral Tablet Take 1 Tablet by mouth every morning. 90 Tablet 1 10/01/2024 documented in this encounter Progress Notes * Dat Onofre MD - 10/01/2024 1:45 PM EDT Subjective Subjective: Patient ID: Dane Ray is a 73 y.o. male. Chief Complaint Patient presents with Diabetes HPI: Dane returns for follow up of type 2 diabetes. He reports doing well overall since last visit. He has not had any severe hypoglycemia but some minor hypoglycemia alarms at random times. He reports taking his medications regularly. He has had a few sensor failures, one two days ago that said continu ous running. He reports some problems with chronic sinus congestion over the past year since falling on his face. This can interfere with his use of CPAP. 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 There were no changesexcept as noted. Review of Systems Objective Outpatient Medications Marked as Taking for the 10/01/24 encounter (Office Visit) with Dat Onofre MD Medication Sig Dispense Refill allopurinoL (ZYLOPRIM) 100 mg Oral Tablet 100 mg daily. TAKES IN EVENING aspirin (ASPIRIN) 81 mg Oral Tablet, Chewable Take 1 Tab by mouth daily. 30 Tab 0 Blood Sugar Diagnostic (ACCU-CHEK GUIDE TEST STRIPS) Misc Strip Use to test blood sugars daily. Dx Code:E11.65 100 Strip 3 Blood-Glucose Sensor (FREESTYLE THIEN 3 PLUS SENSOR) Misc Device Inject 1 Each under the skin every15 days. DME 6 Each 3 carvediloL (COREG) 25 mg Oral Tablet Take 25 mg by mouth 2 times daily. cyanocobalamin 1,000 mcg Oral Tablet Take 1 Tablet by mouth daily. Take one tab daily empagliflozin (JARDIANCE) 25 mg Oral Tablet Take 1 Tablet by mouth daily. 90 Tablet 3 ergocalciferol (VITAMIN D) 1,250 mcg (50,000 unit) Oral Capsule TAKE 1 CAPSULE BY MOUTH ONCE [id number] Capsule 1 escitalopram oxalate (LEXAPRO) 20 mg Oral Tablet Take by mouth daily. glipiZIDE (GLUCOTROL) 10 mg Oral Tablet Take 1 Tablet by mouth every morning. 90 Tablet 1 [DISCONTINUED] glipiZIDE (GLUCOTROL) 10 mg Oral Tablet Take 1 Tablet by mouth every morning. 90 Tablet 1 insulin glargine (LANTUS SOLOSTAR U-100 INSULIN) 100 unit/mL (3 mL) SubQ Insulin Pen Inject 24 units every day 30 mL 1 Insulin [place], Disposable, (BD PATITO 2ND GEN PEN NEEDLE) 32 gauge x 5/32 Misc Needle Use with insulin once daily 100 Each 1 magnesium oxide 400 mg magnesium Oral Capsule Take by mouth. Take 2 times daily nitroGLYCERIN (NITROLINGUAL) 400 mcg/spray TL [place], Non-Aerosol Place 1 [place] under the tongue every 5 minutes as needed for Chest pain. rOPINIRole (REQUIP) 0.5 mg Oral Tablet Take 0.5 mg by mouth. Takes once daily at night rosuvastatin (CRESTOR) 20 mg Oral Tablet Take 20 mg by mouth daily. sacubitriL-valsartan (ENTRESTO) 24-26 mg Oral Tablet Take 1 Tab by mouth 2 times daily. semaglutide (OZEMPIC) 2 mg/dose (8 mg/3 mL) SubQ Pen Injector INJECT SUBCUTANEOUSLY 2 MG EVERY WEEK3 mL 2 spironolactone (ALDACTONE) 25 mg Oral Tablet Take 25 mg by mouth daily. torsemide (DEMADEX) 10 mg Oral Tablet 10 mg. Takes one tab MWF Objective: DATA REVIEW: LABS Recent and historical labs reviewed in chart, results discussed with patient. DIABETES CGM TIR 79%, TAR 21%, TBR 0% AVG 149, GMI 6.9%, GV 25.1% Pattern: Good nocturnal control with recurring postprandial hyperglycemia. Lab Results Component Value Date HGBA1C 7.3 (A) 10/01/2024 HGBA1C 8.1 (H) 05/28/2024 HGBA1C 8.8 (A) 01/30/2024 RENAL Lab Results Component Value Date CREATININE 1.45 (H) 05/28/2024 Lab Results Component Value Date MICROALBCR 05/28/2024 Comment: Because the albumin level is below the level of detection in this urine specimen, the laboratory isunable to calculate a reliable albumin/creatinine ratio. Microalbuminuria is unlikely if the urine albumin concentration is less than 20- 30 mg/L in a randomspecimen. LIPIDS No components found for: LDL Lab Results Component Value Date LDLCALC 49 05/28/2024 Lab Results Component Value Date LDLDIRECT 61 06/27/2020 Lab Results Component Value Date HDL 43 05/28/2024 Lab Results Component Value Date TRIG 157 (H) 05/28/2024 Lab Results Component Value Date CHOLESTEROL 119 05/28/2024 OTHER Lab Results Component Value Date TSH 2.750 02/23/2023 FREET4 1.27 04/16/2014 Lab Results Component Value Date NTRO15LC 41.5 05/21/2024 Lab Results Component Value Date [id number] 867 05/30/2023 Vitals: 10/01/24 1319 BP: 110/60 BP Location: Left arm Pulse: 73 Resp: 18 Weight: 269 lb (122 kg) Height: 6' 1 (1.854 m) Body mass index is 35.49 kg/m??. Physical Exam Vitals and nursing note reviewed. Assessment and Plan: Diagnoses and all orders for this visit: Type 2 diabetes mellitus with microalbuminuria, with long-term current use of insulin (HCC) (Chronic) - POCT GLYCATED HEMOGLOBIN, TOTAL - ME CONTINUOUS GLUCOSE MONITORING ANALYSIS I&R Hypertension associated with diabetes (HCC) (Chronic) Hyperlipidemia associated with type 2 diabetes mellitus (HCC) (Chronic) Chronic sinusitis, unspecified location - AMB REFERRAL TO ENT Other orders - glipiZIDE (GLUCOTROL) 10 mg Oral Tablet; Take 1 Tablet by mouth every morning. Dispense: 90 Tablet; Refill: 1 Assessment and Recommendations: Type 2 diabetes with neuropathy and hyperglycemia is improving with HbA1c own to 7.3%. He is havingsome minor hypoglycemia and having to eat snack at bedtime to avoid lows. Hypertension controlled. Hyperlipidemia treated with rosuvastatin. Managed by Dr. Quan. CHF condition stable. he is following treatment plan and has follow up with his mortgage specialist soon. He is on Jardiance as part of his treatment plan. Claudication symptoms stable. He has minor swelling in ankles that improves overnight and with elevation. No shortness of breath. Chronic sunusitis symptoms affecting use of CPAP. This occurred after falling on face a year ago. He has no obvious nasal deformity. I recommend starting OTC Flonase and referral to ENT to assess forsome kind of structural issue Return to office: Return in about 3 months (around 01/01/2025) for Type 2 diabetes. documented in this encounter Miscellaneous Notes * Addendum Note - Dat Onofre MD - 10/01/2024 1:45 PM EDTAddended by: DAT ONOFRE on: 10/03/2024 11:50 AM Modules accepted: Orders documented in this encounter Plan of Treatment Upcoming Encounters Date Type Department Care Team (Late st Contact Info) Description 11/01/2024 12:00 PM EDT Office Visit [facility] [address] [facility] [address] [place] [id number] Oliver Wayne MD [address] [facility] [address] [facility] [place] [address] 01/02/2025 10:15 AM EST [facility] [place] [address] [phone] Dat Onofre MD [address] [place], [place] [id number] 03/28/2025 11:15 AM EST Office Visit [facility] Nephrology [place] [address] [facility] [address] [place] [address] Julio Silva MD [address] [address] Scheduled Orders Name Type Priority Associated Diagnoses Orde r Schedule ME CONTINUOUS GLUCOSE MONITORING ANALYSIS I&R ME Charge Routine Type 2 diabetes mellitus with microalbuminuria, with long-term current use of insulin (HCC) Ordered: 10/01/2024 Scheduled Referrals Name Type Priority Associated Diagnoses Orde r Schedule AMB REFERRAL TO ENT Outpatient Referral Routine Chronic sinusitis, unspecified location Ordered: 10/01/2024 documented as of this encounter Procedures Procedure Name Priority Date/Time Associated Diagnosis Comments POCT GLYCATED HEMOGLOBIN, TOTAL Routine 10/01/2024 1:25 PM EDT Type 2 diabetes mellitus with microalbuminuria, with long-term current use of insulin (HCC) documented in this encounter Results * (ABNORMAL) POCT GLYCATED HEMOGLOBIN, TOTAL (10/01/2024 1:25 PM EDT) Hemoglobin A1C 7.3(A) 4 - 6 % SEP OFFICE Lot Number SEP OFFICE Expiration Date SEP OFFICE SeriAl # SEP OFFICE 10/01/2024 1:25 PM EDT Dat Onofre MD POINT OF CARE TEST ORDERABLES Final Result SEP OFFICE documented in this encounter Visit Diagnoses Diagnosis Type 2 diabetes mellitus with microalbuminuria, with long-term current use of insulin (HCC)- Primary Hypertension associated with diabetes (HCC) Type II or unspecified type diabetes mellitus with other specified manifestations, not stated as uncontrolled Hyperlipidemia associated with type 2 diabetes mellitus (HCC) Chronic sinusitis, unspecified location documented in this encounter Discontinued Medications Medication Sig Discontinue Reason Start Date End Da te glipiZIDE (GLUCOTROL) 10 mg Oral Tablet Take 1 Tablet by mouth every morning. Reorder 08/03/2024 10/01/2024 bempedoic acid 180 mg Oral Tablet Take 180 mg by mouth daily. Cost of medication 05/06/2023 10/03/2024 documented as of this encounter Additional Health Concerns Assessment Noted Time A fall risk assessment has been complete d for the patient 10/19/2023 9:50 AM EDT documented as of this encounter Care Teams Oxyacetylene Welder Relationship Specialty Start Date End Date Aba Espinoza MD [facility] [address] [place] [address] PCP - General Family Medicine 07/27/16 Fili Sanchez MD [address] [facility] [address] [place] [address] Internal Medicine-Endocrinology, Diabetes & Metabolism 04/11/14 Julio Silva MD [address] [facility] [address] [place] [address] Physician Internal Medicine-Nephrology 04/25/24 documented as of this encounter
--- OUTSIDE RECORDS SUMMARY | 2024-10-04 14:20 | XMS_ITS | Encounter Summary ---
Author Organization [facility] Address [address] [address] Care Team Providers Care Client Consultant Name Role Phone Fili Sanchez MD Unavailable [phone] Aba Espinoza MD Primary Care Provider [phone] Julio Silva MD Unavailable Reason for Visit * Reason Comments Nasal Congestion * Consultation (Routine) - Pending Review Specialty Diagnoses / Procedures Referred By Kadie casillas Referred To Contact Otolaryngology Diagnoses Chronic sinusitis, unspecified location Procedures PA OFFICE/OUTPATIENT NEW MODERATE MDM 45 MINUTES Dat Onofre MD [address] [place] [id number] Phone: tel: fax: [facility] [address] [address] Phone: tel: fax: Referral ID Status Reason Start Date Expiration Date V isits Requested Visits Authorized [id number] Pending Review 10/01/2024 10/01/[phone] Encounter Details Date Type Department Care Team (Late st Contact Info) Description 10/04/2024 2:20 PM EDT Office Visit [facility] [address] [address] Oliver Wayne MD [address] [facility] [address] [facility] [place] [address] Chronic sinusitis, unspecified location (Primary Dx); Deviated nasal septum; Hypertrophy of nasal turbinates; Impacted cerumen, left ear; IVY (obstructive sleep apnea) Social History Tobacco Use Types Packs/Day Years Used Date Smoking Tobacco: Former Cigarettes 2.5 8.2 1 03/02/2012 - 06/25/2016 Passive Smoke Exposure: [...] Sign Reading Time Taken Comments Blood Pressure 107/70 10/04/2024 2:02 PM EDT Pulse 69 10/04/2024 2:02 PM EDT Temperature - - Respiratory Rate - - Oxygen Saturation - - Inhaled Oxygen Concentration - - Weight 119.4 kg (263 lb 3.2 oz) 10/04/2024 2:02 PM EDT Height 190.5 cm (6' 3 ) 10/04/2024 2:02 PM EDT Body Mass Index 32.9 10/04/2024 2:02 PM EDT documented in this encounter Ordered Prescriptions Prescription Sig Dispense Quantity Refills Last Filled Start Date End Date sod cxaad-ihrpap-cpiom z bottle (NEILMED SINUS RINSE COMPLETE) mark packet with rinse deviceIndications: Chronic sinusitis, unspecified location,Deviated nasal septum,Hypertrophy of nasal turbinates 1 Package by sinus irrigation route daily for 30 days. 30 Each 4 10/04/2024 5 azelastine (ASTELIN) 137 mcg (0.1 %) Nasl Pablo, Non-AerosolIndicat ions:Chronic sinusitis, unspecified location,Deviated nasal septum,Hypertrophy of nasal turbinates 2 Sprays in each nostril daily. Use in each nostril as directed 30 mL 5 10/04/2024 fluticasone propionate (FLONASE) 50 mcg/actuation Nasl Pablo, SuspensionIndicati ons:Chronic sinusitis, unspecified location,Deviated nasal septum,Hypertrophy of nasal turbinates 2 Sprays by Nasal route daily. 1 Each 5 10/04/2024 documented in this encounter Progress Notes * Oliver Wayne MD - 10/04/2024 2:20 PM EDT Images from the original note were not included. Dane Ray 1950 73 y.o. male 10/04/2024 New Ear Nose Throat or Allergy Patient - Pediatric or Adult Oliver Wayne MD, [facility] Referring Provider: Dat Onofre MD Chief Complaint Patient presents with Nasal Congestion HPI Dane Ray is a 73 y.o. male who is being seen in consultation at the request of Dat Onofre MD for sinuses. Patient states symptoms started 1 year(s) ago. Symptoms include: cough headaches itchy eyes nasal congestion postnasal drip sinus pressure sinus congestion Worst Symptom: nasal congestion Are symptoms seasonal or all year long? all the time Worst season(s): n/a Environmental triggers? Pets in the home: dogs (2). Rizwan: hardwood floors and dsho-jl-refn carpeting Climate Control: central or room air conditioning and air filters Basement: Yes--it is dry Tobacco Smoke in Home: yes Medications currently using: Allergy/ Sinus Medications: none Antibiotics ( How long was treatment): None Medications tried in past: Antihistamines: none Steroid nasal spray: none Non-Steroid nasal spray: none Decongestants: none Singulair: No Oral Steroid: No Saline nasal spray: No Saline irrigation (such as Neti pot, Sinus rinse by [employer] [facility] or [employer]): No Antibiotics in the last 6 months ( How long was treatment): none History of: Nasal Polyps? no Asthma or eczema? No Chronic or recurrent sinus infections? No Sinus surgery? no Previously been allergy tested or received treatment with immunotherapy? If so, where? no CT Sinus imaging? no Other testing? none Does the patient have any trouble with anesthesia? no Is there a family history of: Trouble with anesthesia? no Malignant Hyperthermia (high fever due to anesthesia)? no Pseudo cholinesterase deficiency (enzyme deficiency/very long time to wake from anesthesia)? no Has the patient tested positive for COVID-19 in the past 5 days? No Has the patient experienced any NEW onset: fever; cough; sore throat; vomiting; or diarrhea? No I, Dr.Nathan Wayne, have personally reviewed all above HPI elements in person and have updated as needed. Medical History: Past Medical History: Diagnosis Date Diabetes mellitus ([facility]) Difficulty walking High blood pressure Hyperlipidemia Multiple endocrine neoplasia (HCC) Neuropathy in diabetes ([facility]) Uncontrolled diabetes mellitus with stage 3 chronic kidney disease, without long-term current use of insulin 02/22/2019 Patient Active Problem List Diagnosis Date Noted Difficulty walking 04/06/2024 Hyperlipidemia associated with type 2 diabetes mellitus ([facility]) 06/01/2023 Obesity, diabetes, and hypertension syndrome ([facility]) 02/25/2023 Vitamin D deficiency 11/25/2022 Stage 3a chronic kidney disease ([facility]) 11/25/2022 Type 2 diabetes mellitus with microalbuminuria, with long-term current use of insulin ([facility]) 10/28/2022 Long-term insulin use ([facility]) 10/28/2022 Encounter for long-term (current) use of medications 10/28/2022 Dyslipidemia associated with type 2 diabetes mellitus ([facility]) 10/28/2022 Type 2 diabetes mellitus with diabetic nephropathy, with long-term current use of insulin ([facility]) 02/22/2019 Severe obesity (BMI 35.0-39.9) with comorbidity ([facility]) 06/01/2018 Hypertension associated with diabetes ([facility]) 08/13/2014 Screening PSA (prostate specific antigen) 04/29/2014 Dyslipidemia 04/11/2014 Male erectile disorder 04/11/2014 Current Outpatient Medications Medication Instructions allopurinoL (ZYLOPRIM) 100 mg, DAILY aspirin (ASPIRIN) 81 mg, Oral, DAILY azelastine (ASTELIN) 137 mcg (0.1 %) Nasl Pablo, Non-Aerosol 2 Sprays, Each Nare, DAILY, Use in each nostril as directed Blood Sugar Diagnostic (ACCU-CHEK GUIDE TEST STRIPS) Misc Strip Use to test blood sugars daily. Dx Code:E11.65 Blood-Glucose Sensor (FREESTYLE THIEN 3 PLUS SENSOR) Misc Device 1 Each, Subcutaneous, EVERY 15 DAYS, DME carvediloL (COREG) 25 mg, 2 TIMES DAILY cyanocobalamin 1,000 mcg, Oral, DAILY, Take one tab daily empagliflozin (JARDIANCE) 25 mg, Oral, DAILY escitalopram oxalate (LEXAPRO) 20 mg Oral Tablet DAILY fluticasone propionate (FLONASE) 50 mcg/actuation Nasl Pablo, Suspension 2 Sprays, Nasal, DAILY glipiZIDE (GLUCOTROL) 10 mg, Oral, EVERY MORNING insulin glargine (LANTUS SOLOSTAR U-100 INSULIN) 100 unit/mL (3 mL) SubQ Insulin Pen Inject 24 units every day Insulin [place], Disposable, (BD PATITO 2ND GEN PEN NEEDLE) 32 gauge x /32 Misc Needle Use with insulin once daily magnesium oxide 400 mg magnesium Oral Capsule Take by mouth. Take 2 times daily nitroGLYCERIN (NITROLINGUAL) 400 mcg/spray TL Pablo, Non-Aerosol 1 Pablo, EVERY 5 MIN PRN rOPINIRole (REQUIP) 0.5 mg rosuvastatin (CRESTOR) 20 mg, DAILY sacubitriL-valsartan (ENTRESTO) 24-26 mg Oral Tablet 1 Tablet, 2 TIMES DAILY semaglutide (OZEMPIC) 2 mg/dose (8 mg/3 mL) SubQ Pen Injector INJECT SUBCUTANEOUSLY 2 MG EVERY WEEK sod nqiwy-vqzibx-luewex bottle (NEJaypore SINUS RINSE COMPLETE) mark packet with rinse device 1 Package, sinus irrigation, DAILY spironolactone (ALDACTONE) 25 mg, DAILY torsemide (DEMADEX) 10 mg vitamin D 50,000 Units, Oral, WEEKLY Allergies Allergen Reactions Metformin Swelling Swelling of feet and myalgias Actos [Pioglitazone] Other (See Comments) HF Epinephrine Other (See Comments) Contraindicated related to pt's EF=25% Rosuvastatin Other (See Comments) Leg cramps and pain. Past Surgical History: Procedure Laterality Date BYPASS GRAFT 11/2021 COLONOSCOPY PACEMAKER PLACEMENT Social History Tobacco Use Smoking status: Former Current packs/day: 0.00 Average packs/day: 2.5 packs/day for 8.2 years (20.4 ttl pk-yrs) Types: Cigarettes Start date: 12/31/2012 Quit date: 06/25/2016 Years since quittin.2 Passive exposure: Past Smokeless tobacco: Never Tobacco comments: 3 months ago Vaping Use Vaping status: Never Used Substance Use Topics Alcohol use: Not Currently Alcohol/week: 6.0 oz Types: 10 Cans of beer per week Comment: A week Drug use: Never Family History Problem Relation Age of Onset Heart Attack Mother Diabetes Father Heart Attack Father ROS Positive: nasal congestion, sinus pressure, sinus congestion, post nasal drip Exam: Vitals: 10/04/24 1402 BP: 107/70 BP Location: Right arm Patient Position: Sitting Pulse: 69 Weight: 263 lb 3.2 oz (119.4 kg) Height: 6' 3 (1.905 m) Body mass index is 32.9 kg/m??. 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) Left Ear: -: Pre and post-auricular soft tissue and pinna normal EAC: cerumen Cerumen: removed in office Oral Cavity: -: Appeared normal- including lips, dentition and tongue Oropharynx: Soft palate: Mallampati Mallampati: 1 Thyroid: -: Thyroid not enlarged, symmetric, no tenderness, mass, nodules noted Neck: -: No masses noted on palpation Lymphatic: -: Palpation of the cervical and paratracheal lymph nodes reveals no adenopathy Respiratory: -: (no stridor) Neurological: -: Alert, appropriate and does not appear agitated, Oriented to time, place and person, Normal mood and affect Assessment and Plan: Diagnoses addressed this visit: 1. Chronic sinusitis, unspecified location PA NASAL ENDOSCOPY DIAGNOSTIC UNI/BI SPX fluticasone propionate (FLONASE) 50 mcg/actuation Nasl Pablo, Suspension azelastine (ASTELIN) 137 mcg (0.1 %) Nasl Pablo, Non-Aerosol sod nsqey-oxuheg-guxzoo bottle (NEILMED SINUS RINSE COMPLETE) mark packet with rinse device 2. Deviated nasal septum fluticasone propionate (FLONASE) 50 mcg/actuation Nasl Pablo, Suspension azelastine (ASTELIN) 137 mcg (0.1 %) Nasl Pablo, Non-Aerosol sod qoafl-dkcrcn-cxdonm bottle (NEILMED SINUS RINSE COMPLETE) mark packet with rinse device 3. Hypertrophy of nasal turbinates fluticasone propionate (FLONASE) 50 mcg/actuation Nasl Pablo, Suspension azelastine (ASTELIN) 137 mcg (0.1 %) Nasl Pablo, Non-Aerosol sod kpahc-zbvcxp-uherot bottle (NEILMED SINUS RINSE COMPLETE) mark packet with rinse device 4. Impacted cerumen, left ear PA REMOVAL IMPACTED CERUMEN INSTRUMENTATION UNILAT 5. IVY (obstructive sleep apnea) Mr Ray is a pleasant 73-year-old gentleman who presented today for evaluation of chronic nasal obstruction as well as possible chronic sinusitis. Examination today showed evidence of leftwardseptal deviation as well as bilateral inferior turbinate hypertrophy. I recommended a 1 month trialof Flonase sprays as well as saline irrigations. I will then see him for follow-up. If he is unableto achieve adequate improvement we will discuss the option for septoplasty with bilateral inferior turbinate reduction. PROCEDURE NOTE: 10/04/2024 Procedure: Nasal Endoscopy Indication: chronic sinusitis Surgeon: Oliver Wayne MD Anesthesia: Oxymetazoline, Lidocaine EBL: None Correct site procedure and patient confirmed, informed consent obtained. Description of Procedure: The scope was then passed into each nostril inspecting the interior of the nasal cavity, the inferior, middle and superior meatus, the turbinates and the spheno-ethmoid recess. The following findingswere noted. Findings: Septum: deviated to left Structure Right Left Inferior turbinates edematous edematous Middle turbinates normal normal Middle meatus visualization compromised by lateralization of turbinate visualization compromised bylateralization of turbinate Sphenoethmoid recess visualization compromised by lateralization of turbinate visualization compromised by lateralization of turbinate Patient tolerated the procedure well. PROCEDURE NOTE: 10/04/2024 Pre Procedure Diagnosis: Cerumen impaction on left Post Procedure Diagnosis: Same Procedure: Microscopic removal of cerumen impaction on left Indication: Obstructing impacted cerumen left Surgeon: Oliver Wayne MD Anesthesia: None EBL: None Description of Procedure: The binocular microscope was used to visualize the left external auditory canal. Impacted cerumen was addressed using a curved pick, all cerumen was removed and the ear canal was clear. The patient tolerated this procedure well. Return in about 4 weeks (around 11/01/2024). [facility] [address] [facility] [phone] This note may have been partially dictated using [employer] voice recognition software and may contain unintended error. documented in this encounter Miscellaneous Notes * Patient Instructions - Andrew TeshaKRISTOPHER Shaw - 10/04/2024 2:20 PM EDT Images from the original note were not included. Nasal saline irrigation is used to maximize the health of the sinuses particularly in patients withpoor sinus function due to a history of chronic sinus problems or patients recently undergoing surgery. Saline preparation: Our preferred method is to use the ColdSpark Sinus Rinse bottle system and the premixed saline packets. Follow the directions that come with the bottle for preparation. You will want to use distilled water or sterilize your own water by boiling water and placing it in a pitcher. Allow it to cool to room temperature before rinsing your nose out. You will fill up the provided bottle or neti pot with the water and add in 1 packet of the salt that comes with the kit. Irrigation instructions: 1. Insert either a squeeze bottle (preferred), baby bulb syringe, or a water pik attachment gently into your nose an inch or less. 2. Lean your head over a sink. 3. Wash each side of your nose with enough solution until it runs back out clear (at least 50cc). 4. Perform nasal irrigation twice a day as long as directed or until instructed to use a taper schedule. 5. If you use a nasal steroid or other medicated rinse: You should always use the saline rinse before using your medicated spray or rinse so you do not rinse out the medication. 6. Change the bottle, bulb, or syringe out every two weeks. Preparing your own saline mixture Some patients prefer to prepare their own saline. Below are instructions for doing this. a. Boil 1 quart of tap or bottled water and pour into a clean jar. b. Add 1 to 3 teaspoons of non-iodized salt per quart of water and shake or stir. Adjust the amountof salt as needed that irritates your nose the least. c. Some people prefer to add 1 teaspoon of baking soda (pure bicarbonate) to the solution to make it less irritating. This is optional. d. Make up fresh each day or store in a refrigerator for no longer than one week. e. LET THE WATER COOL TO ROOM TEMPERATURE BEFORE IRRIGATING YOUR NOSE. If it has been in the refrigerator you can warm it to room temperature with a microwave if preferred. DO NOT USE HOT SOLUTION. f. Pour some of the solution into a clean bowl and fill the bottle or syringe with the salt water mixture. documented in this encounter Plan of Treatment Upcoming Encounters Date Type Department Care Team (Late st Contact Info) Description 11/01/2024 12:00 PM EDT Office Visit [facility] [address] [place] [address] Oliver Wayne MD 40 [facility] 101 [facility] [place] [address] 01/02/2025 10:15 AM EST [facility] [place] [address] [facility] [address] [place] [phone] Dat Onofre MD [address] [place], [place] [id number] 03/28/2025 11:15 AM EST Office Visit [facility] [place] [address] [facility] [address] [facility] [address] [place] [address] Julio Silva MD [address] [facility] [address] [place] [address] Scheduled Orders Name Type Priority Associated Diagnoses Orde r Schedule PA REMOVAL IMPACTED CERUMEN INSTRUMENTATION UNILAT PA Charge Routine Impacted cerumen, left ear Ordered: 10/04/2024 PA NASAL ENDOSCOPY DIAGNOSTIC UNI/BI SPX PA Charge Routine Chronic sinusitis, unspecified location Ordered: 10/04/2024 documented as of this encounter Visit Diagnoses Diagnosis Chronic sinusitis, unspecified location- Primary Deviated nasal septum Hypertrophy of nasal turbinates Impacted cerumen, left ear IVY (obstructive sleep apnea) Obstructive sleep apnea (adult) (pediatric) documented in this encounter Additional Health Concerns Assessment Noted Time A fall risk assessment has been complete d for the patient 10/19/2023 9:50 AM EDT documented as of this encounter Care Teams Client Consultant Relationship Specialty Start Date End Date Aba Espinoza MD [address] [place] [address] [place] [id number] PCP - General Family Medicine 07/27/16 Fili Sanchez MD [address] [phone] Internal Medicine-Endocrinology, Diabetes & Metabolism 04/11/14 Julio Silva MD [address] [facility] [address] [place] [address] Physician Internal Medicine-Nephrology 04/25/24 documented as of this encounter
--- OUTSIDE RECORDS SUMMARY | 2024-10-09 16:30 | XMS_ITS | Encounter Summary ---
Author Organization [place] [address] Care Team Providers Care Radiographer Name Role Phone Fili Sanchez MD Unavailable [phone] Aba Espinoza MD Primary Care Provider [phone] Julio Silva MD Unavailable Reason for Referral * In Office Procedure (Routine) - Authorization Not Needed Specialty Diagnoses / Procedures Referred By Kadie casillas Referred To Contact Diagnoses Onychodystrophy Onychomycosis Pain in toes of both feet Type 2 diabetes mellitus with diabetic nephropathy, with long-term current use of insulin ([facility]) Procedures MO DEBRIDEMENT NAIL ANY METHOD 1-5 Dane Alanis DPM [address] [place] [id number] Phone: tel: fax: Referral ID Status Reason Start Date Expiration Date Visits Requested Visits Authorized [id number] Authorization Not Needed 10/09/2024 10/09/2025 1 1 Reason for Visit * Reason Comments Nail Care bilateral feet Encounter Details Date Type Department Care Team (Late st Contact Info) Description 10/09/2024 4:30 PM EDT Office Visit [facility] [address] [place] [phone] Dane Alanis, DPM [address] [place] [address] Pain in toes of both feet (Primary Dx); Right foot pain; Type 2 diabetes mellitus with microalbuminuria, with long-term current use of insulin (HCC); Onychodystrophy; Onychomycosis; Corns and callosities; Difficulty walking; Type 2 diabetes mellitus with diabetic nephropathy, [...] Pressure - - Pulse - - Temperature 36.5 C (97.7 F) 10/09/2024 4:22 PM EDT Respiratory Rate - - Oxygen Saturation - - Inhaled Oxygen Concentration - - Weight 121.1 kg (267 lb) 10/09/2024 4:22 PM EDT Height 190.5 cm (6' 3 ) 10/09/2024 4:22 PM EDT Body Mass Index 33.37 10/09/2024 4:22 PM EDT documented in this encounter Progress Notes * Liz Lemons MA - 10/09/2024 4:30 PM EDT Review of Systems Constitutional: Negative for activity change, chills, fatigue and fever. Eyes: Negative for visual disturbance. Respiratory: Negative for apnea and shortness of breath. Cardiovascular: Negative for chest pain and leg swelling. Gastrointestinal: Negative for nausea and vomiting. Musculoskeletal: Positive for joint swelling (had gel and steroid). Negative for back pain and gaitproblem. Skin: Negative for rash and wound. Neurological: Positive for headaches. Negative for dizziness, seizures, weakness, light-headedness and numbness. Hematological: Does not bruise/bleed easily. Psychiatric/Behavioral: Negative for agitation, behavioral problems and confusion. The patient is not nervous/anxious. All other systems reviewed and are negative. * Dane Alanis DPM - 10/09/2024 4:[address] [facility] Podiatric Surgery Outpatient Progress Note Dane Alanis DPM Name: Dane Ray Primary Care Physician: Aba Espinoza MD Chief Complaint: Chief Complaint Patient presents with Nail Care bilateral feet History of Presenting Illness: Dane Ray is a 73 y.o. male who is coming here for diabetic foot care and a thicken lesionon the outside of his right foot. The patient stated that the diabetic cream has helped relieve pain from his neuropathy. Medications: Outpatient Medications Marked as Taking for the 10/09/24 encounter (Office Visit) with Dane Alanis DPM Medication Sig Dispense Refill allopurinoL (ZYLOPRIM) 100 mg Oral Tablet 100 mg daily. TAKES IN EVENING aspirin (ASPIRIN) 81 mg Oral Tablet, Chewable Take 1 Tab by mouth daily. 30 Tab 0 azelastine (ASTELIN) 137 mcg (0.1 %) Nasl Allen, Non-Aerosol 2 Sprays in each nostril daily. Use ineach nostril as directed 30 mL 5 Blood Sugar Diagnostic (ACCU-CHEK GUIDE TEST STRIPS) [...] Capsule TAKE 1 CAPSULE BY MOUTH ONCE [id number] Capsule 1 escitalopram oxalate (LEXAPRO) 20 mg Oral Tablet Take by mouth daily. fluticasone propionate (FLONASE) 50 mcg/actuation Nasl Allen, Suspension 2 Sprays by Nasal route daily. 1 Each 5 glipiZIDE (GLUCOTROL) 10 mg Oral Tablet Take 1 Tablet by mouth every morning. 90 Tablet 1 insulin glargine (LANTUS SOLOSTAR U-100 INSULIN) 100 unit/mL (3 mL) SubQ Insulin Pen Inject 24 units every day 30 mL 1 Insulin [place], Disposable, (BD PATITO 2ND GEN PEN NEEDLE) 32 gauge x 5/32 Misc Needle Use with insulin once daily 100 Each 1 magnesium oxide 400 mg magnesium Oral Capsule Take by mouth. Take 2 times daily nitroGLYCERIN (NITROLINGUAL) 400 mcg/spray TL Allen, Non-Aerosol Place 1 Allen under the tongue every 5 minutes as [...] SUBCUTANEOUSLY 2 MG EVERY WEEK3 mL 2 sod mqvqk-dvkjru-quggqy bottle (NETraderToolsMED SINUS RINSE COMPLETE) mark packet with rinse device 1 Package by sinus irrigation route daily for 30 days. 30 Each 4 spironolactone (ALDACTONE) 25 mg Oral Tablet Take [...] Used Substance and Sexual Activity Alcohol use: Not Currently Alcohol/week: 6.0 oz Types: 10 Cans of beer per week Comment: A week Drug use: Never Sexual activity: Not Currently Partners: Female Social Drivers of Health Financial Resource Strain: Low Risk (10/29/2021) Received from [facility] Overall Financial Resource Strain (CARDIA) Difficulty of Paying Living Expenses: Not hard at all Food Insecurity: No Food Insecurity (10/29/2021) Received from [facility] Hunger Vital Sign Worried About Running Out of Food in the Last Year: Never true Ran Out of Food in the Last Year: Never true Transportation Needs: No Transportation Needs (10/29/2021) Received from [facility] PRAPARE - Transportation Lack of Transportation (Medical): No Lack of Transportation (Non-Medical): No Received from [facility] Family and Community Support Received from [facility] Abuse Screen Received from [facility] Housing Stability Review of Systems: The following systems were reviewed and revealed the following in addition to any already discussedin the HPI: Constitutional: Positive for activity change. Musculoskeletal: Positive for back pain, gait problem and joint swelling. Physical Examination: Vital Signs: Temp 97.7 ??F (36.5 ??C) (Forehead) Ht 6' 3 (1.905 m) Wt 267 lb (121.1 kg) BMI 33.37 kg/m?? General: Dane appears in no acute [...] subtalar joint, midtarsal joint, metatarsal phalangeal joints. Derm Exam: Hyperkeratotic lesions on the medial right hallux, submet 5 of the right foot, and distal tip of the left 2nd toe. Thicken and discolored toenails on the hallux b/l and the 2nd toe b/l. Ganglion cyst on the left 2nd toe is not as large today. Assessment: Dane Ray was seen today for Chief Complaint Patient presents with Nail Care bilateral feet Dane was seen today for nail care. Diagnoses and all orders for this visit: Right foot pain Type 2 diabetes mellitus with microalbuminuria, with long-term current use of insulin (HCC) Onychodystrophy Onychomycosis Corns and callosities Pain in toes of both feet Difficulty walking Type 2 diabetes mellitus with diabetic nephropathy, with long-term current use of insulin (HCC) Plan: 1. The patient was evaluated and treated today. 2. I recommended that he check his feet daily, always wear shoegear, and keep his blood sugar undercontrol. 3. Sharp debridement of mycotic toenails X4 and elongated toenails X6. 4. Sharp debridement of hyperkeratotic lesions X2. 5. Continue to use cream for diabetic neuropathy. 6. RTO in 3 months. Dane Alanis DPM 10/09/2024 documented in this encounter Plan of Treatment Upcoming Encounters Date Type Department Care Team (Late st Contact Info) Description 11/01/2024 12:00 PM EDT Office Visit [facility] Sirisha Michelle [address] [facility] [address] [place] [address] Oliver Wayne MD [address] [facility] [address] [facility] [place] [address] 01/02/2025 10:15 AM EST Office Visit [facility] Diabetes Harvey [address] [facility] [address] [place] [phone] Dat Onofre MD [address] [place] [address] 03/28/2025 11:15 AM EST Office Visit [facility] Nephrology [place] [address] [place] [address] Julio Silva MD [address] [place] [address] Scheduled Orders Name Type Priority Associated Diagnoses Orde r Schedule MO DEBRIDEMENT NAIL ANY METHOD 1-5 MO Charge Routine Onychodystrophy Onychomycosis Pain in toes of both feet Type 2 diabetes mellitus with diabetic nephropathy, with long-term current use of insulin (HCC) Ordered: 10/09/2024 documented as of this encounter Visit Diagnoses Diagnosis Pain in toes of both feet- Primary Right foot pain Pain in limb Type 2 diabetes mellitus with microalbuminuria, with long-term current use of insulin (HCC) Onychodystrophy Other specified disease of nail Onychomycosis Dermatophytosis of nail Corns and callosities Difficulty walking Difficulty in walking Type 2 diabetes mellitus with diabetic nephropathy, with long-term current use of insulin (HCC) documented in this encounter Additional Health Concerns Assessment Noted Time A fall risk assessment has been complete d for the patient 10/19/2023 9:50 AM EDT documented as of this encounter Care Teams Radiographer Relationship Specialty Start Date End Date Aba Espinoza MD [address] [place] [address] [place] [phone] PCP - General Family Medicine 07/27/16 Fili Sanchez MD [address] [phone] Internal Medicine-Endocrinology, Diabetes & Metabolism 04/11/14 Julio Silva MD [address] [place] [address] Physician Internal Medicine-Nephrology 04/25/24 documented as of this encounter
--- OUTSIDE RECORDS SUMMARY | 2024-10-11 11:00 | XMS_ITS ---
Author Organization [facility] Address [address] [facility] [address] [place] [id number] Care Team Providers Care Crimping Press Operator Name Role Phone Mirta Quan Primary Care Provider DeshawnMariah mooney Unavailable [phone] Allergies No Known Allergies Results Component Value Reference Range Notes P-PSA Reviewed date:10/19/2024 03:44:59 PM Interpretation: Performing Lab: Notes/Report: Test performed by [facility] [address] [place] [address] , [address], [place] [address] Fili Feng MD, Grease Machine Worker CLIA: [id number] PSA 0.81 <4.00 ng/mL Please note this is an ultrasensitive PSA assay with a lower limit of detection of 0.014 ng/mL. This test is performed by the [employer] ECLIA methodology. Values obtained with different assay methods or kits cannot be directly compared. REASON FOR VISIT check up, Needs labs with PSA, Low dose chest CT, AAA screening, & diabetic eye exam Medications Medication SIG (Take, Route, Frequency, Duration) Notes Start Date End Date Status Escitalopram Oxalate 20 MG 1 tablet Oral ly Once a day; Duration: 90 days Active Mupirocin 2 % 1 application Sound Effects Technician ally Twice a day 10/11/2024 Active Albuterol Sulfate HFA 108 (90 Base) MCG/ACT 1 puff as needed Inhalation every 4 hrs, prn Active Allopurinol 100 MG 1 tablet Orally Once a day; Duration: 90 days Active Spirometer - as directed 01/25/2024 Acti ve Jardiance 25 MG 1 tab(s) orally once a day (in the morning) Active glipiZIDE 5 MG 2 orally Two times a day Active Carvedilol 25 MG 1 tab(s) Orally 2 ti mes a day Active Spironolactone 25 MG 1 tab(s) orally once a day Active Rosuvastatin Calcium 40 MG 1 tablet Orally Once a day Active Basaglar KwikPen 100 UNIT/ML 24 units qd subcutaneously once daily Active Nitroglycerin 0.4 MG/SPRAY 1 spray(s) ball blingually every 5 minutes Active Entresto 24-26 MG 1 tab(s) Orally 2 ti mes a day Active Magnesium Oxide 400 MG 1 tab(s) orally 2 times a day Active Torsemide 10 MG 1 tablet orally once a prn Active Nexletol 180 MG 1 tablet Orally Once a day; Duration: 30 day(s) Active Ozempic (2 MG/DOSE) 8 MG/3ML as directed Subcutaneous Act anthony Aspirin 81 MG 1 tab(s) orally once a day Active rOPINIRole HCl 0.5 MG 1 tablet 1 to 3 ho urs before bedtime Orally at bedtime Active Social History Tobacco Use: Social History Observation Description Date Smoking Status WARNING: Information temporarily unavailable CURRENT TOBACCO USE: Question Answer Notes Are you a: Stopped 08/14/2016 Problems Problem Type SNOMED Code ICD Code Onset Dates Problem Status W/U Status Risk Notes Problem Cardiomyopathy (64124762) Cardiomyopathy, unspecified type (I42.9) Active confirmed Vital Signs Weight 264.6 lbs 10/11/2024 Blood pressure systolic 110 mm Hg 10/12/19 25 Blood pressure diastolic 60 mm Hg 025 Heart Rate 76 /min 10/11/2024 Height 75 in 10/11/2024 BMI 33.07 kg/m2 10/11/2024 Encounters Encounter Location Date Provider Diagnosis [facility] [address] [place], [place] [id number] 10/11/2024 Mariah Heaton History of tobacco u se Z87.891 ; Type 2 diabetes with complication E11.8 ; Cardiomyopathy, unspecified type I42.9 ; Hyperlipidemia, unspecified hyperlipidemia type E78.5 ; Screening PSA (prostate specific antigen) Z12.5 and Pilonidal cyst L05.91 Assessments Encounter Date Diagnosis (ICD Code) Assessment Notes Treatment Notes Treatment Clinical Notes Section Notes 10/11/2024 History of tobacco use (ICD-10 - Z87.891) 10/11/2024 Type 2 diabetes with complication (ICD-10 - E11.8) He just had labs done by Dr. Onofre. 10/11/2024 Cardiomyopathy, unspecified type (ICD-10 - I42.9) 10/11/2024 Hyperlipidemia, unspecified hyperlipidemia type (ICD-10 - E78.5) 10/11/2024 Screening PSA (prostate specific antigen) (ICD-10 - Z12.5) 10/11/2024 Pilonidal cyst (ICD-10 - L05.91) Plan Of Treatment Medication Medication Name Sig Start Date Stop Date Notes Mupirocin 2 % 1 application Externally Twice a day 025 Treatment Notes Assessment Notes Type 2 diabetes with complication He jus t had labs done by Dr. Onofre. Pending Test Test Name Order Date CT SCAN : CHEST, LUNG CANCER SCREENING L OW DOSE 10/11/2024 Next Appt Details Follow Up: via phone to repo rt test results, Reason: Progress Notes * AMANDA PELLETIERDOB: [birth year] (74 yo M)Acc No.[id number]:10/11/2024 Patient: AMANDA BOSTON Provider: JERALD Iniguez :1950 A ge:73 Y S ex:Male Date:10/11/2024 Address:[phone] Pcp:Mirta Quan Subjective: * Chief Complaints: * 1 . Check up. 2. Needs labs with PSA, Low dose chest CT, AAA screening, & diabetic eye exam. * HPI: H PI: Patient is here today for c heckup and labs. Pt is not fasting. He sees many specialists and has had labs done recently by Dr. Silva and Dr. Whit Onofre. He states he has had a diabetic eye exam and that his alcohol law enforcement agent has done a AAA screen..? D ermatology: c/o itching P t states he has two places on his buttock.? Pt states it hurts all the time. Pt states no fluid coming out of them . * ROS: D ERMATOLOGY: no R eder. n o H gino. G ASTROENTEROLOGY: no N ausea. n o V omiting. n o D iarrhea.? U ROLOGY: no D ifficulty urinating. n o B lood in urine. * Medical History: H ypertension, Type 2 Diabetes, [facility], Congestive Heart Failure, EF 15% in 2017, [facility], Cardiac Defibrillator, 11/2016, EF 20-25% [facility] 06/16/2016, EF 15% at [facility] 12/15/2017, Gout, 60 Year Smoking Hx, Quit 2017, CAD- [facility], EF=38% 03/02/23 [facility]. * Surgical History: D efibrillator [...] Taking Spirometer - Kit as directed , Taking Allopurinol 100 MG Tablet 1 tablet Orally Once a day , Taking Escitalopram Oxalate 20 MG Tablet 1 tablet Orally Once a day , Medication List reviewed and reconciled with the patient * Allergies: N .K.D.A. Objective: * Vitals: W t: 264.6, Temp: 97.8, BP: 110/60, HR: 76, Nurse: nara, Ht: 75, BMI:33.07. * Examination: G eneral Examination: General Appearance: N AD. H EENT: u nremarkable.?Oral cavity: n o lesions, mucosa moist and WNL, no erythema. N cullen: s upple, no lymphadenopathy. C hest: n ormal shape and expansion. H eart: R SR. L ungs: c lear to auscultation. A bdomen: b owel sounds present, soft and nontender, no organomegaly or masses. N eurologic Exam: I ntact, gait normal. S kin: c occygeal area with scaring from a previous pilonidal cyst infection, no active drainage, Dr. Quan examined as well. P eripheral pulses: n ormal (2+) bilaterally. E xtremities: t race leg edema. ? Assessment: * Assessment: 1. T ype 2 diabetes with complication - E11.8 (Primary) 2 . H istory of tobacco use - Z87.891 3 . C ardiomyopathy, unspecified type - I42.9 ?4. H yperlipidemia, unspecified hyperlipidemia type - E78.5 5 . S creening PSA (prostate specific antigen) - Z12.5 6 . P ilonidal cyst - L05.91 Plan: * Treatment: 2. H istory of tobacco use I maging: CT SCAN : CHEST, LUNG CANCER SCREENING LOW DOSE 3.?Screening PSA (prostate specific antigen)?LAB: P-PSA (Collection Date & Time - 10/11/2024 02:48 PM)* Value Reference Range P SA 0.81 <4.00 - ng/mL * Florina Mariah Greene 10/12/2024 0 1:20:17 PM EDT >Please let patient know this was normalBonnie Estrada 10/19/2024 03:44:50 PM EDT >pt informed 4.?Pilonidal cyst? Start Mupirocin Ointment, 2 %, 1 application, Externally, Twice a day, 1, Refills 1.?? * Procedure Codes: G 2211 Complex e/m visit add on, G8783 BP SCR PRFRM RCMDD DEFIND SCR INTVL, G8752 MOST RECENT SYSTOLIC BP < 140MM HG, G8754 MOST RECENT DIASTOLIC BP < 90MM HG * Follow Up: v ia phone to report test results * Images: Drawin10/11/24 [facility] Billing Information: * Visit Code: 57934 Office Visit, Est Pt., Level 4. * Procedure Codes: G2211 Complex e/m visit add on. G8783 BP SCR PRFRM RCMDD DEFIND SCR INTVL. G8752 MOST RECENT SYSTOLIC BP < 140MM HG. G8754 MOST RECENT DIASTOLIC BP < 90MM HG. * Electronic signature of JERALD Nixon on 10/26/2024 at 10:59 AM EDT Sign off status: Pending * Provider: JERALD Iniguez Date: 0 10/11/2024 Generated for Marleen galicia/Devyn/eTransmitting on: 0 10/26/2024 10:59 AM EDT History and Physical Notes * HPI (History of Present Illness) Category Sub-Category Detail Notes Category Not es Dermatology itching Pt states he has two places on his buttock. Pt states it hurts all the time. Pt states no fluid coming out of them HPI Patient is here today for checku p and labs. Pt is not fasting. He sees many specialists and has had labs done recently by Dr. Silva and Dr. Whit Onofre. He states he has had a diabetic eye exam and that his alcohol law enforcement agent has done a AAA screen. Examination Category Sub-Category Detail Notes Category Not es General Examination HEENT: unremarkable Heart: RSR Lungs: clear to auscultatio n Abdomen: bowel sounds present , soft and nontender, no organomegaly or masses Extremities: trace leg edema General Appearance: NAD Skin: coccygeal area with scaring from a previous pilonidal cyst infection, no active drainage, Dr. Quan examined as well Neurologic Exam: Intact, gait normal Neck: supple, no lymphaden opathy Oral cavity: no lesions, mucosa m oist and WNL, no erythema Peripheral pulses: normal (2+) bilatera lly Chest: normal shape and exp ansion
--- OUTSIDE RECORDS SUMMARY | 2024-10-11 11:30 | XMS_ITS | Encounter Summary ---
Author Organization [facility] Address [address] [place] [address] Care Team Providers Care Clinical Documentation Developer Name Role Phone Fili Sanchez MD Unavailable [phone] Aba Espinoza MD Primary Care Provider [phone] Julio Silva MD Unavailable Reason for Visit * Reason Comments Chronic Kidney Disease Stage 3b Encounter Details Date Type Department Care Team (Late st Contact Info) Description 10/11/2024 11:30 AM EDT Office Visit [facility] Nephrology [place] [address] [facility] [address] [place] [address] Julio Silva MD [address] [facility] [place] [address] Stage 3a chronic kidney disease (HCC) (Primary Dx); Diabetic nephropathy associated with type 2 diabetes mellitus (HCC); Diastolic congestive heart failure, unspecified HF chronicity (HCC); Chronic kidney disease-mineral and bone disorder Social History Tobacco Use Types Packs/Day [...] Sign Reading Time Taken Comments Blood Pressure 96/51 10/11/2024 11:24 AM EDT Pulse 66 10/11/2024 11:24 AM EDT Temperature - - Respiratory Rate - - Oxygen Saturation - - Inhaled Oxygen Concentration - - Weight 120.2 kg (265 lb) 10/11/2024 11:24 AM EDT Height 190.5 cm (6' 3 ) 10/11/2024 11:24 AM EDT Body Mass Index 33.12 10/11/2024 11:24 AM EDT documented in this encounter Ordered Prescriptions Prescription Sig Dispense Quantity Refills Last Filled Start Date End Date finerenone (KERENDIA) 10 mg Oral TabletIndications:D iabetic nephropathy associated with type 2 diabetes mellitus (HCC),Diastolic congestive heart failure, unspecified HF chronicity (HCC) Take 10 mg by mouth daily. 30 Tablet 11 10/11/2024 finerenone (KERENDIA) 10 mg Oral TabletIndications:D iabetic nephropathy associated with type 2 diabetes mellitus (HCC) Take 10 mg by mouth daily. 30 Tablet 11 10/11/2024 10/11/2024 documented in this encounter Progress Notes * Julio Silva MD - 10/11/2024 11:30 AM EDT Images from the original note were not included. OFFICE NOTE Referred by Lakisha Gupta APRN Reason for Consult: CKD stage 3a Chief Complaint Patient presents with Chronic Kidney Disease Stage 3b History of Present Ilness: This patient is a pleasant 73 y.o. male presented to clinic for evaluation of renal insufficiency. He has DMII since 1999. He had CABG X 5 done in 2021. Hx of ischemic cardiopathy. He denies use of NSAIDs. Denies blood in urine or foamy urine. He denies nausea, vomiitng, chest pain, weight loss, mucosal ulcer, focal weakness. No new issues. Past Medical History: Diagnosis Date Diabetes mellitus [...] Never Sexual activity: Not Currently Partners: Female Family [...] azelastine (ASTELIN) 137 mcg (0.1 %) Nasl [place], Non-Aerosol 2 Sprays in each nostril daily. [...] Capsule TAKE 1 CAPSULE BY MOUTH ONCE [id number] Capsule 1 escitalopram oxalate (LEXAPRO) 20 mg Oral Tablet Take by mouth daily. fluticasone propionate (FLONASE) 50 mcg/actuation Nasl [place], Suspension 2 Sprays by Nasal route daily. 1 Each 5 glipiZIDE (GLUCOTROL) 10 mg Oral Tablet Take 1 Tablet by mouth every morning. 90 Tablet 1 insulin glargine (LANTUS SOLOSTAR U-100 INSULIN) 100 unit/mL (3 mL) SubQ Insulin Pen Inject 24 units every day 30 mL 1 Insulin [place], Disposable, (BD PATITO 2ND GEN PEN NEEDLE) 32 gauge x 5/32 Misc Needle Use with insulin once daily 100 Each 1 magnesium oxide 400 mg magnesium Oral Capsule Take by mouth. Take 2 times daily nitroGLYCERIN (NITROLINGUAL) 400 mcg/spray TL [place], Non-Aerosol Place 1 [place] under the tongue every 5 minutes as [...] 2 MG EVERY WEEK3 mL 2 sod foaby-suhagz-hjeqpn bottle ([email or web address] SINUS RINSE COMPLETE) mark packet with rinse [...] tingling, depression, or insomnia. Physical exam: Vitals: 10/11/24 1124 BP: 96/51 BP Location: Right arm Patient Position: Sitting Pulse: 66 Weight: 265 lb (120.2 kg) Height: 6' 3 (1.905 m) Gen: Alert, oriented, not in distress HEENT: oral mucosa moist, atraumatic, sclera and conjunctiva clear Neck: Supple. 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 No depression Skin no rashes or suspicious lesions, no evidence of bleeding or bruising Database No results found for: FERRITIN Lab Results Component Value Date IRON 119 12/23/2023 Lab Results Component Value Date WBC 12.0 (H) 12/23/2023 RBC 3.99 (L) 12/23/2023 HGB 13.8 12/23/2023 HCT 41.4 12/23/2023 MCV 103.8 (H) 12/23/2023 MCH 34.6 (H) 12/23/2023 MCHC 33.3 12/23/2023 RDW 12.7 12/23/2023 PLT 165 12/23/2023 MPV 13.4 (H) 12/23/2023 Lab Results Component Value Date NA 139 10/01/2024 K 4.3 10/01/2024 CL 103 10/01/2024 CO2 23 10/01/2024 ANIONGAP 13 10/01/2024 CALCIUM 9.8 10/01/2024 GLU 120 (H) 10/01/2024 BUN 25 (H) 10/01/2024 CREATININE 1.30 10/01/2024 ALBUMIN 4.3 10/01/2024 PROT 7.0 10/01/2024 LABBILI 0.5 10/01/2024 AST 20 10/01/2024 ALT 20 10/01/2024 ALKPHOS 55 10/01/2024 GFRAFRAM 58 (L) 11/05/2020 GFRNONAFRAM 50 (L) 11/05/2020 Lab Results Component Value Date PHOS 2.7 10/01/2024 Lab Results Component Value Date CHOLESTEROL 119 05/28/2024 TRIG 157 (H) 05/28/2024 HDL 43 05/28/2024 LDLCALC 49 05/28/2024 NONHDLC 76 05/28/2024 Lab Results Component Value Date VLJK26SR 49.4 10/01/2024 Lab Results Component Value Date PTHINTACT 65.10 (H) 10/01/2024 Assessment and Plan: 1. CKD IIIa: His [...] Sr cr is around 1.4. SR cr 1.49->1.79->1.30. .On Jardiance. On Valsartan (Entresto) Encourage fluid intake. Will d/c spironolactone and start karendia. 2. BMD (bone mineral disease): PTH 93->57->65, Phos 2.7 and Vitamin D level 41.5->49. Calcium level Ok. 3. Anemia: HGB 13.8. No anemia 4. HTN: Fairly well controlled. On coreg 25 mg BID and spironolactone 25 mg daily. 5. Edema: Ask to monitor weight. 6. Ischemic cardiomyopathy: s/p CABG X5. Defibrillator. EF 34%. On coreg, jardiance, entresto, spironolactone 25 mg daily and torsemide. Changing spironolactone to karendia for CKD. 7. DMII: HGBA1C 8.0->8.8. Better control will help nephropathy. Glipizide increased. Thank you for referring patient to me. Please call me with any question. Julio Silva MD [facility] NE[facility] [address] [facility] [address] Dept: [phone] Dept Loc: [phone] Loc [facility] Nephrology documented in this encounter Plan of Treatment Upcoming Encounters Date Type Department Care Team (Late st Contact Info) Description 11/01/2024 12:00 PM EDT Office Visit [facility] [address] [facility] [address] [place] [address] Oliver Wayne MD [address] [facility] [address] [facility] [place] [address] 01/02/2025 10:15 AM EST Office Visit [facility] [address] [facility] [address] [place] [address] Dat Onofre MD [address] [place], [place] [address] 03/28/2025 11:15 AM EST Office Visit [facility] Nephrology [place] [address] [facility] [address] [place], [place] [id number] Julio Silva MD [address] [facility] [address] [place], [place] [id number] Scheduled Orders Name Type Priority Associated Diagnoses Orde r Schedule MAGNESIUM LEVEL Lab Routine Stage 3a chronic kidney disease (HCC) 1 Occurrences starting 10/11/2024 until 10/11/2025 PROTEIN/CREATININE RATIO URINE Lab Routine Stage 3a chronic kidney disease (HCC) 1 Occurrences starting 10/11/2024 until 10/11/2025 RENAL FUNCTION PANEL Lab Routine Stage 3a chronic kidney disease (HCC) 1 Occurrences starting 10/11/2024 until 10/11/2025 VITAMIN D 25 HYDROXY Lab Routine Chronic kidney disease-mineral and bone disorder 1 Occurrences starting 10/11/2024 until 10/11/2025 PARATHYROID HORMONE INTACT Lab Routine Chronic kidney disease-mineral and bone disorder 1 Occurrences starting 10/11/2024 until 10/11/2025 URINALYSIS Lab Routine Stage 3a chronic kidney disease (HCC) 1 Occurrences starting 10/11/2024 until 10/11/2025 HEPATIC FUNCTION PANEL Lab Routine Stage 3a chronic kidney disease (HCC) 1 Occurrences starting 10/11/2024 until 10/11/2025 MICROALBUMIN/CREATININE RATIO URINE Lab Routine Stage 3a chronic kidney disease (HCC) 1 Occurrences starting 10/11/2024 until 10/11/2025 documented as of this encounter Visit Diagnoses Diagnosis Stage 3a chronic kidney disease (HCC)- Primary Diabetic nephropathy associated with type 2 diabetes mellitus (HCC) Diastolic congestive heart failure, unspecified HF chronicity (HCC) Chronic kidney disease-mineral and bone disorder documented in this encounter Discontinued Medications Medication Sig Discontinue Reason Start Date End Da te spironolactone (ALDACTONE) 25 mg Oral Tablet Take 25 mg by mouth daily. Cancelled by 10/11/2024 finerenone (KERENDIA) 10 mg Oral TabletIndications:Diabeti c nephropathy associated with type 2 diabetes mellitus (HCC) Take 10 mg by mouth daily. 10/11/2024 10/11/2024 documented as of this encounter Additional Health Concerns Assessment Noted Time A fall risk assessment has been complete d for the patient 10/19/2023 9:50 AM EDT documented as of this encounter Care Teams Clinical Documentation Developer Relationship Specialty Start Date End Date Aba Espinoza MD [address] [place] [address] [place] [address] PCP - General Family Medicine 07/27/16 Fili Sanchez MD [address] [facility] [address] [place] [address] Internal Medicine-Endocrinology, Diabetes & Metabolism 04/11/14 Julio Silva MD [address] [facility] [place] [address] [place] [address] Physician Internal Medicine-Nephrology 04/25/24 documented as of this encounter
--- NOTE | 2024-10-26 10:56 | CT_ITS ---
FINAL REPORT CLINICAL HISTORY: SCREENING FORMER SMOKER QUIT 8 YEARS AGO 2PPD X 45 YEARS FINDINGS: CT CHEST LOW DOSE SCREENING HISTORY: Screening exam for lung cancer. Former smoker, 45 pack year smoking history DOSE: CTDIvol: mGy, DLP: 106.81 mGy*cm COMPARISON: None . TECHNIQUE: Axial CT without IV contrast administration using low dose protocol. This study was performed with techniques to keep radiation doses as low as reasonably achievable, (ALARA). Individualized dose reduction techniques using automated exposure control or adjustment of mA and/or kV according to the patient''s size were employed. FINDINGS: No acute lung disease is present . Small oval nodular density seen in the lateral right midlung along the minor fissure best visualized on mid image 28 of series 604. This measures less than 5 mm. This may represent an intrafissural lymph node or benign granuloma. Minimal scattered scarring is noted. No pleural or pericardial effusion is seen . No adenopathy or mass lesion is present . IMPRESSION: 1. No evidence of lung cancer LUNG RADS CATEGORY 2 RECOMMENDATION: 12 month LDCT follow up Authenticated and ERN
--- OUTSIDE RECORDS SUMMARY | 2024-10-26 10:58 | XMS_ITS | Encounter Summary ---
Author Organization Healthcare Address [address] [place] [address] Care Team Providers Care Uncrater Name Role Phone Aba Espinoza MD Primary Care Provider [phone] Heriberto Quan MD Primary Care Provider [phone] Encounter Details Date Type Department Care Team (Late st Contact Info) Description 08/25/2016 [facility] Encounter Historical [facility]TR [address] [place] [address] Provider, Rocael [address] [place] [address] Social History Tobacco Use Types Packs/Day Years Used Date Smoking Tobacco: Never Assessed Sex and Gender Information Value Date Recorded Sex Assigned at Not on file Legal Sex Male 6:27 PM EDT Gender Identity Not on file Sexual Orientation Not on file documented as of this encounter Miscellaneous Notes * Progress Notes - ProviderRocael MD - 08/25/2016 11:59 AM EDT Romana from [facility] called for pt phone number. I [...] 08/04/2016 1:20 PM EDT Per Romana at [facility], case effective date is 08/03. To list, submit clinical to be reviewed. [facility] network will be used. * Progress Notes [...] requested in Sharepoint * Progress Notes - ProviderRocael MD - 08/02/2016 1:47 PM EDT Faxed [...] on filedocumented in this encounter Care Teams Uncrater Relationship Specialty Start Date End Date Aba Espinoza MD [address] [facility] [address] [place] [address] PCP - General 06/27/20 08/23/23 Heriberto Quan MD [address] [facility] [address] [facility] [address] [place] [address] PCP - General 08/24/23 documented as of this encounter
--- OUTSIDE RECORDS SUMMARY | 2024-10-26 10:58 | XMS_ITS | Encounter Summary ---
Author Organization [place] [address] Care Team Providers Care Players Club Representative Name Role Phone Fili Sanchez MD Unavailable Aba Espinoza MD Primary Care Provider [phone] Julio Silva MD Unavailable Reason for Visit * Reason Onset Date Comments Medication Refill 10/02/2024 Encounter Details Date Type Department Care Team (Late st Contact Info) Description 10/02/[address] [facility] Physicians [facility] [address] [facility] [address] [place] [address] Dta Onofre MD [address] [place] [address] Medication Refill Social History Tobacco Use Types [...] Last Filled Start Date End Date Insulin [place], Disposable, (BD PATITO 2ND GEN PEN NEEDLE) 32 gauge x 5/32 Misc Needle Use with insulin once daily 100 Each 1 10/02/2024 documented in this encounter Miscellaneous Notes * Telephone Encounter - Lian Quick MA - 10/02/2024 12:40 PM EDT refill sent to pharmacy documented in this encounter Plan of Treatment Upcoming Encounters Date Type Department Care Team (Late st Contact Info) Description 11/01/2024 12:00 PM EDT Office Visit [facility] 40 [facility] [address] [place] [address] Oliver Wayne MD 40 [facility] [address] [facility] [place] [address] 01/02/2025 10:15 AM EST Office Visit [facility] Diabetes [place] [address] [phone] Dat Onofre MD [address] [place] [address] 03/28/2025 11:15 AM EST Office Visit [facility] Nephrology [place] [address] [facility] [address] [address] Julio Silva MD [address] [facility] [address] [email or web address] [address] [place] [address] documented as of this encounter Visit Diagnoses Not on filedocumented in this encounter Discontinued Medications Medication Sig Discontinue Reason Start Date End Da te Insulin [place], Disposable, (BD PATITO 2ND GEN PEN NEEDLE) 32 gauge x 5/32 Misc Needle Use with insulin once daily Reorder 04/02/2024 10/02/2024 documented as of this encounter Additional Health Concerns Assessment Noted Time A fall risk assessment has been complete d for the patient 10/19/2023 9:50 AM EDT documented as of this encounter Care Teams Players Club Representative Relationship Specialty Start Date End Date Aba Espinoza MD [address] [place] [address] [place] [address] PCP - General Family Medicine 07/27/16 Fili Sanchez MD [address] [facility] [address] [place] [address] Internal Medicine-Endocrinology, Diabetes & Metabolism 04/11/14 Julio Silva MD [address] [facility] [address] [place] [address] Physician Internal Medicine-Nephrology 04/25/24 documented as of this encounter
--- OUTSIDE RECORDS SUMMARY | 2024-10-26 10:58 | XMS_ITS | Patient Health Record ---
Author Organization [facility] Address [address] [facility] [address] [place] [id number] Care Team Providers Care Back Joiner Name Role Phone Mirta Quan Primary Care Provider DeshawnMariah mooney Unavailable [phone] Allergies No Known Allergies Results Component Value [...] Interpretation: Performing Lab: Notes/Report: Test performed by [facility] [address] [place] [address] , [address], [place] [address] Fili Feng MD, Boiler Repairman CLIA: [id number] Sodium 139 135-145 mmol/L Potassium 4.6 3.5-5.3 mmol/L Chloride 102 97-108 mmol/L CO2 24 22-32 mmol/L Glucose 188 65-99 mg/dL BUN 26 8-23 mg/dL Creatinine 1.56 0.70-1.30 mg/dL Calcium 9.3 8.6-10.4 mg/dL eGFR by Creatinine 47 >59 mL/min/1.73m2 X ray : ribs right Reviewed date:02/03/2024 08:33:45 AM Interpretation: Performing Lab: Notes/Report: H-COVIDPCR Reviewed date:01/19/2024 01:30:25 PM Interpretation: Performing Lab: Notes/Report: Cancel Comments FULL RESPITORY ORDERED No Is this the 1st COVID test for the patient? No Does the patient have COVID symptoms? No Is the patient employed in healthcare? No Is patient an [facility] employee? N Is patient currently hospitalized? No Is patient currently in ICU? No Date of Symptom onset Is patient a resident in a congregate care setting? No H-COVIDPANEL Reviewed date:01/19/2024 01:30:07 PM Interpretation: Performing Lab: Notes/Report: No Is this the 1st COVID test for the patient? No Does the patient have COVID symptoms? No Is the patient employed in healthcare? No Is patient an [facility] employee? N Is patient currently hospitalized? No Is patient currently in ICU? No Date of Symptom onset Is patient a resident in a congregate care setting? No ADENOQIA Not Detected NotDetected CORONAHKU1 Not Detected NotDetected GDYUQFGY55 Not Detected NotDetected [id number] Not Detected NotDetected UNLVVLK23 Not Detected NotDetected METAPNEUMO Not Detected NotDetected RHINOENTER Not Detected NotDetected INFLUAPCR Not Detected NotDetected FLUAH1 Not Detected NotDetected [id number] Not Detected NotDetected INFLUAH3 Not Detected NotDetected INFLUB Not Detected NotDetected PARAINFLU1 Not Detected NotDetected PARAINFLU2 Not Detected NotDetected PARAINFLU3 Not Detected NotDetected PARAINFLU 4 Not Detected NotDetected RSVPCR Not Detected NotDetected COVIDHMH Not Detected NotDetected Effective 10/07/20, Positive covid results will no longer be called to the ordering physician. Infection control and the physician?s office will continue to report positive covid results to the local Health Department as required. This assay is for in vitro diagnostic use under FDA Emergency Use Authorization only. Negative results do not preclude infection with SARS CoV 2 virus and should not be the sole basis of a patient treatment/management or public health decision. Follow up testing should be performed according to the current CDC recommendations. BORDPERT Not Detected NotDetected CHLAMYDPNEUM Not Detected NotDetected MYCOPLASM Not Detected NotDetected P-PSA Reviewed date:10/19/2024 03:44:59 PM Interpretation: Performing Lab: Notes/Report: Test performed by [facility] [address] [place] [address] , [place] [address] Fili Feng MD, Boiler Repairman CLIA: [id number] PSA 0.81 <4.00 ng/mL Please note this is an ultrasensitive PSA assay with a lower limit of detection of 0.014 ng/mL. This test is performed by the [employer] ECLIA methodology. Values obtained with different assay methods or kits cannot be directly compared. CXR Reviewed date:01/20/2024 01:07:17 PM Interpretation: Performing Lab: Notes/Report: X ray : Spine, thoracic spin e Reviewed date:01/20/2024 01:07:17 PM Interpretation: Performing Lab: Notes/Report: X ray : Shoulder, right Reviewed date:01/20/2024 01:07:16 PM Interpretation: Performing Lab: Notes/Report: P-Culture, Respiratory Reviewed date:01/25/2024 12:57:31 PM Interpretation:Normal Performing Lab: Notes/Report: Test performed by [facility] [address] [place] [address] , [address], [place] [address] Fili Feng MD, Boiler Repairman CLIA: [id number] Specimen Source Sputum - Lungs Culture, Respiratory See Below Preliminary Report : Upper respiratory bacteria, reincubate Final Report : Heavy growth of Normal Respiratory antonio Final Report : No Further testing indicated COVID 19- Full Respiratory P ryan with COVID Reviewed date:01/23/2024 09:57:29 AM Interpretation: Performing Lab: Notes/Report: CBC Fingerstick (in house) Reviewed date:01/18/2024 03:52:11 PM Interpretation: Performing Lab: Notes/Report: wbc 20.8 3.5 - 10 lym 36.9% 15 - 50 mid 6.4% 2 - 15 gran 56.7% 35 - 80 rbc 4.41 3.5 - 5.5 hgb 14.9 11.5 - 16.5 hct 45.2 35 - 55 mcv 102.6 75 - 100 mch 33.7 25 - 35 mchc 32.9 31 - 38 plat 147 100 - 400 P-Lipid Panel Reviewed date:01/10/2024 03:44:57 PM Interpretation:chol 217, trigs 379, hdl 38, chol/hdl 5.71, non-hdl 179 Performing Lab: Notes/Report: Test performed by [facility], [address] , [address], [place] [address] Fili Feng MD, Boiler Repairman CLIA: [id number] Cholesterol 217 <200 mg/dL Triglycerides 379 <150 [...] Results: 103 Units: mg/dL % Change: - P-CPK Reviewed date:01/10/2024 03:44:57 PM Interpretation:Normal Performing Lab: Notes/Report: Test performed by [facility] [address] , [address], [place] [address] Fili Feng MD, Boiler Repairman CLIA: [id number] Creatine Kinase 196 20-200 U/L P-Comprehensive Metabolic Pa clotilde ([facility]) Reviewed date:01/10/2024 03:44:57 PM Interpretation:gluc 127, bun 31, Cr 1.54, gfr 48 Performing Lab: Notes/Report: Test performed by [facility] [address] [place] [address] , [address], [place] [address] Fili Feng MD, Boiler Repairman CLIA: [id number] Sodium 138 135-145 mmol/L Potassium 4.5 3.5-5.3 [...] 0.3 <0.2-1.2 mg/dL A/G Ratio 1.8 1.1-2.5 Glycohemoglobin A1c (in hous e) Reviewed date:01/06/2024 10:28:42 AM Interpretation:8.0% Performing Lab: Notes/Report: 8.0% glycohemoglobin 8.0% 5 - 6.5 % CBC Fingerstick (in house) Reviewed date:01/25/2024 12:51:01 [...] - 38 plat 194 100 - 400 Gram Stain Reviewed date:01/25/2024 12:57:53 PM Interpretation: Performing Lab: Notes/Report: Test performed by [facility] [address] [place] [address] , [address], [place] [address] Fili Feng MD, Boiler Repairman CLIA: [id number] Specimen Source Sputum - Lungs Gram Stain See Below Moderate Polymorphonuclear leukocytes Few Gram Positive Cocci In pairs Many Gram Negative Rods Q3 - Very good quality Moderate Polymorphonuclear leukocytes Few Gram Positive Cocci In pairs Many Gram Negative Rods Q3 - Very good quality Gram Stain See Below Moderate Polymorphonuclear leukocytes Few Gram Positive Cocci In pairs Many Gram Negative Rods Q3 - Very good quality Moderate Polymorphonuclear leukocytes Few Gram Positive Cocci In pairs Many Gram Negative Rods Q3 - Very good quality Reason For Referral No Information Medications Medication SIG (Take, Route, Frequency, Duration) Notes Start Date End Date Status Basaglar KwikPen 100 UNIT/ML 24 units qd subcutaneously once daily Active Nitroglycerin 0.4 MG/SPRAY 1 spray(s) ball blingually every 5 minutes Active Escitalopram Oxalate 20 MG 1 tablet Oral ly Once a day; Duration: 90 days Active Jardiance 25 MG 1 tab(s) orally once a day (in the morning) Active Entresto 24-26 MG 1 tab(s) Orally 2 ti mes a day Active glipiZIDE 5 MG 2 orally Two times a day Active Carvedilol 25 MG 1 tab(s) Orally 2 ti mes a day Active Spironolactone 25 MG 1 tab(s) orally once a day Active Nexletol 180 MG 1 tablet Orally Once a day; Duration: 30 day(s) Active Ozempic (2 MG/DOSE) 8 MG/3ML as directed Subcutaneous Act anthony Aspirin 81 MG 1 tab(s) orally once a day Active Albuterol Sulfate HFA 108 (90 Base) MCG/ACT 1 puff as needed Inhalation every 4 hrs, prn Active rOPINIRole HCl 0.5 MG 1 tablet 1 to 3 ho urs before bedtime Orally at bedtime Active Rosuvastatin Calcium 40 MG 1 tablet Orally Once a day Active Magnesium Oxide 400 MG 1 tab(s) orally 2 times a day Active Allopurinol 100 MG 1 tablet Orally Once a day; Duration: 90 days Active Torsemide 10 MG 1 tablet orally once a prn Active Spirometer - as directed 01/25/2024 Acti ve Mupirocin 2 % 1 application Senior Materials Scientist ally Twice a day 10/11/2024 Active Immunizations Vaccine Route Administration Date Status Comme nts [...] Unknown 02/06/2020 Administered Varivax Unknown 02/06/2020 Administered Social History Tobacco Use: Social History Observation Description Date Smoking Status WARNING: Information temporarily unavailable CURRENT TOBACCO USE: Question Answer Notes Are you a: Stopped 08/14/2016 Problems Problem Type SNOMED Code ICD Code Onset Dates Problem Status W/U Status Risk Notes Problem Cardiomegaly (9355938) Cardiomegaly (I51.7) Active confirmed Problem Mixed hyperlipidemia (510515429) Mixed hyperlipidemia (E78.2) Active confirmed Problem Ischemic cardiomyopathy (255590218) Ischemic cardiomyopathy (I25.5) Active confirmed Problem Inflammatory and toxic neuropathy (967444117) Peripheral polyneuropathy (G62.9) Active confirmed Problem Hyperlipidaemia (17004671) Hyperlipidemia, unspecified hyperlipidemia type (E78.5) Active confirmed Problem Heart failure (37410006) Congestive heart failure, unspecified congestive heart failure chronicity, unspecified congestive heart failure type (I50.9) Active confirmed Problem Type II diabetes mellitus without complication (068175657) Type 2 diabetes mellitus without complication, without long-term current use of insulin (E11.9) Active confirmed Problem Gout (64107718) Gout involving toe of right foot, unspecified cause, unspecified chronicity (M10.9) Active confirmed Problem Non-traumatic rhabdomyolysis (380814079) Non-traumatic rhabdomyolysis (M62.82) Active confirmed Problem Benign prostatic hypertrophy without outflow obstruction (922919257) Benign prostatic hyperplasia without lower urinary tract symptoms (N40.0) Active confirmed Problem Cardiomyopathy (09650975) Cardiomyopathy, unspecified type (I42.9) Active confirmed Problem Chronic obstructive pulmonary disease (32270900) 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) Active confirmed Problem Chronic kidney disease stage 3A (073070284) Stage 3a chronic kidney disease (N18.31) Active confirmed Problem 3-Mpirhnm-7-methyl glutaryl coenzyme A reductase inhibitor adverse reaction (disorder) (166983774) Adverse reaction to statin medication (T46.6X5A) Active confirmed Problem History of coronary artery bypass grafting (860624755) 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) Active confirmed Problem Chronic systolic heart failure (978281370) Systolic CHF, chronic (I50.22) Active confirmed Problem Disorder due to type 2 diabetes mellitus (272052519) Type 2 diabetes with complication (E11.8) Active confirmed Vital Signs Heart Rate 76 /min 10/11/2024 Blood pressure diastolic 60 mm Hg 10/11/2024 Height 75 in 10/11/2024 Blood pressure systolic 110 mm Hg 10/11/2024 Weight 264.6 lbs 10/11/2024 BMI 33.07 kg/m2 10/11/2024 Encounters Encounter Location Date Provider Diagnosis [facility] [address] [facility] [address] [place] [id number] 01/05/2024 Mirta Quan Type 2 diabetes rosetta itus without complication, without long-term current use of insulin E11.9 ; Systolic CHF, chronic I50.22 ; Type 2 diabetes with complication E11.8 ; Peripheral polyneuropathy G62.9 ; Adverse reaction to statin medication T46.6X5A and Hyperlipidemia, unspecified hyperlipidemia type E78.5 [facility] [address] [place], [place] [id number] 01/18/2024 Mariah Crowvinicio Chest wall pain R07. 89 ; Pain, joint, shoulder, right M25.511 ; Acute midline thoracic back pain M54.6 ; Wheezing R06.2 and Bilateral rales R09.89 [facility] [address] [facility] [address] [place] [id number] 01/25/2024 Mariahvira Heaton Wheezing R06.2 ; Anum sed fracture of multiple ribs of right side with routine healing, subsequent encounter S22.41XD ; Bilateral rales R09.89 and Hypotension, unspecified hypotension type I95.9 [facility] [address] [facility] [address] [place] [id number] 02/02/2024 Mariah Florina Wheezing R06.2 ; Anum sed fracture of multiple ribs of right side with routine healing, subsequent encounter S22.41XD ; Bilateral rales R09.89 ; Hypotension, unspecified hypotension type I95.9 and Renal insufficiency N28.9 [facility] [address] [facility] [address] [place] [id number] 03/05/2024 Mirta Quan Type 2 diabetes with complication E11.8 ; Systolic CHF, chronic I50.22 ; Mixed hyperlipidemia E78.2 and Stage 3a chronic kidney disease N18.31 [facility] [address] [facility] [address] [place] [id number] 10/11/2024 Mariah Heaton History of tobacco u se Z87.891 ; Type 2 diabetes with complication E11.8 ; Cardiomyopathy, unspecified type I42.9 ; Hyperlipidemia, unspecified hyperlipidemia type E78.5 ; Screening PSA (prostate specific antigen) Z12.5 and Pilonidal cyst L05.91 [facility] [address] [facility] [address] [place], [place] [id number] 10/12/2024 Mariah Heaton [facility] [address] [facility] [address] [place], [place] [id number] 12/23/2023 [facility] Quan [facility] [address] [facility] [address] [place] [id number] 01/10/2024 Mirta Quan [facility] [address] [place], [place] [id number] 01/19/2024 Mariah Heaton [facility] [address] [place], [place] [id number] 01/20/2024 Mariah Heaton [facility] [address] [place], [place] [id number] 02/03/2024 Mariah Heaton [facility] [address] [place], [place] [id number] 05/03/2024 Mirta Quan [facility] [address] [place], [place] [id number] 08/03/2024 Mirta Quan Assessments Encounter Date Diagnosis (ICD Code) Assessment Notes Treatment Notes Treatment Clinical Notes Section Notes 01/05/2024 Type 2 diabetes mellitus without complication, without long-term current use of insulin (ICD-10 - E11.9) 01/05/2024 Systolic CHF, chronic (ICD-10 - I50.22) 01/18/2024 Chest wall pain (ICD-10 - R07.89) 01/18/2024 Pain, joint, shoulder, right (ICD-10 - M25.511) 01/25/2024 Wheezing (ICD-10 - R06.2) WBC has improved but is still abnormal. Will add cefdinir. 01/25/2024 Closed fracture of multiple ribs of right side with routine healing, subsequent encounter (ICD-10 - S22.41XD) Will repeat x-ray next week. 02/02/2024 Wheezing (ICD-10 - R06.2) Resolved. 03/05/2024 Systolic CHF, chronic (ICD-10 - I50.22) 03/05/2024 Type 2 diabetes with complication (ICD-10 - E11.8) Sees nephrology next month, Dr. Silva 10/11/2024 History of tobacco use (ICD-10 - Z87.891) 10/11/2024 Type 2 diabetes with complication (ICD-10 - E11.8) He just had labs done by Dr. Onofre. 10/11/2024 Cardiomyopathy, unspecified type (ICD-10 - I42.9) 02/02/2024 Closed fracture of multiple ribs of right side with routine healing, subsequent encounter (ICD-10 - S22.41XD) Will repeat x-ray. 02/02/2024 Bilateral rales (ICD-10 - R09.89) Resolved 03/05/2024 Mixed hyperlipidemia (ICD-10 - E78.2) 01/25/2024 Bilateral rales (ICD-10 - R09.89) Improving. 01/18/2024 Acute midline thoracic back pain (ICD-10 - M54.6) 01/05/2024 Type 2 diabetes with complication (ICD-10 - E11.8) 01/05/2024 Peripheral polyneuropathy (ICD-10 - G62.9) 01/18/2024 Wheezing (ICD-10 - R06.2) 01/25/2024 Hypotension, unspecified hypotension type (ICD-10 - I95.9) Will go back to taking the torsemide MWF rather than daily. Will monitor BP. 03/05/2024 Stage 3a chronic kidney disease (ICD-10 - N18.31) 02/02/2024 Hypotension, unspecified hypotension type (ICD-10 - I95.9) Improved. 10/11/2024 Hyperlipidemia, unspecified hyperlipidemia type (ICD-10 - E78.5) 10/11/2024 Screening PSA (prostate specific antigen) (ICD-10 - Z12.5) 02/02/2024 Renal insufficiency (ICD-10 - N28.9) 01/18/2024 Bilateral rales (ICD-10 - R09.89) 01/05/2024 Adverse reaction to statin medication (ICD-10 - T46.6X5A) 01/05/2024 Hyperlipidemia, unspecified hyperlipidemia type (ICD-10 - E78.5) 10/11/2024 Pilonidal cyst (ICD-10 - L05.91) Plan Of Treatment Pending Test Test Name Order Date Ultrasound : Aorta 06/30/2023 CT Scan : Chest, low dose 06/30/2023 CT SCAN : CHEST, LUNG CANCER SCREENING L OW DOSE 10/11/2024 Insurance Providers Payer Name Payer Address Payer Phone Subscriber Number Group Number Insured Name Patient Relationship to Insured Coverage Start Date Coverage End Date MEDICARE PART B [id number] [place] [id number] [phone] [id number] AMANDA BAJWA Self - patient is the insured [employer] [address] [address] [place] [address] [phone] [id number] AMANDA BAJWA Self - patient is the insured Medical (General) History Medical History History ICD Code Hypertension Type 2 Diabetes, [facility] Congestive Heart Failure, EF 15% in 2017 , [facility] Cardiac Defibrillator, 11/2016 EF 20-25% [facility] 06/16/2016 EF 15% at [facility] 12/15/2017 Gout 61 Year Smoking Hx, Quit 2016 CAD- [facility] EF=38% 03/02/23 [facility] Surgical History Surgery Date(Month/Year) Defibrillator Placement 12/2016 Colonoscopy 2018 Hospitalization History Reason Date(Month/Year)
--- OUTSIDE RECORDS SUMMARY | 2024-10-26 10:58 | XMS_ITS | Encounter Summary ---
Author Organization Healthcare Address [address] [place] [address] Care Team Providers Care Biology Manager Name Role Phone Aba Espinoza MD Primary Care Provider + [phone] Heriberto Quan MD Primary Care Provider [phone] Encounter Details Date Type Department Care Team ([facility] st Contact Info) Description 07/01/2023 Orders Only External Location [address] [place] [address] Provider, External Social History Tobacco Use Types [...] on filedocumented in this encounter Care Teams Biology Manager Relationship Specialty Start Date End Date Aba Espinoza MD [address] [place] [address] PCP - General 06/27/20 08/23/23 Heriberto Quan MD [address] [facility] [place] [address] PCP - General 08/24/23 documented as of this encounter
--- OUTSIDE RECORDS SUMMARY | 2024-10-26 10:58 | XMS_ITS | Clinical Summary ---
Author Organization [facility] Address [address] [place] [address] Care Team Providers Care Fund Controller Name Role Phone Heriberto Quan MD Primary Care Provider [phone] Allergies Active Allergy Reactions Criticality Noted Date [...] time each day. Active ergocalciferol 1.25 MG (39595 UT) capsule Take 1 capsule (50,000 Units) [...] knee pain 150 g 1 09/15/2023 Active Family History Medical History Relation Name Comments [...] Last Done Comments [facility]-Hepatitis C Screening 1950 [facility]-Medicare Annual Wellness (AWV) 1950 [facility]-Infant/Child/Adol SDOH Screenings 1950 [facility]- SDOH Screenings 10/21/1969 [facility]-Adult SDOH Screenings 10/21/1969 CT Colonography 10/21/1996 Colonoscopy 10/21/1996 FIT-DNA 10/21/1996 FIT 10/21/1996 FOBT 10/21/1996 Sigmoidoscopy 10/21/1996 [facility]-Colorectal Cancer Screening 10/21/1996 [facility]-RSV Vaccine: 60+ Years or (1 - Risk 60-74 years 1-dose series) 2011 [facility]-Depression Screening 09/28/2024 09/29/2023 [id number]-[id number] Vaccine (4 - 2024- season) 2024 12/30/2020, 03/18/2020, 02/20/2020 [facility]-Influenza Vaccine (#1) 10/15/202410/12, 10/12/2021, 12/31/2020, Additional history exists [facility]-DTaP,Tdap,and Td Vaccines (2 - Td or Tdap) 02/06/2030 02/07/2020 [facility]-Hepatitis A Vaccines Aged Out 03/10/2018 No longer eligible based on patient's age to complete this topic [facility]-Zoster Vaccines Completed 04/15/2020, 02/07/2020, 02/06/2020 [facility]-Pneumococcal Vaccine: 50+ Years Completed 02/04/2022, 01/24/2020, 12/07/2016 [facility]-Obesity Intervention Completed 024, 09/29/2023, 09/15/2023 HPV Vaccines Aged Out No longer eligi ble based on patient's age to complete this topic [facility]-HIB Vaccines Aged Out No longer e ligible based on patient's age to complete this topic [facility]-IPV Vaccines Aged Out No longer e ligible based on patient's age to complete this topic [facility]-Rotavirus Vaccines Aged Out No lo nger eligible based on patient's age to complete this topic [place] [address] [employer] Care Teams Fund Controller Relationship Specialty Start Date End Date Heriberto Quan MD [address] [place] [address] PCP - General 08/24/23
--- OUTSIDE RECORDS SUMMARY | 2024-10-26 10:59 | XMS_ITS | Clinical Summary ---
Author Organization [facility] Address [address] [place] [address] Care Team Providers Care Nurse Aide Name Role Phone Aba Espinoza MD Primary Care Provider + [phone] Allergies Active Allergy Reactions Criticality Noted Date [...] 0.5 MG tabletIndicatio ns:Restless legs syndrome (RLS) Take 1 tablet by mouth Every Night. 30 tablet 11 5 Active Active Problems Problem Noted Date Diagnosed [...] Male erectile disorder 04/11/2014 Dyslipidemia 04/11/2014 Immunizations Immunization Administration Dates Next Due Fluzone High-Dose 65+YRS 11/14/2018,12/15/2017,1 Hepatitis A 03/10/2018 Influenza, Unspecified 09/29/2019 Pneumococcal Polysaccharide (PPSV23) 12/07/2016 Family History Medical History Relation Name Comments Diabetes Father Victorino nightingale Heart disease Father Victorino nightingale Hypertension Father Victorino nightingale Heart attack Mother [...] 74 11/25/2021 10:34 AM EDT Temperature 36.3 C (97.3 F) 05/04/2021 10:46 AM EDT Respiratory Rate 16 05/04/2021 9:11 AM EDT Oxygen Saturation 99% 11/25/2021 10:34 AM EDT Inhaled Oxygen Concentration - - Weight 122 kg (269 lb) 07/03/2024 9:00 AM EDT Height 190.5 cm (6' 3 ) 07/03/2024 9:00 AM EDT Body Mass Index 33.62 07/03/2024 9:00 AM EDT Plan of Treatment Upcoming Encounters Date Type Department Care Team (Late st Contact Info) Description 11/05/2024 10:00 AM EDT Telemedicine [facility]EP [facility] [address] [facility] [address] [place] [address] Rosalino Tom, FLIGHT ATTENDANT [employer] [address] [place] [address] Health Maintenance Due Date Last Done Comments DIABETIC FOOT EXAM 10/21/1961 COLOGUARD 10/21/1996 COLON CANCER SCREENING 5 YEA R SIGMOIDOSCOPY 10/21/1996 CT COLONOGRAPHY 10/21/1996 FECAL OCCULT BLOOD TEST 10/21/1996 FIT Testing (1 year) 10/21/1996 ANNUAL WELLNESS VISIT 07/05/2016 HEPATITIS C SCREENING 07/05/2016 AAA SCREEN ONCE 10/21/2016 DIABETIC EYE EXAM 10/10/2019 10/09/2018, 07/04/2017 COVID-19 Vaccine (2024-03 6 season) 2024 12/30/2020, 03/18/2020, 02/20/2020 INFLUENZA VACCINE 11/14/2024 10/13/2023, , 02/04/2022, Additional history exists HEMOGLOBIN A1C 11/27/2024 05/28/2024, 01/14, 05/30/2023, Additional history exists LIPID PANEL 05/28/2025 05/28/2024, 05/15, 10/27/2022, Additional history exists URINE MICROALBUMIN-CREATININ E RATIO (uACR) 05/28/2025 05/28/2024, 12/23/2023, 10/11/2023, Additional history exists TDAP/TD VACCINES (2 - Td or Tdap) 02/06/2030 020 COLONOSCOPY 05/05/2031 05/04/2021, 07/18/2017 COLORECTAL CANCER SCREENING 05/05/2031 ZOSTER VACCINE Completed 04/15/2020, 02/07/2020 Pneumococcal Vaccine 50+ Completed 022, 01/24/2020, 12/07/2016 Medical Devices Implanted Type Area Telephone Service Representative Device Identifier Shelf Expiration Date Model / Serial / Lot Pacemaker-12/06 Implanted:12/06 (Quantity not on file) Pacemaker [id number] / / Description:place Nov 2016 vira casillas [facility], Dr. Lj Acevedo Insurance MEDICARE A & B [facility] SUP Advance Directives * Full Code (Latest Code Status on File) Date Activated Date Inactivated Comments 07/05/2016 5:25 PM 07/07/2016 6:46 PM Question Answer Comments Level Of Support Discussed With: Patient Care Teams Nurse Aide Relationship Specialty Start Date End Date Aba Espinoza MD [address] [facility] [address] [facility] [address] [place] [address] PCP - General Family Medicine 02/17/18
--- OUTSIDE RECORDS SUMMARY | 2024-10-26 10:59 | XMS_ITS | Encounter Summary ---
Author Organization [place] [address] Care Team Providers Care Bulk Pigment Reducer Name Role Phone Fili Sanchez MD Unavailable [phone] Aba Espinoza MD Primary Care Provider [phone] Julio Silva MD Unavailable Reason for Visit * Reason Onset Date Comments Research 10/03/2024 Encounter Details Date Type Department Care Team (Late st Contact Info) Description 10/03/2024 Telephone [facility] [address] [place] [id number] Jennifer Wyman, RN Research Social History Tobacco Use Types Packs/Day Years [...] encounter Miscellaneous Notes * Telephone Encounter - Jennifer Wyman, RN - 10/03/2024 11:35 AM EDT Contacted Dane regarding research opportunity. Information sent to verified email address. documented in this encounter Plan of Treatment Upcoming Encounters Date Type Department Care Team (Late st Contact Info) Description 11/01/2024 12:00 PM EDT Office Visit [facility] 40 [facility] 101 [place] [address] Oliver Wayne MD 40 [facility] 101 [facility] [place], [place] [address] 01/02/2025 10:15 AM EST Office Visit [facility] [address] [address] Dat Onofre MD [address] [place], [place] [address] 03/28/2025 11:15 AM EST Office Visit [facility] Nephrology [place] [address] [facility] [address] [address] Julio Silva MD 830 [facility] 202 [place] [address] documented as of this encounter Visit Diagnoses Not on filedocumented in this encounter Additional Health Concerns Assessment Noted Time A fall risk assessment has been complete d for the patient 10/19/2023 9:50 AM EDT documented as of this encounter Care Teams Bulk Pigment Reducer Relationship Specialty Start Date End Date Aba Espinoza MD [address] [place] [phone] PCP - General Family Medicine 07/27/16 Fili Sanchez MD [address] [address] Internal Medicine-Endocrinology, Diabetes & Metabolism 04/11/14 Julio Silva MD 830 [place] [address] Physician Internal Medicine-Nephrology 04/25/24 documented as of this encounter
--- OUTSIDE RECORDS SUMMARY | 2024-10-26 10:59 | XMS_ITS ---
Author Organization Unknown Medications Date Medication Dosage DosageUnit StartDate StopDate StopReason Active DoseQuantity DoseUnit Dispense DispenseUnit Refills NdcCode DrugCode PharmacyId IsPrescription MappedMedication Srcstatus Custom 03/05 00:00 :00 Albuterol Sulfate HFA 108 (90 Base) MCG/ACT Aerosol Solution 1 [id number] 287 P Taking 02/01 00:00 :00 Albuterol Sulfate HFA 108 (90 Base) MCG/ACT Aerosol Solution 1 [id number] 287 P Taking 01/24 00:00 :00 Albuterol Sulfate HFA 108 (90 Base) MCG/ACT Aerosol Solution 1 [id number] 287 P Continue 01/24 00:00 :00 Albuterol Sulfate HFA 108 (90 Base) MCG/ACT Aerosol Solution 01/18/2024 00:00:00 1 1 1 [id number] 4 287 P Taking 01/17 00:00 :00 Albuterol Sulfate HFA 108 (90 Base) MCG/ACT Aerosol Solution 01/18/2024 00:00:00 1 1 1 [id number] 4 287 P Start 08/28 00:00 :00 Allopurinol 100 MG Tablet 1 90 Tablet 0 [id number] 901 Start 08/28 00:00 :00 Allopurinol 100 MG Tablet 0 90 Tablet 0 [id number] 901 Stop 06/18 00:00 :00 Allopurinol 100 MG Tablet 1 90 Tablet 0 [id number] 901 Start 06/18 00:00 :00 Allopurinol 100 MG Tablet 0 90 Tablet 0 [id number] 901 Stop 05/03 00:00 :00 Allopurinol 100 MG Tablet 1 90 Tablet 0 [id number] 901 P Unknown Status 03/19 00:00 :00 Allopurinol 100 MG Tablet 1 90 Tablet 0 [id number] 901 Start 03/19 00:00 :00 Allopurinol 100 MG Tablet 0 90 Tablet 0 [id number] 532 Stop 03/05 00:00 :00 Allopurinol 100 MG Tablet 1 90 Tablet 0 [id number] 532 P Taking 02/01 00:00 :00 Allopurinol 100 MG Tablet 1 90 Tablet 0 [id number] 532 P Taking 01/24 00:00 :00 Allopurinol 100 MG Tablet 1 90 Tablet 0 [id number] 532 P Taking 01/17 00:00 :00 Allopurinol 100 MG Tablet 1 90 Tablet 0 [id number] 532 P Taking 01/04 00:00 :00 Allopurinol 100 MG Tablet 1 90 Tablet 0 [id number] 532 P Taking 12/22 00:00 :00 Allopurinol 100 MG Tablet 1 90 Tablet 0 [id number] 532 P Unknown Status 11/17 00:00 :00 Allopurinol 100 MG Tablet 1 30 Tablet 0 [id number] 532 Start 11/17 00:00 :00 Allopurinol 100 MG Tablet 0 90 Tablet 1 [id number] 532 Stop 03/05 00:00 :00 Aspirin 81 MG Tablet Delayed Release 1 [id number] 474 Taking 02/01 00:00 :00 Aspirin 81 MG Tablet Delayed Release 1 [id number] 474 Taking 01/24 00:00 :00 Aspirin 81 MG Tablet Delayed Release 1 [id number] 474 Taking 01/17 00:00 :00 Aspirin 81 MG Tablet Delayed Release 1 [id number] 474 Taking 01/04 00:00 :00 Aspirin 81 MG Tablet Delayed Release 1 [id number] 474 Taking 03/05 00:00 :00 Basaglar KwikPen 100 UNIT/ML Solution Pen-injecto r 1 [id number] 501 Taking 02/01 00:00 :00 Basaglar KwikPen 100 UNIT/ML Solution Pen-injecto r 1 [id number] 501 Taking 01/24 00:00 :00 Basaglar KwikPen 100 UNIT/ML Solution Pen-injecto r 1 [id number] 501 Taking 01/17 00:00 :00 Basaglar KwikPen 100 UNIT/ML Solution Pen-injecto r 1 [id number] 501 Taking 01/04 00:00 :00 Basaglar KwikPen 100 UNIT/ML Solution Pen-injecto r 1 [id number] 501 Taking 03/05 00:00 :00 Carvedilol 25 MG Tablet 1 194601 29 601 Taking 02/01 00:00 :00 Carvedilol 25 MG Tablet 1 [id number] 29 601 Taking 01/24 00:00 :00 Carvedilol 25 MG Tablet 1 795557 29 601 Taking 01/17 00:00 :00 Carvedilol 25 MG Tablet 1 785052 29 601 Taking 01/04 00:00 :00 Carvedilol 25 MG Tablet 1 197595 29 601 Taking 01/24 00:00 :00 Cefdinir 300 MG Capsule 01/25/2024 00:00:00 1 14 Capsule 0 [id number] 006 P Start 03/05 00:00 :00 Entresto 24-26 MG Tablet 1 [id number] 920 Taking 02/01 00:00 :00 Entresto 24-26 MG Tablet 1 [id number] 920 Taking 01/24 00:00 :00 Entresto 24-26 MG Tablet 1 [id number] 920 Taking 01/17 00:00 :00 Entresto 24-26 MG Tablet 1 [id number] 920 Taking 01/04 00:00 :00 Entresto 24-26 MG Tablet 1 [id number] 920 Taking 08/06 00:00 :00 Escitalopra m Oxalate 20 MG Tablet 1 90 Tablet 0 [id number] 701 Start 08/06 00:00 :00 Escitalopra m Oxalate 20 MG Tablet 0 90 Tablet 0 [id number] 701 Stop 08/03 00:00 :00 Escitalopra m Oxalate 20 MG Tablet 1 90 Tablet 0 [id number] 701 P Unknown Status 05/03 00:00 :00 Escitalopra m Oxalate 20 MG Tablet 1 90 Tablet 0 [id number] 701 P Unknown Status 01/24 00:00 :00 Escitalopra m Oxalate 20 MG Tablet 0 90 Tablet 1 [id number] 701 Not Taking 01/17 00:00 :00 Escitalopra m Oxalate 20 MG Tablet 0 90 Tablet 1 [id number] 701 Not Taking 01/04 00:00 :00 Escitalopra m Oxalate 20 MG Tablet 0 90 Tablet 1 [id number] 701 Not Taking 12/20 00:00 :00 Escitalopra m Oxalate 20 MG Tablet 1 90 Tablet 1 [id number] 701 Start 12/20 00:00 :00 Escitalopra m Oxalate 20 MG Tablet 0 90 Tablet 0 [id number] 701 Stop 11/04 00:00 :00 Escitalopra m Oxalate 20 MG Tablet 1 90 Tablet 0 [id number] 701 Start 11/04 00:00 :00 Escitalopra m Oxalate 20 MG Tablet 0 90 1 009 74325 761 Stop 03/05 00:00 :00 glipiZIDE 5 MG Tablet 1 [id number] 501 Taking 02/01 00:00 :00 glipiZIDE 5 MG Tablet 1 [id number] 501 Taking 01/24 00:00 :00 glipiZIDE 5 MG Tablet 1 [id number] 501 Taking 01/17 00:00 :00 glipiZIDE 5 MG Tablet 1 [id number] 501 Taking 01/04 00:00 :00 glipiZIDE 5 MG Tablet 1 [id number] 501 Taking 03/05 00:00 :00 Jardiance 25 MG Tablet 1 [id number] 5 307 Taking 02/01 00:00 :00 Jardiance 25 MG Tablet 1 [id number] 5 307 Taking 01/24 00:00 :00 Jardiance 25 MG Tablet 1 5448815 5 307 Taking 01/17 00:00 :00 Jardiance 25 MG Tablet 1 5856074 5 307 Taking 01/04 00:00 :00 Jardiance 25 MG Tablet 1 [id number] 5 307 Taking 03/05 00:00 :00 Magnesium Oxide 400 MG Tablet 1 417482 20 922 Taking 02/01 00:00 :00 Magnesium Oxide 400 MG Tablet 1 319298 20 922 Taking 01/24 00:00 :00 Magnesium Oxide 400 MG Tablet 1 144982 20 922 Taking 01/17 00:00 :00 Magnesium Oxide 400 MG Tablet 1 443505 20 922 Taking 01/04 00:00 :00 Magnesium Oxide 400 MG Tablet 1 518554 20 922 Taking 03/05 00:00 :00 Nexletol 180 MG Tablet 1 30 [id number] 1 803 Taking 02/01 00:00 :00 Nexletol 180 MG Tablet 1 30 [id number] 1 803 Taking 01/24 00:00 :00 Nexletol 180 MG Tablet 1 30 7761688 1 803 Taking 01/17 00:00 :00 Nexletol 180 MG Tablet 1 30 1398751 1 803 Taking 01/04 00:00 :00 Nexletol 180 MG Tablet 1 30 [id number] 1 803 Taking 03/05 00:00 :00 Nitroglycer in 0.4 MG/SPRA Y Solution 1 [id number] 012 Taking 02/01 00:00 :00 Nitroglycer in 0.4 MG/SPRA Y Solution 1 [id number] 012 Taking 01/24 00:00 :00 Nitroglycer in 0.4 MG/SPRA Y Solution 1 [id number] 012 Taking 01/17 00:00 :00 Nitroglycer in 0.4 MG/SPRA Y Solution 1 [id number] 012 Taking 01/04 00:00 :00 Nitroglycer in 0.4 MG/SPRA Y Solution 1 [id number] 012 Taking 01/17 00:00 :00 Ozempic (0.25 or 0.5 MG/DOSE) 2 MG/3ML Solution Pen-injecto r 1 [id number] 113 Taking 01/04 00:00 :00 Ozempic (0.25 or 0.5 MG/DOSE) 2 MG/3ML Solution Pen-injecto r 1 [id number] 113 Taking 02/01 00:00 :00 Ozempic (1 MG/DOSE) 2 MG/1.5M L Solution Pen-injecto r 1 Taking 01/24 00:00 :00 Ozempic (1 MG/DOSE) 2 MG/1.5M L Solution Pen-injecto r 1 Taking 03/05 00:00 :00 Ozempic (2 MG/DOSE) 8 MG/3ML Solution Pen-injecto r 1 [id number] 211 Taking 03/05 00:00 :00 rOPINIRole HCl 0.5 MG Tablet 1 [id number] 55 001 Taking 02/01 00:00 :00 rOPINIRole HCl 0.5 MG Tablet 1 [id number] 55 001 Taking 01/24 00:00 :00 rOPINIRole HCl 0.5 MG Tablet 1 [id number] 55 001 Taking 01/17 00:00 :00 rOPINIRole HCl 0.5 MG Tablet 1 792209 55 001 Taking 01/04 00:00 :00 rOPINIRole HCl 0.5 MG Tablet 1 422142 55 001 Taking 03/05 00:00 :00 Rosuvastati n Calcium 40 MG Tablet 1 722 39848 530 Taking 02/01 00:00 :00 Rosuvastati n Calcium 40 MG Tablet 1 722 70271 530 Taking 01/24 00:00 :00 Rosuvastati n Calcium 40 MG Tablet 1 722 55435 530 Taking 01/17 00:00 :00 Rosuvastati n Calcium 40 MG Tablet 1 722 88695 530 Taking 01/04 00:00 :00 Rosuvastati n Calcium 40 MG Tablet 1 722 88071 530 Taking 03/05 00:00 :00 Spirometer - Kit 01/25/2024 00:00:00 1 1 0 [id number] 0 07 P Taking 02/01 00:00 :00 Spirometer - Kit 01/25/2024 00:00:00 1 1 0 [id number] 0 07 P Taking 01/24 00:00 :00 Spirometer - Kit 01/25/2024 00:00:00 1 1 0 [id number] 0 07 P Start 03/05 00:00 :00 Spironolact one 25 MG Tablet 1 [id number] 4 601 Taking 02/01 00:00 :00 Spironolact one 25 MG Tablet 1 2679741 4 601 Taking 01/24 00:00 :00 Spironolact one 25 MG Tablet 1 [id number] 4 601 Taking 01/17 00:00 :00 Spironolact one 25 MG Tablet 1 9415196 4 601 Taking 01/04 00:00 :00 Spironolact one 25 MG Tablet 1 [id number] 4 601 Taking 03/05 00:00 :00 Torsemide 10 MG Tablet 1 1069616 7 201 Taking 02/01 00:00 :00 Torsemide 10 MG Tablet 1 2271219 7 201 Taking 01/24 00:00 :00 Torsemide 10 MG Tablet 1 1922852 7 201 Taking 01/17 00:00 :00 Torsemide 10 MG Tablet 1 [id number] 7 201 Taking 01/04 00:00 :00 Torsemide 10 MG Tablet 1 [id number] 7 201 Taking 01/24 00:00 :00 Zithromax Z-Da 250 MG Tablet 1 956165 06 075 P New 01/24 00:00 :00 Zithromax Z-Da 250 MG Tablet 01/18/2024 00:00:00 0 1 0 [id number] 6 075 P Discontinu ed 01/17 00:00 :00 Zithromax Z-Da 250 MG Tablet 01/18/2024 00:00:00 1 1 0 [id number] 6 075 P Start
--- OUTSIDE RECORDS SUMMARY | 2024-10-26 10:59 | XMS_ITS | Encounter Summary ---
Author Organization [place] [address] Care Team Providers Care Ornamenter Hand Name Role Phone Fili Sanchez MD Unavailable Aba Espinoza MD Primary Care Provider [phone] Julio Silva MD Unavailable Reason for Visit * Reason Onset Date Comments Paperwork/forms 09/20/2024 [place]-FreeStyle 3 Plus Sensor Only Encounter Details Date Type Department Care Team (Late st Contact Info) Description 09/20[facility]2024 [facility] [address] [facility] [address] [place], [place] [address] Dat Onofre MD [address] [place] [address] Paperwork/forms ([place]-FreeStyle 3 Plus Sensor Only) Social History Tobacco Use Types Packs/Day Years [...] Telephone Encounter - Dalila Hudson MA - 09/20/2024 8:40 AM EDT Images from the original note were not included. Completed order for FreeStyle 3 Plus Sensor Only supplies through [employer] using [employer] documented in this encounter Plan of Treatment Upcoming Encounters Date Type Department Care Team (Late st Contact Info) Description 11/01/2024 12:00 PM EDT Office Visit [facility] 40 [facility] 101 [place] [address] Oliver Wayne MD 40 [facility] 101 [facility] [place] [address] 01/02/2025 10:15 AM EST Office Visit [facility] Diabetes [place] [address] [phone] Dat Onofre MD 1500 [place] [address] 03/28/2025 11:15 AM EST Office Visit [facility] Nephrology [place] 830 [facility] 202 [place] [address] Julio Silva MD 830 [facility] 202 [place] [address] documented as of this encounter Visit Diagnoses Not on filedocumented in this encounter Additional Health Concerns Assessment Noted Time A fall risk assessment has been complete d for the patient 10/19/2023 9:50 AM EDT documented as of this encounter Care Teams Ornamenter Hand Relationship Specialty Start Date End Date Aba Espinoza MD [address] [place] [address] [place] [id number] PCP - General Family Medicine 07/27/16 Fili Sanchez MD [address] [facility] [address] [place] [address] Internal Medicine-Endocrinology, Diabetes & Metabolism 04/11/14 Julio Silva MD 830 [facility] [address] [place] [address] Physician Internal Medicine-Nephrology 04/25/24 documented as of this encounter
--- OUTSIDE RECORDS SUMMARY | 2024-10-26 10:59 | XMS_ITS | Encounter Summary ---
Author Organization [facility] Address [address] [place] [address] Care Team Providers Care Guitar Teacher Name Role Phone Fili Sanchez MD Unavailable [phone] Aba Espinoza MD Primary Care Provider [phone] Julio Silva MD Unavailable Reason for Visit * Reason Onset Date Comments Other 10/18/2024 Medical records Encounter Details Date Type Department Care Team (Late st Contact Info) Description 10/18/2024 Telephone [facility] Nephrology [place] [address] [facility] 202 [place] [address] Julio Silva MD [address] [place] [address] Other (Medical records ) Social History Tobacco Use Types Packs/Day [...] encounter Miscellaneous Notes * Telephone Encounter - Keturah Vazquez RMA - 10/18/2024 4:23 PM EDT Faxed over medical records to Rosalee at [facility] . documented in this encounter Plan of Treatment Upcoming Encounters Date Type Department Care Team (Late st Contact Info) Description 11/01/2024 12:00 PM EDT Office Visit [facility] 40 [facility] 101 [place] [address] Oliver Wayne MD 40 [facility] 101 [facility] [place] [address] 01/02/2025 10:15 AM EST Office Visit [facility] 1500 [facility] 301 [place] [address] Dat Onofre MD 1500 [place] [address] 03/28/2025 11:15 AM EST Office Visit [facility] Nephrology [place] [address] [facility] [address] [facility] 202 [place] [address] Julio Silva MD 830 [facility] 202 [place] [address] documented as of this encounter Visit Diagnoses Not on filedocumented in this encounter Additional Health Concerns Assessment Noted Time A fall risk assessment has been complete d for the patient 10/19/2023 9:50 AM EDT documented as of this encounter Care Teams Guitar Teacher Relationship Specialty Start Date End Date Aba Espinoza MD [address] [place] [phone] PCP - General Family Medicine 07/27/16 Fili Sanchez MD 1500 [facility] [address] [place] [address] Internal Medicine-Endocrinology, Diabetes & Metabolism 04/11/14 Julio Silva MD 830 [facility] [address] [place] [address] Physician Internal Medicine-Nephrology 04/25/24 documented as of this encounter
--- OUTSIDE RECORDS SUMMARY | 2024-10-26 10:59 | XMS_ITS | Encounter Summary ---
Author Organization [place] [address] Care Team Providers Care Log Peeler Name Role Phone Fili Sanchez MD Unavailable [phone] Aba Espinoza MD Primary Care Provider [phone] Julio Silva MD Unavailable Reason for Visit * Reason Onset Date Comments Research 10/16/2024 Encounter Details Date Type Department Care Team (Late st Contact Info) Description 10/16/2024 Telephone [facility] 20 [facility] [address] [place] [id number] Jennifer Wyman, RN Research Social History Tobacco [...] Telephone Encounter - Jennifer Wyman, RN - 10/16/2024 1:36 PM EDT Called and spoke with Dane regarding research. He requested that information be sent again. documented in this encounter Plan of Treatment Upcoming Encounters Date Type Department Care Team (Late st Contact Info) Description 11/01/2024 12:00 PM EDT Office Visit [facility] 40 [facility] 101 [place] [address] Oliver Wayne MD 40 [facility] 101 [facility] [place], [place] [address] 01/02/2025 10:15 AM EST Office Visit [facility] [address] [address] Dat Onofre MD [address] [place], [place] [address] 03/28/2025 11:15 AM EST Office Visit [facility] Nephrology [place] [facility] [facility] 202 [place] [address] Julio Silva MD 830 [facility] 202 [place] [address] documented as of this encounter Visit Diagnoses Not on filedocumented in this encounter Additional Health Concerns Assessment Noted Time A fall risk assessment has been complete d for the patient 10/19/2023 9:50 AM EDT documented as of this encounter Care Teams Log Peeler Relationship Specialty Start Date End Date Aba Espinoza MD [address] [place] [phone] PCP - General Family Medicine 07/27/16 Fili Sanchez MD [address] [address] Internal Medicine-Endocrinology, Diabetes & Metabolism 04/11/14 Julio Silva MD 830 [place] [address] Physician Internal Medicine-Nephrology 04/25/24 documented as of this encounter
--- OUTSIDE RECORDS SUMMARY | 2024-10-26 10:59 | XMS_ITS | Encounter Summary ---
Author Organization [facility] [place] [address] Care Team Providers Care Auditing Specialist Name Role Phone Fili Sanchez MD Unavailable [phone] Aba Espinoza MD Primary Care Provider [phone] Julio Silva MD Unavailable Encounter Details Date Type Department Care Team (Latest Contact Info) Description 10/04/2024 Travel Social History Tobacco Use Types Packs/Day [...] 12:00 PM EDT Office Visit [facility] [address] [address] Oliver Wayne MD 40 [facility] 101 [facility] [place] [address] 01/02/2025 10:15 AM EST Office Visit [facility] [address] [facility] [address] [place] [address] Dat Onofre MD [address] [place] [address] 03/28/2025 11:15 AM EST Office Visit [facility] Nephrology [place] [address] [place] [address] Julio Silva MD [address] [place] [address] documented as of this encounter Visit Diagnoses Not on filedocumented in this encounter Additional Health Concerns Assessment Noted Time A fall risk assessment has been complete d for the patient 10/19/2023 9:50 AM EDT documented as of this encounter Care Teams Auditing Specialist Relationship Specialty Start Date End Date Aba Espinoza MD [address] [place] [address] PCP - General Family Medicine 07/27/16 Fili Sanchez MD [address] [facility] [address] [place] [address] Internal Medicine-Endocrinology, Diabetes & Metabolism 04/11/14 Julio Silva MD [address] [place] [address] Physician Internal Medicine-Nephrology 04/25/24 documented as of this encounter
--- OUTSIDE RECORDS SUMMARY | 2024-10-26 10:59 | XMS_ITS | Encounter Summary ---
Author Organization [place] [address] Care Team Providers Care Repeat Chief Name Role Phone Fili Sanchez MD Unavailable Aba Espinoza MD Primary Care Provider [phone] Julio Silva MD Unavailable Reason for Visit * Reason Onset Date Comments Cancellation 09/03/2024 Encounter Details Date Type Department Care Team (Late st Contact Info) Description 09/03/2024 Telephone [facility] [address] [facility] [address] [place] [address] Dat Onofre MD [address] [place] [address] Cancellation Social History Tobacco Use Types Packs/Day [...] encounter Miscellaneous Notes * Telephone Encounter - Rosalee Bowens MA - 09/03/2024 11:07 AM EDT Noted, no labs to review. * Telephone Encounter - Natalia Serrano - 09/03/2024 10:04 AM EDT pt called to cancel 09/06 appt due to being out of town. pt rs for 10/01. documented in this encounter Plan of Treatment Upcoming Encounters Date Type Department Care Team (Late st Contact Info) Description 11/01/2024 12:00 PM EDT Office Visit [facility] [address] 101 [place] [address] Oliver Wayne MD 40 [facility] 101 [facility] [place] [address] 01/02/2025 10:15 AM EST Office [facility] 1500 [facility] 301 [place] [address] Dat Onofre MD 1500 [place] [address] 03/28/2025 11:15 AM EST Office Visit [place] Nephrology [place] [address] [facility] [address] [facility] 202 [place] [address] Julio Silva MD [address] [facility] 202 [place] [address] documented as of this encounter Visit Diagnoses Not on filedocumented in this encounter Additional Health Concerns Assessment Noted Time A fall risk assessment has been complete d for the patient 10/19/2023 9:50 AM EDT documented as of this encounter Care Teams Repeat Chief Relationship Specialty Start Date End Date Aba Espinoza MD [address] [place] [phone] PCP - General Family Medicine 07/27/16 Fili Sanchez MD 1500 [facility] [address] [place] [address] Internal Medicine-Endocrinology, Diabetes & Metabolism 04/11/14 Julio Silva MD 830 [facility] [address] [place] [address] Physician Internal Medicine-Nephrology 04/25/24 documented as of this encounter
--- OUTSIDE RECORDS SUMMARY | 2024-10-26 10:59 | XMS_ITS | Encounter Summary ---
Author Organization [place] [address] Care Team Providers Care Child Development Associate Teacher Name Role Phone Fili Sanchez MD Unavailable [phone] Aba Espinoza MD Primary Care Provider [phone] Julio Silva MD Unavailable Reason for Visit * Reason Onset Date Comments Paperwork/forms 10/17/2024 Encounter Details Date Type Department Care Team (Late st Contact Info) Description 10/17/2024 Telephone [facility] Diabetes [address] [address] Dat Onofre MD [address] [place] [address] Paperwork/forms Social History Tobacco Use Types Packs/Day [...] Telephone Encounter - Lian Quick MA - 10/18/2024 8:45 AM EDT records and labs and GEOFF note faxed * Telephone Encounter - James Galeana - 10/17/2024 11:28 AM EDT Rosalee from [facility] called FAX [phone] Requesting records and labs, GEOFF notes please documented in this encounter Plan of Treatment Upcoming Encounters Date Type Department Care Team (Late st Contact Info) Description 11/01/2024 12:00 PM EDT Office Visit [facility] [address] [address] Oliver Wayne MD 40 [facility] 101 [facility] [place], [place] [id number] 01/02/2025 10:15 AM EST [facility] 1500 [facility] [address] [place] [phone] Dat Onofre MD 1500 [place] [address] 03/28/2025 11:15 AM EST Office Visit [facility] Nephrology [place] [address] [facility] [address] [place] [address] Julio Silva MD 830 [facility] 202 [place] [address] documented as of this encounter Visit Diagnoses Not on filedocumented in this encounter Additional Health Concerns Assessment Noted Time A fall risk assessment has been complete d for the patient 10/19/2023 9:50 AM EDT documented as of this encounter Care Teams Child Development Associate Teacher Relationship Specialty Start Date End Date Aba Espinoza MD [address] [place] [id number] PCP - General Family Medicine 07/27/16 Fili Sanchez MD [address] [facility] [address] [place] [address] Internal Medicine-Endocrinology, Diabetes & Metabolism 04/11/14 Julio Silva MD 830 [facility] [address] [place] [address] Physician Internal Medicine-Nephrology 04/25/24 documented as of this encounter
--- OUTSIDE RECORDS SUMMARY | 2024-10-26 10:59 | XMS_ITS | Encounter Summary ---
Author Organization [facility] [place] [address] Care Team Providers Care Tank Farm Attendant Name Role Phone Fili Sanchez MD Unavailable [phone] Aba Espinoza MD Primary Care Provider [phone] Julio Silva MD Unavailable Encounter Details Date Type Department Care Team (Latest Contact Info) Description 09/26/2024 Travel Social History Tobacco Use Types Packs/Day [...] 12:00 PM EDT Office Visit [facility] [address] [address] Oliver Wayne MD 40 [facility] 101 [facility] [place] [address] 01/02/2025 10:15 AM EST Office Visit [facility] [address] [facility] [address] [place] [phone] Dat Onofre MD [address] [place] [address] 03/28/2025 11:15 AM EST Office Visit [facility] Nephrology [place] [address] [place] [address] Julio Silva MD [address] [place] [address] documented as of this encounter Visit Diagnoses Not on filedocumented in this encounter Additional Health Concerns Assessment Noted Time A fall risk assessment has been complete d for the patient 10/19/2023 9:50 AM EDT documented as of this encounter Care Teams Tank Farm Attendant Relationship Specialty Start Date End Date Aba Espinoza MD [address] [place] [address] [place] [address] PCP - General Family Medicine 07/27/16 Fili Sanchez MD [address] [facility] [address] [place] [phone] Internal Medicine-Endocrinology, Diabetes & Metabolism 04/11/14 Julio Silva MD [address] [place] [address] Physician Internal Medicine-Nephrology 04/25/24 documented as of this encounter
--- OUTSIDE RECORDS SUMMARY | 2024-10-26 10:59 | XMS_ITS | Encounter Summary ---
Author Organization [place] [address] Care Team Providers Care Delivery Table Operator Name Role Phone Fili Sanchez MD Unavailable [phone] Aba Espinoza MD Primary Care Provider [phone] Julio Silva MD Unavailable Reason for Visit * Reason Onset Date Comments Paperwork/forms 10/03/2024 [facility]-FreeStyle 3 Plus Sensor Only Encounter Details Date Type Department Care Team (Late st Contact Info) Description 10/03/2024 Telephone [facility] [address] [facility] [address] [place], [place] [address] Dat Onofre MD [address] [place] [address] Paperwork/forms ([place]-FreeStyle 3 Plus Sensor Only) Social History Tobacco [...] Telephone Encounter - Dalila Hudson MA - 10/03/2024 6:49 AM EDT Images from the original note were not included. Completed order for FreeStyle 3 Plus Sensor Only supplies through [place] using [employer] documented in this encounter Plan of Treatment Upcoming Encounters Date Type Department Care Team (Late st Contact Info) Description 11/01/2024 12:00 PM EDT Office Visit [facility] 40 [facility] 101 [place] [address] Oliver Wayne MD 40 [facility] 101 [facility] [place] [address] 01/02/2025 10:15 AM EST Office Visit [facility] Diabetes [place] [address] [phone] Dat Onofre MD 1500 [place] [address] 03/28/2025 11:15 AM EST Office Visit [facility] Nephrology [place] [address]30 [facility] 202 [place] [address] Julio Silva MD 830 [facility] 202 [place] [address] documented as of this encounter Visit Diagnoses Not on filedocumented in this encounter Additional Health Concerns Assessment Noted Time A fall risk assessment has been complete d for the patient 10/19/2023 9:50 AM EDT documented as of this encounter Care Teams Delivery Table Operator Relationship Specialty Start Date End Date Aba Espinoza MD [address] [place] [address] [place] [phone] PCP - General Family Medicine 07/27/16 Fili Sanchez MD [address] [facility] [address] [place] [address] Internal Medicine-Endocrinology, Diabetes & Metabolism 04/11/14 Julio Silva MD 830 [facility] [address] [place] [address] Physician Internal Medicine-Nephrology 04/25/24 documented as of this encounter
--- OUTSIDE RECORDS SUMMARY | 2024-10-26 11:00 | XMS_ITS | Encounter Summary ---
Author Organization [facility] Address [address] [place] [address] Care Team Providers Care Top Lift Scourer Name Role Phone Aba Espinoza MD Primary Care Provider [phone] Encounter Details Date Type Department Care Team (Late Contact Info) Description 04/07/2018 External CPT II SANDWICH HAND - [facility] Social History Tobacco [...] Info) Description 11/05/2024 10:00 AM EDT Telemedicine [facility] SLEEP MEDICINE [address] [facility] [address] [place] [phone] Rosalino Tom, GRILL PREP COOK [address] [place] [address] documented as of this encounter Visit Diagnoses Not on filedocumented in this encounter Care Teams Top Lift Scourer Relationship Specialty Start Date End Date Aba Espinoza MD [address] [facility] [address] [place] [address] PCP - General Family Medicine 02/17/18 documented as of this encounter
--- OUTSIDE RECORDS SUMMARY | 2024-10-26 11:00 | XMS_ITS | Encounter Summary ---
Author Organization [facility] Address [address] [place] [address] Care Team Providers Care Learning Support Specialist Name Role Phone Aba Espinoza MD Primary Care Provider [phone] Encounter Details Date Type Department Care Team (Late Contact Info) Description 12/09/2017 External CPT II LOSS PREVENTION COORDINATOR - [facility] Social History Tobacco Use [...] Info) Description 11/05/2024 10:00 AM EDT Telemedicine [facility] SLEEP MEDICINE 3000 [facility] [address] [place] [phone] Rosalino Tom, ROOTER OPERATOR [address] [place] [address] documented as of this encounter Visit Diagnoses Not on filedocumented in this encounter Care Teams Learning Support Specialist Relationship Specialty Start Date End Date Aba Espinoza MD [address] [facility] [address] [place] [address] PCP - General Family Medicine 02/17/18 documented as of this encounter
--- OUTSIDE RECORDS SUMMARY | 2024-10-26 11:00 | XMS_ITS | Encounter Summary ---
Author Organization [facility] Address [address] [place] [address] Care Team Providers Care Concrete Floor Installer Name Role Phone Aba Espinoza MD Primary Care Provider [phone] Encounter Details Date Type Department Care Team (Late Contact Info) Description 07/20/2017 External CPT II SUPERVISOR TELEPHONE CLERKS - [facility] Social History Tobacco Use [...] [facility]EP [facility] [address] [facility] [address] [place] [phone] Rosalino Tom, CREASING AND CUTTING PRESS FEEDER [address] [place] [address] documented as of this encounter Visit Diagnoses Not on filedocumented in this encounter Care Teams Concrete Floor Installer Relationship Specialty Start Date End Date Aba Espinoza MD [address] [facility] [address] [place] [address] PCP - General Family Medicine 02/17/18 documented as of this encounter
--- OUTSIDE RECORDS SUMMARY | 2024-10-26 11:01 | XMS_ITS | Encounter Summary ---
Author Organization [facility] Address [address] [place] [address] Care Team Providers Care Mud Mixer Helper Name Role Phone Aba Espinoza MD Primary Care Provider [phone] Encounter Details Date Type Department Care Team (Late Contact Info) Description 06/01/2018 External CPT II NEGATIVE TURNER - [facility] Social History Tobacco Use [...] Info) Description 11/05/2024 10:00 AM EDT Telemedicine [facility] SLEEP MEDICINE [address] [facility] [address] [place] [phone] Rosalino Tom, PROCUREMENT CLERK [address] [place] [address] documented as of this encounter Visit Diagnoses Not on filedocumented in this encounter Care Teams Mud Mixer Helper Relationship Specialty Start Date End Date Aba Espinoza MD 12[address] [place] [facility] [address] [place] [address] PCP - General Family Medicine 02/17/18 documented as of this encounter
--- OUTSIDE RECORDS SUMMARY | 2024-10-26 11:02 | XMS_ITS | Clinical Summary ---
Author Organization [facility] Address [address] [place] [address] Phone Care Team Providers Care Custodian Name Role Phone Fili Sanchez MD Unavailable [phone] Aba Espinoza MD Primary Care Provider [phone] Julio Silva MD Unavailable Allergies Active Allergy Reactions Criticality Noted Date Comments Pioglitazone Other (See Comments) 02/25/2023 HF Epinephrine Other (See Comments) 05/04/2021 Contraindicated related to pt's EF=25% Metformin Swelling Medium 10/28/2022 Swelling of feet and myalgias Rosuvastatin Other (See Comments) 04/11/2023 Leg cramps and pain. Medications aspirin (ASPIRIN) 81 mg Oral Tablet, Chewable Take 1 Tab by mouth daily. 30 Tab 0 015 Active escitalopram oxalate (LEXAPRO) 20 mg Oral Tablet Take by mouth daily. Active sacubitriL-rylee sartan (ENTRESTO) 24-26 mg Oral Tablet Take 1 Tab by mouth 2 times daily. Active nitroGLYCERIN (NITROLINGUAL) 400 mcg/spray TL Marrero, Non-Aerosol Place 1 Marrero under the tongue every 5 minutes as needed for Chest pain. Active allopurinoL (ZYLOPRIM) 100 mg Oral Tablet 100 mg daily. TAKES IN EVENING 020 Active Blood Sugar Diagnostic (ACCU-CHEK GUIDE TEST STRIPS) [facility] Strip Use to test blood sugars daily. Dx Code:E11.65 100 Strip 3 021 Active magnesium oxide 400 mg magnesium Oral Capsule Take by mouth. Take 2 times daily Active rOPINIRole (REQUIP) 0.5 mg Oral Tablet Take 0.5 mg by mouth. Takes once daily at night 021 Active torsemide (DEMADEX) 10 mg Oral Tablet 10 mg. Takes one tab MWF 022 Active carvediloL (COREG) 25 mg Oral Tablet Take 25 mg by mouth 2 times daily. Active rosuvastatin (CRESTOR) 20 mg Oral Tablet Take 20 mg by mouth daily. 023 Active cyanocobalamin 1,000 mcg Oral Tablet Take 1 Tablet by mouth daily. Take one tab daily 024 Active empagliflozin (JARDIANCE) 25 mg Oral TabletIndicati ons:Type 2 diabetes mellitus with hyperglycemia, with long-term current use of insulin ([facility]) Take 1 Tablet by mouth daily. 90 Tablet 3 024 Active ergocalciferol (VITAMIN D) 1,250 mcg (50,000 unit) Oral CapsuleIndicat ions:Type 2 diabetes mellitus with microalbuminur ia, with long-term current use of insulin ([facility]) TAKE 1 CAPSULE BY MOUTH ONCE WEEKLY 13 Capsule 1 025 Active insulin glargine (LANTUS SOLOSTAR U-100 INSULIN) 100 unit/mL (3 mL) SubQ Insulin Pen Inject 24 units every day 30 mL 1 025 Active Blood-Glucose Sensor (FREESTYLE THIEN 3 PLUS SENSOR) [facility] DeviceIndicati ons:Type 2 diabetes mellitus with microalbuminur ia, with long-term current use of insulin ([facility]) Inject 1 Each under the skin every 15 days. DME 6 Each 3 025 Active semaglutide (OZEMPIC) 2 mg/dose (8 mg/3 mL) SubQ Pen InjectorIndica tions:Type 2 diabetes mellitus with microalbuminur ia, with long-term current use of insulin ([facility]) INJECT SUBCUTANEOUSLY 2 MG EVERY WEEK 3 mL 2 025 Active glipiZIDE (GLUCOTROL) 10 mg Oral Tablet Take 1 Tablet by mouth every morning. 90 Tablet 1 Active Insulin Pillsbury, Disposable, (BD PATITO 2ND GEN PEN NEEDLE) 32 gauge x 5/32 Misc Needle Use with insulin once daily 100 Each 1 Active fluticasone propionate (FLONASE) 50 mcg/actuation Nasl Marrero, SuspensionIndi cations:Chroni c sinusitis, unspecified location,Devia duglas nasal septum,Hypertr ophy of nasal turbinates 2 Sprays by Nasal route daily. 1 Each 5 Active azelastine (ASTELIN) 137 mcg (0.1 %) Nasl Marrero, Non-AerosolInd ications:Chron ic sinusitis, unspecified location,Devia duglas nasal septum,Hypertr ophy of nasal turbinates 2 Sprays in each nostril daily. Use in each nostril as directed 30 mL 5 Active sod ahnju-dcvuvv-f queez bottle (NEILMED SINUS RINSE COMPLETE) mark packet with rinse deviceIndicati ons:Chronic sinusitis, unspecified location,Devia duglas nasal septum,Hypertr ophy of nasal turbinates 1 Package by sinus irrigation route daily for 30 days. 30 Each 4 025 2024 Active finerenone (KERENDIA) 10 mg Oral TabletIndicati ons:Diabetic nephropathy associated with type 2 diabetes mellitus (HCC),Diastoli c congestive heart failure, unspecified HF chronicity (HCC) Take 10 mg by mouth daily. 30 Tablet 11 Active spironolactone (ALDACTONE) 25 mg Oral Tablet Take 25 mg by mouth daily. 2024 Discontinued(C ancelled by ) bempedoic acid 180 mg Oral Tablet Take 180 mg by mouth daily. 024 2024 Discontinued(C ost of medication) Insulin Pillsbury, Disposable, (BD PATITO 2ND GEN PEN NEEDLE) 32 gauge x 5/32 Misc Needle Use with insulin once daily 100 Each 1 025 2024 Discontinued(R eorder) glipiZIDE (GLUCOTROL) 10 mg Oral Tablet Take 1 Tablet by mouth every morning. 90 Tablet 1 025 2024 Discontinued(R eorder) finerenone (KERENDIA) 10 mg Oral TabletIndicati ons:Diabetic nephropathy associated with type 2 diabetes mellitus (HCC) Take 10 mg by mouth daily. 30 Tablet 11 025 2024 Discontinued Active Problems Problem Noted Date Diagnosed Date Difficulty walking 04/06/2024 Hyperlipidemia associated with type 2 diabetes m [...] Encounters Date Type Department Care Team Description 10/18/2024 Telephone [facility] Nephrology [place] [address] [place] [address] Julio Silva MD Other (Medical records ) 10/17/2024 Telephone [facility] [address] [address] Dat Onofre MD Paperwork/forms 10/16/2024 Telephone [facility] [address] [place] [address] [address] [place] [phone] Jennifer Wyman RN Research 10/11/2024 11:30 AM EDT Office Visit [facility] Nephrology [place] [address] [place] [address] Julio Silva MD Stage 3a chronic kidney disease (HCC) (Primary Dx); Diabetic nephropathy associated with type 2 diabetes mellitus (HCC); Diastolic congestive heart failure, unspecified HF chronicity (HCC); Chronic kidney disease-mineral and bone disorder 10/09/2024 4:30 PM EDT Office Visit [facility] [address] [place] [phone] Dane Alanis DPM Pain in toes of both feet (Primary Dx); Right foot pain; Type 2 diabetes mellitus with microalbuminuria, with long-term current use of insulin (HCC); Onychodystrophy; Onychomycosis; Corns and callosities; Difficulty walking; Type 2 diabetes mellitus with diabetic nephropathy, with long-term current use of insulin ([facility]) 10/04/2024 2:20 PM EDT Office Visit [facility] [address] [address] Oliver Wayne MD Chronic sinusitis, unspecified location (Primary Dx); Deviated nasal septum; Hypertrophy of nasal turbinates; Impacted cerumen, left ear; IVY (obstructive sleep apnea) 10/04/2024 Travel 10/03/2024 Telephone [facility] [employer] [address] [place] [address] [place] [id number] Jennifer Wyman RN Research 10/03/[address] [phone] Dat Onofre MD Paperwork/forms (Chelsie-FreeStyle 3 Plus Sensor Only) 10/02/2024 Refill [facility] [address] [address] Dat Onofre MD Medication Refill 10/01/2024 1:45 PM EDT Office Visit [address] [address] Dat Onofre MD Type 2 diabetes mellitus with microalbuminuria, with long-term current use of insulin (HCC) (Primary Dx); Hypertension associated with diabetes (HCC); Hyperlipidemia associated with type 2 diabetes mellitus (HCC); Chronic sinusitis, unspecified location 10/01/2024 12:35 PM EDT - 10/01/2024 11:59 PM EDT Hospital Encounter [facility] [address] [place] [address] Stage 3b chronic kidney disease (HCC); HTN (hypertension), benign; Chronic kidney disease-mineral and bone disorder Discharge Disposition: Home or Self Care 09/26/2024 Travel 09/20/2024 Telephone [facility] [address] [address] Dat Onofre MD Paperwork/forms (Chelsie-FreeStyle 3 Plus Sensor Only) 09/03/2024 Telephone [facility] [address] [address] Dat Onofre MD Cancellation 08/17/2024 Refill [facility] [address] [address] Dat Onofre MD Medication Refill 07/27/2024 Patient Outreach [facility] Nephrology [place] [address] [facility] [address] [place] [address] Julio Silva MD [facility] CCM Enrollment (Jennifer Méndez ( Gretchen ) //* 08/06/24: Spoke w/ pt and he completed enrollment. -GW */* 07/27/24: Initial- 1st call attempt- no answer. Left a voice message instructing pt to call back. -GW *) from Last 3 Months Immunizations Immunization Administration Dates Next Due Hepatitis A, Adult 03/10/2018 Influenza High Dose 10/13/2023,12/15/2017,2016 Influenza Nasal, Unspecified Formulation 020,11/14/2018 Pneumococcal Conjugate Vaccine 13 Valent 020 Pneumococcal Conjugate Vaccine 20 Valent 022 Pneumococcal Polysaccharide 23 Valent 12/07/2016 Quadrivalent Influenza High Dose 10/12/2021,12/15 Tdap 02/07/2020,02/06/2020 Varicella 02/06/2020 Zoster Recombinant 04/15/2020,02/07/2020 Surgical History Surgery Date Site/Laterality Comments PACEMAKER PLACEMENT COLONOSCOPY BYPASS GRAFT 11/14/2021 - 12/14/2021 Medical History Medical History Date Comments Diabetes mellitus (HCC) High blood pressure Hyperlipidemia Uncontrolled diabetes mellit us with stage 3 chronic kidney disease, without long-term current use of insulin 02/22/2019 Multiple endocrine neoplasia (HCC) Difficulty walking Neuropathy in diabetes (HCC) Family History Medical History Relation Name Comments Diabetes Father Victorino pham Heart Attack Father Victorino pham Heart Attack Mother Relation Name Status Comments Father Victorino pham Alive Mother Social History Tobacco Use Types Packs/Day [...] Pulse 66 10/11/2024 11:24 AM EDT Temperature 36.5 C (97.7 F) 10/09/2024 4:22 PM EDT Respiratory Rate 18 10/01/2024 1:19 PM EDT Oxygen Saturation - - Inhaled Oxygen Concentration - - Weight 120.2 kg (265 lb) 10/11/2024 11:24 AM EDT Height 190.5 cm (6' 3 ) 10/11/2024 11:24 AM EDT Body Mass Index 33.12 10/11/2024 11:24 AM EDT Plan of Treatment Upcoming Encounters Date Type Department Care Team (Late st Contact Info) Description 11/01/2024 12:00 PM EDT Office Visit [facility] [place] [address] [facility] [address] [place] [address] Oliver Wayne MD [address] [facility] [address] [facility] [place], [place] [phone] 01/02/2025 10:15 AM EST [facility] [address] [facility] [address] [place] [address] Dat Onofre MD [address] [place] [address] 03/28/2025 11:15 AM EST Office Visit [facility] Nephrology [place] [address] [facility] [address] [facility] [address] [place] [address] Julio Silva MD [address] [facility] [address] [facility] [address] [place], [place] [phone] Health Maintenance Due Date Last Done Comments Wellness Exam Medicare 10/21/1953 Hepatitis C Screening 10/21/1969 Cologuard 10/21/1996 Colon Cancer Screening 10/21/1996 Colonoscopy 10/21/1996 FIT 10/21/1996 Sigmoidoscopy 10/21/1996 Virtual Colonography 10/21/1996 Low Dose Lung Cancer Screening 10/21/2001 RSV or 60+ (1 - Risk 60-74 years 1-dose series) 2011 AAA Screening 10/21/2016 COVID-19 Vaccine ( season) 2024 12/30/2020, 03/18/2020, 02/20/2020 Influenza Vaccine (#1) 2024 , 11/01/2022, 02/04/2022, Additional history exists Hemoglobin A1c 04/03/2025 10/01/2024, 05/15, 01/30/2024, Additional history exists Lipids 05/28/2025 05/28/2024, 10/15, 04/02/2022, Additional history exists Diabetic Eye Exam 05/22/2026 05/22/2024, , 04/15/2020, Additional history exists DTaP/TDaP/Td (3 - Td or Tdap) 02/06/2030 02/07/2020, 02/06/2020 Zoster Completed 04/15/2020, 02/07/2020 Pneumococcal Vaccine 50+ Completed 022, 01/24/2020, 12/07/2016 Hepatitis B Vaccine Aged Out No longe r eligible based on patient's age to complete this topic Meningococcal B Vaccine Aged Out No l onger eligible based on patient's age to complete this topic Procedures Procedure Name Priority Date/Time Associated Diagnosis Comments MICROALBUMIN/CREATININE RATIO URINE Routine 10/01/2024 2:40 PM EDT Stage 3b chronic kidney disease (HCC) URINALYSIS Routine 10/01/2024 2:40 PM EDT Stage 3b chronic kidney disease (HCC) PROTEIN/CREATININE RATIO URINE Routine 10/01/2024 2:40 PM EDT Stage 3b chronic kidney disease (HCC) HTN (hypertension), benign POCT GLYCATED HEMOGLOBIN, TOTAL Routine 10/01/2024 1:25 PM EDT Type 2 diabetes mellitus with microalbuminuria, with long-term current use of insulin (HCC) ALANINE AMINOTRANSFERASE Routine 025 12:49 PM EDT Stage 3b chronic kidney disease (HCC) ASPARTATE AMINOTRANSFERASE Routine 10/01/2024 12:49 PM EDT Stage 3b chronic kidney disease (HCC) PROTEIN TOTAL-BLOOD Routine 10/01/2024 1 2:49 PM EDT Stage 3b chronic kidney disease (HCC) ALKALINE PHOSPHATASE Routine 10/01/2024 12:49 PM EDT Stage 3b chronic kidney disease (HCC) BILIRUBIN TOTAL Routine 10/01/2024 12:49 PM EDT Stage 3b chronic kidney disease (HCC) BILIRUBIN DIRECT Routine 10/01/2024 12:4 9 PM EDT Stage 3b chronic kidney disease (HCC) PARATHYROID HORMONE INTACT Routine 10/01/2024 12:49 PM EDT Chronic kidney disease-mineral and bone disorder VITAMIN D 25 HYDROXY Routine 10/01/2024 12:49 PM EDT Chronic kidney disease-mineral and bone disorder RENAL FUNCTION PANEL Routine 10/01/2024 12:49 PM EDT Stage 3b chronic kidney disease (HCC) HTN (hypertension), benign LIPID PANEL REFLEX Routine 05/28/2024 10 :26 AM EDT Hyperlipidemia associated with type 2 diabetes mellitus (HCC) HM DIABETES EYE EXAM Routine 05/22/2024 11:48 AM EDT from Last 3 Months or Most Recently Relevant to Health Maintenance Results * PROTEIN/CREATININE RATIO URINE (10/01/2024 2:40 PM EDT) Urine Protein 13.3 mg/dL 10/01/2024 6:28 PM EDT [facility] [employer] Urine Creatinine 130.0 mg/dL 10/01/2024 6:28 PM EDT [facility] Ur Protein/Creat 0.10 mg/mg 10/01/2024 6:28 PM EDT [facility] Urine STRUCTURE OF URINARY TRACT PROPER / Unknown 10/01/2024 2:40 PM EDT 10/01/2024 2:40 PM EDT us Julio Silva MD URINE ORDERABLES Final Result [facility] [employer] [employer] [address] [facility] , [place] [address] [facility] [address] [place] [id number] * MICROALBUMIN/CREATININE RATIO URINE (10/01/2024 2:40 PM EDT) Urine Microalb 22.3 mg/L 10/01/2024 6:28 PM EDT [facility], [facility] Urine Creatinine 130.0 mg/dL 10/01/2024 6:28 PM EDT [facility], [facility] Ur Microalb/Creat 17 0 - 30 mg/g 10/01/2024 6:28 PM EDT [facility] Urine STRUCTURE OF URINARY TRACT PROPER / Unknown 10/01/2024 2:40 PM EDT 10/01/2024 2:40 PM EDT us Julio Silva MD URINE ORDERABLES Final Result [facility], [facility] [address] [facility] , [place] [address] [facility] 1 [place] [address] * (ABNORMAL) URINALYSIS (10/01/2024 2:40 PM EDT) UA Color Light Yellow 10/01/2024 4:23 PM EDT [facility] UA Appear Clear Clear 10/01/2024 4:23 PM EDT [facility], [facility] UA Glucose 4+ (>1000mg/dL) (A) Negative mg/dL 10/01/2024 4:23 PM EDT [facility] UA Ketones Negative Negative mg/dL 10/01/2024 4:23 PM EDT [facility] UA Blood Negative Negative 10/01/2024 4:23 PM EDT [facility] UA pH 6.0 5.0 - 8.0 pH 10/01/2024 4:23 PM EDT [facility] UA Protein Negative Negative mg/dL 10/01/2024 4:23 PM EDT [facility] UA Urobilinogen Normal <=1 mg/dL 4:23 PM EDT [facility] UA Bili Negative Negative 10/01/2024 4:23 PM EDT [facility] UA Nitrite Negative Negative 10/01/2024 4:23 PM EDT [facility] UA Leuk Est Negative Negative 10/01/2024 4:23 PM EDT [facility] UA Spec Grav 1.031 1.001 - 1.035 no units 10/01/2024 4:23 PM EDT [facility] [employer] [facility] Comment:Reference range ji d for random specimens only. Urine STRUCTURE OF URINARY TRACT PROPER / Unknown 10/01/2024 2:40 PM EDT 10/01/2024 2:40 PM EDT Result [facility] Julio Silva MD URINE ORDERABLES Final Result Performing Organization Address City/[facility] Co de Phone Number [facility] [employer] [facility] [address] [facility] , [place] [address] * (ABNORMAL) POCT GLYCATED HEMOGLOBIN, TOTAL (10/01/2024 1:25 PM EDT) Pathologist [facility] Hemoglobin A1C 7.3(A) 4 - 6 % SEP OFFICE Lot Number SEP OFFICE Expiration Date SEP OFFICE SeriAl # SEP OFFICE 10/01/2024 1:25 PM EDT Result [facility] Dat Onofre MD POINT OF CARE TEST ORDERABLES Final Result Performing Organization Address [facility] de Phone Number SEP OFFICE * BILIRUBIN DIRECT (10/01/2024 12:49 PM EDT) Pathologist [facility] Bili Direct <0.2 0.0 - 0.3 mg/dL 10/01/2024 7:40 PM EDT [facility] Blood VENOUS BLOOD / Unknown Venipuncture / Unknown 10/01/2024 12:49 PM EDT 10/01/2024 12:49 PM EDT Result [facility] Julio Silva MD CHEMISTRY ORDERABLES Final Resul t Performing Organization Address City/[facility] Co de Phone Number [employer] [facility] [address] [facility] , [place] [address] * VITAMIN D 25 HYDROXY (10/01/2024 12:49 PM EDT) Vit D 25 OH 49.4 30.0 - 150.0 ng/mL 10/01/2024 7:54 PM EDT [employer] Comment: Preferred: >= 30 ng/mL Insufficient: 21-29 [...] ORDERABLES Final Resul t Performing Organization Address City/[facility] Co de Phone Number [employer] [address] [place] [address] , [place] [address] * ALANINE AMINOTRANSFERASE (10/01/2024 12:49 PM EDT) ALT 20 <=41 U/L 10/01/2024 7:4 0 PM EDT [employer] Blood VENOUS BLOOD / Unknown Venipuncture / Unknown 10/01/2024 12:49 PM EDT 10/01/2024 12:49 PM EDT us Julio Silva MD CHEMISTRY ORDERABLES Final Resul t Performing Organization Address [facility] Co de Phone Number [employer] [address] [place] [address] , [place] [address] * ASPARTATE AMINOTRANSFERASE (10/01/2024 12:49 PM EDT) AST 20 <=40 U/L 10/01/2024 7:4 0 PM EDT [employer] Blood VENOUS BLOOD / Unknown Venipuncture / Unknown 10/01/2024 12:49 PM EDT 10/01/2024 12:49 PM EDT us Julio Silva MD CHEMISTRY ORDERABLES Final Resul t Performing Organization Address City/[facility] Co de Phone Number [employer] [address] [place] [address] [place] [address] * PROTEIN TOTAL-BLOOD (10/01/2024 12:49 PM EDT) [facility] Total Protein 7.0 6.4 - 8.3 gm/dL 10/01/2024 7:40 PM EDT [facility] [employer] Blood VENOUS BLOOD / Unknown Venipuncture / Unknown 10/01/2024 12:49 PM EDT 10/01/2024 12:49 PM EDT us Julio Silva MD CHEMISTRY ORDERABLES Final Resul t [facility] [employer] [address] , [place] [address] * ALKALINE PHOSPHATASE (10/01/2024 12:49 PM EDT) [facility] Alk Phos 55 40 - 129 U/L 10/01/2024 7:40 PM EDT [facility] Blood VENOUS BLOOD / Unknown Venipuncture / Unknown 10/01/2024 12:49 PM EDT 10/01/2024 12:49 PM EDT us Julio Silva MD CHEMISTRY ORDERABLES Final Resul t Performing Organization Address City/[facility]/ZIP Co de Phone Number [facility] [employer] [address] , [place] [address] * (ABNORMAL) PARATHYROID HORMONE INTACT (10/01/2024 12:49 PM EDT) [facility] PTH Intact 65.10(H) 15.00 - 65.00 pg/mL 10/01/2024 6:39 PM EDT [facility] [employer] Blood VENOUS BLOOD / Unknown Venipuncture / Unknown 10/01/2024 12:49 PM EDT 10/01/2024 12:49 PM EDT Narrative [facility] - 10/01/2024 6:39 PM EDT Intact PTH [...] ORDERABLES Final Resul t Performing Organization Address [facility] Co de Phone Number [facility] [employer] [address] [place] [address] , [place] [address] * BILIRUBIN TOTAL (10/01/2024 12:49 PM EDT) Pathologist [facility] Bili Total 0.5 0.2 - 1.4 mg/dL 10/01/2024 7:40 PM EDT [employer] Blood VENOUS BLOOD / Unknown Venipuncture / Unknown 10/01/2024 12:49 PM EDT 10/01/2024 12:49 PM EDT us Julio Silva MD CHEMISTRY ORDERABLES Final Resul t Performing Organization Address [facility] Co de Phone Number [facility] [employer] [address] [place] [address] , [place] [address] * (ABNORMAL) RENAL FUNCTION PANEL (10/01/2024 12:49 PM EDT) Sodium 139 136 - 145 mmol/L 10/01/2024 7:40 PM EDT [facility] [employer] [employer] Potassium 4.3 3.5 - 5.0 mmol/L 10/01/2024 7:40 PM EDT [facility] [employer] [employer] Chloride 103 98 - 107 mmol/L 10/01/2024 7:40 PM EDT [facility], [facility] Total CO2 23 22 - 29 mmol/L 10/01/2024 7:40 PM EDT [facility], [facility] Anion Gap 13 7 - 16 mmol/L 10/01/2024 7:40 PM EDT [facility], [facility] Calcium 9.8 8.8 - 10.4 mg/dL 10/01/2024 7:40 PM EDT [facility], [facility] Glucose Lvl 120(H) 70 - 99 mg/dL 10/01/2024 7:40 PM EDT [facility], [facility] BUN 25(H) 8 - 23 mg/dL 10/01/2024 7:40 PM EDT [facility], [facility] Creatinine 1.30 0.67 - 1.30 mg/dL 10/01/2024 7:40 PM EDT [facility], [facility] Albumin 4.3 3.2 - 4.6 gm/dL 10/01/2024 7:40 PM EDT [facility] Phosphorus 2.7 2.5 - 4.5 mg/dL 10/01/2024 7:40 PM EDT [facility] eGFR (CKD-EPIcr 2020) 58(L) >=60 mL/min/1.7 3 m2 10/01/2024 7:40 PM EDT [facility] Comment:Estimated GFR was ca lculated using the CKD-EPIcr (2020) equation refit without race. The equation is recommended by the National Kid[employer] - [place] [employer] of Nephrology Task Force. Blood VENOUS BLOOD / Unknown Venipuncture / Unknown 10/01/2024 12:49 PM EDT 10/01/2024 12:49 PM EDT us Julio Silva MD CHEMISTRY ORDERABLES Final Resul t [facility], [facility] [address] [facility] , [place] [address] * (ABNORMAL) LIPID PANEL REFLEX (05/28/2024 10:26 AM EDT) Cholesterol 119 <200 mg/dL 05/28/2024 4:48 PM EDT [facility], [facility] Comment: < 200 Desirable 200 - 239 Borderline High >= 240 High Triglyceride 157(H) <150 mg/dL 05/28/2024 4:48 PM EDT [employer] Comment: < 150 Normal 150 - 199 Borderline High 200 - 499 High >= 500 Very High HDL 43 >=40 mg/dL 05/28/2024 4:48 PM EDT [employer] Comment: > 60 Optimal 40 - 60 Acceptable < 40 Low LDL Calculated 49 <100 mg/dL 05/28/2024 4:48 PM EDT [employer] Comment: < 100 Optimal 100 - 129 Near or above optimal 130 - 159 Borderline High 160 - 189 High >= 190 Very High The National Institutes of Health (NIH) equation is used for all lipid panels that report calculated LDL (LDL-C). Non-HDL-C Calculated 76 <=129 mg/dL 05/28/2024 4:48 PM EDT [employer] Comment: <130 Desirable 130-159 Above Desirable 160-189 Borderline High 190-219 High >= 220 Very High Fasting Specimen? Yes None 025 4:48 PM EDT [employer] Blood VENOUS BLOOD / Unknown Venipuncture / Unknown 05/28/2024 10:26 AM EDT 05/28/2024 10:27 AM EDT Dat Onofre MD CHEMISTRY ORDERABLES Final Sarita cameron Performing Organization Address [facility] Co de Phone Number PREFERRED [employer] 1 [facility] , [place] [address] * DIABETES EYE EXAM (05/22/2024 11:48 AM EDT) Left Diabetic Retinopathy Not Present Not Present Present/Not Present SEP OFFICE Right Diabetic Retinopathy Not Present Not Present Present/Not Present SEP OFFICE Historical Provider HEALTH MAINTENANCE Edited Re sult - Final SEP OFFICE from Last 3 Months or Most Recently Relevant to Health Maintenance Insurance [place]ICARE [place] PART A [place] B [id number] [place]IC[place] A [place] [email or web address] [place] [email or web address] [place] [email or web address] Care Teams Custodian Relationship Specialty Start Date End Date Aba Espinoza MD [address] [place] [address] [place] [address] PCP - General Family Medicine 07/27/16 Fili Sanchez MD [address] [facility] [address] [place] [address] Internal Medicine-Endocrinology, Diabetes & Metabolism 04/11/14 Julio Silva MD [address] [facility] [address] [place] [address] Physician Internal Medicine-Nephrology 04/25/24
== END 2024-10-26 23:59 | disposition home or self-care (01) ==
LOC: RAD 10:55
PROVIDERS: PCP Family Medicine; Visit Provider Physician Assistant
DX: Z12.2 Encounter for screening for malignant neoplasm of respiratory organs (principal); R91.1 Solitary pulmonary nodule; Z87.891 Personal history of nicotine dependence
CPT/HCPCS: 71271